=== PATIENT | female | born 1975 | race Caucasian/White ===

== ENCOUNTER 2023-05-23 12:46 | Emergency (ER) | payer OTHER, SELFPAY ==
[2023-05-23 12:57] VITALS: BP 150/87; PULSE 85; RESP 18; O2SAT 84; BMI 18.8
[2023-05-23 13:07] VITALS: TEMP 36.6
--- NOTE | 2023-05-23 13:52 | ED.BACK1 ---
Documented by User: KIKA Machado 05/23/23 14:11 HPI - Back Pain/Injury General Chief Complaint: Back Pain/Injury Stated Complaint: BACK PAIN, LEFT HIP PAIN Time Seen by Provider: 05/23/23 13:49 Source: patient Mode of arrival: Wheelchair Limitations: no limitations History of Present Illness HPI Narrative: 47-year-old female with a history of chronic neck and back pain who sees a neurologist presents for left-sided back pain for the past 5 days. Pain radiates down to left knee. She states that she was supposed to have lower back surgery 4 months ago, but she cannot quit smoking. She has been taking Motrin, Tylenol, Flexeril and Zanaflex. She went to the chiropractor 5 days ago and had an x-ray that showed degenerative changes. She has an appointment tomorrow with her neurologist. Denies injury. denies hx CA or IVDU. denies bowel or bladder incontinence. Moving around makes pain worse. denies fever, abd pain or dysuria. Denies BLE swelling, temp or sensation changes. Related Data Previous Rx's Medication Instructions Recorded tizanidine 4 mg tablet (Zanaflex) 4 mg PO TID PRN muscle spasticity 05/23/23 5 days #15 tabs Allergies Allergy/AdvReac Type Severity Reaction Status Date / Time No Known Drug Allergies Allergy Verified 05/23/23 12:59 Review of Systems ROS Status of ROS 10 or more systems reviewed and unremarkable except as noted in history and below Exam Narrative Exam Narrative: General: A&Ox3, no distress, talking in full an complete sentences skin: warm, dry, intact head: normocephalic, atraumatic eyes: EOMI nose: nares patent neck: supple, trachea midline respiratory: non-labored extremities: FROM x 4, strength +5/5 spine: Tender to left L4/5 paraspinal muscles and SI joint area, decreased range of motion due to pain, no step offs, no vertebral tenderness neuro: A&Ox3 psych: appropriate mood and affect, cooperative Constitutional Vital Signs, click to edit/add: Last Vital Signs Temp 98 F 05/23/23 13:07 Pulse 85 05/23/23 12:57 Resp 18 05/23/23 12:57 BP 150/87 H 05/23/23 12:57 Pulse Ox 84 L 10/09/23 12:57 Course Vital Signs Vital signs: Vital Signs Pulse Rate 85 05/23/23 12:57 Respiratory Rate 18 05/23/23 12:57 Blood Pressure 150/87 H 05/23/23 12:57 Pulse Oximetry 84 L 05/23/23 12:57 Temperature 98 F 05/23/23 13:07 Pulse Rate 85 05/23/23 12:57 Respiratory Rate 18 05/23/23 12:57 Blood Pressure 150/87 H 05/23/23 12:57 Pulse Oximetry 84 L 05/23/23 12:57 MDM - Back Pain/Injury MDM Narrative Medical decision making narrative: Patient did show me the results of her x-ray that she had at the chiropractor. This showed degenerative changes. After shared decision making, we will not do imaging today as she just had an x-ray. OARRS reviewed and she is on Suboxone. She is medicated with Norflex and given Decadron and a lidocaine patch and a prescription for Zanaflex and is to keep her neurologist appointment tomorrow. afebrile, not tachypneic, not tachycardic, tolerating p.o., not hypoxic, non toxic appearing and ambulating at baseline and hemodynamically stable to be d/c. answered all questions. educated on SE of meds. pt in agreement with tx. educated when to return to ER. Patient is asking for Toradol prior to discharge and is given 15 mg IM. Discharge Plan Discharge Chief Complaint: Back Pain/Injury Clinical Impression: Lumbar back pain with radiculopathy affecting left lower extremity Strain of lumbar region Qualifiers: Encounter type: initial encounter Qualified Code(s): S39.012A - Strain of muscle, fascia and tendon of lower back, initial encounter Patient Disposition: Home, Self-Care Time of Disposition Decision: 13:52 Condition: Good Mode of Transportation: Private Vehicle Prescriptions / Home Meds: New tizanidine [Zanaflex] 4 mg tablet 4 mg PO TID PRN (Reason: muscle spasticity) 5 Days Qty: 15 0RF Instructions: Low Back Strain (ED) Stand Alone Forms: Portal Instructions Referrals: KRISTINA HALL [Physician] - 05/24/23 RICK GRAHAM [Primary Care Provider] - 1 week Discharge Date/Time: 05/23/23 14:25 Documented by User: Isaac Erickson MD 05/23/23 17:17 HPI - Back Pain/Injury General Chief Complaint: Back Pain/Injury Stated Complaint: BACK PAIN, LEFT HIP PAIN Time Seen by Provider: 05/23/23 13:49 Related Data Previous Rx's Medication Instructions Recorded tizanidine 4 mg tablet (Zanaflex) 4 mg PO TID PRN muscle spasticity 05/23/23 5 days #15 tabs Allergies Allergy/AdvReac Type Severity Reaction Status Date / Time No Known Drug Allergies Allergy Verified 05/23/23 12:59 Exam Narrative Exam Narrative: General: A&Ox3, no distress, talking in full an complete sentences skin: warm, dry, intact head: normocephalic, atraumatic eyes: EOMI nose: nares patent neck: supple, trachea midline respiratory: non-labored extremities: FROM x 4, strength +5/5 spine: Tender to left L4/5 paraspinal muscles and SI joint area, decreased range of motion due to pain, no step offs, no vertebral tenderness; No signs of saddle anesthesia or cauda equina. neuro: A&Ox3 psych: appropriate mood and affect, cooperative Constitutional Vital Signs, click to edit/add: Last Vital Signs Temp 98 F 05/23/23 13:07 Pulse 85 05/23/23 12:57 Resp 18 05/23/23 12:57 BP 150/87 H 05/23/23 12:57 Pulse Ox 84 L 05/23/23 12:57 Course Vital Signs Vital signs: Vital Signs Pulse Rate 85 05/23/23 12:57 Respiratory Rate 18 05/23/23 12:57 Blood Pressure 150/87 H 05/23/23 12:57 Pulse Oximetry 84 L 05/23/23 12:57 Temperature 98 F 05/23/23 13:07 Pulse Rate 85 05/23/23 12:57 Respiratory Rate 18 05/23/23 12:57 Blood Pressure 150/87 H 05/23/23 12:57 Pulse Oximetry 84 L 05/23/23 12:57 MDM - Back Pain/Injury MDM Narrative Medical decision making narrative: Patient did show me the results of her x-ray that she had at the chiropractor. This showed degenerative changes. After shared decision making, we will not do imaging today as she just had an x-ray. OARRS reviewed and she is on Suboxone. She is medicated with Norflex and given Decadron and a lidocaine patch and a prescription for Zanaflex and is to keep her neurologist appointment tomorrow. afebrile, not tachypneic, not tachycardic, tolerating p.o., not hypoxic, non toxic appearing and ambulating at baseline and hemodynamically stable to be d/c. answered all questions. educated on SE of meds. pt in agreement with tx. educated when to return to ER. Patient is asking for Toradol prior to discharge and is given 15 mg IM. I, Dr Erickson, have reviewed the above progress note and course of action in the ER; agree with the above. I have personally seen and evaluated this patient, gone over history and physical, and discussed disposition and treatment plan with the patient. Discharge Plan Discharge Chief Complaint: Back Pain/Injury Clinical Impression: Lumbar back pain with radiculopathy affecting left lower extremity Strain of lumbar region Qualifiers: Encounter type: initial encounter Qualified Code(s): S39.012A - Strain of muscle, fascia and tendon of lower back, initial encounter Patient Disposition: Home, Self-Care Time of Disposition Decision: 13:52 Condition: Good Mode of Transportation: Private Vehicle Prescriptions / Home Meds: New tizanidine [Zanaflex] 4 mg tablet 4 mg PO TID PRN (Reason: muscle spasticity) 5 Days Qty: 15 0RF Instructions: Low Back Strain (ED) Stand Alone Forms: Portal Instructions Referrals: KRISTINA HALL [Physician] - 05/24/23 RICK GRAHAM [Primary Care Provider] - 1 week Discharge Date/Time: 05/23/23 14:25
[2023-05-23] MEDS: DEXAMETHASONE SODIUM PHOSPHATE 10 MG/ML VIAL PO (14:00)
[2023-05-23] MEDS: ORPHENADRINE 60 MG/ 2 ML VIAL IM (14:00)
[2023-05-23] MEDS: KETOROLAC TROMETHAMINE 30 MG/ML VIAL 15 MG IM (14:19)
[2023-05-23] MEDS: LIDOCAINE 5% PATCH 1 PATCH TOPICAL (14:20)
== END 2023-05-23 14:25 | disposition home or self-care (01) ==
PROVIDERS: Emergency Provider Emergency Medicine; PCP Family Medicine
DX: M54.50 Low back pain, unspecified (principal); M54.16 Radiculopathy, lumbar region
CPT/HCPCS: 96372; 99284; J1100

== ENCOUNTER 2023-07-12 12:34 | Emergency (ER) | payer OTHER, SELFPAY ==
[2023-07-12 12:49] VITALS: BP 141/85; PULSE 95; RESP 18; TEMP 36.6; O2SAT 98; BMI 22.7
--- NOTE | 2023-07-12 12:58 | ED.BACK1 ---
HPI - Back Pain/Injury General Chief Complaint: Back Pain/Injury Stated Complaint: GENERAL WEAKNESS Time Seen by Provider: 07/12/23 12:52 Source: patient Mode of arrival: ambulance Limitations: no limitations History of Present Illness HPI Narrative: 37-year-old female presents for left lower back pain. The patient has a history of a herniated disc and has had back surgery and neck surgery. She states she had an MRI two weeks ago. She states that the pain got severe in the past day or two. It is severe and continuous and goes into her left leg. Related Data Previous Rx's Medication Instructions Recorded tizanidine 4 mg tablet (Zanaflex) 4 mg PO TID PRN muscle spasticity 05/23/23 5 days #15 tabs etodolac 400 mg tablet (Lodine) 400 mg PO Q8H PRN pain #20 tabs 07/12/23 methocarbamol 750 mg tablet 750 mg PO Q6H PRN pain #20 tabs 07/12/23 Allergies Allergy/AdvReac Type Severity Reaction Status Date / Time No Known Drug Allergies Allergy Verified 05/23/23 12:59 Review of Systems ROS Narrative A ten point review of systems is negative except as noted above. PFSH PFSH Social History Smoking status: Current every day smoker Exam Narrative Exam Narrative: Nurses note and vital signs reviewed and patient is not hypoxic. General: The patient appears uncomfortable. She is laying on her right side with her knees and hips flexed. Skin: Warm, dry, no pallor noted. There is no rash noted. Head: Normocephalic, atraumatic Eye: Normal conjunctiva, no drainage Ears, Nose, Mouth, and Throat: oral mucosa is moist. Nares patent. Cardiovascular: Regular Rate and Rhythm Respiratory: Patient is in no distress, no accessory muscle use, lungs are clear to auscultation, no wheezing, rales or rhonchi Back: no bruise or rash or erythema present GI: soft and nontender Musculoskeletal: The patient has no evidence of calf tenderness, no pitting edema, symmetrical pulses noted bilaterally Neurological: A&O, normal speech Psychiatric: Cooperative Constitutional Vital Signs, click to edit/add: Last Vital Signs Temp 97.8 F 07/12/23 12:49 Pulse 95 H 07/12/23 12:49 Resp 18 07/12/23 12:49 BP 141/85 07/12/23 12:49 Pulse Ox 98 07/12/23 12:49 Course Vital Signs Vital signs: Vital Signs Temperature 97.8 F 07/12/23 12:49 Pulse Rate 95 H 07/12/23 12:49 Respiratory Rate 18 07/12/23 12:49 Blood Pressure 141/85 07/12/23 12:49 Pulse Oximetry 98 07/12/23 12:49 Temperature 97.8 F 07/12/23 12:49 Pulse Rate 95 H 07/12/23 12:49 Respiratory Rate 18 07/12/23 12:49 Blood Pressure 141/85 07/12/23 12:49 Pulse Oximetry 98 07/12/23 12:49 MDM - Back Pain/Injury MDM Narrative Medical decision making narrative: she was given IM injections and is feeling improved. She is scheduled for a myelogram on July 18 and then she'll see her back specialist on July 20. Treatment diagnosis and follow-up were discussed with the patient. Differential Diagnosis Differential diagnosis: Likely lumbar radiculopathy and sciatica Discharge Plan Discharge Chief Complaint: Back Pain/Injury Clinical Impression: Low back pain Patient Disposition: Home, Self-Care Time of Disposition Decision: 15:27 Condition: Good Mode of Transportation: Private Vehicle Prescriptions / Home Meds: New etodolac [Lodine] 400 mg tablet 400 mg PO Q8H PRN (Reason: pain) Qty: 20 0RF methocarbamol 750 mg tablet 750 mg PO Q6H PRN (Reason: pain) Qty: 20 0RF No Action tizanidine [Zanaflex] 4 mg tablet 4 mg PO TID PRN (Reason: muscle spasticity) 5 Days Qty: 15 0RF Instructions: Back Pain (ED) Additional Instructions: do not take tizanidine with Robaxin Stand Alone Forms: Portal Instructions Referrals: RICK GRAHAM [Physician] - 1 week
[2023-07-12] MEDS: ORPHENADRINE 60 MG/ 2 ML VIAL IM (13:12)
[2023-07-12] MEDS: METHYLPREDNISOLONE SOD SUCC PF 125 MG/2 ML VIAL IM (13:13)
[2023-07-12] MEDS: KETOROLAC TROMETHAMINE 60 MG/2 ML VIAL IM (13:13)
[2023-07-12] MEDS: MORPHINE SULFATE 10 MG/ML VIAL IV (14:15)
[2023-07-12 15:31] VITALS: BP 124/76; PULSE 94; RESP 18; O2SAT 98
== END 2023-07-12 15:36 | disposition home or self-care (01) ==
PROVIDERS: Emergency Provider Emergency Medicine
DX: M54.50 Low back pain, unspecified (principal); F17.210 Nicotine dependence, cigarettes, uncomplicated
CPT/HCPCS: 96372; 96374; 99284; J2930

== ENCOUNTER 2023-09-22 16:50 | Emergency (ER) | payer OTHER, SELFPAY ==
[2023-09-22 16:51] VITALS: BP 98/63; PULSE 87; RESP 20; TEMP 36.6; O2SAT 97; BMI 19.7
--- NOTE | 2023-09-22 17:01 | ED_ITS ---
HPI - Back Pain/Injury General Chief Complaint: Back Pain/Injury Stated Complaint: Back Pain Time Seen by Provider: 09/22/23 16:51 Source: patient Mode of arrival: ambulance History of Present Illness HPI Narrative: Patient is a 48-year-old female who presents to the emergency any room by ambulance from her residence in [place] where she lives for increased pain to the left low back and left hip radiating into the groin. She states the pain radiates into the left leg to the knee. She has had no new peripheral paresthesias, urinary or stool incontinence. She states she is unable to ambulate due to the pain. She had surgery 3 weeks ago at [facility] for a herniated disc. She was treated with antibiotics for fluid collection in the spine and states that this appears to cleared up well. She states today she had an abrupt onset of increasing pain to the left low back. She is noted to have recently been on Percocet but when this prescription ended over a week ago, painting machine operator has placed her on Suboxone which she has been taking for the last week. She has also been prescribed multiple courses of NSAIDs and muscle relaxants from various providers per her medication history. She states she came to this hospital by [facility] Related Data Home Medications Medication Instructions Recorded Confirmed buprenorphine 8 mg-naloxone 2 mg film 09/22/23 sublingual film cyanocobalamin (vitamin B-12) mcg 09/22/23 1,000 mcg/mL injection solution cyclobenzaprine 10 mg tablet mg 09/22/23 dicyclomine 20 mg tablet mg 09/22/23 ibuprofen 600 mg tablet mg 09/22/23 omeprazole 20 mg capsule,delayed mg 09/22/23 release Previous Rx's Medication Instructions Recorded tizanidine 4 mg tablet (Zanaflex) 4 mg PO TID PRN muscle spasticity 05/23/23 5 days #15 tabs methylprednisolone 4 mg tablets in See Rx Instructions .Route 09/22/23 a dose pack (Medrol (Kt)) .COMPLEX #21 ea Allergies Allergy/AdvReac Type Severity Reaction Status Date / Time No Known Drug Allergies Allergy Verified 05/23/23 12:59 Review of Systems ROS Constitutional Denies: fever or chills Ears, nose, mouth, and throat Denies: throat pain or nasal congestion Cardiovascular Denies: chest pain Respiratory Denies: shortness of breath or cough Gastrointestinal Denies: nausea or vomiting Musculoskeletal Reports: back pain and extremity pain; Denies: neck pain, extremity swelling, joint pain or limited range of motion Integumentary/Breast Denies: rash Neurological Denies: headache Hematologic/Lymphatic Denies: easy bruising or easy bleeding [facility] Social History Smoking status: Current every day smoker Exam Narrative Exam Narrative: Gen.: Awake, alert, in no distress Head: Normocephalic, atraumatic ENT: Moist mucous membranes Respiratory: No respiratory distress Back: Well-healing surgical incision of the lumbar spine with no surrounding erythema. Mild edema noted. Diffusely tender of the low back and left posterior hip and paraspinal muscles of the left lumbar spine. No obvious deformity. Extremities: Moves extremities equally, Patient is resting with bilateral knees flexed at the hips. She has normal dorsiflexion and plantarflexion of the lower extremities with no decrease in sensation to the medial thighs Psych: Normal mood and affect Neuro: No focal neuro deficit Skin: Warm, dry, intact Constitutional Vital Signs, click to edit/add: Last Vital Signs Temp 98 F 09/22/23 16:51 Pulse 87 09/22/23 16:51 Resp 20 09/22/23 16:51 BP 98/63 09/22/23 16:51 Pulse Ox 97 09/22/23 16:51 O2 Del Method Room Air 09/22/23 16:51 Course Vital Signs Vital signs: Vital Signs Temperature 98 F 09/22/23 16:51 Pulse Rate 87 09/22/23 16:51 Respiratory Rate 20 09/22/23 16:51 Blood Pressure 98/63 09/22/23 16:51 Pulse Oximetry 97 09/22/23 16:51 Oxygen Delivery Method Room Air 09/22/23 16:51 Temperature 98 F 09/22/23 16:51 Pulse Rate 87 09/22/23 16:51 Respiratory Rate 20 09/22/23 16:51 Blood Pressure 98/63 09/22/23 16:51 Pulse Oximetry 97 09/22/23 16:51 Oxygen Delivery Method Room Air 09/22/23 16:51 MDM - Back Pain/Injury MDM Narrative Medical decision making narrative: Patient treated with IV Toradol, Norflex, Solu-Medrol. She had no improvement of pain and was given additional Valium. She has stable vital signs, no focal neurodeficits. She removed her IV by accident. CT shows postsurgical changes with no evidence of acute process and incision to the low back is healing well. I discussed the case with the patient's neurosurgeon, Dr. Fontanez In [place] who is in agreement with treatment plan, he does not feel she needs to be emergently transferred to [facility] or be admitted for pain control/MRI. Patient was made aware of the limitations of pain control with narcotics while on Suboxone. Dr. Fontanez Recommended a Medrol Dosepak. He will see her in the office on Tuesday. Patient reexamined by attending physician prior to discharge. After the patient was reexamined by Dr. Link, he requested that the patient receive 1 mg IM Dilaudid and be discharged home on a Medrol Dosepak. Patient was given Dilaudid and Zofran, she will not be prescribed any additional narcotics from this emergency department as she is on Suboxone. Medical Records Attestation: I reviewed the patient's medical records. Imaging Data CT lumbar spine: Attestation: I have reviewed the pertinent imaging results. Radiologist's impression: ITS Impressions Lumbar Spine CT 09/22/23 17:36 IMPRESSION: 1. No acute lumbar spine abnormalities. 2. L2-L3 advanced degenerative disc changes and posterior disc ossify complex causing spinal canal stenosis that is at least moderate. 3. L3-L5 posterior jennifer and pedicle screw fusion with laminectomies. Electronically authenticated by: MARIO PELAEZ Date: 09/22/2023 17:51 Discharge Plan Discharge Chief Complaint: Back Pain/Injury Clinical Impression: Low back pain Patient Disposition: Home, Self-Care Time of Disposition Decision: 19:10 Condition: Good Prescriptions / Home Meds: New methylprednisolone [Medrol (Kt)] 4 mg tablets,dose pack See Rx Instructions .ROUTE .COMPLEX Qty: 21 0RF Rx Instructions: Taper as directed No Action tizanidine [Zanaflex] 4 mg tablet 4 mg PO TID PRN (Reason: muscle spasticity) 5 Days Qty: 15 0RF cyclobenzaprine 10 mg tablet dicyclomine 20 mg tablet cyanocobalamin (vitamin B-12) 1,000 mcg/mL solution omeprazole 20 mg capsule,delayed release(DR/EC) ibuprofen 600 mg tablet buprenorphine-naloxone 8-2 mg film Instructions: Acute Low Back Pain (ED) Additional Instructions: Please follow up with Dr. Fontanez's office on Tuesday Stand Alone Forms: Portal Instructions Referrals: Physician,Non-Staff, MD [Primary Care Provider] - 1 week Discharge Date/Time: 09/22/23 19:29
--- OUTSIDE RECORDS SUMMARY | 2023-09-22 17:01 | XMS_ITS | CCD ---
Author Name Unknown Address [address] [place] [address] Organization [facility] Care Team Providers Care Chemical Processor Name Role Phone House, Sr Cristiano Barnes Primary Care Provider SANTOS, SR CRISTIANO Barnes Primary Care Unavailable KIM, BIB H. Admitting Unavailable KIM, BIB H. Attending Unavailable DALLAS, SR CRISTIANO Barnes Primary Care Unavailable LUKE WILKINS Referring Unavailab le SANTOS, SR CRISTIANO Barnes Primary Care Unavailable KIM, BIB H. Attending Unavailable KIM, BIB H. Referring Unavailable Vick Mawxell MD Unavailable Mccausland Sr., Cristiano Dockery Primary Care Provider Jak Steele Unavailable Vick Maxwell Unavailable DO Cristiano Graham Primary Care Provider ZANDER Ulrich Attending Provider Michel Venegas Unavailable [phone] DO Cristiano Graham Primary Care Provider [phone] ZANDER Ulrich Attending Provider DO Cristiano Graham Attending Provider Vick Maxwell MD Unavailable Mccausland Sr., Cristiano Dockery Primary Care Provider DO Cristiano Graham Primary Care Provider MD Michel Venegas Attending Provider DAVID OCLON Attending Unavailable DAVID COLON Admitting Unavailable DR ERIC HE Consulting Unavailable DR CRISTIANO GRAHAM Primary Care Unavailable DAVID COLON Consulting Unavailable JUAN, LEE Consulting Unavailable MELITON, ALOK Consulting Unavailable NERI, DR ERIC Juárez Consulting Unavailable SANTOS, DR QUINONEZ Primary Care Unavailable ISABEL, JAMEL Admitting Unavailable ISABEL, JAMEL Attending Unavailable JAMEL HALL Consulting Unavailable HELIO, DR SPRAGUE Admitting Unavailable HOUSE, DR QUINONEZ Primary Care Unavailable HAY, DR SPRAGUE Consulting Unavailable HAY, DR SPRAGUE Attending Unavailable CRISTIANO GRAHAM Primary Care Unavailable KIKA Alex Attending Unavailable Isai, KIKA Aranda Admitting Unavailable KIKA Alex Attending Unavailable Isai, KIKA Aranda Admitting Unavailable CRISTIANO GRAHAM Primary Care Unavailable DO Cristiano Graham Primary Care Provider MD Michel Venegas Attending Provider DO Hussain Cristobal Emergency Provider TOO HUGHES Attending Unavailable [facility] SR, [facility] TOO Walker Referring Unavailable TOO HUGHES Attending Unavailable LIE MARTINEZ Referring Unavailable [facility] SR, [facility] Unavailable DO Cristiano Graham Primary Care Provider Eloy Mcdaniel Attending Provider Cristiano Graham Primary Care Physician SOBEIDA WHITNEY Referring Unavailable Star Sherman Attending Unavailable Star Sherman Admitting Unavailable NO FAMILY, PHYSICIAN Primary Care Provider Unava ZANDER Bey Emergency Provider [phone] DO Cristiano Graham Primary Care Provider Eloy Mcdaniel Attending Provider NO FAMILY, PHYSICIAN Primary Care Provider Unava ZANDER Bey Emergency Provider [phone] ROXANA Garcia Attending Provider Eloy Mcdaniel Admitting Unavailable Eloy Mcdaniel Attending Unavailable Cristiano Graham [facility] Care Unavailable Gail Garcia Admitting Unavailable Gail Garcia Attending Unavailable NO FAMILY, PHYSICIAN Primary Care Unavailable Cristiano Graham Admitting Unavailable House, Cristiano Primary Care Unavailable House, Cristiano Attending Unavailable NO FAMILY, PHYSICIAN Primary Care Unavailable Bar Johnson Admitting Unavailable Bar Johnson Attending Unavailable Michel Venegas Attending Unavailabl e House, Cristiano Primary Care Unavailable Michel Venegas Admitting Unavailabl e House, Cristiano Primary Care Unavailable Hussain Cristobal Admitting Unavailable Hussain Cristobal Attending Unavailable HARSH DING Referring Unavailable HOUSE SR, CRISTIANO P Primary Care Unavailable HOUSE SR, CRISTIANO P Primary Care Unavailable HOEFLINGER, HARSH Referring Unavailable HOUSE SR, CRISTIANO P Primary Care Unavailable HARSH DING Admitting Unavailable HARSH DING Attending Unavailable HARSH DING Referring Unavailable HOUSE SR, CRISTIANO P Primary Care Unavailable Allergies Allergy Classification Reported Allergen(s) Allergy Type Date of Onset Reaction(s) Facility (1 source) No Known Medication Allergies; Translations: [No Known Medication Allergies] Propensity to adverse reactions (disorder) [facility] Repository Medications Current Medications Medication Drug Class(es) Dates Sig (Normalized) Sig (Original) acetaminophen 325 mg oral tablet (1 source) take 2 tablets by mouth every six hours as needed for pain acetaminophen (TYLENOL) 325 MG tablet Take 650 mg by mouth every 6 hours as needed for Pain 0 Active acetaminophen 325 mg / oxyCODONE hydrochloride 7.5 mg oral tablet (12 sources) Opioid Agonist Start: 01-01-2021 End: 01-08-2021 take 1 tablet by mouth every six hours as needed for pain oxyCODONE-acetamino phen (PERCOCET) 7.5-325 MG per tablet Indications: Post-op pain Take 1 tablet by mouth every 6 hours as needed for Pain for up to 7 days. 28 tablet 0 01/01/2021 01/08/2021 Active Start: 12-30-2020 oxyCODONE-acet aminophen (PERCOCET) 7.5-325 MG per tablet 1 tablet Start: 12-30-2020 End: 12-30-2020 take 1 tablet by mouth every six hours as needed for pain 1 tablet, Oral, EVERY 6 HOURS PRN, Pain Moderate (4-6), Starting on Tue12/30/20 at 1607 Maximum dose of acetaminophen is 4000 mg from all sources in 24 hours. Start: 05-10-2019 End: 2020 take 1 tablet by mouth every four to six hours Oxycodone-Acetaminophen Discontinued 1 T AB PO EVERY 4-6 HOURS May 09, 2019 11:00pm 2020 10:45am albuterol CFC free 90 mcg/inh inhalation aerosol (1 source) Start: 02-24-2021 albuterol CFC free 90 mcg/inh inhalation aerosol Refills(s) 0 Start Date: 02/24/21 Status: Ordered amitriptyline hydrochloride 50 mg oral tablet (20 sources) Tricyclic Antidepressant Start: 12-30-2020 take 100 mg by mouth once daily 100 mg, Oral, NIGHTLY, First dose on Tue12/30/20 at 2100 Start: 07-31-2019 take 100 mg by mouth once daily at bedtime amitriptyline 100 mg, Oral, Once a day (at bedtime), Refills(s) 0, Sleep Start Date: 07/31/19 Status: Ordered amitriptyline (E LAVIL) 75 mg tablet Take by mouth daily at bedtime. 0 Active amitriptyline (E LAVIL) 75 MG tablet Take 100 mg by mouth nightly 0 Active Comment on above: Take by mouth daily at bedtime. amLODIPine (1 source) Dihydropyridine Calcium Channel Andre Start: 12-30-2020 amLODIPine (NORVASC) tablet 10 mg amLODIPine 10 mg / benazepril hydrochloride 20 mg oral capsule (13 sources) Dihydropyridine Calcium Channel Andre, Angiotensin Converting Enzyme Inhibitor Start: 12-12-2020 amLODIPine-benazepril (LOTREL) 10-20 MG per capsule Take by mouth daily 0 12/12/2020 Active Start: 11-10-2020 amLODIPine-paulo azepril (LOTREL) 10-20 mg per capsule 0 11/10/2020 Active busPIRone hydrochloride 7.5 mg oral tablet (18 sources) Start: 12-30-2020 take 1 tablet by mouth twice daily 15 mg, Oral, 2 TIMES DAILY, First dose on Tue12/30/20 at 2100 This 15 mg tablet can be split into thirds (5 mg) or halves (7.5 mg) based on the ordered dose. take 1 tablet by mouth three osmar es daily busPIRone (BUSPAR) 15 mg tablet Take 15 mg by mouth three times daily. 0 Active take 1 tablet by shruthi th every twelve hours busPIRone HCl 15 MG 1 tablet Orally Twic e a day Not-Taking Comment on above: Take 15 mg by mouth three times daily. cariprazine 4.5 mg oral capsule (20 sources) Atypical Antipsychotic Start: 12-31-2020 take 4.5 mg by mouth once daily 4.5 mg, Oral, DAILY, First dose on Tue12/31/20 at 0900 Do not crush or break. Start: 10-15-2020 Vraylar 4.5 mg oral capsule Refills(s) 0 Start Date: 02/24/21 Status: Ordered Comment on above: take 1 capsule by mo uth once daily cephalexin 500 mg oral capsule (3 sources) Cephalosporin Antibacterial Start: 01-01-20 End: 01-09-20 take 1 capsule by mouth three times daily cephALEXin (KEFLEX) 500 MG capsule Take 1 capsule by mouth 3 times daily for 7 days 21 capsule 0 01/01/2021 01/08/2021 Active cyclobenzaprine hydrochloride 5 mg oral tablet (19 sources) Muscle Relaxant Start: 12-31-19 take 10 mg by mouth three times daily as needed for muscle spasms 10 mg, Oral, 3 TIMES DAILY PRN, Muscle spasms, Starting on Tue12/30/20 at 1607 Start: 02-21-2020 cyclobenzaprin e (FLEXERIL) 10 mg tablet Take 10 mg by mouth. 0 02/21/2020 Active take 1 tablet by shruthi every twenty-four hours Cyclobenzaprine HCl 10 MG 1 tablet at bedtime as needed Orally Once a day Active Comment on above: Take 10 mg by mouth. dicyclomine hydrochloride 20 mg oral tablet (12 sources) Anticholinergic Start: 10-13-2022 take 1 tablet by mouth every six hours Start: 2020 End: 09-16-2022 take 20 mg by mouth three times daily Dicyclomine Discontinued 20 MG PO Three times daily 2020 12:00am September 16, 2022 9:27am docusate sodium 50 mg / sennosides, alf 8.6 mg oral tablet (3 sources) Start: 12-30-2020 End: 01-11-2021 take 1 tablet by mouth twice daily sennosides-docusate sodium (SENOKOT-S) 8.6-50 MG tablet Take 1 tablet by mouth 2 times daily for 10 days 20 tablet 0 01/01/2021 01/11/2021 Active 72 hr fentaNYL 0.025 mg/hr transdermal system (4 sources) Opioid Agonist Start: 01-02-2021 End: 01-17-2021 fentaNYL (DURAGESIC) 25 MCG/HR Indications: Post-op pain Place 1 patch onto the skin every 72 hours for 15 days. 5 patch 0 01/02/2021 01/17/2021 Active Start: 12-30-2020 1 patch, Trans dermal, Administer over 72 Hours, EVERY 72 HOURS, First dose on Tue12/30/20 at 1630 Start: 12-30-2020 End: 12-30-2020 fentaNYL (SUBLIMAZE) injecti on 25 mcg gabapentin 800 mg oral tablet (20 sources) Anti-epileptic Agent Start: 04-12-2023 take 800 mg by mouth three times daily gabapentin 800 mg, Oral, TID, Refills(s) 0 Start Date: 04/12/23 Status: Ordered Start: 12-30-2020 take 800 mg by mouth twice scar ly 800 mg, Oral, 2 TIMES DAILY, First dose on Tue12/30/20 at 2100 Start: 2020 take 300 mg by mouth twice scar ly Gabapentin Active 300 MG PO Twice daily 2020 12:00am take 1 tablet by shruthi every twenty-four hours Gabapentin 600 MG 1 tablet Orally Once a day Active take 1 capsule by mo [facility] three times daily gabapentin (NEURONTIN) 300 mg capsule Take 300 mg by mouth three times daily. 0 Active take 1 tablet by shruthi twice daily gabapentin (NEURONTIN) 800 MG tablet Take 800 mg by mouth 2 times daily. 0 Active Comment on above: Take 300 mg by mouth three times daily. 500 ml glucose 50 mg/ml / potassium chloride 0.02 meq/ml / sodium chloride 4.5 mg/ml injection (1 source) Start: 12-31-19 Intravenous, at 100 mL/hr, CONTINUOUS, Starting on Tue12/30/20 at 1630, Post-op hydroCHLOROthiazide / Lisinopril (20 sources) Thiazide Diuretic, Angiotensin Converting Enzyme Inhibitor take 10-12.5 mg by mouth once lisinopril-hydro CHLOROthiazide (PRINZIDE,ZESTOR ETIC) 10-12.5 mg per tablet Take 1 tablet by mouth once daily. 0 Active Lisinopril-hydro CHLOROthiazide Active lisinopril-hydro CHLOROthiazide (PRINZIDE;ZESTORETIC) 10-12.5 MG per tablet daily 0 Active Comment on above: Take 1 tablet by shruthi once daily. 1 ml HYDROmorphone hydrochloride 1 mg/ml cartridge (2 sources) Opioid Agonist Start: 12-31-19 End: 12-31-19 take 0.5 mg by mouth every three hours as needed for pain 0.5 mg, Intravenous, EVERY 3 HOURS PRN, Pain Moderate (4-6), Starting on Tue12/30/20 at 1607 If oral and IV narcotics ordered, use oral first and only use IV if oral is ineffective or cannot take oral. Do Not give oral and IV within 1 hour of each other unless specifically ordered. ibuprofen 600 mg oral tablet (5 sources) Nonsteroidal Anti-inflammatory Drug Start: 04-12-20 take 600 mg by mouth three times daily ibuprofen 600 mg, Oral, TID, Refills(s) 0 Start Date: 04/12/23 Status: Ordered lansoprazole 30 mg delayed release oral capsule (12 sources) Proton Pump Inhibitor Start: 05-10-20 19 take 30 mg by mouth once daily Lansoprazole Active 30 MG PO Daily May 09, 2019 11:00pm lisinopril 20 mg oral tablet (6 sources) Angiotensin Converting Enzyme Inhibitor Start: 09-16-19 take 20 mg by mouth once daily Lisinopril Active 20 MG PO Daily September 16, 2022 12:00am omeprazole 20 mg delayed release oral capsule (20 sources) Proton Pump Inhibitor Start: 02-25-20 21 take 1 capsule by mouth once daily omeprazole 20 mg Cap-DR 20 mg = 1 cap(s), Oral, Daily, # 30 cap(s), Refills(s) 0 Start Date: 02/24/21 Status: Ordered Start: 09-14-2020 omeprazole (CT ILOSEC) 20 mg capsule 40 mg. 0 09/14/2020 Active Comment on above: 40 mg. pantoprazole 40 mg delayed release oral tablet (1 source) Proton Pump Inhibitor Start: 1 pantoprazole (PROTONIX) tablet 40 mg rOPINIRole 1 mg oral tablet (20 sources) Nonergot Dopamine Agonist Start: 3 take 1 mg by mouth once daily ropinirole 1 mg, Oral, Daily, Refills(s) 0 Start Date: 04/12/23 Status: Ordered Start: 12-31-2020 take 1 mg by mouth o nce daily as needed 1 mg, Oral, NIGHTLY PRN, restless leg, Starting on Tue12/31/20 at 2100 Start: 05-10-2019 take 1 tablet by shruthi th once daily at bedtime Ropinirole (Requip) 0.25 mg Tablet Active 0.25 MG PO Daily at bedtime May 09, 2019 11:00pm take 1 tablet by shruthi th once daily at bedtime Requip 0.5 MG 1 tablet 1 to 3 hours before bedtime Orally Once a day Not-Taking Comment on above: Take 1 mg by mouth. 3 ml sodium chloride 9 mg/ml injection (3 sources) Start: 12-30-2020 10 mL, Intravenous, EVERY 12 HOURS SCHEDULED (2 times per day), First dose on Tue12/30/20 at 2100, Post-op Start: 12-30-2020 take 10 mL intravenously once 10 mL, Intravenous, PRN, Line Care, Starting on Tue12/30/20 at 1607 After every IV line use Post-op Start: 12-30-2020 take 25 mL intraveno usly every hour as needed 25 mL, Intravenous, at 100 mL/hr, PRN, If patient receiving piggyback infusions without ordered maintenance IV fluids or with frequent/long duration piggyback infusions, Starting on Tue12/30/20 at 1607 Administer at the same rate as the piggyback being infused. Post-op tiZANidine 4 mg oral capsule (15 sources) Central alpha-2 Adrenergic Agonist Start: 09-16-2022 take 1 capsule by mouth once daily at bedtime Tizanidine (Zanaflex) 4 mg Capsule Active 4 MG PO Daily at bedtime September 16, 2022 12:00am 1-3 tabs Start: 08-19-2022 take 1 tablet by shruthi th at bedtime tiZANidine (ZANAFLEX) 4 mg tablet take 2 to 3 tablets by mouth at bedtime if needed 0 08/19/2022 Active Comment on above: take 2 to 3 tablets by mouth at bedtime if needed vitamin b12 1 mg/ml injectable solution (20 sources) Vitamin B12 Start: 12-30-2020 inject 1000 ug by intramuscular injection every 30 days 1,000 mcg, Intramuscular, EVERY 30 DAYS, First dose on Tue12/30/20 at 1630 Start: 12-02-2020 inject 1 mL by subcu taneous injection every month cyanocobalamin (VITAMIN B-12) 1,000 mcg/mL Inject 1 mL subcutaneously once every month. 1 mL 3 12/02/2020 Active Start: 12-02-2020 cyanocobalamin 1000 MCG/ML injection Inject 1,000 mcg into the muscle every 30 days 0 12/02/2020 Active Comment on above: Inject 1 mL subcutan eously once every month. vitamin B12 1 MG/ML Injectable Solution [Dodex] (1 source) Start: 04-12-20 inject 1000 ug by intramuscular injection every month Dodex 1000 mcg/mL injectable solution 1,000 mcg, IntraMuscular, qMonth, Refills(s) 0 Start Date: 04/12/23 Status: Ordered Completed/Discontinued Medications Medication Drug Class(es) Dates Sig (Normalized) Sig (Original) ALPRAZolam 1 mg oral tablet (8 sources) Benzodiazepine Start: 05-10-2019 End: 2020 take 1 tablet by mouth twice daily Alprazolam (Xanax) 1 mg Tablet Discontinued 1 MG PO Twice daily May 09, 2019 11:00pm 2020 10:44am amLODIPine-Valsarta n-HCTZ (4 sources) amLODIPine-Valsa r ferreira-HCTZ Not-Taking buprenorphine 8 mg / naloxone 2 mg sublingual tablet (20 sources) Partial Opioid Agonist, Opioid Antagonist Start: 10-26-2019 buprenorphine-nal OXone SL (SUBOXONE) 8-2 mg subl Dissolve under the tongue. 0 10/26/2019 Active Start: 10-26-2019 buprenorphine- naloxone (SUBOXONE) 8-[address] tablet Place under the tongue daily. 0 10/26/2019 Active take 1 tablet by shruthi th every twenty-four hours Buprenorphine HCl-Naloxone HCl 8-2 MG 1 tablet under the tongue and allow to dissolve Sublingual Once a day Active Suboxone Active Comment on above: Dissolve under the t ongue. calcium chloride 0.0014 meq/ml / potassium chloride 0.004 meq/ml / sodium chloride 0.103 meq/ml / sodium lactate 0.028 meq/ml injectable solution (2 sources) Start: 12-31-19 End: 12-31-19 lactated ringers infusion carisoprodol 350 mg oral tablet (8 sources) Muscle Relaxant Start: 05-10-20 End: 07-26-20 take 1 tablet by mouth three times daily Carisoprodol (Soma) 350 mg Tablet Discontinued 350 MG PO Three times daily May 09, 2019 11:00pm 2020 10:45am ceFAZolin 2000 mg injection (1 source) Cephalosporin Antibacterial Start: 12-31-19 End: 01-01-20 2,000 mg, Intravenous, EVERY 8 HOURS, 3 doses, First dose on Tue12/30/20 at 1645, Last dose on Tue12/31/20 at 0845, Post-op dexamethasone 2 mg oral tablet (11 sources) Corticosteroid Start: 11-05-19 dexAMETHasone (DECADRON) 2 mg tablet take 3 tablets by mouth daily for 3 days then 2 for 3 days then 1 for 3 days 0 11/04/2020 Active Comment on above: take 3 tablets by mo [facility] daily for 3 days then 2 for 3 days then 1 for 3 days diclofenac sodium 50 mg delayed release oral tablet (20 sources) Nonsteroidal Anti-inflammatory Drug Start: 10-14-19 take 1 tablet by mouth three times daily diclofenac, EC, (VOLTAREN) 50 mg EC tablet Take 50 mg by mouth three times daily. 0 10/13/2020 Active Start: 05-10-2019 End: 09-16-2022 Diclofenac Sodium (Voltaren) 1 % Gel Discontinued 1 PERCENT TOPICAL Daily May 09, 2019 11:00pm September 16, 2022 9:27am Start: 05-10-2019 End: 09-16-2022 take 75 mg by mouth twice daily Diclofenac Sodium Disc ontinued 75 MG PO Twice daily May 09, 2019 11:00pm September 16, 2022 9:27am take 1 tablet by shruthi every twelve hours Diclofenac Sodium 50 MG 1 tablet as needed Orally Twice a day Active take 1 tablet by shruthi every twenty-four hours Diclofenac Sodium 50 MG 1 tablet Orally Once a day Not-Taking DICLOFENAC PO 3 times daily 0 Active Comment on above: Take 50 mg by mouth three times daily. DULoxetine 60 mg delayed release oral capsule (8 sources) Serotonin and Norepinephrine Reuptake Inhibitor Start: 05-10-20 End: 09-16-19 take 1 capsule by mouth once daily Duloxetine (Cymbalta) 60 mg Capsule,Delayed Release(Dr/Ec) Discontinued 60 MG PO Daily May 09, 2019 11:00pm September 16, 2022 9:28am estrogens, conjugated (alf) 0.625 mg oral tablet (8 sources) Estrogen Start: 05-10-20 End: 06-17-20 take 1 tablet by mouth once daily Conjugated Estrogens (Premarin) 0.625 mg Tablet Discontinued 0.625 MG PO Daily May 09, 2019 11:00pm June 17, 2023 7:39pm fluconazole 50 mg oral tablet (8 sources) Azole Antifungal Start: 05-10-20 End: 09-16-19 take 1 tablet by mouth once daily Fluconazole (Diflucan) 50 mg Tablet Discontinued 50 MG PO Daily May 09, 2019 11:00pm September 16, 2022 9:28am mesalamine 1200 mg delayed release oral tablet (15 sources) Aminosalicylate Start: 09-16-19 End: 06-17-20 take 4 tablets by mouth once daily Mesalamine (Lialda) 1.2 gram tablet,delayed release (DR/EC) Discontinued 4.8 GM PO Daily 224 56 September 16, 2022 12:00am June 17, 2023 7:39pm End: 11-22-2022 Mesalamine (LIALDA) 1.2 gram EC tablet Take 1,200 mg by mouth four times daily. 0 Active Comment on above: Take 1,200 mg by shruthi th four times daily. methocarbamol 750 mg oral tablet (8 sources) Muscle Relaxant Start: 05-10-20 End: 09-16-19 take 750 mg by mouth every eight hours Methocarbamol Discontinued 750 MG PO Q8H May 09, 2019 11:00pm September 16, 2022 9:29am oxyMORphone hydrochloride 10 mg oral tablet (8 sources) Opioid Agonist Start: 05-10-20 End: 07-26-20 take 1 tablet by mouth every four to six hours Oxymorphone (Opana) 10 mg Tablet Discontinued 10 MG PO EVERY 4-6 HOURS May 09, 2019 11:00pm 2020 10:45am traMADol hydrochloride 50 mg oral tablet (8 sources) Opioid Agonist Start: 05-10-20 End: 07-26-20 take 50 mg by mouth every six hours Tramadol Discontinued 50 MG PO Q6H May 09, 2019 11:00pm 2020 10:44am divalproex sodium 500 mg delayed release oral tablet (8 sources) Mood Stabilizer, Anti-epileptic Agent Start: 05-10-20 End: 09-16-19 take 1 tablet by mouth twice daily Divalproex (Depakote) 500 mg Tablet,Delayed Release (Dr/Ec) Discontinued 500 MG PO Twice daily May 09, 2019 11:00pm September 16, 2022 9:27am ziprasidone 80 mg oral capsule (8 sources) Atypical Antipsychotic Start: 05-10-20 End: 09-16-19 take 1 capsule by mouth twice daily Ziprasidone Hcl (Geodon) 80 mg Capsule Discontinued 80 MG PO Twice daily May 09, 2019 11:00pm September 16, 2022 9:28am Problems Active Problems Problem Classification Problem Date Documented Da te Episodic/Chronic Anxiety disorders (20 sources) Mixed anxiety and depressive disorder; Translations: [Anxiety disorder, unspecified] Onset: 10-27-2020 10-27-2020 Chronic Chronic obstructive pulmonary disease and bronchiectasis (20 sources) Chronic obstructive lung disease; Translations: [Chronic obstructive pulmonary disease, unspecified] Onset: 06-30-2017 10-27-2020 Chronic Deficiency and other anemia (1 source) Anemia; Translations: [Anemia, unspecified] Episodic E Codes: Fall (1 source) Fall (on) (from) unspecified stairs and steps, initial encounter; Translations: [FALL ON FROM UNS STAIRS STEPS INIT] Onset: 08-10-2022 Episodic Essential hypertension (3 sources) Essential hypertension; Translations: [Essential (primary) hypertension] Onset: 04-25-2020 10-27-2020 Chronic Gastritis and duodenitis (4 sources) Gastritis; Translations: [Gastritis, unspecified, without bleeding] Episodic Mood disorders (1 source) Depressive disorder 10-26-2019 Chronic Occlusion or stenosis of precerebral arteries (4 sources) Carotid artery stenosis; Translations: [Occlusion and stenosis of unspecified carotid artery] Chronic Other acquired deformities (3 sources) Unspecified kyphosis, site unspecified; Translations: [Kyphosis (acquired) (postural)] Onset: 09-13-2022 Chronic Other acquired deformities (8 sources) Acquired spondylolisthesis; Translations: [Spondylolisthesis, lumbar region] Episodic Other aftercare (1 source) Other skilled nursing (current) drug therapy; Translations: [OTH [facility] CURRENT DRUG THERAPY] Onset: 09-29-2022 Episodic Other connective tissue disease (19 sources) History of cervical spine fusion; Translations: [Arthrodesis status] Onset: 10-27-2020 10-27-2020 Episodic Other gastrointestinal disorders (13 sources) Diarrhea; Translations: [Diarrhea] 09-16-2022 Episodic Other gastrointestinal disorders (1 source) Heartburn 10-26-2019 Episodic Other injuries and conditions due to external causes (1 source) Other specified injuries of lower back, initial encounter; Translations: [OTH SPEC INJURIES LOW BACK INITIAL] Onset: 08-10-2022 Episodic Other injuries and conditions due to external causes (1 source) Other specified injuries of left hip, initial encounter; Translations: [OTHER SPEC INJURIES LT HIP INITIAL] Onset: 08-10-2022 Episodic Other nervous system disorders (8 sources) Brachial plexus disorder; Translations: [Brachial plexus disorders] Chronic Other nervous system disorders (2 sources) Other chronic pain; Translations: [OTHER CHRONIC PAIN] Onset: 11-26-2021 Resolved: 11-26-2021 Chronic Other nervous system disorders (1 source) Chronic pain syndrome; Translations: [Chronic pain syndrome] Chronic Other nervous system disorders (1 source) Cervical myelopathy; Translations: [Disease of spinal cord, unspecified] Chronic Other nervous system disorders (1 source) Thoracic outlet syndrome 10-26-2019 Chronic Other nervous system disorders (1 source) Postoperative pain ; Translations: [Other acute postprocedural pain] Episodic Other nutritional; endocrine; and metabolic disorders (1 source) H/O: Disorder; Translations: [Personal history of other endocrine, nutritional and metabolic disease] Episodic Other nutritional; endocrine; and metabolic disorders (1 source) Abnormal weight loss; Translations: [Abnormal weight loss] Onset: 04-12-2023 Episodic Residual codes; unclassified (10 sources) Chronic pain; Translations: [Other chronic pain] Onset: 04-29-2020 10-27-2020 Chronic Residual codes; unclassified (1 source) Pain; Translations: [Pain, unspecified] Episodic Residual codes; unclassified (8 sources) H/O Spinal surgery; Translations: [Status post spinal surgery] Episodic Spondylosis; intervertebral disc disorders; other back problems (20 sources) Lumbar spondylosis; Translations: [Spondylosis without myelopathy or radiculopathy, lumbar region] Onset: 12-30-2020 Resolved: 11-26-2021 Chronic Spondylosis; intervertebral disc disorders; other back problems (20 sources) Low back pain; Translations: [Low back pain] Onset: 06-30-2017 Resolved: 11-18-2021 10-27-2020 Episodic Substance-related disorders (20 sources) Smoker; Translations: [Nicotine dependence, unspecified, uncomplicated] Onset: 06-30-2017 10-27-2020 Chronic Comment on above: Added secondary to d ocumentation in Social History. 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] Onset: 04-29-2020 10-27-2020 Unclassified (1 source) History of cervical spine fusion; Translations: [S/P cervical spinal fusion] Onset: 10-27-2020 10-27-2020 Unclassified (3 sources) LOW BACK PAIN, UNSPECIFIED; Translations: [LOW BACK PAIN, UNSPECIFIED] Onset: 09-29-2022 Unclassified (1 source) Unspecified fall, initial encounter; Translations: [Unspecified fall, initial encounter] Onset: 06-17-2023 Past or Other Problems Problem Classification Problem Date Documented Da te Episodic/Chronic Abdominal pain (20 sources) Right flank pain; Translations: [Unspecified abdominal pain] Onset: 10-27-2020 10-27-2020 Episodic Complications of surgical procedures or medical care (3 sources) Pseudarthrosis following spinal fusion; Translations: [Pseudarthrosis after fusion or arthrodesis] Onset: 09-13-2022 Episodic Deficiency and other anemia (19 sources) Iron deficiency anemia; Translations: [Iron deficiency anemia, unspecified] Onset: 11-11-2020 12-22-2020 Episodic Gastrointestinal hemorrhage (8 sources) Rectal hemorrhage; Translations: [Hemorrhage of anus and rectum] Onset: 09-16-2022 09-16-2022 Episodic Headache; including migraine (3 sources) Headache; Translations: [Headache] Onset: 04-29-2020 10-27-2020 Episodic Malaise and fatigue (3 sources) Asthenia; Translations: [Weakness] Onset: 09-03-2020 10-27-2020 Episodic Nonspecific chest pain (3 sources) Chest pain; Translations: [Chest pain, unspecified] Onset: 04-29-2020 10-27-2020 Episodic Nutritional deficiencies (19 sources) Cobalamin deficiency; Translations: [Deficiency of other specified B group vitamins] Onset: 11-11-2020 12-22-2020 Episodic Other aftercare (2 sources) Long-term current use of drug therapy; Translations: [Other skilled nursing (current) drug therapy] Onset: 04-29-2020 10-27-2020 Episodic Other gastrointestinal disorders (3 sources) Diarrhea, unspecified; Translations: [Diarrhea] Onset: 09-16-2022 09-16-2022 Episodic Other nervous system disorders (3 sources) Paresthesia; Translations: [Paresthesia of skin] Onset: 09-03-2020 10-27-2020 Episodic Unclassified (1 source) LOW BACK PAIN, UNSPECIFIED; Translations: [LOW BACK PAIN, UNSPECIFIED] Onset: 09-27-2022 Results Test Name Value Interpretation Reference Range Facility [facility] FOR SURGICAL PROCEDUR ESon 08-30-2023 FLUORO FOR SURGICAL PROCEDURES Radiology exam is complete. No Radiologist dictation. Please follow up with ordering provider. Final result Normal [facility] Basic Metabolic Profon 08-24 Anion gap [Moles/Vol] 10 mmol/L Normal 05-01 [facility] Comment on above: Performed By: #### B MP, CBC #### [facility] [address] [place] [address] Canteen Attendant: Zion Sweet MD BUN/CRE Ratio 13 Normal 05-04 [facility] Comment on above: Performed By: #### B MP, CBC #### [facility] [address] [place] [address] Canteen Attendant: Zion Sweet MD Calcium [Mass/Vol] 9.3 mg/dL Normal 8.6-10.4 [facility] Comment on above: Performed By: #### B MP, CBC #### [facility] [address] [facility] [place] [address] Canteen Attendant: Zion Sweet MD Chloride [Moles/Vol] 97 mmol/L Low 98-107 [facility] Comment on above: Performed By: #### B MP, CBC #### [facility] [address] [facility] [place] [address] Canteen Attendant: Zion Sweet MD CO2 [Moles/Vol] 26 mmol/L Normal 20-31 [facility] Comment on above: Performed By: #### B MP, CBC #### [facility] [address] [facility] [place] [address] Canteen Attendant: Zion Sweet MD Creatinine [Mass/Vol] 0.6 mg/dL Normal 0.5-0.9 [facility] Comment on above: Performed By: #### B MP, CBC #### [facility] [facility] [place] [address] Canteen Attendant: Zion Sweet MD GFR/1.73 sq M.predicted among non-blacks MDRD (S/P/Bld) [Vol rate/Area] mL/min/{1.73_m2} Normal >60 [facility] Comment on above: Result Comment: These results are not intended for use in patients <18 years of age. eGFR results are calculated without a race factor using the 2020 CKD-EPI equation. Careful clinical correlation is recommended, particularly when comparing to results calculated using previous equations. The CKD-EPI equation is less accurate in patients with extremes of muscle mass, extra-renal metabolism of creatine, excessive creatine ingestion, or following therapy that affects renal tubular secretion. Performed By: #### B MP, CBC #### [facility] [address] [facility] [place] [address] Canteen Attendant: Zion Sweet MD Glucose [Mass/Vol] 99 mg/dL Normal 70-99 [facility] Comment on above: Performed By: #### B MP, CBC #### [facility] [address] [place] [address] Canteen Attendant: Zion Sweet MD Potassium [Moles/Vol] 4.1 mmol/L Normal 3.7-5.3 [facility] Comment on above: Performed By: #### B MP, CBC #### [facility] [address] [place] [address] Canteen Attendant: Zion Sweet MD Sodium [Moles/Vol] 133 mmol/L Low 135-144 [facility] Comment on above: Performed By: #### B MP, CBC #### [facility] [address] [place] [address] Canteen Attendant: Zion Sweet MD Urea nitrogen [Mass/Vol] 8 mg/dL Normal 6-20 [facility] Comment on above: Performed By: #### B MP, CBC #### [facility] [address] [place] [address] Canteen Attendant: Zion Sweet MD CBCon 08-24-2023 Erythrocyte distribution width (RBC) [Ratio] 15.0 % High 11.8-14.4 [facility] Comment on above: Performed By: #### B MP, CBC #### [facility] [address] [place] [address]. [place] [address] Canteen Attendant: Zion Sweet MD Hematocrit (Bld) [Volume fraction] 41.4 % Normal 36.3-47.1 [facility] Comment on above: Performed By: #### B MP, CBC #### [facility] [address] [facility] [place] [address] Canteen Attendant: Zion Sweet MD Hemoglobin (Bld) [Mass/Vol] 13.7 g/dL Normal 11.9-15.1 [facility] Comment on above: Performed By: #### B MP, CBC #### [facility] [address] [facility] [place] [address] Canteen Attendant: Zion Sweet MD MCH (RBC) [Entitic mass] 30.8 pg Normal 25.2-33.5 [facility] Comment on above: Performed By: #### B MP, CBC #### [facility] [address] [place] [address]. [place] [address] Canteen Attendant: Zion Sweet MD MCHC (RBC) [Mass/Vol] 33.1 g/dL Normal 28.4-34.8 [facility] Comment on above: Performed By: #### B MP, CBC #### [facility] [facility] [place] [address] Canteen Attendant: Zion Sweet MD MCV (RBC) [Entitic vol] 93.0 fL Normal 82.6-102.9 [facility] Comment on above: Performed By: #### B MP, CBC #### [facility] [facility] [place] [address] Canteen Attendant: Zion Sweet MD NRBC Automated 0.0 per 100 WBC Normal 0.0 [facility] Comment on above: Performed By: #### B MP, CBC #### [facility] [facility] [place] [address] Canteen Attendant: Zion Sweet MD Platelet mean volume (Bld) [Entitic vol] 8.9 fL Normal 8.1-13.5 [facility] Comment on above: Performed By: #### B MP, CBC #### [facility] [address] [facility] [place] [address] Canteen Attendant: Zion Sweet MD Platelets (Bld) [#/Vol] 369 10*3/uL Normal 138-453 [facility] Comment on above: Performed By: #### B MP, CBC #### [facility] [address] [facility] [place] [address] Canteen Attendant: Zion Sweet MD RBC (Bld) [#/Vol] 4.45 10*6/uL Normal 3.95-5.11 [facility] Comment on above: Performed By: #### Nigel MP, CBC #### [facility] [address] [facility] [place] [address] Canteen Attendant: Zion Sweet MD WBC (Bld) [#/Vol] 6.2 10*3/uL Normal 3.5-11.3 [facility] Comment on above: Performed By: #### B MP, CBC #### [facility] [facility] [place] [address] Canteen Attendant: Zion Sweet MD CT CERVICAL SPINE W CONTRAST on 07-19-2023 CT CERVICAL SPINE W CONTRAST EXAMINATION: CT OF THE CERVICAL SPINE WITH INTRATHECAL CONTRAST 07/18/2023 1:38 pm: TECHNIQUE: CT of the cervical spine was performed after the administration of intrathecal contrast with multiplanar reconstructed images provided for interpretation. Dose modulation, iterative reconstruction, and/or weight based adjustment of the mA/kV was utilized to reduce the radiation dose to as low as reasonably achievable. COMPARISON: None. HISTORY: ORDERING SYSTEM PROVIDED HISTORY: Cervical spinal stenosis TECHNOLOGIST PROVIDED HISTORY: STAT Creatinine as needed:->Yes FINDINGS: Evaluation is limited by artifact in the patient's cervical spinal fixation hardware. BONES/ALIGNMENT: There is no acute fracture or suspect osseous lesion. The patient is status post prior C3 and C4 laminectomies, posterior C3-C5 metallic and osseous fusion, and anterior discectomies and fusion from C4 through C6. No evidence of hardware failure or loosening. Normal alignment. Flowing anterior osteophytes compatible with diffuse idiopathic skeletal hyperostosis. SOFT TISSUES: Paraspinal soft tissues are unremarkable within limits of hardware artifact. C2-C3: Disc height maintained. No significant bony neural foraminal or spinal canal stenosis. C3-C4: Disc height maintained. Prior laminectomies. Mild bilateral neural foraminal narrowing secondary to uncovertebral and facet hypertrophy. No spinal canal stenosis within limits of hardware artifact. C4-C5: Prior anterior fusion. Mild bilateral neural foraminal narrowing secondary to uncovertebral and facet hypertrophy. No spinal canal stenosis within limits of hardware artifact. C5-C6: Prior anterior fusion. Mild left neural foraminal narrowing secondary facet hypertrophy. No right neural foraminal. No spinal canal stenosis within limits of hardware artifact. C6-C7: Disc height maintained. Mild bilateral neural foraminal narrowing secondary to facet hypertrophy. No spinal canal stenosis within limits of hardware artifact. C7-T1: Mild disc height loss with intradiscal vacuum phenomenon. Severe left and moderate right neural foraminal narrowing secondary to uncovertebral and facet hypertrophy. Mild spinal canal stenosis secondary to posterior disc osteophyte complex. IMPRESSION: 1. Suboptimal evaluation due to artifact from the patient's cervical spinal fixation hardware. 2. Prior anterior and posterior fusion and C3 and C4 laminectomies as above. No evidence of hardware failure or loosening. 3. Mild C7-T1 spinal canal stenosis. 4. Multilevel neural foraminal narrowing as detailed above and greatest involving the left C8 neural foramen where it is severe. Interpreted by: Erick Urrutia MD Signed by: Erick Urrutia MD 07/19/23 Final result Normal [facility] CT LUMBAR SPINE W CONTRASTon 07-19-2023 CT LUMBAR SPINE W CONTRAST EXAMINATION: CT OF THE LUMBAR SPINE WITH INTRATHECAL CONTRAST 07/18/2023 1:38 pm: TECHNIQUE: CT of the lumbar spine was performed after the administration of intrathecal contrast with multiplanar reconstructed images provided for interpretation. Dose modulation, iterative reconstruction, and/or weight based adjustment of the mA/kV was utilized to reduce the radiation dose to as low as reasonably achievable. COMPARISON: None. HISTORY: ORDERING SYSTEM PROVIDED HISTORY: Spinal stenosis of lumbar region with neurogenic claudication TECHNOLOGIST PROVIDED HISTORY: STAT Creatinine as needed:->Yes FINDINGS: BONES/ALIGNMENT: No acute fracture. Vertebral heights maintained. Changes of prior L3 through L5 laminectomies and anterior and posterior L3-L5 osseous fusion and intact without evidence of loosening. Straightening of the lumbar lordosis and mild lumbar dextroscoliosis. No spondylolisthesis. SOFT TISSUES: No paraspinal fluid collection or mass. Mild calcific atherosclerosis. L1-L2: Disc height maintained no neural foraminal or spinal canal stenosis. L2-L3: Severe disc height loss with intradiscal vacuum. Moderate mild right neural foraminal secondary to disc bulge. Severe canal stenosis secondary to disc bulge and moderate facet and ligamentum flavum hypertrophy with effacement of the CSF space and crowding of cauda equina nerve roots. Superimposed left posterior paracentral disc extrusion extends 2 cm caudally along the dorsal aspect of the L3 vertebral body compressing the traversing left L3 nerve root. L3-L4: Prior anterior fusion. No neural foraminal or spinal canal stenosis. L4-L5: Prior anterior fusion. No neural foraminal or spinal canal stenosis. L5-S1: Disc height maintained. No neural foraminal narrowing or spinal canal stenosis. IMPRESSION: 1. Postsurgical changes from L3 through L5. No significant spinal canal stenosis or neural foraminal narrowing from L3-4 through L5-S1. 2. Severe adjacent segment disease at L2-3 with severe spinal canal stenosis secondary to disc bulge and facet and ligamentum flavum hypertrophy. Superimposed left posterior paracentral disc extrusion extends along the dorsal aspect of the L3 vertebral body severely narrowing the left lateral recess and compressing the traversing left L3 nerve root. Interpreted by: Erick Urrutia MD Signed by: Erick Urrutai MD 07/19/23 Final result Normal [facility] IR MYELOGRAM 2 OR MORE [facility] 07-18-2023 IR MYELOGRAM 2 OR MORE [facility] EXAMINATION: FLUOROSCOPIC LUMBAR AND CERVICAL MYELOGRAM 07/18/2023: HISTORY: ORDERING SYSTEM PROVIDED HISTORY: Cervical spinal stenosis TECHNOLOGIST PROVIDED HISTORY: lumbar AND cervical FLUOROSCOPY DOSE AND TYPE: Fluoroscopy time-3.2 minutes Radiation Exposure Index: DAP cGy*cm2, 451 PROCEDURE: SPECIFICATION MANAGER: Erick Mcleod MD Informed consent was obtained after the risks and benefits of the procedure were discussed with the patient and all questions were answered fully. Butternut protocol was observed and a standard timeout was performed. The patient was positioned prone and the back was prepped and draped in the normal sterile fashion. 1% lidocaine was used for local anesthesia. The subarachnoid space was accessed with a 22-gauge 3.5 spinal needle at the L2/L3 level. Free flow of clear CSF was noted. Approximately 18 ml of Isovue-M 200 (no 300 available) was injected into the intrathecal space under fluoroscopic visualization. The stylet was reinserted, spinal needle was removed and brief pressure was applied at the puncture site. The patient was placed into the reversed Trendelenburg position, and contrast manipulated into the cervical region. There were no immediate complications and the patient tolerated the procedure well. CT to follow. IMPRESSION: Successful fluoroscopic lumbar and cervical myelogram, pre CT myelography. Interpreted by: Erick Mcleod MD Rabin, Andrew M, MD Signed by: Erick Mcleod MD 07/18/23 Final result Normal [facility] PTon 07-18-2023 INR Coag (PPP) [Relative time] 1.0 {INR} Normal [facility] Comment on above: Result Comment: Therapeutic Range: Moderate Anticoagulant Intensity: INR = 2.0-3.0 High Anticoagulant Intensity: INR = 2.5-3.5 Performed By: #### P LT, PT #### [address] [address] Canteen Attendant: Panchito Bishop MD PT Coag (PPP) [Time] 12.5 s Normal 11.7-14.9 [facility] Comment on above: Performed By: #### P LT, PT #### [address] [address] Canteen Attendant: Panchito Bishpo MD Platelet Counton 07-18-2023 Platelets (Bld) [#/Vol] 355 10*3/uL Normal 138-453 [facility] Comment on above: Performed By: #### P LT, PT #### [address] [place] [address] Canteen Attendant: Panchito Bishop MD MR cervical spine wo conon 1 08-23-2022 MR cervical spine wo con [facility] [place] [address] [place] [id number] MRI Report Signed Patient: Macie Cloud MR#: [id number] : 1975 Acct:[id number] Age/Sex: 47 / F ADM Date: 06/23/23 [facility] Attending Dr: Gail SCHMIDT Copies to: ROXANA Palmer Ordering Provider: ROXANA Palmer Date of Service: 06/23/23 MR/MR cervical spine wo con: M54.12,R26.81,R29.898 MR cervical spine wo con 06/23/2023 1:18 PM SIGNS AND SYMPTOMS: Bilateral hand numbness and weakness, neck pain PROTOCOL: Multiplanar multisequence MR images of the cervical spine were obtained without IV contrast. COMPARISON: 10/28/2022 FINDINGS: The bones of the cervical spine are in anatomic alignment. There is preservation of vertebral body heights. There is anterior osteophyte formation from C4 through C6 with intervertebral fusion. There is posterior decompression at C3-C4. There is posterior fusion hardware from C2 through C5. There is mild/moderate disc height loss at C6-C7 and C7-T1. There is Modic type I endplate edema at C6-C7 and C7-T1. There is chronic myelomalacia within the cord at the C6-C7 level. No epidural or paraspinous fluid collection is appreciated. The visualized paraspinous soft tissues are within normal limits. The prevertebral soft tissues are within normal limits. At C2-C3: There is a normal disc, central canal, and neural foramen. At C3-C4: There is facet hypertrophy bilaterally contributing to [id number] bilateral neural foraminal narrowing without spinal canal stenosis. There is posterior decompression. At C4-C5: There is facet and uncovertebral degenerative change contributing to moderate bilateral neural foraminal narrowing. No spinal canal narrowing. There is posterior decompression. At C5-C6: Facet and uncovertebral degenerative change contributes to mild to moderate right neural foraminal narrowing without significant spinal canal stenosis. At C6-C7: There is a broad-based disc bulge with facet and uncovertebral degenerative change and bilateral facet effusions. There is moderate to severe spinal canal stenosis which is worse when compared to the prior exam. There is moderate bilateral neural foraminal narrowing. At C7-T1: There is a broad-based disc bulge with a central disc extrusion and cranial migration. There is moderate spinal canal stenosis with severe neural foraminal narrowing bilaterally, left greater than right. MR/MR cervical spine wo con IMPRESSION: There is chronic myelomalacia within the cord at the C6-C7 level. Worsening degenerative changes are noted at C6-C7 and C7-T1, as above. Unchanged fusion hardware bilaterally. Impression dictated by: Jaswant Magaña M.D.06/23/2023 5:17 PM Dictation Location: [place] [address] Transcribed By: [facility] 06/23/231716 Dictated By: Jaswant Magaña II, MD 06/23/231705 Signed By: 06/23/231716 [facility] MR lumbar spine wo conon MR lumbar spine wo con [facility] [place] [address] [place] [address] MRI Report Signed Patient: Macie Cloud MR#: [id number] : 1975 Acct:[id number] Age/Sex: 47 / F ADM Date: 06/23/23 [facility] Room: Type: [facility] Attending Dr: Gail SCHMIDT Copies to: ROXANA Palmer Ordering Provider: ROXANA Palmer Date of Service: 06/23/23 MR/MR lumbar spine wo con: M54.16,R26.81,R29.898 MR lumbar spine wo con 06/23/2023 1:18 PM SIGNS AND SYMPTOMS: Low back pain radiating down left leg, weakness PROTOCOL: Multiplanar multisequence MR images of the lumbar spine were obtained without IV contrast. COMPARISON: None. FINDINGS: The bones of the lumbar spine are in anatomic alignment. There is preservation of vertebral body heights. There is severe disc height loss with Modic type I endplate edema at L2-L3. This is new compared to the prior exam. Edema extends into the spinous process at L2. There is posterior decompression from L3 through L5. The conus terminates at the L1-L2 intervertebral disc level. No epidural or paraspinous fluid collection is appreciated. At T12-L1: There is a normal disc, central canal, and neural foramen. At L1-L2: There is a normal disc, central canal, and neural foramen. At L2-L3: There is a circumferential disc bulge with a central disc extrusion extending to the left of midline into the subarticular zone. There is caudal migration. There is severe spinal canal stenosis which is new when compared to the prior exam with redundancy of the nerve roots of the cauda equina above this level. This is consistent with mass effect on the cauda equina. At L3-L4: There is intervertebral fusion without significant stenosis. At L4-L5: There is there is a broad-based disc bulge with a more focal right foraminal disc protrusion and endplate osteophyte formation. There is no significant spinal canal narrowing. There is mild right neural foraminal narrowing. At L5-S1: There is facet hypertrophy. There is mild right neural foraminal narrowing without significant spinal canal stenosis. MR/MR lumbar spine wo con IMPRESSION: At L2-L3: There is a circumferential disc bulge with a central disc extrusion extending to the left of midline into the subarticular zone. There is caudal migration. There is severe spinal canal stenosis which is new when compared to the prior exam with redundancy of the nerve roots of the cauda equina above this level. This is consistent with mass effect on the cauda equina. At L4-L5: There is there is a broad-based disc bulge with a more focal right foraminal disc protrusion and endplate osteophyte formation. There is no significant spinal canal narrowing. There is mild right neural foraminal narrowing. There is posterior decompression from L3 through L5. There is severe disc height loss with Modic type I endplate edema at L2-L3. This is new compared to the prior exam. Edema extends into the spinous process at L2. Impression dictated by: Jaswant Magaña M.D.06/23/2023 5:27 PM Dictation Location: [facility]--12 Transcribed By: SALVATORE 06/23/23 172 Dictated By: Jaswant Magaña II, MD 06/23/23 171 Signed By: 06/23/23 1727 [facility] Outside Records Officeon Outside Records Office [id number]#1 .00TIFF Normal [facility] Referrals Officeon 3 Referrals Office [id number]#1 .00TIFF Normal [facility] Outside Records Officeon Outside Records Office [id number]# 1.00CD:127 Normal [facility] Radiology Outside Office [employer] yon 04-13-2023 Radiology Outside Office Copy [id number]# 1.00CD:127 Normal [facility] Referrals Officeon 3 Referrals Office [id number] #1.00CD:127 Normal [facility] Basic Metabolic Panelon 03-16 Anion gap [Moles/Vol] 12.3 mmol/L Normal 6.0-15.0 [facility] Comment on above: Performed By: #### T 4F, TSH3, CBC, BMP ####[facility] [id number] [place] [address] [facility] Calcium [Mass/Vol] 10.2 mg/dL Normal 8.6-10.3 [facility] Comment on above: Performed By: #### T 4F, TSH3, CBC, BMP ####[facility] [id number] [place] [address] [facility] Chloride [Moles/Vol] 99 mmol/L Normal 98-107 [facility] Comment on above: Performed By: #### T 4F, TSH3, CBC, BMP ####[facility] [id number] [place] [address] [facility] CO2 [Moles/Vol] 31.4 mmol/L High 21.0-31.0 [facility] Comment on above: Performed By: #### T 4F, TSH3, CBC, BMP ####[place] [id number] [place] [id number] [facility] Creatinine [Mass/Vol] 0.64 mg/dL Normal 0.60-1.20 [facility] Comment on above: Performed By: #### T 4F, TSH3, CBC, BMP ####[place] [id number] [place] GFR/1.73 sq M.predicted MDRD (S/P/Bld) [Vol rate/Area] mL/min/{1.73_m2} Normal [facility] Comment on above: Performed By: #### T 4F, TSH3, CBC, BMP ####[address] Glucose [Mass/Vol] 103 mg/dL High 70-100 [facility] Comment on above: Result Comment: [facility] Glucose Reference Range is dependent on time and content of last meal. Glucose of more than 200 mg/dL in a nonstressed, ambulatory subject supports the diagnosis of Diabetes Mellitus. ADA recommended reference range Performed By: #### T 4F, TSH3, CBC, BMP ####[place] [id number] [facility] Potassium [Moles/Vol] 3.7 mmol/L Normal 3.5-5.1 [facility] Comment on above: Performed By: #### T 4F, TSH3, CBC, BMP ####[place] [id number] [facility] Sodium [Moles/Vol] 139 mmol/L Normal 136-145 [facility] Comment on above: Performed By: #### T 4F, TSH3, CBC, BMP ####[place] [address] [place] [id number] [facility] Urea nitrogen [Mass/Vol] 7 mg/dL Normal 7-25 [facility] Comment on above: Performed By: #### T 4F, TSH3, CBC, BMP ####[facility] [id number] [place] [address] [facility] Basophils Auto (Bld) [#/Vol] Ordered By: Eloy Mcdaniel on 04-12-2023 Basophils (Bld) [#/Vol] 0.0 10*3/uL 0.0-0.2 [facility] Basophils/100 WBC Auto (Bld) Ordered By: Eloy Mcdaniel on 04-12-2023 Basophils/100 WBC (Bld) 0.4 % . F [facility] Calcium [Mass/volume] in Ser um or PlasmaOrdered By: Eloy Mcdaniel on 04-12-2023 Calcium [Mass/Vol] 10.2 mg/dL 8.6-10.3 [facility] Carbon dioxide, total [Moles /volume] in Serum or PlasmaOrdered By: Eloy Mcdaniel on 04-12-2023 CO2 [Moles/Vol] 31.4 mmol/L 21.0-31.0 [facility] Chloride [Moles/volume] in S jayshree or PlasmaOrdered By: Eloy Mcdaniel on 04-12-2023 Chloride [Moles/Vol] 99 mmol/L 98-107 [facility] Complete Blood Count Auto Di ffon 04-12-2023 Basophils (Bld) [#/Vol] 0.0 10*3/uL Normal 0.0-0.2 [facility] Comment on above: Result Comment: PERF ORMED BY: [facility] [address] [place] [id number] PATHOLOGIST SHADING PAINTER BONY DAVIS M.D. Performed By: #### T 4F, TSH3, CBC, BMP ####[facility] [place] [id number] [facility] Basophils/100 WBC (Bld) 0.4 % Normal . F [facility] Comment on above: Performed By: #### T 4F, TSH3, CBC, BMP ####[facility] [id number] [place] [id number] [place] Eosinophils (Bld) [#/Vol] 0.0 10*3/uL Normal 0.0-0.45 [facility] Comment on above: Performed By: #### T 4F, TSH3, CBC, BMP ####[address] Eosinophils/100 WBC (Bld) 0.1 % Normal . [facility] Comment on above: Performed By: #### T 4F, TSH3, CBC, BMP ####[address] Erythrocyte distribution width (RBC) [Ratio] 16.8 % High 11.9-15.3 [facility] Comment on above: Performed By: #### T 4F, TSH3, CBC, BMP ####[address] Hematocrit (Bld) [Volume fraction] 40.3 % Normal 34.0-46.4 [facility] Comment on above: Performed By: #### T 4F, TSH3, CBC, BMP ####[address] Hemoglobin (Bld) [Mass/Vol] 13.3 g/dL Normal 11.8-15.4 [facility] Comment on above: Performed By: #### T 4F, TSH3, CBC, BMP ####[address] Lymphocytes (Bld) [#/Vol] 3.1 10*3/uL Normal 1.00-4.8 [facility] Comment on above: Performed By: #### T 4F, TSH3, CBC, BMP ####[address] Lymphocytes/100 WBC (Bld) 30.1 % Normal . [facility] Comment on above: Performed By: #### T 4F, TSH3, CBC, BMP ####[address] MCH (RBC) [Entitic mass] 29.6 pg Normal 24.7-34.3 [facility] Comment on above: Performed By: #### T 4F, TSH3, CBC, BMP ####[address] MCV (RBC) [Entitic vol] 89.9 fL Normal 80-100 F [facility] Comment on above: Performed By: #### T 4F, TSH3, CBC, BMP ####[address] Mean Corpuscular HGB Conc 32.9 g/dL Normal 32.0-35.0 [facility] Comment on above: Performed By: #### T 4F, TSH3, CBC, BMP ####[address] Monocytes (Bld) [#/Vol] 0.8 10*3/uL Normal 0.0-0.8 [facility] Comment on above: Performed By: #### T 4F, TSH3, CBC, BMP ####[address] Monocytes/100 WBC (Bld) 7.6 % Normal . F [facility] Comment on above: Performed By: #### T 4F, TSH3, CBC, BMP ####[address] Neutrophils (Bld) [#/Vol] 6.4 10*3/uL Normal 1.8-7.7 [facility] Comment on above: Performed By: #### T 4F, TSH3, CBC, BMP ####[address] Neutrophils/100 WBC (Bld) 61.8 % Normal . [facility] Comment on above: Performed By: #### T 4F, TSH3, CBC, BMP ####[address] NRBC% 0.1 /100{WBC} Normal 0-0.5 [facility] Comment on above: Performed By: #### T 4F, TSH3, CBC, BMP ####[address] Platelet mean volume (Bld) [Entitic vol] 8.2 fL Normal 6.3-10.7 [facility] Comment on above: Performed By: #### T 4F, TSH3, CBC, BMP ####[place] [address] Platelets (Bld) [#/Vol] 433 10*3/uL Normal 150-450 [facility] Comment on above: Performed By: #### T 4F, TSH3, CBC, BMP ####[place] [address] RBC (Bld) [#/Vol] 4.49 10*6/uL Normal 3.60-5.00 [facility] Comment on above: Performed By: #### T 4F, TSH3, CBC, BMP ####[facility] WBC (Bld) [#/Vol] 10.3 10*3/uL Normal 3.8-11.6 [facility] Comment on above: Performed By: #### T 4F, TSH3, CBC, BMP ####[place] [address] Consent for Treatmenton 03-16 Consent for Treatment [id number]# 1.00CD:127 Normal [facility] Consultation Noteon 04-12-20 23 Consultation Note Patient: MACIE CLOUD Age: 47 years Sex: Female : 1975 Associated Diagnoses: None Author: Whit BONILLA, Star Perez Basic Information Accompanied by: No one. Source of history: Self. Referral source: SOBEIDA WHITNEY MD History limitation: None. Chief Complaint 04/12/2023 13:27 EDT Back Pain 47-year-old female with a history of substance use disorder as well as cervical and lumbar spine surgeries. Her chief complaints are of neck pain that radiates to the left hand as well as low back pain that radiates to both legs. She has been in pain management in the past. She is on Suboxone. Has had epidural steroid injections without relief. Pain is rated as a 10 out of 10 on the visual analog scale. ASH is 78. The patient was referred by Dr. Whitney for evaluation. She has had extensive care including physical therapy without relief, NSAIDs without benefit as well as the aforementioned injections with no benefit. The patient states that she is depressed because of her pain. She was recently restarted on her depression medication by her primary care physician. The patient has not seen psychiatry anytime recently. Patient states that she had taken herself off her depression medicine in the past. Has tried numerous medications including all of the neuroleptic medications without relief. Was a patient of Dr. Power in the past on high-dose opioids. Review of Systems Complete review of systems obtained and reviewed. Form scanned. Pertinent findings are noted in the HPI. Health Status Allergies: Allergic Reactions (All) No Known Allergies No Known Medication Allergies Current medications: Home Medications (11) Active albuterol CFC free 90 mcg/inh inhalation aerosol amitriptyline 100 mg, Oral, Once a day (at bedtime) buprenorphine-naloxon e 8 mg-2 mg sublingual tablet 1.5 ta, SubLingual, Daily Dodex 1000 mcg/mL injectable solution 1,000 mcg, IntraMuscular, qMonth gabapentin 800 mg, Oral, TID ibuprofen 600 mg, Oral, TID lisinopril 20 mg Tab 20 mg = 1 tab(s), Oral, Daily omeprazole 20 mg Cap-DR 20 mg = 1 cap(s), Oral, Daily ropinirole 1 mg, Oral, Daily Vraylar 4.5 mg oral capsule Zanaflex 4 mg oral capsule 4 mg, Oral, Bedtime Problem list: All Problems Anxiety / SNOMED CT 39021364 / Confirmed Chronic neck pain with history of cervical spinal surgery / SNOMED CT 8386293593 / Confirmed COPD (chronic obstructive pulmonary disease) / SNOMED CT 76889399 / Confirmed Depression / SNOMED CT 44481162 / Confirmed Heartburn / SNOMED CT 60504502 / Confirmed Smoker / SNOMED CT 976838137 / Confirmed Added secondary to documentation in Social History. Thoracic outlet syndrome to both arms / SNOMED CT 219956821 / Confirmed Histories Past Medical History: No active or resolved past medical history items have been selected or recorded. Family History: Clot Mother () Procedure history: Fusion of lumbar spine ([id number]) on 01/19/2021 at 45 Years. Cervical spinal fusion (789318416) on 10/30/2019 at 44 Years. Appendectomy (164322384). History of cervical spine surgery (3119663457). Comments: 07/31/2019 14:14 SISSY Cadet RNMary Kate C4-6 fusion section ([id number]). H/O: hysterectomy (616988752). Ankle (0055168). Comments: 07/31/2019 14:16 SISSY Cadet RN Mary Kate Angelina Left ankle Fusion of lumbar spine (296449554). Comments: 07/31/2019 14:17 SISSY Cadet RN Mary Kate Angelina L4-5 fusion and replacement H/O: tubal ligation (145747752). Social History Social & Psychosocial Habits Alcohol 10/26/2019 Use: Current Type: Wine Frequency: 1-2 times per month 10/26/2019 Risk Assessment: Medium Risk Substance Abuse 10/26/2019 Use: Current Type: Marijuana Frequency: 1-2 times per week Tobacco 07/31/2019 Risk Assessment: High Risk 07/31/2019 Tobacco Use: 10 or more cigarettes (10/26/2019 Type: Cigarettes Tobacco use per day: 2 . Physical Examination Vital Signs (last 24 hrs) Last Charted Heart Rate Peripheral 74 bpm (APR 12 13:27) SBP H 149mmHg (APR 12:27) DBP 87 mmHg (APR 12:27) Weight 54.7 kg (APR 12:27) BMI 18.93 (APR 12:27) General: Tearful. Alert and oriented x3. Thin. Musculoskeletal: Healed scars from previous surgeries. Diffusely tender in the lumbar paraspinal region. Prominent spinous processes in the upper lumbar region that are tender to palpation. No skin breakdown. Neuro: Patient has intact strength distal upper and lower extremities. Normal gait. Review / Management I was able to review numerous imaging studies including an MRI of the lumbar spine. It does demonstrate previous L3-5 fusion patient has L2-3 moderate stenosis. MRI of the cervical spine From 10/28/2022 demonstrates peripheral enhancing complex fluid density region in the posterior left paraspinal region at C6-7 level. Mild postsurgical epidural enhancement at C5-7. No abnormal enhancement of the spinal cord. Impre (more content not included)... Normal [facility] Comment on above: Result Comment: Elec tronically Signed By: Whit BONILLA, Star Perez\.br\Date and Time Signed: 04/12/23 14:34 EDT Creatinine [Mass/volume] in Serum or PlasmaOrdered By: Eloy Mcdaniel on 04-12-2023 Creatinine [Mass/Vol] 0.64 mg/dL 0.60-1.20 [facility] Eosinophils Auto (Bld) [#/Vo l]Ordered By: Eloy Mcdaniel on 04-12-2023 Eosinophils (Bld) [#/Vol] 0.0 10*3/uL 0.0-0.45 [facility] Eosinophils/100 WBC Auto (Bl d)Ordered By: Eloy Mcdaniel on 04-12-2023 Eosinophils/100 WBC (Bld) 0.1 % . [facility] Erythrocyte distribution wid th Auto (RBC) [Ratio]Ordered By: Eloy Mcdaniel on 04-12-2023 Erythrocyte distribution width (RBC) [Ratio] 16.8 % 11.9-15.3 [facility] Free T4 (Free Thyroxine)on 0 04-12-2023 Free T4 [Mass/Vol] 0.79 ng/dL Normal 0.61-1.12 [facility] Comment on above: Performed By: #### T 4F, TSH3, CBC, BMP ####[facility] [id number] Glucose [Mass/volume] in Ser um or PlasmaOrdered By: Eloy Mcdaniel on 04-12-2023 Glucose [Mass/Vol] 103 mg/dL 70-100 [facility] Comment on above: ADA recommended refe rence rangeRandom Glucose Reference Range is dependent on time and content of last meal. Glucose of more than 200 mg/dL in a nonstressed, ambulatory subject supports the diagnosis of Diabetes Mellitus. HIPAA Forms Officeon 023 HIPAA Forms Office [id number] #1.00CD:127 Normal [facility] Hematocrit Auto (Bld) [Volum e fraction]Ordered By: Eloy Mcdaniel on 04-12-2023 Hematocrit (Bld) [Volume fraction] 40.3 % 34.0-46.4 [facility] Hemoglobin [Mass/volume] in BloodOrdered By: Eloy Mcdaniel on 04-12-2023 Hemoglobin (Bld) [Mass/Vol] 13.3 g/dL 11.8-15.4 [facility] Legal Correspondence Officeo n 04-12-2023 Legal Correspondence Office [id number] #1.00CD:127 Normal [facility] Legal Correspondence Office [id number] #1.00CD:127 Normal [facility] Leukocytes [#/volume] correc rajani for nucleated erythrocytes in Blood by Automated counOrdered By: Eloy Mcdaniel on 04-12-2023 WBC corrected for nucl RBC Auto (Bld) [#/Vol] 10.3 10*3/uL 3.8-11.6 [facility] Lymphocytes Auto (Bld) [#/Vo l]Ordered By: Eloy Mcdaniel on 04-12-2023 Lymphocytes (Bld) [#/Vol] 3.1 10*3/uL 1.00-4.8 [facility] Lymphocytes/100 WBC Auto (Bl d)Ordered By: Eloy Mcdaniel on 04-12-2023 Lymphocytes/100 WBC (Bld) 30.1 % . [facility] MCH Auto (RBC) [Entitic mass ]Ordered By: Eloy Mcdaniel on 04-12-2023 MCH (RBC) [Entitic mass] 29.6 pg 24.7-34.3 [facility] MCHC Auto (RBC) [Mass/Vol]Or dered By: Eloy Mcdaniel on 04-12-2023 MCHC (RBC) [Mass/Vol] 32.9 g/dL 32.0-35.0 [facility] MCV Auto (RBC) [Entitic vol] Ordered By: Eloy Mcdaniel on 04-12-2023 MCV (RBC) [Entitic vol] 89.9 fL 80-100 F [facility] Monocytes Auto (Bld) [#/Vol] Ordered By: Eloy Mcdaniel on 04-12-2023 Monocytes (Bld) [#/Vol] 0.8 10*3/uL 0.0-0.8 [facility] Monocytes/100 WBC Auto (Bld) Ordered By: Eloy Mcdaniel on 04-12-2023 Monocytes/100 WBC (Bld) 7.6 % . F [facility] Neutrophils Auto (Bld) [#/Vo l]Ordered By: Eloy Mcdaniel on 04-12-2023 Neutrophils (Bld) [#/Vol] 6.4 10*3/uL 1.8-7.7 [facility] Neutrophils/100 WBC Auto (Bl d)Ordered By: Eloy Mcdaniel on 04-12-2023 Neutrophils/100 WBC (Bld) 61.8 % . [facility] No Panel InformationOrdered By: Eloy Mcdaniel on 04-12-2023 Estimated GFR (CKD-EPI) > 60.0 mL/Min [facility] Creatinine Clearance (Chem N/A [facility] Nucleated erythrocytes [Pres ence] in Blood by Automated countOrdered By: Eloy Mcdaniel on 04-12-2023 Nucleated RBC Auto Ql (Bld) 0.1 /100{WBC} 0-0.5 [facility] Office/Clinic Note-Physician on 04-12-2023 Office/Clinic Note-Physician [id number] #1.00CD:127 Normal [facility] Patient Correspondenceon Patient Correspondence [id number] #1.00CD:127 Normal [facility] Patient Correspondence [id number] #1.00CD:127 Normal [facility] Patient Correspondence [id number] #1.00CD:127 Normal [facility] Patient Correspondence [id number] #1.00CD:127 Normal [facility] Patient Correspondence [id number] #1.00CD:127 Normal [facility] Patient History Officeon Patient History Office [id number] #1.00CD:127 Normal [facility] Platelet mean volume Auto (B ld) [Entitic vol]Ordered By: Eloy Mcdaniel on 04-12-2023 Platelet mean volume (Bld) [Entitic vol] 8.2 fL 6.3-10.7 [facility] Platelets Auto (Bld) [#/Vol] Ordered By: Eloy Mcdaniel on 04-12-2023 Platelets (Bld) [#/Vol] 433 10*3/uL 150-450 [facility] Potassium [Moles/volume] in Serum or PlasmaOrdered By: Eloy Mcdaniel on 04-12-2023 Potassium [Moles/Vol] 3.7 mmol/L 3.5-5.1 [facility] RBC Auto (Bld) [#/Vol]Ordere d By: Eloy Mcdaniel on 04-12-2023 RBC (Bld) [#/Vol] 4.49 10*6/uL 3.60-5.00 [facility] Radiology Outside Office [employer] yon 04-12-2023 Radiology Outside Office Copy [id number] #1.00CD:127 Normal [facility] Radiology Outside Office Copy [id number] #1.00CD:127 Normal [facility] Radiology Outside Office Copy [id number] #1.00CD:127 Normal [facility] Radiology Outside Office Copy [id number] #1.00CD:127 Normal [facility] Radiology Outside Office Copy [id number] #1.00CD:127 Normal [facility] Radiology Outside Office Copy [id number] #1.00CD:127 Normal [facility] Serum or plasma anion gap de terminationOrdered By: Eloy Mcdaniel on 04-12-2023 Anion gap [Moles/Vol] 12.3 mmol/L 6.0-15.0 [facility] Sodium [Moles/volume] in Ser um or PlasmaOrdered By: Eloy Mcdaniel on 04-12-2023 Sodium [Moles/Vol] 139 mmol/L 136-145 [facility] Thyroid Stimulating Hormoneo n 04-12-2023 TSH Qn 1.21 m[IU]/L Normal 0.45-5.33 [facility] Comment on above: Result Comment: PERF ORMED BY: [facility] [address] [place] [address] PATHOLOGIST SHADING PAINTER BONY DAVIS M.D. Performed By: #### T 4F, TSH3, CBC, BMP ####[facility] [address] [place] [address] [facility] Thyrotropin [Units/volume] i n Serum or PlasmaOrdered By: Eloy Mcdaniel on 04-12-2023 TSH Qn 1.21 m[IU]/L 0.45-5.33 [facility] Thyroxine (T4) free [Mass/vo lume] in Serum or PlasmaOrdered By: Eloy Mcdaniel on 04-12-2023 Free T4 [Mass/Vol] 0.79 ng/dL 0.61-1.12 [facility] Urea nitrogen [Mass/volume] in Serum or PlasmaOrdered By: Eloy Mcdaniel on 04-12-2023 Urea nitrogen [Mass/Vol] 7 mg/dL 7-25 [facility] WBC Auto (Bld) [#/Vol]Ordere d By: Eloy Mcdaniel on 04-12-2023 WBC (Bld) [#/Vol] 10.3 10*3/uL 3.8-11.6 [facility] Outside Records Officeon Outside Records Office [id number]# 1.00CD:127 Normal [facility] Radiology Outside Office [employer] yon 03-22-2023 Radiology Outside Office Copy [id number]# 1.00CD:127 Normal [facility] Referrals Officeon Referrals Office [id number]# 1.00CD:127 Normal [facility] CNPNon 11-09-2022 CNPN Telephone (WIQ) MACIE CLOUD ([id number]) 1975 F Date Time Provider Department 11/09/22 CATHI DIA During your visit today, we recorded the following information about you: [facility]i [facility]Critical [facility] 11/09/2022 9:26 AM Signed Smoking Cessation Navigation Outcome of contact: Left Message Comments: A voicemail has been left for this patient regarding Tobacco Cessation support options. If this patient has any further questions they can email us at or call us at [phone]. [employer] Instructor/Smoking Cessation Navigator: Cathi MartínezCritical access hospital Allergies As of Date: 11/09/2022 (No Known Allergies) Date Reviewed: 09/13/2022 Reviewed by: Tiarra Prince MA - Fully Assessed Reason for Visit: Smoking Cessation [1387] Prescriptions as of 11/09/2022 - Mesalamine (LIALDA) 1.2 gram EC tablet Take 1,200 mg by mouth four times daily. - tiZANidine (ZANAFLEX) 4 mg tablet take 2 to 3 tablets by mouth at bedtime if needed - cyanocobalamin (VITAMIN B-12) 1,000 mcg/mL Inject 1 mL subcutaneously once every month. - omeprazole (PRILOSEC) 20 mg capsule 40 mg. - rOPINIRole (REQUIP) 1 mg tablet Take 1 mg by mouth. - gabapentin (NEURONTIN) 300 mg capsule Take 300 mg by mouth three times daily. - lisinopril-hydroCHLOR Othiazide (PRINZIDE,ZESTORETIC) 10-12.5 mg per tablet Take 1 tablet by mouth once daily. - amitriptyline (ELAVIL) 75 mg tablet Take by mouth daily at bedtime. Problem List As Of Date 11/09/2022 Noted Resolved COPD (chronic obstructive pulmonary disease) (H*06/30/2017 Current smoker [F17.200] 06/30/2017 Neck pain [M54.2] 06/30/2017 S/P cervical spinal fusion [Z98.1] Anxiety and depression [F41.9, F32.A] Iron deficiency anemia [D50.9] 11/11/2020 B12 deficiency [E53.8] 11/11/2020 Encounter Status:Closed by CATHI DIA on 11/09/22 Normal [facility] Alanine aminotransferase [En zymatic activity/volume] in Serum or PlasmaOrdered By: Hussain Cristobal on 10-28-2022 ALT [Catalytic activity/Vol] 21 U/L 7-52 [facility] Albumin [Mass/volume] in Ser um or Plasma by Bromocresol green (BCG) dye binding methoOrdered By: Hussain Cristobal on 10-28-2022 Albumin BCG dye [Mass/Vol] 4.5 g/dL 3.5-5.7 [facility] Alkaline phosphatase [Enzyma tic activity/volume] in Serum or PlasmaOrdered By: Hussain Cristobal on 10-28-2022 ALP [Catalytic activity/Vol] 91 U/L 34-104 [facility] Aspartate aminotransferase [ Enzymatic activity/volume] in Serum or PlasmaOrdered By: Hussain Cristobal on 10-28-2022 AST [Catalytic activity/Vol] 26 U/L 13-39 [facility] Basophils Auto (Bld) [#/Vol] Ordered By: Hussain Cristobal on 10-28-2022 Basophils (Bld) [#/Vol] 0.0 10*3/uL 0.0-0.2 [facility] Basophils/100 WBC Auto (Bld) Ordered By: Hussain Cristobal on 10-28-2022 Basophils/100 WBC (Bld) 0.2 % . F [facility] Bilirubin.total [Mass/volume ] in Serum or PlasmaOrdered By: Hussain Cristobal on 10-28-2022 Bilirubin [Mass/Vol] 0.3 mg/dL 0.3-1.0 [facility] Calcium [Mass/volume] in Ser um or PlasmaOrdered By: Hussain Cristobal on 10-28-2022 Calcium [Mass/Vol] 9.8 mg/dL 8.6-10.3 [facility] Carbon dioxide, total [Moles /volume] in Serum or PlasmaOrdered By: Hussain Cristobal on 10-28-2022 CO2 [Moles/Vol] 28.9 mmol/L 21.0-31.0 [facility] Chloride [Moles/volume] in S jayshree or PlasmaOrdered By: Hussain Cristobal on 10-28-2022 Chloride [Moles/Vol] 97 mmol/L 98-107 [facility] Complete Blood Count Auto Di ffon 10-28-2022 Basophils (Bld) [#/Vol] 0.0 10*3/uL Normal 0.0-0.2 [facility] Comment on above: Result Comment: PERF ORMED BY: [facility] [address] [place] [id number] PATHOLOGIST SHADING PAINTER BONY DAVIS M.D. Performed By: #### C MP, CBC ####[facility] [id number] [place] [id number] [facility] Basophils/100 WBC (Bld) 0.2 % Normal . F [facility] Comment on above: Performed By: #### C MP, CBC ####[facility] [id number] [place] [id number] [place] [facility] Eosinophils (Bld) [#/Vol] 0.0 10*3/uL Normal 0.0-0.45 [facility] Comment on above: Performed By: #### C MP, CBC ####[place] [id number] [facility] Eosinophils/100 WBC (Bld) 0.0 % Normal . [facility] Comment on above: Performed By: #### C MP, CBC ####[place] [id number] [facility] Erythrocyte distribution width (RBC) [Ratio] 15.8 % High 11.9-15.3 [facility] Comment on above: Performed By: #### C MP, CBC ####[place] [id number] [facility] Hematocrit (Bld) [Volume fraction] 38.6 % Normal 34.0-46.4 [facility] Comment on above: Performed By: #### C MP, CBC ####[place] [id number] [facility] Hemoglobin (Bld) [Mass/Vol] 12.9 g/dL Normal 11.8-15.4 [facility] Comment on above: Performed By: #### C MP, CBC ####[place] [id number] [facility] Lymphocytes (Bld) [#/Vol] 1.3 10*3/uL Normal 1.00-4.8 [facility] Comment on above: Performed By: #### C MP, CBC ####[place] [id number] [facility] Lymphocytes/100 WBC (Bld) 10.0 % Normal . [facility] Comment on above: Performed By: #### C MP, CBC ####[place] [id number] [facility] MCH (RBC) [Entitic mass] 29.6 pg Normal 24.7-34.3 [facility] Comment on above: Performed By: #### C MP, CBC ####[place] [id number] [facility] MCV (RBC) [Entitic vol] 88.7 fL Normal 80-100 F [facility] Comment on above: Performed By: #### C MP, CBC ####[address] [address] [facility] Mean Corpuscular HGB Conc 33.4 g/dL Normal 32.0-35.0 [facility] Comment on above: Performed By: #### C MP, CBC ####[address] [address] [facility] Monocytes (Bld) [#/Vol] 0.2 10*3/uL Normal 0.0-0.8 [facility] Comment on above: Performed By: #### C MP, CBC ####[address] [address] [facility] Monocytes/100 WBC (Bld) 13.39 % Normal 0.00-20.00 [facility] Comment on above: Performed By: #### C MP, CBC ####[address] [address] [facility] Monocytes/100 WBC (Bld) 1.9 % Normal . F [facility] Comment on above: Performed By: #### C MP, CBC ####[address] [address] [facility] Neutrophils (Bld) [#/Vol] 11.8 10*3/uL High 1.8-7.7 [facility] Comment on above: Performed By: #### C MP, CBC ####[address] [address] [facility] Neutrophils/100 WBC (Bld) 87.9 % Normal . [facility] Comment on above: Performed By: #### C MP, CBC ####[address] [address] [facility] NRBC% 0.0 /100{WBC} Normal 0-0.5 [facility] Comment on above: Performed By: #### C MP, CBC ####[place] [id number] [facility] Platelet mean volume (Bld) [Entitic vol] 6.9 fL Normal 6.3-10.7 [facility] Comment on above: Performed By: #### C MP, CBC ####[facility] [id number] [place] [address] [facility] Platelets (Bld) [#/Vol] 528 10*3/uL High 150-450 [facility] Comment on above: Performed By: #### C MP, CBC ####[address] [address] [facility] RBC (Bld) [#/Vol] 4.36 10*6/uL Normal 3.60-5.00 [facility] Comment on above: Performed By: #### C MP, CBC ####[address] [address] [facility] WBC (Bld) [#/Vol] 13.4 10*3/uL High 3.8-11.6 [facility] Comment on above: Performed By: #### C MP, CBC ####[address] [address] [facility] Comprehensive Metabolic Pane ken 10-28-2022 Albumin [Mass/Vol] 4.5 g/dL Normal 3.5-5.7 [facility] Comment on above: Performed By: #### C MP, CBC ####[address] [address] [facility] Albumin/Globulin [Mass ratio] 1.3 {ratio} Normal [facility] Comment on above: Performed By: #### C MP, CBC ####[address] [address] [facility] ALP [Catalytic activity/Vol] 91 U/L Normal 34-104 [facility] Comment on above: Performed By: #### C MP, CBC ####[address] [address] [facility] ALT [Catalytic activity/Vol] 21 U/L Normal 7-52 [facility] Comment on above: Performed By: #### C MP, CBC ####[address] [address] [facility] Anion gap [Moles/Vol] 13.2 mmol/L Normal 6.0-15.0 [facility] Comment on above: Performed By: #### C MP, CBC ####[facility] [place] [address] [facility] AST [Catalytic activity/Vol] 26 U/L Normal 13-39 [facility] Comment on above: Performed By: #### C MP, CBC ####[facility] [id number] [place] [address] [facility] Bilirubin [Mass/Vol] 0.3 mg/dL Normal 0.3-1.0 [facility] Comment on above: Performed By: #### C MP, CBC ####[place] [address] [place] [address] [facility] Calcium [Mass/Vol] 9.8 mg/dL Normal 8.6-10.3 [facility] Comment on above: Performed By: #### C MP, CBC ####[place] [address] [place] [address] [facility] Chloride [Moles/Vol] 97 mmol/L Low 98-107 [facility] Comment on above: Performed By: #### C MP, CBC ####[place] [address] [place] [address] [facility] CO2 [Moles/Vol] 28.9 mmol/L Normal 21.0-31.0 [facility] Comment on above: Performed By: #### C MP, CBC ####[place] [address] [place] [address] [facility] Creatinine [Mass/Vol] 0.62 mg/dL Normal 0.60-1.20 [facility] Comment on above: Performed By: #### C MP, CBC ####[facility] [id number] [place] [address] [place] Creatinine Clr Calc Pharmacy 91.96 Normal [facility] Comment on above: Result Comment: PERF ORMED BY: [facility] [address] [place] [address] PATHOLOGIST SHADING PAINTER BONY DAVIS M.D. Performed By: #### C MP, CBC ####[place] [address] [place] [address] [place] GFR/1.73 sq M.predicted MDRD (S/P/Bld) [Vol rate/Area] mL/min/{1.73_m2} Normal [facility] Comment on above: Performed By: #### C MP, CBC ####[address] [address] [facility] Globulin (S) [Mass/Vol] 3.4 g/dL Normal [facility] Comment on above: Performed By: #### C MP, CBC ####[place] [id number] [facility] Glucose [Mass/Vol] 123 mg/dL High 74-109 [facility] Comment on above: Result Comment: [facility] Glucose Reference Range is dependent on time and content of last meal. Glucose of more than 200 mg/dL in a nonstressed, ambulatory subject supports the diagnosis of Diabetes Mellitus. ADA recommended reference range Performed By: #### C MP, CBC ####[place] [id number] [facility] Potassium [Moles/Vol] 4.1 mmol/L Normal 3.5-5.1 [facility] Comment on above: Performed By: #### C MP, CBC ####[place] [id number] [facility] Protein [Mass/Vol] 7.9 g/dL Normal 6.4-8.9 [facility] Comment on above: Performed By: #### C MP, CBC ####[place] [id number] [facility] Sodium [Moles/Vol] 135 mmol/L Low 136-145 [facility] Comment on above: Performed By: #### C MP, CBC ####[place] [id number] [facility] Urea nitrogen [Mass/Vol] 10 mg/dL Normal 7-25 [facility] Comment on above: Performed By: #### C MP, CBC ####[place] [id number] [facility] Creatinine [Mass/volume] in Serum or PlasmaOrdered By: Hussain Cristobal on 10-28-2022 Creatinine [Mass/Vol] 0.62 mg/dL 0.60-1.20 [facility] Eosinophils Auto (Bld) [#/Vo l]Ordered By: Hussain Cristobal on 10-28-2022 Eosinophils (Bld) [#/Vol] 0.0 10*3/uL 0.0-0.45 [facility] Eosinophils/100 WBC Auto (Bl d)Ordered By: Hussain Cristobal on 10-28-2022 Eosinophils/100 WBC (Bld) 0.0 % . [facility] Erythrocyte distribution wid th Auto (RBC) [Ratio]Ordered By: Hussain Cristobal on 10-28-2022 Erythrocyte distribution width (RBC) [Ratio] 15.8 % 11.9-15.3 [facility] Globulin Calc (S) [Mass/Vol] Ordered By: Hussain Cristobal on 10-28-2022 Globulin (S) [Mass/Vol] 3.4 g/dL [facility] Glucose [Mass/volume] in Ser um or PlasmaOrdered By: Hussain Cristobal on 10-28-2022 Glucose [Mass/Vol] 123 mg/dL 74-109 [facility] Comment on above: ADA recommended refe rence rangeRandom Glucose Reference Range is dependent on time and content of last meal. Glucose of more than 200 mg/dL in a nonstressed, ambulatory subject supports the diagnosis of Diabetes Mellitus. Hematocrit Auto (Bld) [Volum e fraction]Ordered By: Hussain Cristobal on 10-28-2022 Hematocrit (Bld) [Volume fraction] 38.6 % 34.0-46.4 [facility] Hemoglobin [Mass/volume] in BloodOrdered By: Hussain Cristobal on 10-28-2022 Hemoglobin (Bld) [Mass/Vol] 12.9 g/dL 11.8-15.4 [facility] Laboratory - Chemistry and C hemistry - challengeOrdered By: Hussain Cristobal on 10-28-2022 GFR/1.73 sq M.predicted MDRD (S/P/Bld) [Vol rate/Area] mL/min/{1.73_m2} [facility] Leukocytes [#/volume] correc rajani for nucleated erythrocytes in Blood by Automated counOrdered By: Hussain Cristobal on 10-28-2022 WBC corrected for nucl RBC Auto (Bld) [#/Vol] 13.4 10*3/uL 3.8-11.6 [facility] Lymphocytes Auto (Bld) [#/Vo l]Ordered By: Hussain Cristobal on 10-28-2022 Lymphocytes (Bld) [#/Vol] 1.3 10*3/uL 1.00-4.8 [facility] Lymphocytes/100 WBC Auto (Bl d)Ordered By: Hussain Cristobal on 10-28-2022 Lymphocytes/100 WBC (Bld) 10.0 % . [facility] MCH Auto (RBC) [Entitic mass ]Ordered By: Hussain Cristobal on 10-28-2022 MCH (RBC) [Entitic mass] 29.6 pg 24.7-34.3 [facility] MCHC Auto (RBC) [Mass/Vol]Or dered By: Hussain Cristobal on 10-28-2022 MCHC (RBC) [Mass/Vol] 33.4 g/dL 32.0-35.0 [facility] MCV Auto (RBC) [Entitic vol] Ordered By: Hussain Cristobal on 10-28-2022 MCV (RBC) [Entitic vol] 88.7 fL 80-100 F [facility] MR cervical spine w conon MR cervical spine w con [facility] [place] [address] MRI Report Signed Patient: Macie Cloud MR#: [id number] : 1975 Acct:[id number] Age/Sex: 47 / F ADM Date: 10/28/22 Loc: ER Room: Type: [facility] ER Attending Dr: Copies to: Hussain Cristobal DO Ordering Provider: Hussain Cristobal DO Date of Service: 10/28/22 MR/MR cervical spine w con: PAIN MRI cervical spine withcontrast TECHNIQUE: Multiplanar T1 and T2-weighted imaging of the cervical spine obtained. HISTORY:Bilateral hand weakness. Neck pain. History of cervical spine surgery. COMPARISON:None BONY ALIGNMENT: Adequate BONY LESION:None CERVICAL CORD: No pathologic enhancement. Mild epidural enhancement from C5 to C7 likely postsurgical. No epidural fluid collections.. SKULL BASE: unremarkable. PREVERTEBRAL SOFT TISSUES: Unremarkable NASOPHARYNGEAL REGION: unremarkable. VERTEBRAL ARTERIES: unremarkable. POSTSURGICAL CHANGES:None CERVICAL SOFT TISSUES:Peripherally enhancing 2.5 cm fluid collection in the posterior left paraspinal musculature at the C6-7 level. MR/MR cervical spine w con IMPRESSION: Peripheral enhancing complex fluid density region in the posterior left paraspinal region at the C6-7 level. Mild postsurgical epidural enhancement in the C5-C7 levels.. No abnormal enhancement of spinal cord. No epidural fluid collections. Impression dictated by: Isaac Dominguez M.D.10/28/2022 6:21 PM Dictation Location: [place] [address] Transcribed By: [facility] 10/28/221820 Dictated By: Isaac Dominguez DO 10/28/221813 Signed By: 10/28/221820 [facility] MR cervical spine wo conon 0 10-28-2022 MR cervical spine wo con [facility] [place] [address] MRI Report Signed Patient: Macie Cloud MR#: [id number] : 1975 Acct:[id number] Age/Sex: 47 / F ADM Date: 10/28/22 Loc: ER Room: Type: [facility] ER Attending Dr: Copies to: Hussain Cristobal DO Ordering Provider: Hussain Cristobal DO Date of Service: 10/28/22 MR/MR cervical spine wo con: weakness bilat hands, neurology asked for MRI cervical spine without contrast TECHNIQUE: Multiplanar T1 and T2-weighted imaging of the cervical spine obtained. HISTORY:Chronic neck pain. Prior cervical surgeries x2. Bilateral hand numbness COMPARISON:06/22/2021 BONY ALIGNMENT: Adequate BONY LESION:None CERVICAL CORD: From the C5-C7 level there is heterogeneous increased signal intensity of the spinal cord. There is also crowding of the cord at these levels. SKULL BASE: unremarkable. PREVERTEBRAL SOFT TISSUES: Unremarkable NASOPHARYNGEAL REGION: unremarkable. VERTEBRAL ARTERIES: unremarkable. POSTSURGICAL CHANGES:C2-C5 posterior spinal fixation hardware present. C4-C6 anterior fusion changes present. CERVICAL SOFT TISSUES:At the C6-7 level there is left the paraspinal heterogeneous fluid collection with thick wall measuring 2.7 x 1.7 cm. cannot exclude abscess. C1-2 LEVEL:Unremarkable C2-3:Unremarkable C3-4:Unremarkable C4-5:There are postsurgical changes. Patent central canal and neural foramen. C5-6:Postsurgical changes. Heterogeneous increased signal changes of the spinal cord. Moderate crowding spinal cord. C6-7:Postsurgical changes. Heterogeneous signal changes of spinal cord suggesting cord edema or myelomalacia. Moderate crowding of the cord. C7-T1:Mild spondylosis. Patent central canal. Mild bilateral neural foraminal narrowing. MR/MR cervical spine wo con IMPRESSION: Heterogeneous increased signal changes of the cervical cord from C5 to C7 levels with moderate crowding of spinal cord. Heterogeneous signal intensity fluid collection in the left C6-7 left of the spinous process and lamina. Heterogeneous fluid collection at the C6-7 level to the left of the spinous process and left lamina. Contrasted MRI cervical spine recommended to further assess. Impression dictated by: Isaac Dominguez M.D.10/28/2022 4:15 PM Dictation Location: [place] [address] Transcribed By: [facility] 10/28/22 1615 Dictated By: Isaac Dominguez DO 10/28/22 1550 Signed By: 10/28/22 1615 Normal [facility] Monocyte distribution width [Entitic volume] in Blood by AutomatedOrdered By: Hussain Cristobal on 10-28-2022 Monocyte distribution width Auto (Bld) [Entitic vol] 13.39 % 0.00-20.00 [facility] Monocytes Auto (Bld) [#/Vol] Ordered By: Hussain Cristobal on 10-28-2022 Monocytes (Bld) [#/Vol] 0.2 10*3/uL 0.0-0.8 [facility] Monocytes/100 WBC Auto (Bld) Ordered By: Hussain Cristobal on 10-28-2022 Monocytes/100 WBC (Bld) 1.9 % . F [facility] Neutrophils Auto (Bld) [#/Vo l]Ordered By: Hussain Cristobal on 10-28-2022 Neutrophils (Bld) [#/Vol] 11.8 10*3/uL 1.8-7.7 [facility] Neutrophils/100 WBC Auto (Bl d)Ordered By: Hussain Cristobal on 10-28-2022 Neutrophils/100 WBC (Bld) 87.9 % . [facility] No Panel InformationOrdered By: Hussain Cristobal on 10-28-2022 Pharmacy Creatinine Clearance (Chem 91.96 [facility] Nucleated erythrocytes [Pres ence] in Blood by Automated countOrdered By: Hussain Cristobal on 10-28-2022 Nucleated RBC Auto Ql (Bld) 0.0 /100{WBC} 0-0.5 [facility] Platelet mean volume Auto (B ld) [Entitic vol]Ordered By: Hussain Cristobal on 10-28-2022 Platelet mean volume (Bld) [Entitic vol] 6.9 fL 6.3-10.7 [facility] Platelets Auto (Bld) [#/Vol] Ordered By: Hussain Cristobal on 10-28-2022 Platelets (Bld) [#/Vol] 528 10*3/uL 150-450 [facility] Potassium [Moles/volume] in Serum or PlasmaOrdered By: Hussain Cristobal on 10-28-2022 Potassium [Moles/Vol] 4.1 mmol/L 3.5-5.1 [facility] Protein [Mass/volume] in Ser um or PlasmaOrdered By: Hussain Cristobal on 10-28-2022 Protein [Mass/Vol] 7.9 g/dL 6.4-8.9 [facility] RBC Auto (Bld) [#/Vol]Ordere d By: Hussain Cristobal on 10-28-2022 RBC (Bld) [#/Vol] 4.36 10*6/uL 3.60-5.00 [facility] Serum or plasma albumin/glob ulin mass ratioOrdered By: Hussain Cristobal on 10-28-2022 Albumin/Globulin [Mass ratio] 1.3 {ratio} [facility] Serum or plasma anion gap de terminationOrdered By: Hussain Cristobal on 10-28-2022 Anion gap [Moles/Vol] 13.2 mmol/L 6.0-15.0 [facility] Sodium [Moles/volume] in Ser um or PlasmaOrdered By: Hussain Cristobal on 10-28-2022 Sodium [Moles/Vol] 135 mmol/L 136-145 [facility] Urea nitrogen [Mass/volume] in Serum or PlasmaOrdered By: Hussain Cristobal on 10-28-2022 Urea nitrogen [Mass/Vol] 10 mg/dL 7-25 [facility] WBC Auto (Bld) [#/Vol]Ordere d By: Hussain Cristobal on 10-28-2022 WBC (Bld) [#/Vol] 13.4 10*3/uL 3.8-11.6 [facility] XR pre/post mri xrayon 10-28 XR pre/post mri xray [facility] [place] [address] XRay Report Signed Patient: Macie Cloud MR#: [id number] : 1975 Acct:[id number] Age/Sex: 47 / F ADM Date: 10/28/22 Loc: ER Room: Type: [facility] ER Attending Dr: Copies to: Hussain Cristobal DO Ordering Provider: Hussain Cristobal DO Date of Service: 10/28/22 XR/XR pre/post mri xray: PRE MRI OF THE CERVICAL Pre-MRI assessment of the cervical spine 3 images obtained. Plantar posterior fixation hardware intact and in adequate position. Adequate bony alignment. Mild degeneration. Decreased bony mineralization. Unremarkable soft tissues. Mild bilateral neural foraminal narrowing on nonsurgical levels. XR/XR pre/post mri xray IMPRESSION: Postsurgical change. Degenerative change. Decreased bony mineralization. Impression dictated by: Isaac Dominguez M.D.10/28/2022 5:11 PM Dictation Location: [place] [address] Transcribed By: [facility] 10/28/221710 Dictated By: Isaac Dominguez DO 10/28/22 170 Signed By: 10/28/22 171 Normal [facility] Coding Summaryon 10-13-2022 Coding Summary HTMLBase 64 QmxhziwsINc3hLm+PGhlY WQ+FZ9NVXWzB89bgDAlgU 6GG9tPPL4JUJKHPMDWQM1 WTU9sxRF9GRhcN8YuzgUw OixllECfGX50LGa5AFM8o ZprFZojyD0roAAfZ1d2Yi HuDQ27pK15OYxcCMIgVkQ 3LjZpbjsgbWFy P8rxFrYhvUJrHcx+PHRhY mxlIHdpZHRoPScxMDAlJy KwmEqcRO3cGs6zXZUlZMT vbGxhcHNlOiBj m1vhQIEtIOvpGA5klEylL 7RchUH5KYSjo1z7Wr97gA I+AEWuEOF2fQbgAPigu19 8CrKpy9rbQOD3 eFQnAVxdAAJ0C59jn7X0K ISsRYAyNDT8qQD2jE0ieI ezynzyH7ZiyAOaNfY5ITR 8hGKezR2ceUom motmrB6aEbg+Y98WJO0IV YNISG4AVzc1Y9PjLxxaqK I+DS14TJCeXL15wECipTN dz0gwqMq6PjUt VKCdVAA3yNwaWZfhp0PqR VQoX80jbGIlx8T4IJJfvG monOXgXzOeoZH0iC4iNSg wnalpy5uryzsr Vpzdw3baxg85fW83W11kR EblEQFcKVB8GUSnPHMedZ dkik7dwW6sZk8+YApmy3o sz6qedUw5IcNx MZLgqeYqnIqnRWA4g0WqY n08K2ZvvAnyy9RkMhf2uv 38lYTfk1L1gBJ5HLjoUVE hnQ8mEXrjOwL2 FQDgKeJfbM67zBBiUOwsK e7lkLwjfOdnXZ7mTLOevv mnVFPqyB0dLATwrFZvcSz yOD2cFAXpvqve b818UbJpSSI6PIYbyUYlL 6WjwL0qKeJgBMLjBESzV2 JndHYsBAckA482OStvHiR 9NXVdavOdH0Sm QBYetKbsXfH6f7R8Tf5Ai 0HregsnUHW1EZbgSPUlXt CbAaVmFsG7X2UyIwj5NHI hpGwrUE0vI4Be WIVxwizzmtctkUV8VLLtY SZvwP68lQQzHDgmLg7ok4 Y2b079OSYzMPJpeQ66Oj3 udDogMTBwdCBU lT9fddqsb8wmtqyzBlGtM FYzEAw5KKv4LQWdfAtnQw SkMWW3XjO6RAB2eVApfF2 jfLvsvpibsC6f Oyc+Q00ubT0iMEZ2OHY0d kvbOUByukEyGE75JQ45C3 RyPjwvdGFibGU+PGRpdiB ynUejNO3xHmSu p7yfl6VxJVsaY9HuYDDkR EbeKpw7PYDbZJV5bNX0hS 5hQQXcBAkkm7G6eUZ7O8R oiePxud1df9lp HDJvDAmvS20ipLGyh0U2T IQzaIR2TJNjcCeaWzXdiP 93Oyc+EEOobOmuj4IcEej up7ubt3ratMp8 JlQjHDBqxwMwjBlwIUE7c 1LfEd93O35dSSyfNPGbYT AjJGCzNKYwhLxgjh6maM3 wIi8+PGNvbCB3 uXY7vJ7dMSPmXcS2FPqxQ 527KyQvrGDpZhxcm1biz2 jcpAs5WoWfNXJpcyKxcMo mCPX9y6HqIm15 P93wAYogGASzEXVbOSIiA GRvfOfzzi4mvQ1kXd5+PC 6xy2pwet05oL19sCK+PHR zHGJ9hOhbMGxb HNAxmR9pQZazVoM7DMKoO jRpmK91sRRfXXfvGz2ufU puoAibDS3pWMXffsbyn46 7ClUko7ooNPEm pBBiXSqoVIN8G38ph9K7F CMlTWQfCNW6mWU7dX5alZ lnbjogbGVmdDsgdmVydGl jMDvwPCnlJ228 IHRvcDsnPlBhdGllbnQgT oWzIEg0R7AhSvk3JLIcpD agVE8nlEDpUZqlEt1gdNx jdRhmIG0dMLCi cauau908PeFhv8hbDBNoh ONpDBdkWJK9Y76wb8N8SE VzMWElMYW4xLB0vS7tfQl nbjogbGVmdDsg nkNzdWtsUYgrUWriY749G HRvcDsnPkJpcnRoIERhdG R9NZ70VV96dCNcj5G3qMK 4B3GyRONgwczi nmousCN3GJZqMWBkqX03R c9ncEybMk6gXNOiUGT4MG YkcXFlT3VbtC0xPkPuPFO eDAVhN5ExuNQw CForZ667XTreCcT1ZJPju pWbO5KhOKTxkTnmWaZ4k9 J1Ma7XA5Z8EH11PF22qNY jp0L8iZC7V0Hg FIIwycozuewxfTX1UBQbE LBdtN48Ll8mgKhcEo9cZI DzJSH2AFYqkLZfR2FzfH9 yOiAjMDAwMDAw T8PwfTSmWWcqC919EWueD fM5URAegfKsK4GaXUYvdU twRxL3l0J1Gc5BSNx8OQ2 7QF03gJPcs9K1 rBH1O0KoICJufkxpxatfo PZ5AEBsXEGoiQ54Qb6rtC bvFa6mUMPuJCL6YJDcoYQ uH9VhnA0wMoQj ILKnEFAiD0XvjLEmSTviT 998GOjcKlS4TRQilwZrA5 UmWAVesUfuXcP7g1M2Cl5 LKYWsKT68RIM1 eYL2TL29LI54L2BcCzztr GFibGU+PHRhYmxlIHdpZH RoPScxMDAlJyBzdHlsZT0 bOx9lQVRlZGQl iYovfBLiIgZsg2jpDMDrY QhlKK6kxEopQ6WfeBO9WY Paf7x8Vz50I75kF4AlyFJ +VYFmkJK6dQY4 pS4eHyBxUpD5UBpaV457T lTjnJNcTbccd5icv1rxdN m4TbV4LDFgzgBahWugUTW 4h4FuKn81G57z IHdpZHRoPSIxNSUiIHZhb Prjxx7fyY2fHb8+PGNvbC U9oTV0zQ2oLoNnPfR3JQm mP425TnRdwLOb Hdexm5afw0ktnVb1GvLnD KVdxaHkkFpuUHV4n6WuTs 02P2IonPunt8TrNqc2mr1 8lJIca0J1tAH6 P4CiASQtrgadvWInsTmhN E0fWERvdvylOTOaaP9gML InW3i5ZoLwIrZ9OBddZ6A kzmE0RYUhkIGa RCpxYSE8V81xz8I4JQSrE TRuXGW8mZA5rR1cqSnojx ogbGVmdDsgdmVydGljYWw mGAqlU564OFFe eJfuFHFpcM3mWVAimOSfv ZucMC3vMRWuxpdjPvPIAS jCGPSQPRHMRPY4X5LeVnx 4LJOhrDdeYK6f nVAmLThvYq9hzIesuMysZ O1jYNMumlmlPVLkpQ0cSL DhfFDfoJftVK0xVSSolzz as315KeGmBFD0 NVQylIRcT5RcbR7jAhCgD UDcYAWcJ7FelXBbSZhhQ5 12XBogFoO8EXKpreVdK9L sLWFsaWduOiB0 k4Z0Tc2jAx5yGu4oLYrfC H71VM70eFCqe7L5yNY5L8 LcYVBxxpvzwzvmaQE5OAG bNWYjrG91dWWe PBdwUn9ac5T7p655TRAdT WFiaW09Wl2ifSsuBQGvbQ CHtE2jjaiob2qpmexmVjH uQTPoATq0OYq8 RDDswLsbOeHxHFU1QwZ2N QR4eKAwbI5zwLxcbpuqqC 9wOyc+GWueAYZhkgV4I8J hSuu4PSMxcCnk HZ6uhROlGCriNx9awXrky CnzFC3nHUFdhnybCJBakI 9sNRMnhZUscAskHU2sGIP lahjbr931GkRl WZY7ITYsnGHzW2RduK1rN iHbFGKzICKqM8LisGQxTF ymX728WMsyGqU2XCTxjiK kR4XgMVSloZst DsB2d8W4Qx4NHU5KTQK9E 8CkWgt6YVTjjMrrER5tqP YkHAomWh5thIhynUumEI6 wNTBpbjtwYWRk mT2oXSGzvOOjmYyoEM0pQ KZqggugt976VsAzVWT2NX LpqPSiX3KeoB9vSbCrSDT wRBEeO1PjwKHu XKlbS937ZDpdCoN2JYDlg pQyW7VhXGOedRzgPlN1x3 O3Lm4USBzptXR+QW71hu3 7M8SfZnzqVfx0 EXTdNGL2dZC4jW9iHVKxP Xovf4O1gGN3I8RcdzPgmi 7wy3baVVIqXSrfI91rnFL ee9D3KCMqtKS2 HKJrbIuxVoWgeM07Ima+P AFyqWftq2LhSbirn1qsb8 dmcRz1ZuStWUXgrpBpjMp nANM1x1PfCd38 S51pPNljWRXoGBMwBXJoV LEgvUuyau5glS6wAu6+PG BraKW2wVX1lR2vZlQsTuF 3DWooO450QqRr nEDfPllie1hna3udxTp0Y yFxZYLcdmMroZmcFXA4l2 KrLk48M5XnsGcat6DjNql 8to19rOAya1Y2 vZI7M2HoCRQrfkyanDSap DizCN9mKTVkvduxNTBgdG 7wLUXfP2h0OzAtXxV0BPt kK6GjfaG3FFNg hRSxLHFypYBDcB9cffwfo 0pthswtZyPsUQMaPLa4WX d6LVNikQspSuMuICB4VaX 1PRO5kCVvvD6i vIkrubyduG6jVsv+UGh5c 6homDQfXE3qnHU1VM87QC 05kWZhk8H4gWS8V7DkHMN pbmctcmlnaHQ6 PDEiELMbmB22Cv5sqYggH e9jZUKgOSB8YGXorBWuI1 PzvA7qOfCmLHByFETsY9P xsQGkGMtmC384 MMtlQbQ4AQWarzWkD6RrB AXpsTftDrJ6m5X7Is3CIT 93MR06CP76gOLhb0B9dCW 2D2TbETFlmaue bnzrtWP0EDOaJJEjaG82W s9lnEztZv3hFHRdRRQ9KL RjoKBkB0KbuG6sLyVdNGU sNSSwX3JgnVUt JZleL498VOmfDbR8INSfq lEfR1RkFDWmaLdcEdU1n0 O9Vc7UCu68MR60HD13sEQ un1C3cGV2F0Zq ZCOzyojuvtpodJT7EPHzF YYtzF98Re2reAdkTn7aQN KnFTW2WCHycLEuG8YctN1 yOiAjMDAwMDAw L2HxbZXgVVjqP706ISpaS hF0VVXfelIsW5JaXCRztH tnNnE2l1D6Ov0HVHruwwh 0W4GiPbcfpJY+ BZ13YPMeIL81wDKcfYVyw 0sghCj3HsHqGJBuFCH6kM wiFDeik6EgQOSyU68zhIJ hw9I8EBWdvVhr cHN (more content not included)... [facility] Coding Summary HTMLBase 64 RssomvdsCHl7jGz+PGhlY WQ+KY5QHNMpA48dvVCuuT 9EK0lGOT5VANNBXIRVBT1 AJJ7rcZC2YOenF7DqygQq KzdanSZmMH73QVo7OFQ7v LcrSWhuvO9irPVmV9e1Rj QxOB99aW10FOszQWDnWcE 3LjZpbjsgbWFy J3tfMtFriMIkWbx+PHRhY mxlIHdpZHRoPScxMDAlJy RgxZccOU4vPp3yHBOmQSW vbGxhcHNlOiBj y0plQJQxHBicMG7cmEcyO 8TzjEC5ADAxq7o8Rz90aA I+JBEeSQM9oQyaEHgho92 1KpUch5duVVT7 xYEkPZqvVAS6D98pg9S1N QAcFREyFMK9lJN3zY1moZ nhzqbrE1KcpAEfVlZ9DBE 2kLZfnS8uwNqd gmjgrW0bAhz+G03HOC3FZ RPXEO9EUhk0G0TqIqrxpP I+WF20PNNeEL60qVQnlEE zf3tbwIq2IgKr HYDtYNT7vRckFOths2UhI CLjD71giGWzi3G1JBPkdZ xvqHWvPdFznJJ8iI2nVJl wjiwqc7wmmsrw Sdwym2orqn68iN76A48uM BelAFHeABP9LAXgRLOzbS lmdj8upI4kYc6+KHppp5h ep0pqrGp8NuOl GZIwiuAgaEnpMVW6b8NwJ r20A7RsoFous1NdCwb6bo 93ySNwh4M0oWJ3OJsrYYE hlA7lSJynRcZ3 OIEqXcEjoK75fTDkRObnL g1ucZkqkOsdCP5oSWNwqg upKKMbkD9jDXGmxJBwjHf eDU8gWPWoiquu w603AuQqPLB4BXHblUJyS 3GcvN0wMvDkJXDuUUZnV8 WuuZJbGIgxO026LCijVrF 8SUPcmlAtA0Xt BHAvdNyvNcW2c8W3Xe9Jf 5IbzkhoJXQ0FTqqMGCmAh XcXaCsZzA0K9XrMmm9MGD joPoqPP8mH8Jl MTPuskcrbbpmvWP9RDIlU APinD96aXClCZyyFg3iv2 W4c218FVKpTGGgfL31Uy8 udDogMTBwdCBU qA9xidxud2fjkdchOrZuN NMfMFx9AIj8MTPfkKbhUc NcWUX2CdK5VDM4qYLeuO1 ypMnatrfogC6t Oyc+Q82jeV0bTUH7PXN6b kssLSZasmUuCO18EB51Z3 RyPjwvdGFibGU+PGRpdiB rjRhmSM9qUgQw e9cud8RvGEgeL3UiAWMxW LftYmi7UNSfINW6xOC2nJ 7uCEXbQLjpe7G2eID6L0Z otkZvsn6it6wg QURwQKbtV31rhVMjx4O8J PTmuUD6YKDubAtuCfZklQ 93Oyc+OEQktAhnm9NrNyt tb3iqa6drfTz8 PnTjCNCgssSpmDdaOZQ9a 9UbGa06L61nLQmpPVEnKN NzTAVwIKAorSpmib1wpM4 wIi8+PGNvbCB3 mAX5pU1aWSLvNqD6DHejO 414TpWfvEBaRjkmk1lnb2 vwbXg9UaKmBVKmlcEmvEa tRKB5l8XlWz35 Y88oLEexAQJpQYJgUBHkU MBqoFqbsk2riV9sZt0+PC 0qf4eomg73hV71yWX+PHR oRLW3iZxvXDzy IDCerZ3fIVvtFoT6FMBbJ mFpiK49vTMuCSvlIj9ezP rrgXqvOB1lWKXghvnee83 0XcIfr5diKCYv uGRmIQjtOVC6Z12rl8F6H GIiXOHmELQ4nZM1kF7toT lnbjogbGVmdDsgdmVydGl wDCzkLTgcK280 IHRvcDsnPlBhdGllbnQgT rUpUYo8D4LcInn8LDZbvF xlOF4ieFHrSZktLd8heMk qlUheGU4cKEEm yvfah411XuRlu4dlFLPtr LVrMXhcXRW9J57ah1T6YM ImBHCdZKV4xSR9mA2kcJm nbjogbGVmdDsg xrCxrIduQKecPMfoD164S HRvcDsnPkJpcnRoIERhdG L4XG71SZ34tKGyn1P6aJE 8L2IvNULjeyyg dmmwfML5ULCtIBUvmV25X q4cqVucAc9gZEOhWNV2VM HhsZZoR1IntY1lUsDhFDO hEZWeZ5WuvDRf EMalO320VAzdNrI1EZZil yKxV2PyOKFbmXupNbP9h9 O0Kw7SF6S9ZB46BD91kYW bc9C5oJO7W5Ww IMZqpacdlhnoxDM4KBDgV TXvzB59Vn0swJjjQw0lOH KqKXY7MXQtzJHgO1ZdgH9 yOiAjMDAwMDAw V2PnuJVoSRumZ235GMaiE xF3WCCpmlCwD4FtQKXndR wsPvL2j6K7Iz2FUMv4QT5 7AD58yTXyb6O8 xNJ6B1PnLTWzphtwxaswx CP2NLOoYMQxmS32Pq5fbZ feCz2wPWSdPIA9URRlaXE wV3BsuS3tKuQn EQWkAKUcR0EueDFkDIubF 347TVpmNcO5PGKaxkCiZ8 JpHHRczAchTgQ4h7W9Sf1 LLKQtWX92GDM4 sIS2XL90ZB07F2FxPzqzq GFibGU+PHRhYmxlIHdpZH RoPScxMDAlJyBzdHlsZT0 dGw0qYPXzLUHv kCydhZZkVnCtk0jkMCGnC SqxBW2huMakB7LvcIY4HC Yzd5o2Yy34D81iM7TsdDP +FYDlwWW2kNO6 fC6iFxEbTaB6PNvhE213N yFtuJNfEpcpt3prj9holI m9YfN5NQSmnzKlmStzFVE 4k5WwSt25T11i IHdpZHRoPSIxNSUiIHZhb Nvhju7szC8aYq4+PGNvbC T4dRX3bY1zBrSuJcE9ZCj nN052InVxnIOv Zbehr9swd3hznNz5AgFoS LGxsxKuwKbcMJZ6z5EhYj 86K8NjwSfdt7VwTmp2na2 1mUMft5Q6mJT4 Z7AaSHXctwuywCUguLyaU S4gTKPxoeknTDAudP3fIY OcU4o4QbQkNyS4OFwoL9I wwvO6YBXopPZp NQykDJP2D01gx7A8BJVbG AKeDSN5dQB6fV2ajSfply ogbGVmdDsgdmVydGljYWw qWTsaE836IWRf oJdbDFVzbH6iXMMbcKXcr MehZO4iOIGksviaXmVCPJ rPBBCHFVUGHQV4D8YuKya 5PLJulUmuQQ8g yXXyFOulCk5ngLfqcVzvU C0bMQBtknzdDXUzsG1pZL SbqFAicTisSZ0mSYKoeqm cv109UaTbXXF4 AJMqhDFjL6DvwS8dHeUxJ XXtKHWdG1GhdVZzXYojY6 38HTidGeT6OCSlwhZbF4G sLWFsaWduOiB0 t8Q6Kt0gMn5hRk0dUTekM X79SR43jKNvb2Q6eGT8X0 VbYAFvifctgwiviOT1MNG lKNIvxF35gHVz CGciGt7be4U7t529RWJdK EVdfZ90Jf1nrZogZFLtbA UWkN0mvegki2diamufJqO lSQPqCRo4OBp7 MJPjhTtfTbThYLK4NjJ4D SO5rPQyiA1cvRdfvkwkmF 9wOyc+JCohSJQgffX0C1M rSkl6QHMriWps SJ9gqCSrOLtfUi6khJcsz ZooIB2xYTShrpvhWTExuH 1uHVRsjIJsxNxySS5gMVC gxadqc842CyNb NNC7NQPruSAtY7PpzS8mO dRzMJUbLBTrK3QcrMRrNG uiT449SWjjTjN9YYZtykU dO8VwUTUuaRcj LcH4s4C4Qa2UOW4VMUS0J 6ImVug9BVXryMimAP6cnG NeGMynZn2zeTntlRjbPW5 wNTBpbjtwYWRk wN1sICEyvUSzkTjaAW1sT YFpvwqll409PaFzWEP3HA VicISdK0UbsX9vIeOkOJP vHNJgK6CukEUg EYdkI265IYvlFrV5HVUml gNfB7MgPCYqcJgqNrN8a1 J7Il7FfKJtP2HfW0f6F9B kPjwvdHI+PC90 GCQjUS00eKLajWIfa8mjy Hg2EwLtBETjORP9hUmcVY aja9SbQYBvE03gbTYgf6P 6IGNvbGxhcHNl OtTsaDL6mR5vFJxvucwpm 0lmehohCujsn8qskl43tQ 24E12fENgvJWBxVEGuHGA lTSNfiDkjzq9m hJ6oCo2+BHRedEK5mEC7y S0vTkViAaU1MJpfS339Vo KrmKFxGhdri9oke7spjTm 9IjIwJSIgdmFs mRvoDRQ8k8ZhAj52C63zP HdpZHRoPSIyMCUiIHZhbG bgbx9yiK3jBg5+NE5jl0y sno32nL43aNW+ AUDqJYE5eSgdHLmtCFOmh R6xSDgsBtW1IMGfHpWsiK 69iLUmQWllRf8uoSbnlGa oUS4yROCuxhqt c114WwKuf9qmEUHhoLEsN VdzFXD4P87eu4W3QJEtMZ TjRVR4bQV6yI4bzGynslt gbGVmdDsgdmVy zTpdFQwqJPmfL425RSJjy YgyHcWhvUTyA1ujzoLSZE 1lOjwvdGQ+HASzNSU5kEe fGGriPQWxmM5h JDYvH5f4XlOsDiA9LZciL 5CaugE5QYXxhVSbPMDarJ JJoG9emlmhp4ydzkmdNsI eQUPsXUb2QTr2 YSFafXzaUeHvGEC0NwI6Q UQ4jBXsaF0evDjdbenkjH 9wOyc+RklOOjwvdGQ+PHR kYHC8rVxjDBai ZKSyqM6tQDKzH6v5WjEtB jK1RQeiS5PcuyQ1HVKqiV NaRKKreYMTgM0oqblbd6g vcjogIzAwMDAw ARr4OEy6YYQmiApiKjVgD PL8MkC9LBZ1fORlaV3crM egprdprT0yGmu+TVJOOjw vdGQ+PHRkIHN0 gVtuKLkzBLEakX0yXPAxO 0n9EwUjSmG4GPcvA3Qyyq C7GDPptCUoCXRoaSMWrA1 thsary1hietkz WoYkPZQrQZw6QXs3NHBtz QckGlIyOER7JiN7BOL4mP ItyD8xtYgqxmwsrT7xGjb +ZGQ9EWP6CE36 AM38V0EqAadkgFEmwOC+P HRhYmxlIHdpZHRoPScxMD YtRzGzaZozOD3sNl7iAGP yLWNvbGxhcHNl OiB (more content not included)... [facility] 10-07-2022 CNPN Telephone (SPNSMN) MACIE CLOUD ([id number]) 1975 F Date Time Provider Department 10/07/22 TOO HUGHESMN During your visit today, we recorded the following information about you: Karen Watkins RN 10/07/2022 9:11 AM Signed Neuro SPINE CARE COORDINATION SURGERY SCHEDULING Pt scheduled for 12/30/2022. This date is now an OR at [facility]. Due to this, pt will need to be rescheduled per Dr Hughes, case not appropriate for [facility]. Call to patient to discuss above. Reviewed with pt that we will need to reschedule surgery. Reschedule offered for some time in November, pt has not stopped smoking as of yet and has not taken nicotine test with that being said, next opening date will be in February. Pt accepted February. Education provided again on nicotine cessation and lab test to be done once she is 3 weeks nicotine free. Pt verbalized understanding and states she is working with PCP to quit. New surgery date of 03/07/[address] Hughes. Pre op appts: PACC: 02/08/2023 at [facility] IC: 02/08/[address] Hughes at 240pm S70 [place] ([facility] Office Date): anytime Pre op Education: 02/08/2023 inperson at 3pm with Nigel Watkins RN Post op appts: 2 Week VV Post-op with Caroline Malone NP 6-8 week post op appointment with Saul on 04/19/23 at 1120pm. Please schedule XRAY prior to visit. Case message sent to surgery schedulers. Karen Watkins RN Allergies As of Date: 10/07/2022 (No Known Allergies) Date Reviewed: 09/13/2022 Reviewed by: Tiarra Prince MA - Fully Assessed Reason for Visit: Surgery recsheduling [Other] Care Coordination [7611] Prescriptions as of 10/12/2022 - Mesalamine (LIALDA) 1.2 gram EC tablet Take 1,200 mg by mouth four times daily. - tiZANidine (ZANAFLEX) 4 mg tablet take 2 to 3 tablets by mouth at bedtime if needed - cyanocobalamin (VITAMIN B-12) 1,000 mcg/mL Inject 1 mL subcutaneously once every month. - omeprazole (PRILOSEC) 20 mg capsule 40 mg. - rOPINIRole (REQUIP) 1 mg tablet Take 1 mg by mouth. - gabapentin (NEURONTIN) 300 mg capsule Take 300 mg by mouth three times daily. - lisinopril-hydroCHLOR Othiazide (PRINZIDE,ZESTORETIC) 10-12.5 mg per tablet Take 1 tablet by mouth once daily. - amitriptyline (ELAVIL) 75 mg tablet Take by mouth daily at bedtime. Problem List As Of Date 10/07/2022 Noted Resolved COPD (chronic obstructive pulmonary disease) (H*06/30/2017 Current smoker [F17.200] 06/30/2017 Neck pain [M54.2] 06/30/2017 S/P cervical spinal fusion [Z98.1] Anxiety and depression [F41.9, F32.A] Iron deficiency anemia [D50.9] 11/11/2020 B12 deficiency [E53.8] 11/11/2020 Encounter Status:Closed by KAREN WATKINS on 10/07/22 Normal [facility] CT Spine Lumbar w/o Contrast on 10-07-2022 CT Spine Lumbar w/o Contrast EXAM: CT Spine Lumbar w/o Contrast HISTORY: pain/fall 3 weeks ago COMPARISON: Lumbar spine CT 08/04/2022 TECHNIQUE: Axial CT imaging is performed through the lumbar spine. Sagittal and coronal reformatted/reconstru cted sequences were performed FINDINGS: There is prior L3-L5 posterior and interbody instrumentation. Internal hardware exhibits no gross visualized irregularity. Vertebral body heights and alignments exhibit no fracture or listhesis. No prevertebral or paraspinal edema or collections. Sacroiliac joints are unremarkable for patient's age. Atherosclerosis of the aorta and visceral vessels. The visualized posterior lung bases exhibit no gross acute abnormality. IMPRESSION: No visualized acute abnormality Final Dictated by: Antonio Alston DO Dictated DT/TM: 10/07/22 9:16 Signed (Electronic Signature): Antonio Alston DO 10/07/22 9:19 pm Technologist: Pauly ZEE [facility] ED Clinical Summaryon 2022 ED Clinical Summary [facility] - Emergency Department [address] [place] [address] ED Clinical Summary PERSON INFORMATION Name: MACIE CLOUD Age: 47 Years Sex: FEMALE : 1975 MRN: Acct#: Visit Reason: Back pain; BACK PAIN Arrival: 10/07/2022 19:31:00 Discharge: 10/07/2022 21:28:00 LOS: 000 01:57 Check In: 10/07/2022 19:31:00 Checkout:10/07/2022 21:28:00 Address: [address] [place] [id number] PCP: CRISTIANO GRAHAM PROVIDER INFORMATION Provider Role Assigned Unassigned Rosi Alex PA-C ED PA 10/07/2022 19:33:11 Danelle Mar SCOREKEEPER Nurse 10/07/2022 19:56:16 VITALS INFORMATION Vital Sign Triage Latest Temperature Tympanic 36.7 DegC 36.7 DegC Temperature Temporal Artery Pulse Rate 80 bpm 80 bpm O2 Sat 99 % 99 % Respiratory Rate 16 br/min 16 br/min Blood Pressure /75 mmHg /75 mmHg MEDICAL INFORMATION Medications Given: Allergy Information: No known allergies PHYSICIAN DOCUMENTATION DISCHARGE INFORMATION: Discharge Disposition: Home Discharge Location: Home PATIENT EDUCATION INFORMATION Instructions: Chronic Back Pain; Musculoskeletal Pain Follow-Up: With: Address: When: CRISTIANO GRAHAM [address] [place] [phone] Within 3 to 5 days DIAGNOSIS: 1:Chronic back pain greater than 3 months duration; Other chronic pain Patient Understands: Yes - Patient/family/caregi robyn verbalizes understanding of instructions given Comment: [facility] ED Note - Otheron 10-07-2022 ED Note - Other [id number] .[id number] [facility] ED Note-Nursingon 10-07-2022 ED Note-Nursing Pt walked out of eleni and stated that she wanted to leave. Pt educated that she would have to leave AMA. Pt states ok. KT, PA filled out form and patient signed and exited the ER, walking independently with family out to private vehicle. [facility] ED Note-Nursing Pt requesting to leave and have results sent to her surgeon. Pt educated that PA will not discharge without CT results. Pt states well this is a waste of my time. I came for the scan and I got it so I should be able to just leave. Pt educated that we give a CD with the results once image is read by a radiologist. Pt educated that she may if she choses to leave AMA but the PA is waiting for CT image to come back prior to dc. [facility] ED Patient Summaryon 023 ED Patient Summary [facility] - Emergency Department [address] [place] [id number] PATIENT DISCHARGE INSTRUCTIONS Patient Information Name: MACIE CLOUD Age: 47 Years Date of : 1975 Reason For Visit: Back pain; BACK PAIN Arrival Time: 10/07/2022 19:31:00 Primary Care Physician: CRISTIANO GRAHAM Attending Physician: Herbert Pacheco MD Comment: Visit Diagnosis: Diagnoses This Visit Back pain ([id number]) Chronic back pain greater than 3 months duration (M54.9) Other chronic pain (G89.29) The Pharmacy at [facility] is open Tuesday through Tuesday from 9A to 6P and Tuesday and Tuesday from 9A to 5P Prescription Information: If you have been given a prescription for narcotics, seek immediate medical attention if you have any difficulty breathing or any sudden status changes such as confusion and sleepiness. If you or anyone you know is experiencing suicidal thoughts, mental health, alcohol and/or drug addiction problems; contact the [facility] 07/03 Crisis Hotline -Text 4VWIJ to 841829. If you received any narcotics, sedation, or any other medication that causes drowsiness for the next 24 hours, unless otherwise directed: ? Do not drive a car. ? Do not operate machinery such as power tools, lawn mowers, drills, sewing machines, or stoves ? Avoid alcoholic beverages and drugs for allergies, nerves, or sleep ? Do not make important personal or business decisions or sign any legal documents With: Address: When: CRISTIANO GRAHAM [address] [place] [phone] Within 3 to 5 days Medication Information: The exam and treatment you received today in the [facility] Emergency Department were for an urgent problem and are not intended as complete care. It is important for you to follow up with a doctor, nurse practitioner, or physician?s finance assistant for ongoing care. If your symptoms become worse or you do not improve as expected and you are unable to reach your usual health care provider, you should return to the Emergency Department, we are available 24 hours a day. For those patients who have received Radiology results, the interpretation of your X-ray as given to you by our Emergency Department physician is only a preliminary report. The Radiologist will review your films and if there is a change in the diagnosis you will be notified by phone. Please make sure you have provided a working phone number so we can reach you if necessary. In the event that you had a lab culture while you were a patient in the Emergency Department, you will be notified by phone if there is a need to change your antibiotic. Please make sure you have provided a working phone number so we can reach you if necessary. [facility] Emergency Department has provided you with a complete list of medications post discharge. Please inform your chief operator reformer/provider of your visit and for further instruction on these medications. Any specific questions regarding your chronic medications and dosages should be discussed with your primary care physician(s) and/or pharmacist. Additional medications on your home medication list not specifically addressed. Please contact the ordering physician if you have questions about these medications. gabapentin lisinopril (lisinopril 10 mg oral tablet) omeprazole (omeprazole 10 mg oral delayed release capsule) Visit Information Allergies: Substance Reaction Symptoms Type Comments No known allergies Drug Vital Signs: Vitals and Measurements this Visit (last charted value for your 10/07/2022 visit) Vital Signs This Visit Temperature Tympanic: 36.7 DegC Peripheral Pulse Rate: 80 bpm Respiratory Rate: 16 br/min Systolic Blood Pressure: 105 mmHg Diastolic Blood Pressure: 75 mmHg SpO2: 99 % Oxygen Therapy: Room air Measurements This Visit Height/Length Dosin.000 cm Height/Length Estimated: 170.000 cm Weight Dosin.430 kg Weight Estimated: 54.430 kg Problems List: Problem Onset Comments No Problems found Patient Education Chronic Back Pain When back pain lasts longer than 3 months, it is called chronic back pain. The cause of your back pain may not be known. Some common causes include: ? Wear and tear (degenerative disease) of the bones, ligaments, or disks in your back. ? Inflammation and stiffness in your back (arthritis). People who have chronic back pain often go through certain periods in which the pain is more intense (flare-ups). Many people can learn to manage the pain with home care. Follow these instructions at home: Pay attention to any changes in your symptoms. Take these actions to help with your pain: Managing pain and stiffness ? If directed, apply ice to the painful area. Your health care provider may recommend (more content not included)... [facility] Telephone (SPNSMN) MACIE CLOUD ([id number]) 1975 F Date Time Provider Department 09/17/22 TOO HUGHES During your visit today, we recorded the following information about you: Karen Watkins RN 09/17/2022 12:51 PM Signed Neuro SPINE CARE COORDINATION SURGERY SCHEDULING Per Dr Hughes [place] to schedule pt for surgery. Patient accepts surgery date of 12/30/[address] Too Hughes at [facility]. Planned procedure: Revision L3-S1 and ext to L2 lumbar fusion. Length of Surgery:5 hrws Expected Length of Hospital Stay:3-4 Patient's Home Address: [address] [place], [place] [id number] Medications reviewed : Yes. Meds to be stopped prior to surgery : NSAIDS and Vitamins and supplements. Additional pre op clearances needed : None. Any implanted devices (Stimulator, Defibrillator, etc.): No. Transplant History No. Nicotine use: Yes- Dr hughes aware. Pt provided education on nicotine cessation before and after surgery. Pt aware she must have a neg nicotine test prior to surgery. Patient will complete optimization lab work : HgbA1C, Blood Management , and nicotine. Education Sent Via Mail/ [employer]St: [employer] PACC Questionnaire Completed: Yes Qualify TREK for Surgical Success?: Yes Patient placed on cancellation list: No Pre op appts: [place]: anytime PACC: [facility] 12/07/22 IC: 12/07/[address] Hughes S70 Education: 12/21/22 telephone call with Nigel Watkins RN Post-op Dates: 2 week Virtual Visit with Caroline Malone NP 6 week post-op needed with Dr Hughes 02/14/23 at 1140am. Pre clinic XR: Yes Questions answered. Patient verbalizes understanding via teach back. Additional comments : n/a Preoperative Needs Assessment Do you live alone or with someone that can help you? Alone Will you have assistance available at home after your surgery to help with physical activities such a toileting or dressing? Occasionally How many steps do you need to climb to get into your home? 1-10 Once in your home, how many steps do you need to climb to access your bedroom or bathroom? 1-10 Do you use a mobility aid for walking/getting around? (note, if more than one type of aid is used, select the one that is used more frequently) None, Cane, and Walker Anticipated LOS > 5 days: Yes Significant home social issues or Current history or past history of substance abuse: No Wheelchair baseline, Homebound baseline, Significant gait instability, or History of significant falls: Yes Thora/lumbar fusion any level planned or 2+ level posterior cervical fusion planned: Yes Myelopathic or Spine tumor: No Probability of non-home discharge disposition : Low [13.4] FATUMA Whitt 09/20/2022 2:44 PM Addendum Patient is calling wants to know when she has to stop smoking before surgery. Call back # [phone] Karen Watkins RN 09/21/2022 12:52 PM Signed Neuro SPINE CARE COORDINATION QUICK NOTE Pt should be nicotine free for at least 1-2 months prior to surgery to allow amble time for pre surgery nicotine lab test. Recommend pt have all optimization labs including nicotine by the week of November 22. All questions answered, verbalized understanding and instructed to call our office if any questions or problems arise. 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 - tiZANidine (ZANAFLEX) 4 mg tablet take 2 to 3 tablets by mouth at bedtime if needed - cyanocobalamin (VITAMIN B-12) 1,000 mcg/mL Inject 1 mL subcutaneously once every month. - omeprazole (PRILOSEC) 20 mg capsule 40 mg. - rOPINIRole (REQUIP) 1 mg tablet Take 1 mg by mouth. - gabapentin (NEURONTIN) 300 mg capsule Take 300 mg by mouth three times daily. - lisinopril-hydroCHLOR Othiazi (more content not included)... Normal [facility] Albumin [Mass/volume] in Ser um or PlasmaOrdered By: Michel Venegas on 09-16-2022 Albumin [Mass/Vol] 3.8 g/dL 3.2-5.5 [facility] Alkaline phosphatase [Enzyma tic activity/volume] in Serum or PlasmaOrdered By: Michel Venegas on 09-16-2022 ALP [Catalytic activity/Vol] 88 U/L 32-92 [facility] Amphetamine Screen Ql (U)Ord ered By: Michel Venegas on 09-16-2022 Amphetamines Ql (U) Negative Negative [facility] Aspartate aminotransferase [ Enzymatic activity/volume] in Serum or PlasmaOrdered By: Michel Venegas on 09-16-2022 AST [Catalytic activity/Vol] 21 U/L 10-42 [facility] Barbiturates [Presence] in U rineOrdered By: Michel Venegas on 09-16-2022 Barbiturates Ql (U) Negative Negative [facility] Basophils Auto (Bld) [#/Vol] Ordered By: Michel Venegas on 09-16-2022 Basophils (Bld) [#/Vol] 0.1 10*3/uL 0.0-0.2 [facility] Basophils/100 WBC Auto (Bld) Ordered By: Michel Venegas on 09-16-2022 Basophils/100 WBC (Bld) 0.9 % . F [facility] Benzodiazepines [Presence] i n UrineOrdered By: Michel Venegas on 09-16-2022 Benzodiazepines Ql (U) Positive Negative Fi [facility] Bilirubin.total [Mass/volume ] in Serum or PlasmaOrdered By: Michel Venegas on 09-16-2022 Bilirubin [Mass/Vol] 0.6 mg/dL 0.3-1.2 [facility] Bowel Disorders C[place] Atypical pANCA Negative Normal Negative [facility] Comment on above: Performed By: #### E SR, CMP, CRP, CBC #### [facility] [address] [place] [address] #### BOWEL CASC #### [facility] , Bowel Disorders Dayhoit Negative Normal Negative F [facility] Comment on above: Performed By: #### E SR, CMP, CRP, CBC #### [facility] [address] [place] [address] [place] #### BOWEL CASC #### [facility] , Note Normal . [facility] Comment on above: Result Comment: Sugg estive of Crohn's disease. Subsequent testing with the Crohn's Disease Prognostic Profile (585934) that includes antiglycan antibodies AMCA, ALCA, ACCA, and Marck may aid in the differentiation of clinical forms of CD and prognosis of disease progression. Performed at: - [facility] [id number] [place] Attendant: Saul Villanueva MD, Phone: [phone] PERFORMED BY: [place] [address] PATHOLOGIST SHADING PAINTER BONY DAVIS M.D. Performed By: #### E SR, CMP, CRP, CBC #### [facility] [address] [place] [address] [place] #### BOWEL CASC #### [facility] , Saccharomyces cerevisiae, IgG 38.4 High 0.0-24.9 [facility] Comment on above: Result Comment: Nega tive <20.0 Equivocal 20.1 - 24.9 Positive >or= 25.0 Performed By: #### E SR, CMP, CRP, CBC #### [facility] [address] [place] [address] [place] #### BOWEL CASC #### [facility] , C reactive protein [Mass/vol ume] in Serum or PlasmaOrdered By: Michel Venegas on 09-16-2022 CRP [Mass/Vol] 1.5 mg/dL 0.0-1.0 [facility] C-Reactive Proteinon 023 C-Reactive Protein 1.5 mg/dL High 0.0-1.0 [facility] Comment on above: Result Comment: PERF ORMED BY: [place] [address] PATHOLOGIST SHADING PAINTER BONY DAVIS M.D. Performed By: #### E SR, CMP, CRP, CBC #### [facility] [address] [place] [address] #### BOWEL CASC #### [facility] , Calcium [Mass/volume] in Ser um or PlasmaOrdered By: Michel Venegas on 09-16-2022 Calcium [Mass/Vol] 8.6 mg/dL 8.2-10.2 [facility] Cannabinoids [Presence] in U rine by Screen methodOrdered By: Michel Venegas on 09-16-2022 Cannabinoids Screen Ql (U) Positive Negative [facility] Comment on above: These are unconfirme d results and should not be used for legal purposes. Drug Cut-Off Concentration: AMPH 1000 ng/mL FOREIGN 200 ng/mL HONORIO 200 ng/mL COCM 300 ng/mL OP 300 ng/mL PCP 25 ng/mL THC 20 ng/mL Carbon dioxide, total [Moles /volume] in Serum or PlasmaOrdered By: Michel Venegas on 09-16-2022 CO2 [Moles/Vol] 26.1 mmol/L 22.0-30.0 [facility] Chloride [Moles/volume] in S jayshree or PlasmaOrdered By: Michel Venegas on 09-16-2022 Chloride [Moles/Vol] 102 mmol/L 95-114 [facility] Complete Blood Count Auto Di ffon 09-16-2022 Basophils (Bld) [#/Vol] 0.1 10*3/uL Normal 0.0-0.2 [facility] Comment on above: Performed By: #### E SR, CMP, CRP, CBC #### [facility] [address] [place] [address] [place] #### BOWEL CASC #### [facility] , Basophils/100 WBC (Bld) 0.9 % Normal . [facility] Comment on above: Performed By: #### E SR, CMP, CRP, CBC #### [facility] [address] [place] [address] [place] #### BOWEL CASC #### [facility] , Eosinophils (Bld) [#/Vol] 0.1 10*3/uL Normal 0.0-0.45 [facility] Comment on above: Performed By: #### E SR, CMP, CRP, CBC #### [facility] [address] [place] [address] [place] #### BOWEL CASC #### [facility] , Eosinophils/100 WBC (Bld) 0.8 % Normal . [facility] Comment on above: Performed By: #### E SR, CMP, CRP, CBC #### [facility] [address] [place] [address] [place] #### BOWEL CASC #### [facility] , Erythrocyte distribution width (RBC) [Ratio] 15.4 % High 11.9-15.3 [facility] Comment on above: Performed By: #### E SR, CMP, CRP, CBC #### [facility] [address] [place] [address] [place] #### BOWEL CASC #### [facility] , Hematocrit (Bld) [Volume fraction] 40.4 % Normal 34.0-46.4 [facility] Comment on above: Performed By: #### E SR, CMP, CRP, CBC #### [facility] [address] [place] [address] [place] #### BOWEL CASC #### [facility] , Hemoglobin (Bld) [Mass/Vol] 13.4 g/dL Normal 11.8-15.4 [facility] Comment on above: Performed By: #### E SR, CMP, CRP, CBC #### [address] #### BOWEL CASC #### [facility] , Lymphocytes (Bld) [#/Vol] 1.6 10*3/uL Normal 1.00-4.8 [facility] Comment on above: Performed By: #### E SR, CMP, CRP, CBC #### [address] #### BOWEL CASC #### [facility] , Lymphocytes/100 WBC (Bld) 21.7 % Normal . [facility] Comment on above: Performed By: #### E SR, CMP, CRP, CBC #### [address] #### BOWEL CASC #### [facility] , MCH (RBC) [Entitic mass] 30.0 pg Normal 24.7-34.3 [facility] Comment on above: Performed By: #### E SR, CMP, CRP, CBC #### [place] [address] [place] #### BOWEL CASC #### [facility] , MCV (RBC) [Entitic vol] 90.8 fL Normal 80-100 [facility] Comment on above: Performed By: #### E SR, CMP, CRP, CBC #### [place] [address] [place] #### BOWEL CASC #### [facility] , Mean Corpuscular HGB Conc 33.0 g/dL Normal 32.0-35.0 [facility] Comment on above: Performed By: #### E SR, CMP, CRP, CBC #### [facility] [address] [place] [address] #### BOWEL CASC #### [facility] , Monocytes (Bld) [#/Vol] 0.3 10*3/uL Normal 0.0-0.8 [facility] Comment on above: Performed By: #### E SR, CMP, CRP, CBC #### [facility] [address] [place] [address] [place] #### BOWEL CASC #### [facility] , Monocytes/100 WBC (Bld) 3.6 % Normal . [facility] Comment on above: Performed By: #### E SR, CMP, CRP, CBC #### [place] [address] [place] #### BOWEL CASC #### [facility] , Neutrophils (Bld) [#/Vol] 5.4 10*3/uL Normal 1.8-7.7 [facility] Comment on above: Performed By: #### E SR, CMP, CRP, CBC #### [address] #### BOWEL CASC #### [facility] , Neutrophils/100 WBC (Bld) 73.0 % Normal . [facility] Comment on above: Performed By: #### E SR, CMP, CRP, CBC #### [facility] [address] [place] [address] [place] #### BOWEL CASC #### [facility] , NRBC% 0.2 /100{WBC} Normal 0-0.5 [facility] Comment on above: Performed By: #### E SR, CMP, CRP, CBC #### [facility] [address] [place] [address] [place] #### BOWEL CASC #### [facility] , Platelet mean volume (Bld) [Entitic vol] 7.1 fL Normal 6.3-10.7 [facility] Comment on above: Performed By: #### E SR, CMP, CRP, CBC #### [facility] [address] [place] [address] #### BOWEL CASC #### [facility] , Platelets (Bld) [#/Vol] 442 10*3/uL Normal 150-450 [facility] Comment on above: Performed By: #### E SR, CMP, CRP, CBC #### [facility] [address] [place] [address] #### BOWEL CASC #### [facility] , RBC (Bld) [#/Vol] 4.45 10*6/uL Normal 3.60-5.00 [facility] Comment on above: Performed By: #### E SR, CMP, CRP, CBC #### [address] #### BOWEL CASC #### [facility] , WBC (Bld) [#/Vol] 7.4 10*3/uL Normal 3.8-11.6 [facility] Comment on above: Performed By: #### E SR, CMP, CRP, CBC #### [facility] [address] [place] [address] [place] #### BOWEL CASC #### [facility] , Comprehensive Metabolic Pane ken 09-16-2022 Albumin [Mass/Vol] 3.8 g/dL Normal 3.2-5.5 [facility] Comment on above: Performed By: #### E SR, CMP, CRP, CBC #### [facility] [address] [place] [address] [place] #### BOWEL CASC #### [facility] , Albumin/Globulin [Mass ratio] 1.5 {ratio} Normal [facility] Comment on above: Performed By: #### E SR, CMP, CRP, CBC #### [facility] [address] [place] [address] [place] #### BOWEL CASC #### [facility] , ALP [Catalytic activity/Vol] 88 U/L Normal 32-92 [facility] Comment on above: Performed By: #### E SR, CMP, CRP, CBC #### [facility] [address] [place] [address] [place] #### BOWEL CASC #### [facility] , ALT [Catalytic activity/Vol] 16 U/L Normal 10-60 [facility] Comment on above: Performed By: #### E SR, CMP, CRP, CBC #### [facility] [address] [place] [address] #### BOWEL CASC #### [facility] , Anion gap [Moles/Vol] 9.8 mmol/L Normal 6.0-15.0 [facility] Comment on above: Performed By: #### E SR, CMP, CRP, CBC #### [facility] [address] [place] [address] #### BOWEL CASC #### [facility] , AST [Catalytic activity/Vol] 21 U/L Normal 10-42 [facility] Comment on above: Performed By: #### E SR, CMP, CRP, CBC #### [facility] [address] [place] [address] [place] #### BOWEL CASC #### [facility] , Bilirubin [Mass/Vol] 0.6 mg/dL Normal 0.3-1.2 [facility] Comment on above: Performed By: #### E SR, CMP, CRP, CBC #### [facility] [address] [place] [address] [place] #### BOWEL CASC #### [facility] , Calcium [Mass/Vol] 8.6 mg/dL Normal 8.2-10.2 [facility] Comment on above: Performed By: #### E SR, CMP, CRP, CBC #### [facility] [address] [place] [address] [place] #### BOWEL CASC #### [facility] , Chloride [Moles/Vol] 102 mmol/L Normal 95-114 [facility] Comment on above: Performed By: #### E SR, CMP, CRP, CBC #### [facility] [address] [place] [address] [place] #### BOWEL CASC #### [facility] , CO2 [Moles/Vol] 26.1 mmol/L Normal 22.0-30.0 [facility] Comment on above: Performed By: #### E SR, CMP, CRP, CBC #### [address] #### BOWEL CASC #### [facility] , Creatinine [Mass/Vol] 0.53 mg/dL Normal 0.44-1.03 [facility] Comment on above: Performed By: #### E SR, CMP, CRP, CBC #### [facility] [address] [place] [address] #### BOWEL CASC #### [facility] , Creatinine Clr Calc Pharmacy 110.33 [facility] Comment on above: Performed By: #### E SR, CMP, CRP, CBC #### [facility] [address] [place] [address] [place] #### BOWEL CASC #### [facility] , Estimated GFR ( Alyce > 60 [facility] Comment on above: Result Comment: GFR estimated reference range: According to KDOQI guidelines, <60 ml/min/1.73m2 is sufficient to diagnose a patient with chronic kidney disease. Performed By: #### E SR, CMP, CRP, CBC #### [facility] [address] [place] [address] [place] #### BOWEL CASC #### [facility] , Estimated GFR (Non- Am > 60 Normal [facility] Comment on above: Performed By: #### E SR, CMP, CRP, CBC #### [place] [address] [place] #### BOWEL CASC #### [facility] , Globulin (S) [Mass/Vol] 2.5 g/dL Normal [facility] Comment on above: Performed By: #### E SR, CMP, CRP, CBC #### [place] [address] [place] #### BOWEL CASC #### [facility] , Glucose [Mass/Vol] 100 mg/dL Normal 70-100 [facility] Comment on above: Result Comment: [facility] Glucose Reference Range is dependent on time and content of last meal. Glucose of more than 200 mg/dL in a nonstressed, ambulatory subject supports the diagnosis of Diabetes Mellitus. ADA recommended reference range Performed By: #### E SR, CMP, CRP, CBC #### [place] [address] [place] #### BOWEL CASC #### [facility] , Potassium [Moles/Vol] 3.9 mmol/L Normal 3.5-5.1 [facility] Comment on above: Performed By: #### E SR, CMP, CRP, CBC #### [place] [address] [place] #### BOWEL CASC #### [facility] , Protein [Mass/Vol] 6.3 g/dL Normal 6.1-7.9 [facility] Comment on above: Performed By: #### E SR, CMP, CRP, CBC #### [place] [address] [place] #### BOWEL CASC #### [facility] , Sodium [Moles/Vol] 134 mmol/L Low 136-146 [facility] Comment on above: Performed By: #### E SR, CMP, CRP, CBC #### [address] [place] [address] [place] #### BOWEL CASC #### [facility] , Urea nitrogen [Mass/Vol] 4 mg/dL Low 05-07 [facility] Comment on above: Performed By: #### E SR, CMP, CRP, CBC #### [facility] [address] #### BOWEL CASC #### [facility] , Creatinine and Glomerular fi ltration rate.predicted panel (S/P/Bld)Ordered By: Michel Venegas on 09-16-2022 Creatinine [Mass/Vol] 0.53 mg/dL 0.44-1.03 [facility] Drug Screen,Urineon 09-16-19 Amphetamine Screen,Urine Negative Normal Negative [facility] Comment on above: Performed By: #### U RDS ####[place] [address] [place] Barbiturate Screen,Urine Negative Normal Negative [facility] Comment on above: Performed By: #### U RDS ####[place] [address] [place] Benzodiazepines Screen,Urine Positive High Negative [facility] Comment on above: Performed By: #### U RDS ####[address] Cannabinoid Screen,Urine Positive High Negative [facility] Comment on above: Result Comment: Thes e are unconfirmed results and should not be used for legal purposes. Drug Cut-Off Concentration: AMPH 1000 ng/mL FOREIGN 200 ng/mL HONORIO 200 ng/mL COCM 300 ng/mL OP 300 ng/mL PCP 25 ng/mL THC 20 ng/mL PERFORMED BY: [place] [address] PATHOLOGIST [employer]ADING PAINTER BONY DAVIS M.D. Performed By: #### U RDS ####[address] Cocaine Screen,Urine Negative Normal Negative [facility] Comment on above: Performed By: #### U RDS ####[facility] Opiate Screen,Urine Negative Normal Negative [facility] Comment on above: Performed By: #### U RDS ####[facility] Phencyclidine Screen,Urine Negative Normal Negative [facility] Comment on above: Performed By: #### U RDS ####[facility] [place] [address] Eosinophils Auto (Bld) [#/Vo l]Ordered By: Michel Venegas on 09-16-2022 Eosinophils (Bld) [#/Vol] 0.1 10*3/uL 0.0-0.45 [facility] Eosinophils/100 WBC Auto (Bl d)Ordered By: Michel Venegas on 09-16-2022 Eosinophils/100 WBC (Bld) 0.8 % . [facility] Erythrocyte Sedimentation Ra elena 09-16-2022 ESR (Bld) [Velocity] 13 mm/h Normal 0- [facility] Comment on above: Result Comment: PERF ORMED BY: [place] [address] PATHOLOGIST SHADING PAINTER BONY DAVIS M.D. Performed By: #### E SR, CMP, CRP, CBC #### [facility] [address] [place] [address] #### BOWEL CASC #### [facility] , Erythrocyte distribution wid th Auto (RBC) [Ratio]Ordered By: Michel Venegas on 09-16-2022 Erythrocyte distribution width (RBC) [Ratio] 15.4 % 11.9-15.3 [facility] Erythrocyte sedimentation ra te by Photometric methodOrdered By: Michel Venegas on 09-16-2022 ESR Photometric method (Bld) [Velocity] 13 mm/hr 0- [facility] Estimated glomerular filtrat ion rate (GFR) non- AmericanOrdered By: Michel Venegas on 09-16-2022 GFR/1.73 sq M.predicted among non-blacks MDRD (S/P/Bld) [Vol rate/Area] > 60 mL/Min [facility] Gliadin peptide+tissue trans glutaminase IgA+IgG Ab [Presence] in Serum by ImmunoassayOrdered By: Michel Venegas on 09-16-2022 Gliadin peptide+tissue transglutaminase IgA+IgG IA Ql (S) Negative Negative [facility] Globulin Calc (S) [Mass/Vol] Ordered By: Michel Venegas on 09-16-2022 Globulin (S) [Mass/Vol] 2.5 g/dL F [facility] Glucose [Mass/volume] in Ser um or PlasmaOrdered By: Michel Venegas on 09-16-2022 Glucose [Mass/Vol] 100 mg/dL 70-100 [facility] Comment on above: ADA recommended refe rence rangeRandom Glucose Reference Range is dependent on time and content of last meal. Glucose of more than 200 mg/dL in a nonstressed, ambulatory subject supports the diagnosis of Diabetes Mellitus. Hematocrit Auto (Bld) [Volum e fraction]Ordered By: Michel Venegas on 09-16-2022 Hematocrit (Bld) [Volume fraction] 40.4 % 34.0-46.4 [facility] Hemoglobin [Mass/volume] in BloodOrdered By: Michel Venegas on 09-16-2022 Hemoglobin (Bld) [Mass/Vol] 13.4 g/dL 11.8-15.4 [facility] Ken 09-16-2022 L - -------- Specimen: [id number] Received: 09/16/22 Status: JEANNIE Bettencourt Num: [id number] Spec Type: Surgical Subm Dr: Michel Venegas MD Tissues: A Stomach - Biopsy/Polyp (DUODENAL BX) B Stomach - Biopsy/Polyp (ANTRAL BX) C Stomach - Biopsy/Polyp (PATCHY COLITIS BX) Procedures: HE/6, Gross/Micro L4/3 -------- Age/ Patient Sex Location Account Attending Physician -------- Macie Cloud 47/F [id number] Michel Venegas MD -------- SPEC NUM: [id number] RECD: 09/16/[id number] STATUS: JEANNIE BETTENCOURT NUM: [id number] ANNAMARIE: 09/16/22-10[address] [facility] [address]: Michel Venegas MD ENTERED: 09/16/22-[address] [facility] [address]: JENNY TYPE: Surgical DEPT: S ENTERED BY: [id number] RECV BY: [id number] ORDERED: HE/6, Gross/Micro L4/3 ORDERED: HE/6, Gross/Micro L4/3 Pathological Diagnosis A. Small bowel, duodenum, biopsy: - Small intestinal mucosa negative for significant histopathologic changes. - NEGATIVE for celiac disease. B. Stomach, antrum, biopsy: - Chronic gastritis, mild, nonspecific. - Negative for Helicobacter pylori on H E stain. C. Colon, random, biopsy: -One fragment of colonic mucosa with surface hyperplasia suggestive of hyperplastic polyp. - Remaining fragments of colonic mucosa negative for significant histopathologic changes. - There is no evidence of acute, chronic or microscopic colitis. - Negative for epithelial dysplasia. Clinical Information Blood in stool, diarrhea, rule out sprue, rule out H. pylori -------- Specimen: [id number] Received: 09/16/22 Status: JEANNIE Bettencourt Num: [id number] Spec Type: Surgical Subm Dr: Michel Venegas MD Tissues: A Stomach - Biopsy/Polyp (DUODENAL BX) B Stomach - Biopsy/Polyp (ANTRAL BX) C Stomach - Biopsy/Polyp (PATCHY COLITIS BX) Procedures: HE/6, Gross/Micro L4/3 -------- Patient: Macie Cloud [id number] (Continued) -------- Specimen: [id number] Received: 09/16/22 (Continued) Signed (signature on file) Alexandra Angela MD 09/17/22 1146 -------- Specimen: [id number] Received: 09/16/22 Status: JEANNIE Bettencourt Num: [id number] Spec Type: Surgical Subm Dr: Michel Venegas MD Tissues: A Stomach - Biopsy/Polyp (DUODENAL BX) B Stomach - Biopsy/Polyp (ANTRAL BX) C Stomach - Biopsy/Polyp (PATCHY COLITIS BX) Procedures: HE/6, Gross/Micro L4/3 -------- Patient: Macie Cloud [id number] (Continued) -------- Specimen: [id number] Received: 09/16/22 (Continued) Gross Description A. Received in formalin labeled with the patient's name, number and duodenal biopsy rule out sprue is one fragment of soft ferreira tissue measuring 0.3 cm. Entirely submitted in one cassette labeled A1. B. Received in formalin labeled with the patient's name, number and antral biopsy for H. pylori is one fragment of soft ferreira tissue measuring 0.3 cm. Entirely submitted in one cassette labeled B1. C. Received in formalin labeled with the patient's name, number and patchy colitis are multiple fragments of soft ferreira tissue measuring 1.3 x 0.7 x 0.2 cm in aggregate. Entirely submitted in one cassette labeled C1. Microscopic Description A. Two glass slides with H E stained material have been examined. The microscopic findings support the above pathologic diagnosis. B. Two glass slides with H E stained material have been examined. The microscopic findings support the above pathologic diagnosis. C. Two glass slides with H E stained material have been examined. The microscopic findings support the above pathologic diagnosis. CPT Codes 62088?3 -------- -------- Specimen: [id number] Received: 09/16/22 Status: JEANNIE Yipradha Num: [id number] Spec Type: Surgical Subm Dr: Michel Venegas MD Tissues: A Stomach - Biopsy/Polyp (DUODENAL BX) B Stomach - Biopsy/Polyp (ANTRAL BX) C Stomach - Biopsy/Polyp (PATCHY COLITIS BX) Procedures: HE/6, Gross/Micro L4/3 ----- (more content not included)... Normal [facility] Laboratory - Drug toxicology Ordered By: Michel Venegas on 09-16-2022 Opiates Ql (U) Negative Negative [facility] Leukocytes [#/volume] correc rajani for nucleated erythrocytes in Blood by Automated counOrdered By: Michel Venegas on 09-16-2022 WBC corrected for nucl RBC Auto (Bld) [#/Vol] 7.4 10*3/uL 3.8-11.6 [facility] Lymphocytes Auto (Bld) [#/Vo l]Ordered By: Michel Venegas on 09-16-2022 Lymphocytes (Bld) [#/Vol] 1.6 10*3/uL 1.00-4.8 [facility] Lymphocytes/100 WBC Auto (Bl d)Ordered By: Michel Venegas on 09-16-2022 Lymphocytes/100 WBC (Bld) 21.7 % . [facility] MCH Auto (RBC) [Entitic mass ]Ordered By: Michel Venegas on 09-16-2022 MCH (RBC) [Entitic mass] 30.0 pg 24.7-34.3 [facility] MCHC Auto (RBC) [Mass/Vol]Or dered By: Michel Venegas on 09-16-2022 MCHC (RBC) [Mass/Vol] 33.0 g/dL 32.0-35.0 [facility] MCV Auto (RBC) [Entitic vol] Ordered By: Michel Venegas on 09-16-2022 MCV (RBC) [Entitic vol] 90.8 fL 80-100 [facility] Monocytes Auto (Bld) [#/Vol] Ordered By: Michel Venegas on 09-16-2022 Monocytes (Bld) [#/Vol] 0.3 10*3/uL 0.0-0.8 [facility] Monocytes/100 WBC Auto (Bld) Ordered By: Michel Venegas on 09-16-2022 Monocytes/100 WBC (Bld) 3.6 % . [facility] Neutrophil cytoplasmic Ab.pe rinuclear.atypical [Presence] in Serum by ImmunofluoresceOrdered By: Michel Venegas on 09-16-2022 Neutrophil cytoplasmic Ab.perinuclear.atypical IF Ql (S) Negative Negative [facility] Neutrophils Auto (Bld) [#/Vo l]Ordered By: Michel Venegas on 09-16-2022 Neutrophils (Bld) [#/Vol] 5.4 10*3/uL 1.8-7.7 [facility] Neutrophils/100 WBC Auto (Bl d)Ordered By: Michel Venegas on 09-16-2022 Neutrophils/100 WBC (Bld) 73.0 % . [facility] No Panel InformationOrdered By: Michel Venegas on 09-16-2022 Estimated GFR () > 60 mL/Min [facility] Comment on above: GFR estimated refere nce range: According to KDOQI guidelines, <60 ml/min/1.73m2 is sufficient to diagnose a patient with chronic kidney disease. Inflammatory Bowel Disease Interp See comment . [facility] Comment on above: Suggestive of Crohn' s disease. Subsequent [facility] with [facility] Prognostic Profile (973775) that includesantiglycan antibodies AMCA, ALCA, ACCA, and Marck may aidin the differentiation of clinical forms of CD andprognosis of disease progression.Performed at: [facility] [id number] Director: Saul Villanueva MD, Phone: [phone] Pharmacy Creatinine Clearance (Chem 110.33 [facility] Nucleated erythrocytes [Pres ence] in Blood by Automated countOrdered By: Michel Venegas on 09-16-2022 Nucleated RBC Auto Ql (Bld) 0.2 /100{WBC} 0-0.5 [facility] Phencyclidine Screen Ql (U)O rdered By: Michel Venegas on 09-16-2022 Phencyclidine Ql (U) Negative Negative [facility] Platelet mean volume Auto (B ld) [Entitic vol]Ordered By: Michel Venegas on 09-16-2022 Platelet mean volume (Bld) [Entitic vol] 7.1 fL 6.3-10.7 [facility] Platelets Auto (Bld) [#/Vol] Ordered By: Michel Venegas on 09-16-2022 Platelets (Bld) [#/Vol] 442 10*3/uL 150-450 [facility] Potassium [Moles/volume] in Serum or PlasmaOrdered By: Michel Venegas on 09-16-2022 Potassium [Moles/Vol] 3.9 mmol/L 3.5-5.1 [facility] Protein [Mass/volume] in Ser um or PlasmaOrdered By: Michel Venegas on 09-16-2022 Protein [Mass/Vol] 6.3 g/dL 6.1-7.9 [facility] RBC Auto (Bld) [#/Vol]Ordere d By: Michel Venegas on 09-16-2022 RBC (Bld) [#/Vol] 4.45 10*6/uL 3.60-5.00 [facility] Saccharomyces cerevisiae IgG serumOrdered By: Michel Venegas on 09-16-2022 Mauricio's yeast IgG Qn (S) 38.4 Units 0.0-24.9 [facility] Comment on above: Negative <20.0 Equiv ocal 20.1 - 24.9 Positive >or= 25.0 Serum or plasma alanine main otransferase measurement without P-5'-P (enzymatic activiOrdered By: Michel Venegas on 09-16-2022 ALT No additional P-5'-P [Catalytic activity/Vol] 16 U/L 10-60 [facility] Serum or plasma albumin/glob ulin mass ratioOrdered By: Michel Venegas on 09-16-2022 Albumin/Globulin [Mass ratio] 1.5 {ratio} [facility] Serum or plasma anion gap de terminationOrdered By: Michel Venegas on 09-16-2022 Anion gap [Moles/Vol] 9.8 mmol/L 6.0-15.0 [facility] Sodium [Moles/volume] in Ser um or PlasmaOrdered By: Michel Venegas on 09-16-2022 Sodium [Moles/Vol] 134 mmol/L 136-146 [facility] Urea nitrogen [Mass/volume] in Serum or PlasmaOrdered By: Michel Venegas on 09-16-2022 Urea nitrogen [Mass/Vol] 4 mg/dL 9-23 [facility] Urine cocaine detectionOrder ed By: Michel Venegas on 09-16-2022 Cocaine Ql (U) Negative Negative [facility] WBC Auto (Bld) [#/Vol]Ordere d By: Michel Venegas on 09-16-2022 WBC (Bld) [#/Vol] 7.4 10*3/uL 3.8-11.6 [facility] CNOVon 09-13-2022 CNOV Office Visit (SPNSMN ) MACIE CLOUD ([id number]) 1975 F Date Time Provider Department 09/13/22 1:40 PM TOO HUGHES SPNSMN During your visit today, we recorded the following information about you: Pulse Respiration Blood pressure Weight 78/minute 16/minute 145/74 57.2 kg Height 1.702 m Too Hughes MD 09/13/2022 2:50 PM Signed SPINE SURGERY OUTPATIENT CONSULT This is an in-person visit. SERVICE DATE: 09/13/2022 PCP: Cristiano Graham Sr, MD REFERRING PROVIDER: Lei Martinez [facility] [id number] Consult requested for an opinion regarding the evaluation and treatment of low back pain. My final impression and recommendations will be communicated back to the requesting physician by way of the shared medical record or letter via US mail. SUBJECTIVE Macie Cloud is a 47 year old female presenting with daughter. CHIEF COMPLAINT: LBP, bilateral leg pain; neck pain and left arm pain Numbness in left arm doesn't go away Leg pain intermittent; 500 feet when pain is bad walks with walker or uses wheelchair HISTORY OF PRESENT ILLNESS PRECIPITATING EVENT: 202012-[address] Bib Alvarez; revised fusion L3-L5 did have relief of symptoms; 2 month after she fell symtpoms return DURATION OF SYMPTOMS: Greater Than 1 Year PAIN EVALUATION 09/07/2022 1544 09/13/2022 1315 Pain Level: 8 9 Pain Location: Back-Lower Neck Lower back, upper back, right leg and right toes Description: Aching;Burning;Radiat ing;Shooting;Sore;Sta bbing;Stiffness;Throb alonso Burning;Aching;Sharp; Numbness;Stabbing/Not Incision;Sore;Pressur e Ulcer/Injury Duration Amount of Time: 24 2 Duration Units: Hours Years Frequency: Continuous Continuous Intervention/Comfort measure: Relaxation;Cold;Heat; Positioning;Rocking/h olding;Spinal Cord Stimulator Medication;Emotional Support/Reassurance;E xercise;Heat;Cold;The rapeutic techniques-CPRP;Liborio w support;Reposition Comments: It hurts all the time if I stand,sit, lay to long it hurts if I try to do anything like take a shower,or clean it kills me -- Aggravating Factors: Flexion, Change of position (sit to stand), Standing, Walking, Driving (riding in a car), Entering/exiting a car Alleviating Factors: Medications, Heat application, Cold application, Lying supine Pain Ratio: Pain in the back and leg(s) is equal, Pain in the neck is greater than in the arm AMBULATORY STATUS: Impaired Community Distances ANTIPLATELET OR ANTICOAGULATION STATUS: No ACTIVE PROBLEM LIST Copd (Chronic Obstructive Pulmonary Disease) ([facility]) Current Smoker Neck Pain S/P Cervical Spinal Fusion Anxiety and Depression Iron Deficiency Anemia B12 Deficiency PAST MEDICAL HISTORY Diagnosis Date Anemia 10/[address] Cristiano Graham Anxiety and depression COPD (chronic obstructive pulmonary disease) ([facility]) Current smoker Neck pain S/P cervical spinal fusion PAST SURGICAL HISTORY Procedure Laterality Date APPENDECTOMY HX BACK SURGERY HX HYSTERECTOMY HX NECK SURGERY HX TONSILLECTOMY HX FAMILY HISTORY Problem Relation Age of Onset Arthritis Mother Arthritis Father Social History Tobacco Use Smoking status: Every Day Packs/day: 2.00 Years: 29.00 Pack years: 58.00 Types: Cigarettes Smokeless tobacco: Never Substance Use Topics Alcohol use: Yes Comment: social ALLERGIES No Known Allergies MEDICATIONS: tiZANidine (ZANAFLEX) 4 mg tablet take 2 to 3 tablets by mouth at bedtime if needed cyanocobalamin (VITAMIN B-12) 1,000 mcg/mL Inject 1 mL subcutaneously once every month. omeprazole (PRILOSEC) 20 mg capsule 40 mg. rOPINIRole (REQUIP) 1 mg tablet Take 1 mg by mouth. gabapentin (NEURONTIN) 300 mg capsule Take 300 mg by mouth three times daily. lisinopril-hydroCHLOR Othiazide (PRINZIDE,ZESTORETIC) 10-12.5 mg per tablet Take 1 tablet by mouth once daily. amitriptyline (ELAVIL) 75 mg tablet Take by mouth daily at bedtime. amLODIPine-benazepril (LOTREL) 10-20 mg per capsule buprenorphine-nalOXon e SL (SUBOXONE) 8-2 mg subl Dissolve under the tongue. cariprazine (VRAYLAR) 4.5 mg capsule take 1 capsule by mouth once daily cyclobenzaprine (FLEXERIL) 10 mg tablet Take 10 mg by mouth. dexAMETHasone (DECADRON) 2 mg tablet take 3 tablets by mouth daily for 3 days then 2 for 3 days then 1 for 3 days diclofenac, EC, (VOLTAREN) 50 mg EC tablet Take 50 mg by mouth three times daily. busPIRone (BUSPAR) 15 mg tablet Take 15 mg by mouth three times daily. REVIEW OF SYSTEMS: PAIN ASSESSMENT: See HPI. Patient Entered Questionnaires Spine Questions 07/29/2022 07/30/2022 09/07/2022 Pain Location: Lower back - Lower back Pain Duration: - 1 to 5 years - Pain over last 6 months: - Every day or nearly every day in the past 6 months - Symptoms from neck/cervical spine: Yes - Yes Employment Status: - Disabled due to back pain, permanently (more content not included)... Normal [facility] No Panel Informationon 09-13 [facility] XR SCOLIOSIS 2V PA STAND/LAT on 09-13-2022 XR SCOLIOSIS 2V PA STAND/LAT * * *Final Report* * * DATE OF EXAM: Sep 13 2022 3:02PM AMADEO [id number] - XR SCOLIOSIS 2V PA STAND/LAT / PROCEDURE REASON: Spinal stenosis of cervical region * * * * Physician Interpretation * * * * XR SCOLIOSIS 2V PA STAND/LAT HISTORY: . Spinal stenosis of cervical region . TECHNIQUE: AP and lateral scoliosis series (8 total films). COMPARISON: 06/22/2021 cervical spine x-rays and 03/04/2021 lumbar spine x-rays RESULT: Counting reference: Lumbosacral junction. For the purposes of this report, L5-S1 is considered the last lumbar type disc space and L4-5 is considered the level of the iliac crest. There are postsurgical changes involving the cervical and lumbar spine. This includes posterior fusion C2-C5 along with anterior fusion C4-C6 within the cervical spine. Posterior lumbar interbody fusion L3-L5 with intact hardware and solid bony fusion. There is mild scoliosis of the lumbar spine with the apex centered at L2-L3. No acute fracture or compression deformity is identified. Visualized lungs are clear. IMPRESSION: Posterior lumbar interbody fusion L3-L5 with intact hardware and solid bony fusion. Postsurgical changes cervical spine extending from C2 through C6 as described. Mild dextroscoliosis lumbar spine. Veterinarian Helper: PSCB Transcribe Date/Time: Sep 13 2022 3:18P Dictated by : JUAN NATONIO MONTES MD This examination was interpreted and the report reviewed and electronically signed by: JUAN ANTONIO MONTES MD on Sep 13 2022 3:22PM EST [id number] Normal [facility] CBC AUTO DIFFon 08-04-2022 BASO # 0.0 103/ul Normal 0.0-0.1 [facility] Comment on above: Performed By: #### C BC #### [facility] [address] [place] [address] Dr. Kimmy Albert Basophils/100 WBC (Bld) 0.4 % Normal 0.2-2.0 [facility] Comment on above: Performed By: #### C BC #### [facility] [address] [place] [address] Dr. Kimmy Albert EO # 0.1 103/ul Normal 0.0-0.7 [facility] Comment on above: Performed By: #### C BC #### [facility] [address] [place] [address] Dr. Kimmy Albert Eosinophils/100 WBC (Bld) 1.3 % Normal 0.9-7.0 [facility] Comment on above: Performed By: #### C BC #### [facility] [address] [place] [address] Dr. Kimmy Albert Erythrocyte distribution width (RBC) [Ratio] 13.6 % Normal 11.0-15.0 [facility] Comment on above: Performed By: #### C BC #### [facility] [address] [place] [address] Dr. Kimmy Albert Hematocrit (Bld) [Volume fraction] 39.5 % Normal 36.0-48.0 [facility] Comment on above: Performed By: #### C BC #### [facility] [address] [place] [address] Dr. Kimmy Albert Hemoglobin (Bld) [Mass/Vol] 13.1 g/dL Normal 12.0-16.0 [facility] Comment on above: Performed By: #### C BC #### [facility] [address] [place] [address] Dr. Kimmy Albert IG # 0.01 10e3/ul Normal 0.00-0.03 [facility] Comment on above: Performed By: #### C BC #### [facility] [address] [place] [address] Dr. Kimmy Albert IG % 0.1 % Normal 0.0-0.5 [facility] Comment on above: Performed By: #### C BC #### [facility] [address] [place] [address] Dr. Kimmy Albert LYMPH # 3.1 103/ul Normal 1.2-3.8 [facility] Comment on above: Performed By: #### C BC #### [facility] [address] [place] [address] Dr. Kimmy Albert Lymphocytes/100 WBC (Bld) 43.7 % Normal 20.5-60.0 [facility] Comment on above: Performed By: #### C BC #### [facility] [address] [place] [address] Dr. Kimmy Albert MANUAL DIFF REQ NO Normal [facility] Comment on above: Performed By: #### C BC #### [facility] [address] [place] [address] Dr. Kimmy Albert MCH (RBC) [Entitic mass] 30.5 pg Normal 26.7-34.0 [facility] Comment on above: Performed By: #### C BC #### [facility] [address] [place] [address] Dr. Kimmy Albert MCHC (RBC) [Mass/Vol] 33.2 g/dL Normal 29.9-35.2 [facility] Comment on above: Performed By: #### C BC #### [facility] [address] [place] [address] Dr. Kimmy Albert MCV (RBC) [Entitic vol] 92.1 fL Normal 81.0-99.0 [facility] Comment on above: Performed By: #### C BC #### [facility] [address] [address] [address] Kimmy Albert MONO # 0.3 103/ul Normal 0.3-0.8 [facility] Comment on above: Performed By: #### C BC #### [facility] [address] [address] [address] Kimmy Albert Monocytes/100 WBC (Bld) 4.1 % Normal 1.7-12.0 [facility] Comment on above: Performed By: #### C BC #### [facility] [address] [place] [address] Dr. Kimmy Albert NEUT # 3.6 103/ul Normal 1.4-6.5 [facility] Comment on above: Performed By: #### C BC #### [facility] [address] [place] [address] Dr. Kimmy Albert Neutrophils/100 WBC (Bld) 50.4 % Normal 43.0-75.0 [facility] Comment on above: Performed By: #### C BC #### [facility] [address] [place] [address] Dr. Kimmy Albert Platelet mean volume (Bld) [Entitic vol] 10.0 fL Normal 9.5-13.5 [facility] Comment on above: Performed By: #### C BC #### [facility] [address] [place] [address] Dr. Kimmy Albert PLT 149 103/ul Critically low 150-450 [facility] Comment on above: Performed By: #### C BC #### [facility] [address] [place] [address] Dr. Kimmy Albert RBC 4.29 106/ul Normal 4.20-5.40 [facility] Comment on above: Performed By: #### C BC #### [facility] [address] [place] [address] Dr. Kimmy Albert WBC 7.1 103/ul Normal 4.0-11.0 [facility] Comment on above: Performed By: #### C BC #### [facility] [address] [place], [place] [address] Dr. Kimmy Mcnelil 08-04-2022 CNPN Telephone (SPNSMN) MACIE CLOUD ([id number]) 1975 F Date Time Provider Department 08/04/22 LEI MARTINEZ HANANEMN During your visit today, we recorded the following information about you: Lei Martinez PA-C 08/04/2022 3:26 PM Signed Contacted patient, discussed current lumbar imaging, had only MRI done, CT was denied by insurance MRI shows supra and sub adjacent degeneration, severe R FS at L5-S1 may explain her severe R leg pain, as the pain correlates to this level She did present to ED today and they did perform a CT lumbar and pelvis while in the ED, she will have these studies placed on a CD At this time, recommend surgical consult with Dr. Hughes to determine if any further surgery would be needed and to determine if previous fusion is fused. Will coordinate consult with Dr. Hughes, patient will bring CD of CT lumbar to the appointment Lei Martinez PA-C Spine Surgery Allergies As of Date: 08/04/2022 (No Known Allergies) Date Reviewed: 01/23/2021 Reviewed by: Renee Fishman APRN.[facility] - Fully Assessed Reason for Visit: Patient Update [1234] Prescriptions as of 08/12/2022 - cyanocobalamin (VITAMIN B-12) 1,000 mcg/mL Inject 1 mL subcutaneously once every month. - amLODIPine-benazepril (LOTREL) 10-20 mg per capsule - buprenorphine-nalOXon e SL (SUBOXONE) 8-2 mg subl Dissolve under the tongue. - cariprazine (VRAYLAR) 4.5 mg capsule take 1 capsule by mouth once daily - cyclobenzaprine (FLEXERIL) 10 mg tablet Take 10 mg by mouth. - dexAMETHasone (DECADRON) 2 mg tablet take 3 tablets by mouth daily for 3 days then 2 for 3 days then 1 for 3 days - diclofenac, EC, (VOLTAREN) 50 mg EC tablet Take 50 mg by mouth three times daily. - omeprazole (PRILOSEC) 20 mg capsule 40 mg. - rOPINIRole (REQUIP) 1 mg tablet Take 1 mg by mouth. - gabapentin (NEURONTIN) 300 mg capsule Take 300 mg by mouth three times daily. - lisinopril-hydroCHLOR Othiazide (PRINZIDE,ZESTORETIC) 10-12.5 mg per tablet Take 1 tablet by mouth once daily. - busPIRone (BUSPAR) 15 mg tablet Take 15 mg by mouth three times daily. - amitriptyline (ELAVIL) 75 mg tablet Take by mouth daily at bedtime. Problem List As Of Date 08/04/2022 Noted Resolved COPD (chronic obstructive pulmonary disease) (H*06/30/2017 Current smoker [F17.200] 06/30/2017 Neck pain [M54.2] 06/30/2017 S/P cervical spinal fusion [Z98.1] Anxiety and depression [F41.9, F32.A] Iron deficiency anemia [D50.9] 11/11/2020 B12 deficiency [E53.8] 11/11/2020 Encounter Status:Closed by CARLOS CARRERA on 08/12/22 Normal [facility] CRPon 08-04-2022 CRP [Mass/Vol] mg/L Normal <=1.0 [facility] Comment on above: Performed By: #### B MP, CRP #### [facility] [address] [address] [address] CHEST WO CONon 08-04-2022 CT CHEST WO CON EXAM: CT CHEST WO CO N 08/04/2022 5:02 AM EST OH001 CLINICAL STATEMENT: Pain COMPARISON: No prior studies are available at the time of dictation. TECHNIQUE: Helically acquired images were obtained of the chest without IV contrast. AEC is utilized. 2-D reconstructed images are provided. FINDINGS: There is no aortic aneurysm. The heart is not enlarged. There is no pericardial effusion or thickening. There is no enlarged mediastinal or hilar adenopathy. Diffuse chronic emphysematous lung changes. Right basilar atelectasis. No acute airspace disease. There are no pleural effusions. There are no enlarged (>3 mm) pulmonary nodules. There is no pneumothorax. There are no endobronchial lesions seen. The thyroid is homogeneous. No acute fracture. Postsurgical changes lower cervical spine. There are no destructive bone lesions identified. Screening images of the upper abdomen are grossly unremarkable. IMPRESSION: No acute trauma-related abnormality. FOLLOW-UP: Follow-up as clinically indicated. Electronically authenticated by: ALOK COELHO Date: 2022-08-04 06:43 Normal [facility] CT CSPINE WO CONon [address] CSPINE WO CON CT CSPINE WO CON INDICATION: 47 years old; Female . CLINICAL HISTORY: Pain TECHNIQUE: CT imaging of the cervical spine was performed. IV contrast: None. Dose reduction techniques were achieved by using automated exposure control and/or adjustment of mA and/or kV according to patient size and/or use of iterative reconstruction technique. COMPARISON: Cervical MRI dated 08/22/2019. Cervical MRI dated 05/25/2017. FINDINGS: POSTOPERATIVE CHANGES: There is anterior and posterior postoperative changes noted. ACDF with solid trabeculated bony fusion is seen at C4-C5 and C5-C6. There is bony overgrowth associated with the ACDF plate with pseudoarthrosis associated with the superior aspect of the plate and the disc space at C3-C4 and bulky bridging osteophyte formation with pseudoarthrosis associated with the inferior aspect of the plate and the adjacent C6-C7 disc space. Posterior fusion is noted. There is decompressive laminectomy with pedicle screw and bar fixation extending from C2 through C5. There is solid trabeculated bony fusion of the facets at the levels from C2 through C5 on the left and C2 through C4 on the right.. The construct is intact. No disruption is seen. ALIGNMENT: There is nonspecific straightening the normal cervical curve. This is consistent with multilevel fusion. COMPRESSION FRACTURES: No fracture or vertebral body collapse is seen. No asymmetric widening of the nonfused facets is seen. PREVERTEBRAL SOFT TISSUES: Normal. CRANIOCERVICAL JUNCTION: There is a normal relationship of the occipital condyles, lateral masses of C1, and articular surfaces of C2. The base of the dens and body of C2 are intact. There is narrowing of the predental space with sclerosis and spurring arising from the dens and C1. POSTERIOR FOSSA: Cerebellar tonsils are above the foramen magnum. There is thickening of the transverse ligament with mild narrowing of the CSF space anterior the cervical medullary junction. Disc levels: C2-C3: Disc space narrowing is seen. No focal disc herniation or bulging is noted. The central canal and neural foramina are patent. C3-C4: Postoperative changes posteriorly. Pseudoarthrosis with the superior aspect of the ACDF plate anteriorly. Uncovertebral joint degeneration. Mild foraminal stenosis. C4-C5: Postoperative changes as described above. C5-C6: Postoperative changes as described above. C6-C7: Disc space narrowing. Endplate osteophyte formation. Facet degeneration. Mild central canal stenosis. Neural foramina patent. C7-T1: Vacuum disc degeneration. Uncovertebral joint degeneration and facet degeneration which is worse on the left than the right. Moderate to severe left foraminal stenosis. Right neural foramen is patent. UPPER THORACIC SPINE: No disc herniation. No spinal canal or foraminal narrowing. OTHER: No thyroid nodule or adenopathy. IMPRESSION: 1. Multilevel postoperative and degenerative changes. No acute fracture is seen. Please see the detailed discussion of the individual levels in the body of this report. Please also see the report of the CT chest and lumbar spine. Electronically authenticated by: LEE MARTINEZ Date: 2022-08-04 06:40 Normal [facility] CT LSPINE WO CONon 2 CT LSPINE WO CON EXAM: CT LSPINE WO CON 08/04/2022 5:02 AM EST OH001 CLINICAL STATEMENT: Pain COMPARISON: No prior studies are available at the time of dictation. TECHNIQUE: Helically acquired images were obtained of the lumbar spine without contrast. AEC is utilized. 2D reformatted images were reviewed FINDINGS: Posterior decompression at L3, L4 and L5. Straightening of the normal lordotic curvature of the lumbosacral spine. There is no evidence of fracture or dislocation. Diffuse osteopenia. There is no significant osseous narrowing of the central canal. There are no discrete paraspinal masses or collections. IMPRESSION: Posterior decompression at L3, L4 and L5. Straightening of the normal lordotic curvature of the lumbosacral spine. No acute fracture or dislocation FOLLOW-UP: Follow-up as clinically indicated. Electronically authenticated by: ALOK COELHO Date: 2022-08-04 06:47 Normal [facility] CT PELVIS WO CONon 2 CT PELVIS WO CON EXAMINATION: CT PELVIS WO CON HISTORY: Pain ; bilateral hip, groin, and left leg pain since falling down steps 4 days ago COMPARISON: XR sacrum and coccyx 04/04/2017 TECHNIQUE: Axial, Coronal, and Sagittal CT images obtained without IV contrast. Dose reduction techniques were achieved by using automated exposure control and/or adjustment of mA and/or kV according to patient size and/or use of iterative reconstruction technique. FINDINGS: BOWEL: No abnormality of the visible bowl. LYMPH NODES: No adenopathy. URINARY BLADDER: No visible focal wall thickening, lesion, or calculus. PELVIC ORGANS: Hysterectomy. ANTERIOR WALL: No hernia. BONES: No fracture or dislocation. Posterior mechanical fusion of lower lumbar spine and intervertebral disc spacer L4-L5. OTHER: Moderate marked atherosclerotic disease of the distal aorta and common iliac arteries. IMPRESSION: 1. No acute bone abnormality. Prior surgical changes of lower lumbar spine. 2. No appreciable acute soft tissue abnormality. 3. Moderate-marked atherosclerotic disease; greater than expected for patient's age. Electronically authenticated by: ERIC HE Date: 2022-08-04 07:19 Normal [facility] CT TSPINE WO CONon 2 CT TSPINE WO CON EXAM: CT TSPINE WO CON 08/04/2022 5:02 AM EST OH001 CLINICAL STATEMENT: Pain COMPARISON: No prior studies are available at the time of dictation. TECHNIQUE: Helically acquired images were obtained of the thoracic spine without contrast. AEC is utilized. 2D reformatted images were reviewed FINDINGS: There is normal anatomic alignment. There is no evidence of fracture or dislocation. There is no significant osseous narrowing of the central canal. Diffuse osteopenia. There are no discrete paraspinal masses or collections. Diffuse chronic emphysematous lung changes. IMPRESSION: No acute fracture or dislocation Diffuse osteopenia. Diffuse chronic emphysematous lung changes. FOLLOW-UP: Follow-up as clinically indicated. Electronically authenticated by: ALOK COELHO Date: 2022-08-04 06:26 Normal [facility] PROF CHEM 8 (BAS METB)on Anion gap [Moles/Vol] 11.7 mmol/L Normal [facility] Comment on above: Performed By: #### B MP, CRP #### [facility] [address] [address] [address] Kimmy Albert Calcium [Mass/Vol] 8.9 mg/dL Normal 8.5-10.1 [facility] Comment on above: Performed By: #### B MP, CRP #### [facility] [address] [address] [address] Kimmy Albert Chloride [Moles/Vol] 99 mmol/L Normal 98-107 [facility] Comment on above: Performed By: #### B MP, CRP #### [facility] [address] [address] [address] Kimmy Albert CO2 [Moles/Vol] 28.9 mmol/L Normal 21.0-32.0 [facility] Comment on above: Performed By: #### B MP, CRP #### [facility] [address] [place] [address] Dr. Kimmy Albert Creatinine [Mass/Vol] 0.94 mg/dL Normal 0.55-1.02 [facility] Comment on above: Performed By: #### B MP, CRP #### [facility] [address] [place] [address] Dr. Kimmy Albert EGFR-AF KOSOVAN >60 Normal >=60 [facility] Comment on above: Performed By: #### B MP, CRP #### [facility] [address] [place] [address] Dr. Kimmy Albert EGFR-NON AF KOSOVAN >60 Normal >=60 [facility] Comment on above: Performed By: #### B MP, CRP #### [facility] [address] [place] [address] Dr. Kimmy Albert Glucose [Mass/Vol] 85 mg/dL Normal 74-106 [facility] Comment on above: Performed By: #### B MP, CRP #### [facility] [address] [place] [address] Dr. Kimmy Albert Potassium [Moles/Vol] 3.6 mmol/L Normal 3.5-5.1 [facility] Comment on above: Performed By: #### B MP, CRP #### [facility] [address] [address] [address] Kimmy Albert Sodium [Moles/Vol] 136 mmol/L Normal 136-145 [facility] Comment on above: Performed By: #### B MP, CRP #### [facility] [address] [address] [address] Kimmy Albert Urea nitrogen [Mass/Vol] 9.0 mg/dL Normal 7.0-18.0 [facility] Comment on above: Performed By: #### B MP, CRP #### [facility] [address] [address] [address] Kimmy Albert Urea nitrogen/Creatinine [Mass ratio] 9.6 mg/mg Normal [facility] Comment on above: Performed By: #### B MP, CRP #### [facility] [address] [address] [address] Kimmy Albert SED RATE [facility] 2021 SED RATE 14 mm/hr Normal <=20 [facility] Comment on above: Performed By: #### S EDR #### [facility] [address] [address] [address] Kimmy Mcneill 07-30-2022 GERMAINE Telephone (YULIETQ) MACIE CLOUD ([id number]) 1975 F Date Time Provider Department 07/30/22 LEI MARTINEZ During your visit today, we recorded the following information about you: Nicolasa Wolff Hvac Refrigeration Technician 07/30/2022 11:12 AM Signed pt had 10:30 VV today with provider. Pt has trouble connecting. Pt requesting a phone call. Call back: [phone] Doris Turner 08/02/2022 9:57 AM Signed Patient is calling in about info below Allergies As of Date: 07/30/2022 (No Known Allergies) Date Reviewed: 01/23/2021 Reviewed by: Renee Fishman APRN.DRIVER LICENSE EXAMINER - Fully Assessed Reason for Visit: Appointment [186] Prescriptions as of 08/12/2022 - cyanocobalamin (VITAMIN B-12) 1,000 mcg/mL Inject 1 mL subcutaneously once every month. - amLODIPine-benazepril (LOTREL) 10-20 mg per capsule - buprenorphine-nalOXon e SL (SUBOXONE) 8-2 mg subl Dissolve under the tongue. - cariprazine (VRAYLAR) 4.5 mg capsule take 1 capsule by mouth once daily - cyclobenzaprine (FLEXERIL) 10 mg tablet Take 10 mg by mouth. - dexAMETHasone (DECADRON) 2 mg tablet take 3 tablets by mouth daily for 3 days then 2 for 3 days then 1 for 3 days - diclofenac, EC, (VOLTAREN) 50 mg EC tablet Take 50 mg by mouth three times daily. - omeprazole (PRILOSEC) 20 mg capsule 40 mg. - rOPINIRole (REQUIP) 1 mg tablet Take 1 mg by mouth. - gabapentin (NEURONTIN) 300 mg capsule Take 300 mg by mouth three times daily. - lisinopril-hydroCHLOR Othiazide (PRINZIDE,ZESTORETIC) 10-12.5 mg per tablet Take 1 tablet by mouth once daily. - busPIRone (BUSPAR) 15 mg tablet Take 15 mg by mouth three times daily. - amitriptyline (ELAVIL) 75 mg tablet Take by mouth daily at bedtime. Problem List As Of Date 07/30/2022 Noted Resolved COPD (chronic obstructive pulmonary disease) (H*06/30/2017 Current smoker [F17.200] 06/30/2017 Neck pain [M54.2] 06/30/2017 S/P cervical spinal fusion [Z98.1] Anxiety and depression [F41.9, F32.A] Iron deficiency anemia [D50.9] 11/11/2020 B12 deficiency [E53.8] 11/11/2020 Encounter Status:Closed by CARLOS CARRERA on 08/12/22 [facility] Charito 07-21-2022 GERMAINE Telephone (NIQ) MANUELAMACIE ([id number]) 1975 F Date Time Provider Department 07/21/22 LEI MARTINEZ During your visit today, we recorded the following information about you: Doris Turner 07/21/2022 2:16 PM Signed Received the following record(s) via fax. -MRI L spine wo, Xray, MRI L spine wo/w(report and CD) Date 06/25/22 Record(s) scanned into pt's chart. Doris Menjivar RN 07/28/2022 9:13 AM Signed Neuro SPINE CARE COORDINATION QUICK NOTE Patient scheduled for virtual visit with CHIP Fine for 07/30/2022 at 10:30 am. Ashly Menjivar RN Physics Technician, Spine Health Allergies As of Date: 07/21/2022 (No Known Allergies) Date Reviewed: 01/23/2021 Reviewed by: Renee Fishman APRN.DRIVER LICENSE EXAMINER - Fully Assessed Reason for Visit: Results [95] Prescriptions as of 07/28/2022 - cyanocobalamin (VITAMIN B-12) 1,000 mcg/mL Inject 1 mL subcutaneously once every month. - amLODIPine-benazepril (LOTREL) 10-20 mg per capsule - buprenorphine-nalOXon e SL (SUBOXONE) 8-2 mg subl Dissolve under the tongue. - cariprazine (VRAYLAR) 4.5 mg capsule take 1 capsule by mouth once daily - cyclobenzaprine (FLEXERIL) 10 mg tablet Take 10 mg by mouth. - dexAMETHasone (DECADRON) 2 mg tablet take 3 tablets by mouth daily for 3 days then 2 for 3 days then 1 for 3 days - diclofenac, EC, (VOLTAREN) 50 mg EC tablet Take 50 mg by mouth three times daily. - omeprazole (PRILOSEC) 20 mg capsule 40 mg. - rOPINIRole (REQUIP) 1 mg tablet Take 1 mg by mouth. - gabapentin (NEURONTIN) 300 mg capsule Take 300 mg by mouth three times daily. - lisinopril-hydroCHLOR Othiazide (PRINZIDE,ZESTORETIC) 10-12.5 mg per tablet Take 1 tablet by mouth once daily. - busPIRone (BUSPAR) 15 mg tablet Take 15 mg by mouth three times daily. - amitriptyline (ELAVIL) 75 mg tablet Take by mouth daily at bedtime. Problem List As Of Date 07/21/2022 Noted Resolved COPD (chronic obstructive pulmonary disease) (H*06/30/2017 Current smoker [F17.200] 06/30/2017 Neck pain [M54.2] 06/30/2017 S/P cervical spinal fusion [Z98.1] Anxiety and depression [F41.9, F32.A] Iron deficiency anemia [D50.9] 11/11/2020 B12 deficiency [E53.8] 11/11/2020 Encounter Status:Closed by [facility]SH[facility] MAC[facility]OU[facility] ([id number]) 1975 F Date Time Provider Department 07/21/22 LEI MARTINEZ During your visit today, we recorded the following information about you: Doris Turner 07/21/2022 9:33 AM Signed Received the following record(s) via fax. -Electromyographic report Date 08/26/21 Record(s) scanned into pt's chart. Doris Blanco RN 07/22/2022 11:13 AM Signed Noted. Forwarded to HARRY via other Encounter. Adolph Blanco RN Allergies As of Date: 07/21/2022 (No Known Allergies) Date Reviewed: 01/23/2021 Reviewed by: Renee Fishman APRN.DRIVER LICENSE EXAMINER - Fully Assessed Reason for Visit: Received Outside Medical Records [[id number]] Prescriptions as of 07/22/2022 - cyanocobalamin (VITAMIN B-12) 1,000 mcg/mL Inject 1 mL subcutaneously once every month. - amLODIPine-benazepril (LOTREL) 10-20 mg per capsule - buprenorphine-nalOXon e SL (SUBOXONE) 8-2 mg subl Dissolve under the tongue. - cariprazine (VRAYLAR) 4.5 mg capsule take 1 capsule by mouth once daily - cyclobenzaprine (FLEXERIL) 10 mg tablet Take 10 mg by mouth. - dexAMETHasone (DECADRON) 2 mg tablet take 3 tablets by mouth daily for 3 days then 2 for 3 days then 1 for 3 days - diclofenac, EC, (VOLTAREN) 50 mg EC tablet Take 50 mg by mouth three times daily. - omeprazole (PRILOSEC) 20 mg capsule 40 mg. - rOPINIRole (REQUIP) 1 mg tablet Take 1 mg by mouth. - gabapentin (NEURONTIN) 300 mg capsule Take 300 mg by mouth three times daily. - lisinopril-hydroCHLOR Othiazide (PRINZIDE,ZESTORETIC) 10-12.5 mg per tablet Take 1 tablet by mouth once daily. - busPIRone (BUSPAR) 15 mg tablet Take 15 mg by mouth three times daily. - amitriptyline (ELAVIL) 75 mg tablet Take by mouth daily at bedtime. Problem List As Of Date 07/21/2022 Noted Resolved COPD (chronic obstructive pulmonary disease) (H*06/30/2017 Current smoker [F17.200] 06/30/2017 Neck pain [M54.2] 06/30/2017 S/P cervical spinal fusion [Z98.1] Anxiety and depression [F41.9, F32.A] Iron deficiency anemia [D50.9] 11/11/2020 B12 deficiency [E53.8] 11/11/2020 Encounter Status:Closed by ADOLPH BLANCO on 07/22/22 [facility] [place] 07-20-2022 GERMAINE Telephone (NIQ) MACIE CLOUD ([id number]) 1975 F Date Time Provider Department 07/20/22 MICHELLE LEICHARLES RASMUSSEN During your visit today, we recorded the following information about you: Doris Turner 07/20/2022 2:54 PM Signed Received the following record(s) via fax. -MRI L spine wo(report) Date 06/25/22 Record(s) scanned into pt's chart. Doris Turner Images requested Adolph Blanco RN 07/21/2022 2:23 PM Signed Noted. See other Encounter 07/21/22 with CD. Adolph Blanco RN Allergies As of Date: 07/20/2022 (No Known Allergies) Date Reviewed: 01/23/2021 Reviewed by: Renee Fishman APRN.DRIVER LICENSE EXAMINER - Fully Assessed Reason for Visit: Results [95] Prescriptions as of 07/21/2022 - cyanocobalamin (VITAMIN B-12) 1,000 mcg/mL Inject 1 mL subcutaneously once every month. - amLODIPine-benazepril (LOTREL) 10-20 mg per capsule - buprenorphine-nalOXon e SL (SUBOXONE) 8-2 mg subl Dissolve under the tongue. - cariprazine (VRAYLAR) 4.5 mg capsule take 1 capsule by mouth once daily - cyclobenzaprine (FLEXERIL) 10 mg tablet Take 10 mg by mouth. - dexAMETHasone (DECADRON) 2 mg tablet take 3 tablets by mouth daily for 3 days then 2 for 3 days then 1 for 3 days - diclofenac, EC, (VOLTAREN) 50 mg EC tablet Take 50 mg by mouth three times daily. - omeprazole (PRILOSEC) 20 mg capsule 40 mg. - rOPINIRole (REQUIP) 1 mg tablet Take 1 mg by mouth. - gabapentin (NEURONTIN) 300 mg capsule Take 300 mg by mouth three times daily. - lisinopril-hydroCHLOR Othiazide (PRINZIDE,ZESTORETIC) 10-12.5 mg per tablet Take 1 tablet by mouth once daily. - busPIRone (BUSPAR) 15 mg tablet Take 15 mg by mouth three times daily. - amitriptyline (ELAVIL) 75 mg tablet Take by mouth daily at bedtime. Problem List As Of Date 07/20/2022 Noted Resolved COPD (chronic obstructive pulmonary disease) (H*06/30/2017 Current smoker [F17.200] 06/30/2017 Neck pain [M54.2] 06/30/2017 S/P cervical spinal fusion [Z98.1] Anxiety and depression [F41.9, F32.A] Iron deficiency anemia [D50.9] 11/11/2020 B12 deficiency [E53.8] 11/11/2020 Encounter Status:Closed by ADOLPH BLANCO on 07/21/22 Normal [facility] Albumin [Mass/volume] in Ser um or PlasmaOrdered By: Cristiano Graham on 07-13-2022 Albumin [Mass/Vol] 3.8 g/dL 3.2-5.5 [facility] Basophils Auto (Bld) [#/Vol] Ordered By: Cristiano Graham on 07-13-2022 Basophils (Bld) [#/Vol] 0.0 10*3/uL 0.0-0.2 [facility] Basophils/100 WBC Auto (Bld) Ordered By: Cristiano Graham on 07-13-2022 Basophils/100 WBC (Bld) 0.4 % . F [facility] Complete Blood Count Auto Di ffon 07-13-2022 Basophils (Bld) [#/Vol] 0.0 10*3/uL Normal 0.0-0.2 [facility] Comment on above: Result Comment: PERF ORMED BY: [facility] [address] [place] [id number] PATHOLOGIST SHADING PAINTER BONY DAVIS M.D. Performed By: #### C BC, CMP ####[facility] [place] [id number] [facility] Basophils/100 WBC (Bld) 0.4 % Normal . F [facility] Comment on above: Performed By: #### C BC, CMP ####[facility] [place] [id number] [facility] Eosinophils (Bld) [#/Vol] 0.0 10*3/uL Normal 0.0-0.45 [facility] Comment on above: Performed By: #### C BC, CMP ####[address] Eosinophils/100 WBC (Bld) 0.5 % Normal . [facility] Comment on above: Performed By: #### C BC, CMP ####[address] Erythrocyte distribution width (RBC) [Ratio] 13.7 % Normal 11.9-15.3 [facility] Comment on above: Performed By: #### C BC, CMP ####[address] Hematocrit (Bld) [Volume fraction] 37.3 % Normal 34.0-46.4 [facility] Comment on above: Performed By: #### C BC, CMP ####[address] Hemoglobin (Bld) [Mass/Vol] 12.4 g/dL Normal 11.8-15.4 [facility] Comment on above: Performed By: #### C ALLEN, CMP ####[address] Lymphocytes (Bld) [#/Vol] 3.3 10*3/uL Normal 1.00-4.8 [facility] Comment on above: Performed By: #### C BC, CMP ####[address] Lymphocytes/100 WBC (Bld) 35.7 % Normal . [facility] Comment on above: Performed By: #### C BC, CMP ####[address] MCH (RBC) [Entitic mass] 30.9 pg Normal 24.7-34.3 [facility] Comment on above: Performed By: #### C BC, CMP ####[address] MCV (RBC) [Entitic vol] 92.9 fL Normal 80-100 [facility] Comment on above: Performed By: #### C BC, CMP ####[place] [id number] [facility] Mean Corpuscular HGB Conc 33.2 g/dL Normal 32.0-35.0 [facility] Comment on above: Performed By: #### C BC, CMP ####[place] [id number] [facility] Monocytes (Bld) [#/Vol] 0.6 10*3/uL Normal 0.0-0.8 [facility] Comment on above: Performed By: #### C BC, CMP ####[place] [id number] [facility] Monocytes/100 WBC (Bld) 6.3 % Normal . F [facility] Comment on above: Performed By: #### C ALLEN, CMP ####[place] [id number] [facility] Neutrophils (Bld) [#/Vol] 5.3 10*3/uL Normal 1.8-7.7 [facility] Comment on above: Performed By: #### C ALLEN, CMP ####[place] [id number] [facility] Neutrophils/100 WBC (Bld) 57.1 % Normal . [facility] Comment on above: Performed By: #### C ALLEN, CMP ####[place] [id number] [facility] NRBC% 0.0 /100{WBC} Normal 0-0.5 [facility] Comment on above: Performed By: #### C BC, CMP ####[place] [id number] [facility] Platelet mean volume (Bld) [Entitic vol] 7.7 fL Normal 6.3-10.7 [facility] Comment on above: Performed By: #### C BC, CMP ####[address] [address] [facility] Platelets (Bld) [#/Vol] 379 10*3/uL Normal 150-450 [facility] Comment on above: Performed By: #### C BC, CMP ####[address] [address] [facility] RBC (Bld) [#/Vol] 4.01 10*6/uL Normal 3.60-5.00 [facility] Comment on above: Performed By: #### C BC, CMP ####[address] [address] [facility] WBC (Bld) [#/Vol] 9.3 10*3/uL Normal 3.8-11.6 [facility] Comment on above: Performed By: #### C BC, CMP ####[place] [id number] [facility] Comprehensive Metabolic Pane ken 07-13-2022 Albumin [Mass/Vol] 3.8 g/dL Normal 3.2-5.5 [facility] Comment on above: Performed By: #### C BC, CMP ####[place] [id number] [facility] Albumin/Globulin [Mass ratio] 1.5 {ratio} Normal [facility] Comment on above: Performed By: #### C BC, CMP ####[place] [id number] [facility] ALP [Catalytic activity/Vol] 79 U/L Normal 32-92 [facility] Comment on above: Result Comment: PERF ORMED BY: [facility] [address] [place] [id number] PATHOLOGIST SHADING PAINTER BONY DAVIS M.D. Performed By: #### C BC, CMP ####[place] [id number] [facility] ALT [Catalytic activity/Vol] 19 U/L Normal 10-60 [facility] Comment on above: Performed By: #### C BC, CMP ####[place] [id number] [facility] Anion gap [Moles/Vol] 14.3 mmol/L Normal 6.0-15.0 [facility] Comment on above: Performed By: #### C BC, CMP ####[facility] [place] [address] [facility] AST [Catalytic activity/Vol] 22 U/L Normal 10-42 [facility] Comment on above: Performed By: #### C BC, CMP ####[facility] [place] [address] [facility] Bilirubin [Mass/Vol] 0.2 mg/dL Low 0.3-1.2 [facility] Comment on above: Performed By: #### C BC, CMP ####[facility] [place] [address] [facility] Calcium [Mass/Vol] 9.0 mg/dL Normal 8.2-10.2 [facility] Comment on above: Performed By: #### C BC, CMP ####[address] [place] [address] [place] [address] [facility] Chloride [Moles/Vol] 99 mmol/L Normal 95-114 [facility] Comment on above: Performed By: #### C ALLEN, CMP ####[address] [place] [place] [address] [place] CO2 [Moles/Vol] 24.0 mmol/L Normal 22.0-30.0 [facility] Comment on above: Performed By: #### C BC, CMP ####[address] [address] [place] [address] [facility] Creatinine [Mass/Vol] 0.59 mg/dL Normal 0.44-1.03 [facility] Comment on above: Performed By: #### C BC, CMP ####[facility] [place] [address] [place] Estimated GFR ( Alyce > 60 Normal [facility] Comment on above: Result Comment: GFR estimated reference range: According to KDOQI guidelines, <60 ml/min/1.73m2 is sufficient to diagnose a patient with chronic kidney disease. Performed By: #### C BC, CMP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 [Mass/Vol] 0.44 mg/dL Low 0.50-0.90 [facility] Comment on above: Performed By: #### B MPX #### [facility] [address] [place] [address] GFR >60.0 Normal >60 [facility] Comment on above: Result Comment: >60 mL/min/1.73m2 EGFR, calc. for ages 18 and older using the MDRD formula (not corrected for weight), is valid for stable renal function. Performed By: #### B MPX #### [facility] [address] [place] [address] GFR/1.73 sq M.predicted among blacks MDRD (S/P/Bld) [Vol rate/Area] mL/min/{1.73_m2} Normal >60 [facility] Comment on above: Result Comment: >60 mL/min/1.73m2 EGFR, calc. for ages 18 and older using the MDRD formula (not corrected for weight), is valid for stable renal function. Performed By: #### B MPX #### [facility] [address] [place] [address] Glucose [Mass/Vol] 150 mg/dL Critically high 70-99 [facility] Comment on above: Performed By: #### B MPX #### [facility] [address] [place] [address] Magnesium [Moles/Vol] 4.2 mmol/L Normal 3.4-4.9 [facility] Comment on above: Performed By: #### B MPX #### [facility] [address] [place] [address] Sodium [Moles/Vol] 138 mmol/L Normal 135-144 [facility] Comment on above: Performed By: #### B MPX #### [facility] [address] [place] [id number] Urea nitrogen [Mass/Vol] 8 mg/dL Normal 6-20 [facility] Comment on above: Performed By: #### B MPX #### [facility] [address] [place] [address] Basic Metabolic Panel w/ Ref christy to MGOrdered By: Bib Alvarez on 12-30-2020 Anion gap [Moles/Vol] 6 mmol/L Low [facility] [employer] Work Phone: Calcium [Mass/Vol] 8.6 mg/dL 8.5 - 9.9 mg/dL [facility] Work Phone: Chloride [Moles/Vol] 104 mmol/L [facility] [employer] Work Phone: CO2 [Moles/Vol] 28 mmol/L [facility] Work Phone: Creatinine [Mass/Vol] 0.44 mg/dL Low 0.50 - 0.90 mg/dL [facility] Work Phone: GFR >60.0 >60 [facility] [employer] Work Phone: Comment on above: >60 mL/min/1.73m2 EG FR, calc. for ages 18 and older using the MDRD formula (not corrected for weight), is valid for stable renal function. GFR Non- >60.0 >60 [facility] Work Phone: Comment on above: >60 mL/min/1.73m2 EG FR, calc. for ages 18 and older using the MDRD formula (not corrected for weight), is valid for stable renal function. Glucose [Mass/Vol] 150 mg/dL High 70 - 99 mg/dL [facility] [employer] Work Phone: Interpretation and review of laboratory results Abnormal [facility] Work Phone: Potassium reflex Magnesium 4.2 [facility] [employer] Work Phone: Sodium [Moles/Vol] 138 mmol/L [facility] [employer] Phone: Urea nitrogen (BldV) [Mass/Vol] 8 mg/dL 6 - 20 mg/dL [facility] Phone: [facility] Phone: CBC With Platelet No Differe ntialon 12-30-2020 Erythrocyte distribution width (RBC) [Ratio] 27.2 % Critically high 11.5-14.5 [facility] Comment on above: Performed By: #### C BCND #### [facility] [address] [place] [address] Hematocrit (Bld) [Volume fraction] 32.0 % Low 37.0-47.0 [facility] Comment on above: Performed By: #### C BCND #### [facility] [address] [place] [address] Hemoglobin (Bld) [Mass/Vol] 10.2 g/dL Low 12.0-16.0 [facility] Comment on above: Performed By: #### C BCND #### [facility] [address] [place] [address] MCH (RBC) [Entitic mass] 27.1 pg Normal 27.0-31.3 [facility] Comment on above: Performed By: #### C BCND #### [facility] [address] [place] [address] MCHC 32.0 % Low 33.0-37.0 [facility] Comment on above: Performed By: #### C BCND #### [facility] [address] [place] [address] MCV (RBC) [Entitic vol] 84.5 fL Normal 82.0-100.0 [facility] Comment on above: Performed By: #### C BCND #### [facility] [address] [place] [address] Platelets (Bld) [#/Vol] 302 10*3/uL Normal 130-400 [facility] Comment on above: Performed By: #### C BCND #### [facility] [address] [place] [address] RBC (Bld) [#/Vol] 3.79 10*6/uL Low 4.20-5.40 [facility] Comment on above: Performed By: #### C BCND #### [facility] [address] [place] [address] WBC (Bld) [#/Vol] 11.8 10*3/uL Critically high 4.8-10.8 [facility] Comment on above: Performed By: #### C BCND #### [facility] [address] [place] [address] CBC without DiffOrdered By: Bib Alvarez on 12-30-2020 Hematocrit (Bld) [Volume fraction] 32.0 % Low 37.0 - 47.0 % [employer] Phone: Hemoglobin.gastrointestin al spec 1 Ql (Stl) 10.2 g/dL Low 12.0 - 16.0 g/dL [employer] Phone: Interpretation and review of laboratory results Abnormal [employer] Work Phone: MCH (RBC) [Entitic mass] 27.1 pg 27. 0 - 31.3 pg [employer] Phone: MCHC (RBC) [Mass/Vol] 32.0 % Low 33.0 - 37.0 % [employer] Phone: MCV (RBC) [Entitic vol] 84.5 fL 82.0 - 100.0 fL [employer] Phone: Platelet distribution width (Bld) [Ratio] 27.2 % High 11.5 - 14.5 % [employer] Phone: Platelets (Bld) [#/Vol] 302 10*3/uL 130 - 400 K/uL [employer] Phone: RBC (Bld) [#/Vol] 3.79 10*6/uL Low [employer] Phone: WBC (Bld) [#/Vol] 11.8 10*3/uL High 4.8 - 10.8 K/uL [employer] Phone: [employer] Phone: FLUORO FOR SURGICAL PROCEDUR ESOrdered By: Bib Alvarez on 12-30-2020 Migel, Chpo Incoming Radiant Results From [employer] - 12/30/2020 1:23 PM EDT FLUORO FOR SURGICAL PROCEDURES : 12/30/2020 8:47 AM CLINICAL HISTORY: R52 Pain ICD10. Lumbar spine fusion. COMPARISON: None available. Intraoperative fluoroscopy was provided for Dr. Alvarez 's procedure. A total of 11.22 mGy of fluoroscopy was used, with 4 fluoroscopic stills saved. No diagnostic images were obtained. Please see Dr. Alvarez's surgical notes for complete details. [employer] Phone: [employer] Phone: Surgical Specimenon 12-31-19 21 Surgical Specimen [employer] [facility] [address] [place] [address] FINAL SURGICAL PATHOLOGY REPORT Patient Name: MACIE CLOUD Accession No: [id number] Age Sex: 1975 Location: [facility] [id number] Account No: [id number] Collected: 12/30/2020 Med Rec No: [id number] Received: 12/30/2020 Attend Phys: BIB ALVAREZ Completed: 12/31/2020 Perform Phys: BIB ALVAREZ FINAL DIAGNOSIS: L3-4 DISK- INTERVERTEBRAL DISC MATERIAL WITH REACTIVE CHANGES. ALIFA/ALIFA CLINICAL INFORMATION: Pseudarthrosis, disc herniation, radiculopathy, spondylosis. SPECIMEN: L3-L4 Disc GROSS DESCRIPTION: The specimen is received in formalin in a container labeled with the patient's name and designated as spine . The specimen consists of multiple pinkish-ferreira soft to firm tissue fragment measuring in aggregate 2.5 x 2.0 x 0.2 cm. The specimen is submitted in toto in two cassettes after a brief decalcification. VEGA/CIRILO CPT: 75541 X1 88605 X1 RYAN ANTOINE M.D. 12/31/2020 Electronically signed out by Page 1 of 1 Invalid Interpretation Code [facility] Comment on above: Performed By: #### S UR #### [facility] [address] [place] [id number] COVID-19, NAAon 12-23-2020 SARS-CoV-2 (COVID-19) RNA GERONIMO+probe Ql (Unsp spec) Not detected Normal Not Detect [facility] Comment on above: Result Comment: This nucleic acid amplification test was developed and its performance characteristics determined by [employer]. Nucleic acid amplification tests include RT-PCR and TMA. This test has not been FDA cleared or approved. This test has been authorized by FDA under an Emergency Use Authorization (EUA). This test is only authorized for the duration of time the declaration that circumstances exist justifying the authorization of the emergency use of in vitro diagnostic tests for detection of SARS-CoV-2 virus and/or diagnosis of COVID-19 infection under section 564(b)(1) of the Act, 21 U.S.C. 360bbb-3(b) (1), unless the authorization is terminated or revoked sooner. When diagnostic testing is negative, the possibility of a false negative result should be considered in the context of a patient's recent exposures and the presence of clinical signs and symptoms consistent with COVID-19. An individual without symptoms of COVID-19 and who is not shedding SARS-CoV-2 virus would expect to have a negative (not detected) result in this assay. Performed at: [address] [id number] Canteen Attendant: Ángel Higgins PhD, Phone: [phone] Performed By: #### I RCOV #### [facility] [address] [place] [id number] Basic Metabolic Panelon 05 Anion gap [Moles/Vol] 15 mmol/L Normal 9-15 [facility] Comment on above: Performed By: #### B MP #### [facility] [address] [place] [address] Calcium [Mass/Vol] 10.2 mg/dL Critically high 8.5-9.9 [facility] Comment on above: Performed By: #### B MP #### [facility] [address] [place] [address] Chloride [Moles/Vol] 96 mmol/L Normal 95-107 [facility] Comment on above: Performed By: #### B MP #### [facility] [address] [place] [address] CO2 [Moles/Vol] 26 mmol/L Normal 20-31 [facility] Comment on above: Performed By: #### B MP #### [facility] [address] [place] [address] Creatinine [Mass/Vol] 0.65 mg/dL Normal 0.50-0.90 [facility] Comment on above: Performed By: #### B MP #### [facility] [address] [place] [address] GFR >60.0 Normal >60 [facility] Comment on above: Result Comment: >60 mL/min/1.73m2 EGFR, calc. for ages 18 and older using the MDRD formula (not corrected for weight), is valid for stable renal function. Performed By: #### B MP #### [facility] [address] [place] [address] GFR/1.73 sq M.predicted among blacks MDRD (S/P/Bld) [Vol rate/Area] mL/min/{1.73_m2} Normal >60 [facility] Comment on above: Result Comment: >60 mL/min/1.73m2 EGFR, calc. for ages 18 and older using the MDRD formula (not corrected for weight), is valid for stable renal function. Performed By: #### B MP #### [facility] [address] [place] [address] Glucose [Mass/Vol] 86 mg/dL Normal 70-99 [facility] Comment on above: Performed By: #### B MP #### [facility] [address] [place] [address] Potassium [Moles/Vol] 4.3 mmol/L Normal 3.4-4.9 [facility] Comment on above: Performed By: #### B MP #### [facility] [address] [place] [address] Sodium [Moles/Vol] 137 mmol/L Normal 135-144 [facility] Comment on above: Performed By: #### B MP #### [facility] [address] [place] [address] Urea nitrogen [Mass/Vol] 9 mg/dL Normal 6-20 [facility] Comment on above: Performed By: #### B MP #### [facility] [address] [place] [address] CBC With Platelet No Differe ntialon 12-22-2020 Erythrocyte distribution width (RBC) [Ratio] 29.1 % Critically high 11.5-14.5 [facility] Comment on above: Performed By: #### C BCND #### [facility] [address] [place] [address] Hematocrit (Bld) [Volume fraction] 41.5 % Normal 37.0-47.0 [facility] Comment on above: Performed By: #### C BCND #### [facility] [address] [place] [address] Hemoglobin (Bld) [Mass/Vol] 13.3 g/dL Normal 12.0-16.0 [facility] Comment on above: Performed By: #### C BCND #### [facility] [address] [place] [address] MCH (RBC) [Entitic mass] 26.7 pg Low 27.0-31.3 [facility] Comment on above: Performed By: #### C BCND #### [facility] [address] [place] [address] MCHC 32.0 % Low 33.0-37.0 [facility] Comment on above: Performed By: #### C BCND #### [facility] [address] [place] [address] MCV (RBC) [Entitic vol] 83.5 fL Normal 82.0-100.0 [facility] Comment on above: Performed By: #### C BCND #### [facility] [address] [place] [address] Platelets (Bld) [#/Vol] 483 10*3/uL Critically high 130-40 0 [facility] Comment on above: Performed By: #### C BCND #### [facility] [address] [place] [address] RBC (Bld) [#/Vol] 4.97 10*6/uL Normal 4.20-5.40 [facility] Comment on above: Performed By: #### C BCND #### [facility] [address] [place] [address] WBC (Bld) [#/Vol] 11.6 10*3/uL Critically high 4.8-10.8 [facility] Comment on above: Performed By: #### C BCND #### [facility] [address] [place] [address] COVID-19, NAAon 12-22-2020 Source Swab Anterior nares Normal [facility] Comment on above: Performed By: #### I RCOV #### [facility] [address] [place] [address] Partial Thromboplastin Timeo n 12-22-2020 aPTT Coag (Bld) [Time] 28.5 s Normal 24.4-36.8 [facility] Comment on above: Result Comment: Effe ctive 06/18/2020: Heparin Therapeutic Range: 64.0 ? 98.0 seconds. Performed By: #### P TT #### [facility] [address] [place] [address] Prothrombin Timeon INR Coag (PPP) [Relative time] 0.9 {INR} Normal [facility] Comment on above: Performed By: #### B MP #### [facility] [address] [place] [address] PT Coag (PPP) [Time] 12.7 s Normal 12.3-14.9 [facility] Comment on above: Performed By: #### B MP #### [facility] [address] [place] [address] Type and Screen Capture 3 sc rn cellon 12-22-2020 Type and Screen Capture 3 scrn cell PATIENT: MANUELA Thacker LOC: [facility]# : [id number] : 1975 SEX: F ORDERED BY: CLAUDETTE Cespedes ORDERED : 12/22/2020 11:03 COLLECTED: 12/22/2020 11:04 ORDER : [id number] RECEIVED : 12/22/2020 15:08 TEST NAME RESULT UNITS RANGES ABN FL [facility] Capture O POS F Antibody 3 Cell Scrn Captu NEG F Normal [facility] Comment on above: Performed By: #### B MP #### [facility] [address] [place] [address] COVID-19, NAAon 10-29-2020 SARS-CoV-2 (COVID-19) RNA GERONIMO+probe Ql (Unsp spec) Not detected Normal Not Detect [facility] Comment on above: Result Comment: This nucleic acid amplification test was developed and its performance characteristics determined by [employer]. Nucleic acid amplification tests include RT-PCR and TMA. This test has not been FDA cleared or approved. This test has been authorized by FDA under an Emergency Use Authorization (EUA). This test is only authorized for the duration of time the declaration that circumstances exist justifying the authorization of the emergency use of in vitro diagnostic tests for detection of SARS-CoV-2 virus and/or diagnosis of COVID-19 infection under section 564(b)(1) of the Act, 21 U.S.C. 360bbb-3(b) (1), unless the authorization is terminated or revoked sooner. When diagnostic testing is negative, the possibility of a false negative result should be considered in the context of a patient's recent exposures and the presence of clinical signs and symptoms consistent with COVID-19. An individual without symptoms of COVID-19 and who is not shedding SARS-CoV-2 virus would expect to have a negative (not detected) result in this assay. Performed at: [facility] [address] [facility], [place], [place] [id number] Canteen Attendant: Mars Kinney MD, Phone: [phone] Performed By: #### I RCOV #### [facility] [address] [place] [address] Basic Metabolic Panelon 10-13 Anion gap [Moles/Vol] 13 mmol/L Normal 9-15 [facility] Comment on above: Performed By: #### B MP #### [facility] [address] [place] [address] Calcium [Mass/Vol] 9.2 mg/dL Normal 8.5-9.9 [facility] Comment on above: Performed By: #### B MP #### [facility] [address] [place] [address] Chloride [Moles/Vol] 100 mmol/L Normal 95-107 [facility] Comment on above: Performed By: #### B MP #### [facility] [address] [place] [address] CO2 [Moles/Vol] 25 mmol/L Normal 20-31 [facility] Comment on above: Performed By: #### B MP #### [facility] [address] [place] [address] Creatinine [Mass/Vol] 0.58 mg/dL Normal 0.50-0.90 [facility] Comment on above: Performed By: #### B MP #### [facility] [address] [place] [address] GFR >60.0 Normal >60 [facility] Comment on above: Result Comment: >60 mL/min/1.73m2 EGFR, calc. for ages 18 and older using the MDRD formula (not corrected for weight), is valid for stable renal function. Performed By: #### B MP #### [facility] [address] [place] [address] GFR/1.73 sq M.predicted among blacks MDRD (S/P/Bld) [Vol rate/Area] mL/min/{1.73_m2} Normal >60 [facility] Comment on above: Result Comment: >60 mL/min/1.73m2 EGFR, calc. for ages 18 and older using the MDRD formula (not corrected for weight), is valid for stable renal function. Performed By: #### B MP #### [facility] [address] [place] [address] Glucose [Mass/Vol] 100 mg/dL Critically high 70-99 [facility] Comment on above: Performed By: #### B MP #### [facility] [address] [place] [address] Potassium [Moles/Vol] 4.7 mmol/L Normal 3.4-4.9 [facility] Comment on above: Performed By: #### B MP #### [facility] [address] [place] [address] Sodium [Moles/Vol] 138 mmol/L Normal 135-144 [facility] Comment on above: Performed By: #### B MP #### [facility] [address] [place] [address] Urea nitrogen [Mass/Vol] 10 mg/dL Normal 6-20 [facility] Comment on above: Performed By: #### B MP #### [facility] [address] [place] [address] CBC With Platelet No Differe ntialon 10-27-2020 Erythrocyte distribution width (RBC) [Ratio] 21.3 % Critically high 11.5-14.5 [facility] Comment on above: Performed By: #### C BCND #### [facility] [address] [place] [address] Hematocrit (Bld) [Volume fraction] 31.1 % Low 37.0-47.0 [facility] Comment on above: Performed By: #### C BCND #### [facility] [address] [place] [address] Hemoglobin (Bld) [Mass/Vol] 9.7 g/dL Low 12.0-16.0 [facility] Comment on above: Performed By: #### C BCND #### [facility] [address] [place] [address] MCH (RBC) [Entitic mass] 23.0 pg Low 27.0-31.3 [facility] Comment on above: Performed By: #### C BCND #### [facility] [address] [place] [address] MCHC 31.2 % Low 33.0-37.0 [facility] Comment on above: Performed By: #### C BCND #### [facility] [address] [place] [address] MCV (RBC) [Entitic vol] 73.7 fL Low 82.0-100.0 [facility] Comment on above: Performed By: #### C BCND #### [facility] [address] [place] [address] Platelets (Bld) [#/Vol] 367 10*3/uL Normal 130-400 [facility] Comment on above: Performed By: #### C BCND #### [facility] [address] [place] [address] RBC (Bld) [#/Vol] 4.22 10*6/uL Normal 4.20-5.40 [facility] Comment on above: Performed By: #### C BCND #### [facility] [address] [place] [address] WBC (Bld) [#/Vol] 10.0 10*3/uL Normal 4.8-10.8 [facility] Comment on above: Performed By: #### C BCND #### [facility] [address] [place] [address] COVID-19, NAAon 10-27-2020 Source Swab Anterior nares Normal [facility] Comment on above: Performed By: #### I RCOV #### [facility] [address] [place] [address] Partial Thromboplastin Timeo n 10-27-2020 aPTT Coag (Bld) [Time] 27.9 s Normal 24.4-36.8 [facility] Comment on above: Result Comment: Effe ctive 06/18/2020: Heparin Therapeutic Range: 64.0 ? 98.0 seconds. Performed By: #### P TT #### [facility] [address] [place] [address] Prothrombin Timeon INR Coag (PPP) [Relative time] 0.9 {INR} Normal [facility] Comment on above: Performed By: #### P T #### [facility] [address] [place] [address] PT Coag (PPP) [Time] 12.4 s Normal 12.3-14.9 [facility] Comment on above: Performed By: #### P T #### [facility] [address] [place] [address] Type and Screen Capture 3 sc rn cellon 10-27-2020 Type and Screen Capture 3 scrn cell PATIENT: MANUELA Thacker LOC: [facility] BILL# : [id number] : 1975 SEX: F ORDERED BY: CLAUDETTE Cespedes ORDERED : 10/27/2020 10:58 COLLECTED: 10/27/2020 10:55 ORDER : [id number] RECEIVED : 10/27/2020 14:31 TEST NAME RESULT UNITS RANGES ABN FL [facility] Capture O POS F Antibody 3 Cell Scrn Captu NEG F Normal [facility] Comment on above: Performed By: #### T S3C #### [facility] [address] [place] [address] Vital Signs Date Time Vital Sign Value Performing Clinician Facility 06-17-2023 20:40-0400 Body height 170.18 cm DO [employer] Work Phone: [facility] 06-17-2023 20:40-0400 Body temperature 98 [degF] DO [employer] Work Phone: [facility] 06-17-2023 20:40-0400 Body weight 55.33 kg DO [employer] Work Phone: [facility] 06-17-2023 20:40-0400 Diastolic blood pressure 78 mm[Hg] DO [employer] Work Phone: [facility] 06-17-2023 20:40-0400 Heart rate 102 /min DO [facility] Work Phone: [facility] 06-17-2023 20:40-0400 Respiratory rate 18 /min DO Crist[facility] Work Phone: [facility] 06-17-2023 20:40-0400 SaO2% (BldA) [Mass fraction] 96 % DO Cristiano House Work Phone: [facility] 06-17-2023 20:40-0400 Systolic blood pressure 108 mm[Hg] DO Crist[facility] Work Phone: [facility] 04-12-2023 13:27-0400 Diastolic blood pressure 87 mm[Hg] [facility] 04-12-2023 13:27-0400 Heart rate 74 /min [facility] 04-12-2023 13:27-0400 Respiratory rate 14 /min [facility] 04-12-2023 13:27-0400 Systolic blood pressure 149 mm[Hg] [facility] 03-09-2023 13:00-0400 Body height 170.18 cm Sobeida Blades Other [facility] [employer] Other 03-09-2023 13:00-0400 Body mass index (BMI) [Ratio] 18.64 kg/m2 Sobeida Blades Other [facility] Other 03-09-2023 13:00-0400 Body weight 53.98 kg Sobeida Blades Other [facility] Other 03-09-2023 13:00-0400 Diastolic blood pressure 62 mm[Hg] Sobeida Blades Other [facility] [employer] Other 03-09-2023 13:00-0400 Systolic blood pressure 118 mm[Hg] Sobeida Benítezs Other [facility] [employer] Other 10-28-2022 18:20-0400 Diastolic blood pressure 96 mm[Hg] DO Cristiano House Work Phone: [facility] 10-28-2022 18:20-0400 Heart rate 91 /min DO Cristiano House Work Phone: [facility] 10-28-2022 18:20-0400 Respiratory rate 18 /min DO Cristiano House Work Phone: [facility] 10-28-2022 18:20-0400 SaO2% (BldA) [Mass fraction] 95 % DO Crist[facility] House Work Phone: [facility] 10-28-2022 18:20-0400 Systolic blood pressure 167 mm[Hg] DO [facility] Work Phone: [facility] 10-28-2022 14:36-0400 Body temperature 98.1 [degF] DO [facility] Work Phone: [facility] 10-28-2022 14:35-0400 Body height 170.18 cm DO Cristiano House Work Phone: [facility] 10-28-2022 14:35-0400 Body weight 53.07 kg DO Cristiano House Work Phone: [facility] 09-16-2022 11:49-0500 Diastolic blood pressure 94 mm[Hg] DO Cristiano House Work Phone: [facility] 09-16-2022 11:49-0500 Heart rate 68 /min DO Cristiano House Work Phone: [facility] 09-16-2022 11:49-0500 Respiratory rate 16 /min DO Cristiano House Work Phone: [facility] 09-16-2022 11:49-0500 SaO2% (BldA) [Mass fraction] 99 % DO Cristiano Santos Work Phone: [facility] 09-16-2022 11:49-0500 Systolic blood pressure 168 mm[Hg] DO Cristiano Santos Work Phone: [facility] 09-16-2022 09:24-0500 Body height 170.18 cm DO Cristiano Graham Work Phone: [facility] 09-16-2022 09:24-0500 Body temperature 97.7 [degF] DO Cristiano Graham Work Phone: [facility] 09-16-2022 09:24-0500 Body weight 54.43 kg DO Cristiano Graham Work Phone: [facility] 09-13-2022 13:18-0500 Body height 170.2 cm Too Hughes MD Work Phone: [facility] 09-13-2022 13:18-0500 Body weight 57.15 kg Too Hughes MD Work Phone: [facility] 09-13-2022 13:18-0500 Diastolic blood pressure 74 mm[Hg] Too Hughes MD Work Phone: [facility] 09-13-2022 13:18-0500 Heart rate 78 /min Too Hughes MD Work Phone: [facility] 09-13-2022 13:18-0500 Respiratory rate 16 /min Too Hughes MD Work Phone: [facility] 09-13-2022 13:18-0500 SaO2% (BldA) [Mass fraction] 99 % Too Hughes MD Work Phone: [facility] 09-13-2022 13:18-0500 Systolic blood pressure 145 mm[Hg] Too Hughes MD Work Phone: [facility] 11-18-2021 13:45-0400 Body height 170.18 cm Jak Steele Other [facility] Other 11-18-2021 13:45-0400 Body mass index (BMI) [Ratio] 20.36 kg/m2 Jak Ivette Other [facility] Other 11-18-2021 13:45-0400 Body temperature 96.6 [degF] Jak Steele Other [facility] Other 11-18-2021 13:45-0400 Body weight 58.97 kg Jak Steele Other [facility] Other 11-18-2021 13:45-0400 Diastolic blood pressure 62 mm[Hg] Jak Steele Other [facility] Other 11-18-2021 13:45-0400 SaO2% (BldA) [Mass fraction] 99 % Jak Ivette Other [facility] Other 11-18-2021 13:45-0400 Systolic blood pressure 102 mm[Hg] Jak Steele Other [facility] Other 01-01-2021 08:03-0400 Body temperature 98.4 [degF] Bib Alvarez MD Work Phone: [employer] Work Phone: 01-01-2021 08:03-0400 Diastolic blood pressure 56 mm[Hg] Bib Alvarez MD Work Phone: [employer] Work Phone: 01-01-2021 08:03-0400 Heart rate 106 /min Bib Alvarez MD Work Phone: [employer] Work Phone: 01-01-2021 08:03-0400 Respiratory rate 20 /min Bib Alvarez MD Work Phone: [employer] Work Phone: 01-01-2021 08:03-0400 SaO2% (BldA) [Mass fraction] 95 % Bib Alvarez MD Work Phone: [employer] Work Phone: 01-01-2021 08:03-0400 Systolic blood pressure 110 mm[Hg] Bib Alvarez MD Work Phone: [employer] Work Phone: 12-30-2020 07:33-0400 Body height 170.2 cm Bib Alvarez MD Work Phone: [employer] Work Phone: 12-30-2020 07:33-0400 Body mass index (BMI) [Ratio] 20.36 kg/m2 Bib Alvarez MD Work Phone: [employer] Work Phone: 12-30-2020 07:33-0400 Body weight 58.97 kg Bib Alvarez MD Work Phone: [employer] Work Phone: Encounters Encounter Date Encounter Type Care Provider Facility Start: 08-30-2023 End: 08-31-2023 ambulatory CRISTIANO Barnes [facility] Start: 08-24-2023 End: 08-29-[address] [facility] Start: 07-18-2023 End: 07-21-2023 ambulatory CRISTIANO Barnes [facility] Start: 07-18-2023 End: 07-21-2023 ambulatory [facility] Start: 06-23-2023 End: 06-23-2023 ambulatory Gail Garcia Facility:[facility] Start: 06-23-2023 End: 06-23-2023 ambulatory DO Quinonez Mccausland Work Phone: [facility] Work Phone: Start: 06-23-2023 End: 06-23-2023 Patient encounter procedure DO Cristiano House Work Phone: [facility] [address] Work Phone: Start: 06-20-2023 End: 06-20-2023 ambulatory Sobeida Blades Other [facility] Other Start: 06-20-2023 Telephone encounter Sobeida Blades [facility] [employer] Start: 06-17-2023 End: 06-17-2023 Emergency department patient visit PHYSICIAN NO FAMILY Facility:[facility] Start: 06-17-2023 End: 06-17-2023 Emergency department patient visit DO Cristiano House Work Phone: [facility] Work Phone: Start: 05-18-2023 End: 05-18-2023 ambulatory Sobeida Blades Other [facility] Other Start: 05-18-2023 Telephone encounter Sobeida Blades [facility] Start: 05-17-2023 End: 05-17-2023 ambulatory Sobeida Blades Other [facility] Other Start: 05-17-2023 Telephone encounter Sobeida Blades [facility] Start: 04-12-2023 End: 04-13-2023 ambulatory SOBEIDA A BLADES [facility] Start: 04-12-2023 End: 04-12-2023 Pain Management [facility] Start: 04-12-2023 End: 04-12-2023 ambulatory Eloy Perez Onyeneke Facility:[facility] Start: 04-12-2023 End: 04-12-2023 ambulatory DO Cristiano House Work Phone: [facility] Work Phone: Start: 04-12-2023 End: 04-12-2023 Patient encounter procedure DO Cristiano Graham Work Phone: [facility] [place] Work Phone: Start: 03-09-2023 End: 03-09-2023 ambulatory Sobeida Whitney Other [facility] [employer] Other Start: 03-09-2023 Office outpatient vi sit 15 minutes Sobeida Blades [facility] Start: 02-10-2023 ambulatory Darlyn Kaufman RN [facility] Comment on above: Blood Management Start: 12-17-2022 ambulatory Too lagos MD Work Phone: [facility] Comment on above: Nicotine Testing Start: 12-17-2022 E-mail encounter fro m caregiver Too Hughes MD Work Phone: [facility] Start: 11-20-2022 End: 11-20-2022 ambulatory TOO HUGHES Facility:[facility] Start: 11-20-2022 End: 11-20-2022 ambulatory Too Hughes MD Work Phone: [facility] Comment on above: Cervical myelopathy (HCC) (Primary Dx); Cervical radiculopathy Start: 11-20-2022 End: 11-20-2022 Telemedicine consultation with patient Too Hughes MD Work Phone: [facility] Start: 11-07-2022 ambulatory Too lagos MD Work Phone: [facility] Comment on above: My back and neck Start: 10-28-2022 End: 10-28-2022 Emergency department patient visit Cristiano Graham Facility:[facility] Start: 10-28-2022 End: 10-28-2022 Emergency department patient visit DO Crist[facility] [facility] Work Phone: Start: 10-07-2022 End: 10-08-2022 ambulatory [facility] [place] Facility:[facility] Start: 10-07-2022 End: 10-07-2022 Emergency department patient visit KIKA Alex Facility:[facility] Start: 10-07-2022 Telephone encounter Too Hughes MD Work Phone: [facility] Comment on above: Surgery recsheduling ; Care Coordination Start: 09-28-2022 ambulatory Too lagos MD Work Phone: [facility] Comment on above: Pain Start: 09-27-2022 End: 09-27-[address] DARCIE CADET Facility:[facility] Start: 09-17-2022 Telephone encounter Too Hughes MD Work Phone: [facility] Comment on above: Schedule Surgery; Ca re Coordination Start: 09-16-2022 End: 09-16-2022 ambulatory Michel Venegas Facility:[facility] Start: 09-16-2022 End: 09-16-2022 Admission to same day surgery center DO Cristiano Graham Work Phone: [facility] Work Phone: Start: 09-16-2022 End: 09-16-2022 ambulatory DO Cristiano Graham Work Phone: [facility] Work Phone: Start: 09-13-2022 End: 09-13-2022 ambulatory CRISTIANO GRAHAM SR Facility:[facility] Start: 09-13-2022 End: 09-14-2022 ambulatory TOO HUGHES Facility:[facility] Start: 09-13-2022 End: 09-13-2022 Subsequent hospital visit by physician Xr [facility] Radiology Comment on above: Spinal stenosis of c ervical region [M48.02] Start: 09-13-2022 End: 09-13-2022 Patient encounter procedure Too Hughes MD Work Phone: [facility] Comment on above: Spinal stenosis of c ervical region (Primary Dx); Pseudarthrosis following spinal fusion; Lumbar radiculopathy; 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 Start: 08-04-2022 End: 08-04-2022 ambulatory Lei Martinez PA-C Work Phone: [facility] Comment on above: My virtual visit Start: 08-04-2022 Telephone encounter Lei tam PA-C Work Phone: [facility] Comment on above: Patient Update Start: 07-30-2022 Telephone encounter Joanie loera APRN.DRIVER LICENSE EXAMINER Work Phone: Neurology Comment on above: Opened In Error Appointment Start: 07-21-2022 ambulatory Lei Pauly blakely PA-C Work Phone: [facility] Comment on above: My test results Start: 07-21-2022 Telephone encounter Lei tam PA-C Work Phone: Neurology Comment on above: Received Outside Med [facility] Results Start: 07-13-2022 End: 07-13-2022 ambulatory Cristiano Mccausland Facility:[facility] Start: 07-13-2022 End: 07-13-2022 ambulatory DO Cristiano House Work Phone: [facility] Work Phone: Start: 07-13-2022 End: 07-13-2022 Patient encounter procedure DO Cristiano Graham Work Phone: [facility] Start: 06-25-2022 End: 06-26-[address] ERIC HE Facility: Start: 06-21-2022 End: 06-21-2022 ambulatory Michel Venegas Other [facility] Other Start: 06-21-2022 Telephone encounter Michel serrano [employer] Start: 06-16-2022 End: 06-16-2022 ambulatory Michel Venegas Other [employer] Other Start: 06-16-2022 Telephone encounter Michel serrano [employer] Start: 05-10-2022 End: 05-10-2022 ambulatory DO Cristiano House Work Phone: [facility] Work Phone: Start: 05-10-2022 End: 05-10-2022 Discharged Recurring DO Cristiano Graham Work Phone: [facility] Start: 03-05-2022 End: 03-05-2022 Patient encounter procedure DO Cristiano Graham Work Phone: [facility] Start: 01-01-2022 End: 01-01-2022 ambulatory Lei Coats Michelle FERMIN Work Phone: [facility] Comment on above: Neck pain, chronic ( Primary Dx); Chronic bilateral low back pain with right-sided sciatica Start: 01-01-2022 End: 01-01-2022 Telemedicine consultation with patient Lei Pauly Martinez PA-C Work Phone: [facility] Start: 11-26-2021 End: 11-26-2021 ambulatory Vick Maxwell Other [facility] Other Start: 11-26-2021 Office outpatient vi sit 25 minutes Vick Maxwell [facility] Start: 11-18-2021 End: 11-18-2021 ambulatory Jak Steele Other [facility] Other Start: 11-18-2021 Office outpatient vi sit 10 minutes Jak Steele [facility] Start: 06-25-2021 Chart Update Maia juárez PA-C Work Phone: [facility] Work Phone: Start: 06-25-2021 Chart Update Maia juárez PA-C Work Phone: [facility] Work Phone: Start: 12-30-2020 End: 01-01-2021 Evaluation and management of inpatient SR CRISTIANO [facility] Start: 12-30-2020 End: 01-02-2021 ambulatory SR CRISTIANO [facility] Start: 12-30-2020 End: 01-01-2021 Evaluation and management of inpatient Bib Alvarez MD Work Phone: [facility] Comment on above: Post-op pain (Primar y Dx) Start: 12-30-2020 End: 01-01-2021 Subsequent hospital visit by physician Bib Alvarez MD Work Phone: [facility] Comment on above: Pain Start: 10-27-2020 End: 10-30-2020 ambulatory SR CRISTIANO [facility] Start: 10-27-2020 End: 10-29-2020 Subsequent hospital visit by physician [facility] Room 6 [facility] Comment on above: Pre-op examination Procedures Date Procedure Procedure Detail Performing Clinician Start: 06-23-2023 MR lumbar spine wo con DO [employer] Work Phone: Start: 06-23-2023 MRI of cervical spin e without contrast DO [employer] Work Phone: Start: 10-28-2022 XR pre/post mri xray DO [employer] Work Phone: Start: 10-28-2022 MRI of cervical spin e without contrast DO [employer] Work Phone: Start: 10-28-2022 MRI of cervical spin e with contrast DO [employer] Work Phone: Start: 09-16-2022 Colonoscopy DO [employer] Work Phone: Start: 09-13-2022 Radex entir thrc lmb r crv sac spi w/skull 2/3 vw Too Hughes MD Work Phone: Start: 01-19-2021 Lumbar spinal fusion Bria Sherman Start: 12-31-2020 Radex spine lumbosac ral 2/3 views Bib Alvarez MD Work Phone: Start: 12-31-2020 BASIC METABOLIC PANE L W/ REFLEX TO MG FOR LOW K Bib Alavrez MD Work Phone: Start: 12-31-2020 Blood count complete auto&auto difrntl wbc Bib Alvarez MD Work Phone: Start: 12-30-[address]ABOLIC PANE L W/ REFLEX TO MG FOR LOW K Bib Alvarez MD Work Phone: Start: 12-30-2020 Blood count complete automated Bib Alvarez MD Work Phone: Start: 12-30-2020 Level iv surg pathol ogy gross&microscopic exam Bib Alvarez MD Work Phone: Start: 12-30-2020 Fluoroscopy during operation Bib Alvarez MD Work Phone: Start: 12-30-2020 End: 12-30-2020 Arthrodesis posterior interbody ea addl Bib Alvarez MD Work Phone: Start: 10-30-2019 Cervical arthrodesis Bria Sheramn Ankle region structu re (body structure) Star Sherman Comment on above: Left ankle Appendectomy Star Sherman section Star almaraz H/O: hysterectomy Star pastrana H/O: tubal ligation Star henderson History of surgical procedure on cervical spine Star Sherman Comment on above: C4-6 fusion Lumbar spinal fusion Star Sherman Comment on above: L4-5 fusion and repl acement Plan of Treatment Date Care Activity Detail Author Start: 12-03-2023 DIABETES SCREEN DIABETES SCREEN [facility] Start: 04-15-2023 Influenza vaccination INFLUENZ A (Season Ended) [facility] Start: 10-15-2022 End: 09-17-2023 Hemoglobin A1c in Blood HGB A1C Lab Routine Personal history of other endocrine, nutritional and metabolic disease Expected: 10/15/2022 (Approximate), Expires: 09/17/2023 [facility] Work Phone: Comment on above: Expected: 10/15/2022 (Approximate), Expires: 09/17/2023 Start: 10-15-2022 End: 09-17-2023 NICOTINE/COTININE NICOTINE/COTININE Lab Routine Current smoker Expected: 10/15/2022 (Approximate), Expires: 09/17/2023 [facility] Work Phone: Comment on above: Expected: 10/15/2022 (Approximate), Expires: 09/17/2023 Start: 09-18-2022 End: 09-17-2023 CBC W Auto Differential panel - Blood CBC + DIFF Lab Routine Anemia, unspecified type Expected: 09/18/2022 (Approximate), Expires: 09/17/2023 [facility] Work Phone: Comment on above: Expected: 09/18/2022 (Approximate), Expires: 09/17/2023 Start: 09-18-2022 End: 09-17-2023 Ferritin [Mass/volume] in Serum or Plasma FERRITIN BLD Lab Routine Anemia, unspecified type Expected: 09/18/2022 (Approximate), Expires: 09/17/2023 [facility] Work Phone: Comment on above: Expected: 09/18/2022 (Approximate), Expires: 09/17/2023 Start: 09-18-2022 End: 09-17-2023 Iron and Iron binding capacity panel - Serum or Plasma IRON + TIBC Lab Routine Anemia, unspecified type Expected: 09/18/2022 (Approximate), Expires: 09/17/2023 [facility] Work Phone: Comment on above: Expected: 09/18/2022 (Approximate), Expires: 09/17/2023 Start: 09-16-2022 End: 09-16-2022 [facility] Start: 04-15-2022 Influenza vaccination C [facility] Start: 12-31-2021 Creatinine measurement Creatinine mo [facility] Work Phone: Start: 12-31-2021 Potassium monitoring Potassium monit [facility] Work Phone: Start: 11-13-2021 COLORECTAL CANCER SCREENING COLORECTAL CANCER SCREENING [facility] Start: 11-13-2021 FECAL OCCULT BLOOD FECAL OCCULT BLOO D [facility] Start: 10-27-2021 Creatinine measurement Creatinine mo deysi [employer] Phone: Start: 10-27-2021 Potassium monitoring Potassium monit oriclarisse [employer] Phone: Start: 04-15-2021 Influenza vaccination Flu vacc ine (Season Ended) [employer] Phone: Start: 01-16-2021 End: 01-16-2021 Patient encounter procedure 01/16/2021 Office Visit Neurosurgery Bib Alvarez MD [address] [place], [place] [id number] [employer] [facility] Start: 11-14-2020 End: 11-14-2020 Office Visit 11/14/2020 Office Visit Neurosurgery Bib Alvarez MD [address] [place], [place] [id number] [employer] Start: 04-15-2020 Influenza vaccination Flu vaccine (# 1) [employer] Phone: Start: 2018 COLOGUARD (FIT-DNA) COLOGUARD (FIT-D NA) [facility] Start: 2018 Colonoscopy COLONOSCOPY [facility] Start: [address] COLONOGRAPHY [facility] Start: 2018 LIPID SCREEN LIPID SCREEN [facility] Start: 2018 SIGMOIDOSCOPY SIGMOIDOSCOPY [facility] Start: 2013 Lipid panel Lipid screen [facility] [employer] Phone: Start: 2013 Mammography MAMMOGRAM [facility] Start: 2003 HPV TESTING HPV TESTING [facility] Start: 2003 Zoledronic acid therapy ALPHA- 1 ANTITRYPSIN DEFICIENCY SCREENING [facility] Start: 1994 PAP TESTING PAP TESTING [facility] Start: 1992 DTaP/Tdap/Td vaccine (1 - Tdap) DTaP/Tdap/Td vaccine (1 - Tdap) [employer] Phone: Start: 1992 Urine microalbumin profile DTAP,TDAP,TD (1 - Tdap) [facility] Start: 1991 ANNUAL PCP TEAM APPLIANCE SERVICE TECHNICIAN JOHNNA DISEASE VISIT ANNUAL PCP TEAM CHRONIC DISEASE VISIT [facility] Start: 1991 [facility]PATIT[facility] Start: 1991 HIV SCREENING HIV SCREENING [facility] Start: 1991 SPIROMETRY SPIROMETRY [facility] Start: 1988 [facility] Work Phone: Start: 1985 COVID-19 Vaccine (1) COVID-19 Vaccin e (1) [facility] Start: 1979 PNEUMOCOCCAL (1 - PCV) PNEUMOCOCCAL (1 - PCV) [facility] Start: 1979 Pneumococcal 0-64 ye ars Vaccine (1 of 1 - PPSV23) Pneumococcal 0-64 years Vaccine (1 of 1 - PPSV23) [employer] Phone: Start: 1979 Pneumococcal 0-64 ye ars Vaccine (1 of 2 - PPSV23) Pneumococcal 0-64 years Vaccine (1 of 2 - PPSV23) [facility] [employer] Phone: Start: 1978 COVID-19 VACCINE (#1) COVID-19 VACCI NE (#1) [facility] Start: 01-24-1974 COVID-19 VACCINE (#1) COVID-19 VACCI NE (#1) [facility] Start: 1973 HEPATITIS B (1 of 3 - 3-dose series) HEPATITIS B (1 of 3 - 3-dose series) [facility] Start: 1973 Hepatitis C screening Hepatitis C or marcell [facility] [employer] Phone: Alanine aminotransfe rase [Enzymatic activity/volume] in Serum or Plasma by No addition of P-5'-P [facility] Albumin [Mass/volume ] in Serum or Plasma [facility] Albumin/Globulin ratio [facility] Alkaline phosphatase [Enzymatic activity/volume] in Serum or Plasma [facility] Anion gap measurement [facility] Aspartate aminotransferase [Enzymatic activity/volume] in Serum or Plasma [facility] Bilirubin.total [Mass/volume] in Serum or Plasma [facility] C reactive protein [Mass/volume] in Serum or Plasma [facility] Calcium [Mass/volume ] in Serum or Plasma [facility] Carbon dioxide, tota l [Moles/volume] in Serum or Plasma [facility] Chloride [Moles/volu me] in Serum or Plasma [facility] Continuous pulse oximetry Pulse oximetry, continuous Respiratory Care Routine Every 4hr until discontinued starting 12/30/2020 [employer] Work Phone: Comment on above: Every 4hr until disc ontinued starting 12/30/2020 Creatinine and Glome rular filtration rate.predicted panel - Serum, Plasma or Blood [facility] Erythrocyte sediment ation rate by Photometric method [facility] Gliadin peptide+tiss ue transglutaminase IgA+IgG Ab [Presence] in Serum by Immunoassay [facility] Globulin [Mass/volum e] in Serum [facility] Glucose [Mass/volume ] in Serum or Plasma [facility] Measurement of renal function [facility] End: 10-13-2023 Mri spinal canal cervical w/o contrast matrl MRI CERVICAL SPINE WO IVCON Radiology Routine Spinal stenosis of cervical region 1 Occurrences starting 09/13/2022 until 10/13/2023 [facility] Work Phone: Comment on above: 1 Occurrences starti ng 09/13/2022 until 10/13/2023 Oxygen therapy [[facility] Data Set] Initiate Oxygen Therapy Protocol Respiratory Care Routine Daily until discontinued starting 12/30/2020 [employer] Work Phone: Comment on above: Daily until disconti nued starting 12/30/[address] [facility] Work Phone: Patient referral [facility] Work Phone: Potassium [Moles/vol ume] in Serum or Plasma [facility] Protein [Mass/volume ] in Serum or Plasma [facility] Sodium [Moles/volume ] in Serum or Plasma [facility] Spirometry panel Incentive alyce metry Respiratory Care Routine Every 2hr while awake until discontinued starting 12/30/2020 [employer] Phone: Comment on above: Every 2hr while awak e until discontinued starting 12/30/2020 Surgical Pathology Surgical Path ology Lab Routine Release Upon Ordering for 1 Occurrences starting 12/30/2020 [employer] Phone: Comment on above: Release Upon Orderin g for 1 Occurrences starting 12/30/2020 Urea nitrogen [Mass/volume] in Serum or Plasma [facility] End: 10-27-2020 XR SPINE ENTIRE (2-3 VWS) XR SPINE ENTIRE (2-3 VWS) Imaging Routine Pre-op examination 1 Occurrences starting 10/27/2020 until 10/27/2020 [employer] Phone: Comment on above: 1 Occurrences starti ng 10/27/2020 until 10/27/2020 XR SPINE ENTIRE (2-3 VWS) XR SPI NE ENTIRE (2-3 VWS) Imaging Routine Pre-op examination 10/27/2020 11:32 AM EDT [employer] Phone: [facility] Payers Date Payer Category Payer Self-pay [id number] 2016 Medicaid [employer] [id number] 2016-Present [phone] [address] [place] [address] Medicaid [id number] 2016 Medicaid [id number]. [id number] 1973 Unknown [id number] 2.16.840.1.357158.3.579.2.182 1973 Unknown [id number] 2.16.840.1.259440.3.579.2.182 1973 Unknown [id number] 2.16.840.1.824853.3.579.2.182 1973 Unknown [id number] 2.16.840.1.672972.3.579.2.593 1973 Unknown [id number] 2.16.840.1.931438.3.579.2.593 1973 Unknown [id number] 2.16.840.1.046476.3.579.2.593 1973 Unknown [id number] 2.16.840.1.410970.3.579.2.718 1973 Unknown [id number] 2.16.840.1.116842.3.579.2.718 1973 Unknown [id number] 2.16.840.1.694522.3.579.2.727 1973 Unknown [id number] 2.16.840.1.677478.3.579.2.175 1973 Unknown [id number] 2.16.840.1.066378.3.579.2.175 1973 Unknown [id number] 2.16.840.1.338641.3.579.2.177 1973 Unknown [id number] 2.16.840.1.113362.3.579.2.177 1959 Medicaid [id number] 1959 Unknown [id number] [id number].3. [id number] Unknown [id number] 2.16.840.1.213242.3.579.2.531 Unknown [id number] 2.16.840.1.264424.3.579.2.531 Unknown [id number] 2.16.840.1.622955.3.579.2.531 Unknown [id number] 2.16.840.1.922507.3.579.2.531 Unknown [id number] 2.16.840.1.819711.3.579.2.531 Unknown [id number] 2.16.840.1.607708.3.579.2.531 Social History Date Type Detail Facility Start: 10-27-2020 End: 11-11-2020 Tobacco smoking status IAIS Current every day smoker [facility] Start: 10-27-2020 End: 12-31-2020 Tobacco use and exposure Current user [employer] Phone: Start: 10-27-2020 End: 09-13-2022 Alcohol intake Current drinker of alcohol (finding) [employer] Phone: Start: 10-27-2020 History SDOH Financial 5 [employer] Phone: Start: 10-27-2020 History SDOH Food Worry 1 [employer] Phone: Start: 10-27-2020 History SDOH Transpo rt Med 2 [employer] Phone: Start: 1975 Sex Assigned At Not on file [employer] Phone: Exposure to SARS-CoV -2 (event) Not sure [employer] Phone: History of tobacco use Cigarette Smoker [facility] Start: 06-30-2017 End: 11-11-2020 Cigarettes smoked current (pack per day) - Reported 2 [facility] Start: 06-30-2017 End: 11-11-2020 Tobacco use and exposure Smokeless tobacco non-user [facility] Start: 06-30-2017 History SDOH Alcohol Comment social [facility] Sex Assigned At [facility] Start: 1975 Sex Assigned At Female F [facility] Start: 09-16-2022 End: 06-17-2023 Tobacco smoking status NHIS Smoker (finding) [facility] Tobacco Cigarettes, 2 per day. [facility] Tobacco smoking status No Smokin g Status Entered [facility] Medical Equipment Procedure Code Equipment Code Equipment Origin al Text Equipment Identifier Dates Graft Bne Sub 15 ml 1.7-10mm Canc Chip Morselized Frz Dry - [id number] Start: 12-30-2020 Graft Bne Sub 15 ml 1.7-10mm Canc Chip Morselized Frz Dry - [id number] Start: 12-30-2020 Kit Bne Grft Sm Rhbmp-2 4.2mg Inj 5ml Contain Ndl 20ga [id number] Start: 12-30-2020 Spacer Spnl [id number] 4deg L Peek Post Lum Intbdy Fus [id number] Start: 12-30-2020 Connector Spnl C rss Lo Prof Adj Reline-O 5.5 X 45-65 Mm [id number] Start: 12-30-2020 Screw Spnl L55mm Od6mm 2s Polyax Reline O [id number] Start: 12-30-2020 Screw Spnl Dia5. 5mm Opn Tulip Deborah Reline [id number] Start: 12-30-2020 Seven Spnl Lordtc 5.5x80 Mm Ti Reline-O [id number] Start: 12-30-2020 CERVICAL FUSION POSTERIOR Yamil Lucero MD 10/30/19 Unknown Neck FDA Start: 10-30-2019 CERVICAL FUSION POSTERIOR Yamil Lucero MD 10/30/19 Unknown Neck FDA Start: 10-30-2019 CERVICAL FUSION POSTERIOR Yamil Lucero MD 10/30/19 Unknown Neck FDA Start: 10-30-2019 CERVICAL FUSION POSTERIOR Yamil Lucero MD 10/30/19 Unknown Neck FDA Start: 10-30-2019 CERVICAL FUSION POSTERIOR Yamil Lucero MD 10/30/19 Unknown Neck FDA Start: 10-30-2019 CERVICAL FUSION POSTERIOR Yamil Lucero MD 10/30/19 Unknown Neck FDA Start: 10-30-2019 CERVICAL FUSION POSTERIOR Yamil Lucero MD 10/30/19 Unknown Neck FDA Start: 10-30-2019 Goals Date Patient Goal Desired Activity /State Functional Status Date Assessment Result Facility 04-12-2023 Functional Status N/A [facility] Clinical Notes 12-30-2020 to 04-12-2023 Note Date & Type Note Facility 04-12-2023 Evaluation + Plan note Extrac rajani from: Title:NPV Author:Whit BONILLA, Star Perez Date :04/12/23 Impression and Plan 47-year-old female with severe neck pain that radiates to the arms and as well as low back pain that radiates to the legs consistent with postlaminectomy syndrome. The patient has basically failed all conservative care. She is not a candidate for chronic opioid therapy due to history of substance use disorder and chronic Suboxone use. We discussed the possibility of spinal cord stimulation. I would like for the patient first to be treated in psychiatry for her severe depression. Her depression screening was 6 (highest). The patient at first refused and then excepted the referral. She will also need to quit smoking before being considered for spinal cord stimulation. I would like to see the patient back after she has gone through treatment for her depression as well as having quit smoking. [facility]2023 Evaluation note* Encounter Date Diagnosis Assessment Notes Treatment Notes Treatment Clinical Notes Feb, Post laminectomy syndrome (ICD-10 - M96.1) [employer] Other 06-29-2023 NoteHNO ID: [id number] Author: Dralyn Kaufman RN Service: ? Author Type: Registered Nurse Type: Progress Notes Filed: 02/10/2023 9:31 AM Note Text: Patient referred to Blood Management for anemia evaluation/pre-surgical optimization. Current and complete lab data unavailable. Unable to complete evaluation.[facility]06-29-2023 History of Present illness Narrative* Darlyn Kaufman RN - 02/10/2023 9:31 AM EDT Patient referred to Blood Management for anemia evaluation/pre-surgical optimization. Current and complete lab data unavailable. Unable to complete evaluation. [facility] NoteHNO ID: [id number] Author: Too Hughes MD Service: ? Author Type: Physician Type: Progress Notes Filed: 11/20/2022 11:43 AM Note Text: Patient seen over video visit in follow-up. Unfortunately I was only able to see the sagittal and axial postcontrast images on the MRI as the rest of the scans did not get uploaded. Per scoliosis x-rays do show good alignment of her spine as she does not have any significant kyphotic deformity. On the postcontrast enhanced MRI images does appear that she has a loculated fluid pocket from a recent trigger point injection which may represent an abscess or simply fluid. This is on the left-hand side at C6-7 level. At the level below her previous fusion, it does appear that she does have severe spinal cord compression however the images are very blurry and this is difficult to ascertain. The patient is still complaining of symptoms related to cervical myelopathy as well as arm numbness and difficulty with using her hands and balance issues. I do need to see the rest of her images in order to give her a definitive surgical recommendation. She will send us the CDs and we will attempt to upload them. I have communicated my name and active licensure. The patient's identity and physical location were verified at the time of this visit. Either the patient or their legal group sales representative has been informed of the risks and benefits of -- and alternatives to -- treatment through a remote evaluation and consents to proceed with the evaluation remotely.[facility]04-08-2023 History of Present illness Narrative* Too Hughes MD - 11/20/2022 11:32 AM EDT Patient seen over video visit in follow-up. Unfortunately I was only able to see the sagittal and axial postcontrast images on the MRI as the rest of the scans did not get uploaded. Per scoliosis x-rays do show good alignment of her spine as she does not have any significant kyphotic deformity. On the postcontrast enhanced MRI images does appear that she has a loculated fluid pocket from a recenttrigger point injection which may represent an abscess or simply fluid. This is on the left-hand side at C6-7 level. At the level below her previous fusion, it does appear that she does have severe spinal cord compression however the images are very blurry and this is difficult to ascertain. The patient is still complaining of symptoms related to cervical myelopathy as well as arm numbness and difficulty with using her hands and balance issues. I do need to see the rest of her images in order to give her a definitive surgical recommendation. She will send us the CDs and we will attempt to upload them. I have communicated my name and active licensure. The patient's identity and physical location wereverified at the time of this visit. Either the patient or their legal group sales representative has been informed of the risks and benefits of -- and alternatives to -- treatment through a remote evaluation andconsents to proceed with the evaluation remotely. documented in this encounterSelect Medical [facility]health [facility]-23-2023 NoteEducation Materials Orthopedics Chronic Back Pain When back pain lasts longer than 3 months, it is called chronic back pain. The cause of your back pain may not be known. Some common causes include: ? Wear and tear (degenerative disease) of the bones, ligaments, or disks in your back. ? Inflammation and stiffness in your back (arthritis). People who have chronic back pain often go through certain periods in which the pain is more intense (flare-ups). Many people can learn to manage the pain with home care. Follow these instructions at home: Pay attention to any changes in your symptoms. Take these actions to help with your pain: Managing pain and stiffness ? If directed, apply ice to the painful area. Your health care provider may recommend applying ice during the first 24?48 hours after a flare-up begins. To do this: ? Put ice in a plastic bag. ? Place a towel between your skin and the bag. ? Leave the ice on for 20 minutes, 2?3 times per day. ? If directed, apply heat to the affected area as often as told by your health care provider. Use the heat source that your health care provider recommends, such as a moist heat pack or a heating pad. ? Place a towel between your skin and the heat source. ? Leave the heat on for 20?30 minutes. ? Remove the heat if your skin turns bright red. This is especially important if you are unable to feel pain, heat, or cold. You may have a greater risk of getting burned. ? Try soaking in a warm tub. Activity ? Avoid bending and other activities that make the problem worse. ? Maintain a proper position when standing or sitting: ? When standing, keep your upper back and neck straight, with your shoulders pulled back. Avoid slouching. ? When sitting, keep your back straight and relax your shoulders. Do not round your shoulders or pull them backward. ? Do not sit or hydraulic and plumbing installer one place for long periods of time. ? Take brief periods of rest throughout the day. This will reduce your pain. Resting in a lying or standing position is usually better than sitting to rest. ? When you are resting for longer periods, mix in some mild activity or stretching between periods of rest. This will help to prevent stiffness and pain. ? Get regular exercise. Ask your health care provider what activities are safe for you. ? Do not lift anything that is heavier than 10 lb (4.5 kg), or the limit that you are told, until your health care provider says that it is safe. Always use proper lifting technique, which includes: ? Bending your knees. ? Keeping the load close to your body. ? Avoiding twisting. ? Sleep on a firm mattress in a comfortable position. Try lying on your side with your knees slightly bent. If you lie on your back, put a pillow under your knees. Medicines ? Treatment may include medicines for pain and inflammation taken by mouth or applied to the skin, prescription pain medicine, or muscle relaxants. Take pkfc-idr-htgkkug and prescription medicines only as told by your health care provider. ? Ask your health care provider if the medicine prescribed to you: ? Requires you to avoid driving or using machinery. ? Can cause constipation. You may need to take these actions to prevent or treat constipation: ? Drink enough fluid to keep your urine pale yellow. ? Take vasq-oxl-qiqhrob or prescription medicines. ? Eat foods that are high in fiber, such as beans, whole grains, and fresh fruits and vegetables. ? Limit foods that are high in fat and processed sugars, such as fried or sweet foods. General instructions ? Do not use any products that contain nicotine or tobacco, such as cigarettes, e-cigarettes, and chewing tobacco. If you need help quitting, ask your health care provider. ? Keep all follow-up visits as told by your health care provider. This is important. Contact a health care provider if: ? You have pain that is not relieved with rest or medicine. ? Your pain gets worse, or you have new pain. ? You have a high fever. ? You have rapid weight loss. ? You have trouble doing your normal activities. Get help right away if: ? You have weakness or numbness in one or both of your legs or feet. ? You have trouble controlling your bladder or your bowels. ? You have severe back pain and have any of the following: ? Nausea or vomiting. ? Pain in your abdomen. ? Shortness of breath or you faint. Summary ? Chronic back pain is back pain that lasts longer than 3 months. ? When a flare-up begins, apply ice to the painful area for the first 24?48 hours. ? Apply a moist heat pad or use a heating pad on the painful area as directed by your health care provider. ? When you are resting for longer periods, mix in some mild activity or stretching between periods of rest. This will help to prevent stiffness and pain. This information is not intended to replace advice given (more content not included)...[facility] [id number] Miscellaneous Notes* Telephone Encounter - Karen Watkins RN - 10/07/2022 8:48 AM EST Neuro SPINE CARE COORDINATION SURGERY SCHEDULING Pt scheduled for 12/30/2022. This date is now an OR at [facility]. Due to this, pt will need to be rescheduled per Dr Hughes, case not appropriate for [facility]. Call to patient to discuss above. Reviewed with pt that we will need to reschedule surgery. Reschedule offered for some time in November, pt has not stopped smoking as of yet and has not taken nicotine test with that being said, next opening date will be in February. Pt accepted February date. Education provided again on nicotine cessation and lab test to be done once she is 3 weeks nicotine free. Pt verbalized understanding and states she is working with PCP to quit. New surgery date of 03/07/[address] Hughes. Pre op appts: PACC: 02/08/2023 at [facility] IC: 02/08/[address] Hughes at 240pm S70 [place] ([place] Office Date): anytime Pre op Education: 02/08/2023 inperson at 3pm with Nigel Watkins RN Post op appts: 2 Week VV Post-op with Caroline Malone NP 6-8 week post op appointment with Saul on 04/19/23 at 1120pm. Please schedule XRAY prior to visit. Case message sent to surgery schedulers. Karen Watkins RN documented in this encounterSelect Medical Ohiohealth Rehabilitation Hospital02-03-2023 Miscellaneous Notes* Telephone Encounter - Karen Watkins RN - 09/17/2022 12:35 PM EST Neuro SPINE CARE COORDINATION SURGERY SCHEDULING Per Dr Hughes OK to schedule pt for surgery. Patient accepts surgery date of 12/30/[address] Too Hughes at [facility]. Planned procedure: Revision L3-S1 and ext to L2 lumbar fusion. Length of Surgery:5 hrws Expected Length of Hospital Stay:3-4 Patient's Home Address: [address] [place], [place] [id number] Medications reviewed : Yes. Meds to be stopped prior to surgery : NSAIDS and Vitamins and supplements. Additional pre op clearances needed : None. Any implanted devices (Stimulator, Defibrillator, etc.): No. Transplant History No. Nicotine use: Yes- Dr hughes aware. Pt provided education on nicotine cessation before and after surgery. Pt aware she must have a neg nicotine test prior to surgery. Patient will complete optimization lab work : HgbA1C, Blood Management , and nicotine. Education Sent Via Mail/ FolioDynamixhart: Ambrociohart PACC Questionnaire Completed: Yes Qualify TREK for Surgical Success?: Yes Patient placed on cancellation list: No Pre op appts: [place]: anytime PACC: [facility] 12/07/22 IC: 12/07/[address] Hughes S70 Education: 12/21/22 telephone call with Nigel Watkins RN Post-op Dates: 2 week Virtual Visit with Caroline Malone NP 6 week post-op needed with Dr Hughes 02/14/23 at 1140am. Pre clinic XR: Yes Questions answered. Patient verbalizes understanding via teach back. Additional comments : n/a Preoperative Needs Assessment Do you live alone or with someone that can help you? Alone Will you have assistance available at home after your surgery to help with physical activities sucha toileting or dressing? Occasionally How many steps do you need to climb to get into your home? 1-10 Once in your home, how many steps do you need to climb to access your bedroom or bathroom? 1-10 Do you use a mobility aid for walking/getting around? (note, if more than one type of aid is used, select the one that is used more frequently) None, Cane, and Walker Anticipated LOS > 5 days: Yes Significant home social issues or Current history or past history of substance abuse: No Wheelchair baseline, Homebound baseline, Significant gait instability, or History of significant falls: Yes Thora/lumbar fusion any level planned or 2+ level posterior cervical fusion planned: Yes Myelopathic or Spine tumor: No Probability of non-home discharge disposition : Low [13.4] Karen Watkins RN documented in this encounterSelect Medical Ohiohealth Rehabilitation Hospital02-02-2023 Procedure [facility]01-30-2023 NoteHNO ID: [id number] Author: RT Vicente(R) Service: Radiology Author Type: Technologist Type: Progress Notes Filed: 09/13/2022 3:36 PM Note Text: Radiology Service Progress Note PATIENT NAME: Macie Cloud DATE OF SERVICE: September 13, 2022 TIME: 3:36 PM PATIENT IDENTITY VERIFICATION COMPLETED USING TWO (2) IDENTIFIERS: Name and Date of confirmed by patient verbally. FALL SCREENING: Has the patient had 2 falls in the last year or 1 fall with injury or currently using an Ambulatory Assistive Device (Walker, Cane, Wheelchair, Crutches, etc.)? No PATIENT GENDER DATA: Female. status: : No status: NO. PATIENT RELEVANT IMPLANT DATA REVIEWED: Not Applicable RADIOLOGY DEPARTMENT: General X-ray: Exam(s) Completed: Spine X-Ray(s): Scoliosis Series PERIPHERAL IV DATA: Not applicable SIGNED BY: RT Vicente(R) September 13, 2022 3:36 [facility] History of Present illness Narrative* RT Vicente(R) - 09/13/2022 4:00 PM EST Radiology Service Progress Note PATIENT NAME: Macie Cloud DATE OF SERVICE: September 13, 2022 TIME: 3:36 PM PATIENT IDENTITY VERIFICATION COMPLETED USING TWO (2) IDENTIFIERS: Name and Date of confirmedby patient verbally. FALL SCREENING: Has the patient had 2 falls in the last year or 1 fall with injury or currently using an Ambulatory Assistive Device (Walker, Cane, Wheelchair, Crutches, etc.)? No PATIENT GENDER DATA: Female. status: : No status: NO. PATIENT RELEVANT IMPLANT DATA REVIEWED: Not Applicable RADIOLOGY DEPARTMENT: General X-ray: Exam(s) Completed: Spine X-Ray(s): Scoliosis Series PERIPHERAL IV DATA: Not applicable SIGNED BY: RT Vicente(R) September 13, 2022 3:36 PM documented in this encounterSelect Medical Ohiohealth Rehabilitation Hospital01-30-2023 NoteHNO ID: [id number] Author: Too Hughes MD Service: ? Author Type: Physician Type: Progress Notes Filed: 09/13/2022 2:50 PM Note Text: SPINE SURGERY OUTPATIENT CONSULT This is an in-person visit. SERVICE DATE: 09/13/2022 PCP: Cristiano Graham Sr, MD REFERRING PROVIDER: Lei Martinez [address] [facility] [id number] Consult requested for an opinion regarding the evaluation and treatment of low back pain. My final impression and recommendations will be communicated back to the requesting physician by way of the shared medical record or letter via US mail. SUBJECTIVE Macie Cloud is a 47 year old female presenting with daughter. CHIEF COMPLAINT: LBP, bilateral leg pain; neck pain and left arm pain Numbness in left arm doesn't go away Leg pain intermittent; 500 feet when pain is bad walks with walker or uses wheelchair HISTORY OF PRESENT ILLNESS PRECIPITATING EVENT: 202012-30-[address] Bib Alvarez; revised fusion L3-L5 did have relief of symptoms; 2 month after she fell symtpoms return DURATION OF SYMPTOMS: Greater Than 1 Year PAIN EVALUATION 09/07/2022 1544 09/13/2022 1315 Pain Level: 8 9 Pain Location: Back-Lower Neck Lower back, upper back, right leg and right toes Description: Aching;Burning;Radiating;Shooting;Sore;Stabbing;Stiffness;Throbbing Burning;Aching;Sharp;Numbness;Stabbing/Not Incision;Sore;Pressure Ulcer/Injury Duration Amount of Time: 24 2 Duration Units: Hours Years Frequency: Continuous Continuous Intervention/Comfort measure: Relaxation;Cold;Heat;Positioning;Rocking/holding;Spinal Cord Stimulator Medication;Emotional Support/Reassurance;Exercise;Heat;Cold;Therapeutic techniques-CPRP;Pillow support;Reposition Comments: It hurts all the time if I stand,sit, lay to long it hurts if I try to do anything like take a shower,or clean it kills me -- Aggravating Factors: Flexion, Change of position (sit to stand), Standing, Walking, Driving (riding in a car), Entering/exiting a car Alleviating Factors: Medications, Heat application, Cold application, Lying supine Pain Ratio: Pain in the back and leg(s) is equal, Pain in the neck is greater than in the arm AMBULATORY STATUS: Impaired Community Distances ANTIPLATELET OR ANTICOAGULATION STATUS: No ACTIVE PROBLEM LIST Copd (Chronic Obstructive Pulmonary Disease) ([facility]) Current Smoker Neck Pain S/P Cervical Spinal Fusion Anxiety and Depression Iron Deficiency Anemia B12 Deficiency PAST MEDICAL HISTORY Diagnosis Date Anemia 10/[address] Cristiano Graham Anxiety and depression COPD (chronic obstructive pulmonary disease) ([facility]) Current smoker Neck pain S/P cervical spinal fusion PAST SURGICAL HISTORY Procedure Laterality Date APPENDECTOMY HX BACK SURGERY HX HYSTERECTOMY HX NECK SURGERY HX TONSILLECTOMY HX FAMILY HISTORY Problem Relation Age of Onset Arthritis Mother Arthritis Father Social History Tobacco Use Smoking status: Every Day Packs/day: 2.00 Years: 29.00 Pack years: 58.00 Types: Cigarettes Smokeless tobacco: Never Substance Use Topics Alcohol use: Yes Comment: social ALLERGIES No Known Allergies MEDICATIONS: tiZANidine (ZANAFLEX) 4 mg tablet take 2 to 3 tablets by mouth at bedtime if needed cyanocobalamin (VITAMIN B-12) 1,000 mcg/mL Inject 1 mL subcutaneously once every month. omeprazole (PRILOSEC) 20 mg capsule 40 mg. rOPINIRole (REQUIP) 1 mg tablet Take 1 mg by mouth. gabapentin (NEURONTIN) 300 mg capsule Take 300 mg by mouth three times daily. lisinopril-hydroCHLOROthiazide (PRINZIDE,ZESTORETIC) 10-12.5 mg per tablet Take 1 tablet by mouth once daily. amitriptyline (ELAVIL) 75 mg tablet Take by mouth daily at bedtime. amLODIPine-benazepril (LOTREL) 10-20 mg per capsule buprenorphine-nalOXone SL (SUBOXONE) 8-2 mg subl Dissolve under the tongue. cariprazine (VRAYLAR) 4.5 mg capsule take 1 capsule by mouth once daily cyclobenzaprine (FLEXERIL) 10 mg tablet Take 10 mg by mouth. dexAMETHasone (DECADRON) 2 mg tablet take 3 tablets by mouth daily for 3 days then 2 for 3 days then 1 for 3 days diclofenac, EC, (VOLTAREN) 50 mg EC tablet Take 50 mg by mouth three times daily. busPIRone (BUSPAR) 15 mg tablet Take 15 mg by mouth three times daily. REVIEW OF SYSTEMS: PAIN ASSESSMENT: See HPI. Patient Entered Questionnaires Spine Questions 07/29/2022 07/30/2022 09/07/2022 Pain Location: Lower back - Lower back Pain Duration: - 1 to 5 years - Pain over last 6 months: - Every day or nearly every day in the past 6 months - Symptoms from neck/cervical spine: Yes - Yes Employment Status: - Disabled due to back pain, permanently or temporarily - Off work 1 month or more due to back/neck pain: - Does not apply - Applied for/receive disability/WC due to low back/neck pain - Yes - Involved in law suit/legal claim: - - - Neck Questionnaires 12/25/2021 07/30/2022 09/11/2022 [place]io[place] Modified ROBERT Score 11 (more content not included)...[facility]01-30-2023 History of Present illness Narrative* Too Hughes MD - 09/13/2022 1:21 PM EST Images from the original note were not included. SPINE SURGERY OUTPATIENT CONSULT This is an in-person visit. SERVICE DATE: 09/13/2022 PCP: Cristiano Graham Sr, MD REFERRING PROVIDER: Lei Martinez [phone] [facility] [id number] Consult requested for an opinion regarding the evaluation and treatment of low back pain. My final impression and recommendations will be communicated back to the requesting physician by way of the shared medical record or letter via US mail. SUBJECTIVE Macie Cloud is a 47 year old female presenting with daughter. CHIEF COMPLAINT: LBP, bilateral leg pain; neck pain and left arm pain Numbness in left arm doesn't go away Leg pain intermittent; 500 feet when pain is bad walks with walker or uses wheelchair HISTORY OF PRESENT ILLNESS PRECIPITATING EVENT: 202012-30-[address] Bib Alvarez; revised fusion L3-L5 did have relief of symptoms; 2 month after she fell symtpoms return DURATION OF SYMPTOMS: Greater Than 1 Year PAIN EVALUATION 09/07/2022 1544 09/13/2022 1315 Pain Level: 8 9 Pain Location: Back-Lower Neck Lower back, upper back, right leg and right toes Description: Aching;Burning;Radiating;Shooting;Sore;Stabbing;Stiffness;Throbbing Burning;Aching;Sharp;Numbness;Stabbing/Not Incision;Sore;Pressure Ulcer/Injury Duration Amount of Time: 24 2 Duration Units: Hours Years Frequency: Continuous Continuous Intervention/Comfort measure: Relaxation;Cold;Heat;Positioning;Rocking/holding;Spinal Cord Stimulator Medication;Emotional Support/Reassurance;Exercise;Heat;Cold;Therapeutic techniques-CPRP;Pillow support;Reposition Comments: It hurts all the time if I stand,sit, lay to long it hurts if I try to do anything like take a shower,or clean it kills me -- Aggravating Factors: Flexion, Change of position (sit to stand), Standing, Walking, Driving (ridingin a car), Entering/exiting a car Alleviating Factors: Medications, Heat application, Cold application, Lying supine Pain Ratio: Pain in the back and leg(s) is equal, Pain in the neck is greater than in the arm AMBULATORY STATUS: Impaired Community Distances ANTIPLATELET OR ANTICOAGULATION STATUS: No ACTIVE PROBLEM LIST Copd (Chronic Obstructive Pulmonary Disease) ([facility]) Current Smoker Neck Pain S/P Cervical Spinal Fusion Anxiety and Depression Iron Deficiency Anemia B12 Deficiency PAST MEDICAL HISTORY Diagnosis Date Anemia 10/[address] Cristiano Graham Anxiety and depression COPD (chronic obstructive pulmonary disease) ([facility]) Current smoker Neck pain S/P cervical spinal fusion PAST SURGICAL HISTORY Procedure Laterality Date APPENDECTOMY HX BACK SURGERY HX HYSTERECTOMY HX NECK SURGERY HX TONSILLECTOMY HX FAMILY HISTORY Problem Relation Age of Onset Arthritis Mother Arthritis Father Social History Tobacco Use Smoking status: Every Day Packs/day: 2.00 Years: 29.00 Pack years: 58.00 Types: Cigarettes Smokeless tobacco: Never Substance Use Topics Alcohol use: Yes Comment: social ALLERGIES No Known Allergies MEDICATIONS: tiZANidine (ZANAFLEX) 4 mg tablet take 2 to 3 tablets by mouth at bedtime if needed cyanocobalamin (VITAMIN B-12) 1,000 mcg/mL Inject 1 mL subcutaneously once every month. omeprazole (PRILOSEC) 20 mg capsule 40 mg. rOPINIRole (REQUIP) 1 mg tablet Take 1 mg by mouth. gabapentin (NEURONTIN) 300 mg capsule Take 300 mg by mouth three times daily. lisinopril-hydroCHLOROthiazide (PRINZIDE,ZESTORETIC) 10-12.5 mg per tablet Take 1 tablet by mouth once daily. amitriptyline (ELAVIL) 75 mg tablet Take by mouth daily at bedtime. amLODIPine-benazepril (LOTREL) 10-20 mg per capsule buprenorphine-nalOXone SL (SUBOXONE) 8-2 mg subl Dissolve under the tongue. cariprazine (VRAYLAR) 4.5 mg capsule take 1 capsule by mouth once daily cyclobenzaprine (FLEXERIL) 10 mg tablet Take 10 mg by mouth. dexAMETHasone (DECADRON) 2 mg tablet take 3 tablets by mouth daily for 3 days then 2 for 3 days then 1 for 3 days diclofenac, EC, (VOLTAREN) 50 mg EC tablet Take 50 mg by mouth three times daily. busPIRone (BUSPAR) 15 mg tablet Take 15 mg by mouth three times daily. REVIEW OF SYSTEMS: PAIN ASSESSMENT: See HPI. Patient Entered Questionnaires Spine Questions 07/29/2022 07/30/2022 09/07/2022 Pain Location: Lower back - Lower back Pain Duration: - 1 to 5 years - Pain over last 6 months: - Every day or nearly every day in the past 6 months - Symptoms from neck/cervical spine: Yes - Yes Employment Status: - Disabled due to back pain, permanently or temporarily - Off work 1 month or more due to back/neck pain: - Does not apply - Applied for/receive disability/WC due to low back/neck pain - Yes - Involved in law suit/legal claim: - - - Neck Questionnaires 12/25/2021 07/30/2022 09/11/2022 Benzel Modified ROBERT Score 11 (A lower score indicates increased pain and issues.) Incomplete 14 (A lower score indicates increased pain and issues.) PROMIS Score Percentiles Physical Health 12/25/2021 07/29/2022 09/07/2022 Physical Function Percentile 4 2 3 Sleep Percentile 10 3 10 Fatigue Percentile 1 2 3 Pain Interference Percentile 1 0 1 PROMIS SOCIAL ROLE SCORE 12/25/2021 07/29/2022 09/07/2022 Social Role Satisfaction Percentile 7 8 7 PROMIS Global Health Scale 12/31/2021 07/30/2022 Physical Health Percentile 4 2 Mental Health Percentile 2 2 Percentiles provide an indication of how the patient's score ranks in relation to the general population. Higher percentile rankings indicate better function/quality of life. 50th percentile is the average of the general population and indicates half of respondents had a worse score. Depression Screening: PHQ-9 12/31/2021 07/30/2022 09/11/2022 Score 12 18 23 PHQ-9 Self-harm Question 12/31/2021 07/30/2022 09/11/2022 Thoughts that you would be better off , or of hurting yourself in some way 1 2 1 PHQ-9 Self-Harm (Item 9) response options: 0 Not at all 1 Several days 2 More than half the days 3 Nearly every day PHQ-9 Levels: 0-4 No to mild depression 5-9 Mild depression 10-14 Moderate depression 15-19 Moderately severe depression 20-27 Severe depression OBJECTIVE: PHYSICAL EXAM BP 145/74 Pulse 78 Resp 16 Ht 170.2 cm (5' 7 ) Wt 57.2 kg (126 lb) SpO2 99% BMI 19.73 kg/m 5 out of 5 strength in the bilateral upper and lower extremities. No hyperreflexia or signs of myelopathy. MRI of the lumbar spine reveals adjacent segment disease at L2-3 with central canal stenosis. Flatback deformity from previous lumbar instrumentation. The skin of the cervical spine reveals solid fusion from C2-C5 with pseudoarthrosis at C5-C6. Adjacent segment disease at C6-C7. MRI of the cervicalspine from June 2021 does not reveal any significant central canal stenosis with chronic myelomalacia that has been well decompressed from previous fusions. 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 We will need scoliosis x-rays, an updated MRI of her cervical spine to ensure that she does not have spinal cord compression. I discussed with her that a definitive surgical recommendation will be made after scoliosis x-rays, however she may require a pedicle subtraction osteotomy in order to realign her spine. Definitive surgical plan to be discussed after theabove imaging have been completed. I spent 30 minutes in the visit, with more than 50% of the total [id number] time of the visit in counseling / coordination of care. SIGNATURE: Too Hughes MD PATIENT NAME: Macie Cloud DATE: September 13, 2022 TIME: 1:22 PM PAGER: documented in this encounter[facility]22 Miscellaneous Notes* Telephone Encounter - Lei Martinez PA-C - 08/04/2022 3:23 PM EST Contacted patient, discussed current lumbar imaging, had only MRI done, CT was denied by insurance MRI shows supra and sub adjacent degeneration, severe R FS at L5-S1 may explain her severe R leg pain, as the pain correlates to this level She did present to ED today and they did perform a CT lumbar and pelvis while in the ED, she will have these studies placed on a CD At this time, recommend surgical consult with Dr. Hughes to determine if any further surgery wouldbe needed and to determine if previous fusion is fused. Will coordinate consult with Dr. Hughes, patient will bring CD of CT lumbar to the appointment Lei Martinez PA-C Spine Surgery documented in this encounterSelect [facility]12-19-2022 Miscellaneous Notes* Telephone Encounter - Doris Turner - 08/02/2022 9:57 AM EST Patient is calling in about info below * Telephone Encounter - Nicolasa Wolff Hvac Refrigeration Technician - 07/30/2022 11:11 AM EST pt had 10:30 VV today with provider. Pt has trouble connecting. Pt requesting a phone call. Call back: [phone] documented in this encounterSelect [facility]12-14-2022 Miscellaneous Notes* Telephone Encounter - Ashly Menjivar RN - 07/28/2022 9:13 AM EST Neuro SPINE CARE COORDINATION QUICK NOTE Patient scheduled for virtual visit with CHIP Fine for 07/30/2022 at 10:30 am. Ashly Menjivar RN Physics Technician, Spine Health * Telephone Encounter - Doris Turner - 07/21/2022 2:06 PM EST Received the following record(s) via fax. -MRI L spine wo, Xray, MRI L spine wo/w(report and CD) Date 06/25/22 Record(s) scanned into pt's chart. Doris Turner documented in this encounterSelect [facility]12-08-2022 Miscellaneous Notes* Telephone Encounter - Adolph Blanco RN - 07/22/2022 11:12 AM EST Noted. Forwarded to HARRY via other Encounter. Adolph Blanco RN * Telephone Encounter - Doris Turner - 07/21/2022 9:32 AM EST Received the following record(s) via fax. -Electromyographic report Date 08/26/21 Record(s) scanned into pt's chart. Doris Turner documented in this encounterSelect Medical [facility]05-20-2022 History of Present illness Narrative* Lei Martinez PA-C - 01/01/2022 11:56 AM EDT SPINE SURGERY VIRTUAL New Patient REFERRING PROVIDER: SELF SUBJECTIVE HISTORY OF PRESENT ILLNESS: CHIEF COMPLAINT: chronic neck, low back pain Macie Cloud is a 46 year old female History of multiple cervical and lumbar surgeries as below: ACDF C4-6 (2004) - Dr. Pearson Posterior fusion C2-5 (2019) Dr. Osmar Lucero 2016 lumbar fusion w/ Dr. Pearson 202012-30-[address] Bib Alvarez; revised fusion Main complaint for today's visit is the chronic lower back pain, which radiates down the R buttock/leg No improvement following surgery last December with Dr. Alvarez He has since left the practice and she has not been seen in follow-up Reports the low back pain and R leg pain is debilitating, 10/10 pain Frustrated with her inability to get better or treatment Complains of chronic neck pain as well, which radiates down her LEFT arm and into the ring/small fingers of her LEFT hand Past Medical History: COPD, 4 spine surgeries as documented Past Surgical History: Social History: 1 ppd x 25 yrs PREVIOUS CONSERVATIVE TREATMENTS: PT Injections NSAIDs: diclofenac gabapnetin 800mg flexeril 10mg Subxone Pain management PREVIOUS SPINAL SURGERY: yes, as above DATA REVIEW: 06/22/2021 MRI cervical spine: s/p C2-C5 posterior fusion; C4-C6 anterior fusion. No significant nerve compression on MRI 06/22/2021 XR cervical spine- anterior/posterior cervical fusion; no evidence of hardware failure 04/24/21 MRI lumbar spine: mechanical fusion of L3-5, posterior decompression; no significant canal narrowing ASSESSMENT/PLAN: Chronic low back/R leg pain>>>chronic neck pain, LEFT arm pain/numbness; s/p multiple C/L spine surgeries; + tobacco use Send results of recent EMG CT lumbar spine to assess lumbar fusion Follow-up after EMG and CT is completed Likely would benefit from chronic pain referral Lei Martinez PA-C Spine Surgery documented in this encounterSelect [facility]04-14-2022 Evaluation note* Encounter Date Diagnosis Assessment Notes Treatment Notes Treatment Clinical Notes Nov, Other spondylosis with radiculopathy, cervical region (ICD-10 - M47.22) Patient is complaining of cervical pain radiating into her left upper extremity. Given the complexity of her surgical history, and nature of symptoms, I believe this is beyond the scope of what I can help with. I will fascilitate a referral to [facility] for further evaluation Nov, Other spondylosis with radiculopathy, lumbar region (ICD-10 - M47.26) Patients primary complaint today is lumbar pain radiating into the posterior and lateral aspect of her right lower extremity as well as cervical pain radiating into her left upper extremity. Patient has a history of multiple cervical and lumbar surgeries and appears to still have radiculopathy. I believe she needs to be further evaluated by neurosurgery for possible surgical intervention. Anatomy of spine discussed in detail with patient in regards to patients condition. Nov, Chronic pain (ICD-10 - G89.29) Nov, Other Above note writ ten by Yuri Prince MA, Clerk Typist. Edited and approved by Dr. Vick Maxwell MD. Medical decision making shows a new problem to me with further workup planned or suggested with the potential for extensive treatment options that were considered with the most applicable given this patient's situation as noted above. Treatment options considered include a combination of physical therapy approaches, pharmacologic management, and interventional procedures. Those most applicable to the patient were discussed at this time. Risk of complications and/or morbidity and mortality is high given that acute and chronic pain poses a threat to life and bodily function if undertreated, poorly treated or with failure to maintain adequate treatment and timely followup. Given the serious and fluctuating nature of pain with extensive consideration for whenever pain changes, there always remains the possibility of prolonged functional impairment requiring constant patient reassessment and high-level medical decision making. The amount and complexity of data reviewed is high given that patient labs, radiology reports, and other test were obtained, reviewed and summarized as applicable from the physician portal and/or outside medical records. Pertinent positive and negative findings were considered in medical decision-making. Magin Other 04-06-2022 Evaluation note* Encounter Date Diagnosis Assessment Notes Treatment Notes Treatment Clinical Notes Nov, Radiculopathy affecting upper extremity (ICD-10 - M54.10) I did review this patient's EMG studies. She has a remote left C8 motor radiculopathy. It was moderate and electric in degree electrically. There was no evidence of brachial plexopathy. There was no evidence of entrapment mononeuropathy. Neurogenic thoracic outlet syndrome is usually sensory, not motor. My major concern with this patient is to obtain the correct diagnosis. This patient is complicated by the fact that she also has cervical spine issues. Now she has a C8 motor radiculopathy. At the last visit, her neurologist, Dr. Robert Garvin recommended a cervical intralaminar epidural injection. The patient states that this was done about 3 to 4 weeks ago and did not help. The patient has now been sent to pain management. She has not had that visit yet. I am also trying to obtain the cervical MRI results. We also need neurosurgery notes from her last visit. I will reach out to Dr. Garvin to discuss these findings and see what his opinion is with regard to thoracic outlet. I do not suspect I can help this patient. I doubt she will ever need decompression surgery for TOS. However I would like to complete the work-up and be thorough in my assessment. Therefore I will try and see the patient back in 4 to 6 weeks and have all of this homework completed prior to the next visit. She understands agrees the plan. She is appreciative that I am taking my time to be thorough and not brown to any surgery.This patient has also just initiated a work-up to rule out Marfan's syndrome. This further complicates the differential diagnostic picture. Magin Other 05-19-2021 NoteEXAMINATION: XR LUMBAR SPINE (2-3 VIEWS) CLINICAL HISTORY: Postoperative evaluation COMPARISONS: Radiographs October 27, 2020 TECHNIQUE: AP and lateral views of the lumbar spine and cone-down lateral view of the lumbosacral junction. FINDINGS: Interval postsurgical changes of removal of interspinous prosthesis, with posterior lumbar spine fusion and posterior decompression at L3-L5. Intervertebral disc spacer at L4-L5 remains. Interval placement of an intervertebral disc spacer at L3-L4. Straightening of the lumbar lordosis. Multilevel facet arthropathy again identified. Surgical clips are identified along the back as is subadjacent soft tissue emphysema.[employer] Phone: [phone]) 919-739105-19-2021 NoteEXAMINATION: XR LUMBAR SPINE (2-3 VIEWS) CLINICAL HISTORY: Postoperative evaluation COMPARISONS: Radiographs October 27, 2020 TECHNIQUE: AP and lateral views of the lumbar spine and cone-down lateral view of the lumbosacral junction. FINDINGS: Interval postsurgical changes of removal of interspinous prosthesis, with posterior lumbar spine fusion and posterior decompression at L3-L5. Intervertebral disc spacer at L4-L5 remains. Interval placement of an intervertebral disc spacer at L3-L4. Straightening of the lumbar lordosis. Multilevel facet arthropathy again identified. Surgical clipsare identified along the back as is subadjacent soft tissue emphysema. IMPRESSION: Postsurgical changes. Interpreted by: Lon Moura DO Signed by: Lon Moura DO 12/31/20 Final resultGood [facility]-19-[facility] History of Present illness Narrative* Negrete Xi, PT - 12/31/2020 11:21 AM EDT Physical Therapy Med Surg Initial Assessment Facility/Department: [address] NEURO Room: N227/N227-01 NAME: Macie Cloud : 1975 (45 y.o.) CODE STATUS: Full Code Date of Service: 12/31/2020 Patient Diagnosis(es): Lumbar spondylosis [M47.816] No chief complaint on file. 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 skilled nursing (current) drug therapy 04/29/2020 Other chronic pain 04/29/2020 Chest pain, unspecified 04/29/2020 Essential hypertension 04/25/2020 Current smoker 06/30/2017 COPD (chronic obstructive pulmonary disease) ([facility]) 06/30/2017 Past Medical History: Diagnosis Date Anemia Anxiety Chronic back pain Chronic headaches COPD (chronic obstructive pulmonary disease) ([facility]) Depression Emphysema (subcutaneous) (surgical) resulting from a procedure Emphysema of lung ([facility]) Endometriosis Hypertension Restless leg syndrome Substance abuse ([facility]) Past Surgical History: Procedure Laterality Date ANKLE SURGERY Left APPENDECTOMY CERVICAL SPINE SURGERY 2019 SECTION ENDOMETRIAL ABLATION HYSTERECTOMY, VAGINAL LUMBAR FUSION N/A 12/30/2020 REMOVAL HARDWARE L4-5, L3-4 P.L.I.F (POSTERIOR LUMBAR INTERBODY FUSION), L3-4-5 PEDICLE SCREW POSTEROLATERAL FUSION [place] [facility] [place] Chart Reviewed: Yes Patient assessed for rehabilitation services?: Yes Family / Caregiver Present: No Restrictions: Restrictions/Precautions: Fall Risk (High per morton) Position Activity Restriction Other position/activity restrictions: Lumbar corset when OOB SUBJECTIVE: Pain Pre Treatment Pain Screening Pain at present: 8 Scale Used: Numeric Score Intervention List: Patient able to continue with treatment;Nurse/physician notified Post Treatment Pain Screening: Pain Screening Patient Currently in Pain: Yes Pain Assessment Pain Assessment: 0-10 Pain Level: 8 Pain Type: Surgical pain Pain Location: Back;Hip Pain Orientation: Right;Left;Lower Functional Pain Assessment: Prevents or interferes with many active not passive activities Non-Pharmaceutical Pain Intervention(s): Rest;Ambulation/Increased Activity;Repositioned;Cold applied Prior Level of Function: Social/Functional History Lives With: (adult children) Type of Home: House Home Layout: One level Home Access: Stairs to enter with rails Entrance Stairs - Number of Steps: 2 Bathroom Shower/Tub: Tub/Shower unit Bathroom Equipment: Grab bars in shower, Toilet raiser Home Equipment: Rolling walker, Cane (rollator) Receives Help From: Family (sister live near and children are helpful) ADL Assistance: Independent Homemaking Assistance: Independent Homemaking Responsibilities: Yes (shared) Ambulation Assistance: Independent (no AD) Transfer Assistance: Independent 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 [employer] 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 OBJECTIVE: Vision: Impaired Vision Exceptions: Wears glasses at all times Hearing: Within functional limits Cognition: Overall Orientation Status: Within Functional Limits Follows Commands: Within Functional Limits Observation/Palpation Posture: Good Observation: pleasant,cooperative, no acute distress, guarded posture ROM: RLE AROM: WFL LLE AROM : WFL Spine Lumbar: not testes, impaired s/p lumbar fusion Strength: Strength RLE Comment: functionally >/= 3+/5 Strength LLE Comment: functionally >/= 3+/5 Neuro: Balance Posture: Good Sitting - Static: Good Sitting - Dynamic: Good Standing - Static: Fair;+ Standing - Dynamic: Fair Tone RLE RLE Tone: Normotonic Tone LLE LLE Tone: Normotonic Motor Control Gross Motor?: WFL Sensation Overall Sensation Status: WFL Bed mobility Supine to Sit: Stand by assistance Sit to Supine: Unable to assess Transfers Sit to Stand: Supervision Stand to sit: Supervision Bed to Chair: Stand by assistance Ambulation Ambulation?: Yes Ambulation 1 Surface: level tile Device: Rolling Walker Assistance: Stand by assistance Quality of Gait: flexed posture Gait Deviations: Slow Rosalba;Decreased step length;Decreased step height Distance: 40ft x 2 Comments: CGA only for turning, increased time noted with use of 2ww, steady. limited by pain reports Activity Tolerance Activity Tolerance: Patient Tolerated treatment well PT Education PT Education: Goals;PT Role;Plan of Care;General Safety ASSESSMENT: Body structures, Functions, Activity limitations: Decreased functional mobility ;Decreased ROM;Decreased strength;Decreased balance;Increased pain Decision Making: Medium Complexity History: high Exam: high Clinical Presentation: med Barriers to Learning: none DISCHARGE RECOMMENDATIONS: Discharge Recommendations: Continue to assess pending progress Assessment: Pt demonstrates the above deficits and decline in functional mobility status s/p lumbarhardware removal and lumbar fusion. Recommend pt use 2ww for ambulation. Pt would benefit from physical therapy to address above deficits and allow for safe return home at highest level of function, decrease risk for falls, and improve QOL. REQUIRES PT FOLLOW UP: Yes PLAN OF CARE: Plan Times per week: 5-7 Times per day: Daily Current Treatment Recommendations: Strengthening, Endurance Training, Transfer Training, Neuromuscular Re-education, Patient/Caregiver Education & Training, Equipment Evaluation, Education, &procurement, ROM, Balance Training, Gait Training, Home Exercise Program, Modalities, Safety Education & Training, Stair training, Functional Mobility Training, Manual Therapy - Soft Tissue Mobili zation Safety Devices Type of devices: Left in chair, Call light within reach, Chair alarm in place Goals: Patient goals : go home correction goals correction goal 1: Bed mobility with indep correction goal 2: Functional transfers with indep correction goal 3: Amb 75ft with 2ww and indep correction goal 4: 2 steps with handrail and supervision [facility] (6 CLICK) BASIC MOBILITY AM-[facility] Inpatient Mobility Raw Score : 18 Therapy Time: Individual Time In 0917 Time Out 0934 Minutes 17 Xi Negrete PT, 12/31/20 at 11:24 AM Definitions for assistance levels Independent = pt does not require any physical supervision or assistance from another person for activity completion. Device may be needed. Stand by assistance = pt requires verbal cues or instructions from another person, close to but nottouching, to perform the activity Minimal assistance= pt performs 75% or more of the activity; assistance is required to complete theactivity Moderate assistance= pt performs 50% of the activity; assistance is required to complete the activity Maximal assistance = pt performs 25% of the activity; assistance is required to complete the activity Dependent = pt requires total physical assistance to accomplish the task * Anita Corona, OTR/L - 12/31/2020 10:50 AM EDT [facility]HE[facility] OCCUPATIONAL THERAPY EVALUATION - ACUTE NAME: Macie Cloud : 1975 (45 y.o.) CODE STATUS: Full Code Room: N227/N227-01 Date of Service: 12/31/2020 Patient Diagnosis(es): Lumbar spondylosis [M47.816] No chief complaint on file. 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 exterminator termite (current) drug therapy 04/29/2020 Other chronic pain 04/29/2020 Chest pain, unspecified 04/29/2020 Essential hypertension 04/25/2020 Current smoker 06/30/2017 COPD (chronic obstructive pulmonary disease) ([facility]) 06/30/2017 Past Medical History: Diagnosis Date Anemia Anxiety Chronic back pain Chronic headaches COPD (chronic obstructive pulmonary disease) ([facility]) Depression Emphysema (subcutaneous) (surgical) resulting from a procedure Emphysema of lung ([facility]) Endometriosis Hypertension Restless leg syndrome Substance abuse ([facility]) Past Surgical History: Procedure Laterality Date ANKLE SURGERY Left APPENDECTOMY CERVICAL SPINE SURGERY 2019 SECTION ENDOMETRIAL ABLATION HYSTERECTOMY, VAGINAL LUMBAR FUSION N/A 12/30/2020 REMOVAL HARDWARE L4-5, L3-4 P.L.I.F (POSTERIOR LUMBAR INTERBODY FUSION), L3-4-5 PEDICLE SCREW POSTEROLATERAL FUSION [place] [facility] [place] Restrictions Restrictions/Precautions: Fall Risk (High per morton) Position Activity Restriction Other position/activity restrictions: Lumbar corset when OOB Safety Devices: Safety Devices Safety Devices in place: Yes Type of devices: All fall risk precautions in place Subjective Pre Treatment Pain Screening Pain at present: 8 Scale Used: Numeric Score Intervention List: Patient able to continue with treatment, Patient declined any intervention Comments / Details: Pt states she has had pain medication Pain Reassessment: Pain Assessment Patient Currently in Pain: Yes Pain Assessment: 0-10 Pain Level: 8 Pain Type: Surgical pain Pain Location: Back, Hip Pain Orientation: Right, Left, Lower Pain Descriptors: Constant Prior Level of Function: Social/Functional History Lives With: (adult children) Type of Home: House Home Layout: One level Home Access: Stairs to enter with rails Entrance Stairs - Number of Steps: 2 Bathroom Shower/Tub: Tub/Shower unit Bathroom Equipment: Grab bars in shower, Toilet raiser Home Equipment: Rolling walker, Cane (rollator) Receives Help From: Family (sister live near and children are helpful) ADL Assistance: Independent Homemaking Assistance: Independent Homemaking Responsibilities: Yes (shared) Ambulation Assistance: Independent (no AD) Transfer Assistance: Independent Active [employer] Kay 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 alert and attentive, mildly anxious Cognition Status: Cognition Overall Cognitive Status: Exceptions Arousal/Alertness: Appropriate responses to stimuli Following Commands: Follows one step commands with increased time Attention Span: Attends with cues to redirect Memory: Appears intact Safety Judgement: Decreased awareness of need for safety Problem Solving: Assistance required to generate solutions, Assistance required to implement solutions Insights: Decreased awareness of deficits Initiation: Requires cues for some Sequencing: Requires cues for some Cognition Comment: Pt with increased processing time, reports feeling very fatigued and requires increased time to answer questions Perception Status: Perception Overall Perceptual Status: WFL Sensation Status: Sensation Overall Sensation Status: WFL Vision and Hearing Status: Vision Vision: Impaired Vision Exceptions: Wears glasses at all times Hearing Hearing: Within functional limits ROM: LUE AROM (degrees) LUE AROM : WFL Left Hand AROM (degrees) Left Hand AROM: WFL RUE AROM (degrees) RUE AROM : WFL Right Hand AROM (degrees) Right Hand AROM: WFL Strength: LUE Strength Gross LUE Strength: Exceptions to WFL L Hand General: 3+/5 LUE Strength Comment: 3+/5 all planes, possibly limited d/t pain RUE Strength Gross RUE Strength: Exceptions to WFL R Hand General: 3+/5 RUE Strength Comment: 3+/5 all planes, possibly limited d/t pain Coordination, Tone, Quality of Movement: Tone RUE RUE Tone: Normotonic Tone LUE LUE Tone: Normotonic Coordination Movements Are Fluid And Coordinated: Yes Hand Dominance: Hand Dominance Hand Dominance: Right ADL Status: ADL Feeding: Independent Grooming: Setup UE Bathing: Setup LE Bathing: Minimal assistance UE Dressing: Setup LE Dressing: Minimal assistance Toileting: Minimal assistance Additional Comments: Simulated ADLs as above. Pt. demonstrates decreased overall strength, endurance and balance. Pt. requires increased time for figure 4 Toilet Transfers Toilet - Technique: Ambulating Equipment Used: Grab bars Toilet Transfer: Contact guard assistance Toilet Transfers Comments: CGA d/t toilet height; pt reports higher toilet at home Therapy dumont for assistance levels Independent = Pt. is able to perform task with no assistance but may require a device Stand by assistance = Pt. does not perform task at an independent level but does not need physical assistance, requires verbal cues Minimal, Moderate, Maximal Assistance = Pt. requires physical assistance (25%, 50%, 75% assist fromhelper) for task but is able to actively participate in task Dependent = Pt. requires total assistance with task and is not able to actively participate with task completion Functional Mobility: Functional Mobility Activity: To/from bathroom Assist Level: Stand by assistance Functional Mobility Comments: CGA for first change of direction but overall SBA for mobility Transfers Sit to stand: Stand by assistance Stand to sit: Stand by assistance Transfer Comments: Verbal cues for safety and sequencing Bed Mobility Bed mobility Supine to Sit: Stand by assistance Comment: Up to chair at end of tx. HOB elevated Seated and Standing Balance: Balance Sitting Balance: Supervision Standing Balance: Stand by assistance Functional Endurance: Activity Tolerance Activity Tolerance: Patient Tolerated treatment well D/C Recommendations: OT D/C RECOMMENDATIONS REQUIRES OT FOLLOW UP: Yes Equipment Recommendations: OT Equipment Recommendations Other: Continue to assess OT Education: OT Education OT Education: OT Role, Plan of Care Patient Education: Educated pt. on role of acute care OT Barriers to Learning: None OT Follow Up: OT D/C RECOMMENDATIONS REQUIRES OT FOLLOW UP: Yes Assessment/Discharge Disposition: Assessment: Pt is a 45 year old woman from home with family support who presents to [facility] with the above deficits which impact her ability to perform ADLs and IADLs. Pt. limited d/t fatigue and weakness. Pt. would benefit from continued OT to maximize independence and safety with ADL tasks. Performance deficits / Impairments: Decreased functional mobility , Decreased ADL status, Decreasedstrength, Decreased balance, Decreased endurance, Decreased high-level IADLs, Decreased safe awareness, Decreased cognition Prognosis: Good Discharge Recommendations: Continue to assess pending progress Decision Making: Medium Complexity History: Pt's medical history is moderately complex Exam: Pt. has 8 performance deficits Assistance / Modification: Pt. requires mod A Six Click Score How much help for putting on and taking off regular lower body clothing?: A Little How much help for Bathing?: A Little How much help for Toileting?: A Little How much help for putting on and taking off regular upper body clothing?: A Little How much help for taking care of personal grooming?: A Little How much help for eating meals?: None AM-PAC Inpatient Daily Activity Raw Score: 19 AM-PAC Inpatient ADL T-Scale Score : 40.22 ADL Inpatient CMS 0-100% Score: 42.8 Plan: Plan Times per week: 1-3x Plan weeks: Length of acute stay Current Treatment Recommendations: Strengthening, Balance Training, Functional Mobility Training, Endurance Training, Safety Education & Training, Pain Management, Patient/Caregiver Education & Training, Equipment Evaluation, Education, & procurement, Home Management Training, Cognitive/Perceptual Training, Neuromuscular Re-education Goals: Patient will: - Improve functional endurance to tolerate/complete 30 mins of ADL's - Be Mod I in UB ADLs - Be Mod I in LB ADLs - Be Mod I in ADL transfers without LOB - Be Mod I in toileting tasks - Improve B UE strength and endurance to 4/5 in order to participate in self- care activities as projected. - Access appropriate D/C site with as few architectural barriers as possible. - Sequence self-care tasks with no verbal cues for brace donning Patient Goal: Patient goals : I want to get home Discussed and agreed upon: Yes Comments: Therapy Time: OT Individual Minutes Time In: 916 Time Out: 933 Minutes: 17 Eval: 17 minutes Electronically signed by: FRANCINE Frank/Angelina, OTR/L 12/31/2020, 10:50 AM documented in this [facility] Phone: 1(403) 390-552005-18-2021 NoteFLUORO FOR SURGICAL PROCEDURES : 12/30/2020 8:47 AM CLINICAL HISTORY: R52 Pain ICD10. Lumbar spine fusion. COMPARISON: None available. Intraoperative fluoroscopy was provided for Dr. Alvarez 's procedure.A total of 11.22 mGy of fluoroscopy was used, with 4 fluoroscopic stills saved. No diagnostic images were obtained. Please see Dr. Alvarez's surgical notes for complete details.[employer] Phone: 1(811) 223-280105-18-2021 NoteFLUORO FOR SURGICAL PROCEDURES : 12/30/2020 8:47 AM CLINICAL HISTORY: R52 Pain ICD10. Lumbar spine fusion. COMPARISON: None available. Intraoperative fluoroscopy was provided for Dr. Alvarez 's procedure. A total of 11.22 mGy of fluoroscopy was used, with 4 fluoroscopic stills saved. No diagnostic images were obtained. Please see Dr. Alvarez's surgical notes for complete details. Interpreted by: Lon Moura DO Signed by: Lon Moura DO 12/30/20 Final resultGood [facility]aritan Medical CenterEvaluation note* Diagnosis Post-op pain- Primary Other acute postoperative pain Lumbar spondylosis Lumbosacral spondylosis without myelopathy documented in this encounter [facility] Phone: evaluation note* Diagnosis Pain Generalized pain documented in this encounter [facility] [employer] Phone: [email or web address] note* Diagnosis Neck pain, chronic- Primary Cervicalgia Chronic bilateral low back pain with right-sided sciatica documented [facility] noteNo assessment information availableGrant [facility] Work Phone: Evaluation noteNo InformationNort Mobil Oto Servis Other Evaluation note* Diagnosis Spinal stenosis of cervical region- Primary Spinal stenosis in cervical region Pseudarthrosis following spinal fusion Arthrodesis status Lumbar radiculopathy Thoracic or lumbosacral neuritis or radiculitis, unspecified 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 [facility] Diagnosis Spinal stenosis of cervical region Spinal stenosis in cervical region [facility]* Diagnosis Onset Date Resolution Status Diarrhea acute Dyspepsia acute Rectal bleeding [facility] Work Phone: Evaluation note* Diagnosis Current smoker- Primary Tobacco use disorder Anemia, unspecified type Personal history of other endocrine, nutritional and metabolic disease 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 Chronic pain syndrome Pseudarthrosis following spinal fusion Arthrodesis status documented [facility]* Diagnosis Current smoker- Primary Tobacco use disorder Lumbar radiculopathy Thoracic or lumbosacral neuritis or radiculitis, unspecified 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 Arthrodesis status [facility]* Diagnosis Cervical myelopathy (HCC)- Primary Cervical spondylosis with myelopathy Cervical radiculopathy Brachial neuritis or radiculitis nos Lumbar radiculopathy Thoracic or lumbosacral neuritis or radiculitis, unspecified 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 Arthrodesis status documented in this encounter [facility] general Narrative - Reported* Type Description Date Medical History low back pain Medical History lumbar pain Medical History endometriosis Medical History COPD Medical History venous insufficiency Surgical History left foot surgery Surgical History Procedure:appendectomy;Disease: Surgical History C section Surgical History Procedure:back;Disease: Surgical History laparoscopy Surgical History Procedure:csection;Disease: Surgical History appendectomy Surgical History Procedure:foot;Disease: Surgical History Cervical spine surgery Surgical History Procedure:hysterectomy;Disease: Surgical History lumbar surgery L4, L5 2004 Surgical History Procedure:tubal ligation;Diseas e: Surgical History Cervical disc 2015 Surgical History Procedure:open reduction nasal bone fracture;Disease: 2001 Surgical History Procedure:septoplasty;Disease: 2001 Hospitalization History see above [facility] Other History general Narrative - Reported* Type Description Date Medical History low back pain Medical History endometriosis Medical History COPD Medical History venous insufficiency Medical History anemia Medical History Arthritis Medical History Hypertension Medical History chronic depression Medical History anxiety Surgical History left foot surgery Surgical History Procedure:appendectomy;Disease: Surgical History C section Surgical History Procedure:back;Disease: Surgical History laparoscopy Surgical History Procedure:csection;Disease: Surgical History appendectomy Surgical History Procedure:foot;Disease: Surgical History Cervical spine surgery Surgical History Procedure:hysterectomy;Disease: Surgical History lumbar surgery L4, L5 2004 Surgical History Procedure:tubal ligation;Diseas e: Surgical History Cervical disc 2015 Surgical History Procedure:open reduction nasal bone fracture;Disease: 2001 Surgical History Procedure:septoplasty;Disease: 2001 Hospitalization History see above [facility] Other Hospital course Narrative No data available for this section [facility] Discharge instructions* Instructions* Robin Siu APRN - SHANICE - 01/01/2021 dication given may have significant effects after discharge. Therefore on the day of surgery: 1) you should be accompanied by a responsible adult upon discharge and for 24 hours after surgery. Do not drive a motor vehicle, operate machinery, power tools or appliance, drink alcoholic beverages, or make critical decisions for 24 hours 2) Be aware of dizziness, which may cause a fall. Change positions slowly. 3) Eating: you may resume your regular diet but it is better to increase intake slowly with mild foods and working up to your regular diet. 4) Nausea/Vomiting: Nausea and vomiting may occur as you become more active or begin to increase food intake. If this should happen, decrease activity and return to liquids. 5) Pain: Your surgeon may have given you a prescription for pain medication. Take pain medication with food as prescribed. Pain medication may cause constipation, so drink plenty of fluids. You may need to use laxatives. 6) Ice: You may use a cool pack to operative site for 20 min 5-6 times a day as needed for comfort. 8) Dressing: Change dressing as frequently as needed to keep clean and dry. Remove all sticky tape in 5 days. May shower in three days. Do not put soap or soak on the incision until healed. 9) INCREASE ACTIVITY TOLERATED AND INSTRUCTED. GO BY HOW YOU FEEL. 10) See physical therapist when advised by your physician 11) Call your doctor at [phone] for an appointment (or follow up as scheduled). 12) If have an order for X-Rays have done within a week before your follow up appointment. Contact OFFICE IF o Increased redness, swelling, excess drainage, and/or pain to surgery site. As well as new onset fevers and or chills. These could signify an infection. o Calf or thigh tenderness to touch as well as increased swelling or redness. This could signify a clot formation. o Numbness or tingling to an area around the incision site or below the incision site (toes). Or ifthe operative extremity becomes cold, blue. o Any rash appears, increased or new onset nausea/vomiting occur. This may indicate a reaction to amedication. o Temp is 38.5 C (101F) 12) If you have any concerns or questions, please call OFFICE. The 24- hour phone is [phone] 13) If you are unable to contact your surg Patient is to use ice bags 10 minutes on 10 minutes off as needed basis Patient may shower in 5 days postop. Patient is to ambulate as much as possible Patient is to not drive until follow up Please change dressing daily and PRN for saturation On pod #4 Tuesday you can remove the dressing and leave open to air On pod#5 Tuesday you may shower, try not to soak the incision when showering and pat dry when done * Attachments The following attachments cannot be sent through Care Everywhere. * Spine: Anatomy Sketch (Paraguayan) * Lumbar Spinal Fusion: Post-op ([place]aguayan) * oxycodone ([place]aguayan) * fentanyl transdermal (device) ([place]) * docusate and senna ([place]aguayan) * cephalexin ([place]) documented in this [facility] Phone: Hospital Discharge instructions Additional Instructions DISCHARGE INSTRUCTIONS FOR ENDOSCOPY FOR COLONOSCOPY: -Expect a gassy or full feeling after a colonoscopy. Report any NEW abdominal pain or vomiting. -Watch for rectal bleeding if you have a polyp removed. You may have oozing, but notify the doctor if you pass clots. -Avoid aspirin for 2 days IF a polyp is removed. -It is important to keep your appointments for follow up examinations because polyps can grow back. FOR MOORE/EGD/ERCP/PEG: -Your throat may feel sore today from the scope that the doctor passed through your throat to visualize your stomach. Take a throat lozenge or suck on ice to ease the discomfort. -Do NOT smoke. -You may notice some streaks of blood in your sputum if the doctor has taken a biopsy. Notify the doctor if you cough up large amounts of blood. -Expect a gassy or full feeling after esophagoscopy. Report any persistent pain or vomiting. -Take it easy today. You need not stay in bed, but avoid strenuous activities such as jogging. FOR SEDATION FOR 24 HOURS: -NO driving -Do NOT operate machinery such as power tools, lawn mowers, snow blowers, sewing machines, etc. -Avoid alcoholic beverages and drugs for allergies, nerves, or sleep. -Do NOT stay alone. Do NOT leave your child unattended. -Do NOT make important personal or business decisions or sign any legal documents. -Eat solid foods and drink liquids in smaller amounts than usual until normal appetite returns. If you should experience an upset stomach, liquids high in sugar content (soda, Woody-aid, non-acid juices) are recommended. -You can resume normal activities tomorrow. FOLLOW UP Please call the office and make a follow up appointment to see me in 6-8 weeks. -Notify the doctor if you have any problems. -Office number [phone] Work Phone: Hospital Discharge instructions No data available for this section [facility] No data available for this section [facility] HospitalReason for referral (narrative)* Diagnostic Procedure Only (Routine) - Closed Specialty Diagnoses / Procedures Referred By Contac t Referred To Contact XR IMAGING Diagnoses Spinal stenosis of cervical region Procedures XR SCOLIOSIS PA STAND/LAT 2V RADEX ENTIR THRC LMBR CRV SAC SPI W/SKULL 2/3 Too Hughes MD [address] [place] [address] Xr Imaging Referral ID Status Reason Start Date Expiration Date V isits Requested Visits Authorized [id number] Closed Auto-Generate d Referral 09/13/2022 10/13/2023 1 1 [facility] for visit NarrativePain Medicine Referral UpdateNort Mobil Oto Servis Other Assessments Diagnosis Pre-op examination Preoperative examination, unspecified Summary Purpose Family History No Family History Records Found Relationship Condition Age at Onset Recorded Date/T david father Pulmonary emphysema Unknown Not Specified Vascular disorder Unknown brother Malignant neoplasm Unknown Advance Directives No Advanced Directives Records FoundLatest Code Status on File Code Status Date Activated Date Inactivated Comments Full Code 12/30/2020 4:09 PM Latest Code Status on File Code Status Date Activated Date Inactivated Comments Full Code 12/30/2020 4:09 PM 01/01/2021 3:29 PM Advance Directive Response Recorded Date/ Time Advance Directives No April 4:32pm Advance Directive Response Recorded Date/ Time Advance Directives No April 3:32pm Reason for Referral Status Reason Specialty Diagnoses / Procedures Referred By Contact Referred To Contact Pending Review Radiology Diagnoses Pain Procedures Fluoro For Surgical Procedures Bib Alvarez MD [address] [address] Reason lumbar pain radiatin g into right leg, cervical pain radiating into left arm hx of multiple cervical and lumbar surgeries Diagnosis 1 Other spondylosis wi th radiculopathy, lumbar region (M47.26) Diagnosis 2 Cervical spondylosis with radiculopathy (M47.22) Referral Organization [facility] Referring Provider First Name Vick Referring Provider Last Name Alissa Referring Provider Specialty Pain Medici ne Referred Organization [facility] Referred Address [address] [place], [place],[address] Referred Provider Specialty Neurosurgery Referral Priority Routine General Notes Yuri Prince 11/13 04:00:02 PM > please refer the patient to spine center for further treatment Specialty Diagnoses / Procedures Referred By Jorgito valle Referred To Contact MR IMAGING Diagnoses Spinal stenosis of cervical region Procedures MRI CERVICAL SPINE WO IVCON MRI SPINAL CANAL CERVICAL W/O CONTRAST MATRL Too Hughes MD [address] [place] [address] Mr Imaging Referral ID Status Reason Start Date Expiration Date Visits Requested Visits Authorized [id number] Pending Review Auto-Generat ed Referral 09/13/2022 10/13/2023 1 1 Specialty Diagnoses / Procedures Referred By Jorgito valle Referred To Contact XR IMAGING Diagnoses Spinal stenosis of cervical region Procedures XR SCOLIOSIS PA STAND/LAT 2V RADEX ENTIR THRC LMBR CRV SAC SPI W/SKULL 2/3 VW Too Hughes MD [address] [place] [address] Xr Imaging Referral ID Status Reason Start Date Expiration Date V isits Requested Visits Authorized [id number] Closed Auto-Generate d Referral 09/13/2022 10/13/2023 1 1 Reason evaluate and treat f or consideration of Dorsal Column Stimulator Diagnosis 1 Spondylolisthesis of lumbar region (M43.16) Referral Organization [facility] Referring Provider First Name Sobeida Referring Provider Last Name Chelo Referring Provider Specialty Neurologica l Surgery Referred Organization [facility] Referred Provider Luan Garcia Referred Address [address] [place], [place],[address] Referred Provider Specialty Pain Medicin e Referral Priority Routine Chief Complaint and Reason for Visit Chief Complaint M Lumbar Radiculopat hy Chief Complaint M Lumbar Radiculopat hy labs Chief Complaint labs Blood in Stool, Diarrhea Reason for Visit Diarrhea Dyspepsia Rectal bleeding Chief Complaint Blood in Stool, Diar holly back/neck pain Reason for Visit Diarrhea Dyspepsia Rectal bleeding Chief Complaint R63.4 fall Chief Complaint R63.4 fall m54.12 r26.81 r29.898 Additional Source Comments INFORMATION SOURCE (unrecogn ized section and content) DATE CREATED [facility] DATE CREATED AUTHOR AUTHOR'S ORGANIZ ATION 06/16/2021 [facility] DATE CREATED AUTHOR AUTHOR'S ORGANIZ ATION 04/16/[address] [facility] dical Specialist DATE CREATED AUTHOR AUTHOR'S ORGANIZ ATION 10/02/2022 [facility] DATE CREATED AUTHOR AUTHOR'S ORGANIZ ATION 10/15/2022 [facility] DATE CREATED AUTHOR AUTHOR'S ORGANIZ ATION 02/11/2023 [facility] DATE CREATED AUTHOR AUTHOR'S ORGANIZ ATION 06/07/2023 [facility] DATE CREATED AUTHOR AUTHOR'S ORGANIZ ATION 07/01/2023 [facility] DATE CREATED AUTHOR AUTHOR'S ORGANIZ ATION 08/25/2023 [facility] DATE CREATED AUTHOR AUTHOR'S ORGANIZ ATION 09/01/2023 [facility] Reason for Visit (unrecogniz ed section and content) Status Reason Specialty Diagnoses / Procedures Re ferred By Contact Referred To Contact Diagnoses Lumbar disc herniation PSEUDOARTHROSIS DISC HERNIATION, RADICULOPATHY, SPONDYLOSIS Procedures CT LUMB SP FUSN,POST INTERBDY,EA ADDNL CT ARTHDSIS POST/POSTEROLATRL/POSTINT ERBODY LUMBAR POSTERIOR SEGMENTAL INSTRUMENTATION 3-[address] INSJ BIOMCHN DEV INTERVERTEBRAL DSC SPC W/ARTHRD AUTOGRAFT SPINE SURGERY LOCAL FROM SAME INCISION CT ALLOGRAFT FOR SPINE SURGERY ONLY STRUCTURAL L3-4 P.L.I.F (POSTERIOR LUMBAR INTERBODY FUSION) L4-5 PEDICLE SCREW/ POSTEROLATERAL FUSION/ 2.5 HRS/ 1 C-ARM/ NERIS TABLE/ S.S.E.P/ CELL SAVERS/ NUVASIVE, PAT AT [place], 1ST CASE Bib Alvarez MD [address] [address] [facility] Reason Comments New Patient cervical and lumbar spine issues Reason Comments Received Outside Medical Records Reason Comments Results Reason Comments Opened In Error Reason Comments Appointment Reason Comments Patient Update Reason Comments New Patient Reason Comments Radio Gen HB6 Specialty Diagnoses / Procedures Referred By Contac t Referred To Contact XR IMAGING Diagnoses Spinal stenosis of cervical region Procedures XR SCOLIOSIS PA STAND/LAT 2V RADEX ENTIR THRC LMBR CRV SAC SPI W/SKULL 2/3 VW Too Hughes MD [address] [place] [address] Xr Imaging Referral ID Status Reason Start Date Expiration Date V isits Requested Visits Authorized [id number] Closed Auto-Generate d Referral 09/13/2022 10/13/2023 1 1 Reason Comments Schedule Surgery Care Coordination Reason Comments Surgery recsheduling Care Coordination Reason Comments Established Patient Reason Comments Blood Management Ordered Prescriptions (unrec ognized section and content) Prescription Sig Dispensed Refills Start Date End Da te sennosides-docusate sodium (SENOKOT-S) 8.6-50 MG tablet Take 1 tablet by mouth 2 times daily for 10 days 20 tablet 0 01/01/2021 01/11/2021 cephALEXin (KEFLEX) 500 MG capsule Take 1 capsule by mouth 3 times daily for 7 days 21 capsule 0 01/01/2021 01/08/2021 oxyCODONE-acetaminophen (PERCOCET) 7.5-325 MG per tabletIndications:Post-o p pain Take 1 tablet by mouth every 6 hours as needed for Pain for up to 7 days. 28 tablet 0 01/01/2021 01/08/2021 fentaNYL (DURAGESIC) 25 MCG/HRIndications:Post-o p pain Place 1 patch onto the skin every 72 hours for 15 days. 5 patch 0 01/02/2021 01/17/2021 Scheduled Active and Recently Administ ered Medications (unrecognized section and content) Medication Order 12/30/2020 12/31/202001/0101/01/2021 amitriptyline (ELAVIL) tablet 100 mg 100 mg, Oral, NIGHTLY, First dose on Tue12/30/20 at 2100 2051 (Given - Provider: Ale Sutton RN - Comment: Per Patient request) 2045 (Given - Provider: Ale Sutton RN - Comment: per patient request) 2099 (Due) amLODIPine (NORVASC) tablet 10 mg(Linked Group 1) 10 mg, Oral, DAILY, First dose on Tue12/30/20 at 1645 1651 (Not Given - Provider: Ale Sutton RN - Reason: Patient/family refused) 09 (Not Given - Provider: lAe Sutton RN - Reason: Patient/family refused) 816 (Not Given - Provider: Fabiola Nayak RN - Reason: Patient/family refused) busPIRone (BUSPAR) tablet 15 mg 15 mg, Oral, 2 TIMES DAILY, First dose on Tue12/30/20 at 2100, This 15 mg tablet can be split into thirds (5 mg) or halves (7.5 mg) based on the ordered dose. 2052 (Not Given - Provider: Ale Sutton RN - Reason: Patient/family refused) 911 (Not Given - Provider: Ale Sutton RN - Reason: Patient/family refused)2046 (Not Given - Provider: Ale Sutton RN - Reason: Patient/family refused) 0817 (Given - Provider: Fabiola Nayak RN)2099 (Due) cariprazine hcl (VRAYLAR) capsule 4.5 mg 4.5 mg, Oral, DAILY, First dose on Tue12/31/20 at 0900, Do not crush or break. 0853 (Given - Provider: Ale Sutton RN) 0816 (Given - Provider: Fabiola Nayak RN) ceFAZolin (ANCEF) 2000 mg in dextrose 3 % 50 mL IVPB (duplex) (COMPLETED) 2,000 mg, Intravenous, PURCHASING/RECEIVING TO O.R., 1 dose, On Tue12/30/20 at 0800, Pre-op (day of surgery) 0845 (Given - Provider: Sonia Chisholm APRN - PHYSICAL THERAPIST - Comment: IVPB slow) ceFAZolin (ANCEF) 2000 mg in dextrose 3 % 50 mL IVPB (duplex) (COMPLETED) 2,000 mg, Intravenous, EVERY 8 HOURS, 3 doses, First dose on Tue12/30/20 at 1645, Last dose on Tue12/31/20 at 0845, Post-op 1654 (New Bag - Provider: Ale Sutton RN)1724 (Stopped - Provider: Ale Sutton RN) 0117 (New Bag - Provider: Miguel Ángel Moeller RN)0231 (Stopped - Provider: Miguel Ángel Moeller RN)0853 (New Bag - Provider: Ale Sutton RN)0925 (Stopped - Provider: Ale Sutton RN) cephALEXin (KEFLEX) capsule 500 mg 500 mg, Oral, EVERY 8 HOURS SCHEDULED (3 times per day), First dose on Tue12/31/20 at 0845, For 21 doses 1003 (Given - Provider: Ale Sutton RN)1846 (Given - Provider: Ale Sutton RN) 0301 (Given - Provider: Izabela Sierra LPN)1151 (Given - Provider: Fabiola Nayak RN)1900 (Due - Provider: Usama May [facility]) cyanocobalamin injection 1,000 mcg 1,000 mcg, Intramuscular, EVERY 30 DAYS, First dose on Tue12/30/20 at 1630 1652 (Not Given - Provider: Ale Sutton RN - Reason: Other - Comment: PATIENT GAVE SELF INJECTION December) fentaNYL (DURAGESIC) 25 MCG/HR 1 patch 1 patch, Transdermal, Administer over 72 Hours, EVERY 72 HOURS, First dose on Tue12/30/20 at 1630 1654 (Patch Applied - Provider: Ale Sutton RN) gabapentin (NEURONTIN) capsule 800 mg 800 mg, Oral, 2 TIMES DAILY, First dose on Tue12/30/20 at 2100 2053 (Given - Provider: Ale Sutton RN) 0853 (Given - Provider: Ale Sutton RN)2047 (Given - Provider: Ale Stuton RN) 0816 (Given - Provider: Fabiola Nayak RN)2100 (Due) gentamicin (GARAMYCIN) IVPB 80 mg (COMPLETED) 80 mg, Intravenous, PURCHASING/RECEIVING TO O.R., 1 dose, On Tue12/30/20 at 0800, Pre-op (day of surgery) 0833 (Given - Provider: ALMA Moore CRNA - Comment: IVPB slow)1006 (Given - Provider: AMLA Moore CRNA) lisinopril (PRINIVIL;ZESTRIL) tablet 20 mg(Linked Group 1) 20 mg, Oral, DAILY, First dose on Tue12/30/20 at 1645 1652 (Not Given - Provider: Ale Sutton RN - Reason: Patient/family refused) 0912 (Not Given - Provider: Ale Sutton RN - Reason: Patient/family refused) 0817 (Not Given - Provider: Fabiola Nayak RN - Reason: Patient/family refused) pantoprazole (PROTONIX) tablet 40 mg 40 mg, Oral, DAILY BEFORE BREAKFAST, First dose on Tue12/31/20 at 0700, Do not crush or break. Substituted for Omeprazole (PRILOSEC). 0625 (Given - Provider: Miguel Ángel Moeller RN) 0658 (Given - Provider: Izabela Sierra LPN) sennosides-docusate sodium (SENOKOT-S) 8.6-50 MG tablet 1 tablet 1 tablet, Oral, 2 TIMES DAILY, First dose on Tue12/30/20 at 2100, Post-op 205 (Given - Provider: Ale Sutton RN) 0854 (Given - Provider: Ale Sutton RN)204 (Given - Provider: Ale Sutton RN) 0816 (Given - Provider: Fabiola Nayak RN)2100 (Due) sodium chloride flush 0.9 % injection 10 mL 10 mL, Intravenous, EVERY 12 HOURS SCHEDULED (2 times per day), First dose on Tue12/30/20 at 2100, Post-op 1654 (Given - Provider: Ale Sutton RN)2153 (Given - Provider: Ale Sutton RN) 1127 (Not Given - Provider: Ale Sutton RN - Reason: Other - Comment: Patient received PRN flush)210 (Given - Provider: Ale Sutton RN) 0817 (Given - Provider: Fabiola Nayak, FATUMA)2100 (Due) Continuous Medication Order 12/30/2020 12/31/2020 01/01/2021 dextrose 5 % and 0.45 % NaCl with KCl 20 mEq infusion Intravenous, at 100 mL/hr, CONTINUOUS, Starting on Tue12/30/20 at 1630, Post-op 1653 (New Bag - Provider: Ale Sutton RN) 0405 (New Bag - Provider: Miguel Ángel Moeller RN)1425 (New Bag - Provider: Ale Sutton RN) 1115 (Stopped - Provider: Fabiola Nayak, FATUMA) PRN Medication Order 12/30/2020 12/31/2020 01/01/2021 0.9 % sodium chloride infusion 25 mL, Intravenous, at 100 mL/hr, PRN, If patient receiving piggyback infusions without ordered maintenance IV fluids or with frequent/long duration piggyback infusions, Starting on Tue12/30/20 at 1607, Administer at the same rate as the piggyback being infused., Post-op bacitracin ointment (CANCELED) PRN, Starting on Tue12/30/20 at 1135, Intra-op 1135 (Given - Provider: Bib Alvarez MD) cyclobenzaprine (FLEXERIL) tablet 10 mg 10 mg, Oral, 3 TIMES DAILY PRN, Muscle spasms, Starting on Tue12/30/20 at 1607 1654 (Given - Provider: Ale Sutton RN) 0405 (Given - Provider: Miguel Ángel Moeller RN)1003 (Given - Provider: Ale Sutton RN)1004 (Canceled Entry - Provider: Ale Sutton RN - Comment: Accidently double charted, patient had received at 10:03AM)1846 (Given - Provider: Ale Sutton RN) 0302 (Given - Provider: Izabela Sierra LPN)1151 (Given - Provider: Fabiola Nayak RN) fentaNYL (SUBLIMAZE) injection 25 mcg (COMPLETED) 25 mcg, Intravenous, EVERY 5 MIN PRN, Pain Moderate (4-6), Starting on Tue12/30/20 at 0745, For 4 doses, Phase I - Initial therapy for moderate pain., PACU only 1214 (Given - Provider: Lian Hutchinson RN)1223 (Given - Provider: Lian Hutchinson RN)1231 (Given - Provider: Lian Hutchinson RN)1246 (Given - Provider: Lian Hutchinson RN) HYDROcodone-acetaminophe n (NORCO) 5-325 MG per tablet 2 tablet (COMPLETED) 2 tablet, Oral, PRN, Pain Severe (7-10), Starting on Tue12/30/20 at 0745, For 1 dose, PHASE II, PACU only 1512 (Given - Provider: Lian Hutchinson RN) HYDROmorphone (DILAUDID) injection 0.5 mg (COMPLETED) 0.5 mg, Intravenous, EVERY 5 MIN PRN, Pain Severe (7-10), Starting on Tue12/30/20 at 0745, For 4 doses, Phase I - Initial therapy for severe pain., PACU only 1204 (Given - Provider: Lian Hutchinson RN)1252 (Given - Provider: Lian Hutchinson RN)1304 (Given - Provider: Lian Hutchinson RN)1316 (Given - Provider: Lian Hutchinson RN) HYDROmorphone (DILAUDID) injection 0.5 mg 0.5 mg, Intravenous, EVERY 3 HOURS PRN, Pain Moderate (4-6), Starting on Tue12/30/20 at 1607, If oral and IV narcotics ordered, use oral first and only use IV if oral is ineffective or cannot take oral. Do Not give oral and IV within 1 hour of each other unless specifically ordered. 1806 (Given - Provider: Ale Sutton RN)2153 (Given - Provider: Ale Sutton RN) 0121 (Given - Provider: Miguel Ángel Moeller RN)0625 (Given - Provider: Miguel Ángel Moeller RN)1127 (Given - Provider: Ale Sutton RN) mastisol adhesive LIQD (CANCELED) PRN, Starting on Tue12/30/20 at 1135, Intra-op 1135 (Given - Provider: Bib Alvarez MD) oxyCODONE-acetaminophen (PERCOCET) 7.5-325 MG per tablet 1 tablet (CANCELED) 1 tablet, Oral, EVERY 6 HOURS PRN, Pain Moderate (4-6), Starting on Tue12/30/20 at 1607, Maximum dose of acetaminophen is 4000 mg from all sources in 24 hours. 165 (Given - Provider: Ale Sutton RN) oxyCODONE-acetaminophen (PERCOCET) 7.5-325 MG per tablet 1 tablet 1 tablet, Oral, EVERY 4 HOURS PRN, Pain Moderate (4-6), Starting on Tue12/30/20 at 1830, Maximum dose of acetaminophen is 4000 mg from all sources in 24 hours. 2052 (Given - Provider: Ale Sutton RN) 0408 (Given - Provider: Miguel Ángel Moeller RN)0853 (Given - Provider: Ale Sutton RN)1426 (Given - Provider: Ale Sutton RN)1845 (Given - Provider: Ale Sutton RN)2253 (Given - Provider: Ale Sutton RN) 0302 (Given - Provider: Izabela Sierra LPN)0816 (Given - Provider: Fabiola Nayak RN)1242 (Given - Provider: Fabiola Nayak RN) rOPINIRole (REQUIP) tablet 1 mg 1 mg, Oral, NIGHTLY PRN, restless leg, Starting on Tue12/31/20 at 2100 sodium chloride 0.9 % 1,000 mL with gentamicin (GARAMYCIN) 80 mg (CANCELED) PRN, Starting on Tue12/30/20 at 0925, Intra-op 0925 (Given - Provider: Bib Alvarez MD) sodium chloride 0.9 % 1,000 mL with heparin (porcine) 30,000 Units (CANCELED) PRN, Starting on Tue12/30/20 at 0926, Intra-op 0926 (Given - Provider: Bib Alvarez MD - Comment: CELL SAVER) sodium chloride 0.9 % irrigation (COMPLETED) CONTINUOUS PRN, Starting on Tue12/30/20 at 0854, Intra-op 0854 (New Bag - Provider: Bib Alvarez MD - Comment: PRN)0855 (New Bag - Provider: Bib Alvarez MD - Comment: MALIS BIPOLAR - PRN)0926 (New Bag - Provider: Bib Alvarez MD - Comment: CELL SAVER - PRN) sodium chloride flush 0.9 % injection 10 mL 10 mL, Intravenous, PRN, Line Care, Starting on Tue12/30/20 at 1607, After every IV line use, Post-op 1127 (Given - Provider: Ale Sutton RN) thrombin kit (CANCELED) PRN, Starting on Tue12/30/20 at 0926, Intra-op 0926 (Given - Provider: Bib Alvarez MD - Comment: PRN) No Frequency Medication Order 12/30/2020 12/31/2020 01/01/2021 lactated ringers infusion (COMPLETED) Starting on Tue12/30/20 at 0804, For 1 dose, Kiana Daniels: cabinet override 0811 (New Bag - Provider: Kiana Canas, RN) lactated ringers infusion (COMPLETED) Starting on Tue12/30/20 at 0805, For 1 dose, Kiana Daniels: cabinet override 0810 (New Bag - Provider: Kiana Canas, RN) Linked Groups Order Group 1: amLODIPine (NORVASC) tablet 10 mgJump to med 10 mg, Oral, DAILY, First dose on Tue12/30/20 at 1645 And lisinopril (PRINIVIL;ZESTRIL) tablet 20 mgJump to med 20 mg, Oral, DAILY, First dose on Tue12/30/20 at 1645 Source Comments (unrecognize d section and content) In the event this informatio n is protected by the [facility] Confidentiality of Alcohol and Drug Abuse Patient Records regulations: The Federal rules restrict any use of the information to criminally investigate or prosecute any alcohol or drug abuse patient.[facility] the event this information is protected by the Federal Confidentiality of Alcohol and Drug Abuse Patient Records regulations: The Federal rules restrict any use of the information to criminally investigate or prosecute any alcohol or drug abuse patient.[facility] Hospital[facility] the event this information is protected by the Federal Confidentiality of Alcohol and Drug Abuse Patient Records regulations: The Federal rules restrict any use of the information to criminally investigate or prosecute any alcohol or drug abuse patient.[facility] Hospital[facility] the event this information is protected by the Federal Confidentiality of Alcohol and Drug Abuse Patient Records regulations: The Federal rules restrict any use of the information to criminally investigate or prosecute any alcohol or drug abuse patient.[facility] HospitalIn the event this information is protected by the Federal Confidentiality of Alcohol and Drug Abuse Patient Records regulations: The Federal rules restrict any use of the information to criminally investigate or prosecute any alcohol or drug abuse patient.[facility] Hospital[facility] the event this information is protected by the Federal Confidentiality of Alcohol and Drug Abuse Patient Records regulations: The Federal rules restrict any use of the information to criminally investigate or prosecute any alcohol or drug abuse patient.[facility] Hospital[facility] the event this information is protected by the Federal Confidentiality of Alcohol and Drug Abuse Patient Records regulations: The Federal rules restrict any use of the information to criminally investigate or prosecute any alcohol or drug abuse patient.[facility] Hospital[facility] the event this information is protected by the Federal Confidentiality of Alcohol and Drug Abuse Patient Records regulations: The Federal rules restrict any use of the information to criminally investigate or prosecute any alcohol or drug abuse patient.[facility] HospitalIn the event this information is protected by the Federal Confidentiality of Alcohol and Drug Abuse Patient Records regulations: The Federal rules restrict any use of the information to criminally investigate or prosecute any alcohol or drug abuse patient.[facility] Hospital[facility] the event this information is protected by the Federal Confidentiality of Alcohol and Drug Abuse Patient Records regulations: The Federal rules restrict any use of the information to criminally investigate or prosecute any alcohol or drug abuse patient.[facility] HospitalIn the event this information is protected by the Federal Confidentiality of Alcohol and Drug Abuse Patient Records regulations: The Federal rules restrict any use of the information to criminally investigate or prosecute any alcohol or drug abuse patient.[facility] HospitalIn the event this information is protected by the Federal Confidentiality of Alcohol and Drug Abuse Patient Records regulations: The Federal rules restrict any use of the information to criminally investigate or prosecute any alcohol or drug abuse patient.[facility] HospitalIn the event this information is protected by the Federal Confidentiality of Alcohol and Drug Abuse Patient Records regulations: The Federal rules restrict any use of the information to criminally investigate or prosecute any alcohol or drug abuse patient.[facility] HospitalIn the event this information is protected by the Federal Confidentiality of Alcohol and Drug Abuse Patient Records regulations: The Federal rules restrict any use of the information to criminally investigate or prosecute any alcohol or drug abuse patient.[facility] HospitalIn the event this information is protected by the Federal Confidentiality of Alcohol and Drug Abuse Patient Records regulations: The Federal rules restrict any use of the information to criminally investigate or prosecute any alcohol or drug abuse patient.[facility] HospitalIn the event this information is protected by the Federal Confidentiality of Alcohol and Drug Abuse Patient Records regulations: The Federal rules restrict any use of the information to criminally investigate or prosecute any alcohol or drug abuse patient.[facility] HospitalIn the event this information is protected by the Federal Confidentiality of Alcohol and Drug Abuse Patient Records regulations: The Federal rules restrict any use of the information to criminally investigate or prosecute any alcohol or drug abuse patient.[facility] Care Teams (unrecognized sec tion and content) Chemical Processor Relationship Specialty Start Date End Date Cristiano Graham Sr. [address] [place] [address] PCP - General Family Practice 12/02/21 Vick Maxwell MD [address] [place] [address] Referring Pain Management 12/02/21 Team Status: Inactive Member Role Status Dates Cristiano Graham DO Primary Care Provider Active Jory Ulrich PA-C Attending Provider Active Team Status: Active Member Role Status Dates Cristiano Graham DO Primary Care Provider Active Team Status: Inactive Member Role Status Dates Cristiano Graham DO Primary Care Provider, Attending Pr ovider Active Chemical Processor Relationship Specialty Start Date End Date Cristiano Graham Sr. [address] [place] [address] PCP - General Family Medicine 12/02/21 Vick Maxwell MD [address] [place] [address] Referring Pain Management 12/02/21 Chemical Processor Relationship Specialty Start Date End Date Cristiano Graham Sr. [address] [place] [facility] [place] [address] PCP - General Family Medicine 12/02/21 Vick Maxwell MD [address] [place] [address] Referring Pain Management 12/02/21 Chemical Processor Relationship Specialty Start Date End Date Cristiano Graham Sr. [address] [place] [place] [address] PCP - General Family Medicine 12/02/21 Vick Maxwell MD [address] [place] [address] Referring Pain Management 12/02/21 Chemical Processor Relationship Specialty Start Date End Date Cristiano Graham Sr. [address] [place] [facility] [place] [address] PCP - General Family Medicine 12/02/21 Vick Maxwell MD [address] [place] [address] Referring Pain Management 12/02/21 Chemical Processor Relationship Specialty Start Date End Date Cristiano Graham Sr. [address] [place] [facility] [place] [address] PCP - General Family Medicine 12/02/21 Vick Maxwell MD [address] [place] [address] Referring Pain Management 12/02/21 Chemical Processor Relationship Specialty Start Date End Date Cristiano Graham Sr. [address] [place] [facility] [place] [address] PCP - General Family Medicine 12/02/21 Vick Maxwell MD [address] [place] [address] Referring Pain Management 12/02/21 Team Status: Inactive Member Role Status Dates Cristiano Graham , Primary Care Provider Active Michel Venegas MD Attending Provider Active Chemical Processor Relationship Specialty Start Date End Date Cristiano Graham Sr. [address] [place] [facility] [place] [address] PCP - General Family Medicine 12/02/21 Vick Maxwell [place] [address] [place] [address] Referring Pain Management 12/02/21 Chemical Processor Relationship Specialty Start Date End Date Cristiano Graham Sr. [address] [place] [facility] [place] [address] PCP - General Family Medicine 12/02/21 Vick Maxwell [place] [address] [place] [address] Referring Pain Management 12/02/21 Chemical Processor Relationship Specialty Start Date End Date Cristiano Graham Sr. [address] [place] [facility] [place] [address] PCP - General Family Medicine 12/02/21 Vick Maxwell MD [address] [place] [address] Referring Pain Management 12/02/21 Team Status: Inactive Member Role Status Dates Cristiano Graham , Primary Care Provider Active Hussani Cristobal , DO Emergency Provider Active Chemical Processor Relationship Specialty Start Date End Date Cristiano Graham Sr. [address] [place] [facility] [place] [address] PCP - General Family Medicine 12/02/21 Vick Maxwell [place] [address] [place] [address] Referring Pain Management 12/02/21 Chemical Processor Relationship Specialty Start Date End Date Cristiano Graham Sr. [address] [facility] [place] [address] PCP - General Family Medicine 12/02/21 Vick Maxwell MD [address] [place] [address] Referring Pain Management 12/02/21 Chemical Processor Relationship Specialty Start Date End Date Cristiano Graham Sr. [address] [facility] [address] PCP - General Family Medicine 12/02/21 Vick Maxwell MD [address] [place] [address] Referring Pain Management 12/02/21 Team Status: Inactive Member Role Status Dates Cristiano DO Santos Primary Care Provider Active Eloy Mcdaniel Attending Provider Active Team Status: Active Member Role Status Dates PHYSICIAN NO FAMILY Primary Care Provider Active Team Status: Inactive Member Role Status Dates PHYSICIAN NO FAMILY Primary Care Provider Active Bar Johnson PA-C Emergency Provider Active Team Status: Inactive Member Role Status Dates Gail Garcia APRN-GERIATRIC NURSE-C Attending Provider Active PHYSICIAN NO FAMILY Primary Care Provider Active Goals (unrecognized section and content) Goals may be documented in a n alternate section FOR RECORDS PERTAINING TO PATIENTS WHO ARE OR HAVE BEEN ENROLLED IN A CHEMICAL DEPENDENCY/SUBSTANCEABUSE PROGRAM, SOME INFORMATION MAY BE OMITTED. This clinical summary was aggregated from multiple sources. Caution should be exercised in using it in the provision of clinical care. This summary normalizes information from multiple sources, and as a consequence, information in this document may materially change the coding, format and clinical context of patient data. In addition, data may be omitted in some cases. CLINICAL DECISIONS SHOULD BE BASED ON THE PRIMARY CLINICAL RECORDS. [employer] [facility] provides no warranty or guarantee of the accuracy or completeness of information in this document.
[2023-09-22] MEDS: KETOROLAC TROMETHAMINE 30 MG/ML VIAL IVP (17:12)
[2023-09-22] MEDS: ORPHENADRINE 60 MG/ 2 ML VIAL IV (17:12)
[2023-09-22] MEDS: METHYLPREDNISOLONE SOD SUCC PF 125 MG/2 ML VIAL IVP (17:13)
[2023-09-22] MEDS: 0.9 % SODIUM CHLORIDE 1,000 ML 999 ML IV (17:18)
--- NOTE | 2023-09-22 17:36 | CT_ITS ---
The [address] [address] Patient Name: GREGG ROY MRN: [facility]:[id number] date: 1975 Sex: F Assigned Patient Location: ER Current Patient Location: ER Accession/Order Number: [id number] Exam Date: 09/22/2023 17:29 Report Date: 09/22/2023 17:51 At the request of: RICARDO KING Procedure: CT lumbar spine wo con EXAM: CT scan of the lumbar spine with IV contrast. Dose reduction technique used: Automated exposure control and/or adjustment of the mA and/or kV according to patient size and/or use of iterative reconstruction technique. REASON FOR EXAM: radicular low back pain COMPARISON: CT scan dated 10/07/2022 FINDINGS: No fractures, dislocations or acute malalignment of the lumbar spine. L3-L5 posterior jennifer and pedicle screw fusion with laminectomies, hardware is intact. Advanced L2-L3 degenerative disc change. Reversal of the lumbar cervical lordosis. Multilevel lumbar spinal canal stenoses, this is likely worse at the L2-L3 level related to a prominent posterior disc osteophyte calcification where the spinal canal stenosis is likely at least moderate although metallic artifact somewhat limits evaluation of the spinal canal at multiple levels. Multilevel bilateral mild and moderate lumbar neural foraminal stenoses. Remainder unremarkable. CT/CT lumbar spine wo con IMPRESSION: 1. No acute lumbar spine abnormalities. 2. L2-L3 advanced degenerative disc changes and posterior disc ossify complex causing spinal canal stenosis that is at least moderate. 3. L3-L5 posterior jennifer and pedicle screw fusion with laminectomies. Electronically authenticated by: MARIO PELAEZ Date: 09/22/2023 17:51
[2023-09-22] MEDS: DIAZEPAM 10 MG/2 ML SYRINGE 2 MG IV (18:07)
[2023-09-22] MEDS: HYDROMORPHONE HCL 1 MG/ML CARTRIDGE IM (19:24)
[2023-09-22] MEDS: ONDANSETRON 4 MG RAPDIS TABLET SL (19:24)
== END 2023-09-22 19:29 | disposition home or self-care (01) ==
PROVIDERS: Emergency Provider Emergency Medicine
DX: M54.50 Low back pain, unspecified (principal); Z98.890 Other specified postprocedural states; Z79.899 Other long term (current) drug therapy; F17.200 Nicotine dependence, unspecified, uncomplicated
CPT/HCPCS: 72131; 96372; 96374; 96375; 99285; J1170; J1885; J2360; J2930; J3360; Q0162

== ENCOUNTER 2025-03-15 18:26 | Emergency (ER) | payer OTHER, SELFPAY ==
[2025-03-15] VITALS (26 sets, daily range): BP systolic 66–145; BP diastolic 33–107; PULSE 76–91; RESP 16; O2SAT 70–100
--- NOTE | 2025-03-15 18:26 | ECG_ITS ---
The [facility] Test Date: 2025-03-15 Pat Name: GREGG ROY Department: Room: - Gender: Female Global Manager: : 1975 Requested By: [id number] Order Number: [id number] Reading MD: CARMELA GAVIRIA M.D. Measurements Intervals [place] Rate: 84 P: -[id number] ME: 135 QRS: 77 QRSD: 96 T: 71 QT: 380 QTc: 421 Interpretive Statements Normal sinus rhythm ARTIFACT IN LEAD(S) Normal ECG Compared to ECG 04/25/2020 13:27:31 Possible ischemia no longer present Electronically Signed On 03-16-2025 21:30:14 EDT by CARMELA GAVIRIA M.D.
--- NOTE | 2025-03-15 18:26 | XR_ITS ---
The [address] [address] Patient Name: GREGG ROY MRN: [id number] date: 1975 Sex: F Assigned Patient Location: ED.MAIN Current Patient Location: ER Accession/Order Number: [id number] Exam Date: 03/15/2025 19:22 Report Date: 03/15/2025 19:24 At the request of: RIGO ANAND Procedure: XR chest 1V PA CHEST: CLINICAL HISTORY: SOB COMPARISON: CT chest 08/04/2022 Unremarkable cardiomediastinal. Left lung is grossly clear. Confluent right mid to lower lung opacity suggestive of pneumonia. No pneumothorax. No definite effusion. XR/XR chest 1V IMPRESSION: RIGHT LUNG CONSOLIDATION WORRISOME FOR PNEUMONIA. RECOMMEND FOLLOW-UP FOLLOWING MEDICAL TREATMENT COURSE TO DOCUMENT RESOLUTION. Impression dictated by: Tim Keller M.D. 03/15/2025 7:24 PM Dictation Location: [place] [address] Electronically authenticated by: [id number] Y Date: 03/15/2025 19:24
--- NOTE | 2025-03-15 18:34 | PC.NURSE ---
resp at bedside, BiPap started
--- OUTSIDE RECORDS SUMMARY | 2025-03-15 18:35 | XMS_ITS | CCD ---
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 Admitting Unavailable KIM, BIB H. Attending Unavailable RENSSELAER, CRISTIANO Barnes Primary Care Unavailable LUKE WILKINS Referring Unavailab le RENSSELAER, CRISTIANO Barnes Primary Care Unavailable KIM, BIB HGregg Attending Unavailable KIM, BIB H. Referring Unavailable Vick Maxwell MD Unavailable Higden Sr., Cristiano Dockery Primary Care Provider Jak Steele Unavailable [phone] Vick Maxwell Unavailable DO Cristiano Graham Primary Care Provider ZANDER Ulrich Attending Provider Michel Venegas Unavailable DO Cristiano Graham Primary Care Provider ZANDER Ulrich Attending Provider DO Cristiano Graham Attending Provider [phone] Vick Maxwell MD Unavailable Higden Sr., Cristiano Dockery Primary Care Provider DO Cristiano Graham Primary Care Provider MD Michel Venegas Attending Provider DAVID COLON Attending Unavailable DAVID COLON Admitting Unavailable DR ERIC HE Consulting Unavailable SANTOS, DR QUINONEZ Primary Care Unavailable DAVID COLON Consulting Unavailable LEE MARTINEZ Consulting Unavailable ALOK COELHO Consulting Unavailable NERI, DR ERIC Juárez Consulting Unavailable HOUSE, DR QUINONEZ Primary Care Unavailable ISABEL, JAMEL Admitting Unavailable ISABEL, JAMEL Attending Unavailable JAMEL HALL Consulting Unavailable HELIO, DR SPRAGUE Admitting Unavailable HOUSE, DR QUINONEZ Primary Care Unavailable HAY, DR SPRAGUE Consulting Unavailable HAY, DR SPRAGUE Attending Unavailable CRISTIANO GRAHAM Primary Care Unavailable Isai, KIKA Aranda Attending Unavailable Isai, KIKA Aranda Admitting Unavailable Isai, KIKA Aranda Attending Unavailable Alex, KIKA Aranda Admitting Unavailable CRISTIANO GRAHAM Primary Care Unavailable Santos, DO Quinonez Primary Care Provider [phone] MD Michel Venegas Attending Provider [phone] DO Hussain Cristobal Emergency Provider TOO HUGHES Attending Unavailable HOUSE SR, CRISTIANO [facility] Unavaaubrie clarke RENSSELAER SR, CRISTIANO [facility] TOO Walker Referring Unavailable TOO HUGHES Attending Unavailable LEI MARTINEZ Referring Unavailable RENSSELAER SR, CRISTIANO [facility] UnaSobeida Wallace Unavailable DO Cristiano Graham Primary Care Provider Eloy Mcdaniel Attending Provider Cristiano Graham Primary Care Physician [phone] SOBEIDA WHITNEY Referring Unavailable Star Sherman Attending Unavailable Star Sherman Admitting Unavailable NO FAMILY, PHYSICIAN Primary Care Provider Unava ilZANDER Gusman Emergency Provider [phone] DO Cristiano Graham Primary Care Provider [phone] Eloy Mcdaniel Attending Provider [phone] NO FAMILY, PHYSICIAN Primary Care Provider Unava ZANDER Bey Emergency Provider ROXANA Garcia Attending Provider NO FAMILY, PHYSICIAN Primary Care Provider Unava DO Nabil Vega Emergency Provider PREM DING Attending Unavailable HOUSE SR, CRISTIANO Barnes Primary Care Unavailable PREM DING Admitting Unavailable HOUSE SR, CRISTIANO P Primary Care Unavailable PETER STINSON Admitting Unavailable PETER STINSON Attending Unavailable RIGO IRENE Consulting Unavailable PREM DING Consulting Unavailable HAKAN MOE Consulting Unavailable JORDYN GTZ Consulting Unavaila PREM [place] Referring Unavailable HOUSE SR, CRISTIANO P Primary Care Unavailable House Sr., Cristiano CARBONE Primary Care Provider Unavailable Primary Care Provider Unavailabl e NO FAMILY, PHYSICIAN Primary Care Provider Unava ilable Hussain Cristobal DO Emergency Provider ELOY MCDANIEL Referring Unavailable LORA POWER Attending Unavailable ZORAIDA BECKMAN Attending Unavailable PREM DING Referring Unavailable LORA POWER Referring Unavailable CIERA EGAN Attending Unavailable MADY COOK Referring Unavailable CIERA EGAN Attending Unavailable PREM DING Referring Unavailable RIO RAMIREZ Attending Unavailable RIO RAMIREZ Referring Unavailable Lora Power Admitting Unavailable Lora Power Attending Unavailable NO FAMILY, PHYSICIAN Primary Care Unavailable NO FAMILY, PHYSICIAN Primary Care Unavailable Hussain Cristobal Admitting Unavailable Hussain Cristobal Attending Unavailable SANTOS GROVE, CRISTIANO P Primary Care Unavailable MADY COOK Attending Unavailable MADY COOK Referring Unavailable Allergies Allergy Classification Reported Allergen(s) Allergy Type Date of Onset Reaction(s) Facility (1 source) No Known Medication Allergies; Translations: [No Known Medication Allergies] Propensity to adverse reactions (disorder) [facility] Repository Medications Current Medications Medication Drug Class(es) Dates Sig (Normalized) Sig (Original) [id number] 200 actuat albuterol 0.09 mg/actuat metered dose inhaler (9 sources) beta2-Adrenergic Agonist Start: 05-22-2024 take 2 puff(s) by inhalation every four hours for wheezing albuterol HFA 90 mcg/act inhaler Indications: Inspiratory pain , Closed fracture of multiple ribs of left side, initial encounter Inhale 2 puffs every 4 (four) hours if needed for wheezing or shortness of breath 18 g 05/22/2024 Active Start: 10-11-2023 take 2 puff(s) by in halation every six hours as needed 2 puff, Inhalation, EVERY 6 HOURS PRN, Starting on Tue10/11/23 at 1817, Until Discontinued, Wheezing Initiate RT Bronchodilator Protocol: Yes - Inpatient Protocol albuterol CFC free 90 mcg/inh inhalation aerosol (1 source) Start: 02-24-2021 albuterol CFC free 90 mcg/inh inhalation aerosol Refills(s) 0 Start Date: 02/24/21 Status: Ordered amLODIPine (1 source) Dihydropyridine Calcium Channel Andre Start: 12-30-2020 amLODIPine (NORVASC) tablet 10 mg amLODIPine 10 mg / benazepril hydrochloride 20 mg oral capsule (13 sources) Dihydropyridine Calcium Channel Andre, Angiotensin Converting Enzyme Inhibitor Start: 12-12-2020 amLODIPine-benazepr il (LOTREL) 10-20 MG per capsule Take by mouth daily 0 12/12/2020 Active Start: 11-10-2020 amLODIPine-paulo azepril (LOTREL) 10-20 mg per capsule 0 11/10/2020 Active atomoxetine 60 mg oral capsule (2 sources) Norepinephrine Reuptake Inhibitor Start: 10-19-2024 End: 10-19-2025 take 1 capsule by mouth once daily atomoxetine (Strattera) 60 MG capsule 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 If opened accidentally, do not touch eyes; wash hands immediately (product is an eye irritant). 90 capsule 3 10/19/2024 10/19/2025 Active benzonatate 100 mg oral capsule (4 sources) Non-narcotic Antitussive Start: 05-22-2024 take 1 capsule by mouth three times daily as needed for cough benzonatate (Tessalon Perles) 100 MG capsule Indications: Chronic cough Take 1 capsule (100 mg) by mouth 3 (three) times a day as needed for cough Do not crush or chew. 21 capsule 05/22/2024 Active buprenorphine 8 mg / naloxone 2 mg sublingual film (20 sources) Partial Opioid Agonist, Opioid Antagonist Start: 09-26-2023 Buprenorphine-Nalo xone 8-2 mg film Active 2.5 FILM BUCCAL Daily September 26, 2023 12:00am Start: 10-26-2019 buprenorphine- nalOXone SL (SUBOXONE) 8-2 mg subl Dissolve under the tongue. 0 10/26/2019 Active Start: 10-26-2019 buprenorphine- naloxone (SUBOXONE) 8-[address] tablet [address] under the tongue daily. 0 10/26/2019 Active Buprenorphine HC l-Naloxone HCl (Suboxone) 8-2 MG SL film DISSOLVE 2.5 films SUBCUTANEOUSLY (UNDER THE SKIN) ONCE DAILY Active buprenorphine-na loxone (SUBOXONE) 8-[address] 2.5 Film under the tongue daily. Active take 1 tablet by shruthi th every twenty-four hours Buprenorphine HCl-Naloxone HCl 8-2 MG 1 tablet under the tongue and allow to dissolve Sublingual Once a day Active Suboxone Active Comment on above: Dissolve under the t ongue. busPIRone hydrochloride 7.5 mg oral tablet (18 [...] oral capsule (3 sources) Cephalosporin Antibacterial Start: End: take 1 capsule by mouth three times daily cephALEXin (KEFLEX) 500 MG capsule Take 1 capsule by mouth 3 times daily for 7 days 21 capsule 0 01/01/2021 01/08/2021 Active cyclobenzaprine hydrochloride 10 mg oral tablet (20 sources) Muscle Relaxant Start: 025 take 1 tablet by mouth in the morning, then take 1 tablet by mouth in the evening, then take 1 tablet by mouth at bedtime cyclobenzaprine (Flexeril) 10 MG tablet Indications: Status post lumbar spinal fusion Take 1 tablet (10 mg) by mouth in the morning and 1 tablet (10 mg) in the evening and 1 tablet (10 mg) before bedtime. Do all this for 10 days. 30 tablet 2 10/19/2024 Active Start: 12-30-2020 take 10 mg by mouth three times daily as needed for muscle spasms 10 mg, Oral, 3 TIMES DAILY PRN, Muscle spasms, Starting on Tue12/30/20 at 1607 Start: 02-21-2020 cyclobenzaprin e (FLEXERIL) 10 mg tablet Take 10 mg by mouth. 0 02/21/2020 Active take 1 tablet by shruthi th every twenty-four hours Cyclobenzaprine HCl 10 MG 1 tablet at bedtime as needed Orally Once a day Active Comment on above: Take 10 mg by mouth. diazePAM 5 mg oral tablet (2 sources) Benzodiazepine Start: 11-21-19 25 diazePAM (Valium) 5 MG tablet Indications: Claustrophobia (CMS/HCC) Take 1 tablet (5 mg) by mouth 1 (one) time if needed for anxiety (1 po 30 minutes prior to MRI and may repeat x 1) for up to 2 doses 2 tablet 11/20/2024 Active dicyclomine hydrochloride 20 mg oral tablet (14 sources) Anticholinergic Start: 10-14-19 23 take 1 tablet by mouth every six hours Start: 2020 End: 09-16-2022 take 1 tablet by mouth three times daily as needed for pain Dicyclomine 20 mg tablet Discontinued 20 MG PO Three times daily as needed for pain 2020 12:00am September 16, 2022 9:27am docusate sodium 50 mg / sennosides, assisted 8.6 mg oral tablet (3 sources) Start: [...] 12-30-2020 fentaNYL (SUBLIMAZE) injecti on 25 mcg 500 ml glucose 50 mg/ml / potassium chloride 0.02 meq/ml / sodium chloride 4.5 mg/ml injection (1 source) Start: 12-30-2020 Intravenous, at 100 mL/hr, CONTINUOUS, Starting on Tue12/30/20 at 1630, Post-op hydroCHLOROthiazide 12.5 mg oral tablet (1 source) Thiazide Diuretic Start: 10-11-2023 hydroCHLOROthiazide tablet 12.5 mg hydroCHLOROthiazide 12.5 mg / lisinopril 20 mg oral tablet (20 sources) Thiazide Diuretic, Angiotensin Converting Enzyme Inhibitor Start: 07-22-2023 lisinopril-hydroCHLOROthi azide 20-12.5 MG tablet 07/22/2023 Active Start: 09-20-2022 take 1 tablet by shruthi th once daily lisinopril-hydroCHLOROthiazide (PRINZIDE;ZESTORETIC) 20-12.5 MG per tablet Take 1 tablet by mouth daily 09/20/2022 Active take 10-12.5 mg by mouth once lisinopril-hydroCHLOROthiazide (PRINZIDE,ZESTORETIC) 10-12.5 mg per tablet Take 1 tablet by mouth once daily. 0 Active Lisinopril-hydro CHLOROthiazide Active lisinopril-hydro CHLOROthiazide (PRINZIDE;ZESTORETIC) 10-12.5 MG per tablet daily 0 Active Comment on above: Take 1 tablet by shruthi th once daily. ibuprofen 600 mg oral tablet (6 sources) Nonsteroidal Anti-inflammatory Drug Start: 04-12-2023 take 600 mg by mouth three times daily ibuprofen 600 mg, Oral, TID, Refills(s) 0 Start Date: 04/12/23 Status: Ordered End: 10-11-2023 take 1 tablet by mouth every eight hours as needed for pain ibuprofen (ADVIL;MOTRIN) 600 MG tablet Take 1 tablet by mouth every 8 hours as needed for Pain 0 10/11/2023 Discontinued (Stop Taking at Discharge) lidocaine 0.05 mg/mg medicated patch (2 sources) Antiarrhythmic, Amide Local Anesthetic Start: 09-27-2024 End: 10-27-2024 lidocaine (Lidoderm) 5 % patch Indications: PHN (postherpetic neuralgia) (CMS/HCC) Apply 2 patches over 12 hours topically Daily Remove & discard patch within 12 hours or as directed by MD. 60 patch 2 09/27/2024 10/27/2024 Active lisinopril 20 mg oral tablet (9 sources) Angiotensin Converting Enzyme Inhibitor Start: 09-16-2022 lisinopril (PRINIVIL;ZESTRIL) tablet 20 mg LORazepam 0.5 mg oral tablet (1 source) Benzodiazepine Start: 12-25-2024 End: 12-26-2024 take 1 tablet by mouth once LORazepam (Ativan) 0.5 MG tablet Indications: Claustrophobia (CMS/HCC) Take 1 tablet (0.5 mg) by mouth every 12 (twelve) hours if needed for anxiety for up to 1 day 2 tablet 12/25/2024 12/26/2024 Active methylPREDNISolone (3 sources) Corticosteroid Start: 05-22-2024 End: 05-29-2024 methylPREDNISolone (Medrol Dospak) 4 MG tablets Indications: Chronic cough , Rib pain on left side , Inspiratory pain , Closed fracture of multiple ribs of left side, initial encounter Follow schedule on package instructions 21 tablet 05/22/2024 05/29/2024 Active Start: 09-29-2023 End: 10-11-2023 methylPREDNISolone (MEDROL, RADHA,) 4 MG tablet Take by mouth. 1 kit 0 09/29/2023 10/11/2023 Discontinued (Therapy completed) metroNIDAZOLE 7.5 mg/ml topical cream (6 sources) Nitroimidazole Antimicrobial Start: 03-12-2024 metroNIDAZOLE (Metrocream) 0.75 % cream APPLY a thin layer to breakouts on face once or twice a day 03/12/2024 Active mometasone furoate 1 mg/ml topical cream (6 sources) Corticosteroid Start: 03-12-2024 mometasone (El kalee) 0.1 % cream APPLY a thin layer to face TWICE DAILY up to 3 (THREE) weeks then NEEDED FOR ITCHING 03/12/2024 Active morphine (PF) injection 2 mg (1 source) Start: 10-11-2023 morphine (PF) injection 2 mg omeprazole 40 mg delayed release oral capsule (20 sources) Proton Pump Inhibitor Start: 09-26-2023 omeprazo le (PriLOSEC) [address] capsule Daily 09/26/2023 Active Start: 02-24-20[address] [facility] once daily omeprazole 20 mg Cap-DR 20 mg = 1 cap(s), Oral, Daily, # 30 cap(s), Refills(s) 0 Start Date: 02/24/21 Status: Ordered Start: 09-14-2020 omeprazole (ND ILOSEC) 20 MG delayed release capsule 2 capsules Daily 09/14/2020 Active Comment on above: 40 mg. ondansetron (ZOFRAN-ODT) disintegrating tablet 4 mg (1 source) Start: ondansetron (ZOFRAN-ODT) disintegrating tablet 4 mg QUEtiapine 200 mg oral tablet (7 sources) Atypical Antipsychotic Start: take 1 tablet by mouth in the morning QUEtiapine (SEROquel) 200 MG tablet Take 1 tablet by mouth in the morning and 1 tablet before bedtime. 04/20/2024 Active tiZANidine 4 mg oral tablet (20 sources) Central alpha-2 Adrenergic Agonist Start: take 1 tablet by mouth every eight hours as needed tiZANidine (ZANAFLEX) 4 MG tablet Take 1 tablet by mouth every 8 hours as needed 12/25/2023 Active Start: 10-11-2023 take 2 mg by mouth e very eight hours as needed 2 mg, Oral, EVERY 8 HOURS PRN, Starting on Tue10/11/23 at 1817, Until Discontinued, Muscle spasms Start: 10-11-2023 End: 10-26-2023 take 1 tablet by mouth three times daily as needed for pain tiZANidine (ZANAFLEX) 2 MG tablet Take 1 tablet by mouth 3 times daily as needed (muscle pain) 40 tablet 0 10/11/2023 10/26/2023 Active Start: 09-16-2022 take 1 capsule by mo uth once daily at bedtime as needed Tizanidine (Zanaflex) 4 mg Capsule Active 4 MG PO Daily at bedtime as needed for Pain September 16, 2022 12:00am 1-3 tabs Start: 08-19-2022 End: 10-11-2023 tiZANidine (ZANAFLEX) tablet 4 mg take 3 tablets by mo uth at bedtime as needed tiZANidine (Zanaflex) 4 MG tablet TAKE 3 TABLETS BY MOUTH AT BEDTIME NEEDED Active Comment on above: take 2 to 3 tablets by mouth at bedtime if needed vitamin B12 (20 sources) Vitamin B12 Start: 01-04-2024 cyanocobalamin 1000 MCG/ML injection Inject 1 mL into the muscle every 7 days 01/04/2024 Active Start: 12-30-2020 inject 1000 ug by in tramuscular injection every 30 days 1,000 mcg, Intramuscular, EVERY 30 DAYS, First dose on Tue12/30/20 at 1630 Start: 12-02-2020 cyanocobalamin 1000 MCG/ML injection Inject 1,000 mcg into the muscle every 30 days 0 12/02/2020 Active Start: 12-02-2020 inject 1 mL by subcu taneous injection every month cyanocobalamin (VITAMIN B-12) 1,000 mcg/mL Inject 1 mL subcutaneously once every month. 1 mL 3 12/02/2020 Active Comment on above: Inject 1 mL subcutan eously once every month. vitamin B12 1 MG/ML Injectable Solution [Dodex] (1 source) Start: 04-12-20 inject 1000 ug by intramuscular injection every month Dodex 1000 mcg/mL injectable solution 1,000 mcg, IntraMuscular, qMonth, Refills(s) 0 Start Date: 04/12/23 Status: Ordered Completed/Discontinued Medications Medication Drug Class(es) Dates Sig (Normalized) Sig (Original) acetaminophen 325 mg oral tablet (4 sources) Start: 10-11-2023 take 650 mg by mouth every four hours as needed 650 mg, Oral, EVERY 4 HOURS PRN, Starting on Tue10/11/23 at 1817, Until Discontinued, Pain Mild (1-3), Pain (1-10), Post-op Start: 10-11-2023 End: 10-11-2023 acetaminophen (TYLENOL) tabl et 500 mg End: 10-11-2023 take 2 tablets by mouth every eight hours as needed for pain acetaminophen (TYLENOL) 500 MG tablet Take 2 tablets by mouth every 8 hours as needed for Pain 0 10/11/2023 Discontinued (Stop Taking at Discharge) take 2 tablets by mo [facility] every six hours as needed for pain acetaminophen (TYLENOL) 325 MG tablet Take 650 mg by mouth every 6 hours as needed for Pain 0 Active acetaminophen 325 mg / oxyCODONE hydrochloride 5 mg oral tablet (17 sources) Opioid Agonist Start: 10-11-2023 take 2 tablets by mouth every four hours as needed 2 tablet, Oral, EVERY 4 HOURS PRN, Starting on Tue10/11/23 at 1817, Until Discontinued, Pain Severe (7-10) Maximum dose of acetaminophen is 4000 mg from all sources in 24 hours. Post-op Start: 10-11-2023 take 1 tablet by [facility] every four hours as needed 1 tablet, Oral, EVERY 4 HOURS PRN, Starting on Tue10/11/23 at 1817, Until Discontinued, Pain Moderate (4-6) Maximum dose of acetaminophen is 4000 mg from all sources in 24 hours. Post-op Start: 10-11-2023 End: 10-11-2023 oxyCODONE-acetaminophen (PER COCET) 5-325 MG per tablet 1 tablet Start: 01-01-2021 End: 01-08-2021 take 1 tablet by mouth every six hours as needed for pain oxyCODONE-acetaminophen (PERCOCET) 7.5-325 MG per tablet Indications: Post-op [...] by mouth every four to six hours as needed for pain Oxycodone-Acetaminophen 5-325 mg Tablet Discontinued 1 TAB PO EVERY 4-6 HOURS as needed for Pain May 09, 2019 11:00pm 2020 10:45am ALPRAZolam 1 mg oral tablet (10 sources) Benzodiazepine Start: 05-10-2019 End: 2020 take 1 tablet by mouth twice daily Alprazolam (Xanax) 1 mg Tablet Discontinued 1 MG PO Twice daily May 09, 2019 11:00pm 2020 10:44am amitriptyline hydrochloride 50 mg oral tablet (20 sources) Tricyclic Antidepressant Start: 10-11-2023 take 50 mg by mouth once daily 50 mg, Oral, NIGHTLY, First dose on Tue10/11/23 at 2100, Until Discontinued Start: 12-30-2020 take 100 mg by mouth once caden y 100 mg, Oral, NIGHTLY, First dose on Tue12/30/20 at 2100 Start: 07-31-2019 take 100 mg by mouth once daily at bedtime amitriptyline 100 mg, Oral, Once a day (at bedtime), Refills(s) 0, Sleep Start Date: 07/31/19 Status: Ordered amitriptyline (E lavil) 100 MG tablet Take 50 mg by mouth at bedtime Active take 0.5 tablet by m outh once daily amitriptyline (ELAVIL) 100 MG tablet Take 0.5 tablets by mouth nightly Active amitriptyline (E LAVIL) 75 mg tablet Take by mouth daily at bedtime. 0 Active amitriptyline (E LAVIL) 75 MG tablet Take 100 mg by mouth nightly 0 Active Comment on above: Take by mouth daily at bedtime. [id number] (4 sources) amLODIPine-Valsa rtan-H CTZ Not-Taking calcium chloride 0.0014 meq/ml / potassium chloride 0.004 meq/ml / sodium chloride 0.103 meq/ml / sodium lactate 0.028 meq/ml injectable solution (3 sources) Start: 10-11-2023 End: 10-11-2023 lactated ringers IV soln infusion Start: 12-30-2020 End: 12-30-2020 lactated ringers infusion carisoprodol 350 mg oral tablet (10 sources) Muscle Relaxant Start: 05-10-2019 End: 2020 take 1 tablet by mouth three times daily Carisoprodol (Soma) 350 mg Tablet Discontinued 350 MG PO Three times daily May 09, 2019 11:00pm 2020 10:45am ceFAZolin 2000 mg injection (1 source) Cephalosporin Antibacterial Start: 12-30-2020 End: 12-31-2020 2,000 mg, Intravenous, EVERY 8 HOURS, 3 doses, First dose on Tue12/30/20 at 1645, Last dose on Tue12/31/20 at 0845, Post-op ceFAZolin (ANCEF) 2000 mg in 0.9% sodium chloride 50 mL IVPB (1 source) Start: 10-11-2023 End: 10-12-2023 2,000 mg, IntraVENous, EVERY 8 HOURS, 2 doses, First dose on Tue10/11/23 at 1845, Last dose on Tue10/12/23 at 0245 Antimicrobial Indications: Surgical Prophylaxis Post-op dexamethasone 2 mg oral tablet (11 sources) Corticosteroid Start: 11-04-2020 dexAMETHasone (DECADRON) 2 mg tablet take 3 tablets by mouth daily for 3 days then 2 for 3 days then 1 for 3 days 0 11/04/2020 Active Comment on above: take 3 tablets by mo [facility] daily for 3 days then 2 for 3 days then 1 for 3 days diclofenac sodium 50 mg delayed release oral tablet (20 sources) Nonsteroidal Anti-inflammatory Drug Start: 10-13-2020 take 1 tablet by mouth three times daily diclofenac, EC, (VOLTAREN) 50 mg EC tablet Take 50 mg by mouth three times daily. 0 10/13/2020 Active Start: 05-10-2019 End: 09-16-2022 Diclofenac Sodium (Voltaren) 1 % Gel Discontinued 1 PERCENT TOPICAL Daily May 09, 2019 11:00pm September 16, 2022 9:27am Start: 05-10-2019 End: 09-16-2022 take 1 tablet by mouth twice daily Diclofenac Sodium 75 mg Tablet,Delayed Release (Dr/Ec) Discontinued 75 MG PO Twice daily May 09, 2019 11:00pm September 16, 2022 9:27am take 1 tablet by shruthi th every twelve hours Diclofenac Sodium 50 MG 1 tablet as needed Orally Twice a day Active take 1 tablet by shruthi th every twenty-four hours Diclofenac Sodium 50 MG 1 tablet Orally Once a day Not-Taking DICLOFENAC PO 3 times daily 0 Active Comment on above: Take 50 mg by mouth three times daily. DULoxetine 60 mg delayed release oral capsule (10 sources) Serotonin and Norepinephrine Reuptake Inhibitor Start: 05-10-20 End: 09-16-19 take 1 capsule by mouth once daily Duloxetine (Cymbalta) 60 mg Capsule,Delayed Release(Dr/Ec) Discontinued 60 MG PO Daily May 09, 2019 11:00pm September 16, 2022 9:28am estrogens, conjugated (assisted) 0.625 mg oral tablet (10 sources) Estrogen Start: 05-10-20 End: 06-17-20 take 1 tablet by mouth once daily Conjugated Estrogens (Premarin) 0.625 mg Tablet Discontinued 0.625 MG PO Daily May 09, 2019 11:00pm June 17, 2023 7:39pm famotidine (PEPCID) 20 mg in sodium chloride (PF) 0.9 % 10 mL injection (1 source) Start: 10-11-19 End: 10-11-19 famotidine (PEPCID) 20 mg in sodium chloride (PF) 0.9 % 10 mL injection fluconazole 50 mg oral tablet (10 sources) Azole Antifungal Start: 05-10-20 End: 09-16-19 take 1 tablet by mouth once daily Fluconazole (Diflucan) 50 mg Tablet Discontinued 50 MG PO Daily May 09, 2019 11:00pm September 16, 2022 9:28am gabapentin 400 mg oral capsule (20 sources) Anti-epileptic Agent Start: 10-11-19 take 800 mg by mouth three times daily 800 mg, Oral, 3 TIMES DAILY, First dose on Tue10/11/23 at 2100, Until Discontinued Start: 04-12-2023 take 800 mg by mouth three times daily gabapentin 800 mg, Oral, TID, Refills(s) 0 Start Date: 04/12/23 Status: Ordered Start: 12-30-2020 take 800 mg by mouth twice scar ly 800 mg, Oral, 2 TIMES DAILY, First dose on Tue12/30/20 at 2100 Start: 2020 take 1 capsule by mo [facility] three times daily Gabapentin 300 mg Capsule Active 300 MG PO Three times daily 2020 12:00am Start: 2020 take 300 mg by mouth twice scar ly Gabapentin Active 300 MG PO Twice daily 2020 12:00am take 1 tablet by shruthi every twenty-four hours Gabapentin 600 MG 1 tablet Orally Once a day Active take 1 tablet by shruthi twice daily gabapentin (NEURONTIN) 800 MG tablet Take 800 mg by mouth 2 times daily. 0 Active Comment on above: Take 300 mg by mouth three times daily. 0.5 ml HYDROmorphone hydrochloride 1 mg/ml prefilled syringe (3 sources) Opioid Agonist Start: 10-11-2023 End: 10-11-2023 HYDROmorphone HCl PF (DILAUDID) injection 0.5 mg Start: 12-30-2020 End: 12-30-2020 take 0.5 mg by mouth every three hours as needed for pain 0.5 mg, Intravenous, EVERY 3 HOURS PRN, Pain Moderate (4-6), Starting on Tue12/30/20 at 1607 If oral and IV narcotics ordered, use oral first and only use IV if oral is ineffective or cannot take oral. Do Not give oral and IV within 1 hour of each other unless specifically ordered. 2 ml ketorolac tromethamine 30 mg/ml cartridge (4 sources) Nonsteroidal Anti-inflammatory Drug, Cyclooxygenase Inhibitor Start: 05-22-2024 End: 05-22-2024 60 mg, Intramuscular, Once, On Tue05/22/24 at 1100, For 1 dose, Max daily dose: 120 mg. Max duration: 5 days total Start: 05-22-2024 End: 05-22-2024 60 mg, Intramuscular, Once, On Tue05/22/24 at 1100, For 1 dose, Max daily dose: 120 mg. Max duration: 5 days total Start: 05-22-2024 End: 05-22-2024 ketorolac (Toradol) injectio n 60 mg Start: 05-22-2024 End: 05-22-2024 ketorolac (Toradol) injectio n 60 mg lansoprazole 30 mg delayed release oral capsule (14 sources) Proton Pump Inhibitor Start: 05-10-2019 End: 09-26-2023 take 1 capsule by mouth once daily Lansoprazole 30 mg Capsule,Delayed Release(Dr/Ec) Discontinued 30 MG PO Daily May 09, 2019 11:00pm September 26, 2023 8:28pm mesalamine 1200 mg delayed release oral tablet (17 sources) Aminosalicylate Start: 09-16-2022 End: 06-17-2023 take 4 tablets by mouth once daily [...] times daily. methocarbamol 750 mg oral tablet (10 sources) Muscle Relaxant Start: 05-10-20 End: 09-16-19 take 1 tablet by mouth every eight hours Methocarbamol 750 mg Tablet Discontinued 750 MG PO Q8H May 09, 2019 11:00pm September 16, 2022 9:29am oxyMORphone hydrochloride 10 mg oral tablet (10 sources) Opioid Agonist Start: 05-10-20 End: 07-26-20 take 1 tablet by mouth every four to six hours as needed for pain Oxymorphone (Opana) 10 mg Tablet Discontinued 10 MG PO EVERY 4-6 HOURS as needed for Pain May 09, 2019 11:00pm 2020 10:45am pantoprazole 40 mg delayed release oral tablet (2 sources) Proton Pump Inhibitor Start: 10-12-19 take 40 mg by mouth once daily before breakfast 40 mg, Oral, DAILY BEFORE BREAKFAST, First dose on Tue10/12/23 at 0700, Until Discontinued Do not crush or break. Substituted for Omeprazole (PRILOSEC). Start: 12-31-2020 pantoprazole ( PROTONIX) tablet 40 mg rOPINIRole 1 mg oral tablet (20 sources) Nonergot Dopamine Agonist Start: 04-12-2023 take 1 mg by mouth once daily as needed 1 mg, Oral, NIGHTLY PRN, Starting on Tue10/11/23 at 1817, Until Discontinued, see chart Start: 12-31-2020 take 1 mg by mouth [...] on above: Take 1 mg by mouth. 5 ml sodium chloride 9 mg/ml injection (7 sources) Start: take 1 dose intravenously twice daily 5-40 mL, IntraVENous, EVERY 12 HOURS SCHEDULED (2 times per day), First dose on Tue10/11/23 at 2100, Until Discontinued For Line Patency: Peripheral IV = 5 mL; Midline or Central Line = 10 mL/lumen. &n bsp;If following IV push medication, administer flush at same rate as the IV push. Flush volume is determined by type of infusion therapy being given. For non-viscous solutions use: Peripheral IV = 5 mL Midline or Central Line = 10 mL/lumen F or viscous solutions (i.e. blood components, parenteral nutrition, contrast media, or after obtaining blood sample) use: Peripheral IV = 10 mL Midline or Central Line = 20 mL/lumen Post-op Start: 10-11-2023 take 1 mL by mouth every hour IntraVENous, at 100 mL/hr, CONTINUOUS, Starting on Tue10/11/23 at 1845 heplock with good po intake Post-op Start: 10-11-2023 IntraVENous, a t 5-250 mL/hr, PRN, if patient receiving piggyback infusions and maintenance fluids are not ordered OR KVO fluids to protect IV site / prevent frequent line interruptions/ long duration, Starting on Tue10/11/23 at 1817 For piggyback infusion, administer at same rate as piggyback for a total of 25 mL. Enter 25 mL into dose field and piggyback rate into rate field of order. If piggyback is infusing at a rate less than 100 mL/hr, enter 25 mL into dose field and 100 mL/hr into rate field of order. For KVO fluids, enter rate of 20 mL/hr or less into rate field of order. Post-op Start: 10-11-2023 take 5-40 mL intrave nously once as needed 5-40 mL, IntraVENous, PRN, Starting on Tue10/11/23 at 1817, Until Discontinued, Line Care, After every IV line use For Line Patency: Peripheral IV = 5 mL; Midline or Central Line = 10 mL/lumen. If following IV push medication, administer flush at same rate as the IV push. Flush volume is determined by type of infusion therapy being given. For non-viscous solutions use: Peripheral IV = 5 mL Midline or Central Line = 10 mL/lumen For viscous solutions (i.e. blood components, parenteral nutrition, contrast media, or after obtaining blood sample) use: Peripheral IV = 10 mL Midline or Central Line = 20 mL/lumen Post-op Start: 12-30-2020 10 mL, Intrave nous, EVERY 12 HOURS SCHEDULED (2 times per [...] rate as the piggyback being infused. Post-op traMADol hydrochloride 50 mg oral tablet (10 sources) Opioid Agonist Start: 05-10-2019 End: 2020 take 1 tablet by mouth every six hours Tramadol 50 mg Tablet Discontinued 50 MG PO Q6H May 09, 2019 11:00pm 2020 10:44am divalproex sodium 500 mg delayed release oral tablet (10 sources) Mood Stabilizer, Anti-epileptic Agent Start: 05-10-2019 End: 09-16-2022 take 1 tablet by mouth twice daily Divalproex (Depakote) 500 mg Tablet,Delayed Release (Dr/Ec) Discontinued 500 MG PO Twice daily May 09, 2019 11:00pm September 16, 2022 9:27am ziprasidone 80 mg oral capsule (10 sources) Atypical Antipsychotic Start: 05-10-2019 End: 09-16-2022 take 1 capsule by mouth twice daily [...] STEPS INIT] Onset: 08-10-2022 Episodic Essential hypertension (7 sources) Essential hypertension; Translations: [Essential (primary) hypertension] Onset: 04-25-2020 10-27-2020 Chronic Gastritis and duodenitis (4 sources) Gastritis; Translations: [Gastritis, unspecified, without bleeding] Episodic Gastrointestinal hemorrhage (9 sources) Rectal hemorrhage; Translations: [Hemorrhage of anus and rectum] 09-16-2022 Episodic Mood disorders (3 sources) Depressive disorder; Translations: [Depression] Onset: 10-27-2020 10-26-2019 Chronic Occlusion or stenosis of precerebral arteries (4 sources) Carotid artery stenosis; Translations: [Occlusion and stenosis of unspecified carotid artery] Chronic Other acquired deformities (3 sources) Unspecified kyphosis, site unspecified; Translations: [Kyphosis (acquired) (postural)] Onset: 09-13-2022 Chronic Other acquired deformities (8 sources) Acquired spondylolisthesis; Translations: [Spondylolisthesis, lumbar region] Episodic Other aftercare (1 source) Other manager intermediate (current) drug therapy; Translations: [OTH CUSTODIAL CURRENT DRUG THERAPY] Onset: 09-29-2022 Episodic Other fractures (2 sources) Closed fracture of multiple left ribs; Translations: [Multiple fractures of ribs, left side, initial encounter for closed fracture] 05-22-2024 Episodic Other gastrointestinal disorders (15 sources) Diarrhea; Translations: [Diarrhea] 09-16-2022 Episodic Other gastrointestinal disorders (2 sources) Diarrhea, unspecified; Translations: [Diarrhea] 09-16-2022 Episodic Other gastrointestinal disorders (3 sources) Heartburn; Translations: [Heartburn] Onset: 10-24-2024 10-26-2019 Episodic Other injuries and conditions due to external causes (1 source) Other specified injuries of lower back, initial encounter; Translations: [OTH SPEC INJURIES LOW BACK INITIAL] Onset: 08-10-2022 Episodic Other injuries and conditions due to external causes (1 source) Other specified injuries of left hip, initial encounter; Translations: [OTHER SPEC INJURIES LT HIP INITIAL] Onset: 08-10-2022 Episodic Other lower respiratory disease (2 sources) Chronic cough; Translations: [Chronic cough] 05-22-2024 Episodic Other lower respiratory disease (2 sources) Rib pain; Translations: [Pleurodynia] 05-22-2024 Episodic Other lower respiratory disease (2 sources) Breathing painful; Translations: [Chest pain on breathing] 05-22-2024 Episodic Other nervous system disorders (8 sources) Brachial plexus disorder; Translations: [Brachial plexus disorders] Chronic Other nervous system disorders (2 sources) Other chronic pain; Translations: [OTHER CHRONIC PAIN] Onset: 11-26-2021 Resolved: 11-26-2021 Chronic Other nervous system disorders (3 sources) Chronic pain syndrome; Translations: [Chronic pain syndrome] Onset: 04-29-2020 Chronic Other nervous system disorders (9 sources) Cervical myelopathy; Translations: [Disease of spinal cord, unspecified] Onset: 09-27-2024 Chronic Other nervous system disorders (3 sources) Thoracic outlet syndrome; Translations: [Brachial plexus disorders] Onset: 10-24-2024 10-26-2019 Chronic Other nervous system disorders (1 source) Chronic pain syndrome; Translations: [Chronic pain syndrome] Onset: 12-23-2022 Chronic Other nervous system disorders (3 sources) Postoperative pain ; Translations: [Other acute postprocedural pain] Episodic Other non-traumatic joint disorders (1 source) Pain in left hip; Translations: [Pain in left hip] Onset: 09-27-2023 Episodic Other nutritional; endocrine; and metabolic disorders (1 source) H/O: Disorder; Translations: [Personal history of other endocrine, nutritional and metabolic disease] Episodic Residual codes; unclassified (10 sources) Chronic pain; Translations: [Other chronic pain] Onset: 04-29-2020 10-27-2020 Chronic Residual codes; unclassified (1 source) Pain; Translations: [Pain, unspecified] Episodic Residual codes; unclassified (8 sources) H/O Spinal surgery; Translations: [Status post spinal surgery] Episodic Residual codes; unclassified (1 source) Other specified postprocedural states; Translations: [Other specified postprocedural states] Onset: 09-27-2023 Episodic Spondylosis; intervertebral disc disorders; other back problems (20 sources) Lumbar spondylosis; Translations: [Spondylosis without myelopathy or radiculopathy, lumbar region] Onset: 12-30-2020 Resolved: 11-26-2021 Chronic Substance-related disorders (20 sources) Smoker; Translations: [Nicotine dependence, unspecified, uncomplicated] Onset: 06-30-2017 10-27-2020 Chronic Comment on above: Added secondary to d ocumentation in Social History. Unclassified (1 source) Preprocedural examination done; Translations: [Pre-op examination] Unclassified (1 source) Long-term current use of drug therapy; Translations: [Other fci (current) drug therapy] Onset: 04-29-2020 10-27-2020 Unclassified (1 source) History of cervical spine fusion; Translations: [S/P cervical spinal fusion] Onset: 10-27-2020 10-27-2020 Unclassified (3 sources) LOW BACK PAIN, UNSPECIFIED; Translations: [LOW BACK PAIN, UNSPECIFIED] Onset: 09-29-2022 Urinary tract infections (2 sources) Urinary tract infectious disease; Translations: [Urinary tract infection, site not specified] 09-26-2023 Episodic Viral infection (6 sources) Postherpetic neuralgia; Translations: [Other postherpetic nervous system involvement] Onset: 09-27-2024 09-27-2024 Episodic Past or Other Problems Problem Classification Problem Date Documented Date Episodic/Chronic Abdominal pain (20 sources) Right flank pain; Translations: [Unspecified abdominal pain] Onset: 10-27-2020 10-27-2020 Episodic Administrative/social admission (1 source) Encounter for examination and observation for other specified reasons; Translations: [Encounter for examination and observation for other specified reasons] Onset: 09-13-2024 Episodic Complications of surgical procedures or medical care (3 sources) Pseudarthrosis following spinal fusion; Translations: [Pseudarthrosis after fusion or arthrodesis] Onset: 09-13-2022 Episodic Deficiency and other anemia (20 sources) Iron deficiency anemia; Translations: [Iron deficiency anemia, unspecified] Onset: 11-11-2020 12-22-2020 Episodic Headache; including migraine (7 sources) Headache; Translations: [Headache] Onset: 04-29-2020 10-27-2020 Episodic Malaise and fatigue (7 sources) Asthenia; Translations: [Weakness] Onset: 09-03-2020 10-27-2020 Episodic Nonspecific chest pain (7 sources) Chest pain; Translations: [Chest pain, unspecified] Onset: 04-29-2020 10-27-2020 Episodic Nutritional deficiencies (20 sources) Cobalamin deficiency; Translations: [Deficiency of other specified B group vitamins] Onset: 11-11-2020 12-22-2020 Episodic Other aftercare (6 sources) Long-term current use of drug therapy; Translations: [Other manager intermediate (current) drug therapy] Onset: 04-29-2020 10-27-2020 Episodic Other connective tissue disease (20 sources) History of cervical spine fusion; Translations: [Arthrodesis status] Onset: 10-27-2020 10-27-2020 Episodic Other connective tissue disease (6 sources) Iliopsoas abscess; 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 muscle abscess] Onset: 09-29-2023 09-26-2023 Episodic Other connective tissue disease (11 sources) History of lumbar fusion; Translations: [Arthrodesis status] Onset: 03-20-2024 03-20-2024 Episodic Other nervous system disorders (7 sources) Paresthesia; Translations: [Paresthesia of skin] Onset: 09-03-2020 10-27-2020 Episodic Spondylosis; intervertebral disc disorders; other back problems (20 sources) Low back pain; Translations: [Low back pain] Onset: 06-30-2017 Resolved: 11-18-2021 10-27-2020 Episodic Unclassified (1 source) LOW BACK PAIN, UNSPECIFIED; Translations: [LOW BACK PAIN, UNSPECIFIED] Onset: 09-27-2022 Unclassified (2 sources) History of lumbar fusion 09-29-2024 Results Test Name Value Interpretation Reference Range Facility XR pre/post mri xrayon 12-29 XR pre/post mri xray [facility] [place] [address] [place] [address] MRI Report Signed Patient: Macie Cloud MR#: [id number] : 1975 Acct:[id number] Age/Sex: 49 / F ADM Date: 12/29/24 Loc: Room: Type: [facility] Attending Dr: Lora Power MD Copies to: Lora Power MD Ordering Provider: Lora Power MD Date of Service: 12/29/24 MR/MR lumbar spine wo/w con: M54.16, M47.816 ([id number]) XR/XR pre/post mri xray: M47.816, M54.16 MRI Lumbar Spine with and withoutcontrast TECHNIQUE: Multiplanar T1 and T2-weighted imaging of lumbar spine obtained without contrast.11 cc of ProHance HISTORY: Multiple back surgeries. Low back pain. Hip and leg pain COMPARISON: 06/23/2023 The last fully segmented vertebral pair is operationally defined as L5/S1. POST SURGERY CHANGES: L2-L4 posterior and interbody fusion changes. L4-5 interbody fusion changes BONE MARROW INFILTRATION: None BONE MARROW EDEMA: None BONY ALIGNMENT: Stable bony alignment SPINAL CANAL: No significant central canal narrowing. LUMBAR FRACTURE: None BONY LESIONS: None KIDNEYS: No hydronephrosis is identified. AORTA: No aortic aneurysm is seen. CONUS MEDULLARIS : The distal spinal cord is in adequate position without abnormality. Additional findings CONJOINED NERVE ROOT: None No pathologic enhancement. Lower thoracic level: Unremarkable L1-2 :No disc herniation central canal stenosis or neural foraminal narrowing L2-3: Posterior and interbody fusion changes. Interval resolution of disc herniation. Patent central canal. Patent neural foramen L3-4: Interbody fusion. No significant stenosis. L4-5: Broad-based disc bulge greater on the right. Endplate spurring. No significant canal stenosis. Mild right neural foraminal narrowing, unchanged L5-S1: Facet hypertrophy. Mild right neural foraminal narrowing. No significant central canal stenosis. MR/MR lumbar spine wo/w con IMPRESSION: Unremarkable postsurgical changes. Patent L2-3 central canal. No residual disc herniation Similar degenerative changes. No pathologic enhancement. Pre-MRI plain film assessment: L2-L4 posterior and interbody fusion. No hardware failure. L4-5 interbody fusion. Scoliosis with concavity to the left. Diffuse osteopenia. Multilevel facet degeneration. High density in the right intrarenal collecting system and pelvis likely contrast. Impression dictated by: Isaac Dominguez M.D. 12/29/2024 12:35 PM Dictation Location: [place] Transcribed By: [facility] 12/29/24 1235 Dictated By: Isaac Dominguez DO 12/29/24 1220 Signed By: 12/29/24 1235 Normal [facility] MR CERVICAL SPINE WO CONTRAS Ton 11-26-2024 MR CERVICAL SPINE WO CONTRAST EXAM: MR CERVICAL SPINE WO CONTRAST History: Neck pain. Cervical radiculopathy. Technique: Multiplanar multisequence MRI of the cervical spine was performed without contrast. Comparison: None available Findings: Craniocervical junction is within normal limits. No cervical cord signal abnormality is identified. No aggressive bone marrow signal abnormality. Cervical spine alignment is within normal limits. Postsurgical changes of anterior cervical spine fusion at C4-C6 with associated susceptibility artifact. Disc desiccation throughout the cervical spine. Mild intervertebral disc height loss at C6-7. C2-C3: No significant disc bulge, spinal canal or neuroforaminal stenosis. C3-C4: No significant disc bulge, spinal canal or neuroforaminal stenosis. C4-C5: No significant disc bulge. Moderate facet arthropathy. No spinal canal stenosis. Moderate bilateral neural foraminal stenosis. C5-C6: No significant disc bulge. Moderate bilateral uncovertebral hypertrophy. Moderate facet arthropathy. Moderate bilateral neural foraminal stenosis. Mild spinal canal stenosis. C6-C7: Anterolisthesis of C6 on C7 of approximately 5 mm. Small disc bulge. Mild uncovertebral hypertrophy. Moderate facet arthropathy. Severe bilateral neural foraminal stenosis. Severe spinal canal stenosis. C7-T1: Small disc bulge. Moderate uncovertebral hypertrophy. Moderate facet arthropathy. Moderate to severe bilateral neural foraminal stenosis. Mild spinal canal stenosis. Visualized paravertebral soft tissues are grossly unremarkable. IMPRESSION: Degenerative changes of the cervical spine as detailed. ELECTRONICALLY SIGNED BY: Lon Moura, Normal Not Available XR CHEST 2 VIEWSon XR CHEST 2 VIEWS EXAM: XR CHEST 2 VIE WS HISTORY: Productive cough and dyspnea TECHNIQUE: Two views COMPARISON: Report from 05/22/2024 FINDINGS: Heart size normal. Pulmonary vessels are not cephalized. No alveolar edema or pneumonia. No pleural effusion or pneumothorax. Minor diaphragmatic flattening. Postprocedural changes in the cervical spine and lumbar spine. No acute skeletal abnormality. IMPRESSION: 1. Minor pulmonic hyperexpansion. 2. Negative for alveolar edema or pneumonia. Electronically Signed:Electronically signed by JOY LOVE MD at 17-Sep-2024 08:12:59 AM [facility] Normal Not Available XR RIBS 2 VIEWS LEFT WITH CH EST ANTEROPOSTERIORon 05-22-2024 XR RIBS 2 VIEWS LEFT WITH CHEST ANTEROPOSTERIOR Exam: XR - RIBS UNILAT W PA CHEST Clinical History: Left lateral mid to lower rib pain, chronic cough Reference Exam: No comparison FINDINGS: Chest x-ray, 1 view: Heart size normal. Pulmonary vessels are not cephalized. No alveolar edema or pneumonia. No pleural effusion or pneumothorax. Postprocedural changes in the cervical spine and lumbar spine. Gentle dextrorotoscoliosis of the upper lumbar spine. Rib cage analysis: 6 views: Negative for displaced rib fracture. No pneumothorax. No pleural effusion. No rib lesion. IMPRESSION: 1. Negative for specific acute cardiopulmonary pathology. 2. No displaced rib fracture or rib lesion identified. If patients clinical symptomatology warrants, further imaging investigation with CT scanning is available. Dictated on: 05/22/2024 10:12 AM This report has been electronically signed and approved by the interpreting Radiologist. Electronically Signed Joy Love M.D. 2024-05-22 10:14:26 Normal Not Available XR Ribs Views and Chest PAon 05-22-2024 Exam: XR - RIBS UNILAT W PA CHEST Clinical History: Left lateral mid to lower rib pain, chronic cough Reference Exam: No comparison FINDINGS: Chest x-ray, 1 view: Heart size normal. Pulmonary vessels are not cephalized. No alveolar edema or pneumonia. No pleural effusion or pneumothorax. Postprocedural changes in the cervical spine and lumbar spine. Gentle dextrorotoscoliosis of the upper lumbar spine. Rib cage analysis: 6 views: Negative for displaced rib fracture. No pneumothorax. No pleural effusion. No rib lesion. IMPRESSION: 1. Negative for specific acute cardiopulmonary pathology. 2. No displaced rib fracture or rib lesion identified. If patients clinical symptomatology warrants, further imaging investigation with CT scanning is available. Dictated on: 05/22/2024 10:12 AM This report has been electronically signed and approved by the interpreting Radiologist. Electronically Signed Joy Love M.D. 2024-05-22 10:14:26 IMAGING Joy Love MD - 05/22/2024 Exam: XR - RIBS UNILAT W PA CHEST Clinical History: Left lateral mid to lower rib pain, chronic cough Reference Exam: No comparison FINDINGS: Chest x-ray, 1 view: Heart size normal. Pulmonary vessels are not cephalized. No alveolar edema or pneumonia. No pleural effusion or pneumothorax. Postprocedural changes in the cervical spine and lumbar spine. Gentle dextrorotoscoliosis of the upper lumbar spine. Rib cage analysis: 6 views: Negative for displaced rib fracture. No pneumothorax. No pleural effusion. No rib lesion. IMPRESSION: 1. Negative for specific acute cardiopulmonary pathology. 2. No displaced rib fracture or rib lesion identified. If patients clinical symptomatology warrants, further imaging investigation with CT scanning is available. Dictated on: 05/22/2024 10:12 AM This report has been electronically signed and approved by the interpreting Radiologist. Electronically Signed Joy Love M.D. 2024-05-22 10:14:26 [facility] Radiology Study observation (narrative) [facility] XR Ribs Views and Chest PAOr dered By: Joy Love on 05-22-2024 [facility] Work Phone: MR Lumbar spine WO contrasto n 05-09-2024 1. Status post multilevel laminectomies and posterior lumbar fusion from L2-L4. The left L3 transpedicular screw likely extends into the L2-[address] for further evaluation. 2. Resolution of spinal canal stenosis at L2-3. 3. [id number] right neural foraminal narrowing at L5-S1, unchanged. [facility] EXAMINATION: MRI OF THE LUMBAR SPINE WITHOUT CONTRAST, 05/07/2024 5:48 pm TECHNIQUE: Multiplanar multisequence MRI of the lumbar spine was performed without the administration of intravenous COMPARISON: 09/27/2023 HISTORY: ORDERING SYSTEM PROVIDED HISTORY: Lumbar radiculopathy TECHNOLOGIST PROVIDED HISTORY: Reason for Exam: Patient states that she is still having pain 2 back surgeries this year, numbness around the waist and in the right leg with some pain, no injury. Additional signs and symptoms: Lumbar radiculopathy FINDINGS: BONES/ALIGNMENT: A dextroconvex lumbar scoliosis is present. Status post multilevel laminectomies and posterior lumbar fusion from L2-L4. Orthopedic hardware has been removed from the L4-5 level. The sequelae interbody fusion at L3-4 and L4-5 is present. The left L3 transpedicular screw likely extends into the L2-3 disc space. Bone marrow signal intensity is normal. SPINAL CORD: The conus medullaris is normal in size and signal intensities and terminates normally. SOFT TISSUES: No paraspinal mass identified. L1-L2: There is no disc bulge or protrusion present. There is no significant spinal canal stenosis or neural foraminal narrowing present. There is bilateral facet arthropathy. L2-L3: Status post bilateral laminectomies. There has been interval resolution of spinal canal stenosis and neural foraminal narrowing. L3-L4: Status post bilateral laminectomies. There is no disc bulge or protrusion present. There is no significant spinal canal stenosis or neural foraminal narrowing present. L4-L5: Status post bilateral laminectomies. There is posterior osteophyte formation but no significant spinal canal stenosis or neural foraminal narrowing. L5-S1: Facet arthropathy results in [id number] right neural foraminal narrowing, unchanged. No significant left neural foraminal narrowing. [facility] Alexis Sanchez MD - 05/09/2024 EXAMINATION: MRI OF THE LUMBAR SPINE WITHOUT CONTRAST, 05/07/2024 5:48 pm TECHNIQUE: Multiplanar multisequence MRI of the lumbar spine was performed without the administration of intravenous COMPARISON: 09/27/2023 HISTORY: ORDERING SYSTEM PROVIDED HISTORY: Lumbar radiculopathy TECHNOLOGIST PROVIDED HISTORY: Reason for Exam: Patient states that she is still having pain 2 back surgeries this year, numbness around the waist and in the right leg with some pain, no injury. Additional signs and symptoms: Lumbar radiculopathy FINDINGS: BONES/ALIGNMENT: A dextroconvex lumbar scoliosis is present. Status post multilevel laminectomies and posterior lumbar fusion from L2-L4. Orthopedic hardware has been removed from the L4-5 level. The sequelae interbody fusion at L3-4 and L4-5 is present. The left L3 transpedicular screw likely extends into the L2-3 disc space. Bone marrow signal intensity is normal. SPINAL CORD: The conus medullaris is normal in size and signal intensities and terminates normally. SOFT TISSUES: No paraspinal mass identified. L1-L2: There is no disc bulge or protrusion present. There is no significant spinal canal stenosis or neural foraminal narrowing present. There is bilateral facet arthropathy. L2-L3: Status post bilateral laminectomies. There has been interval resolution of spinal canal stenosis and neural foraminal narrowing. L3-L4: Status post bilateral laminectomies. There is no disc bulge or protrusion present. There is no significant spinal canal stenosis or neural foraminal narrowing present. L4-L5: Status post bilateral laminectomies. There is posterior osteophyte formation but no significant spinal canal stenosis or neural foraminal narrowing. L5-S1: Facet arthropathy results in pdmk-tj-hmputgev right neural foraminal narrowing, unchanged. No significant left neural foraminal narrowing. IMPRESSION: 1. Status post multilevel laminectomies and posterior lumbar fusion from L2-L4. The left L3 transpedicular screw likely extends into the L2-[address] for further evaluation. 2. Resolution of spinal canal stenosis at L2-3. 3. Cjbb-zx-yodkopeq right neural foraminal narrowing at L5-S1, unchanged. [facility] [employer] [facility] MR Lumbar spine WO contrastO rdered By: Alexis Sanchez on 05-09-2024 [facility] [employer] Work Phone: MRI LUMBAR SPINE WO CONTRAST on 05-09-2024 MRI LUMBAR SPINE WO CONTRAST EXAMINATION: MRI OF THE LUMBAR SPINE WITHOUT CONTRAST, 05/07/2024 5:48 pm TECHNIQUE: Multiplanar multisequence MRI of the lumbar spine was performed without the administration of intravenous COMPARISON: 09/27/2023 HISTORY: ORDERING SYSTEM PROVIDED HISTORY: Lumbar radiculopathy TECHNOLOGIST PROVIDED HISTORY: Reason for Exam: Patient states that she is still having pain 2 back surgeries this year, numbness around the waist and in the right leg with some pain, no injury. Additional signs and symptoms: Lumbar radiculopathy FINDINGS: BONES/ALIGNMENT: A dextroconvex lumbar scoliosis is present. Status post multilevel laminectomies and posterior lumbar fusion from L2-L4. Orthopedic hardware has been removed from the L4-5 level. The sequelae interbody fusion at L3-4 and L4-5 is present. The left L3 transpedicular screw likely extends into the L2-3 disc space. Bone marrow signal intensity is normal. SPINAL CORD: The conus medullaris is normal in size and signal intensities and terminates normally. SOFT TISSUES: No paraspinal mass identified. L1-L2: There is no disc bulge or protrusion present. There is no significant spinal canal stenosis or neural foraminal narrowing present. There is bilateral facet arthropathy. L2-L3: Status post bilateral laminectomies. There has been interval resolution of spinal canal stenosis and neural foraminal narrowing. L3-L4: Status post bilateral laminectomies. There is no disc bulge or protrusion present. There is no significant spinal canal stenosis or neural foraminal narrowing present. L4-L5: Status post bilateral laminectomies. There is posterior osteophyte formation but no significant spinal canal stenosis or neural foraminal narrowing. L5-S1: Facet arthropathy results in ouue-cg-frkpgfwo right neural foraminal narrowing, unchanged. No significant left neural foraminal narrowing. IMPRESSION: 1. Status post multilevel laminectomies and posterior lumbar fusion from L2-L4. The left L3 transpedicular screw likely extends into the L2-[address] for further evaluation. 2. Resolution of spinal canal stenosis at L2-3. 3. Zpbl-je-kjxpbuon right neural foraminal narrowing at L5-S1, unchanged. Interpreted by: Alexis Sanchez MD Signed by: Alexis Sanchez MD 9/25/24 Final result Normal [facility] MR Lumbar spine WO contrasto n 05-07-2024 Radiology Study observation (narrative) [facility] XR LUMBAR SPINE 4+ VIEWS WIT H FLEXION EXTENSIONon 03-26-2024 XR LUMBAR SPINE 4+ VIEWS WITH FLEXION EXTENSION XR - LUMBAR SPINE W FLEX EXTENSION Reason for exam: Lower back pain Views: 9 Findings: There is lumbar scoliosis convex to the right centered at L3. There is moderate lumbar kyphosis. The patient is undergone anterior interbody fusions at L3-4 and L4-5 with posterior pedicle screw and stabilizing jennifer fusions at L2-3 and L3-4. There are posterior bone grafts throughout between L2 and S1. There is no evidence of hardware displacement or fracture. There is demineralization of the regional skeleton. The alignment is normal. Vertebral body height is normal at each level. No fracture or bone destruction is evident. Impression: Extensive postop changes. No acute findings. Dictated on: 03/26/2024 5:01 PM This report has been electronically signed and approved by the interpreting Radiologist. Electronically Signed Luis Bhandari M.D. 2024-03-26 17:03:21 Normal Not Available BUN + Creatinineon 4 Creatinine [Mass/Vol] 0.4 mg/dL Low 0.5-0.9 [facility] Comment on above: Performed By: #### B UNCRT ####[facility] [address] [place] [address] lab Director: Zion Sweet MD GFR/1.73 sq M.predicted among non-blacks MDRD (S/P/Bld) [Vol rate/Area] mL/min/{1.73_m2} Normal >60 [facility] Comment on above: Result Comment: These [...] renal tubular secretion. Performed By: #### B UNCRT ####[facility] [address] [facility] [address] Lab Director: Zion Sweet MD Urea nitrogen [Mass/Vol] 5 mg/dL Low 6-20 [facility] Comment on above: Performed By: #### B UNCRT ####[facility] [address] [facility] [address] Lab Director: Zion Sweet MD Basic Metab w/rfx MGon 09-28 Anion gap [Moles/Vol] 8 mmol/L Low 9-17 [facility] Comment on above: Performed By: #### B MPX, CDP ####[facility] [address] [place] [address].[place], [place] [phone] Director: Zion Sweet MD BUN/CRE Ratio 14 Normal 9-20 [facility] Comment on above: Performed By: #### B MPX, CDP ####[facility] [address] [facility].[place], [place] [phone] Director: Zion Sweet MD Calcium [Mass/Vol] 8.8 mg/dL Normal 8.6-10.4 [facility] Comment on above: Performed By: #### B MPX, CDP ####[facility] [address] [place] [address].[place], [place] [phone] Director: Zion Sweet MD Chloride [Moles/Vol] 99 mmol/L Normal 98-107 [facility] Comment on above: Performed By: #### B MPX, CDP ####[facility] [address] [place] [address].[place] [address] Lab Director: Zion Sweet MD CO2 [Moles/Vol] 29 mmol/L Normal 20-31 [facility] Comment on above: Performed By: #### B MPX, CDP ####[facility] [address] [place] [address] [place] [address] Lab Director: Zion Sweet MD Creatinine [Mass/Vol] 0.5 mg/dL Normal 0.5-0.9 [facility] Comment on above: Performed By: #### B MPX, CDP ####[facility] [address] [place] [address].[place] [address] Lab Director: Zion Sweet MD GFR/1.73 sq M.predicted among non-blacks MDRD (S/P/Bld) [Vol rate/Area] mL/min/{1.73_m2} Normal >60 [facility] Comment on above: Result Comment: These [...] renal tubular secretion. Performed By: #### B MPX, CDP ####[facility] [address] [place] [address].[place] [address] Lab Director: Zion Sweet MD Glucose [Mass/Vol] 100 mg/dL High 70-99 [facility] Comment on above: Performed By: #### B MPX, CDP ####[facility] [address] [place] [address].[place] [address] Lab Director: Zion Sweet MD Potassium [Moles/Vol] 4.0 mmol/L Normal 3.7-5.3 [facility] Comment on above: Performed By: #### B MPX, CDP ####[facility] [address] [place] [address].[place] [address] Lab Director: Zion Sweet MD Sodium [Moles/Vol] 136 mmol/L Normal 135-144 [facility] Comment on above: Performed By: #### B MPX, CDP ####[facility] [address] [facility] [address] Lab Director: Zion Sweet MD Urea nitrogen [Mass/Vol] 7 mg/dL Normal 6-20 [facility] Comment on above: Performed By: #### B MPX, CDP ####[facility] [address] [place] [phone] Director: Zion Sweet MD CBC with Diffon 09-28-2023 Abs. Basophil <0.03 Normal 0.00-0.20 [facility] Comment on above: Performed By: #### B MPX, CDP ####[facility] [address] [place] [address]([facility])[phone] Director: Zion Sweet MD Abs.Imm.Granulocyte 0.01 k/uL Normal 0.00-0.30 [facility] Comment on above: Performed By: #### B MPX, CDP ####[facility] [address] [place] [address] Lab Director: Zion Sweet MD Abs.Neutrophil (Seg) 7.51 k/uL Normal 1.50-8.10 [facility] Comment on above: Performed By: #### B MPX, CDP ####[facility] [address] [place] [address] Lab Director: Zion Sweet MD Basophils/100 WBC (Bld) 0 % Normal 0-2 [facility] Comment on above: Performed By: #### B MPX, CDP ####[facility] [address] [place] [phone] Director: Zion Sweet MD Eosinophils (Bld) [#/Vol] 0.15 10*3/uL Normal 0.00-0.44 [facility] Comment on above: Performed By: #### B MPX, CDP ####[facility] [address] [facility] [address] Lab Director: Zion Sweet MD Eosinophils/100 WBC (Bld) 2 % Normal 1-4 [facility] Comment on above: Performed By: #### B MPX, CDP ####[facility] [address] [place] [address].[place] [address] Lab Director: Zion Sweet MD Erythrocyte distribution width (RBC) [Ratio] 14.7 % High 11.8-14.4 [facility] Comment on above: Performed By: #### B MPX, CDP ####[facility] [address] [place] [address].[place] [address] Lab Director: Zion Sweet MD Hematocrit (Bld) [Volume fraction] 41.8 % Normal 36.3-47.1 [facility] Comment on above: Performed By: #### B MPX, CDP ####[facility] [address] [place] [address] Lab Director: Zion Sweet MD Hemoglobin (Bld) [Mass/Vol] 12.9 g/dL Normal 11.9-15.1 [facility] Comment on above: Performed By: #### B MPX, CDP ####[facility] [address] [place] [address].[place] [address] Lab Director: Zion Sweet MD Immature granulocytes/100 WBC (Bld) 0 % Normal 0 [facility] Comment on above: Performed By: #### B MPX, CDP ####[facility] [address] [place] [address].[place] [phone] Director: Zion Sweet MD Lymphocytes (Bld) [#/Vol] 1.89 10*3/uL Normal 1.10-3.70 [facility] Comment on above: Performed By: #### B MPX, CDP ####[facility] [address] [place] [address].[place] [address] Lab Director: Zion Sweet MD Lymphocytes/100 WBC (Bld) 19 % Low 24-43 [facility] Comment on above: Performed By: #### B MPX, CDP ####[facility] [address] [place] [address].[place] [address] Lab Director: Zion Sweet MD MCH (RBC) [Entitic mass] 30.5 pg Normal 25.2-33.5 [facility] Comment on above: Performed By: #### B MPX, CDP ####[facility] [address] [place] [address].[place] [address] Lab Director: Zion Sweet MD MCHC (RBC) [Mass/Vol] 30.9 g/dL Normal 28.4-34.8 [facility] Comment on above: Performed By: #### B MPX, CDP ####[facility] [address] [place] [address].[place] [address] Lab Director: Zion Sweet MD MCV (RBC) [Entitic vol] 98.8 fL Normal 82.6-102.9 [facility] Comment on above: Performed By: #### B MPX, CDP ####[facility] [address] [place] [address].[place] [address] Lab Director: Zion Sweet MD Monocytes (Bld) [#/Vol] 0.60 10*3/uL Normal 0.10-1.20 [facility] Comment on above: Performed By: #### B MPX, CDP ####[facility] [address] [place] [address].[place] [address] Lab Director: Zion Sweet MD Monocytes/100 WBC (Bld) 6 % Normal 3-12 [facility] Comment on above: Performed By: #### B MPX, CDP ####[facility] [address] [place] [address] Lab Director: Zion Sweet MD Neutrophil (Seg) 74 % High 36-65 [facility] Comment on above: Performed By: #### B MPX, CDP ####[facility] [address] [place] [address].[place] [address] Lab Director: Zion Sweet MD Platelet mean volume (Bld) [Entitic vol] 8.5 fL Normal 8.1-13.5 [facility] Comment on above: Performed By: #### B MPX, CDP ####[facility] [address] [place] [address] Lab Director: Zion Sweet MD Platelets (Bld) [#/Vol] 371 10*3/uL Normal 138-453 [facility] Comment on above: Performed By: #### B MPX, CDP ####[facility] [address] [place] [address].[place] [address] Lab Director: Zion Sweet MD RBC (Bld) [#/Vol] 4.23 10*6/uL Normal 3.95-5.11 [facility] Comment on above: Performed By: #### B MPX, CDP ####[facility] [address] [place] [address].[place] [address] Lab Director: Zion Sweet MD RBC morphology finding Nom (Bld) ANISOCYTOSIS PRESENT Normal [facility] Comment on above: Performed By: #### B MPX, CDP ####[facility] [address] [place] [address] Lab Director: Zion Sweet MD WBC (Bld) [#/Vol] 10.2 10*3/uL Normal 3.5-11.3 [facility] Comment on above: Performed By: #### B MPX, CDP ####[facility] [address] [place] [address] Lab Director: Zion Sweet MD Lactic Acidon 09-28-2023 Lactate [Moles/Vol] 0.7 mmol/L Normal 0.5-2.2 [facility] Comment on above: Performed By: #### L ACTIC #### [facility] Lab [address] [place] [address] Shop Hand: Zion Sweet MD MRI LUMBAR SPINE W WO CONTRA STon 09-28-2023 MRI LUMBAR SPINE W WO CONTRAST EXAMINATION: MRI OF THE LUMBAR SPINE WITHOUT AND WITH CONTRAST 09/27/2023 2:47 pm TECHNIQUE: Multiplanar multisequence MRI of the lumbar spine was performed without and with the administration of intravenous contrast. COMPARISON: None HISTORY: ORDERING SYSTEM PROVIDED HISTORY: eval for osteomyelitis and psoas abscess TECHNOLOGIST PROVIDED HISTORY: eval for osteomyelitis and psoas abscess Decision Support Exception - unselect if not a suspected or confirmed emergency medical condition->Emergency Medical Condition (MA) Reason for Exam: eval for osteomyelitis and psoas abscess, 12 ml prohance Initial evaluation. FINDINGS: BONES/ALIGNMENT: There has been pedicle screw and jennifer fusion from L3 through L5. Hardware artifact obscures and distorts anatomic detail at these levels. There is degenerative disc disease with disc space narrowing at L2-3. There is high signal in the disc space which is likely related to the vacuum disc phenomena seen on the prior CT. SPINAL CORD: The conus terminates normally. SOFT TISSUES: No abnormal enhancement is seen of the lumbar spine. No paraspinal mass identified. L1-L2: The thecal sac and neural foramina are intact. L2-L3: There is a large disc extrusion extending from the disc space at L2-3 inferiorly and toward the left behind the superior aspect of L3 measuring approximately 9 mm. This flattens and displaces the thecal sac toward the right side of the canal. The thecal sac is severely stenotic measuring approximately 5 mm. There is enhancement along the periphery of the disc extrusion. Disc and/or osteophytes result in severe narrowing of the neural foramina bilaterally. The left neural foramen is narrowed greater than right. L3-L4: There is disc and osteophyte causing minimal narrowing of the right neural foramen. The thecal sac and left neural foramen are intact. L4-L5: There is a disc bulge measuring 2-3 mm. Disc and osteophyte causes moderate narrowing of the right neural foramen. The left neural foramen is intact. L5-S1: There is moderate facet and ligamentum flavum hypertrophy. The thecal sac and S1 nerve roots are intact. There is minimal narrowing of the right neural foramen. Disc and/or osteophytes cause minimal narrowing of the neural foramina bilaterally. IMPRESSION: Pedicle screw and jennifer fusion from L3 through L5. Hardware artifact obscures and distorts anatomic detail at these levels. There is a large disc extrusion from the L2-3 disc space toward the left extending behind the superior endplate of L3 causing severe stenosis of the thecal sac and severe narrowing of the neural foramina as discussed above. Interpreted by: Divya Varner MD Signed by: Divya Varner MD 09/28/23 Final result Normal [facility] Vancomycin,Randomon 09-28-19 24 Vancomycin 18.5 ug/mL Normal [facility] Comment on above: Result Comment: High er trough serum vancomycin concentrations of 15-20 ug/mL are recommended for complicated infections such as bacteremia, endocarditis, osteomyelitis, meningitis, and hospital acquired pneumonia. Performed By: #### V NCR ####[facility] [address] [place] [address] lab Director: Zion Sweet MD C-Reactive Proteinon 024 CRP [Mass/Vol] 7.1 mg/L High 0.0-5.0 [facility] Comment on above: Performed By: #### C P, CRP, SED, CDP #### [facility] Lab [address] [place] [address] Shop [employer]: Zion Sweet MD CBC with Diffon 09-27-2023 Abs. Basophil <0.03 Normal 0.00-0.20 [facility] Comment on above: Performed By: #### C P, CRP, SED, CDP #### [facility] Lab [address] [place] [address]. [place] [address] Shop Hand: Zion Sweet MD Abs.Imm.Granulocyte 0.01 k/uL Normal 0.00-0.30 [facility] Comment on above: Performed By: #### C P, CRP, SED, CDP #### [facility] Lab [address] [place] [address]. [place] [address] Shop Hand: Zion Sweet MD Abs.Neutrophil (Seg) 8.68 k/uL High 1.50-8.10 [facility] Comment on above: Performed By: #### C P, CRP, SED, CDP #### [facility] Lab [address] [place] [address] Shop Hand: Zion Sweet MD Basophils/100 WBC (Bld) 0 % Normal 0-2 [facility] Comment on above: Performed By: #### C P, CRP, SED, CDP #### [facility] Lab [address] [place] [address]. [place] [address] Shop Hand: Zion Sweet MD Eosinophils (Bld) [#/Vol] 0.12 10*3/uL Normal 0.00-0.44 [facility] Comment on above: Performed By: #### C P, CRP, SED, CDP #### [facility] Lab [address] [place] [address]. [place] [address] Shop [employer]: Zion Sweet MD Eosinophils/100 WBC (Bld) 1 % Normal 1-4 [facility] Comment on above: Performed By: #### C P, CRP, SED, CDP #### [facility] Lab [address] [facility] [place] [address] Shop [employer]: Zion Sweet MD Erythrocyte distribution width (RBC) [Ratio] 14.7 % High 11.8-14.4 [facility] Comment on above: Performed By: #### C P, CRP, SED, CDP #### [facility] Lab [facility] [facility] [place] [address] [employer]: Zion Sweet MD Hematocrit (Bld) [Volume fraction] 43.4 % Normal 36.3-47.1 [facility] Comment on above: Performed By: #### C P, CRP, SED, CDP #### [facility] Lab [address] [place] [address]. [place] [address] Shop Hand: Zion Sweet MD Hemoglobin (Bld) [Mass/Vol] 13.7 g/dL Normal 11.9-15.1 [facility] Comment on above: Performed By: #### C P, CRP, SED, CDP #### [facility] Lab [address] [place] [address]. [place] [address] Shop [employer]: Zion Sweet MD Immature granulocytes/100 WBC (Bld) 0 % Normal 0 [facility] Comment on above: Performed By: #### C P, CRP, SED, CDP #### [facility] Lab [facility] [address] Shop Hand: Zion Sweet MD Lymphocytes (Bld) [#/Vol] 2.65 10*3/uL Normal 1.10-3.70 [facility] Comment on above: Performed By: #### C P, CRP, SED, CDP #### [facility] Lab [address] [place], [place] [address]ia [facility] [place] [address] Shop Hand: Zion Sweet MD Lymphocytes/100 WBC (Bld) 22 % Low 24-43 [facility] Comment on above: Performed By: #### C P, CRP, SED, CDP #### [facility] Lab [facility] [place] [address] Shop Hand: Zion Sweet MD MCH (RBC) [Entitic mass] 30.4 pg Normal 25.2-33.5 [facility] Comment on above: Performed By: #### C P, CRP, SED, CDP #### [facility] Lab [address] [place] [address] [employer]: Zion Sweet MD MCHC (RBC) [Mass/Vol] 31.6 g/dL Normal 28.4-34.8 [facility] Comment on above: Performed By: #### C P, CRP, SED, CDP #### [facility] Lab [address] [place] [address] [employer]: Zion Sweet MD MCV (RBC) [Entitic vol] 96.2 fL Normal 82.6-102.9 [facility] Comment on above: Performed By: #### C P, CRP, SED, CDP #### [facility] Lab [address] [place] [address] [employer]: Zion Sweet MD Monocytes (Bld) [#/Vol] 0.62 10*3/uL Normal 0.10-1.20 [facility] Comment on above: Performed By: #### C P, CRP, SED, CDP #### [facility] Lab [address] [place] [address] Shop [employer]: Zion Sweet MD Monocytes/100 WBC (Bld) 5 % Normal 3-12 [facility] Comment on above: Performed By: #### C P, CRP, SED, CDP #### [facility] Lab [address] [place] [address] Shop Hand: Zion Sweet MD Neutrophil (Seg) 72 % High 36-65 [facility] Comment on above: Performed By: #### C P, CRP, SED, CDP #### [facility] Lab [address] [facility] [place] [address] Shop Hand: Zion Sweet MD Platelet mean volume (Bld) [Entitic vol] 8.5 fL Normal 8.1-13.5 [facility] Comment on above: Performed By: #### C P, CRP, SED, CDP #### [facility] Lab [facility] [address] Shop Hand: Zion Sweet MD Platelets (Bld) [#/Vol] 428 10*3/uL Normal 138-453 [facility] Comment on above: Performed By: #### C P, CRP, SED, CDP #### [facility] Lab [facility] [address] Shop Hand: Zion Sweet MD RBC (Bld) [#/Vol] 4.51 10*6/uL Normal 3.95-5.11 [facility] Comment on above: Performed By: #### C P, CRP, SED, CDP #### [facility] [place] [address] Shop Hand: Zion Sweet MD RBC morphology finding Nom (Bld) ANISOCYTOSIS PRESENT Normal [facility] Comment on above: Performed By: #### C P, CRP, SED, CDP #### [facility] [address] [facility] [place] [address] Shop Hand: Zion Sweet MD WBC (Bld) [#/Vol] 12.1 10*3/uL High 3.5-11.3 [facility] Comment on above: Performed By: #### C P, CRP, SED, CDP #### [facility] [address] [place] [address] Shop Hand: Zion Sweet MD Comp Metabolic Profon 2023 Albumin [Mass/Vol] 4.0 g/dL Normal 3.5-5.2 [facility] Comment on above: Performed By: #### C P, CRP, SED, CDP #### [facility] [address] [place] [address] Shop Hand: Zion Sweet MD Alkaline Phos 119 U/L High 35-104 [facility] Comment on above: Performed By: #### C P, CRP, SED, CDP #### [facility] [address] [place] [address] Shop Hand: Zion Sweet MD ALT [Catalytic activity/Vol] 9 U/L Normal 5-33 [facility] Comment on above: Performed By: #### C P, CRP, SED, CDP #### [facility] [address] [place] [address] Shop Hand: Zion Sweet MD Anion gap [Moles/Vol] 10 mmol/L Normal 9-17 [facility] Comment on above: Performed By: #### C P, CRP, SED, CDP #### [facility] [address] [place] [address] Shop Hand: Zion Sweet MD AST [Catalytic activity/Vol] 12 U/L Normal <32 [facility] Comment on above: Performed By: #### C P, CRP, SED, CDP #### [facility] [address] [place] [address] Shop Hand: Zion Sweet MD Bilirubin [Mass/Vol] 0.2 mg/dL Low 0.3-1.2 [facility] Comment on above: Performed By: #### C P, CRP, SED, CDP #### [facility] [address] [place] [address] Shop Hand: Zion Sweet MD BUN/CRE Ratio Can not be calculated Normal 9-20 [facility] Comment on above: Performed By: #### C P, CRP, SED, CDP #### [facility] [address] [place] [address] Shop Hand: Zion Sweet MD Calcium [Mass/Vol] 9.3 mg/dL Normal 8.6-10.4 [facility] Comment on above: Performed By: #### C P, CRP, SED, CDP #### [facility] [address] [place] [address] Shop Hand: Zion Sweet MD Chloride [Moles/Vol] 94 mmol/L Low 98-107 [facility] Comment on above: Performed By: #### C P, CRP, SED, CDP #### [facility] [place] [address] Shop Hand: Zion Sweet MD CO2 [Moles/Vol] 29 mmol/L Normal 20-31 [facility] Comment on above: Performed By: #### C P, CRP, SED, CDP #### [facility] [address] [facility] [place] [address] Shop Hand: Zion Sweet MD Creatinine [Mass/Vol] mg/dL Low 0.5-0.9 [facility] Comment on above: Performed By: #### C P, CRP, SED, CDP #### [facility] [address] [place] [address] Shop Hand: Zion Sweet MD eGFR Can not be calculated Normal >60 [facility] Comment on above: Result Comment: These [...] affects renal tubular secretion. Performed By: #### C P, CRP, SED, CDP #### [facility] [address] [facility] [place] [address] Shop Hand: Zion Sweet MD Glucose [Mass/Vol] 111 mg/dL High 70-99 [facility] Comment on above: Performed By: #### C P, CRP, SED, CDP #### [facility] [address] [place] [address]. [place] [address] Shop Hand: Zion Sweet MD Potassium [Moles/Vol] 3.5 mmol/L Low 3.7-5.3 [facility] Comment on above: Performed By: #### C P, CRP, SED, CDP #### [facility] [address] [place] [address]. [place] [address] Shop Hand: Zion Sweet MD Protein [Mass/Vol] 6.9 g/dL Normal 6.4-8.3 [facility] Comment on above: Performed By: #### C P, CRP, SED, CDP #### [facility] [address] [place] [address]. [place] [address] Shop Hand: Zion Sweet MD Sodium [Moles/Vol] 133 mmol/L Low 135-144 [facility] Comment on above: Performed By: #### C P, CRP, SED, CDP #### [facility] [address] [place], [place] [address]e. [place] [address] Shop Hand: Zion Sweet MD Urea nitrogen [Mass/Vol] 7 mg/dL Normal 6-20 [facility] Comment on above: Performed By: #### C P, CRP, SED, CDP #### [facility] [address] [facility] [place] [address] Shop Hand: Zion Sweet MD Lactic Acidon 09-27-2023 Lactate [Moles/Vol] 0.9 mmol/L Normal 0.5-2.2 [facility] Comment on above: Performed By: #### L ACTIC ####[facility] [address] [facility] [address] Lab Director: Zion Sweet MD MRI HIP LEFT WO CONTRASTon 0 09-27-2023 MRI HIP LEFT WO CONTRAST EXAMINATION: MRI OF THE LEFT HIP WITHOUT CONTRAST, 09/27/2023 3:01 pm TECHNIQUE: Multiplanar multisequence MRI of the hip was performed without the administration of intravenous contrast. COMPARISON: None. HISTORY: ORDERING SYSTEM PROVIDED HISTORY: left hip pain TECHNOLOGIST PROVIDED HISTORY: left hip pain Decision Support Exception - unselect if not a suspected or confirmed emergency medical condition->Emergency Medical Condition (MA) Reason for Exam: lt hip pain FINDINGS: BONE MARROW: No evidence of fracture. Normal marrow signal. HIP JOINT: Osteophytes of the acetabulum the femoral heads. Small joint effusions. The cartilage is diffusely irregular. LABRUM: No appreciable labral tear or paralabral cyst. BURSAE: No significant iliopsoas or trochanteric bursitis. SCIATIC NERVE: Normal MRI appearance of the sciatic nerve. MUSCLES / TENDONS: Increase in intensity at the gluteus medius and minimus insertions. No detachment. INTRAPELVIC CONTENTS / SOFT TISSUES: Limited images of the intrapelvic contents demonstrate no acute abnormality. IMPRESSION: 1. Osteoarthritis and a small hip effusion. 2. Tendinopathy of the gluteus medius and minimus. Interpreted by: Karen Montanez MD Signed by: Karen Montanez MD 09/27/23 Final result Normal [facility] Sedimentation Rateon 024 Sedimentation Rate 15 mm/Hr Normal 0-30 [facility] Comment on above: Performed By: #### C P, CRP, SED, CDP #### [facility] [address] [place] [address] Shop Hand: Zion Sweet MD Automated epithelial cells c ount in urine sediment (number/area)Ordered By: Nabil Maya on 09-26-2023 Epithelial cells Auto (Urine sed) [#/Area] 5-9 [HPF] 0-2 [facility] Automated erythrocytes count in urine sediment (number/area)Ordered By: Nabil Maya on 09-26-2023 RBC Auto (Urine sed) [#/Area] 0-1 [HPF] 0-4 [facility] Automated leukocytes count i n urine sediment (number/area)Ordered By: Nabil Maya on 09-26-2023 WBC Auto (Urine sed) [#/Area] 10-19 [HPF] 0-4 [facility] Automated urine hyaline cast s count (number/volume)Ordered By: Nabil Maya on 09-26-2023 Hyaline casts Auto (U) [#/Vol] None seen [LPF] 0-1 [facility] Basophils Auto (Bld) [#/Vol] Ordered By: Nabil Maya on 09-26-2023 Basophils (Bld) [#/Vol] 0.1 10*3/uL 0.0-0.2 [facility] Basophils/100 WBC Auto (Bld) Ordered By: Nabil Maya on 09-26-2023 Basophils/100 WBC (Bld) 0.6 % . [facility] Bilirubin Test strip Ql (U)O rdered By: Nabil Maya on 09-26-2023 Bilirubin Ql (U) Negative Negative [facility] Calcium [Mass/volume] in Ser um or PlasmaOrdered By: Nabil Maya on 09-26-2023 Calcium [Mass/Vol] 8.9 mg/dL 8.6-10.3 [facility] Carbon dioxide, total [Moles /volume] in Serum or PlasmaOrdered By: Nabil Maya on 09-26-2023 CO2 [Moles/Vol] 25.2 mmol/L 21.0-31.0 [facility] Chloride [Moles/volume] in S jayshree or PlasmaOrdered By: Nabil Maya on 09-26-2023 Chloride [Moles/Vol] 102 mmol/L 98-107 [facility] Color Auto (U)Ordered By: Lonnie Maya on 09-26-2023 Color (U) Yellow Yellow [facility] Creatinine [Mass/volume] in Serum or PlasmaOrdered By: Nabil Maya on 09-26-2023 Creatinine [Mass/Vol] 0.55 mg/dL 0.60-1.20 [facility] Eosinophils Auto (Bld) [#/Vo l]Ordered By: Nabil Maya on 09-26-2023 Eosinophils (Bld) [#/Vol] 0.1 10*3/uL 0.0-0.45 [facility] Eosinophils/100 WBC Auto (Bl d)Ordered By: Nabil Maya on 09-26-2023 Eosinophils/100 WBC (Bld) 1.0 % . [facility] Erythrocyte distribution wid th Auto (RBC) [Ratio]Ordered By: Nabil Maya on 09-26-2023 Erythrocyte distribution width (RBC) [Ratio] 15.3 % 11.9-15.3 [facility] Glucose [Mass/volume] in Ser um or PlasmaOrdered By: Nabil Maya on 09-26-2023 Glucose [Mass/Vol] 112 mg/dL 70-100 [facility] Comment on above: ADA recommended refe rence rangeRandom Glucose Reference Range is dependent on time and content of last meal. Glucose of more than 200 mg/dL in a nonstressed, ambulatory subject supports the diagnosis of Diabetes Mellitus. Hematocrit Auto (Bld) [Volum e fraction]Ordered By: Nabil Maya on 09-26-2023 Hematocrit (Bld) [Volume fraction] 40.6 % 34.0-46.4 [facility] Hemoglobin [Mass/volume] in BloodOrdered By: Nabil Maya on 09-26-2023 Hemoglobin (Bld) [Mass/Vol] 13.7 g/dL 11.8-15.4 [facility] INR in Platelet poor plasma by Coagulation assayOrdered By: Nabil Maya on 09-26-2023 INR Coag (PPP) [Relative time] 0.9 {INR} [facility] Comment on above: INR Therapeutic Rang e A) Pre- and Peroperative OAT started two weeks before surgery. NOT HIP SURGERY: 1.5 - 2.5 HIP SURGERY: 2 - 3B) Primary and secondary prevention of venous THROMBOSIS: 2 - 3C) Active venous thrombosis, pulmonary embolismand prevention of recurrent venous thrombosis: 2 - 3D) Prevention of arterial thromboembolismincluding patients with mechanical heart valves: 3 - 4.5 Ketones Auto test strip (U) [Mass/Vol]Ordered By: Nabil Maya on 09-26-2023 Ketones (U) [Mass/Vol] Negative Negative Fi [facility] Lactate [Moles/volume] in Se rum or PlasmaOrdered By: Nabil Maya on 09-26-2023 Lactate [Moles/Vol] 0.8 mmol/L 0.5-2.2 [facility] Leukocytes [#/volume] correc rajani for nucleated erythrocytes in Blood by Automated counOrdered By: Nabil Maya on 09-26-2023 WBC corrected for nucl RBC Auto (Bld) [#/Vol] 11.5 10*3/uL 3.8-11.6 [facility] Lymphocytes Auto (Bld) [#/Vo l]Ordered By: Nabil Maya on 09-26-2023 Lymphocytes (Bld) [#/Vol] 3.3 10*3/uL 1.00-4.8 [facility] Lymphocytes/100 WBC Auto (Bl d)Ordered By: Nbail Maya on 09-26-2023 Lymphocytes/100 WBC (Bld) 28.2 % . [facility] MCH Auto (RBC) [Entitic mass ]Ordered By: Nabil Maya on 09-26-2023 MCH (RBC) [Entitic mass] 31.0 pg 24.7-34.3 [facility] MCHC Auto (RBC) [Mass/Vol]Or dered By: Nabil Maya on 09-26-2023 MCHC (RBC) [Mass/Vol] 33.7 g/dL 32.0-35.0 [facility] MCV Auto (RBC) [Entitic vol] Ordered By: Nabil Maya on 09-26-2023 MCV (RBC) [Entitic vol] 92.0 fL 80-100 [facility] Monocyte distribution width [Entitic volume] in Blood by AutomatedOrdered By: Nabil Maya on 09-26-2023 Monocyte distribution width Auto (Bld) [Entitic vol] 16.11 % 0.00-20.00 [facility] Monocytes Auto (Bld) [#/Vol] Ordered By: Nabil Maya on 09-26-2023 Monocytes (Bld) [#/Vol] 0.7 10*3/uL 0.0-0.8 [facility] Monocytes/100 WBC Auto (Bld) Ordered By: Nabil Maya on 09-26-2023 Monocytes/100 WBC (Bld) 5.6 % . [facility] Neutrophils Auto (Bld) [#/Vo l]Ordered By: Nabil Maya on 09-26-2023 Neutrophils (Bld) [#/Vol] 7.4 10*3/uL 1.8-7.7 [facility] Neutrophils/100 WBC Auto (Bl d)Ordered By: Nabil Maya on 09-26-2023 Neutrophils/100 WBC (Bld) 64.6 % . [facility] Nitrite Test strip Ql (U)Ord ered By: Nabil Maya on 09-26-2023 Nitrite Ql (U) Positive Negative [facility] No Panel InformationOrdered By: Nabil Maya on 09-26-2023 Estimated GFR (CKD-EPI) > 60.0 mL/Min [facility] Creatinine Clearance (Chem 106.90 [facility] Nucleated erythrocytes [Pres ence] in Blood by Automated countOrdered By: Nabil Maya on 09-26-2023 Nucleated RBC Auto Ql (Bld) 0.1 /100{WBC} 0-0.5 [facility] Platelet mean volume Auto (B ld) [Entitic vol]Ordered By: Nabil Maya on 09-26-2023 Platelet mean volume (Bld) [Entitic vol] 6.9 fL 6.3-10.7 [facility] Platelets Auto (Bld) [#/Vol] Ordered By: Nabil Maya on 09-26-2023 Platelets (Bld) [#/Vol] 442 10*3/uL 150-450 [facility] Potassium [Moles/volume] in Serum or PlasmaOrdered By: Nabil Maya on 09-26-2023 Potassium [Moles/Vol] 3.5 mmol/L 3.5-5.1 [facility] Protein Auto test strip (U) [Mass/Vol]Ordered By: Nabil Maya on 09-26-2023 Protein (U) [Mass/Vol] Negative Negative [facility] Prothrombin time (PT)Ordered By: Nabil Maya on 09-26-2023 PT Coag (PPP) [Time] 10.3 s 9.0-12.9 [facility] Comment on above: A hematocrit value g reater than 55% may lead to inaccurate results in coagulation testing. Patients having hematocrit values >55% require a special collection tube for coagulation studies. Please contact the laboratory at [phone] for redraw instructions. RBC Auto (Bld) [#/Vol]Ordere d By: Nabil Maya on 09-26-2023 RBC (Bld) [#/Vol] 4.42 10*6/uL 3.60-5.00 [facility] Serum or plasma anion gap de terminationOrdered By: Nabil Maya on 09-26-2023 Anion gap [Moles/Vol] 11.3 mmol/L 6.0-15.0 [facility] Sodium [Moles/volume] in Ser um or PlasmaOrdered By: Nabil Maya on 09-26-2023 Sodium [Moles/Vol] 135 mmol/L 136-145 [facility] Specific gravity Auto test s trip (U) [Rel density]Ordered By: Nabil Maya on 09-26-2023 Specific gravity (U) [Rel density] 1.019 1.001-1.03 0 [facility] Urea nitrogen [Mass/volume] in Serum or PlasmaOrdered By: Nabil Maya on 09-26-2023 Urea nitrogen [Mass/Vol] 8 mg/dL 7-25 [facility] Urine bacteria detection by automated methodOrdered By: Nabil Maya on 09-26-2023 Bacteria Auto Ql (U) 4+ None Seen [facility] Urine clarity by refractomet ry automatedOrdered By: Nabil Maya on 09-26-2023 Clarity Refractometry automated (U) Slightly cloudy Clear [facility] Urine glucose measurement by automated test strip (mass/volume)Ordered By: Nabil Maya on 09-26-2023 Glucose Auto test strip (U) [Mass/Vol] Normal mg/dL Normal [facility] Urine hemoglobin detection b y automated test stripOrdered By: Nabil Maya on 09-26-2023 Hemoglobin Auto test strip Ql (U) Negative Negative [facility] Urine leukocyte esterase det ection by automated test stripOrdered By: Nabil Maya on 09-26-2023 Leukocyte esterase Auto test strip Ql (U) 3+ Negative [facility] Urobilinogen Auto test strip (U) [Mass/Vol]Ordered By: Nabil Maya on 09-26-2023 Urobilinogen (U) [Mass/Vol] Normal mg/dL Normal [facility] WBC Auto (Bld) [#/Vol]Ordere d By: Nabil Maya on 09-26-2023 WBC (Bld) [#/Vol] 11.5 10*3/uL 3.8-11.6 [facility] pH Auto test strip (U)Ordere d By: Nabil Maya on 09-26-2023 pH (U) 6.0 [pH] 5.0-9.0 [facility] FLUORO FOR SURGICAL PROCEDUR ESon 08-30-2023 FLUORO FOR SURGICAL PROCEDURES Radiology exam is complete. No Radiologist dictation. Please follow up with ordering provider. Final result Normal [facility] Basic Metabolic Profon 08-24 Anion gap [Moles/Vol] 10 mmol/L Normal - [facility] Comment on above: Performed By: #### B MP, CBC #### [facility] [address] [place] [address] Shop Hand: Zion Sweet MD BUN/CRE Ratio 13 Normal - [facility] Comment on above: Performed By: #### B MP, CBC #### [facility] [address] [facility] [address] Shop Hand: Zion Sweet MD Calcium [Mass/Vol] 9.3 mg/dL Normal 8.6-10.4 [facility] Comment on above: Performed By: #### B MP, CBC #### [facility] [address] [facility] [place] [address] Shop Hand: Zion Sweet MD Chloride [Moles/Vol] 97 mmol/L Low 98-107 [facility] Comment on above: Performed By: #### B MP, CBC #### [facility] [address] [facility] [place] [address] Shop Hand: Zion Sweet MD CO2 [Moles/Vol] 26 mmol/L Normal 20-31 [facility] Comment on above: Performed By: #### B KIMBER, CBC #### [facility] [address] [facility] [place] [address] Shop Hand: Zion Sweet MD Creatinine [Mass/Vol] 0.6 mg/dL Normal 0.5-0.9 [facility] Comment on above: Performed By: #### B MP, CBC #### [facility] [address] [facility] [address] Shop Hand: Zion Sweet MD GFR/1.73 sq M.predicted among non-blacks MDRD (S/P/Bld) [Vol rate/Area] mL/min/{1.73_m2} Normal >60 [facility] Comment on above: Result Comment: These [...] Performed By: #### B MP, CBC #### [facility] [address] [place] [address] Shop Hand: Zion Sweet MD Glucose [Mass/Vol] 99 mg/dL Normal 70-99 [facility] Comment on above: Performed By: #### B MP, CBC #### [facility] [address] [place] [address] Shop Hand: Zion Sweet MD Potassium [Moles/Vol] 4.1 mmol/L Normal 3.7-5.3 [facility] Comment on above: Performed By: #### B MP, CBC #### [facility] [address] Shop Hand: Zion Sweet MD Sodium [Moles/Vol] 133 mmol/L Low 135-144 [facility] Comment on above: Performed By: #### B MP, CBC #### [facility] [address] [facility] [address] Shop Hand: Zion Sweet MD Urea nitrogen [Mass/Vol] 8 mg/dL Normal 6-20 [facility] Comment on above: Performed By: #### B MP, CBC #### [facility] [address] [place] [address]. [place] [address] Shop Hand: Zion Sweet MD CBCon 08-24-2023 Erythrocyte distribution width (RBC) [Ratio] 15.0 % High 11.8-14.4 [facility] Comment on above: Performed By: #### B MP, CBC #### [facility] [address] Shop Hand: Zion Sweet MD Hematocrit (Bld) [Volume fraction] 41.4 % Normal 36.3-47.1 [facility] Comment on above: Performed By: #### B MP, CBC #### [facility] [address] [facility] [address] Shop Hand: Zion Sweet MD Hemoglobin (Bld) [Mass/Vol] 13.7 g/dL Normal 11.9-15.1 [facility] Comment on above: Performed By: #### B MP, CBC #### [facility] [address] Shop Hand: Zion Sweet MD MCH (RBC) [Entitic mass] 30.8 pg Normal 25.2-33.5 [facility] Comment on above: Performed By: #### B MP, CBC #### [facility] [address] [place] [address] Shop Hand: Zion Sweet MD MCHC (RBC) [Mass/Vol] 33.1 g/dL Normal 28.4-34.8 [facility] Comment on above: Performed By: #### B MP, CBC #### [facility] [address] [place] [address]. [place] [address] Shop Hand: Zion Sweet MD MCV (RBC) [Entitic vol] 93.0 fL Normal 82.6-102.9 [facility] Comment on above: Performed By: #### B MP, CBC #### [facility] [address] [place] [address]. [place] [address] Shop Hand: Zion Sweet MD NRBC Automated 0.0 per 100 WBC Normal 0.0 [facility] Comment on above: Performed By: #### B MP, CBC #### [facility] [address] [place] [address] Shop Hand: Zion Sweet MD Platelet mean volume (Bld) [Entitic vol] 8.9 fL Normal 8.1-13.5 [facility] Comment on above: Performed By: #### B MP, CBC #### [facility] [address] [place] [address] Shop Hand: Zion Sweet MD Platelets (Bld) [#/Vol] 369 10*3/uL Normal 138-453 [facility] Comment on above: Performed By: #### B MP, CBC #### [facility] [address] [place] [address] Shop Hand: Zoin Sweet MD RBC (Bld) [#/Vol] 4.45 10*6/uL Normal 3.95-5.11 [facility] Comment on above: Performed By: #### B MP, CBC #### [facility] [address] [place] [address]. [place] [address] Shop Hand: Zion Sweet MD WBC (Bld) [#/Vol] 6.2 10*3/uL Normal 3.5-11.3 [facility] Comment on above: Performed By: #### B MP, CBC #### [facility] [place] [address] Shop Hand: Zion Sweet MD Outside Records Officeon Outside Records Office [id number]#[id number] F [facility] Referrals Officeon 3 Referrals Office [id number]#[id number] F [facility] Outside Records Officeon Outside Records Office [id number]#1.00CD :127 Normal [facility] Radiology Outside Office Record Searcher yon 04-13-2023 Radiology Outside Office Copy [id number]#1.00CD :127 Normal [facility] Referrals Officeon Referrals Office [id number]#1.00C D:127 Normal [facility] Basophils Auto (Bld) [#/Vol] Ordered By: Eloy Mcdaniel on 04-12-2023 Basophils (Bld) [#/Vol] 0.0 10*3/uL 0.0-0.2 [facility] Basophils/100 WBC Auto (Bld) Ordered By: Eloy Mcdaniel on 04-12-2023 Basophils/100 WBC (Bld) 0.4 % . [facility] Calcium [Mass/volume] in Ser um or PlasmaOrdered By: Eloy Mcdaniel on 04-12-2023 Calcium [Mass/Vol] 10.2 mg/dL 8.6-10.3 [facility] Carbon dioxide, total [Moles /volume] in Serum or PlasmaOrdered By: Eloy Mcdaniel on 04-12-2023 CO2 [Moles/Vol] 31.4 mmol/L 21.0-31.0 [facility] Chloride [Moles/volume] in S jayshree or PlasmaOrdered By: Eloy Mcdaniel on 04-12-2023 Chloride [Moles/Vol] 99 mmol/L 98-107 [facility] Consent for Treatmenton 03-16 Consent for Treatment [id number]#1.00CD :127 [facility] Consultation Noteon 04-12-20 Consultation Note Patient: MACIE CLOUD Age: 47 years Sex: Female : 1975 Associated Diagnoses: None Author: Star Sherman MD Basic Information Accompanied by: No one. Source [...] mg, Oral, Once a day (at bedtime) buprenorphine-naloxone 8 mg-2 mg sublingual tablet 1.5 ta, [...] list: All Problems Anxiety / SNOMED CT 34005282 / Confirmed Chronic neck pain with history of cervical spinal surgery / SNOMED CT 6028275538 / Confirmed COPD (chronic obstructive pulmonary disease) / SNOMED CT 75722969 / Confirmed Depression / SNOMED CT 76118412 / Confirmed Heartburn / SNOMED CT 76741162 / Confirmed Smoker / SNOMED CT 149214091 / Confirmed Added secondary to documentation in Social History. Thoracic outlet syndrome to both arms / SNOMED CT 317344700 / Confirmed Histories Past Medical History: No active or resolved past medical history items have been selected or recorded. Family History: Clot Mother () Procedure history: Fusion of lumbar spine ([id number]) on 01/19/2021 at 45 Years. Cervical spinal fusion ([id number]) on 10/30/2019 at 44 Years. Appendectomy ([id number]). History of cervical spine surgery ([id number]). Comments: 07/31/2019 14:14 Mary Kate Caicedo RN C4-6 fusion section ([id number]). H/O: hysterectomy ([id number]). Ankle ([id number]). Comments: 07/31/2019 14:16 Mary Kate Caicedo RN Left ankle Fusion of lumbar spine ([id number]). Comments: 07/31/2019 14:17 Mary Kate Caicedo RN L4-5 fusion and replacement H/O: tubal ligation ([id number]). Social History Social & Psychosocial Habits Alcohol [...] Charted Heart Rate Peripheral 74 bpm (APR 12:) SBP H 149mmHg (APR 12:) DBP 87 mmHg (APR 12:) Weight 54.7 kg (APR 12:) BMI 18.93 (APR 12:) General: Tearful. Alert and oriented x3. Thin. [...] cord. Impre (more content not included)... Normal [facility] Comment on above: Result Comment: Elec tronically Signed By: Whit BONILLA, Star Perez\.esdras\Date and Time Signed: 04/12/23 14:34 EDT Creatinine [Mass/volume] in Serum or PlasmaOrdered By: Eloy Mcdaniel on 04-12-2023 Creatinine [Mass/Vol] 0.64 mg/dL 0.60-1.20 [facility] Eosinophils Auto (Bld) [#/Vo l]Ordered By: Eloy Mcdaniel on 04-12-2023 Eosinophils (Bld) [#/Vol] 0.0 10*3/uL 0.0-0.45 [facility] Eosinophils/100 WBC Auto (Bl d)Ordered By: Eloy Mcdaniel on 04-12-2023 Eosinophils/100 WBC (Bld) 0.1 % . [facility] Erythrocyte distribution wid th Auto (RBC) [Ratio]Ordered By: Eloy Mcdaniel on 04-12-2023 Erythrocyte distribution width (RBC) [Ratio] 16.8 % 11.9-15.3 [facility] Glucose [Mass/volume] in Ser um or PlasmaOrdered By: Eloy Mcdaniel on 04-12-2023 Glucose [Mass/Vol] 103 mg/dL 70-100 [facility] Comment on above: ADA recommended refe rence rangeRandom Glucose Reference Range is dependent on time and content of last meal. Glucose of more than 200 mg/dL in a nonstressed, ambulatory subject supports the diagnosis of Diabetes Mellitus. HIPAA Forms Officeon 023 HIPAA Forms Office [id number]#1.00C D:127 Normal [facility] Hematocrit Auto (Bld) [Volum e fraction]Ordered By: Eloy Mcdaniel on 04-12-2023 Hematocrit (Bld) [Volume fraction] 40.3 % 34.0-46.4 [facility] Hemoglobin [Mass/volume] in BloodOrdered By: Eloy Mcdaniel on 04-12-2023 Hemoglobin (Bld) [Mass/Vol] 13.3 g/dL 11.8-15.4 [facility] Legal Correspondence Officeo n 04-12-2023 Legal Correspondence Office [id number]#1.00C D:127 Normal [facility] Legal Correspondence Office [id number]#1.00C D:127 Normal [facility] Leukocytes [#/volume] correc rajani for nucleated erythrocytes in Blood by Automated counOrdered By: Eloy Mcdaniel on 04-12-2023 WBC corrected for nucl RBC Auto (Bld) [#/Vol] 10.3 10*3/uL 3.8-11.6 [facility] Lymphocytes Auto (Bld) [#/Vo l]Ordered By: Eloy Mcdaniel on 04-12-2023 Lymphocytes (Bld) [#/Vol] 3.1 10*3/uL 1.00-4.8 [facility] Lymphocytes/100 WBC Auto (Bl d)Ordered By: Eloy Mcdaniel on 04-12-2023 Lymphocytes/100 WBC (Bld) 30.1 % . [facility] MCH Auto (RBC) [Entitic mass ]Ordered By: Eloy Mcdaniel on 04-12-2023 MCH (RBC) [Entitic mass] 29.6 pg 24.7-34.3 [facility] MCHC Auto (RBC) [Mass/Vol]Or dered By: Eloy Mcdaniel on 04-12-2023 MCHC (RBC) [Mass/Vol] 32.9 g/dL 32.0-35.0 [facility] MCV Auto (RBC) [Entitic vol] Ordered By: Eloy Mcdaniel on 04-12-2023 MCV (RBC) [Entitic vol] 89.9 fL 80-100 [facility] Monocytes Auto (Bld) [#/Vol] Ordered By: Eloy Mcdaniel on 04-12-2023 Monocytes (Bld) [#/Vol] 0.8 10*3/uL 0.0-0.8 [facility] Monocytes/100 WBC Auto (Bld) Ordered By: Eloy Mcdaniel on 04-12-2023 Monocytes/100 WBC (Bld) 7.6 % . [facility] Neutrophils Auto (Bld) [#/Vo l]Ordered By: Eloy Mcdaniel on 04-12-2023 Neutrophils (Bld) [#/Vol] 6.4 10*3/uL 1.8-7.7 [facility] Neutrophils/100 WBC Auto (Bl d)Ordered By: Eloy Mcdaniel on 04-12-2023 Neutrophils/100 WBC (Bld) 61.8 % . [facility] No Panel InformationOrdered By: Eloy Mcdaniel on 04-12-2023 Estimated GFR (CKD-EPI) > 60.0 mL/Min [facility] Creatinine Clearance (Chem N/A [facility] Nucleated erythrocytes [Pres ence] in Blood by Automated countOrdered By: Eloy Mcdaniel on 04-12-2023 Nucleated RBC Auto Ql (Bld) 0.1 /100{WBC} 0-0.5 [facility] Office/Clinic Note-Physician on 04-12-2023 Office/Clinic Note-Physician [id number]#1.00C D:127 Normal [facility] Patient Correspondenceon Patient Correspondence [id number]#1.00C D:127 Normal [facility] Patient Correspondence [id number]#1.00C D:127 Normal [facility] Patient Correspondence [id number]#1.00C D:127 Normal [facility] Patient Correspondence [id number]#1.00C D:127 Normal [facility] Patient Correspondence [id number]#1.00C D:127 Normal [facility] Patient History Officeon Patient History Office [id number]#1.00C D:127 Normal [facility] Platelet mean volume Auto (B ld) [Entitic vol]Ordered By: Eoly Mcdaniel on 04-12-2023 Platelet mean volume (Bld) [Entitic vol] 8.2 fL 6.3-10.7 [facility] Platelets Auto (Bld) [#/Vol] Ordered By: Eloy Mcdaniel on 04-12-2023 Platelets (Bld) [#/Vol] 433 10*3/uL 150-450 [facility] Potassium [Moles/volume] in Serum or PlasmaOrdered By: Eloy Mcdaniel on 04-12-2023 Potassium [Moles/Vol] 3.7 mmol/L 3.5-5.1 [facility] RBC Auto (Bld) [#/Vol]Ordere d By: Eloy Mcdaniel on 04-12-2023 RBC (Bld) [#/Vol] 4.49 10*6/uL 3.60-5.00 [facility] Radiology Outside Office Record Searcher yon 04-12-2023 Radiology Outside Office Copy [id number]#1.00C D:127 Normal [facility] Radiology Outside Office Copy [id number]#1.00C D:127 Normal [facility] Radiology Outside Office Copy [id number]#1.00C D:127 Normal [facility] Radiology Outside Office Copy [id number]#1.00C D:127 Normal [facility] Radiology Outside Office Copy [id number]#1.00C D:127 Normal [facility] Radiology Outside Office Copy [id number]#1.00C D:127 Normal [facility] Serum or plasma anion gap de terminationOrdered By: Eloy Mcdaniel on 04-12-2023 Anion gap [Moles/Vol] 12.3 mmol/L 6.0-15.0 [facility] Sodium [Moles/volume] in Ser um or PlasmaOrdered By: Eloy Mcdaniel on 04-12-2023 Sodium [Moles/Vol] 139 mmol/L 136-145 [facility] Thyrotropin [Units/volume] i n Serum or PlasmaOrdered By: Eloy cMdaniel on 04-12-2023 TSH Qn 1.21 m[IU]/L 0.45-5.33 [facility] Thyroxine (T4) free [Mass/vo lume] in Serum or PlasmaOrdered By: Eloy Mcdaniel on 04-12-2023 Free T4 [Mass/Vol] 0.79 ng/dL 0.61-1.12 [facility] Urea nitrogen [Mass/volume] in Serum or PlasmaOrdered By: Eloy Mcdaniel on 04-12-2023 Urea nitrogen [Mass/Vol] 7 mg/dL 7-25 [facility] WBC Auto (Bld) [#/Vol]Ordere d By: Eloy Mcdaniel on 04-12-2023 WBC (Bld) [#/Vol] 10.3 10*3/uL 3.8-11.6 [facility] Outside Records Officeon Outside Records Office [id number]#1.00CD :127 Normal [facility] Radiology Outside Office Record Searcher yon 03-22-2023 Radiology Outside Office Copy [id number]#1.00CD :127 Normal [facility] Referrals Officeon 3 Referrals Office [id number]#1.00CD :127 Normal [facility] CNPNon 11-09-2022 [place] Telephone (WIQ) -------- MACIE CLOUD ([id number]) 1975 F Date Time Provider Department 11/09/22 YASIRDENY VILLA CATHI WIRohit During your visit today, we recorded the following information about you: Cathi [facility] 11/09/2022 9:26 AM Signed Smoking Cessation Navigation Outcome of contact: Left Message Comments: A voicemail has been left for this patient regarding Tobacco Cessation support options. If this patient has any further questions they can email us at or call us at [phone]. [employer] Research Engineer/Smoking Cessation Navigator: Cathise Shayan [facility]At[facility] Allergies As of Date: 11/09/2022 (No Known [...] mg by mouth three times daily. - lisinopril-hydroCHLOROth iazide (PRINZIDE,ZESTORETIC) 10-12.5 mg per tablet Take 1 [...] Status:Closed by CATHI DIA on 11/09/22 Normal [facility] Alanine aminotransferase [En zymatic activity/volume] in Serum or PlasmaOrdered By: Hussain Cristobal on 10-28-2022 ALT [Catalytic activity/Vol] 21 U/L 7-52 [facility] Albumin [Mass/volume] in Ser um or Plasma by Bromocresol green (BCG) dye binding methoOrdered By: Hussain Cristobal on 10-28-2022 Albumin BCG dye [Mass/Vol] 4.5 g/dL 3.5-5.7 [facility] Alkaline phosphatase [Enzyma tic activity/volume] in Serum or PlasmaOrdered By: Hussain Cristobal on 10-28-2022 ALP [Catalytic activity/Vol] 91 U/L 34-104 [facility] Aspartate aminotransferase [ Enzymatic activity/volume] in Serum or PlasmaOrdered By: Hussain Cristobal on 10-28-2022 AST [Catalytic activity/Vol] 26 U/L 13-39 [facility] Basophils Auto (Bld) [#/Vol] Ordered By: Hussain Cristobal on 10-28-2022 Basophils (Bld) [#/Vol] 0.0 10*3/uL 0.0-0.2 [facility] Basophils/100 WBC Auto (Bld) Ordered By: Hussain Cristobal on 10-28-2022 Basophils/100 WBC (Bld) 0.2 % . [facility] Bilirubin.total [Mass/volume ] in Serum or PlasmaOrdered By: Hussain Cristobal on 10-28-2022 Bilirubin [Mass/Vol] 0.3 mg/dL 0.3-1.0 [facility] Calcium [Mass/volume] in Ser um or PlasmaOrdered By: Hussain Cristobal on 10-28-2022 Calcium [Mass/Vol] 9.8 mg/dL 8.6-10.3 [facility] Carbon dioxide, total [Moles /volume] in Serum or PlasmaOrdered By: Hussain Cristobal on 10-28-2022 CO2 [Moles/Vol] 28.9 mmol/L 21.0-31.0 [facility] Chloride [Moles/volume] in S jayshree or PlasmaOrdered By: Hussain Cristobal on 10-28-2022 Chloride [Moles/Vol] 97 mmol/L 98-107 [facility] Creatinine [Mass/volume] in Serum or PlasmaOrdered By: Hussain Cristobal on 10-28-2022 Creatinine [Mass/Vol] 0.62 mg/dL 0.60-1.20 [facility] Eosinophils Auto (Bld) [#/Vo l]Ordered By: Hussain Cristobal on 10-28-2022 Eosinophils (Bld) [#/Vol] 0.0 10*3/uL 0.0-0.45 [facility] Eosinophils/100 WBC Auto (Bl d)Ordered By: Hussain Cristobal on 10-28-2022 Eosinophils/100 WBC (Bld) 0.0 % . [facility] Erythrocyte distribution wid th Auto (RBC) [Ratio]Ordered By: Hussain Cristobal on 10-28-2022 Erythrocyte distribution width (RBC) [Ratio] 15.8 % 11.9-15.3 [facility] Globulin Calc (S) [Mass/Vol] Ordered By: Hussain Cristobal 10-28-2022 Globulin (S) [Mass/Vol] 3.4 g/dL [facility] Glucose [Mass/volume] in Ser um or PlasmaOrdered By: Hussain Cristobal on 10-28-2022 Glucose [Mass/Vol] 123 mg/dL 74-109 [facility] Comment on above: ADA recommended refe rence rangeRandom Glucose Reference Range is dependent on time and content of last meal. Glucose of more than 200 mg/dL in a nonstressed, ambulatory subject supports the diagnosis of Diabetes Mellitus. Hematocrit Auto (Bld) [Volum e fraction]Ordered By: Hussain Cristobal on 10-28-2022 Hematocrit (Bld) [Volume fraction] 38.6 % 34.0-46.4 [facility] Hemoglobin [Mass/volume] in BloodOrdered By: Hussain Cristobal on 10-28-2022 Hemoglobin (Bld) [Mass/Vol] 12.9 g/dL 11.8-15.4 [facility] Laboratory - Chemistry and C hemistry - challengeOrdered By: Hussain Cristobal on 10-28-2022 GFR/1.73 sq M.predicted MDRD (S/P/Bld) [Vol rate/Area] mL/min/{1.73_m2} [facility] Leukocytes [#/volume] correc rajani for nucleated erythrocytes in Blood by Automated counOrdered By: Hussain Cristobal on 10-28-2022 WBC corrected for nucl RBC Auto (Bld) [#/Vol] 13.4 10*3/uL 3.8-11.6 [facility] Lymphocytes Auto (Bld) [#/Vo l]Ordered By: Hussain Cristobal on 10-28-2022 Lymphocytes (Bld) [#/Vol] 1.3 10*3/uL 1.00-4.8 [facility] Lymphocytes/100 WBC Auto (Bl d)Ordered By: Hussain Cristobal on 10-28-2022 Lymphocytes/100 WBC (Bld) 10.0 % . [facility] MCH Auto (RBC) [Entitic mass ]Ordered By: Hussain Cristobal on 10-28-2022 MCH (RBC) [Entitic mass] 29.6 pg 24.7-34.3 [facility] MCHC Auto (RBC) [Mass/Vol]Or dered By: Hussain Cristobal on 10-28-2022 MCHC (RBC) [Mass/Vol] 33.4 g/dL 32.0-35.0 [facility] MCV Auto (RBC) [Entitic vol] Ordered By: Hussain Cristobal on 10-28-2022 MCV (RBC) [Entitic vol] 88.7 fL 80-100 [facility] Monocyte distribution width [Entitic volume] in Blood by AutomatedOrdered By: Hussain Cristobal on 10-28-2022 Monocyte distribution width Auto (Bld) [Entitic vol] 13.39 % 0.00-20.00 [facility] Monocytes Auto (Bld) [#/Vol] Ordered By: Hussain Cristobal on 10-28-2022 Monocytes (Bld) [#/Vol] 0.2 10*3/uL 0.0-0.8 [facility] Monocytes/100 WBC Auto (Bld) Ordered By: Hussain Cristobal on 10-28-2022 Monocytes/100 WBC (Bld) 1.9 % . [facility] Neutrophils Auto (Bld) [#/Vo l]Ordered By: Hussain Cristobal on 10-28-2022 Neutrophils (Bld) [#/Vol] 11.8 10*3/uL 1.8-7.7 [facility] Neutrophils/100 WBC Auto (Bl d)Ordered By: Hussain Cristobal on 10-28-2022 Neutrophils/100 WBC (Bld) 87.9 % . [facility] No Panel InformationOrdered By: Hussain Cristobal on 10-28-2022 Pharmacy Creatinine Clearance (Chem 91.96 [facility] Nucleated erythrocytes [Pres ence] in Blood by Automated countOrdered By: Hussain Cristobal on 10-28-2022 Nucleated RBC Auto Ql (Bld) 0.0 /100{WBC} 0-0.5 [facility] Platelet mean volume Auto (B ld) [Entitic vol]Ordered By: Hussain Cristobal on 10-28-2022 Platelet mean volume (Bld) [Entitic vol] 6.9 fL 6.3-10.7 [facility] Platelets Auto (Bld) [#/Vol] Ordered By: Hussain Cristobal on 10-28-2022 Platelets (Bld) [#/Vol] 528 10*3/uL 150-450 [facility] Potassium [Moles/volume] in Serum or PlasmaOrdered By: Hussain Cristobal on 10-28-2022 Potassium [Moles/Vol] 4.1 mmol/L 3.5-5.1 [facility] Protein [Mass/volume] in Ser um or PlasmaOrdered By: Hussain Cristobal on 10-28-2022 Protein [Mass/Vol] 7.9 g/dL 6.4-8.9 [facility] RBC Auto (Bld) [#/Vol]Ordere d By: Hussain Cristobal on 10-28-2022 RBC (Bld) [#/Vol] 4.36 10*6/uL 3.60-5.00 [facility] Serum or plasma albumin/glob ulin mass ratioOrdered By: Hussain Cristobal on 10-28-2022 Albumin/Globulin [Mass ratio] 1.3 {ratio} [facility] Serum or plasma anion gap de terminationOrdered By: Hussain Cristobal on 10-28-2022 Anion gap [Moles/Vol] 13.2 mmol/L 6.0-15.0 [facility] Sodium [Moles/volume] in Ser um or PlasmaOrdered By: Hussain Cristobal on 10-28-2022 Sodium [Moles/Vol] 135 mmol/L 136-145 [facility] Urea nitrogen [Mass/volume] in Serum or PlasmaOrdered By: Hussain Cristobal on 10-28-2022 Urea nitrogen [Mass/Vol] 10 mg/dL 7-25 [facility] WBC Auto (Bld) [#/Vol]Ordere d By: Hussain Cristobal on 10-28-2022 WBC (Bld) [#/Vol] 13.4 10*3/uL 3.8-11.6 [facility] Coding Summaryon 10-13-2022 Coding [facility] NefcdkfnFTh8dHf+PGhlYWQ+ HH8UHOVaX13kmTZxdR9QO3cW GN3MZAYDMSUPGC3QQE6pyZN2 MBfiJ5FpbjUd MkjdkLAkRE93AGl8FCV4xFtw WFvmlJ4hvMRsC1r6CiLqXB94 sW63LGogZMDmQkW6GkVsxyup bWFy J2vzZoWqsOYpPdx+PHRhYmxl IHdpZHRoPScxMDAlJyBzdHls EP4lIo6wBPQxGJDunOglvAMp OiBj x3ahJNXiNIibWT5jdHakR4Pa lIT8EKQss8a5Hi04aZU+PHRk CDQ8gDlpZMwbc502AqCde0ph IDM3 zQTpHUxiZMY0S71dp5E9INUd EUQjVRC2nHA8gP2naSkwjsrj T0EsnRVvOoD6AOO4cAGerG7h bGln dusbyL2yTup+B30KTG3LGPTZ JR8MQsm8H3AyQnjwjLO+PC90 QIDgGP47dFKlbWLwr7zwsXi9 JzEw PGGpGJK8cXkbEBoxx7PvVQQm S17nuJClp8K7DVZgfEyhqJTj XzLfgLG1cX0mXNsjqgdoe1rs dzsn Mufqx2qcbd01fG11N80dOGli TLKiTUI8CEHmEJPpfVkunl3p eB3vDa7+FCtad9nwj6nzxPp3 IjIw UTBhzrYokYlgYNV4r4KjDi36 A4AlqGsnv5AcFka8mc30bQXo s7L1nHA8RLpmVQQpoB8uAGcd ZnQ6 OQDpMpBtiU36gBBqAJdbDa6t xLrewValRH5bPEAcmykcEDCc zQ9pFRIfdJUerUqsAJ0fWEMf bjtm f511LnWuEGI3MGZrwNNfG0Vj xI2uFfJiOFXbPPEiG5YkvEMd VOzhU730FCbiUfX7OAPbsqQp Y2Fs TSRzwLkpEsG7s1F6Vj0Pq1Tv sfszLBU1GQglXZJbZcQkKsRe YuV2G7WlZqu5CYSbmXpoTY9w J3Bh CZRddvceabnmyMO5WUFwCIPa qI17oLTkBRngUc2zh9U8d103 KUEsZHQedN50Lj9sdRbvRHOk dCBU zI0gkcywf8khdycvDkFcUPWq ZFe4SHa8QMIypJkrWyOpWVM6 QfX1YTL8oVUuoX6vsSwcjgps dG9w Oyc+A69gyZ0uONJ6KIW6erih EDKhavIvJP06UA36I1ByZcqi dGFibGU+JVSoyoIhxIixGY7e YmFj h1mdw1NlHHzoD9QjPZMyXOvd Jhs4PLQfXWV6aXU5yX3kJTUh VAnyl0Q3vWS4J0FzucUeiy8f b2xs TLDfIVylY73lcSGsd3M7ZAZy sDZ9QWNjpYmrSpBvuT03Biz+ MTEwcNymo3FcWfufr0uhw7qy dGg9 WuBuSKMskpXvdUsqOLA1s5Gi Qi98Y97fGQegSZTwIBAmZAEz VHSxfSglcm8mvH2bCd3+PGNv bCB3 pQE5zD9gWTFiRvN9NPetI758 GlGqjHZyIpipq4kho8ahoEt6 GbKlVEWppdTvcMegWSD6j8Fo Lz48 G45sQNvgSZEbSXHuYDVwTCPi sDigfg0ljP3kPd9+IL3sg1cc ui62hK29rXR+WPQvHHK9eHwj PSdw JNHspV4mYEzdTgA6SWEpDfQy cM80xHTrEJtvTt1nrXstmRcb KM5nBUGudlijk053HvFgc5ml IDEw tVOeTSdlTYM4M22ux4G7FFUt ALQlCBM3oVD5yB1mtYwnkgsm bGVmdDsgdmVydGljYWwtYWxp Z246 IHRvcDsnPlBhdGllbnQgTmFt KNi0C9NeWqs2DYMklOduMY1z tECtFMehEe9ieGjduZqeIG3r NTBp gydsv886PwFrk5tnHKVjkYPa FFlrZTW6V52za5G7OIVyUTPf WEO2lZY2fP5jkPubypecsUNo dDsg gvHulHspROozVVwgB724DEGt sWhsYaNltcPgCQNzqBO8SF49 HZ72aYKnl3T2eQY6H7MzPHIy bmct ubytyHD3CDSeOLNziW20So4m kKscMh9iPNYvCFQ2QKQxoPXr T3XvpE6vPmMzNKBpIQSpA0Lq eHQt QAoaN620TTzyQaA5EMDkjoLs K7PxDIXxvBshElP9b8Y4Cm3U W6Z9EM43NR11lMVof2A0rIF5 J3Bh QJVbjwzapvgzyWJ2FXWgSZMq aD63Fy2cmNgbHh0vGSGpYCR5 WOTimAPzV9TcvM7xMjXhCOZr MDAw V1ApyZStZXfqX441BNslJkJ8 VQCnyiFjF1RxICEskFvtYmO4 f0R5Wx8EURq4JU18XS03tWEo c3R5 pXU1V0ZvNLXeodeyrqhygXH5 EJZwLIAoyK65Yc9jrPzqQc7j JHAuAOW1EGEsyHEsF7EtqS5z OiAj MUXmOIBiL0QleZYnDWimB689 LYizZjH0HDCkfpPtF0FlNVXc dPsvQxE8q6F0Aa4RYDNpPF47 IFR5 lMX1NU99WB54V2AuZpzhxKWn bGU+PHRhYmxlIHdpZHRoPScx PFThScHdmYwbUY6kBe1kGSCf LWNv uFpsyLKmFsLin2uaOTUtJMdv JN7dvZslJ0GprJG7JGUzq4r8 Zs03T66wO8GisXK+PGNvbCB3 aWR0 qN2bErRbNvV4AZtwY845EnRr cMJyNtqvg0dfb2iwcXe9UcM6 UMVewdGpzTsjUNT9b5VhWj14 Y29s IHdpZHRoPSIxNSUiIHZhbGln dk6drX9kSr8+UZKjkUQ2qOP2 sM9iAxMhXdM4RRneC971MwZo cCIv Ozazr4jjx8yrbOc6ZtXhLEUt efZciHqtZRK2e0AeOk41D6Xy dDhsp4PtWpc6cs59yCJov5J6 bGU9 C7KvMERimlcbvDTqxQyqRU6c SBBqsmhzFTFrxK1kTCJhJ1d1 GpHaUmU2LKvaF0SrukY6DFDu cHQg XSgnNLR0R50ky3D7ZMQwQEJu PLQ8fDH6sR8ihQvcejxtiBIb xQwitrLqiWadBHdwVQzkC756 IHRv dJhpYXLciB5vPEGcuTTrgNom ZX9yFJHmxwgbNqCUFIrWQHUV NBKXWSW6D8WlAyu6AYCioDah ZT0n vORrRYjlWv8foHsvvTwzFH5u OZCkchmlJRFmtQ9bILEdyUDi cSqeZR4dZJPrhblfq931XxOd MHB0 XMOeoMIvB0TzsW2sPcXfUSRu WMSjP3MuxOHwIDnhY874DPkv AcW4BEQpfpBqA5TnQVAbaWkc OiB0 h5J0Jq4eFj9uFr5oUOwuBV17 PB89aESeq9I4aED7B4AnNJTf lvpsrcthlDY2DQZwWSKtvT94 cGFk SQnvKv2jx5P9j525UPIzQRZr wW24Vr6ngFliHFUaxLXKaO5x vjyem1xvnttoZkCcZYRsGQa8 ZXh0 UJLfnGhjQwSlPBE2DgV5YKH6 mZIavJ9aoKdyibasoB1gHmi+ KDtuAZWtvkM0P6YpZik6JTHc dHls HE0fvWQnALptLr4qlPltgFcg UO0uLRHzpjeiEIDmwR5lNHOt hFIfiLkwUG0bRZBpxdubn159 OiAx GTC7FJWaaYNcY7ZggA3jTwVd VRAfCZWuT4MreOTwMOwyB537 CYfpMaP9FTPtzhWsX8PyXAXo aWdu GgL7j7L1Tv6EFT4VELL4K6Su Dhv5ABAlsBdaIB3pgEKnYIik Bu1wqZkndCndZZ5oODLbstwu YWRk bT4jNSQjpVScgQfhVI6uVSZw erxlh834AwWrFGC4PVEqmVOj B8LcvA3pGrEjGMInLALuH2Ey eHQt XPnbZ650TEmjVkR4GPDltuSa G7GaGOAaaHroGzO5w7B6Rw5R UDwvdGQ+OA02br00M4AcDkcd Pjx0 CDYcGZW5uKK6eJ9mGHNaAIbk v1X2mCF0O0EmrtPead1rc7zj EFGiAMquW33mcWScm9J7NRYp cHR5 KRAtkMxiLtXfoZ17Ofx+PGNv eDtoq8XdFilct3mdn4sjyFq4 AcIgZELuiuZpuApyLVU6w9Xx Lz48 H29hHHwuENPxJRHeBYRiCHXq jBmsyn1qpD6lOy3+PGNvbCB3 aKA0sN5hVlLxXbE8NCexG070 InRv yKBrOgzyj3mfn5ukqMg9HcFd VUAyezCclFrcKUC7j2VcTl95 V9HatBbnb8MwGor1qg54tMKv c3R5 rFL9T8KjLZGbyokarBLkeMum EG3gTSGtdwwfOQRtnQ3aYFCr O9p9HxHiLvR0MUxbI2BtfaL1 IGJv gKCqBMTrjNHZeP6onduyf9lx smgdYiTzWVOuYJq7XPs2IDIn vCngEmLpDFM1RvK9TSP8jYOb bC1h uGddqrstyJ8bBkx+ERp6p8vu jZXhYK3arMS4OU58ZP98nQUz g2U9oRP5Z7CeKIRhkpdpqqfd aHQ6 KMZbAADlfS18Uv7swPanTr5b YUEvVFF0EAFlbRYiZ3JxwD7u IeJeCRJtEJZkK6CizBHaGVud Z246 IVlvAvC5KLNmgwYjV3LfZGEd uEldIyX9x2M3Yj0ULS61UO65 SW61sXDcm4X9yPG0O7CqHCVq bmct migzrJX4GDKxFBVayC87Mv4a yExoXc9yTFSnLGJ4WLZzlSYi A7XfeQ1kNiPsJBCjMRYoL4Un eHQt MTzwB312YXnzCjY0QVMopfMe X2CxUKIjhNffKxR9j4G1Lj8X Qb84WD25XD65oTCpe8O4uSB2 J3Bh IDIywiccsquxnCK8OYVrBLZr jT89Kh4olKpyMx2dHMJtOWQ2 SXVllWTzV3OqmD0tTbKdWFAh MDAw S2KxsJKpYTnyO519CRfvSsH1 LQCotxJcJ8QhWTBraHytAzN1 a9T3Cg5SHRoptqe4F8OiXzte dHI+ TB92OONtPL66zMOxcGKqg5fe eLy7OvTgGUFcZLZ7tXcfWFwe s3InPVUsY23aiIAlc9I6QWIi bGxh cHN (more content not included)... [facility] Coding Summary HTMLBase 64 EphwqypuPFk9kFo+PGhlYWQ+ QZ6GIZOtF33gaKRguR1MD6vX NK0EGIXLVHVYXP1ZUG0mvTX7 IXhcR8DhzqHk UpojqQFxZM72YHe4SFD4uMgg FRqquF9iiVOuV1b0WbNlYE98 eV14CWgeKIPoMeW7EqLoizlr bWFy H5gxVlHnuVRgWsm+PHRhYmxl IHdpZHRoPScxMDAlJyBzdHls JM4qGz7rBOEoVPMfvSwugDSj OiBj k4hnJPVaDHxkOG1prAkrC9Qc oFJ7AIFmy7b7Eh83hDD+PHRk MZS4hRsxEDisb597QwVhk8yu IDM3 xPWkHWqcUVR8A77qw6N0IPPt ILKiBDJ9gYP7qJ8ktCpqisno W6AplOHyChW9BCY4nKXbiT0a bGln rhryuR1lRcr+D15ZJE0SZSEJ UE0CLxs6A8WpIdpyzYX+PC90 HSVlUE07nFYviSHej6fjfSb7 JzEw PSKoCXR8pNhfSUszk1WfBGBx O39dnATwn8U1MAVmlHoilYRq NxHepUK4vV0tFTkmodwwz8xn dzsn Iumaw1gdgz54gE45Q76iDHwe NXByUKF7RLSoBHLtsOwogi0o uC4iWg6+GOhav7boe3tmpDj5 IjIw TOZazfPgsXtdNDG4u5AdCb06 U5RtpUqdw4DpOxo6tv74lCEv p1D0zWG2XAldEYVwvC1vPLzm ZnQ6 CFLyQmLqiW39mMXxBZtkIm7h wIefoAhjEW4wDYSenbfaEKLd mY1tPFXyhWGrfQhyKK5eVPYd bjtm c569QfTaGPX0XGAarVWsM1Jh bN3nScAtZIYoPSVnP9IkpVPf YVevM993WIzlPkN2MJQkbyTf Y2Fs WGAfdGxpBrI4r8M9Sn4Ov3Xp qzfeDNC3EQlvEDNzNaBvRwQm RlK0P7MvMbc3AQPpxFgvSD7u J3Bh NITyqppnlogpbKP8SHBjMWBl dY08nEZhBWawJx4pn5M3m571 TLEwZHByhC99Bm8wiVncOZTg dCBU qC9utvgpu4sulirqEiCsCNEc FAd0CLs0QVYvwKndGpSxEBT7 RoB1XTJ2wEGphD0haYpkamaf dG9w Oyc+Q53tbG5tIZB1HRZ9vjfp YPFercBvVE63OZ04G9SmMjor dGFibGU+IQCilhIopExwMU0s YmFj x9mkp5UpVOarN2EoHJCmBExd Piy5BPLjNJE1lNY8vL3cMPRq RTdkk7D1tZB5J1AgcxJtrb4z b2xs BFLaZZdoF17pnHPvh8L3KZUi hFK5VUQfaYceOjRuvO63Wot+ UOKkfEfza9XwCzlqr0sod5zl dGg9 GhShMQAdwxMmmKcwBJY7b2Gs Ub74D38zYTsdHZTxIEJiQQLs NYGgkSrljj8cmW6gAt9+PGNv bCB3 kJM0mC8zQRFrAfI8VGlpV293 VtQtqOLxZjqfh2wlk5zufWe9 IySaOYTfueAemItzUCG7l5Tj Lz48 M09yVKumROWyYKVsCHOeKJKd zGluty0mgB5cBt5+TI6kh1qr kw77aF68zWP+UDLtOWZ0yAqu PSdw UJFsbD0oPNxwFjH0RPBmXrAr wM55kLYtRRxlCb9peFwtgGkh ZL6aUPZvzuznu752ZcCyh3zj IDEw fEAgUTrtLBI6F92wt6R1HMDx VTDvNIL3zCO1mY3yuYvsjefu bGVmdDsgdmVydGljYWwtYWxp Z246 IHRvcDsnPlBhdGllbnQgTmFt YFn3Y0IuSis7TCCvpGmsBG1m cZJzNNbeKg3zhHasrJpbXN8d NTBp lowik778UnPom3prZTOumEYl YMkdWRP1T53ef9W2NQJsKRXg TYO1yGT7uJ3sgPgxrpthbMVz dDsg jrTmeHtiWWuyTFmqS486UMHk zKhwSqIahiVcFBIglFQ8IC74 JP83uTObu5O4vOT4E6RfWKNq bmct uyakaVB9OJDtEELlvN69Pv5w bXsyRh3aASDmEZB2UPQwsWZx A8ZbtN2yRrTlMJIjSVTwH6Ps eHQt QQpzA187YUjjRyE8BMXwqlYx R3VlLRMgrPraLnK3v5B6Tk1Y J1W1HY27DM51bKDho1B3kWW8 J3Bh MVMdcaityydhmUE3CMQfOAUl fQ16Uq1kzFeoAy1sQPGjILG8 QZHmzYJvF1BgrU3bThDnOUEw MDAw L9IcrISvAVilP033WVacUiP5 SRXdwxWhL8MyGLDhgNmeGbN2 t9Q5Ij1ZEOr7ZB42MM85hVBv c3R5 jHI2B8TqIYSnpmoiqqakmNB0 EYSzNHHrcA48Kw3jbIkfIz5q XZAfGMN0VCPqnFViV1IezZ2v OiAj IVBvPYQxY6WaoWYjNRsdH356 GHxwHpW9JDRygtYkL3YwKLQo aVzwOjU1m7B4Km9QNPFpWA88 IFR5 eSD0SR47BX81J3DmUazlrTYf bGU+PHRhYmxlIHdpZHRoPScx QFJbQdLhzAyzGB0zVi6nFBPe LWNv nUifvNGrZxNyu3ccRNBqWQpd DW9zwMwmZ8IfxFE7FHZbk7b1 Mh65V68sL2UemKB+PGNvbCB3 aWR0 eT7nUwQrYqF2JTneQ114MwJu wPVlLcosi1xbn8rsxXk9QhP3 LTLlygZnqNokLJN2f1EbVj48 Y29s IHdpZHRoPSIxNSUiIHZhbGln xy8svT4gMl9+RWEdrNO5sIP4 bN0hHgHyPwK1OWgfM656JbGh cCIv Zqujb3ghc3eoyRh0GqPzRHYv xwJfvAwlAPT7o5PfYw84N2Gx uIruk9RhTqq6el35uMWao1J0 bGU9 M1CeCFQnjrqmeFTpkGedGC9d HZZailxfROCluY4nKCWbA8p1 WxFbPrT7RUmtM9VgxoP9AZHm cHQg CAbwMZT9T44hw5Z0GLSiPWFs VLW0xGJ3aU4bpJsmvbfryJUj xXvryiDhoVejZFlfTZtjB735 IHRv eYieSZWseZ3mLPFidJLlqFpg EA2hTPXmndpgSbHXSAbBNDAH IVTRQNP7V7UlDyj5YGHcaOpw ZT0n yEDeWTonNc2ftWdlsWijPB6x LTJddxduCTWzuJ2zMGNvsOOc oGgfYN5uFYQliovqi080ReTm MHB0 DUVmvPYwH6QrsE5jCxVgFMRs YYAqY3YjrEQrFJvdA494PNfc McG5WXUhbgOjB4JaZZYvvCiu OiB0 i9M8Yk8vCz2eTf7wRWrmHC70 PN07eQMgo2E4zXS4A7ZpUSKd hxhlxqewgJE1UAOkRVUotB36 cGFk ETtxLq8lj9R3r761KNFpIIQa rU63Hl7dbTqqMUCldVJToE0r uejrb8kkekzsVdHiPUSkHCv0 ZXh0 HKTjpDwpKpHvTTR4BbL6REO5 gAKghV5onGqnxnlxfA6rBbv+ CYyaMCVzvdG6S3MpZnk1MUGn dHls AM1wjIUgPMruEq7cdDcsrHdn ZN4oILJyeqmaSYLobC8wUJCb lFMqhHtsUN4xKWNhpgsmf998 OiAx WLG6KRZykOLhS9DweN7jBhNu QKYyUJSlM9IzgLNoUPmcA668 VRzjAjL4HZFmoiZyB0SxXLPf aWdu SpU9k0V7Mm3XPL0VQBP1F6Gw Fjh1HFGlwPbtOC7lxOJhJLwz Va9zaLluaJgjRX2oFSJjmfly YWRk jZ5hWAOsgAIuoVisXO7wQHGy axjcq399InEnPEU5VSUzaFVb G8TdmS3lHnEyLGAwPLEaC8Li eHQt HYbmQ633EBqnZrR5FESkrgXo H9EmKWPqsWecMaT1l5U8Xu7T nONrD4PaX4o2F1TpLxujcGE+ PC90 TMQzSX72jWAwtZPqd6eotJh6 AbNzUAPiHYW5uMloXWbax6Kg SEVbO05laOOkx9V7DKEjtEbt cHNl IaNkyLX0yM9fIArldvwsp8xa mhfvRznoz1rqzs35qG48Y13d IHdpZHRoPSIzMCUiIHZhbGln bj0i xG0jCw5+LQQtsJX5fBT4eO1m SkQxEoJ0TPxuC900UqKcbLIi Fzgpg5nll6vgxCz7KgVrATIw dmFs vCvrBVH2k8VsKs14A73tHKfh JVHhRNBqZHFcGYEfvJzikf7a eC0mVy9+JR7zy0xzwa14fX62 dHI+ CUAvDOX0wLecVSkxPPQtxS6h HYlgZiL8CFRuMaVfuS15yJRf RNudYk1oiWgygPyhXX1qCCWf bjtm x042SlEco3ehYNVwoQDaOTfj RDQ1Z14fn0N7LERhGZXbXDA0 kBP8pC0hsKgqrzgktJCkfGku dmVy zIuxSLfcAQlbU205GFCigFxy SjVlcNXcY8fhonVEJB3vMihx dGQ+ZTRpXWM2mUixQWxnAAHu aW5n FUOyZ7b6KsEqRpB5YMcpG3Qk woD6MPApyWNuIZRomCTEhX6b vrhrl1dfmcuxAsPoLFOdVEr1 ZXh0 OHFpnHfnMdKlJZM3KaC9UMW2 fBFveW3ybBriuzkojC5vFay+ RklOOjwvdGQ+VJVyUNS6hLek PSdw HBZndV1rGDKfO8y5XpTuLzA2 KCkkD3CwtaG5MAGkjQEqVJIs sOKNtM0qdvqol4qgtzcqUyNr MDAw SIg6YUe3LYWiaCgmEiEnHLM2 FcZ6YOJ9iPBihU0hpVwnirun eF9oKwl+TVJOOjwvdGQ+PHRk IHN0 lEabAHdmSQMctM7bBVXkQ0x5 NxKmHnL6VFymQ6BkesM3ZZJu tTCuDZRkgXNSdU9nwkkgu3nl cjog JvGxNAStPBo8BFt9TLMgbMmd PgWzYXD6OlJ2GAG1kJUtrH7k uDjlsvspbC4pAcm+RZB1SCV2 PC90 KE81F7KyYmparPTdfWK+PHRh YmxlIHdpZHRoPScxMDAlJyBz fCbaFP2cMd1nHSDcFCYbmCsz cHNl OiB (more content not included)... [facility] 10-07-2022 CNPN Telephone (SPNSMN) -------- PEDRO LUISMACIE Thacker ([id number]) 1975 F Date Time Provider Department 10/07/22 TOO HUGHES During your visit today, we recorded the following information about you: Karen Watkins RN 10/07/2022 9:11 AM Signed Neuro SPINE CARE COORDINATION SURGERY SCHEDULING Pt scheduled for 12/30/2022. This date is now an OR at [facility]. Due to this, pt will need to [...] Dr Hughes at 240pm [address] [place] ([facility] Date): anytime Pre op Education: 02/08/2023 [...] for Visit: Surgery recsheduling [Other] Care Coordination [3491] Prescriptions as of 10/12/2022 - Mesalamine (LIALDA) [...] mg by mouth three times daily. - lisinopril-hydroCHLOROth iazide (PRINZIDE,ZESTORETIC) 10-12.5 mg per tablet Take 1 [...] Status:Closed by KAREN WATKINS on 10/07/22 Normal [facility] CT Spine Lumbar w/o Contrast on 10-07-2022 CT Spine Lumbar w/o Contrast EXAM: CT Spine Lumbar w/o Contrast HISTORY: pain/fall 3 weeks ago COMPARISON: Lumbar spine CT 08/04/2022 TECHNIQUE: Axial CT imaging is performed through the lumbar spine. Sagittal and coronal reformatted/reconstructe d sequences were performed FINDINGS: There is prior [...] No visualized acute abnormality Final Dictated by: Rigo Alston DO Dictated DT/TM: 10/07/22 9:16 Signed (Electronic Signature): Rigo Alston DO 10/07/22 9:19 pm Technologist: Pauly ZEE [facility] ED Clinical Summaryon 2022 ED Clinical Summary [facility] - Emergency Department [address] [place] [id number] ED Clinical Summary PERSON INFORMATION Name: MACIE CLOUD Age: 47 Years Sex: FEMALE : 1975 MRN: Acct#: Visit Reason: Back pain; BACK PAIN Arrival: 10/07/2022 19:31:00 Discharge: 10/07/2022 21:28:00 LOS: 000 01:57 Check In: 10/07/2022 19:31:00 Checkout:10/07/2022 21:28:00 Address: [address] [place] [address] PCP: CRISTIANO GRAHAM PROVIDER INFORMATION Provider Role Assigned Unassigned Rosi Alex PA-C ED PA 10/07/2022 19:33:11 Danelle Mar RN ED Nurse 10/07/2022 19:56:16 VITALS INFORMATION Vital Sign [...] Pain Follow-Up: With: Address: When: CRISTIANO GRAHAM [address] [place] [phone] Within 3 to 5 days DIAGNOSIS: 1:Chronic back pain greater than 3 months duration; Other chronic pain Patient Understands: Yes - Patient/family/caregiver verbalizes understanding of instructions given Comment: [facility] ED Note - Otheron 10-07-2022 ED Note - Other [id number] TIFF [facility] ED Note-Nursingon 10-07-2022 ED Note-Nursing Pt walked out of eleni m and stated that she wanted to leave. Pt educated that she would have to leave AMA. Pt states ok. KT, PA filled out form and patient signed and exited the ER, walking independently with family out to private vehicle. [facility] ED Note-Nursing Pt requesting to sharondasandy benavides and have results sent to her surgeon. [...] image to come back prior to dc. [facility] ED Patient Summaryon 023 ED Patient Summary [facility] - Emergency Department [address] [place], [place] [id number] PATIENT DISCHARGE INSTRUCTIONS Patient Information Name: MACIE CLOUD Age: 47 Years Date of : 1975 Reason For Visit: Back pain; BACK PAIN Arrival Time: 10/07/2022 19:31:00 Primary Care Physician: CRISTIANO GRAHAM Attending Physician: Herbert Pacheco MD Comment: Visit Diagnosis: Diagnoses This Visit Back pain ([id number]) Chronic back pain greater than 3 months duration (M54.9) Other chronic pain (G89.29) The Pharmacy at [facility] is open Tuesday through Tuesday from [...] alcohol and/or drug addiction problems; contact the [facility] 07/03 Crisis Hotline -Text [address] rd [phone]. If you received any narcotics, sedation, or [...] legal documents With: Address: When: [facility] [place], [place] [id number] Within 3 to 5 days Medication Information: The exam and treatment you received today in the [facility] Emergency Department were for an urgent problem and are not intended as complete care. It is important for you to follow up with a doctor, nurse practitioner, or physician?s clinic office assistant for ongoing care. If your symptoms [...] so we can reach you if necessary. [facility] Emergency Department has provided you with a complete list of medications post discharge. Please inform your primary care nurse practitioner/provider of your visit and for further instruction [...] provider may recommend (more content not included)... [facility] 09-17-2022 BANNER Telephone (SPNSMN) -------- MACIE CLOUD ([id number]) 1975 F Date Time Provider Department 09/17/22 TOO HUGHES [facility] During your visit today, we recorded the following information about you: Karen Watkins RN 09/17/2022 12:51 PM Signed Neuro SPINE CARE COORDINATION SURGERY SCHEDULING Per Dr Hughes OK to schedule pt for surgery. Patient accepts surgery date of 12/30/[address] Too Hughes at [facility]. Planned procedure: Revision L3-S1 and ext to L2 lumbar fusion. Length of Surgery:5 hrws Expected Length of Hospital Stay:3-4 Patient's Home Address: [address] [place] [id number] Medications reviewed : Yes. Meds to be [...] , and nicotine. Education Sent Via Mail/ JDCPhosphatehart: [facility] PACC Questionnaire Completed: Yes Qualify TREK for Surgical Success?: Yes Patient placed on cancellation list: No Pre op appts: [place]: anytime PACC: [facility] 12/07/22 IC: 12/07/22 at 1140 am with [...] stop smoking before surgery. Call back # [phone] Karen Watkins RN 09/21/2022 12:52 PM Signed [...] questions or problems arise. 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 - lisinopril-hydroCHLOROth iazi (more content not included)... Normal [facility] Albumin [Mass/volume] in Ser um or PlasmaOrdered By: Michel Venegas on 09-16-2022 Albumin [Mass/Vol] 3.8 g/dL 3.2-5.5 [facility] Alkaline phosphatase [Enzyma tic activity/volume] in Serum or PlasmaOrdered By: Michel Venegas on 09-16-2022 ALP [Catalytic activity/Vol] 88 U/L 32-92 [facility] Amphetamine Screen Ql (U)Ord ered By: Michel Venegas on 09-16-2022 Amphetamines Ql (U) Negative Negative [facility] Aspartate aminotransferase [ Enzymatic activity/volume] in Serum or PlasmaOrdered By: Michel Venegas on 09-16-2022 AST [Catalytic activity/Vol] 21 U/L 10-42 [facility] Barbiturates [Presence] in U rineOrdered By: Michel Venegas on 09-16-2022 Barbiturates Ql (U) Negative Negative [facility] Basophils Auto (Bld) [#/Vol] Ordered By: Michel Venegas on 09-16-2022 Basophils (Bld) [#/Vol] 0.1 10*3/uL 0.0-0.2 [facility] Basophils/100 WBC Auto (Bld) Ordered By: Michel Venegas on 09-16-2022 Basophils/100 WBC (Bld) 0.9 % . [facility] Benzodiazepines [Presence] i n UrineOrdered By: Michel Venegas on 09-16-2022 Benzodiazepines Ql (U) Positive Negative [facility] Bilirubin.total [Mass/volume ] in Serum or PlasmaOrdered By: Michel Venegas on 09-16-2022 Bilirubin [Mass/Vol] 0.6 mg/dL 0.3-1.2 [facility] C reactive protein [Mass/vol ume] in Serum or PlasmaOrdered By: Michel Venegas on 09-16-2022 CRP [Mass/Vol] 1.5 mg/dL 0.0-1.0 [facility] Calcium [Mass/volume] in Ser um or PlasmaOrdered By: Michel Venegas on 09-16-2022 Calcium [Mass/Vol] 8.6 mg/dL 8.2-10.2 [facility] Cannabinoids [Presence] in U rine by Screen methodOrdered By: Michel Venegas on 09-16-2022 Cannabinoids Screen Ql (U) Positive Negative [facility] Comment on above: These are unconfirme d results and should not be used for legal purposes. Drug Cut-Off Concentration: AMPH 1000 ng/mL FOREIGN 200 ng/mL ADELE 200 ng/mL COCM 300 ng/mL OP 300 ng/mL PCP 25 ng/mL THC 20 ng/mL Carbon dioxide, total [Moles /volume] in Serum or PlasmaOrdered By: Michel Venegas on 09-16-2022 CO2 [Moles/Vol] 26.1 mmol/L 22.0-30.0 [facility] Chloride [Moles/volume] in S jayshree or PlasmaOrdered By: Michel Venegas on 09-16-2022 Chloride [Moles/Vol] 102 mmol/L 95-114 [facility] Creatinine and Glomerular fi ltration rate.predicted panel (S/P/Bld)Ordered By: Michel Venegas on 09-16-2022 Creatinine [Mass/Vol] 0.53 mg/dL 0.44-1.03 [facility] Eosinophils Auto (Bld) [#/Vo l]Ordered By: Michel Venegas on 09-16-2022 Eosinophils (Bld) [#/Vol] 0.1 10*3/uL 0.0-0.45 [facility] Eosinophils/100 WBC Auto (Bl d)Ordered By: Michel Venegas on 09-16-2022 Eosinophils/100 WBC (Bld) 0.8 % . [facility] Erythrocyte distribution wid th Auto (RBC) [Ratio]Ordered By: Michel Venegas on 09-16-2022 Erythrocyte distribution width (RBC) [Ratio] 15.4 % 11.9-15.3 [facility] Erythrocyte sedimentation ra te by Photometric methodOrdered By: Michel Venegas on 09-16-2022 ESR Photometric method (Bld) [Velocity] 13 mm/hr 0-19 [facility] Estimated glomerular filtrat ion rate (GFR) non- AmericanOrdered By: Michel Venegas on 09-16-2022 GFR/1.73 sq M.predicted among non-blacks MDRD (S/P/Bld) [Vol rate/Area] > 60 mL/Min [facility] Gliadin peptide+tissue trans glutaminase IgA+IgG Ab [Presence] in Serum by ImmunoassayOrdered By: Michel Venegas on 09-16-2022 Gliadin peptide+tissue transglutaminase IgA+IgG IA Ql (S) Negative Negative [facility] Globulin Calc (S) [Mass/Vol] Ordered By: Michel Venegas on 09-16-2022 Globulin (S) [Mass/Vol] 2.5 g/dL [facility] Glucose [Mass/volume] in Ser um or PlasmaOrdered By: Michel Venegas on 09-16-2022 Glucose [Mass/Vol] 100 mg/dL 70-100 [facility] Comment on above: ADA recommended refe rence rangeRandom Glucose Reference Range is dependent on time and content of last meal. Glucose of more than 200 mg/dL in a nonstressed, ambulatory subject supports the diagnosis of Diabetes Mellitus. Hematocrit Auto (Bld) [Volum e fraction]Ordered By: Michel Vneegas on 09-16-2022 Hematocrit (Bld) [Volume fraction] 40.4 % 34.0-46.4 [facility] Hemoglobin [Mass/volume] in BloodOrdered By: Michel Venegas on 09-16-2022 Hemoglobin (Bld) [Mass/Vol] 13.4 g/dL 11.8-15.4 [facility] - Drug toxicology Ordered By: Michel Venegas on 09-16-2022 Opiates Ql (U) Negative Negative [facility] Leukocytes [#/volume] correc rajani for nucleated erythrocytes in Blood by Automated counOrdered By: Michel Venegas on 09-16-2022 WBC corrected for nucl RBC Auto (Bld) [#/Vol] 7.4 10*3/uL 3.8-11.6 [facility] Lymphocytes Auto (Bld) [#/Vo l]Ordered By: Michel Venegas on 09-16-2022 Lymphocytes (Bld) [#/Vol] 1.6 10*3/uL 1.00-4.8 [facility] Lymphocytes/100 WBC Auto (Bl d)Ordered By: Michel Venegas on 09-16-2022 Lymphocytes/100 WBC (Bld) 21.7 % . [facility] MCH Auto (RBC) [Entitic mass ]Ordered By: Michel Venegas on 09-16-2022 MCH (RBC) [Entitic mass] 30.0 pg 24.7-34.3 [facility] MCHC Auto (RBC) [Mass/Vol]Or dered By: Michel Venegas on 09-16-2022 MCHC (RBC) [Mass/Vol] 33.0 g/dL 32.0-35.0 [facility] MCV Auto (RBC) [Entitic vol] Ordered By: Michel Venegas on 09-16-2022 MCV (RBC) [Entitic vol] 90.8 fL 80-100 [facility] Monocytes Auto (Bld) [#/Vol] Ordered By: Michel Venegas on 09-16-2022 Monocytes (Bld) [#/Vol] 0.3 10*3/uL 0.0-0.8 [facility] Monocytes/100 WBC Auto (Bld) Ordered By: Michel Venegas on 09-16-2022 Monocytes/100 WBC (Bld) 3.6 % . [facility] Neutrophil cytoplasmic Ab.pe rinuclear.atypical [Presence] in Serum by ImmunofluoresceOrdered By: Michel Venegas on 09-16-2022 Neutrophil cytoplasmic Ab.perinuclear.atypical IF Ql (S) Negative Negative [facility] Neutrophils Auto (Bld) [#/Vo l]Ordered By: Michel Venegas on 09-16-2022 Neutrophils (Bld) [#/Vol] 5.4 10*3/uL 1.8-7.7 [facility] Neutrophils/100 WBC Auto (Bl d)Ordered By: Michel Venegas on 09-16-2022 Neutrophils/100 WBC (Bld) 73.0 % . [facility] No Panel InformationOrdered By: Michel Venegas on 09-16-2022 Estimated GFR () > 60 mL/Min [facility] Comment on above: GFR estimated refere nce range: According to KDOQI guidelines, <60 ml/min/1.73m2 is sufficient to diagnose a patient with chronic kidney disease. Inflammatory Bowel Disease Interp See comment . [facility] Comment on above: Suggestive of Crohn' s disease. Subsequent testing with theCrtnn's Disease Prognostic Profile (568370) that includesantiglycan antibodies AMCA, ALCA, ACCA, and Marck may aidin the differentiation of clinical forms of CD andprognosis of disease progression.Performed at: [facility] [id number] Director: Saul Villanueva MD, Phone: [phone] Pharmacy Creatinine Clearance (Chem 110.33 [facility] Nucleated erythrocytes [Pres ence] in Blood by Automated countOrdered By: Michle Venegas on 09-16-2022 Nucleated RBC Auto Ql (Bld) 0.2 /100{WBC} 0-0.5 [facility] Phencyclidine Screen Ql (U)O rdered By: Michel Venegas on 09-16-2022 Phencyclidine Ql (U) Negative Negative [facility] Platelet mean volume Auto (B ld) [Entitic vol]Ordered By: Michel Venegas on 09-16-2022 Platelet mean volume (Bld) [Entitic vol] 7.1 fL 6.3-10.7 [facility] Platelets Auto (Bld) [#/Vol] Ordered By: Michel Venegas on 09-16-2022 Platelets (Bld) [#/Vol] 442 10*3/uL 150-450 [facility] Potassium [Moles/volume] in Serum or PlasmaOrdered By: Michel Venegas on 09-16-2022 Potassium [Moles/Vol] 3.9 mmol/L 3.5-5.1 [facility] Protein [Mass/volume] in Ser um or PlasmaOrdered By: Michel Venegas on 09-16-2022 Protein [Mass/Vol] 6.3 g/dL 6.1-7.9 [facility] RBC Auto (Bld) [#/Vol]Ordere d By: Michel Venegas on 09-16-2022 RBC (Bld) [#/Vol] 4.45 10*6/uL 3.60-5.00 [facility] Saccharomyces cerevisiae IgG serumOrdered By: Michel Venegas on 09-16-2022 Mauricio's yeast IgG Qn (S) 38.4 Units 0.0-24.9 [facility] Comment on above: Negative <20.0 Equiv ocal 20.1 - 24.9 Positive >or= 25.0 Serum or plasma alanine main otransferase measurement without P-5'-P (enzymatic activiOrdered By: Michel Venegas on 09-16-2022 ALT No additional P-5'-P [Catalytic activity/Vol] 16 U/L 10 [facility] Serum or plasma albumin/glob ulin mass ratioOrdered By: Michel Venegas on 09-16-2022 Albumin/Globulin [Mass ratio] 1.5 {ratio} [facility] Serum or plasma anion gap de terminationOrdered By: Michel Venegas on 09-16-2022 Anion gap [Moles/Vol] 9.8 mmol/L 6.0-15.0 [facility] Sodium [Moles/volume] in Ser um or PlasmaOrdered By: Michel Venegas on 09-16-2022 Sodium [Moles/Vol] 134 mmol/L 136-146 [facility] Urea nitrogen [Mass/volume] in Serum or PlasmaOrdered By: Michel Venegas on 09-16-2022 Urea nitrogen [Mass/Vol] 4 mg/dL 05-07 [facility] Urine cocaine detectionOrder ed By: Michel Venegas on 09-16-2022 Cocaine Ql (U) Negative Negative [facility] WBC Auto (Bld) [#/Vol]Ordere d By: Michel Venegas on 09-16-2022 WBC (Bld) [#/Vol] 7.4 10*3/uL 3.8-11.6 [facility] CNOVon 09-13-2022 CNOV Office Visit (SPNSMN ) -------- MACIE CLOUD ([id number]) 1975 F Date Time Provider Department 09/13/22 [...] Graham Sr, MD REFERRING PROVIDER: Lei Martinez [address] [facility] [id number] Consult requested for an opinion regarding the evaluation and treatment of low back pain. My final impression and recommendations will be communicated back to the requesting physician by way of the shared medical record or letter via US mail. SUBJECTIVE Mcaie Cloud is a 47 year old female [...] back, right leg and right toes Description: Aching;Burning;Radiating ;Shooting;Sore;Stabbing; Stiffness;Throbbing Burning;Aching;Sharp;Num bness;Stabbing/Not Incision;Sore;Pressure Ulcer/Injury Duration Amount of Time: 24 2 Duration Units: Hours Years Frequency: Continuous Continuous Intervention/Comfort measure: Relaxation;Cold;Heat;Pos itioning;Rocking/holding ;Spinal Cord Stimulator Medication;Emotional Support/Reassurance;Exer cise;Heat;Cold;Therapeut ic techniques-CPRP;Pillow support;Reposition Comments: It hurts all the [...] PROBLEM LIST Copd (Chronic Obstructive Pulmonary Disease) ([facility]) Current Smoker Neck Pain S/P Cervical Spinal Fusion Anxiety and Depression Iron Deficiency Anemia B12 Deficiency PAST MEDICAL HISTORY Diagnosis Date Anemia 10/[address] Cristiano Graham Anxiety and depression COPD (chronic obstructive pulmonary disease) ([facility]) Current smoker Neck pain S/P cervical spinal [...] 300 mg by mouth three times daily. lisinopril-hydroCHLOROth iazide (PRINZIDE,ZESTORETIC) 10-12.5 mg per tablet Take 1 [...] pain, permanently (more content not included)... Normal [facility] No Panel Informationon 09-13 [facility] XR SCOLIOSIS 2V PA STAND/LAT on 09-13-2022 [...] C6 as described. Mild dextroscoliosis lumbar spine. Transportation Department Head: MARTIN Transcribe Date/Time: Sep 13 2022 3:18P Dictated by : JUAN ANTONIO MONTES MD This examination was interpreted and the report reviewed and electronically signed by: JUAN ANTONIO MONTSE MD on Sep 13 2022 3:22PM EST [id number] Normal [facility] CBC AUTO DIFFon 08-04-2022 BASO # 0.0 103/ul Normal 0.0-0.1 [facility] Comment on above: Performed By: #### C BC #### [facility] [address] [place] [address] Dr. Kimmy Albert Basophils/100 WBC (Bld) 0.4 % Normal 0.2-2.0 [facility] Comment on above: Performed By: #### C BC #### [facility] [address] [place] [address] Dr. Kimmy Albert EO # 0.1 103/ul Normal 0.0-0.7 [facility] Comment on above: Performed By: #### C BC #### [facility] [address] [place] [address] Dr. Kimmy Albert Eosinophils/100 WBC (Bld) 1.3 % Normal 0.9-7.0 [facility] Comment on above: Performed By: #### C BC #### [facility] [address] [place] [address] Dr. Kimmy Albert Erythrocyte distribution width (RBC) [Ratio] 13.6 % Normal 11.0-15.0 [facility] Comment on above: Performed By: #### C BC #### [facility] [address] [place] [address] Dr. Kimmy Albert Hematocrit (Bld) [Volume fraction] 39.5 % Normal 36.0-48.0 [facility] Comment on above: Performed By: #### C BC #### [facility] [address] [place] [address] Dr. Kimmy Albert Hemoglobin (Bld) [Mass/Vol] 13.1 g/dL Normal 12.0-16.0 [facility] Comment on above: Performed By: #### C BC #### [facility] [address] [place] [address] Dr. Kimmy Albert IG # 0.01 10e3/ul Normal 0.00-0.03 [facility] Comment on above: Performed By: #### C BC #### [facility] [address] [place] [address] Dr. Kimmy Albert IG % 0.1 % Normal 0.0-0.5 [facility] Comment on above: Performed By: #### C BC #### [facility] [address] [place] [address] Dr. Kimmy Albert LYMPH # 3.1 103/ul Normal 1.2-3.8 [facility] Comment on above: Performed By: #### C BC #### [facility] [address] [place] [address] Dr. Kimmy Albert Lymphocytes/100 WBC (Bld) 43.7 % Normal 20.5-60.0 [facility] Comment on above: Performed By: #### C BC #### [facility] [address] [place] [address] Dr. Kimmy Albert MANUAL DIFF REQ NO Normal [facility] Comment on above: Performed By: #### C BC #### [facility] [address] [place] [address] Dr. Kimmy Albert MCH (RBC) [Entitic mass] 30.5 pg Normal 26.7-34.0 [facility] Comment on above: Performed By: #### C BC #### [facility] [address] [place] [address] Dr. Kimmy Albert MCHC (RBC) [Mass/Vol] 33.2 g/dL Normal 29.9-35.2 [facility] Comment on above: Performed By: #### C BC #### [facility] [address] [place] [address] Dr. Kimmy Albert MCV (RBC) [Entitic vol] 92.1 fL Normal 81.0-99.0 [facility] Comment on above: Performed By: #### C BC #### [facility] [address] [place] [address] Dr. Kimmy Albert MONO # 0.3 103/ul Normal 0.3-0.8 [facility] Comment on above: Performed By: #### C BC #### [facility] [address] [place] [address] Dr. Kimmy Albert Monocytes/100 WBC (Bld) 4.1 % Normal 1.7-12.0 [facility] Comment on above: Performed By: #### C BC #### [facility] [address] [place] [address] Dr. Kimmy Albert NEUT # 3.6 103/ul Normal 1.4-6.5 [facility] Comment on above: Performed By: #### C BC #### [facility] [address] [place] [address] Dr. Kimmy Albert Neutrophils/100 WBC (Bld) 50.4 % Normal 43.0-75.0 [facility] Comment on above: Performed By: #### C BC #### [facility] [address] [place] [address] Dr. Kimmy Albert Platelet mean volume (Bld) [Entitic vol] 10.0 fL Normal 9.5-13.5 [facility] Comment on above: Performed By: #### C BC #### [facility] [address] [place] [address] Dr. Kimmy Albert PLT 149 103/ul Critically low 150-450 [facility] Comment on above: Performed By: #### C BC #### [facility] [address] [place] [address] Dr. Kimmy Albert RBC 4.29 106/ul Normal 4.20-5.40 [facility] Comment on above: Performed By: #### C BC #### [facility] [address] [place] [address] Dr. Kimmy Albert WBC 7.1 103/ul Normal 4.0-11.0 [facility] Comment on above: Performed By: #### C BC #### [facility] [address] [place] [address] Dr. Kimmy Mcneill 08-04-2022 CNPN Telephone (SPNSMN) -------- MACIE CLOUD ([id number]) 1975 F Date Time Provider Department 08/04/22 LEI MARTINEZ SPNSMN During your visit today, we recorded [...] Date Reviewed: 01/23/2021 Reviewed by: Renee Fishman APRN.[facility] - Fully Assessed Reason for Visit: Patient Update [1234] Prescriptions as of 08/12/2022 - cyanocobalamin (VITAMIN B-12) 1,000 mcg/mL Inject 1 mL subcutaneously once every month. - amLODIPine-benazepril (LOTREL) 10-20 mg per capsule - buprenorphine-nalOXone SL (SUBOXONE) 8-2 mg subl Dissolve [...] mg by mouth three times daily. - lisinopril-hydroCHLOROth iazide (PRINZIDE,ZESTORETIC) 10-12.5 mg per tablet Take 1 [...] Status:Closed by CARLOS CARRERA on 08/12/22 Normal [facility] CRPon 08-04-2022 CRP [Mass/Vol] mg/L Normal <=1.0 [facility] Comment on above: Performed By: #### B MP, CRP #### [facility] [address] CHEST WO CONon [...] by: ALOK COELHO Date: 2022-08-04 06:43 Normal [facility] CT CSPINE WO CONon 2 CT CSPINE [...] LEE MARTINEZ Date: 2022-08-04 06:40 Normal [facility] CT LSPINE WO CONon 2 CT LSPINE WO CON EXAM: CT LSPINE WO C ON 08/04/2022 5:02 AM EST OH001 CLINICAL STATEMENT: [...] ALOK COELHO Date: 2022-08-04 06:47 Normal [facility] CT PELVIS WO CONon 2 CT PELVIS WO CON EXAMINATION: CT PELV IS WO CON HISTORY: Pain ; bilateral hip, [...] by: ERIC HE Date: 2022-08-04 07:19 Normal [facility] CT TSPINE WO CONon 2 CT TSPINE WO CON EXAM: CT TSPINE WO C ON 08/04/2022 5:02 AM EST OH001 CLINICAL STATEMENT: [...] by: ALOK COELHO Date: 2022-08-04 06:26 Normal [facility] PROF CHEM 8 (BAS METB)on Anion gap [Moles/Vol] 11.7 mmol/L Normal [facility] Comment on above: Performed By: #### B MP, CRP #### [facility] [address] [place] [address] Dr. Kimmy Albert Calcium [Mass/Vol] 8.9 mg/dL Normal 8.5-10.1 [facility] Comment on above: Performed By: #### B MP, CRP #### [facility] [address] [place] [address] Dr. Kimmy Albert Chloride [Moles/Vol] 99 mmol/L Normal 98-107 [facility] Comment on above: Performed By: #### B MP, CRP #### [facility] [address] [place] [address] Dr. Kimmy Albert CO2 [Moles/Vol] 28.9 mmol/L Normal 21.0-32.0 [facility] Comment on above: Performed By: #### B MP, CRP #### [facility] [address] [place] [address] Dr. Kimmy Albert Creatinine [Mass/Vol] 0.94 mg/dL Normal 0.55-1.02 [facility] Comment on above: Performed By: #### B MP, CRP #### [facility] [address] [place] [address] Dr. Kimmy Albert EGFR-AF TURKISH >60 Normal >=60 [facility] Comment on above: Performed By: #### B MP, CRP #### [facility] [address] [place] [address] Dr. Kimmy Albert EGFR-NON AF TURKISH >60 Normal >=60 [facility] Comment on above: Performed By: #### B MP, CRP #### [facility] [address] [place] [address] Dr. Kimmy Albert Glucose [Mass/Vol] 85 mg/dL Normal 74-106 [facility] Comment on above: Performed By: #### B MP, CRP #### [facility] [address] [place] [address] Dr. Kimmy Albert Potassium [Moles/Vol] 3.6 mmol/L Normal 3.5-5.1 [facility] Comment on above: Performed By: #### B MP, CRP #### [facility] [address] [place] [address] Dr. Kimmy Albert Sodium [Moles/Vol] 136 mmol/L Normal 136-145 [facility] Comment on above: Performed By: #### B MP, CRP #### [facility] [address] [address] [address] Kimmy Albert Urea nitrogen [Mass/Vol] 9.0 mg/dL Normal 7.0-18.0 [facility] Comment on above: Performed By: #### B MP, CRP #### [facility] [address] [address] [address] Kimmy Albert Urea nitrogen/Creatinine [Mass ratio] 9.6 mg/mg Normal [facility] Comment on above: Performed By: #### B MP, CRP #### [facility] [address] [place] [address] Dr. Kimmy Albert SED RATE [facility] 2021 SED RATE 14 mm/hr Normal <=20 [facility] Comment on above: Performed By: #### S EDR #### [facility] [address] [address] [address] Kimmy Mcneill 07-30-2022 GERMAINE Telephone (NIQ) -------- MACIE CLOUD ([id number]) 1975 F Date Time Provider Department 07/30/22 LEI MARTINEZ During your visit today, we recorded the following information about you: Nicolasa Wolff Emergency Room Clerk 07/30/2022 11:12 AM Signed pt had 10:30 VV today with provider. Pt has trouble connecting. Pt requesting a phone call. Call back: [phone] Doris Turner 08/02/2022 9:57 AM Signed Patient is calling in about info below Allergies As of Date: 07/30/2022 (No Known Allergies) Date Reviewed: 01/23/2021 Reviewed by: Renee Fishman APRN.[employer] - Fully Assessed Reason for Visit: Appointment [186] Prescriptions as of 08/12/2022 - cyanocobalamin (VITAMIN B-12) 1,000 mcg/mL Inject 1 mL subcutaneously once every month. - amLODIPine-benazepril (LOTREL) 10-20 mg per capsule - buprenorphine-nalOXone SL (SUBOXONE) 8-2 mg subl Dissolve [...] mg by mouth three times daily. - lisinopril-hydroCHLOROth iazide (PRINZIDE,ZESTORETIC) 10-12.5 mg per tablet Take 1 [...] Encounter Status:Closed by CARLOS CARRERA on 08/12/22 [facility] 07-21-2022 GERMAINE Telephone (NIQ) -------- MACIE CLOUD ([id number]) 1975 F Date Time Provider Department 07/21/22 [...] 07/30/2022 at 10:30 am. Ashly Menjivar RN [facility] Allergies As of Date: 07/21/2022 (No Known Allergies) Date Reviewed: 01/23/2021 Reviewed by: Renee Fishman APRN.[employer] - Fully Assessed Reason for Visit: Results [95] Prescriptions as of 07/28/2022 - cyanocobalamin (VITAMIN B-12) 1,000 mcg/mL Inject 1 mL subcutaneously once every month. - amLODIPine-benazepril (LOTREL) 10-20 mg per capsule - buprenorphine-nalOXone SL (SUBOXONE) 8-2 mg subl Dissolve [...] mg by mouth three times daily. - lisinopril-hydroCHLOROth iazide (PRINZIDE,ZESTORETIC) 10-12.5 mg per tablet Take 1 [...] Encounter Status:Closed by ASHLY MENJIVAR on 07/28/22 [facility] MACIE CLOUD ([id number]) 1975 F Date Time Provider Department 07/21/22 LEI MARTINEZ During your visit today, we recorded the following information about you: Doris Turner 07/21/2022 9:33 AM Signed Received the following record(s) via fax. -Electromyographic report Date 08/26/21 Record(s) scanned into 's chart. Doris Blanco RN 07/22/2022 11:13 AM Signed Noted. Forwarded to HARRY via other Encounter. Adolph Blanco RN Allergies As of Date: 07/21/2022 (No Known Allergies) Date Reviewed: 01/23/2021 Reviewed by: Renee Fishman APRN.[employer] - Fully Assessed Reason for Visit: Received Outside Medical Records [[id number]] Prescriptions as of 07/22/2022 - cyanocobalamin (VITAMIN B-12) 1,000 mcg/mL Inject 1 mL subcutaneously once every month. - amLODIPine-benazepril (LOTREL) 10-20 mg per capsule - buprenorphine-nalOXone SL (SUBOXONE) 8-2 mg subl Dissolve [...] mg by mouth three times daily. - lisinopril-hydroCHLOROth iazide (PRINZIDE,ZESTORETIC) 10-12.5 mg per tablet Take 1 [...] Encounter Status:Closed by ADOLPH BLANCO on 07/22/22 [facility] 07-20-2022 [place] Telephone (NIQ) -------- MACIE CLOUD ([id number]) 1975 F Date Time Provider Department 07/20/22 LEI MARTINEZ During your visit today, we [...] Date Reviewed: 01/23/2021 Reviewed by: Renee Fishman APRN.[employer] - Fully Assessed Reason for Visit: Results [95] Prescriptions as of 07/21/2022 - cyanocobalamin (VITAMIN B-12) 1,000 mcg/mL Inject 1 mL subcutaneously once every month. - amLODIPine-benazepril (LOTREL) 10-20 mg per capsule - buprenorphine-nalOXone SL (SUBOXONE) 8-2 mg subl Dissolve [...] mg by mouth three times daily. - lisinopril-hydroCHLOROth iazide (PRINZIDE,ZESTORETIC) 10-12.5 mg per tablet Take 1 [...] Status:Closed by ADOLPH BLANCO on 07/21/22 Normal [facility] Albumin [Mass/volume] in Ser um or PlasmaOrdered By: Cristiano Graham on 07-13-2022 Albumin [Mass/Vol] 3.8 g/dL 3.2-5.5 [facility] Basophils Auto (Bld) [#/Vol] Ordered By: Cristiano Graham on 07-13-2022 Basophils (Bld) [#/Vol] 0.0 10*3/uL 0.0-0.2 [facility] Basophils/100 WBC Auto (Bld) Ordered By: Cristiano Graham on 07-13-2022 Basophils/100 WBC (Bld) 0.4 % . [facility] Creatinine and Glomerular fi ltration rate.predicted panel (S/P/Bld)Ordered By: Cristiano Graham on 07-13-2022 Creatinine [Mass/Vol] 0.59 mg/dL 0.44-1.03 [facility] Eosinophils Auto (Bld) [#/Vo l]Ordered By: Cristiano Graham on 07-13-2022 Eosinophils (Bld) [#/Vol] 0.0 10*3/uL 0.0-0.45 [facility] Eosinophils/100 WBC Auto (Bl d)Ordered By: Cristiano Graham on 07-13-2022 Eosinophils/100 WBC (Bld) 0.5 % . [facility] Erythrocyte distribution wid th Auto (RBC) [Ratio]Ordered By: Cristiano Graham on 07-13-2022 Erythrocyte distribution width (RBC) [Ratio] 13.7 % 11.9-15.3 [facility] Estimated glomerular filtrat ion rate (GFR) non- AmericanOrdered By: Cristiano Graham on 07-13-2022 GFR/1.73 sq M.predicted among non-blacks MDRD (S/P/Bld) [Vol rate/Area] > 60 mL/Min [facility] Globulin Calc (S) [Mass/Vol] Ordered By: Cristiano Graham on 07-13-2022 Globulin (S) [Mass/Vol] 2.5 g/dL [facility] Hematocrit Auto (Bld) [Volum e fraction]Ordered By: Cristiano Graham on 07-13-2022 Hematocrit (Bld) [Volume fraction] 37.3 % 34.0-46.4 [facility] Hemoglobin [Mass/volume] in BloodOrdered By: Cristiano Graham on 07-13-2022 Hemoglobin (Bld) [Mass/Vol] 12.4 g/dL 11.8-15.4 [facility] Leukocytes [#/volume] correc rajani for nucleated erythrocytes in Blood by Automated counOrdered By: Cristiano Graham on 07-13-2022 WBC corrected for nucl RBC Auto (Bld) [#/Vol] 9.3 10*3/uL 3.8-11.6 [facility] Lymphocytes Auto (Bld) [#/Vo l]Ordered By: Cristiano Graham on 07-13-2022 Lymphocytes (Bld) [#/Vol] 3.3 10*3/uL 1.00-4.8 [facility] Lymphocytes/100 WBC Auto (Bl d)Ordered By: Cristiano Graham on 07-13-2022 Lymphocytes/100 WBC (Bld) 35.7 % . [facility] MCH Auto (RBC) [Entitic mass ]Ordered By: Cristiano Graham on 07-13-2022 MCH (RBC) [Entitic mass] 30.9 pg 24.7-34.3 [facility] MCHC Auto (RBC) [Mass/Vol]Or dered By: Cristiano Graham on 07-13-2022 MCHC (RBC) [Mass/Vol] 33.2 g/dL 32.0-35.0 [facility] MCV Auto (RBC) [Entitic vol] Ordered By: Crsitiano Graham on 07-13-2022 MCV (RBC) [Entitic vol] 92.9 fL 80-100 [facility] Monocytes Auto (Bld) [#/Vol] Ordered By: Cristiano Graham on 07-13-2022 Monocytes (Bld) [#/Vol] 0.6 10*3/uL 0.0-0.8 [facility] Monocytes/100 WBC Auto (Bld) Ordered By: Cristiano Graham on 07-13-2022 Monocytes/100 WBC (Bld) 6.3 % . [facility] Neutrophils Auto (Bld) [#/Vo l]Ordered By: Cristiano Graham on 07-13-2022 Neutrophils (Bld) [#/Vol] 5.3 10*3/uL 1.8-7.7 [facility] Neutrophils/100 WBC Auto (Bl d)Ordered By: Cristiano Graham on 07-13-2022 Neutrophils/100 WBC (Bld) 57.1 % . [facility] No Panel InformationOrdered By: Cristiano Graham on 07-13-2022 Estimated GFR () > 60 mL/Min [facility] Comment on above: GFR estimated refere nce range: According to KDOQI guidelines, <60 ml/min/1.73m2 is sufficient to diagnose a patient with chronic kidney disease. Pharmacy Creatinine Clearance (Chem N/A [facility] Nucleated erythrocytes [Pres ence] in Blood by Automated countOrdered By: Cristiano Graham on 07-13-2022 Nucleated RBC Auto Ql (Bld) 0.0 /100{WBC} 0-0.5 [facility] Platelet mean volume Auto (B ld) [Entitic vol]Ordered By: Cristiano Graham on 07-13-2022 Platelet mean volume (Bld) [Entitic vol] 7.7 fL 6.3-10.7 [facility] Platelets Auto (Bld) [#/Vol] Ordered By: Cristiano Graham on 07-13-2022 Platelets (Bld) [#/Vol] 379 10*3/uL 150-450 [facility] Protein [Mass/volume] in Ser um or PlasmaOrdered By: Cristiano Graham on 07-13-2022 Protein [Mass/Vol] 6.3 g/dL 6.1-7.9 [facility] RBC Auto (Bld) [#/Vol]Ordere d By: Cristiano Graham on 07-13-2022 RBC (Bld) [#/Vol] 4.01 10*6/uL 3.60-5.00 [facility] Serum or plasma alanine main otransferase measurement without P-5'-P (enzymatic activiOrdered By: Cristiano Graham on 07-13-2022 ALT No additional P-5'-P [Catalytic activity/Vol] 19 U/L 1060 [facility] Serum or plasma albumin/glob ulin mass ratioOrdered By: Cristiano Graham on 07-13-2022 Albumin/Globulin [Mass ratio] 1.5 {ratio} [facility] Serum or plasma alkaline tre sphatase measurement (enzymatic activity/volume)Ordered By: Cristiano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 above: Performed By: #### C BCND #### [facility] [address] [place] [address] RBC (Bld) [#/Vol] 4.97 10*6/uL Normal 4.20-5.40 [facility] Comment on above: Performed By: #### C BCND #### [facility] [address] [place] [address] WBC (Bld) [#/Vol] 11.6 10*3/uL Critically high 4.8-10.8 [facility] Comment on above: Performed By: #### C BCND #### [facility] [address] [place] [address] COVID-19, NAAon 12-22-2020 Source Swab Anterior nares Normal [facility] Comment on above: Performed By: #### I RCOV #### [facility] [address] [place] [address] Partial Thromboplastin Timeo n 12-22-2020 aPTT Coag (Bld) [Time] 28.5 s Normal 24.4-36.8 [facility] Comment on above: Result Comment: Effe ctive 06/18/2020: Heparin Therapeutic Range: 64.0 ? 98.0 seconds. Performed By: #### P TT #### [facility] [address] [place] [address] Prothrombin Timeon INR Coag (PPP) [Relative time] 0.9 {INR} Normal [facility] Comment on above: Performed By: #### B MP #### [facility] [address] [place] [address] PT Coag (PPP) [Time] 12.7 s Normal 12.3-14.9 [facility] Comment on above: Performed By: #### B MP #### [facility] [address] [place] [address] Type and Screen Capture 3 sc rn cellon 12-22-2020 Type and Screen Capture 3 scrn cell PATIENT: PEDRO LUIS Thacker LOC: [facility] BILL# : [id number] : 1975 SEX: F ORDERED BY: CLAUDETTE LUKE Cespedes ORDERED : 12/22/2020 11:03 COLLECTED: 12/22/2020 11:04 ORDER : [id number] RECEIVED : 12/22/2020 15:08 ------ TEST NAME RESULT UNITS RANGES ABN FL ST ABORH Capture O POS F Antibody 3 Cell Scrn Captu NEG F ----- Normal [facility] Comment on above: Performed By: #### B MP #### [facility] [address] [place] [address] COVID-19, NAAon 10-29-2020 SARS-CoV-2 (COVID-19) RNA GERONIMO+probe Ql (Unsp spec) Not detected Normal Not Detect [facility] Comment on above: Result Comment: This nucleic acid amplification test was developed and its performance characteristics determined by [employer]. Nucleic acid amplification tests include RT-PCR and [...] detected) result in this assay. Performed at: [facility] [address] [facility] [place] [id number] [employer]: Mars Kinney MD, Phone: [phone] Performed By: #### I RCOV #### [facility] [address] [place] [address] Basic Metabolic Panelon 10-13 Anion gap [Moles/Vol] 13 mmol/L Normal 9-15 [facility] Comment on above: Performed By: #### B MP #### [facility] [address] [place] [address] Calcium [Mass/Vol] 9.2 mg/dL Normal 8.5-9.9 [facility] Comment on above: Performed By: #### B MP #### [facility] [address] [place] [address] Chloride [Moles/Vol] 100 mmol/L Normal 95-107 [facility] Comment on above: Performed By: #### B MP #### [facility] [address] [place] [address] CO2 [Moles/Vol] 25 mmol/L Normal 20-31 [facility] Comment on above: Performed By: #### B MP #### [facility] [address] [place] [address] Creatinine [Mass/Vol] 0.58 mg/dL Normal 0.50-0.90 [facility] Comment on above: Performed By: #### B MP #### [facility] [address] [place] [address] GFR >60.0 Normal >60 [facility] Comment on above: Result Comment: >60 mL/min/1.73m2 EGFR, calc. for ages 18 and older using the MDRD formula (not corrected for weight), is valid for stable renal function. Performed By: #### B MP #### [facility] [address] [place] [address] GFR/1.73 sq M.predicted among blacks MDRD (S/P/Bld) [Vol rate/Area] mL/min/{1.73_m2} Normal >60 [facility] Comment on above: Result Comment: >60 mL/min/1.73m2 EGFR, calc. for ages 18 and older using the MDRD formula (not corrected for weight), is valid for stable renal function. Performed By: #### B MP #### [facility] [address] [place] [address] Glucose [Mass/Vol] 100 mg/dL Critically high 70-99 [facility] Comment on above: Performed By: #### B MP #### [facility] [address] [place] [address] Potassium [Moles/Vol] 4.7 mmol/L Normal 3.4-4.9 [facility] Comment on above: Performed By: #### B MP #### [facility] [address] [place] [address] Sodium [Moles/Vol] 138 mmol/L Normal 135-144 [facility] Comment on above: Performed By: #### B MP #### [facility] [address] [place] [address] Urea nitrogen [Mass/Vol] 10 mg/dL Normal 6-20 [facility] Comment on above: Performed By: #### B MP #### [facility] [address] [place] [address] CBC With Platelet No Differe ntialon 10-27-2020 Erythrocyte distribution width (RBC) [Ratio] 21.3 % Critically high 11.5-14.5 [facility] Comment on above: Performed By: #### C BCND #### [facility] [address] [place] [address] Hematocrit (Bld) [Volume fraction] 31.1 % Low 37.0-47.0 [facility] Comment on above: Performed By: #### C BCND #### [facility] [address] [place] [address] Hemoglobin (Bld) [Mass/Vol] 9.7 g/dL Low 12.0-16.0 [facility] Comment on above: Performed By: #### C BCND #### [facility] [address] [place] [address] MCH (RBC) [Entitic mass] 23.0 pg Low 27.0-31.3 [facility] Comment on above: Performed By: #### C BCND #### [facility] [address] [place] [address] MCHC 31.2 % Low 33.0-37.0 [facility] Comment on above: Performed By: #### C BCND #### [facility] [address] [place] [address] MCV (RBC) [Entitic vol] 73.7 fL Low 82.0-100.0 [facility] Comment on above: Performed By: #### C BCND #### [facility] [address] [place] [address] Platelets (Bld) [#/Vol] 367 10*3/uL Normal 130-400 [facility] Comment on above: Performed By: #### C BCND #### [facility] [address] [place] [address] RBC (Bld) [#/Vol] 4.22 10*6/uL Normal 4.20-5.40 [facility] Comment on above: Performed By: #### C BCND #### [facility] [address] [place] [address] WBC (Bld) [#/Vol] 10.0 10*3/uL Normal 4.8-10.8 [facility] Comment on above: Performed By: #### C BCND #### [facility] [address] [place] [address] COVID-19, NAAon 10-27-2020 Source Swab Anterior nares Normal [facility] Comment on above: Performed By: #### I RCOV #### [facility] [address] [place] [address] Partial Thromboplastin Timeo n 10-27-2020 aPTT Coag (Bld) [Time] 27.9 s Normal 24.4-36.8 [facility] Comment on above: Result Comment: Effe ctive 06/18/2020: Heparin Therapeutic Range: 64.0 ? 98.0 seconds. Performed By: #### P TT #### [facility] [address] [place] [address] Prothrombin Timeon INR Coag (PPP) [Relative time] 0.9 {INR} Normal [facility] Comment on above: Performed By: #### P T #### [facility] [address] [place] [address] PT Coag (PPP) [Time] 12.4 s Normal 12.3-14.9 [facility] Comment on above: Performed By: #### P T #### [facility] [address] [place] [address] Type and Screen Capture 3 sc rn cellon 10-27-2020 Type and Screen Capture 3 scrn cell PATIENT: PEDRO LUIS Thacker LOC: [id number],, BILL# : [id number] : 1975 SEX: F ORDERED BY: CLAUDETTE Cespedes ORDERED : 10/27/2020 10:58 COLLECTED: 10/27/2020 10:55 ORDER : [id number] RECEIVED : 10/27/2020 14:31 ------ TEST NAME RESULT UNITS RANGES ABN FL ST ABORH Capture O POS F Antibody 3 Cell Scrn u NEG F ----- Normal [facility] Comment on above: Performed By: #### T S3C #### [facility] [address] [place] [id number] Vital Signs Date Time Vital Sign Value Performing Clinician Facility 09-27-2024 15:38-0500 Body height 171.5 cm Lora Power MD Work Phone: [facility] 09-27-2024 15:38-0500 Body mass index (BMI) [Ratio] 18.83 kg/m2 Lora Power MD Work Phone: [facility] 09-27-2024 15:38-0500 Body weight 55.34 kg Lora Power MD Work Phone: [facility] 09-27-2024 15:38-0500 Diastolic blood pressure 104 mm[Hg] Lora Power MD Work Phone: [facility] 09-27-2024 15:38-0500 Systolic blood pressure 182 mm[Hg] Lora Power MD Work Phone: [facility] 09-13-2024 15:36-0500 Body height 170.18 cm PHYSICIAN NO [facility] 09-13-2024 15:36-0500 Body temperature 97.8 [degF] PHYSICIAN NO [facility] 09-13-2024 15:36-0500 Body weight 56 kg PHYSICIAN NO [facility] 09-13-2024 15:36-0500 Diastolic blood pressure 82 mm[Hg] PHYSICIAN NO [facility] 09-13-2024 15:36-0500 Heart rate 84 /min PHYSICIAN NO [facility] 09-13-2024 15:36-0500 Respiratory rate 18 /min PHYSICIAN NO [facility] 09-13-2024 15:36-0500 SaO2% (BldA) [Mass fraction] 96 % PHYSICIAN NO [facility] 09-13-2024 15:36-0500 Systolic blood pressure 194 mm[Hg] PHYSICIAN NO [facility] 05-22-2024 10:28-0400 Body mass index (BMI) [Ratio] 18.83 kg/m2 Rio Ramirez FEATHER BONER Work Phone: [facility] 05-22-2024 10:28-0400 Body temperature 96.6 [degF] Rio Ramirez FEATHER BONER Work Phone: [facility] 05-22-2024 10:28-0400 Body weight 55.34 kg Rio Ramirez FEATHER BONER Work Phone: [facility] 05-22-2024 10:28-0400 Diastolic blood pressure 76 mm[Hg] Rio Ramirez FEATHER BONER Work Phone: [facility] 05-22-2024 10:28-0400 Heart rate 79 /min Rio Ramirez FEATHER BONER Work Phone: [facility] 05-22-2024 10:28-0400 SaO2% (BldA) [Mass fraction] 96 % Rio Ramirez FEATHER BONER Work Phone: [facility] 05-22-2024 10:28-0400 Systolic blood pressure 122 mm[Hg] Rio Ramirez FEATHER BONER Work Phone: [facility] 10-12-2023 11:08-0500 Diastolic blood pressure 63 mm[Hg] Prem Ding MD Work Phone: [facility] 10-12-2023 11:08-0500 Heart rate 102 /min Prem Ding MD Work Phone: [facility] 10-12-2023 11:08-0500 Respiratory rate 16 /min Prem Ding MD Work Phone: [facility] 10-12-2023 11:08-0500 SaO2% (BldA) [Mass fraction] 96 % Prem Ding MD Work Phone: [facility] 10-12-2023 11:08-0500 Systolic blood pressure 114 mm[Hg] Prem Ding MD Work Phone: [facility] 10-12-2023 06:05-0500 Body temperature 97.3 [degF] Prem Ding MD Work Phone: [facility] 10-11-2023 09:41-0500 Body mass index (BMI) [Ratio] 18.56 kg/m2 Prem Ding MD Work Phone: [facility] 10-11-2023 09:41-0500 Body weight 53.75 kg Prem Ding MD Work Phone: [facility] 10-11-2023 09:34-0500 Body height 170.2 cm Prem Ding MD Work Phone: [facility] 09-27-2023 09:10-0500 Diastolic blood pressure 95 mm[Hg] PHYSICIAN NO [facility] 09-27-2023 09:10-0500 Heart rate 85 /min PHYSICIAN NO [facility] 09-27-2023 09:10-0500 Respiratory rate 20 /min PHYSICIAN NO [facility] 09-27-2023 09:10-0500 SaO2% (BldA) [Mass fraction] 98 % PHYSICIAN NO [facility] 09-27-2023 09:10-0500 Systolic blood pressure 180 mm[Hg] PHYSICIAN NO [facility] 09-27-2023 08:30-0500 Inhaled oxygen flow rate 2 L/min PHYSICIAN NO [facility] 09-27-2023 04:28-0500 Body temperature 97.4 [degF] PHYSICIAN NO [facility] 09-26-2023 13:01-0500 Body height 170.18 cm PHYSICIAN NO [facility] 09-26-2023 13:01-0500 Body weight 55.33 kg PHYSICIAN NO [facility] 06-17-2023 20:40-0400 Body height 170.18 cm DO Cristiano House Work Phone: [facility] 06-17-2023 20:40-0400 Body temperature 98 [degF] DO Cristiano House Work Phone: [facility] 06-17-2023 20:40-0400 Body weight 55.33 kg DO Cristiano House Work Phone: [facility] 06-17-2023 20:40-0400 Diastolic blood pressure 78 mm[Hg] DO Cristiano House Work Phone: [facility] 06-17-2023 20:40-0400 Heart rate 102 /min DO Cristiano House Work Phone: [facility] 06-17-2023 20:40-0400 Respiratory rate 18 /min DO Cristiano House Work Phone: [facility] 06-17-2023 20:40-0400 SaO2% (BldA) [Mass fraction] 96 % DO Cristiano House Work Phone: [facility] 06-17-2023 20:40-0400 Systolic blood pressure 108 mm[Hg] DO Cristiano House Work Phone: [facility] 04-12-2023 13:27-0400 Diastolic blood pressure 87 mm[Hg] Star Whit [facility] 04-12-2023 13:27-0400 Heart rate 74 /min Star Whit [facility] 04-12-2023 13:27-0400 Respiratory rate 14 /min Star Whit [facility] 04-12-2023 13:27-0400 Systolic blood pressure 149 mm[Hg] Star Sherman [facility] 03-09-2023 13:00-0400 Body height 170.18 cm Sobeida Blades Other [facility] Other 03-09-2023 13:00-0400 Body mass index (BMI) [Ratio] 18.64 kg/m2 Sobeida Blades Other [facility] Other 03-09-2023 13:00-0400 Body weight 53.98 kg Sobeida Blades Other [facility] Other 03-09-2023 13:00-0400 Diastolic blood pressure 62 mm[Hg] Sobeida Blades Other [facility] Other 03-09-2023 13:00-0400 Systolic blood pressure 118 mm[Hg] Sobeida Blades Other [facility] Other 10-28-2022 18:20-0400 Diastolic blood pressure 96 mm[Hg] DO [facility] Work Phone: [facility] 10-28-2022 18:20-0400 Heart rate 91 /min DO [facility] [employer] Work Phone: [facility] 10-28-2022 18:20-0400 Respiratory rate 18 /min DO [facility] Work Phone: [facility] 10-28-2022 18:20-0400 SaO2% (BldA) [Mass fraction] 95 % DO Cristiano House Work Phone: [facility] 10-28-2022 18:20-0400 Systolic blood pressure 167 mm[Hg] DO Cristiano House Work Phone: [facility] 10-28-2022 14:36-0400 Body temperature 98.1 [degF] DO Cristiano House Work Phone: [facility] 10-28-2022 14:35-0400 Body height 170.18 cm DO Cristiano House Work Phone: [facility] 10-28-2022 14:35-0400 Body weight 53.07 kg DO Cristiano House Work Phone: [facility] 09-16-2022 11:49-0500 Diastolic blood pressure 94 mm[Hg] DO Cristiano House Work Phone: [facility] 09-16-2022 11:49-0500 Heart rate 68 /min DO Cristiano House Work Phone: [facility] 09-16-2022 11:49-0500 Respiratory rate 16 /min DO Cristiano House Work Phone: [facility] 09-16-2022 11:49-0500 SaO2% (BldA) [Mass fraction] 99 % DO Cristiano Graham Work Phone: [facility] 09-16-2022 11:49-0500 Systolic blood pressure 168 mm[Hg] DO Cristiano House Work Phone: [facility] 09-16-2022 09:24-0500 Body height 170.18 cm DO Cristiano House Work Phone: [facility] 09-16-2022 09:24-0500 Body temperature 97.7 [degF] DO Cristiano House Work Phone: [facility] 09-16-2022 09:24-0500 Body weight 54.43 kg DO Cristiano House Work Phone: [facility] 09-13-2022 13:18-0500 Body height 170.2 cm Too Hughes MD Work Phone: [facility] 09-13-2022 13:18-0500 Body weight 57.15 kg Too Hughes MD Work Phone: [facility] 09-13-2022 13:18-0500 Diastolic blood pressure 74 mm[Hg] Too Hughes MD Work Phone: [facility] 09-13-2022 13:18-0500 Heart rate 78 /min Too Hughes MD Work Phone: [facility] 09-13-2022 13:18-0500 Respiratory rate 16 /min Too Hughes MD Work Phone: [facility] 09-13-2022 13:18-0500 SaO2% (BldA) [Mass fraction] 99 % Too Hughes MD Work Phone: [facility] 09-13-2022 13:18-0500 Systolic blood pressure 145 mm[Hg] Too Hughes MD Work Phone: [facility] 11-18-2021 13:45-0400 Body height 170.18 cm Jak Steele Other [facility] Other 11-18-2021 13:45-0400 Body mass index (BMI) [Ratio] 20.36 kg/m2 Jak Steele Other [facility] Other 11-18-2021 13:45-0400 Body temperature 96.6 [degF] Jak Steele Other [facility] Other 11-18-2021 13:45-0400 Body weight 58.97 kg Jak Steele Other [facility] Other 11-18-2021 13:45-0400 Diastolic blood pressure 62 mm[Hg] Jak Steele Other [facility] Other 11-18-2021 13:45-0400 SaO2% (BldA) [Mass fraction] 99 % Jak Steele Other [facility] Other 11-18-2021 13:45-0400 Systolic blood pressure 102 mm[Hg] Jak Steele Other [facility] Other 01-01-2021 08:03-0400 Body temperature 98.4 [degF] Bib Alvarez MD Work Phone: [facility] [employer] Work Phone: 01-01-2021 08:03-0400 Diastolic blood pressure 56 mm[Hg] Bib Alvarez MD Work Phone: [facility] [employer] Work Phone: 01-01-2021 08:03-0400 Heart rate 106 /min Bib Alvarez MD Work Phone: [facility] [employer] Work Phone: 01-01-2021 08:03-0400 Respiratory rate 20 /min Bib Alvarez MD Work Phone: [facility] [employer] Work Phone: 01-01-2021 08:03-0400 SaO2% (BldA) [Mass fraction] 95 % Bib Alvarez MD Work Phone: [facility] [employer] Work Phone: 01-01-2021 08:03-0400 Systolic blood pressure 110 mm[Hg] Bib Alvarez MD Work Phone: [facility] [employer] Work Phone: 12-30-2020 07:33-0400 Body height 170.2 cm Bib Alvarez MD Work Phone: [facility] [employer] Work Phone: 12-30-2020 07:33-0400 Body mass index (BMI) [Ratio] 20.36 kg/m2 Bib Alvarez MD Work Phone: [facility] Work Phone: 12-30-2020 07:33-0400 Body weight 58.97 kg Bib Alvarez MD Work Phone: [facility] [employer] Work Phone: Encounters Encounter Date Encounter Type Care Provider Facility Start: 12-29-2024 End: 12-29-2024 ambulatory Lora Power Facility:[facility] Start: 12-25-2024 End: 12-25-2024 Telephone encounter Shana Rojassherlyn Jacob Other Phone: [facility] Start: 12-12-2024 End: 12-12-2024 Refill Lindsey Jarrett FEATHER BONER Work Phone: [facility] Comment on above: Claustrophobia (CMS/ HCC) Start: 11-26-2024 End: 11-26-2024 ambulatory LORA POWER Not Available Start: 10-24-2024 End: 10-24-2024 ambulatory CHUKA ONYENEKE Not Available Start: 10-17-2024 End: 10-17-2024 ambulatory CHUKA ONYENEKE Not Available Start: 09-27-2024 End: 09-27-2024 Office outpatient new 45 minutes Lora Power MD Work Phone: [facility] Comment on above: Lumbar radiculopathy (Primary Dx); PHN (postherpetic neuralgia) (CMS/HCC); Status post lumbar spinal fusion; Cervical myelopathy (CMS/HCC) Start: 09-27-2024 End: 09-27-2024 ambulatory LORA POWER Not Available Start: 09-14-2024 End: 09-14-2024 ambulatory CHUKA ONYENEKE Not Available Start: 09-13-2024 End: 09-13-2024 Emergency department patient visit PHYSICIAN [facility] Work Phone: Start: 05-22-2024 End: 05-22-2024 ambulatory RIO RAMIREZ Not Available Start: 05-22-2024 End: 05-22-2024 Office outpatient visit 25 minutes Rio Ramirez FEATHER BONER Work Phone: [facility] Comment on above: Chronic cough (Prima ry Dx); Rib pain on left side; Inspiratory pain; Closed fracture of multiple ribs of left side, initial encounter Start: 05-07-2024 End: 05-09-2024 ambulatory CRISTIANO GRAHAM [facility] Start: 05-07-2024 End: 05-09-2024 Subsequent hospital visit by physician Mady ANAND Work Phone: [facility] Comment on above: Lumbar radiculopathy Start: 04-02-2024 End: 04-02-2024 Clinical Support Ciera Dahm [facility] Comment on above: Lumbar radiculopathy (Primary Dx); Status post lumbar spinal fusion Start: 04-02-2024 End: 04-02-2024 Bamboo flowsheet Ciera Dahm [facility]IST[facility] Start: 04-02-2024 End: 04-02-2024 Bamboo flowsheet Ciera Dahm MEDICAL [facility]IST[facility]MATOLOG[facility] Start: 03-26-2024 End: 03-26-2024 ambulatory MADY COOK Not Available Start: 03-21-2024 End: 03-21-2024 ambulatory CIERA DAFRANK Not Available Start: 03-20-2024 End: 03-20-2024 ambulatory ZORAIDA Alfaro BECKMAN Not Available Start: 10-11-2023 End: 10-12-2023 Subsequent hospital visit by physician Prem Ding MD Work Phone: [facility] Start: 09-27-2023 End: 09-29-2023 Evaluation and management of inpatient CRISTIANO GRAHAM [facility] Start: 09-26-2023 End: 09-27-2023 Emergency department patient visit PHYSICIAN ABDIRASHID RIVAS [facility] Work Phone: Start: 08-30-2023 End: 08-31-2023 ambulatory [facility] Start: 08-24-2023 End: 08-29-2023 ambulatory [facility] Start: 06-23-2023 End: 06-23-2023 ambulatory DO Cristiano Graham Work Phone: [facility] Work Phone: Start: 06-23-2023 End: 06-23-2023 Patient encounter procedure DO Cristiano House Work Phone: [facility] [address] Work Phone: Start: 06-20-2023 End: 06-20-2023 ambulatory Sobeida Blades Other [facility] Other Start: 06-20-2023 Telephone encounter Sobeida Blades [facility] Start: 06-17-2023 End: 06-17-2023 Emergency department patient visit DO Cristiano House Work Phone: [facility] Work Phone: Start: 05-18-2023 End: 05-18-2023 ambulatory Sobeida Blades Other [facility] Other Start: 05-18-2023 Telephone encounter Sobeida Blades F [facility] Start: 05-17-2023 End: 05-17-2023 ambulatory Sobeida Blades Other [facility] Other Start: 05-17-2023 Telephone encounter Sobeida Blades F [facility] Start: 04-12-2023 End: 04-13-2023 ambulatory SOBEIDA A BLADES Facility:[facility] Start: 04-12-2023 End: 04-12-2023 Pain Management Star Sherman [facility] Start: 04-12-2023 End: 04-12-2023 ambulatory DO Cristiano House Work Phone: [facility] Work Phone: Start: 04-12-2023 End: 04-12-2023 Patient encounter procedure DO Cristiano House Work Phone: [facility] [place] Work Phone: Start: 03-09-2023 End: 03-09-2023 ambulatory Sobeida Blades Other [facility] Other Start: 03-09-2023 Office outpatient vi sit 15 minutes Sobeida Whitney [facility] Start: 02-10-2023 ambulatory Darlyn Kaufman RN [facility] [place] Comment on above: Blood Management Start: 12-17-2022 ambulatory Too lagos MD Work Phone: [facility] Comment on above: Nicotine Testing Start: 12-17-2022 E-mail encounter fro m caregiver Too Hughes MD Work Phone: [facility] Start: 11-20-2022 End: 11-20-2022 ambulatory TOO HUGHES Facility:[facility] Start: 11-20-2022 End: 11-20-2022 ambulatory Too Hughes MD Work Phone: [facility] Comment on above: Cervical myelopathy (HCC) (Primary Dx); Cervical radiculopathy Start: 11-20-2022 End: 11-20-2022 Telemedicine consultation with patient Too Hughes MD Work Phone: [facility] Start: 11-07-2022 ambulatory Too lagos MD Work Phone: [facility] Comment on above: My back and neck Start: 10-28-2022 End: 10-28-2022 Emergency department patient visit DO Cristiano Graham Work Phone: [facility]Emergency Room Work Phone: Start: 10-07-2022 End: 10-08-2022 ambulatory CRISTIANO GRAHAM Facility:[facility] Start: 10-07-2022 End: 10-07-2022 Emergency department patient visit KIKA Alex Facility:[facility] Start: 10-07-2022 Telephone encounter Too Hughes MD Work Phone: [facility] Comment on above: Surgery recsheduling ; Care Coordination Start: 09-28-2022 ambulatory Too lagos MD Work Phone: [facility] Comment on above: Pain Start: 09-27-2022 End: 09-27-[address] DARCIE CADET Facility:[facility] Start: 09-17-2022 Telephone encounter Too Hughes MD Work Phone: [facility] Comment on above: Schedule Surgery; Ca re Coordination Start: 09-16-2022 End: 09-16-2022 Admission to same day surgery center DO Cristiano Graham Work Phone: [facility] Work Phone: Start: 09-16-2022 End: 09-16-2022 ambulatory DO Cristiano Graham Work Phone: [facility] Work Phone: Start: 09-13-2022 End: 09-13-2022 ambulatory CRISTIANO GRAHAM SR Facility:[facility] Start: 09-13-2022 End: 09-14-2022 ambulatory TOO HUGHES Facility:[facility] Start: 09-13-2022 End: 09-13-2022 Subsequent hospital visit by physician [facility] Comment on above: Spinal stenosis of c ervical region [M48.02] Start: 09-13-2022 End: 09-13-2022 Patient encounter procedure Too Hughes MD Work Phone: [facility] Comment on above: Spinal stenosis of c ervical region (Primary Dx); Pseudarthrosis following spinal fusion; Lumbar radiculopathy; 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 Start: 08-04-2022 End: 08-04-2022 ambulatory Lei Martinez PA-C Work Phone: [facility] Comment on above: My virtual visit Start: 08-04-2022 Telephone encounter Lei tam PA-C Work Phone: [facility] Comment on above: Patient Update Start: 07-30-2022 Telephone encounter Joanie loera APRN.CNP Work Phone: Neurology Comment on above: Opened In Error Appointment Start: 07-21-2022 ambulatory Lei blakely PA-C Work Phone: [facility] Comment on above: My test results Start: 07-21-2022 Telephone encounter Lei tam PA-C Work Phone: Neurology Comment on above: Received Outside Med ical Records Results Start: 07-13-2022 End: 07-13-2022 ambulatory DO Cristiano House Work Phone: [facility] Work Phone: Start: 07-13-2022 End: 07-13-2022 Patient encounter procedure DO Cristiano House Work Phone: [facility] [place] Start: 06-25-2022 End: 06-26-[address] ERIC HE Facility: Start: 06-21-2022 End: 06-21-2022 ambulatory Michel Rome Other [facility] Other Start: 06-21-2022 Telephone encounter Michel serrano [facility] Start: 06-16-2022 End: 06-16-2022 ambulatory Michel Rome Other [facility] Other Start: 06-16-2022 Telephone encounter Michel serrano [facility] Start: 05-10-2022 End: 05-10-2022 ambulatory DO Cristiano House Work Phone: [facility] Work Phone: Start: 05-10-2022 End: 05-10-2022 Discharged Recurring DO Cristiano House Work Phone: [facility] Therapy [address] Start: 03-05-2022 End: 03-05-2022 Patient encounter procedure DO Cristiano House Work Phone: [facility] [place] Start: 01-01-2022 End: 01-01-2022 ambulatory Lei Martinez PA-C Work Phone: [facility] Comment on above: Neck pain, chronic ( Primary Dx); Chronic bilateral low back pain with right-sided sciatica Start: 01-01-2022 End: 01-01-2022 Telemedicine consultation with patient Lei Martinez ZANDER Work Phone: [facility] Start: 11-26-2021 End: 11-26-2021 ambulatory Vick Maxwell Other [facility] Other Start: 11-26-2021 Office outpatient vi sit 25 minutes Vick Maxwell [facility] [place] Start: 11-18-2021 End: 11-18-2021 ambulatory Jak Langnicole Other [facility] Other Start: 11-18-2021 Office outpatient vi sit 10 minutes Jak Steele [facility] Start: 06-25-2021 Chart Update Maia juárez PA-C Work Phone: [facility] Work Phone: Start: 06-25-2021 Chart Update Maia juárez PA-C Work Phone: [facility] Work Phone: Start: 12-30-2020 End: 01-01-2021 Evaluation and management of inpatient SR [facility] Start: 12-30-2020 End: 01-02-2021 ambulatory SR [facility] Start: 12-30-2020 End: 01-01-2021 Evaluation and management of inpatient Bib Alvarez MD Work Phone: [address] Neuro Comment on above: Post-op pain (Primar y Dx) Start: 12-30-2020 End: 01-01-2021 Subsequent hospital visit by physician Bib Alvarez MD Work Phone: [facility] Comment on above: Pain Start: 10-27-2020 End: 10-30-2020 ambulatory SR [facility] Start: 10-27-2020 End: 10-29-2020 Subsequent hospital visit by physician [facility] 6 [facility] Comment on above: Pre-op examination Procedures Date Procedure Procedure Detail Performing Clinician Start: 05-07-2024 Mri spinal canal lum bar w/o contrast material Mady ANAND Work Phone: Start: 10-11-2023 End: 10-11-2023 Removal posterior segmental instrumentation Prem Ding MD Work Phone: Start: 09-26-2023 Computerized axial tomography of lumbar spine with contrast [facility] Start: 06-23-2023 MR lumbar spine wo con DO Dr. [employer] [employer] Work Phone: Start: 06-23-2023 MRI of cervical spin e without contrast [employer] Work Phone: Start: 10-28-2022 XR pre/post mri xray [employer] Work Phone: Start: 10-28-2022 MRI of cervical spin e without contrast [employer] Work Phone: Start: 10-28-2022 MRI of cervical spin e with contrast [employer] Work Phone: Start: 09-16-[address] [employer] Work Phone: Start: 09-13-2022 Radex entir thrc lmb r crv sac spi w/skull 2/3 vw Too Hughes MD Work Phone: Start: 01-19-2021 Lumbar spinal fusion Bria sotelojacques Rodartener Start: 12-31-2020 Radex spine lumbosac ral 2/3 views Bib Alvarez MD Work Phone: Start: 12-31-2020 BASIC METABOLIC PANE L W/ REFLEX TO MG FOR LOW K Bib Alvarez MD Work Phone: Start: 12-31-2020 Blood count [...] Work Phone: Start: 10-30-2019 Cervical arthrodesis Bria deepakjacques Sherman Ankle region structu re (body structure) Star Sherman Comment on above: Left ankle Appendectomy Starjacques Sherman section Star Cayden almaraz H/O: hysterectomy Star Davy pastrana H/O: tubal ligation Star Boswell beatriz History of surgical procedure on cervical spine Star Sherman Comment on above: C4-6 fusion Lumbar spinal fusion Star Sherman Comment on above: L4-5 fusion and repl acement Plan of Treatment Date Care Activity Detail Author Start: 04-08-2029 DTaP/Tdap/Td vaccine (2 - Td or Tdap) DTaP/Tdap/Td vaccine (2 - Td or Tdap) [facility] Start: 11-21-2024 End: 11-21-2024 Patient encounter procedure 11/21/2024 2:20 PM EDT Office Visit [facility] [address] [place] [address] Lora Power MD [address] [facility] [address] [place] [address] [facility] Start: 11-01-2024 End: 11-01-2024 Patient encounter procedure 11/01/2024 2:00 PM EDT Procedure Visit [facility] [address] [place] [address] [facility] Start: 10-17-2024 End: 10-17-2024 Patient encounter procedure 10/17/2024 2:00 PM EST Procedure Visit [facility] [address] [place] [address] [facility] Start: 09-28-2024 End: 09-27-2025 EMG 2 Extremities [facility] Work Phone: Comment on above: Expected: 09/28/2024 (Approximate), Expi res: 09/27/2025 Start: 09-28-2024 End: 09-27-2025 MR Cervical spine WO and W contrast IV MR cervical spine w and wo contrast Imaging Routine Cervical myelopathy ([facility]/H[facility]) Expected: 09/28/2024 (Approximate), Expires: 09/27/2025 [facility] Comment on above: Expected: 09/28/2024 (Approximate), Expi res: 09/27/2025 Start: 09-28-2024 End: 09-27-2025 MR Lumbar spine WO and W contrast IV MR lumbar spine w and wo contrast Imaging Routine Lumbar radiculopathy Status post lumbar spinal fusion Expected: 09/28/2024 (Approximate), Expires: 09/27/2025 [facility] Comment on above: Expected: 09/28/2024 (Approximate), Expi res: 09/27/2025 Start: 09-13-2024 [facility] Start: 05-30-2024 End: 05-30-2024 Patient encounter procedure 05/30/2024 11:10 AM EDT Office Visit [facility] [place], [facility] [address] [place] [address] Prem Ding MD [address] [place] [address] Lumbar F/U, review MRI Lumbar at [facility] [place], [facility] Neurosurgery Comment on above: Lumbar F/U, review MRI Lumbar at [facility] Start: 04-23-2024 End: 04-23-2024 Clinical Support 04/23/2024 3:30 PM EDT Clinical Support [facility] PT [address] [place] [address] Ciera Egan PTA [facility] Start: 04-15-2024 COVID-19 Vaccine ( season) COVID-19 Vaccine ( season) [facility] Start: 04-10-2024 End: 04-10-2024 Clinical Support 04/10/2024 3:00 PM EDT Clinical Support [facility] [address] [place] [address] Ciera Egan PTA [facility] Start: 04-09-2024 End: 04-09-2024 Clinical Support 04/09/2024 3:00 PM EDT Clinical Support [facility] [address] [place] [address] Ciera Egan PTA [facility] Start: 04-04-2024 End: 04-04-2024 Clinical Support 04/04/2024 3:00 PM EDT Clinical Support [facility] PT [address] [place] [address] Ciera Egan PTA [facility] Start: 04-02-2024 End: 04-02-2024 Clinical Support 04/02/2024 3:00 PM EDT Clinical Support [facility] [address] [place] [address] Ciera Egan PTA Arrived [facility] PT Comment on above: Arrived Start: 03-15-2024 Influenza vaccination Flu vaccine (#1) [facility] Start: 12-03-2023 DIABETES SCREEN DIABETES SCREEN [facility] Start: 11-07-2023 End: 11-07-2023 Patient encounter procedure 11/07/2023 11:40 AM EDT Office Visit [facility], [facility] Neurosurgery [address] [place] [address] Prem Ding MD [address] [place] [address] 4 week 1st post op-Removal of Previous Hardware w/Redo Lami and Extension of Fusion to L2-3 [facility], [facility] Neurosurgery Comment on above: 4 week 1st post op-Removal of Previous H ardware w/Redo Lami and Extension of Fusion to L2-3 Start: 09-26-2023 Bacteria identified in Blood by Culture [facility] Start: 09-26-2023 Urine culture Urine Culture [facility] Start: 2023 Screening for malignant neoplasm of breast Breast cancer screen [facility] Start: 2023 Shingles vaccine (1 of 2) Shingles vaccine (1 of 2) [facility] Start: 04-15-2023 Influenza vaccination INFLUENZA (Season Ended) [facility] Start: 03-15-2023 Influenza vaccination Flu vaccine (#1) [facility] Start: 10-15-2022 End: 09-17-2023 Hemoglobin A1c in Blood HGB A1C Lab Routine Personal history of other endocrine, nutritional and metabolic disease Expected: 10/15/2022 (Approximate), Expires: 09/17/2023 [facility] Work Phone: Comment on above: Expected: 10/15/2022 (Approximate), Expi res: 09/17/2023 Start: 10-15-2022 End: 09-17-2023 NICOTINE/COTININE NICOTINE/COTININE Lab Routine Current smoker Expected: 10/15/2022 (Approximate), Expires: 09/17/2023 [facility] Work Phone: Comment on above: Expected: 10/15/2022 (Approximate), Expi res: 09/17/2023 Start: 09-18-2022 End: 09-17-2023 CBC W Auto Differential panel - Blood CBC + DIFF Lab Routine Anemia, unspecified type Expected: 09/18/2022 (Approximate), Expires: 09/17/2023 [facility] Work Phone: Comment on above: Expected: 09/18/2022 (Approximate), Expi res: 09/17/2023 Start: 09-18-2022 End: 09-17-2023 Ferritin [Mass/volume] in Serum or Plasma FERRITIN BLD Lab Routine Anemia, unspecified type Expected: 09/18/2022 (Approximate), Expires: 09/17/2023 [facility] Work Phone: Comment on above: Expected: 09/18/2022 (Approximate), Expi res: 09/17/2023 Start: 09-18-2022 End: 09-17-2023 Iron and Iron binding capacity panel - Serum or Plasma IRON + TIBC Lab Routine Anemia, unspecified type Expected: 09/18/2022 (Approximate), Expires: 09/17/2023 [facility] Work Phone: Comment on above: Expected: 09/18/2022 (Approximate), Expi res: 09/17/2023 Start: 09-16-2022 End: 09-16-2022 [facility] Start: 04-15-2022 Influenza vaccination [facility] Start: 12-31-2021 Creatinine measurement Creatinine monitoring [employer] Phone: Start: 12-31-2021 Potassium monitoring Potassium monitoring [employer] Phone: Start: 11-13-2021 COLORECTAL CANCER SCREENING COLORECTAL CANCER SCREENING [facility] Start: 11-13-2021 FECAL OCCULT BLOOD FECAL OCCULT BLOOD [facility] Start: 10-27-2021 Creatinine measurement Creatinine monitoring [employer] Phone: Start: 10-27-2021 Potassium monitoring Potassium monitoring [employer] Phone: Start: 04-15-2021 Influenza vaccination Flu vaccine (Season Ended) [employer] Phone: Start: 01-16-2021 End: 01-16-2021 Patient encounter procedure 01/16/2021 Office Visit Neurosurgery Bib Alvarez MD [address] [facility] [address] [place], [place] [id number] [employer] [facility] Neurosurgery Start: 11-14-2020 End: 11-14-2020 Office Visit 11/14/2020 Office Visit Neurosurgery Bbi Alvarez MD [address] [place], [place] [id number] [employer] Start: 04-15-2020 Influenza vaccination Flu vaccine (#1) [employer] Phone: Start: 2018 COLOGUARD (FIT-DNA) COLOGUARD (FIT-DNA) [facility] Start: 2018 Colonoscopy COLONOSCOPY [facility] Start: [address] COLONOGRAPHY [facility] Start: 2018 LIPID SCREEN LIPID SCREEN [facility] Start: 2018 Screening for malignant neoplasm of colon [facility] Start: 2018 SIGMOIDOSCOPY SIGMOIDOSCOPY [facility] Start: 2013 Lipid panel [facility] Start: 2013 Mammography MAMMOGRAM [facility] Start: 2013 Screening for malignant neoplasm of breast Breast cancer screen [facility] Start: 2003 HPV TESTING HPV TESTING [facility] Start: 2003 Zoledronic acid therapy ALPHA-1 ANTITRYPSIN DEFICIENCY SCREENING [facility] Start: 1994 PAP TESTING PAP TESTING [facility] Start: 1992 DTaP/Tdap/Td vaccine (1 - Tdap) DTaP/Tdap/Td vaccine (1 - Tdap) [employer] Phone: Start: 1992 Hepatitis B vaccine (1 of 3 - 19+ 3-dose series) Hepatitis B vaccine (1 of 3 - 19+ 3-dose series) [facility] Start: 1992 Urine microalbumin profile DTAP,TDAP,TD (1 - Tdap) [facility] Start: 1991 ANNUAL PCP TEAM CHRONIC DISEASE VISIT ANNUAL PCP TEAM CHRONIC DISEASE VISIT [facility] Start: 1991 HEPATITIS C SCREENING HEPATITIS C SCREENING [facility] Start: 1991 Hepatitis C screening Hepatitis C screen [facility] [place] Start: 1991 HIV SCREENING HIV SCREENING [facility] Start: 1991 SPIROMETRY SPIROMETRY [facility] Start: 1988 HIV screening HIV screen [facility] [place] Start: 1985 COVID-19 Vaccine (1) COVID-19 Vaccine (1) [employer] Phone: Start: 1985 Depression Monitoring Depression Monitoring [employer] Start: 1979 PNEUMOCOCCAL (1 - PCV) PNEUMOCOCCAL (1 - PCV) [facility] Start: 1979 Pneumococcal 0-64 years Vaccine (1 - PCV) Pneumococcal 0-64 years Vaccine (1 - PCV) [employer] Start: 1979 Pneumococcal 0-64 years Vaccine (1 of 1 - PPSV23) Pneumococcal 0-64 years Vaccine (1 of 1 - PPSV23) [employer] Phone: Start: 1979 Pneumococcal 0-64 years Vaccine (1 of 2 - PCV) Pneumococcal 0-64 years Vaccine (1 of 2 - PCV) [employer] Start: 1979 Pneumococcal 0-64 years Vaccine (1 of 2 - PPSV23) Pneumococcal 0-64 years Vaccine (1 of 2 - PPSV23) [employer] Phone: Start: 1978 COVID-19 VACCINE (#1) COVID-19 VACCINE (#1) [facility] Start: 01-24-1974 COVID-19 VACCINE (#1) COVID-19 VACCINE (#1) [facility] Start: 1973 HEPATITIS B (1 of 3 - 3-dose series) HEPATITIS B (1 of 3 - 3-dose series) [facility] Start: 1973 Hepatitis B vaccine (1 of 3 - 3-dose series) Hepatitis B vaccine (1 of 3 - 3-dose series) [facility] Start: 1973 Hepatitis C screening Hepatitis C screen [employer] Phone: Alanine aminotransfe rase [Enzymatic activity/volume] in Serum or Plasma by No addition of P-5'-P [facility] Albumin [Mass/volume ] in Serum or Plasma [facility] Albumin/Globulin ratio [facility] Albumin/Globulin ratio [facility] Alkaline phosphatase [Enzymatic activity/volume] in Serum or Plasma [facility] Anion gap measurement [facility] Anion gap measurement [facility] Aspartate aminotransferase [Enzymatic activity/volume] in Serum or Plasma [facility] Basophils [#/volume] in Blood by Automated count [facility] Basophils/100 leukoc ytes in Blood by Automated count [facility] Bilirubin.total [Mass/volume] in Serum or Plasma [facility] End: 10-11-2023 Blood glucose - POCT Blood glucose - POCT Point of Care Testing Routine One Time for 1 Occurrences starting 10/11/2023 until 10/11/2023 OLAF JONAS [employer] Phone: Comment on above: One Time for 1 Occurrences starting 09/16 until 10/11/2023 C reactive protein [Mass/volume] in Serum or Plasma [facility] Calcium [Mass/volume ] in Serum or Plasma [facility] Carbon dioxide, tota l [Moles/volume] in Serum or Plasma [facility] Chloride [Moles/volu me] in Serum or Plasma [facility] Continuous pulse oximetry Pulse oximetry, continuous Respiratory Care Routine Every 4hr until discontinued starting 12/30/2020 [employer] Phone: Comment on above: Every 4hr until discontinued starting Creatinine and Glome rular filtration rate.predicted panel - Serum, Plasma or Blood [facility] Eosinophils/100 leukocytes in Blood by Automated count [facility] Erythrocyte distribu tion width [Ratio] by Automated count [facility] Erythrocyte sediment ation rate by Photometric method [facility] Erythrocytes [#/volu me] in Blood [facility] Gliadin peptide+tiss ue transglutaminase IgA+IgG Ab [Presence] in Serum by Immunoassay [facility] Globulin [Mass/volum e] in Serum [facility] Globulin [Mass/volum e] in Serum [facility] Glucose [Mass/volume ] in Serum or Plasma [facility] End: 10-11-2023 Guidance-- during surgery [facility] [place] [employer] Work Phone: Comment on above: Once for 1 Occurrences starting 10/11/19 until 10/11/2023 Hematocrit [Volume Fraction] of Blood [facility] Hemoglobin [Mass/vol ume] in Blood [facility] Initiate RT Inhaler-Nebulizer Bronchodilator Protocol Initiate RT Inhaler-Nebulizer Bronchodilator Protocol Respiratory Care Routine Daily until discontinued starting 10/11/2023 [facility] Comment on above: Daily until discontinued starting 2023 Leukocytes [#/volume ] corrected for nucleated erythrocytes in Blood by Automated coun [facility] Leukocytes [#/volume ] in Blood [facility] Lymphocytes [#/volum e] in Blood by Automated count [facility] Lymphocytes/100 leukocytes in Blood by Automated count [facility] MCH [Entitic mass] b y Automated count [facility] MCHC [Mass/volume] b y Automated count [facility] MCV [Entitic volume] by Automated count [facility] MDI treatment MDI treatment Respiratory Care Routine 4x Daily PRN until discontinued starting 10/11/2023 [facility] Comment on above: 4x Daily PRN until discontinued starting 10/11/2023 Measurement of renal function [facility] Monocytes [#/volume] in Blood by Automated count [facility] Monocytes/100 leukoc ytes in Blood by Automated count [facility] End: 10-13-2023 Mri spinal canal cervical w/o contrast matrl MRI CERVICAL SPINE WO IVCON Radiology Routine Spinal stenosis of cervical region 1 Occurrences starting 09/13/2022 until 10/13/2023 [facility] Work Phone: Comment on above: 1 Occurrences starting 09/13/2022 until 10/13/2023 Neutrophils [#/volum e] in Blood by Automated count [facility] Neutrophils/100 leukocytes in Blood by Automated count [facility] Nucleated erythrocyt es [Presence] in Blood by Automated count [facility] Oxygen therapy [Mini mum Data Set] Initiate Oxygen Therapy Protocol Respiratory Care Routine Daily until discontinued starting 12/30/2020 [employer] Phone: Comment on above: Daily until discontinued starting 2020 Oxygen therapy [Mini mum Data Set] Initiate Oxygen Therapy Protocol Respiratory Care Routine As Needed until discontinued starting 10/11/2023 [employer] Comment on above: As Needed until discontinued starting Patient Education [facility] Work Phone: Patient referral [facility] Work Phone: Platelet mean volume [Entitic volume] in Blood by Automated count [facility] Platelets [#/volume] in Blood [facility] Potassium [Moles/vol ume] in Serum or Plasma [facility] End: 10-11-2023 , urine POCT , urine POCT Point of Care Testing Routine One Time for 1 Occurrences starting 10/11/2023 until 10/11/2023 [employer] Comment on above: One Time for 1 Occurrences starting 09/16 until 10/11/2023 Protein [Mass/volume ] in Serum or Plasma [facility] Sodium [Moles/volume ] in Serum or Plasma [facility] Spirometry panel Incentive alyce metry Respiratory Care Routine Every 2hr while awake until discontinued starting 12/30/2020 [employer] Phone: Comment on above: Every 2hr while awake until discontinued starting 12/30/2020 Spirometry panel Incentive alyce metry Respiratory Care Routine Every 2hr while awake until discontinued starting 10/11/2023 [employer] Comment on above: Every 2hr while awake until discontinued starting 10/11/2023 Surgical Pathology Surgical Path ology Lab Routine Release Upon Ordering for 1 Occurrences starting 12/30/2020 [employer] Phone: Comment on above: Release Upon Ordering for 1 Occurrences starting 12/30/2020 Urea nitrogen [Mass/volume] in Serum or Plasma [facility] End: 10-27-2020 XR SPINE ENTIRE (2-3 VWS) XR SPINE ENTIRE (2-3 VWS) Imaging Routine Pre-op examination 1 Occurrences starting 10/27/2020 until 10/27/2020 [employer] Phone: Comment on above: 1 Occurrences starting 10/27/2020 until 10/27/2020 XR SPINE ENTIRE (2-3 VWS) XR SPI NE ENTIRE (2-3 VWS) Imaging Routine Pre-op examination 10/27/2020 11:32 AM EDT [employer] Phone: [facility] Payers Date Payer Category Payer Self-pay [id number] 2016 Medicaid [facility] MEDIC AID [facility] MEDICAID [id number] 2016-Present [phone] [address] [place] [address] Medicaid [id number] 2016 Medicaid [id number] 2016 Private Health Insurance [facility] MEDICAID [id number] 1973 Unknown [id number] 2.16.840.1.068249.3.579.2. 182 1973 Unknown [id number] .16.840.1.148813.3.579.2. 182 1973 Unknown [id number] 2.16.840.1.752300.3.579.2. 182 1973 Unknown [id number] 2.16.840.1.280390.3.579.2. 593 1973 Unknown [id number] 2.16.840.1.519128.3.579.2. 593 1973 Unknown [id number] 2.16.840.1.370987.3.579.2. 593 1973 Unknown [id number] 2.16.840.1.505727.3.579.2. 718 1973 Unknown [id number] 2.16.840.1.443132.3.579.2. 718 1973 Unknown [id number] 2.16.840.1.054527.3.579.2. 727 1973 Unknown [id number] 2.16.840.1.525769.3.579.2. 177 1973 Unknown [id number] 2.16.840.1.277091.3.579.2. 177 1973 Unknown [id number] 2.16.840.1.026905.3.579.2. 177 1973 Unknown [id number] 2.16.840.1.088067.3.579.2. 1259 1973 Unknown [id number] 2.16.840.1.414666.3.579.2. 1259 1973 Unknown [id number] 2.16.840.1.442060.3.579.2. 1259 1973 Unknown [id number] 2.16.840.1.554190.3.579.2. 1259 1973 Unknown [id number] 2.16.840.1.408343.3.579.2. 1259 1973 Unknown [id number] 2.16.840.1.546816.3.579.2. 1259 1973 Unknown [id number] 2.16.840.1.572928.3.579.2. 9 1973 Unknown [id number] 2.16.840.1.704056.3.579.2. 1259 1973 Unknown [id number] 2.16.840.1.139827.3.579.2. 9 1973 Unknown [id number] 2.16.840.1.006339.3.579.2. 1259 1973 Unknown [id number] 2.16.840.1.250310.3.579.2. 9 1973 Unknown [id number] 2.16.840.1.484381.3.579.2. 175 1959 Medicaid [id number] 1959 Unknown [id number] 1.2.840.783305.1.13.239.2. 7.3.209669.315 Unknown [id number] 2.16.840.1.713112.3.579.2. 531 Unknown [id number] 2.16.840.1.836126.3.579.2. 531 Social History Date Type Detail Facility Start: 10-27-2020 End: 05-22-2024 Tobacco smoking status [facility] Current every day smoker [facility] Start: 10-27-2020 End: 08-24-2023 Tobacco use and exposure Current user [employer] Phone: Start: 10-27-2020 End: 10-24-2024 Alcohol intake Current drinker of alcohol (finding) [employer] Phone: Start: 10-27-2020 History SDOH Financial 5 [employer] Phone: Start: 10-27-2020 History SDOH Food Worry 1 [employer] Phone: Start: 10-27-2020 History SDOH Transport Med 2 [employer] Work Phone: Start: 1975 Sex Assigned At Not on file [employer] Work Phone: Exposure to SARS-CoV-2 (event) Not sure [employer] Work Phone: History of tobacco use Cigarette Smoker [facility] Start: 06-30-2017 End: 10-24-2024 Cigarettes smoked current (pack per day) - Reported 2 [facility] Start: 06-30-2017 End: 05-22-2024 Tobacco use and exposure Smokeless tobacco non-user [facility] Start: 06-30-2017 History SDOH Alcohol Comment social [facility] Start: 10-11-2023 End: 10-24-2024 Sex Assigned At [facility] Start: 1975 Sex Assigned At Female F [facility] Start: 09-16-2022 End: 09-13-2024 Tobacco smoking status NHIS Smoker (finding) [facility] Tobacco Cigarettes, 2 per day. [facility] Tobacco smoking status No Smoking Status Entered [facility] Has the electric, gas, oil, or water company threatened to shut off services in your home in past 12Mo No [employer] [facility] How often to you hav e a drink containing alcohol? 2-4 times a month [employer] [facility] How many standard drinks containing alcohol do you have on a typical day? 1 or 2 [employer] [facility] How often do you hav e 6 or more drinks on 1 occasion? Never [facility]ON [employer] [facility] How hard is it for you to pay for the very basics like food, housing, medical care, and heating Not hard at all [employer] (I/We) worried whether (my/our) food would run out before (I/we) got money to buy more. Never true [employer] [facility] Start: 07-18-2023 Alcohol Comment occas [email or web address] [facility] Tobacco smoking status MDIS Tobacco smoking consumption unknown [facility] Start: 09-13-2024 Sex Female (finding) [facility] NEGATED: Highlighted row [facility] Medical Equipment Procedure Code Equipment Code Equipment Origin al Text Equipment Identifier Dates Graft Bne Sub 15 ml 1.7-10mm Canc Chip Morselized Frz Dry - [id number] Start: 12-30-2020 Graft Bne Sub 15 ml 1.7-10mm Canc Chip [employer]ors[employer] Frz Dry - [id number] Start: 12-30-2020 Kit Bne Grft Sm Rhbmp-2 4.2mg Inj 5ml Contain Ndl 20ga [id number] Start: 12-30-2020 Spacer Spnl [id number] 4deg L Peek Post Lum Intbdy Fus [id number] Start: 12-30-2020 Connector Spnl C rss Lo Prof Adj Reline-O 5.5 X 45-65 Mm [id number] Start: 12-30-2020 Screw Spnl L55mm Od6mm 2s Polyax Reline O [id number] Start: 12-30-2020 Screw Spnl Dia5. 5mm Opn Tulip Deborah Reline [id number] Start: 12-30-2020 Jennifer Spnl Lordtc 5.5x80 Mm Ti Reline-O [id number] [...] MD 10/30/19 Unknown Neck FDA Start: 10-30-2019 Top Clsr Dia55 6 mm Std For Thorlum Sacroiliac Fix Sys - [id number] Start: 10-11-2023 Jennifer Spnl Crv 5.5 x75 Mm Prebent Ti Vitality - [id number] Start: 10-11-2023 Jennifer Spnl Crv 5.5 x85 Mm Prebent Ti Vitality - [id number] Start: 10-11-2023 Screw Spnl L55mm Dia6.5mm Polyax Thorlum Sacroiliac Vitality - [id number] Start: 10-11-2023 Graft Bne Sub 15 gm Grn Ca Compnd Ptty And Silicate Base Inj - [id number] Start: 10-11-2023 Goals Date Patient Goal Desired Activity /State Functional Status Date Assessment Result Facility 04-12-2023 Functional Status N/A [facility] Clinical Notes 12-30-2020 to 12-25-2024 Telephone Encounter - Kylie Mar - 12/25/2024 3:01 PM EDTTelephone Encounter - Kylie Mar - 12/25/2024 3:01 PM EDTBandrew Power MD - 09/27/2024 3:40 PM ESTAttachments Note Date & Type Note Facility 12-25-2024 Telephone encounter Note Pt has MRI on Tuesday and needs something called in so she can lay through it. [facility] Work Phone: 12-25-2024 Miscellaneous Notes Pt has MRI on Tuesday and needs something called in so she can lay through it. documented in this encounter [facility] 09-27-2024 History of Present illness Narrative Images from the original note were not included. CHIEF COMPLAINT REASON FOR VISIT: New patient consultation. HPI: Macie Cloud is a 49 y.o. female who presents for A new patient consultation self referred and previous HA patient. She states she has pain in her back. She states standing for 5 minutes or less she has to sit down due to the pain. Patient states did have back surgery and she did good for a while. But then she had a lot of swelling and pain. She states.She states went to the ER and then was sent to [facility] then states it was not an infection then said her disc failed and had to do another surgery. She states she does get neck pain. She states her fingers stay numb in the left hand. She states she has trouble even doing small thing such as taking a shower. She states she stays in her room most of the time due to the pain - she states she gets pain that radiates down into the right leg. She states the pain is in the front of the leg. CURRENT MEDICATIONS: ALLERGIES/DISCONTINUE MEDICATIONS Current Outpatient Medications Medication Instructions albuterol HFA 90 mcg/act inhaler 2 puffs, Inhalation, Every 4 hours PRN amitriptyline (ELAVIL) 50 mg, Oral, Nightly benzonatate (TESSALON PERLES) 100 mg, Oral, 3 times daily PRN, Do not crush or chew. Buprenorphine HCl-Naloxone HCl (Suboxone) 8-2 MG SL film DISSOLVE 2.5 films SUBCUTANEOUSLY (UNDER THE SKIN) ONCE DAILY cyanocobalamin (Vitamin B-12) 1000 MCG/ML injection ADMINISTER 1ML INTRAMUSCULARLY EVERY 30 DAYS gabapentin (NEURONTIN) 800 mg, Oral, 3 times daily lisinopril-hydroCHLOROthiazide 20-12.5 MG tablet metroNIDAZOLE (Metrocream) 0.75 % cream APPLY a thin layer to breakouts on face once or twice a day mometasone (Elocon) 0.1 % cream APPLY a thin layer to face TWICE DAILY up to 3 (THREE) weeks then NEEDED FOR ITCHING omeprazole (PriLOSEC) [address] capsule Daily QUEtiapine (SEROquel) 200 MG tablet 1 tablet, Oral, 2 times daily rOPINIRole (Requip) 1 MG tablet TAKE 1 TABLET BY MOUTH DAILY 1-3 HOURS BEFORE BEDTIME tiZANidine (Zanaflex) 4 MG tablet TAKE 3 TABLETS BY MOUTH AT BEDTIME NEEDED No Known Allergies There are no discontinued medications. PAST MEDICAL HISTORY: SURGICAL/SOCIAL/FAMILY HISTORY DEPRESSION SCREEN: No past medical history on file. No past surgical history on file. Social History Tobacco Use Smoking status: Every Day Types: Cigarettes Smokeless tobacco: Never Substance Use Topics Alcohol use: Yes Drug use: Yes Types: Marijuana No family history on file. Depression: At risk (11/20/2022) Received from [facility] PHQ-2 PHQ-2 score: 4 REVIEW OF SYMPTOMS: Review of Systems Constitutional: Negative for chills, diaphoresis, fatigue and fever. HENT: Negative for ear pain, tinnitus and trouble swallowing. Eyes: Negative for photophobia and visual disturbance. Respiratory: Negative for cough and shortness of breath. Cardiovascular: Negative for chest pain, palpitations and leg swelling. Gastrointestinal: Negative for abdominal pain and nausea. Genitourinary: Negative for difficulty urinating, dysuria, pelvic pain and urgency. Musculoskeletal: Positive for back pain, gait problem, neck pain and neck stiffness. Negative for arthralgias and myalgias. Neurological: Positive for weakness, numbness and headaches. Negative for tremors and light-headedness. Psychiatric/Behavioral: Negative for agitation, confusion and suicidal ideas. OBJECTIVE: 09/27/2024 3:38 PM 05/22/2024 10:28 AM 04/15/2022 12:00 PM Vitals BMI 18.83 kg/m2 18.83 kg/m2 19.6 kg/m2 BSA (m2) 1.62 m2 1.62 m2 1.66 m2 Systolic 182 122 118 Diastolic 104 76 74 Heart Rate 79 SpO2 96 % Temp 96.6 F Height (in) 5' 7.5 5' 7.5 Weight (lb) 122 122 127 Visit Report Report Report EXAM: Neurological Exam Mental Status Awake, alert and oriented to person, place and time. Oriented to person, place and time. Recent and remote memory are intact. Speech is normal. Language is fluent with no aphasia. Attention and concentration are normal. Cranial Nerves CN II: Visual acuity is normal. Visual jones full to confrontation. CN III, IV, : Extraocular movements intact bilaterally. Normal lids and orbits bilaterally. Pupils equal round and reactive to light bilaterally. CN V: Facial sensation is normal. CN VII: Full and symmetric facial movement. CN VIII: Hearing is normal. CN XII: Tongue midline without atrophy or fasciculations. Motor Normal muscle bulk throughout. Normal muscle tone. Right Left Wrist flexion 5 5 Wrist extension 5 5 Right Left Deltoid 5 5 Biceps 5 5 Triceps 5 5 Wrist flexor 5 5 Wrist extensor 5 5 Glutei 5 5 Iliopsoas 5 5 Quadriceps 5 5 Gastrocnemius 5 5 Anterior tibialis 5 5 Posterior tibialis 5 5 Sensory Light touch is normal in upper and lower extremities. Pinprick is normal in upper and lower extremities. Vibration is normal in upper and lower extremities. Reflexes Right Left Brachioradialis 2+ 2+ Biceps 2+ 2+ Patellar 2+ 2+ Achilles 2+ 2+ Right Plantar: downgoing Left Plantar: downgoing Right pathological reflexes: Sandro's absent. Ankle clonus absent. Left pathological reflexes: Sandro's absent. Ankle clonus absent. Coordination Inqytk-ip-nerv, rapid alternating movements and juub-az-ocij normal bilaterally without dysmetria. Gait Normal casual, toe, heel and tandem gait. Romberg is absent. Answers submitted by the patient for this visit: Back Pain Questionnaire (Submitted on 09/27/2024) Chief Complaint: Back pain Chronicity: chronic Onset: more than 1 year ago Frequency: constantly Progression since onset: gradually worsening Pain location: lumbar spine Pain quality: aching, burning, shooting, stabbing Radiates to: right foot, right knee, right thigh Pain - numeric: 10/10 Pain is: the same all the time Aggravated by: bending, coughing, position, standing, stress, twisting Stiffness is present: all day bladder incontinence: No bowel incontinence: No leg pain: Yes perianal numbness: No paresis: No paresthesias: Yes tingling: Yes weight loss: Yes Risk factors: menopause, poor posture PROCEDURE: NONE ASSESSMENT AND PLAN: Macie Cloud is a 49 y.o. female that presents with cervical and lumbar pain. The possible etiologies include cervical or lumbar degenerative disc disease or facet joint disease. The patient also complains of radicular pain and paresthesias into the upper and lowers extremities possibly due to cervical, thoracic, or lumbar radiculopathy, brachial or lumbosacral plexopathy or peripheral neuropathy. She has a sensory disturbance in the distal lower extremities manifested predominantly as numbness and paresthesia in her bilateral feet which have been progressive over the past 8 months, Possible etiologies would include a generalized process affecting large fibers such as peripheral neuropathy, lumbar radiculopathy, or lumbosacral plexopathy. I cannot exclude a small fiber neuropathy contributing to predominantly sensory symptoms in the lower extremities, I cannot exclude it medical condition or metabolic process contributing to peripheral nerve dysfunction including polyneuropathy. Diagnoses and all orders for this visit: Lumbar radiculopathy Status post lumbar spinal fusion EMG 2 Vpqqqzrnmmk-ITA-V will order an electromyograph evaluation of the lower extremities to assess for nerve damage such as lumbar radiculopathy, lumbar plexopathy, or peripheral neuropathy I will obtain an MRI of the lumbar spine to assess for a structural lesion including degenerative lumbar spine disease which may be contributing to the patient's symptoms. MR lumbar spine w and wo contrast; [facility] PHN (postherpetic neuralgia) ([facility]) Start lidocaine (Lidoderm) 5 % patch; Apply 2 patches over 12 hours topically Daily Remove & discard patch within 12 hours or as directed by MD. Cervical myelopathy ([facility]) EMG 2 Ihxgwycknmb-RPK-Y will order an electromyograph evaluation of the upper extremities to assess for nerve damage such as cervical radiculopathy, brachial plexopathy, or entrapment mononeuropathy I will order MR cervical spine w and wo contrast; [facility] Total time 30 minutes spent reviewing records, performing medically appropriate exam, counseling , education, ordering medication, tests, and/or procedures, documenting health information into the health record, communicating results to the patient, and coordinating care. Follow up 6-8 weeks This note was scribed by TYE Ortega acting under the direction of Lora Power MD. The content has been reviewed and confirmed for accuracy by Lora Power MD documented in this encounter [facility] 05-22-2024 History of Present illness Narrative HPI: Historian of HPI: patient Macie Cloud is a 48 y.o. female who presents today to the Urgent Care with the following complaints and denials due left rib pain which has been present for 1 day(s). C/O Denies Symptom Comments [] [x] swelling [] [x] ecchymosis [] [x] erythema [] [x] tingling [] [x] numbness [x] [] Pain [] [x] Weakness [x] [] Decreased ROM [x] [] Trauma Coughing Additional Comments: pt has taken motrin OTC medication without relief Pt denies heat application to the affected area Pt denies cold application to the affected area Patient is a smoker. She has a chronic cough. She reports she was coughing and felt a pop on the left side. Since then, she has been in pain on the left side rib cage pain. ROS: A complete system ROS was performed and negative aside from the pertinent positives noted in the HPI and PE. Visit Vitals BP 122/76 Pulse 79 Temp 96.6 F Wt 122 lb SpO2 96% BMI 18.83 kg/m Smoking Status Every Day BSA 1.62 m Physical Exam Vitals reviewed. Constitutional: General: She is not in acute distress. Appearance: Normal appearance. HENT: Head: Normocephalic and atraumatic. Nose: Nose normal. Mouth/Throat: Mouth: Mucous membranes are moist. Pharynx: Oropharynx is clear. Eyes: Extraocular Movements: Extraocular movements intact. Conjunctiva/sclera: Conjunctivae normal. Pupils: Pupils are equal, round, and reactive to light. Cardiovascular: Rate and Rhythm: Normal rate and regular rhythm. Pulses: Normal pulses. Heart sounds: Normal heart sounds. Pulmonary: Effort: Pulmonary effort is normal. No tachypnea, accessory muscle usage, respiratory distress or retractions. Breath sounds: Decreased air movement present. Examination of the left-middle field reveals decreased breath sounds. Examination of the left-lower field reveals decreased breath sounds. Decreased breath sounds present. No wheezing, rhonchi or rales. Musculoskeletal: General: Normal range of motion. Cervical back: Normal range of motion and neck supple. Skin: General: Skin is warm and dry. Capillary Refill: Capillary refill takes less than 2 seconds. Findings: No rash. Neurological: General: No focal deficit present. Mental Status: She is alert and oriented to person, place, and time. Psychiatric: Mood and Affect: Mood normal. Behavior: Behavior normal. Thought Content: Thought content normal. Judgment: Judgment normal. 1. Chronic cough New medication as directed. Acetaminophen or ibuprofen for reduction of fever and pain. Increase fluids. Good handwashing. Discussed warning signs of worsening infection and when to report to ER. New toothbrush in 24 hours. Call office if symptoms have not started to improve within the next 72 hours. Patient verbalized understanding of instructions. - XR ribs 2 views left w chest anteroposterior; Future - methylPREDNISolone (Medrol Dospak) 4 MG tablets; Follow schedule on package instructions Dispense: 21 tablet; Refill: 0 - benzonatate (Tessalon Perles) 100 MG capsule; Take 1 capsule (100 mg) by mouth 3 (three) times a day as needed for cough Do not crush or chew. Dispense: 21 capsule; Refill: 0 2. Rib pain on left side Patient is a smoker. She has a chronic cough. She reports she was coughing and felt a pop on the left side. Since then, she has been in pain on the left side rib cage pain. Obtain x ray. - XR ribs 2 views left w chest anteroposterior; Future - ketorolac (Toradol) injection 60 mg - methylPREDNISolone (Medrol Dospak) 4 MG tablets; Follow schedule on package instructions Dispense: 21 tablet; Refill: 0 3. Inspiratory pain Encouraged her to cough and deep breathe using a pillow as a splint to prevent pneumonia. She expressed an understanding. - XR ribs 2 views left w chest anteroposterior; Future - methylPREDNISolone (Medrol Dospak) 4 MG tablets; Follow schedule on package instructions Dispense: 21 tablet; Refill: 0 - albuterol HFA 90 mcg/act inhaler; Inhale 2 puffs every 4 (four) hours if needed for wheezing or shortness of breath Dispense: 18 g; Refill: 0 4. Closed fracture of multiple ribs of left side, initial encounter Consulted with Dr. Pate and he did review the rib x ray with chest. Possible non-displaced 5-6th rib fractures likely. Dx and tx discussed with patient and she expressed an understanding. See below for final radiologist read and telephone encounter. - methylPREDNISolone (Medrol Dospak) 4 MG tablets; Follow schedule on package instructions Dispense: 21 tablet; Refill: 0 - albuterol HFA 90 mcg/act inhaler; Inhale 2 puffs every 4 (four) hours if needed for wheezing or shortness of breath Dispense: 18 g; Refill: 0 FINDINGS: Chest x-ray, 1 view: Heart size normal. Pulmonary vessels are not cephalized. No alveolar edema or pneumonia. No pleural effusion or pneumothorax. Postprocedural changes in the cervical spine and lumbar spine. Gentle dextrorotoscoliosis of the upper lumbar spine. Rib cage analysis: 6 views: Negative for displaced rib fracture. No pneumothorax. No pleural effusion. No rib lesion. IMPRESSION: 1. Negative for specific acute cardiopulmonary pathology. 2. No displaced rib fracture or rib lesion identified. If patients clinical symptomatology warrants, further imaging investigation with CT scanning is available. documented in this encounter [facility] 10-12-2023 History of Present illness Narrative 10/12/2023 7:09 AM Macie Thacker Pedro Luis [id number] SUBJECTIVE: Uneventful PM per nursing, pt doing well this AM. C/O some low back discomfort, states no new N/T in UE or LE. Eating and drinking well. OBJECTIVE Physical Temperature Range (24h):Temp: 97.3 F (36.3 C) Temp Av.6 F (36.4 C) Min: 96.8 F (36 C) Max: 98.6 F (37 C) BP Range (24h): Systolic (24hrs), Av , Min:94 , Max:144 Diastolic (24hrs), Av, Min:59, Max:109 Pulse Range (24h): Pulse Av.4 Min: 88 Max: 134 Respiration Range (24h): Resp Av.2 Min: 10 Max: 30 Current Pulse Ox (24h): SpO2: 95 % Pulse Ox Range (24h): SpO2 Av.7 % Min: 92 % Max: 99 % In: 2594 [P.O.:650; I.V.:1944] Out: 3260 [Urine:3000; Drains:180] Good strength and sensation in both UE and LE. Incision CDI. ASSESSMENT AND PLAN 48 y.o. female status post L2-3 PLIF post op day # 1 1. OK for patient to be discharged home this afternoon if doing well, eating and drinking, OOB to halls, urinating normally. F/U care and wound care instructions given at bedside. F/U with Dr. Ding in 2 week. The patient arrived to the room from PACU; awake and alert and oriented to the bed mechanics, call light, safety and orders. CLINICAL PHARMACY NOTE: MEDS TO BEDS Total # of Prescriptions Filled: 1 The following medications were delivered to the patient: Tizanidine 2mg Additional Documentation: Percocet to home pharm 10/10/2023 documented in this encounter [facility] 10-11-2023 Hospital Discharge instructions Mady Cook PA - 10/11/2023 10:04 AM EST No driving for two weeks after surgery. No lifting greater than 10 pounds for the first month. Keep dressing dry and in place until shower on Tuesday Remove dressing after shower on Tuesday Keep it Clean - Post-Operative Home instructions These instructions are to help you have the best possible recovery after your surgical procedure. [facility] is here to support you. If you have questions, call [phone] Tuesday through Tuesday from 7:30AM to 8:30PM to speak to a nurse. If you need to speak to someone outside of these hours, call your physician. Incision Do s and Don ts Do wash hands before and after dressing changes or when you have had any contact with your incision. Use hand ship fastener or antibacterial soap. Do keep your incision clean and dry. It s OK to wash the skin around your incision with mild soap and water. Do change your dressing as you were told. Do notify your doctor if the dressing becomes wet or dirty. Do use a clean washcloth every time when cleaning your incision. Do sleep on clean linens. Do keep pets away from incision site. Don t sit in a bathtub, pool, or hot tub until your incision is fully closed and any drains are removed. Don t scrub, pick, scratch, or pull at your incision. Don t use oils, lotions, or creams on your incision unless your healthcare provider approves it. Follow-up You will have one or more follow-up visits with your healthcare provider. These are needed to check how well you re healing. Your drain, stitches, or theresa may also be removed during these visits. Do not miss your follow-up visit, even if you are feeling better. Call your healthcare provider right away if you have the following: Fever of 100.4 F (38 C) or higher, or as advised by your healthcare provider. Chest pain or trouble breathing. Pain or tenderness in your leg(s). Increased pain, redness, swelling, bleeding, or foul-smelling drainage at the incision site. Incision changes, separates or is hot to the touch. Problems with the drain if you have one. Itchy, swollen skin; skin rash. Medicines, Diet, and Activity: Refer to your discharge paperwork for further instructions The following attachments cannot be sent through Care Everywhere.Lumbar Laminectomy: Post-op (Iraqi)Constipation (Iraqi)DVT (Deep Vein Thrombosis): General Info (Iraqi)COPD: Exacerbation ([place]raqi)Smoking Cessation: Health Benefits: General Info ([place]raqi)acetaminophen and oxycodone ([place])tizanidine ([place])documented in this encounter [facility] 04-12-2023 Evaluation + Plan note Extrac rajani from: Title:NPV Author:Star Sherman MD Date :04/12/23 Impression and Plan 47-year-old female [...] depression as well as having quit smoking. [facility]2023 Evaluation note* Encounter Date Diagnosis Assessment Notes Treatment Notes Treatment Clinical Notes Feb, Post laminectomy syndrome (ICD-10 - M96.1) [facility] Other 06-29-2023 NoteHNO ID: [id number] Author: Darlyn Kaufman RN Service: ? Author Type: Registered Nurse Type: Progress Notes Filed: 02/10/2023 9:31 AM Note Text: Patient referred to Blood Management for anemia evaluation/pre-surgical optimization. Current and complete lab data unavailable. Unable to complete evaluation.[facility]06-29-2023 History of Present illness Narrative* Darlyn Kaufman RN - 02/10/2023 9:31 AM EDT Patient referred to Blood Management for anemia evaluation/pre-surgical optimization. Current and complete lab data unavailable. Unable to complete evaluation. [facility] NoteHNO ID: [id number] Author: Too Hughes MD Service: ? Author [...] visit. Either the patient or their legal pest control service representative has been informed of the risks and benefits of -- and alternatives to -- treatment through a remote evaluation and consents to proceed with the evaluation remotely.[facility]04-08-2023 History of Present illness Narrative* Too [...] visit. Either the patient or their legal pest control service representative has been informed of the risks and benefits of -- and alternatives to -- treatment through a remote evaluation andconsents to proceed with the evaluation remotely. documented in this [facility]23 NoteEducation Materials Orthopedics Chronic Back Pain When [...] them backward. ? 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 [...] prescription pain medicine, or muscle relaxants. Take cste-qjy-shtethq and prescription medicines only as told by your health care provider. ? Ask your health care provider if the medicine prescribed to you: ? Requires you to avoid driving or using machinery. ? Can cause constipation. You may need to take these actions to prevent or treat constipation: ? Drink enough fluid to keep your urine pale yellow. ? Take zvcw-uvl-qrbrmcu or prescription medicines. ? Eat foods that [...] to replace advice given (more content not included)...[id number] Miscellaneous Notes* Telephone Encounter - Karen Watkins RN - 10/07/2022 8:48 AM EST Neuro SPINE CARE COORDINATION SURGERY SCHEDULING Pt scheduled for 12/30/2022. This date is now an OR at [facility]. Due to this, pt will need to [...] Dr Hughes at 240pm [address] [place] ([place] Office Date): anytime Pre op Education: 02/08/2023 inperson at 3pm with Nigel Watkins RN Post op appts: 2 Week VV Post-op with Caroline Malone NP 6-8 week post op appointment with Saul on 04/19/23 at 1120pm. Please schedule XRAY prior to visit. Case message sent to surgery schedulers. Karen Watkins RN documented in [facility] Miscellaneous Notes* Telephone Encounter - Karen Watkins RN - 09/17/2022 12:35 PM EST Neuro SPINE CARE COORDINATION SURGERY SCHEDULING Per Dr Hughes OK to schedule pt for surgery. Patient accepts surgery date of 12/30/[address] Too Hughes at [facility]. Planned procedure: Revision L3-S1 and ext to L2 lumbar fusion. Length of Surgery:5 hrws Expected Length of Hospital Stay:3-4 Patient's Home Address: [address] [place] [id number] Medications reviewed : Yes. Meds to be [...] , and nicotine. Education Sent Via Mail/ JDCPhosphatehart: JDCPhosphatehart PACC Questionnaire Completed: Yes Qualify TREK for Surgical Success?: Yes Patient placed on cancellation list: No Pre op appts: [place]: anytime PACC: [facility] 12/07/22 IC: 12/07/22 at 1140 am with [...] [13.4] Karen Watkins RN documented in this encounterPrem[facility]-02-[facility] Procedure [facility]01-30-2023 NoteHNO ID: [id number] Author: RT Vicente(R) Service: Radiology Author Type: [...] BY: RT Vicente(R) September 13, 2022 3:36 [facility]01-30-2023 History of Present illness Narrative* RT Vicente(Franck) - 09/13/2022 4:00 PM EST Radiology Service [...] 13, 2022 3:36 PM documented in this encounterPrem[facility]-30-2023 NoteHNO ID: [id number] Author: Too Hughes MD Service: ? Author Type: Physician Type: Progress Notes Filed: 09/13/2022 2:50 PM Note Text: SPINE SURGERY OUTPATIENT CONSULT This is an in-person visit. SERVICE DATE: 09/13/2022 PCP: Cristiano Graham Sr, MD REFERRING PROVIDER: Lei Martinez [address] [id number] Consult requested for an opinion regarding the [...] PROBLEM LIST Copd (Chronic Obstructive Pulmonary Disease) ([facility]) Current Smoker Neck Pain S/P Cervical Spinal Fusion Anxiety and Depression Iron Deficiency Anemia B12 Deficiency PAST MEDICAL HISTORY Diagnosis Date Anemia 10/[address] Cristiano Graham Anxiety and depression COPD (chronic obstructive pulmonary disease) ([facility]) Current smoker Neck pain S/P cervical spinal [...] 07/30/2022 09/11/2022 Benzel Modified ROBERT Score 11 (more content not included)...[facility]01-30-2023 History of Present illness Narrative* Too Hughes MD - 09/13/2022 1:21 PM EST Images from the original note were not included. SPINE SURGERY OUTPATIENT CONSULT This is an in-person visit. SERVICE DATE: 09/13/2022 PCP: Cristiano Graham Sr, MD REFERRING PROVIDER: Lei Martinez [address] [id number] Consult requested for an opinion regarding the [...] PROBLEM LIST Copd (Chronic Obstructive Pulmonary Disease) ([facility]) Current Smoker Neck Pain S/P Cervical Spinal Fusion Anxiety and Depression Iron Deficiency Anemia B12 Deficiency PAST MEDICAL HISTORY Diagnosis Date Anemia 10/[address] Cristiano Graham Anxiety and depression COPD (chronic obstructive pulmonary disease) ([facility]) Current smoker Neck pain S/P cervical spinal [...] with more than 50% of the total [id number] time of the visit in counseling / coordination of care. SIGNATURE: Too Hughes MD PATIENT NAME: Macie Cloud DATE: September 13, 2022 TIME: 1:22 PM PAGER: documented in this encounter[facility] Miscellaneous Notes* Telephone Encounter - Lei Martinez [...] Martinez PA-C Spine Surgery documented in this encounterPremier [facility]12-19-2022 Miscellaneous Notes* Telephone Encounter - Doris Turner - 08/02/2022 9:57 AM EST Patient is calling in about info below * Telephone Encounter - Nicolasa Wolff Emergency Room Clerk - 07/30/2022 11:11 AM EST pt had 10:30 VV today with provider. Pt has trouble connecting. Pt requesting a phone call. Call back: [phone] documented in this encounterPremier [facility]12-14-2022 Miscellaneous Notes* Telephone Encounter - Ashly Menjivar RN - 07/28/2022 9:13 AM EST Neuro SPINE CARE COORDINATION QUICK NOTE Patient scheduled for virtual visit with CHIP Fine for 07/30/2022 at 10:30 am. Ashly Menjivar, RN [facility] [employer], Spine [facility] * Telephone Encounter - Doris Turner - 07/21/2022 2:06 PM EST Received the following record(s) via fax. -MRI L spine wo, Xray, MRI L spine wo/w(report and CD) Date 06/25/22 Record(s) scanned into pt's chart. Doris Turner documented in this encounterPremier [facility]12-08-2022 Miscellaneous Notes* Telephone Encounter - Adolph Blanco RN - 07/22/2022 11:12 AM EST Noted. Forwarded to HARRY via other Encounter. Adolph Blanco RN * Telephone Encounter - Doris Turner - 07/21/2022 9:32 AM EST Received the following record(s) via fax. -Electromyographic report Date 08/26/21 Record(s) scanned into pt's chart. Doris Turner documented in this encounterPremier Health [facility]05-20-2022 History of Present illness Narrative* Lei Martinez PA-C - 01/01/2022 11:56 AM EDT SPINE SURGERY VIRTUAL New Patient REFERRING PROVIDER: SELF SUBJECTIVE HISTORY OF PRESENT ILLNESS: CHIEF COMPLAINT: chronic neck, low back pain Macie Cluod is a 46 year old female History of multiple cervical and lumbar surgeries as below: ACDF C4-6 (2004) - Dr. Pearson Posterior fusion C2-5 (2019) Dr. Osmar Lucero 2015 lumbar fusion w/ Dr. Pearson 202012-30-[address] Bib Alvarez; revised fusion Main complaint for today's visit is the chronic lower back pain, which radiates down the R buttock/leg No improvement following surgery last December with Dr. Alvarez He has since left the practice and she has not been seen in follow-up Reports the low back pain and R leg pain is debilitating, 05/24 pain Frustrated with her inability to get [...] Martinez PA-C Spine Surgery documented in this encounterPremier Health [facility]04-14-2022 Evaluation note* Encounter Date Diagnosis Assessment Notes [...] note writ ten by Yuri Prince MA, Asthma Educator. Edited and approved by Dr. Vick Maxwell [...] negative findings were considered in medical decision-making. [facility] Other 04-06-2022 Evaluation note* Encounter Date Diagnosis [...] This further complicates the differential diagnostic picture. [facility] Other 05-19-2021 NoteEXAMINATION: XR LUMBAR SPINE (2-3 [...] the back as is subadjacent soft tissue emphysema.[employer] Work Phone: 1(654) 615-756205-19-2021 NoteEXAMINATION: XR LUMBAR SPINE (2-3 VIEWS) CLINICAL [...] Signed by: Lon Moura DO 12/31/20 Final resultSedgwick [facility]05-19-2021 History of Present illness Narrative* Xi Negrete, PT - 12/31/2020 11:21 AM EDT Physical Therapy Med Surg Initial Assessment Facility/Department: [address] [facility] NAME: Macie Cloud : 1975 (45 y.o.) [...] Headache 04/29/2020 Low back pain 04/29/2020 Other manager intermediate (current) drug therapy 04/29/2020 Other chronic pain 04/29/2020 Chest pain, unspecified 04/29/2020 Essential hypertension 04/25/2020 Current smoker 06/30/2017 COPD (chronic obstructive pulmonary disease) ([facility]) 06/30/2017 Past Medical History: Diagnosis Date Anemia Anxiety Chronic back pain Chronic headaches COPD (chronic obstructive pulmonary disease) ([facility]) Depression Emphysema (subcutaneous) (surgical) resulting from a procedure Emphysema of lung ([facility]) Endometriosis Hypertension Restless leg syndrome Substance abuse ([facility]) Past Surgical History: Procedure Laterality Date ANKLE SURGERY Left APPENDECTOMY CERVICAL SPINE SURGERY 2019 SECTION ENDOMETRIAL ABLATION HYSTERECTOMY, VAGINAL LUMBAR FUSION N/A 12/30/2020 REMOVAL HARDWARE L4-5, L3-4 P.L.I.F (POSTERIOR LUMBAR INTERBODY FUSION), L3-4-5 PEDICLE SCREW POSTEROLATERAL FUSION performed by Bib Alvarez MD at [facility] OR SPINE SURGERY Chart Reviewed: Yes Patient [...] Independent (no AD) Transfer Assistance: Independent Active Finished Goods Planner: Yes OBJECTIVE: Vision: Impaired Vision Exceptions: Wears [...] place Goals: Patient goals : go home assistant terminal manager goals jail goal 1: Bed mobility with indep jail goal 2: Functional transfers with indep jail goal 3: Amb 75ft with 2ww and indep jail goal 4: 2 steps with handrail and supervision [facility] (6 CLICK) BASIC MOBILITY AM-[facility] Inpatient Mobility Raw Score : 18 Therapy Time: Individual Time In 916 Time Out 0934 Minutes 17 Xi Negrete, PT, 12/31/20 at 11:24 AM Definitions for [...] assistance to accomplish the task * Anita Corona OTR/Angelina - 12/31/2020 10:50 AM EDT KYLE RASHEED OCCUPATIONAL THERAPY EVALUATION - ACUTE NAME: Macie Cloud : 1975 (45 y.o.) CODE STATUS: Full Code [facility] Date of Service: 12/31/2020 Patient Diagnosis(es): Lumbar spondylosis [M47.816] No chief complaint on file. 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 manager intermediate (current) drug therapy 04/29/2020 Other chronic pain 04/29/2020 Chest pain, unspecified 04/29/2020 Essential hypertension 04/25/2020 Current smoker 06/30/2017 COPD (chronic obstructive pulmonary disease) ([facility]) 06/30/2017 Past Medical History: Diagnosis Date Anemia Anxiety Chronic back pain Chronic headaches COPD (chronic obstructive pulmonary disease) ([facility]) Depression Emphysema (subcutaneous) (surgical) resulting from a procedure Emphysema of lung ([facility]) Endometriosis Hypertension Restless leg syndrome Substance abuse ([facility]) Past Surgical History: Procedure Laterality Date ANKLE SURGERY Left APPENDECTOMY CERVICAL SPINE SURGERY 2019 SECTION ENDOMETRIAL ABLATION HYSTERECTOMY, VAGINAL LUMBAR FUSION N/A 12/30/2020 REMOVAL HARDWARE L4-5, L3-4 P.L.I.F (POSTERIOR LUMBAR INTERBODY FUSION), L3-4-5 PEDICLE SCREW POSTEROLATERAL FUSION performed by Bib Alvarez MD at [facility] OR SPINE SURGERY Restrictions Restrictions/Precautions: Fall Risk (High per mortno) Position Activity Restriction Other position/activity restrictions: Lumbar [...] Independent (no AD) Transfer Assistance: Independent Active Finished Goods Planner: Yes OBJECTIVE: Orientation Status: Orientation Overall Orientation [...] home with family support who presents to [facility] with the above deficits which [...] OTR/L 12/31/2020, 10:50 AM documented in [facility] encounterW[facility] [employer] Phone: 1(750) 142-442605-18-2021 NoteFLUORO FOR SURGICAL PROCEDURES : 12/30/2020 8:47 AM CLINICAL HISTORY: R52 Pain ICD10. Lumbar spine fusion. COMPARISON: None available. Intraoperative fluoroscopy was provided for Dr. Alvarez 's procedure.A total of 11.22 mGy of fluoroscopy was used, with 4 fluoroscopic stills saved. No diagnostic images were obtained. Please see Dr. Alvarez's surgical notes for complete details.[facility] [employer] Phone: 1(233) 738-412605-18-2021 NoteFLUORO FOR SURGICAL PROCEDURES : 12/30/2020 8:47 [...] Signed by: Lon Moura DO 12/30/20 Final resultSedgwick County Memorial HospitalEvaluation note* Diagnosis Post-op pain- Primary Other acute postoperative pain Lumbar spondylosis Lumbosacral spondylosis without myelopathy documented in this encounter [facility] [employer] Phone: evaluation note* Diagnosis Pain Generalized pain documented in this encounter [facility] Phone: evalbcrmeq note* Diagnosis Neck pain, chronic- Primary Cervicalgia Chronic bilateral low back pain with right-sided sciatica documented in this encounter [facility]al[facility] noteNo assessment information availableHenry County Hospital Work Phone: Evaluation noteNo InformationNortLancaster General Hospital to-BBB Other Evaluation note* Diagnosis Spinal stenosis of cervical region- Primary Spinal stenosis in cervical region Pseudarthrosis following spinal fusion Arthrodesis status Lumbar radiculopathy Thoracic or lumbosacral neuritis or radiculitis, unspecified 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 [facility] Diagnosis Spinal stenosis of cervical region Spinal stenosis in cervical region documented in this encounter [facility] note* Diagnosis Onset Date Resolution Status Diarrhea acute Dyspepsia acute Rectal bleeding acute [facility] Work Phone: Evaluation note* Diagnosis Current smoker- Primary Tobacco use disorder Anemia, unspecified type Personal history of other endocrine, nutritional and metabolic disease 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 Chronic pain syndrome Pseudarthrosis following spinal fusion Arthrodesis status documented in this encounter [facility] note* Diagnosis Current smoker- Primary Tobacco use disorder Lumbar radiculopathy Thoracic or lumbosacral neuritis or radiculitis, unspecified 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 Arthrodesis status documented in this encounter [facility]Evalub[facility] note* Diagnosis Cervical myelopathy (HCC)- Primary Cervical spondylosis with myelopathy Cervical radiculopathy Brachial neuritis or radiculitis nos Lumbar radiculopathy Thoracic or lumbosacral neuritis or radiculitis, unspecified 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 Arthrodesis status documented in this encounter [facility] note* Diagnosis Lumbar disc herniation- Primary Displacement of lumbar intervertebral disc without myelopathy documented [facility] this [facility] Diagnosis Lumbar radiculopathy Thoracic or lumbosacral neuritis or radiculitis, unspecified documented in this encounter [facility] note* Diagnosis Chronic cough- Primary Cough Rib pain on left side Inspiratory pain Closed fracture of multiple ribs of left side, initial encounter Chronic cough Cough Rib pain on left side Inspiratory pain [facility] Diagnosis Lumbar radiculopathy- Primary Thoracic or lumbosacral neuritis or radiculitis, unspecified Status post lumbar spinal fusion Arthrodesis status documented [facility]* Diagnosis Lumbar radiculopathy- Primary Thoracic or lumbosacral neuritis or radiculitis, unspecified PHN (postherpetic neuralgia) (CMS/HCC) Herpes zoster with other nervous system complications Status post lumbar spinal fusion Arthrodesis status Cervical myelopathy (CMS/HCC) Cervical spondylosis with myelopathy documented in this encounter [facility]* Diagnosis Claustrophobia (CMS/HCC) Other isolated or specific phobias documented [facility]* Diagnosis Claustrophobia (CMS/HCC)- Primary Other isolated or specific phobias documented in this encounter [facility] HealthcareHistory general Narrative - Reported* Type Description Date [...] History Procedure:septoplasty;Disease: 2001 Hospitalization History see above [facility] Other History general Narrative - Reported* Type [...] History Procedure:septoplasty;Disease: 2001 Hospitalization History see above [facility] Other Hospital course Narrative No data available for this section [facility] Discharge instructions* Instructions* Robin Siu APRN - HARVEST CONTRACTOR - 01/01/2021 dication given may have significant [...] your physician 11) Call your doctor at [phone] for an appointment (or follow up as [...] call OFFICE. The 24- hour phone is [phone] 13) If you are unable to contact [...] through Care Everywhere. * Spine: Anatomy Sketch (Iraqi) * Lumbar Spinal Fusion: Post-op (Iraqi) * oxycodone ([place]raqi) * fentanyl transdermal (device) ([place]ra[place]) * docusate and senna ([place]raqi) * cephalexin ([place]raqi) documented in this encounterUniversity Hospitals Geneva Medical CenterJazz Pharmaceuticals Work Phone: Hospital Discharge instructions Additional Instructions DISCHARGE [...] if you have any problems. -Office number [phone] Work Phone: Hospital Discharge instructions No data available for this section [facility] CenterProgress note No data available for this section [facility] CenterResaint [facility] for [facility] (narrative)* Diagnostic Procedure Only (Routine) - Closed Specialty Diagnoses / Procedures Referred By Contac t Referred To Contact XR IMAGING Diagnoses Spinal stenosis of cervical region Procedures XR SCOLIOSIS PA STAND/LAT 2V RADEX ENTIR THRC LMBR CRV SAC SPI W/SKULL 2/3 VW Too Hughes MD [address] [place] [address] Xr Imaging Referral ID Status Reason Start Date Expiration Date V isits Requested Visits Authorized [id number] Closed Auto-Generate d Referral 09/13/2022 10/13/2023 [address] [facility] for visit NarrativePain Medicine Referral UpdateNoozarks medical center [employer] Other Assessments Diagnosis Pre-op examination Preoperative examination, unspecified Summary Purpose Family History No Family History Records Found Relationship Condition Age at Onset Recorded Date/T david father Pulmonary emphysema Unknown Not Specified Vascular disorder Unknown brother Malignant neoplasm Unknown Relationship Condition Age at Onset Recorded Date/T david father Pulmonary emphysema Unknown Not Specified Vascular disorder Unknown brother Malignant neoplasm Unknown father Unknown Family history of emphysema Unknown Not Specified Unknown Osteoarthritis Unknown Relationship Condition Age at Onset Recorded Date/T david father Pulmonary emphysema Unknown mother Vascular disorder Unknown brother Malignant neoplasm Unknown father Unknown Family history of emphysema Unknown mother Unknown Osteoarthritis Unknown Advance Directives No Advanced Directives Records [...] Date/ Time Advance Directives No April 3:32pm Latest Code Status on File Code Status Date Activated Date Inactivated Comments Full Code 10/11/2023 6:17 PM Code Status History Code Status Date Activated Date Inactivated Comments Full Code 09/27/2023 9:22 PM 09/29/2023 5:04 PM Full Code 08/30/2023 3:33 PM 08/31/2023 1:19 PM Full Code 12/30/2020 4:09 PM 01/01/2021 3:29 PM Date Activated Date Inactivated Comments 10/11/2023 6:17 PM 10/12/2023 2:35 PM Date Activated Date Inactivated Comments 09/27/2023 9:22 PM 09/29/2023 5:04 PM Date Activated Date Inactivated Comments 08/30/2023 3:33 PM 08/31/2023 1:19 PM Date Activated Date Inactivated Comments 12/30/2020 4:09 PM 01/01/2021 3:29 PM Reason for Referral Status Reason Specialty Diagnoses / Procedures Referred By Contact Referred To Contact Pending Review Radiology Diagnoses Pain Procedures Fluoro For Surgical Procedures Bib Alvarez MD [address] [address] Reason lumbar pain radiatin g into right leg, cervical pain radiating into left arm hx of multiple cervical and lumbar surgeries Diagnosis 1 Other spondylosis wi th radiculopathy, lumbar region (M47.26) Diagnosis 2 Cervical spondylosis with radiculopathy (M47.22) Referral Organization [facility] Referring Provider First Name Vick Referring Provider Last Name Alissa Referring Provider Specialty Pain Medici ne Referred Organization [facility] [place] Address [address] [place] [place], [place],[address] Referred Provider Specialty Neurosurgery Referral Priority Routine General Notes Yuri Prince 11/13 04:00:02 PM > please refer the patient to spine center for further treatment Specialty Diagnoses / Procedures Referred By Jorgito valle Referred To Contact MR IMAGING Diagnoses Spinal stenosis of cervical region Procedures MRI CERVICAL SPINE WO IVCON MRI SPINAL CANAL CERVICAL W/O CONTRAST MATRL Too Hughes MD [address] [place] [address] Mr Imaging Referral ID Status Reason Start Date Expiration Date Visits Requested Visits Authorized [id number] Pending Review Auto-Generat ed Referral 09/13/2022 10/13/2023 1 1 Specialty Diagnoses / Procedures Referred By Contac t Referred To Contact XR IMAGING Diagnoses Spinal stenosis of cervical region Procedures XR SCOLIOSIS PA STAND/LAT 2V RADEX ENTIR THRC LMBR CRV SAC SPI W/SKULL 2/3 VW Too Hughes MD [address] [place] [address] Xr Imaging Referral ID Status Reason Start Date Expiration Date V isits Requested Visits Authorized [id number] Closed Auto-Generate d Referral 09/13/2022 10/13/2023 1 1 Reason evaluate and treat f or consideration of Dorsal Column Stimulator Diagnosis 1 Spondylolisthesis of lumbar region (M43.16) Referral Organization [facility] urosurgery Referring Provider First Name Sobeida Referring Provider Last Name Blades Referring Provider Specialty Neurologica l Surgery Referred Organization [facility] Referred Provider Luan Garcia Referred Address [address], [place],[address] Referred Provider Specialty Pain Medicin e Referral Priority Routine Specialty Diagnoses / Procedures Referred By Contac t Referred To Contact Radiology Diagnoses Lumbar radiculopathy Procedures MRI LUMBAR SPINE WO CONTRAST Mady Cook PA [address] [facility] [address] [place] [address] Referral ID Status Reason Start Date Expiration Date Visits Re quested Visits Authorized [id number] Closed 05/04/2024 07/03/2024 1 1 Chief Complaint and Reason for Visit Chief Complaint M Lumbar Radiculopat hy Chief Complaint M Lumbar Radiculopat hy labs Chief Complaint labs Blood in Stool, Diarrhea Reason for Visit Diarrhea Dyspepsia Rectal bleeding Chief Complaint Blood in Stool, Diar holly back/neck pain Reason for Visit Diarrhea Dyspepsia Rectal bleeding Chief Complaint R63.4 fall Chief Complaint R63.4 fall m54.12 r26.81 r29.898 Chief Complaint Back pain Chief Complaint Admit Date sent by urgent care September 13, 2024 3 :16pm Additional Source Comments INFORMATION SOURCE (unrecogn ized section and content) DATE CREATED AUTHOR 12/23/2020 [facility] DATE CREATED AUTHOR AUTHOR'S ORGANIZ ATION 06/16/2021 [facility] DATE CREATED AUTHOR AUTHOR'S ORGANIZ ATION 04/16/2022 [facility] dical Specialist DATE CREATED AUTHOR AUTHOR'S ORGANIZ ATION 10/02/2022 [facility] DATE CREATED AUTHOR AUTHOR'S ORGANIZ ATION 10/15/2022 [facility] DATE CREATED AUTHOR AUTHOR'S ORGANIZ ATION 02/11/2023 [facility] DATE CREATED AUTHOR AUTHOR'S ORGANIZ ATION 06/07/2023 [facility] DATE CREATED AUTHOR AUTHOR'S ORGANIZ ATION 09/30/2023 [facility]spital DATE CREATED AUTHOR AUTHOR'S ORGANIZ ATION 12/02/2024 [facility] dical Specialists EPIC DATE CREATED AUTHOR AUTHOR'S ORGANIZ ATION 01/01/2025 [facility] DATE CREATED AUTHOR AUTHOR'S ORGANIZ ATION 01/19/[address] [facility] Reason for Visit (unrecogniz ed section and content) Status Reason Specialty Diagnoses / Procedures Re ferred By Contact Referred To Contact Diagnoses Lumbar disc herniation PSEUDOARTHROSIS DISC HERNIATION, RADICULOPATHY, SPONDYLOSIS Procedures ND LUMB SP FUSN,POST INTERBDY,EA ADDNL ND ARTHDSIS POST/POSTEROLATRL/POSTINT ERBODY LUMBAR POSTERIOR SEGMENTAL INSTRUMENTATION 3-6 VRT SEG ND INSJ BIOMCHN DEV INTERVERTEBRAL DSC SPC W/ARTHRD AUTOGRAFT SPINE SURGERY LOCAL FROM SAME INCISION ND ALLOGRAFT FOR SPINE SURGERY ONLY STRUCTURAL L3-4 P.L.I.F (POSTERIOR LUMBAR INTERBODY FUSION) L4-5 PEDICLE SCREW/ POSTEROLATERAL FUSION/ 2.5 HRS/ 1 C-ARM/ NERIS TABLE/ S.S.E.P/ CELL SAVERS/ NUVASIVE, PAT AT [facility], 1ST CASE Bib Alvarez MD [address] [address] [facility] Reason Comments New Patient cervical and lumbar [...] SPI W/SKULL 2/3 VW Too Hughes MD [address] [place] [address] Xr Imaging Referral ID Status Reason Start Date Expiration Date V isits Requested Visits Authorized [id number] Closed Auto-Generate d Referral 09/13/2022 10/13/2023 1 1 Reason Comments Schedule Surgery Care Coordination Reason Comments Surgery recsheduling Care Coordination Reason Comments Established Patient Reason Comments Blood Management Specialty Diagnoses / Procedures Referred By Contac t Referred To Contact Diagnoses Spinal stenosis of lumbar region, unspecified whether neurogenic claudication present Spinal stenosis of lumbar region, unspecified whether neurogenic claudication present [M48.061] Procedures ND REMOVAL POSTERIOR SEGMENTAL INSTRUMENTATION ND ARTHRODESIS COMBINED TQ 1NTRSPC LUMBAR ND POSTERIOR NON-SEGMENTAL INSTRUMENTATION ND AUTOGRAFT SPINE SURGERY LOCAL FROM SAME INCISION ND ALLOGRAFT FOR SPINE SURGERY ONLY MORSELIZED ND GIBBONS FACETEC/FORAMOT DRG ARTHRD LUMBAR 1 VRT SGM REMOVAL OF HARDWARE WITH RE-DO L2-3 LAMINECTOMY AND EXTENSTION OF FUSION Prem Ding MD [address] [facility] [address] [place], [place] [address] [facility] [address] [place] [address] Referral ID Status Reason Start Date Expiration Date Visits Re quested Visits Authorized [id number] 1 1 Specialty Diagnoses / Procedures Referred By Contac t Referred To Contact Radiology Diagnoses Lumbar radiculopathy Procedures MRI LUMBAR SPINE WO CONTRAST Mady Cook PA [address] [facility] [address] [place] [address] Referral ID Status Reason Start Date Expiration Date Visits Re quested Visits Authorized [id number] Closed 05/04/2024 07/03/2024 1 1 Specialty Diagnoses / Procedures Referred By Contac t Referred To Contact Physical Therapy Diagnoses Spinal stenosis, lumbar region with neurogenic claudication Procedures ND PHYSICAL THERAPY EVALUATION LOW COMPLEX 20 MINS Prem Ding MD [address] [place] [address] Zoraida Beckman, PT [address] [place] [address] Referral ID Status Reason Start Date Expiration Date Visits Requested Visits Authorized [id number] Authorized Consult and Treat 03/20/2024 04/20/2024 12 12 Reason Onset Date Comments Med Refill 12/12/2024 Ordered Prescriptions (unrec ognized section and content) [...] 15 days. 5 patch 0 01/02/2021 01/17/2021 Prescription Sig Dispensed Refills Start Date End Da te tiZANidine (ZANAFLEX) 2 MG tablet Take 1 tablet by mouth 3 times daily as needed (muscle pain) 40 tablet 0 10/11/2023 10/26/2023 Scheduled Active and Recently Administ ered Medications (unrecognized section and content) Medication Order 12/30/2020 12/31/2020 01/01/2021 amitriptyline (ELAVIL) tablet 100 mg 100 mg, Oral, NIGHTLY, First dose on Tue12/30/20 at 2100 2051 (Given - Provider: Ale Sutton RN - Comment: Per Patient request) 2045 (Given - Provider: Ale Sutton RN - Comment: per patient request) 2100 (Due) amLODIPine (NORVASC) tablet 10 mg(Linked Group [...] Patient/family refused) 09 (Not Given - Provider: Ale Sutton RN - Reason: Patient/family refused)2046 (Not Given - Provider: Ale Sutton RN - Reason: Patient/family refused) 0817 (Given - Provider: Fabiola Nayak RN)2100 (Due) cariprazine hcl (VRAYLAR) capsule 4.5 mg 4.5 mg, Oral, DAILY, First dose on Tue12/31/20 at 0900, Do not crush or break. 0853 (Given - Provider: Ale Sutton RN) 0816 (Given - Provider: Fabiola Nayak RN) ceFAZolin (ANCEF) 2000 mg in dextrose 3 % 50 mL IVPB (duplex) (COMPLETED) 2,000 mg, Intravenous, YOUTH CORRECTIONS OFFICER TO O.R., 1 dose, On Tue12/30/20 at 0800, Pre-op (day of surgery) 0845 (Given - Provider: Sonia Chisholm APRN - MEAT CARRIER - Comment: IVPB slow) ceFAZolin (ANCEF) 2000 [...] Fabiola Nayak RN)1900 (Due - Provider: Usama May, [facility]) cyanocobalamin injection 1,000 mcg 1,000 mcg, Intramuscular, [...] DAILY, First dose on Tue12/30/20 at 2100 205 (Given - Provider: Ale Sutton RN) 0853 (Given - Provider: Ale Sutton RN)2047 (Given - Provider: Ale Sutton RN) 0816 (Given - Provider: Fabiola Nayak RN)2100 (Due) gentamicin (GARAMYCIN) IVPB 80 mg (COMPLETED) 80 mg, Intravenous, YOUTH CORRECTIONS OFFICER TO O.R., 1 dose, On Tue12/30/20 at 0800, Pre-op (day of surgery) 0833 (Given - Provider: ALMA Moore CRNA - Comment: IVPB slow)1006 (Given - Provider: ALMA Moore CRNA) lisinopril (PRINIVIL;ZESTRIL) tablet 20 mg(Linked [...] First dose on Tue12/30/20 at 2100, Post-op 2051 (Given - Provider: Ale Sutton RN) 0854 (Given - Provider: Ale Sutton RN)2047 (Given - Provider: Ale Sutton RN) 0816 [...] Reason: Other - Comment: Patient received PRN flush)2107 (Given - Provider: Ale Sutton RN) 0817 (Given - Provider: Fabiola Nayak RN)2100 (Due) Continuous Medication Order 12/30/2020 12/31/2020 01/01/2021 [...] Izabela Sierra LPN)1151 (Given - Provider: Fabiola Nayak, FATUMA) fentaNYL (SUBLIMAZE) injection 25 mcg (COMPLETED) 25 [...] mg from all sources in 24 hours. 1654 (Given - Provider: Ale Sutton RN) oxyCODONE-acetaminophen [...] 0811 (New Bag - Provider: Kiana Canas, FATUMA) lactated ringers infusion (COMPLETED) Starting on Tue12/30/20 at 0805, For 1 dose, Kiana Daniels: cabinet override 0810 (New Bag - Provider: Kiana Canas, FATUMA) Linked Groups Order Group 1: amLODIPine (NORVASC) tablet 10 mgJump to med 10 mg, Oral, DAILY, First dose on Tue12/30/20 at 1645 And lisinopril (PRINIVIL;ZESTRIL) tablet 20 mgJump to med 20 mg, Oral, DAILY, First dose on Tue12/30/20 at 1645 Scheduled Medication Order 10/10/2023 10/11/2023 10/12/2023 acetaminophen (TYLENOL) tablet 500 mg (COMPLETED) 500 mg, Oral, ONCE, 1 dose, On Tue10/11/23 at 1030, Maximum dose of acetaminophen is 4000 mg from all sources in 24 hours., Pre-op (day of surgery) 1044 (Given - Provider: Kamla Manley RN) amitriptyline (ELAVIL) tablet 50 mg 50 mg, Oral, NIGHTLY, First dose on Tue10/11/23 at 2100, Until Discontinued 2147 (Given - Provider: Lizzy Kwok RN) 2099 (Due) ceFAZolin (ANCEF) 2000 mg in 0.9% sodium chloride 50 mL IVPB (COMPLETED) 2,000 mg, IntraVENous, EVERY 8 HOURS, 2 doses, First dose on Tue10/11/23 at 1845, Last dose on Tue10/12/23 at 0245, Antimicrobial Indications: Surgical Prophylaxis, Post-op 1927 (New Bag - Provider: Lizzy Kwok RN)2000 (Stopped - Provider: Lizzy Kwok RN) 0305 (New Bag - Provider: Lizzy Kwok RN)0341 (Stopped - Provider: Lizzy Kwok RN) ceFAZolin (ANCEF) 2000 mg in 0.9% sodium chloride 50 mL IVPB (COMPLETED) 2,000 mg, IntraVENous, ONCE, 1 dose, On Tue10/11/23 at 1115, Antimicrobial Indications: Surgical Prophylaxis, STAT 1120 (Given - Provider: Jamila Walls APRN - MEAT CARRIER)1506 (Given - Provider: Jamila Walls APRN - MEAT CARRIER) famotidine (PEPCID) 20 mg in sodium chloride (PF) 0.9 % 10 mL injection (COMPLETED) 20 mg, IntraVENous, ONCE, 1 dose, On Tue10/11/23 at 1030, IV Push over minimum of 2 minutes - Dilute with 10 mL NS, Pre-op (day of surgery) 1045 (Given - Provider: Kamla Manley RN) gabapentin (NEURONTIN) capsule 800 mg (COMPLETED) 800 mg, Oral, ONCE, 1 dose, On Tue10/11/23 at 1030, Pre-op (day of surgery) 1044 (Given - Provider: Kamla Manley RN) gabapentin (NEURONTIN) capsule 800 mg 800 mg, Oral, 3 TIMES DAILY, First dose on Tue10/11/23 at 2100, Until Discontinued 2108 (Given - Provider: Lizzy Kwok RN) 0846 (Given - Provider: Eve Solis RN)1400 (Due)2100 (Due) hydroCHLOROthiazide tablet 12.5 mg 12.5 mg, Oral, DAILY, First dose on Tue10/11/23 at 1900, Until Discontinued, Formulary interchange for Lisinopri/HCTZ 20/12.5mg. 1917 (Given - Provider: Lizzy Kwok RN) 0900 (Due) lisinopril (PRINIVIL;ZESTRIL) tablet 20 mg 20 mg, Oral, DAILY, First dose on Tue10/11/23 at 1900, Until Discontinued, Formulary interchange for Lisinopri/HCTZ 20/12.5mg. 1917 (Given - Provider: Lizzy Kwok RN) 0900 (Due) oxyCODONE-acetaminophen (PERCOCET) 5-325 MG per tablet 1 tablet (COMPLETED) 1 tablet, Oral, ONCE, 1 dose, On Tue10/11/23 at 1030, Maximum dose of acetaminophen is 4000 mg from all sources in 24 hours., Pre-op (day of surgery) 1044 (Given - Provider: Kamla Manley RN) pantoprazole (PROTONIX) tablet 40 mg 40 mg, Oral, DAILY BEFORE BREAKFAST, First dose on Tue10/12/23 at 0700, Until Discontinued, Do not crush or break. Substituted for Omeprazole (PRILOSEC). 0602 (Given - Provid er: Lizzy Kwok RN) sodium chloride flush 0.9 % injection 5-40 mL 5-40 mL, IntraVENous, EVERY 12 HOURS SCHEDULED (2 times per day), First dose on Tue10/11/23 at 2100, Until Discontinued, For Line Patency: Peripheral IV = 5 mL; Midline or Central Line = 10 mL/lumen. If following IV push medication, administer flush at same rate as the IV push. Flush volume is determined by type of infusion therapy being given. For non-viscous solutions use: Peripheral IV = 5 mL Midline or Central Line = 10 mL/lumen For viscous solutions (i.e. blood components, parenteral nutrition, contrast media, or after obtaining blood sample) use: Peripheral IV = 10 mL Midline or Central Line = 20 mL/lumen, Post-op 2108 (Not Given - Provider: Lizzy Kwok RN - Reason: IV Fluid Infusing) 0847 (Given - Provider: Eve Solis RN)2100 (Due) tiZANidine (ZANAFLEX) tablet 4 mg (COMPLETED) 4 mg, Oral, ONCE, 1 dose, On Tue10/11/23 at 1030, Pre-op (day of surgery) 1044 (Given - Provider: Kamla Manley RN) Continuous Medication Order 10/10/2023 10/11/2023 10/12/2023 0.9 % sodium chloride infusion IntraVENous, at 100 mL/hr, CONTINUOUS, Starting on Tue10/11/23 at 1845, heplock with good po intake, Post-op 1838 (New Bag - Provider: Donya Varner RN) 0555 (New Bag - Provider: Lizzy Kwok RN)0846 (Stopped - Provider: Eve Solis RN) lactated ringers IV soln infusion (CANCELED) IntraVENous, at 125 mL/hr, CONTINUOUS, Starting on Tue10/11/23 at 1000, Pre-op (day of surgery) 0959 (New Bag - Provider: Kamla Manley RN)1115 (NoRateChange - Provider: Jamila Walls APRN - MEAT CARRIER)1509 (Anesthesia Volume Adjustment - Provider: Jamila Walls APRN - MEAT CARRIER)2100 (Stopped - Provider: Lizzy Kwok RN) PRN Medication Order 10/10/2023 10/11/2023 10/12/2023 0.9 % sodium chloride infusion IntraVENous, at 5-250 mL/hr, PRN, if patient receiving piggyback infusions and maintenance fluids are not ordered OR KVO fluids to protect IV site / prevent frequent line interruptions/ long duration, Starting on Tue10/11/23 at 1817, For piggyback infusion, administer at same rate as piggyback for a total of 25 mL. Enter 25 mL into dose field and piggyback rate into rate field of order. If piggyback is infusing at a rate less than 100 mL/hr, enter 25 mL into dose field and 100 mL/hr into rate field of order. For KVO fluids, enter rate of 20 mL/hr or less into rate field of order., Post-op acetaminophen (TYLENOL) tablet 650 mg 650 mg, Oral, EVERY 4 HOURS PRN, Starting on Tue10/11/23 at 1817, Until Discontinued, Pain Mild (1-3), Pain (1-10), Post-op albuterol sulfate HFA (PROVENTIL;VENTOLIN;PROAIR) 108 (90 Base) MCG/ACT inhaler 2 puff 2 puff, Inhalation, EVERY 6 HOURS PRN, Starting on Tue10/11/23 at 1817, Until Discontinued, Wheezing, Initiate RT Bronchodilator Protocol: Yes - Inpatient Protocol gelatin adsorbable (GELFOAM) sponge (CANCELED) PRN, Starting on Tue10/11/23 at 1257, Intra-op 1257 (Given - Provider: Prem Ding MD) HYDROmorphone HCl PF (DILAUDID) injection 0.5 mg (CANCELED) 0.5 mg, IntraVENous, EVERY 5 MIN PRN, 4 doses, Starting on Tue10/11/23 at 1558, Until Tue10/11/23 at 1816, Pain Severe (7-10), Phase I - Initial therapy for severe pain., PACU only 1631 (Given - Provider: Serina Schmidt RN)1659 (Given - Provider: Serina Schmidt RN) lidocaine-EPINEPHrine 1 %-[id number] injection (CANCELED) PRN, Starting on Tue10/11/23 at 1148, Until Tue10/11/23 at 1539, Intra-op 1148 (Given - Provider: Prem Ding MD) morphine (PF) injection 2 mg(Linked Group 1) 2 mg, IntraVENous, EVERY 2 HOURS PRN, Starting on Tue10/11/23 at 1817, Until Discontinued, Pain Moderate (4-6), If oral and IV narcotics ordered, use oral first and only use IV if oral is ineffective or cannot take oral. Do Not give oral and IV within 1 hour of each other unless specifically ordered., Post-op 2109 (Given - Provider: Lizzy Kwok RN) 0313 (See Alternative - Provider: Lizzy Kwok RN)0846 (See Alternative - Provider: Eve Solis RN) morphine sulfate (PF) injection 4 mg(Linked Group 1) 4 mg, IntraVENous, EVERY 2 HOURS PRN, Starting on Tue10/11/23 at 1817, Until Discontinued, Pain Severe (7-10), If oral and IV narcotics ordered, use oral first and only use IV if oral is ineffective or cannot take oral. Do Not give oral and IV within 1 hour of each other unless specifically ordered., Post-op 2108 (See Alternative - Provider: Lizzy Kwok RN) 0313 (Given - Provider: Lizzy Kwok RN)0846 (Given - Provider: Eve Solis, FATUMA) ondansetron (ZOFRAN) injection 4 mg(Linked Group 2) 4 mg, IntraVENous, EVERY 6 HOURS PRN, Starting on Tue10/11/23 at 1817, Until Discontinued, Nausea, Vomiting, Administer if oral route cannot be used., Post-op ondansetron (ZOFRAN-ODT) disintegrating tablet 4 mg(Linked Group 2) 4 mg, Oral, EVERY 8 HOURS PRN, Starting on Tue10/11/23 at 1817, Until Discontinued, Nausea, Vomiting, Post-op oxyCODONE-acetaminophen (PERCOCET) 5-325 MG per tablet 1 tablet 1 tablet, Oral, EVERY 4 HOURS PRN, Starting on Tue10/11/23 at 1817, Until Discontinued, Pain Moderate (4-6), Maximum dose of acetaminophen is 4000 mg from all sources in 24 hours., Post-op 443 (Given - Provid er: Lizzy Kwok RN) oxyCODONE-acetaminophen (PERCOCET) 5-325 MG per tablet 2 tablet 2 tablet, Oral, EVERY 4 HOURS PRN, Starting on Tue10/11/23 at 1817, Until Discontinued, Pain Severe (7-10), Maximum dose of acetaminophen is 4000 mg from all sources in 24 hours., Post-op 191 (Given - Provider: Lizzy Kwok RN) 0013 (Given - Provider: Lizzy Kwok RN)1108 (Given - Provider: Eve Solis, FATUMA) rOPINIRole (REQUIP) tablet 1 mg 1 mg, Oral, NIGHTLY PRN, Starting on Tue10/11/23 at 1817, Until Discontinued, see chart sod chloride IRR soln 0.9 % 1,000 mL with polymyxin B 500,000 Units (CANCELED) PRN, Starting on Tue10/11/23 at 1256, Intra-op 1256 (Given - Provider: Prem Ding MD) sodium chloride flush 0.9 % injection 5-40 mL 5-40 mL, IntraVENous, PRN, Starting on Tue10/11/23 at 1817, Until Discontinued, Line Care, After every IV line use, For Line Patency: Peripheral IV = 5 mL; Midline or Central Line = 10 mL/lumen. If following IV push medication, administer flush at same rate as the IV push. Flush volume is determined by type of infusion therapy being given. For non-viscous solutions use: Peripheral IV = 5 mL Midline or Central Line = 10 mL/lumen For viscous solutions (i.e. blood components, parenteral nutrition, contrast media, or after obtaining blood sample) use: Peripheral IV = 10 mL Midline or Central Line = 20 mL/lumen, Post-op surgiflo hemostatic matrix (CANCELED) PRN, Starting on Tue10/11/23 at 1258, Intra-op 1258 (Given - Provider: Prem Ding MD)1427 (Given - Provider: Prem Ding MD) thrombin external solution 5000 units (CANCELED) PRN, Starting on Tue10/11/23 at 1258, Intra-op 1258 (Given - Provider: Prem Ding MD) tiZANidine (ZANAFLEX) tablet 2 mg 2 mg, Oral, EVERY 8 HOURS PRN, Starting on Tue10/11/23 at 1817, Until Discontinued, Muscle spasms 2224 (Given - Provider: Lizzy Kwok RN) Linked Groups Order Group 1: morphine (PF) injection 2 mgJump to med 2 mg, IntraVENous, EVERY 2 HOURS PRN, Starting on Tue10/11/23 at 1817, Until Discontinued, Pain Moderate (4-6)
If oral and IV narcotics ordered, use oral first and only use IV if oral is ineffective or cannot take oral. Do Not give oral and IV within 1 hour of each other unless specifically ordered.
Post-op Or morphine sulfate (PF) injection 4 mgJump to med 4 mg, IntraVENous, EVERY 2 HOURS PRN, Starting on Tue10/11/23 at 1817, Until Discontinued, Pain Severe (7-10)
If oral and IV narcotics ordered, use oral first and only use IV if oral is ineffective or cannot take oral. Do Not give oral and IV within 1 hour of each other unless specifically ordered.
Post-op Group 2: ondansetron (ZOFRAN-ODT) disintegrating tablet 4 mgJump to med 4 mg, Oral, EVERY 8 HOURS PRN, Starting on Tue10/11/23 at 1817, Until Discontinued, Nausea, Vomiting, Post-op Or ondansetron (ZOFRAN) injection 4 mgJump to med 4 mg, IntraVENous, EVERY 6 HOURS PRN, Starting on Tue10/11/23 at 1817, Until Discontinued, Nausea, Vomiting
Administer if oral route cannot be used.
Post-op Source Comments (unrecognize d section and content) In the event this informatio n is protected by the Federal Confidentiality of Alcohol and Drug Abuse Patient Records regulations: The Federal rules restrict any use of the information to criminally investigate or prosecute any alcohol or drug abuse patient.[facility] the event this information is protected by the Federal Confidentiality of Alcohol and Drug Abuse Patient Records regulations: The Federal rules restrict any use of the information to criminally investigate or prosecute any alcohol or drug abuse patient.[facility]In the event this information is protected by the Federal Confidentiality of Alcohol and Drug Abuse Patient Records regulations: The Federal rules restrict any use of the information to criminally investigate or prosecute any alcohol or drug abuse patient.[facility]In the event this information is protected by the Federal Confidentiality of Alcohol and Drug Abuse Patient Records regulations: The Federal rules restrict any use of the information to criminally investigate or prosecute any alcohol or drug abuse patient.[facility]In the event this information is protected by the Federal Confidentiality of Alcohol and Drug Abuse Patient Records regulations: The Federal rules restrict any use of the information to criminally investigate or prosecute any alcohol or drug abuse patient.[facility]In the event this information is protected by the Federal Confidentiality of Alcohol and Drug Abuse Patient Records regulations: The Federal rules restrict any use of the information to criminally investigate or prosecute any alcohol or drug abuse patient.[facility] SouthIn the event this information is protected by the Federal Confidentiality of Alcohol and Drug Abuse Patient Records regulations: The Federal rules restrict any use of the information to criminally investigate or prosecute any alcohol or drug abuse patient.[facility]In the event this information is protected by the Federal Confidentiality of Alcohol and Drug Abuse Patient Records regulations: The Federal rules restrict any use of the information to criminally investigate or prosecute any alcohol or drug abuse patient.[facility] SouthIn the event this information is protected by the Federal Confidentiality of Alcohol and Drug Abuse Patient Records regulations: The Federal rules restrict any use of the information to criminally investigate or prosecute any alcohol or drug abuse patient.[facility]In the event this information is protected by the Federal Confidentiality of Alcohol and Drug Abuse Patient Records regulations: The Federal rules restrict any use of the information to criminally investigate or prosecute any alcohol or drug abuse patient.[facility]In the event this information is protected by the Federal Confidentiality of Alcohol and Drug Abuse Patient Records regulations: The Federal rules restrict any use of the information to criminally investigate or prosecute any alcohol or drug abuse patient.[facility] SouthIn the event this information is protected by the Federal Confidentiality of Alcohol and Drug Abuse Patient Records regulations: The Federal rules restrict any use of the information to criminally investigate or prosecute any alcohol or drug abuse patient.[facility]In the event this information is protected by the Federal Confidentiality of Alcohol and Drug Abuse Patient Records regulations: The Federal rules restrict any use of the information to criminally investigate or prosecute any alcohol or drug abuse patient.[facility] SouthIn the event this information is protected by the Federal Confidentiality of Alcohol and Drug Abuse Patient Records regulations: The Federal rules restrict any use of the information to criminally investigate or prosecute any alcohol or drug abuse patient.[facility] SouthIn the event this information is protected by the Federal Confidentiality of Alcohol and Drug Abuse Patient Records regulations: The Federal rules restrict any use of the information to criminally investigate or prosecute any alcohol or drug abuse patient.[facility] SouthIn the event this information is protected by the Federal Confidentiality of Alcohol and Drug Abuse Patient Records regulations: The Federal rules restrict any use of the information to criminally investigate or prosecute any alcohol or drug abuse patient.[facility] SouthIn the event this information is protected by the Federal Confidentiality of Alcohol and Drug Abuse Patient Records regulations: The Federal rules restrict any use of the information to criminally investigate or prosecute any alcohol or drug abuse patient.[facility] Care Teams (unrecognized sec tion and content) School Bus Driver/Mechanic Relationship Specialty Start Date End Date Cristiano Graham Sr. [address] [place] [address] PCP - General Family Practice 12/02/21 Vick Maxwell MD [address] [place] [address] Referring Pain Management 12/02/21 Team Status: Inactive Member Role Status Dates Cristiano Graham DO Primary Care Provider Active Jory Ulrich PA-C Attending Provider Active Team Status: Active Member Role Status Dates Cristiano Graham DO Primary Care Provider Active Team Status: Inactive Member Role Status Dates Cristiano Graham DO Primary Care Provider, Attending Pr rohini Active School Bus Driver/Mechanic Relationship Specialty Start Date End Date Cristiano Graham Sr. [address] [facility] [place] [address] PCP - General Family Medicine 12/02/21 Vick Maxwell MD [address] [place] [address] Referring Pain Management 12/02/21 School Bus Driver/Mechanic Relationship Specialty Start Date End Date Cristiano Graham Sr. [address] [facility] [place] [address] PCP - General Family Medicine 12/02/21 Vick Maxwell MD [address] [place] [address] Referring Pain Management 12/02/21 School Bus Driver/Mechanic Relationship Specialty Start Date End Date Cristiano Graham Sr. [address] [facility] [place] [address] PCP - General Family Medicine 12/02/21 Vick Maxwell MD [address] [place] [address] Referring Pain Management 12/02/21 School Bus Driver/Mechanic Relationship Specialty Start Date End Date Cristiano Graham Sr. [address] [facility] [place] [address] PCP - General Family Medicine 12/02/21 Vick Maxwell MD [address] [place], [place] [id number] Referring Pain Management 12/02/21 School Bus Driver/Mechanic Relationship Specialty Start Date End Date Cristiano Graham Sr. [address] [place] [address] PCP - General Family Medicine 12/02/21 Vick Maxwell MD [address] [place] [address] Referring Pain Management 12/02/21 School Bus Driver/Mechanic Relationship Specialty Start Date End Date Cristiano Graham Sr. [address] [place] [address] PCP - General Family Medicine 12/02/21 Vick Maxwell MD [address] [place] [address] Referring Pain Management 12/02/21 Team Status: Inactive Member Role Status Dates Cristiano Graham DO Primary Care Provider Active Michel Venegas MD Attending Provider Active School Bus Driver/Mechanic Relationship Specialty Start Date End Date Cristiano Graham Sr. [address] [facility] [place] [address] PCP - General Family Medicine 12/02/21 Vick Maxwell MD [address] [place] [address] Referring Pain Management 12/02/21 School Bus Driver/Mechanic Relationship Specialty Start Date End Date Cristiano Graham Sr. [address] [facility] [place] [address] PCP - General Family Medicine 12/02/21 Vick Maxwell MD [address] [place] [address] Referring Pain Management 12/02/21 School Bus Driver/Mechanic Relationship Specialty Start Date End Date Cristiano Graham Sr. [address] [facility] [place] [address] PCP - General Family Medicine 12/02/21 Vick Maxwell MD [address] [place] [address] Referring Pain Management 12/02/21 Team Status: Inactive Member Role Status Dates Cristiano Graham , Primary Care Provider Active Hussain Cristobal DO Emergency Provider Active School Bus Driver/Mechanic Relationship Specialty Start Date End Date Cristiano Graham . [address] [facility] [place] [address] PCP - General Family Medicine 12/02/21 Vick Maxwell MD [address] [place] [address] Referring Pain Management 12/02/21 School Bus Driver/Mechanic Relationship Specialty Start Date End Date Cristiano Graham . [address] [facility] [place] [address] PCP - General Family Medicine 12/02/21 Vick Maxwell MD [address] [place] [address] Referring Pain Management 12/02/21 School Bus Driver/Mechanic Relationship Specialty Start Date End Date Cristiano Graham . [address] [facility] [place] [address] PCP - General Family Medicine 12/02/21 Vick Maxwell MD [address] [place] [address] Referring Pain Management 12/02/21 Team Status: Inactive Member Role Status Dates Cristiano Graham DO Primary Care Provider Active Eloy Mcdaniel Attending Provider Active Team Status: Active Member Role Status Dates PHYSICIAN NO FAMILY Primary Care Provider Active Team Status: Inactive Member Role Status Dates PHYSICIAN NO FAMILY Primary Care Provider Active Bar Johnson PA-C Emergency Provider Active Team Status: Inactive Member Role Status Dates Gail Robert Jose , STEREO EQUIPMENT REPAIRER-BULKING MACHINE OPERATOR-C Attending Provider Active PHYSICIAN NO FAMILY Primary Care Provider Active Team Status: Inactive Member Role Status Dates PHYSICIAN NO FAMILY Primary Care Provider Active Start: September 26, 2023 End: September 27, 2023 Nabil Maya DO Emergency Provider Active Sta rt: September 26, 2023 End: September 27, 2023 School Bus Driver/Mechanic Relationship Specialty Start Date End Date Cristiano Graham Sr., DO [address] [place] [address] PCP - General Family Medicine 07/20/23 School Bus Driver/Mechanic Relationship Specialty Start Date End Date Cristiano Graham Sr., DO [address] [place] [address] PCP - General [facility] Medicine 07/20/23 Team Status: Inactive Member Role Status Dates PHYSICIAN NO FAMILY Primary Care Provider Active Start: September 13, 2024 End: September 13, 2024 Hussain Cristobal DO Emergency Provider Active St art: September 13, 2024 End: September 13, 2024 Goals (unrecognized section and content) Goals may [...] BE BASED ON THE PRIMARY CLINICAL RECORDS. [facility]. provides no warranty or guarantee of the accuracy or completeness of information in this document.
--- NOTE | 2025-03-15 18:42 | ED_ITS ---
HPI HPI - General Adult General Chief complaint: Shortness of Breath/Dyspnea Stated complaint: SOB Time Seen by Provider: 03/15/25 18:26 Source: patient and other Source information: EMS Mode of arrival: ambulance Limitations: physical limitation Limitations comment: SOB History of Present Illness HPI narrative: Patient presents to the emergency department from home by EMS. Per EMS report, patient was laying in the bed and had complained of being too weak to be able to stand back up. In addition patient was tachypneic and noted to be hypoxic on room air at 86%. Patient initially was hypotensive with a systolic of 60 on arrival which was fluid responsive and improved to 90/60. Patient was given DuoNeb treatment by EMS with improvement in oxygenation but patient arrives on nonrebreather with a pulse ox of 90%. Patient remains tachypneic but is mentating appropriately. Patient states she has had cough worsening over the past 3 to 4 days as well as generalized malaise and fatigue. Patient has had associated vomiting and diarrhea as well but states history of Crohn's with similar presentation. Patient primarily complaining of back pain and some anterior chest pain described as a tightness Related Data Home Medications ?Medication ?Instructions ?Recorded ?Confirmed buprenorphine 8 mg-naloxone 2 mg film 09/22/23 sublingual film cyanocobalamin (vitamin B-12) mcg 09/22/23 1,000 mcg/mL injection solution cyclobenzaprine 10 mg tablet mg 09/22/23 dicyclomine 20 mg tablet mg 09/22/23 ibuprofen 600 mg tablet mg 09/22/23 omeprazole 20 mg capsule,delayed mg 09/22/23 release Previous Rx's ?Medication ?Instructions ?Recorded tizanidine 4 mg tablet (Zanaflex) 4 mg PO TID PRN musc le spasticity 05/23/23 5 days #15 tabs methylprednisolone 4 mg tablets in See Rx Instructions .Route 09/22/23 a dose pack (Medrol (Kt)) .COMPLEX #21 ea Allergies Allergy/AdvReac Type Severity Reaction Status Date / Time No Known Drug Allergies Allergy Verified 05/23/23 12:59 Opioid HPI Opioid Management Most Recent Opioid Data: Last Pain Scale 6 09/22/23, 19:24 Review of Systems ROS Constitutional Reports: chills; Denies: fever Cardiovascular Reports: lightheadedness Respiratory Reports: shortness of breath, cough and wheezing Gastrointestinal Reports: nausea, vomiting and diarrhea Musculoskeletal Reports: back pain Neurological Reports: headache PFSH PFSH Social History Smoking status: Current every day smoker Exam Constitutional Vital Signs, click to edit/add: Last Vital Signs Pulse 88 03/15/25 18:50 Resp 30 H 03/15/25 18:50 BP 145/107 H 03/15/25 18:26 Pulse Ox 97 03/15/25 20:30 O2 Del Method BIPAP 03/15/25 20:30 FiO2 50 03/15/25 20:30 General appearance: in distress moderate and respiratory and ill appearing Orientation/consciousness: Yes awake, Yes oriented to person, Yes oriented to place and Yes oriented to time HENIA Common normals: normocephalic Respiratory Effort & inspection: tachypneic and labored Auscultation: rales, rhonchi and wheezes Cardio Common normals: no JVD Course Reevaluation(s) Reevaluation #1: Patient has improved respiratory rate and oxygenation on BiPAP. Patient noted to be hypotensive though hypotension had improved with IV fluid administration but MAP remains below 65 so third liter of IV fluids opened and will reassess pressure and need for vasopressor Time: 20:07 Vital Signs Vital signs: Vital Signs Pulse Rate 80 03/15/25 18:26 Respiratory Rate 32 H 03/15/25 18:26 Blood Pressure 145/107 H 03/15/25 18:26 Pulse Oximetry 96 03/15/25 18:26 Oxygen Delivery Method Nonrebreather 03/15/25 18:26 Pulse Rate 88 03/15/25 18:50 Respiratory Rate 30 H 03/15/25 18:50 Blood Pressure 145/107 H 03/15/25 18:26 Pulse Oximetry 97 03/15/25 20:30 Oxygen Delivery Method BIPAP 03/15/25 20:30 Fraction of Inspired Oxygen 50 03/15/25 20:30 Medical Decision Making MDM Narrative Medical decision making narrative: Patient presented the emergency department with a history of COPD, being worked up currently for Crohn's, chronic back pain and smoker with complaints of ongoing issues of rectal bleeding, shortness of breath with associated cough and congestion worsening over the past several days, acute on chronic back pain, chest tightness and headache. Patient was brought in by EMS who stated patient was hypoxic and hypotensive laying in bed on their arrival. Patient was given IV fluids and breathing treatment and then placed on nonrebreather however patient was still 90% on a nonrebreather so BiPAP was initiated with improvement in patient's oxygenation and breathing effort. Workup today has positive for right lower lobe pneumonia. Laboratory testing shows a leukopenia with an anemia normal platelet count. Guaiac done due to patient's report of rectal bleeding and pending at this time with no shameka blood on exam. Blood cultures were added and patient started on IV antibiotics due to her pneumonia. Patient did have a lactic acidosis with a lactic acid of 8 and an elevated BNP with no known history of heart failure. Patient does not appear fluid overloaded at this time. First troponin is negative. Given patient's hypoxic respiratory failure in the setting of right lower lobe pneumonia, anemia in the setting of ongoing GI bleeding and a leukopenia of unclear significance patient will be transferred to [facility] for further evaluation and care. Discussed the case with hospitalist attending Dr. Corea who accepted the patient to ICU at [facility] Differential Diagnosis Differential Diagnosis: Sepsis, pneumonia, pleural effusion, COPD exacerbation, bronchitis, pneumot Medical Records Medical records reviewed: Yes I reviewed the patient's medical records Lab Data Lab results reviewed: Yes I reviewed the patient's lab results Labs: Lab Results 03/15/25 03/15/25 03/15/25 Range/Units 18:40 18:42 19:10 WBC 1.6 L (4.0-11.0) 10^3/uL RBC 3.04 L (4.20-5.40) 10^6/uL Hgb 8.5 L (12.0-16.0) g/dL Hct 25.9 L (36.0-48.0) % MCV 85.2 (81.0-99.0) fL MCH 28.0 (26.7-34.0) pg MCHC 32.8 (29.9-35.2) g/dL RDW 18.2 H (11.0-15.0) % Plt Count 219 (150-450) 10^3/uL MPV 9.7 (9.5-13.5) fL Seg Neuts % (Manual) 45.0 (43.0-75.0) Band Neutrophils % 3.0 (0-5) % Lymphocytes % (Manual) 49.0 (20.5-60.0) % Monocytes % (Manual) 1.0 L (1.7-12.0) % Eosinophils % (Manual) 0.0 L (0.9-7.0) % Basophils % (Manual) 0.0 L (0.2-2.0) % Metamyelocytes % 2.0 Neutrophils # (Manual) 0.72 L (1.4-6.5) 10^3/uL Band Neutrophils # 0.0 (0.0-0.3) 10^3/uL Lymphocytes # (Manual) 0.78 L (1.20-3.80) 10^3/uL Monocytes # (Manual) 0.01 L (0.30-0.80) 10^3/uL Eosinophils # (Manual) 0.00 (0.00-0.70) 10^3/uL Basophils # (Manual) 0.00 (0.00-0.10) 10^3/uL Metamyelocytes # 0.03 Puncture Site Lr ABG pH 7.382 (7.350-7.450) ABG pCO2 25.5 L (35.0-45.0) mmHg ABG pO2 90.8 (80.0-100.0) mmHg ABG HCO3 15.1 L (22.0-26.0) mmol/L ABG O2 Saturation 97.6 % ABG Base Excess -10.0 L (-2.0-2.0) mmol/L Luis Test Positive (POSITIVE) FiO2 60 % Tidal Volume 852 BiPAP 14/7 Sodium 133 L (136-145) mmol/L Potassium 3.4 L (3.5-5.1) mmol/L Chloride 99 (98-107) mmol/L Carbon Dioxide 19.9 L (21.0-32.0) mmol/L Anion Gap 17.5 BUN 23.0 H (7.0-18.0) mg/dL Creatinine 0.97 (0.55-1.02) mg/dL Est GFR ( Amer) >60 (>=60 mL/min/1.73m^2) Est GFR (Non-Af Amer) >60 (>=60 mL/min/1.73m^2) BUN/Creatinine Ratio 23.7 Glucose 84 (74-106) mg/dL Lactate 8.0 H* (0.4-2.0) mmol/L Calcium 7.3 L (8.5-10.1) mg/dL Magnesium 1.1 L (1.8-2.4) mg/dL Total Bilirubin 0.4 (0.2-1.0) mg/dL AST 31 (15-37) U/L ALT 30 (14-59) U/L Alkaline Phosphatase 52 (46-116) U/L Troponin I High Sens 7.6 (4.0-51.3) pg/mL NT-Pro-B Natriuret Pep 2553.0 H* (<=900.0) pg/mL Total Protein 4.4 L (6.4-8.2) g/dL Albumin 1.8 L (3.4-5.0) g/dL Globulin 2.6 g/dL Albumin/Globulin Ratio 0.7 Lipase <10.0 L (16.0-77.0) U/L Stool Occult Blood Influenza Type A Ag Negative Influenza Type B Ag Negative SARS-CoV-2 Ag (CV2AG) Negative (NEGATIVE) 03/15/25 Range/Units 19:55 WBC (4.0-11.0) 10^3/uL RBC (4.20-5.40) 10^6/uL Hgb (12.0-16.0) g/dL Hct (36.0-48.0) % MCV (81.0-99.0) fL MCH (26.7-34.0) pg MCHC (29.9-35.2) g/dL RDW (11.0-15.0) % Plt Count (150-450) 10^3/uL MPV (9.5-13.5) fL Seg Neuts % (Manual) (43.0-75.0) Band Neutrophils % (0-5) % Lymphocytes % (Manual) (20.5-60.0) % Monocytes % (Manual) (1.7-12.0) % Eosinophils % (Manual) (0.9-7.0) % Basophils % (Manual) (0.2-2.0) % Metamyelocytes % Neutrophils # (Manual) (1.4-6.5) 10^3/uL Band Neutrophils # (0.0-0.3) 10^3/uL Lymphocytes # (Manual) (1.20-3.80) 10^3/uL Monocytes # (Manual) (0.30-0.80) 10^3/uL Eosinophils # (Manual) (0.00-0.70) 10^3/uL Basophils # (Manual) (0.00-0.10) 10^3/uL Metamyelocytes # Puncture Site ABG pH (7.350-7.450) ABG pCO2 (35.0-45.0) mmHg ABG pO2 (80.0-100.0) mmHg ABG HCO3 (22.0-26.0) mmol/L ABG O2 Saturation % ABG Base Excess (-2.0-2.0) mmol/L Luis Test (POSITIVE) FiO2 % Tidal Volume BiPAP Sodium (136-145) mmol/L Potassium (3.5-5.1) mmol/L Chloride (98-107) mmol/L Carbon Dioxide (21.0-32.0) mmol/L Anion Gap BUN (7.0-18.0) mg/dL Creatinine (0.55-1.02) mg/dL Est GFR ( Amer) (>=60 mL/min/1.73m^2) Est GFR (Non-Af Amer) (>=60 mL/min/1.73m^2) BUN/Creatinine Ratio Glucose (74-106) mg/dL Lactate (0.4-2.0) mmol/L Calcium (8.5-10.1) mg/dL Magnesium (1.8-2.4) mg/dL Total Bilirubin (0.2-1.0) mg/dL AST (15-37) U/L ALT (14-59) U/L Alkaline Phosphatase (46-116) U/L Troponin I High Sens (4.0-51.3) pg/mL NT-Pro-B Natriuret Pep (<=900.0) pg/mL Total Protein (6.4-8.2) g/dL Albumin (3.4-5.0) g/dL Globulin g/dL Albumin/Globulin Ratio Lipase (16.0-77.0) U/L Stool Occult Blood Negative Influenza Type A Ag Influenza Type B Ag SARS-CoV-2 Ag (CV2AG) (NEGATIVE) Imaging Data Chest x-ray: Attestation: I personally reviewed and interpreted this imaging study as follows: My impression: Lower lobe pneumonia Radiologist's impression: ITS Impressions Chest X-Ray 03/15/25 18:26 IMPRESSION: RIGHT LUNG CONSOLIDATION WORRISOME FOR PNEUMONIA. RECOMMEND FOLLOW-UP FOLLOWING MEDICAL TREATMENT COURSE TO DOCUMENT RESOLUTION. Impression dictated by: Tim Keller M.D. 03/15/2025 7:24 PM Dictation Location: [facility] Electronically authenticated by: [id number] Y Date: 03/15/2025 19:24 ECG Data Attestation: ?I have reviewed the pertinent ECG results. Critical Care Time Critical Care Time Critical Care Time: Yes Total Critical Care Time: 60 Attestation: 60 minutes of time were spent directly in patient care requiring my full attention Discharge Plan Discharge Chief Complaint: Shortness of Breath/Dyspnea Clinical Impression: Sepsis associated hypotension, Community acquired pneumonia Patient Disposition: [facility] Time of Disposition Decision: 20:24 Discharge Location: [facility] Condition: Serious Mode of Transportation: Other
[2025-03-15] MEDS: IPRATROPIUM/ALBUTEROL SULFATE 3 ML AMPUL.NEB IH (18:50)
[2025-03-15 18:51] LABS: ABG PCO2 25.5 mmHg (35.0-45.0); Allen Test POSITIVE (POSITIVE); BIPAP Pressure 14/7; HCO3 ABG 15.1 mmol/L (22.0-26.0); O2 Mode BIPAP; Oxygen Saturation ABG 97.6 %; PO2 ABG 90.8 mmHg (80.0-100.0); Puncture Site LR; Rate 16
[2025-03-15] MEDS: MAGNESIUM SULFATE IN WATER 2 GM/50 ML PREMIX IV (18:58)
[2025-03-15] MEDS: DIAZEPAM 10 MG/2 ML SYRINGE 2.5 MG IV (19:00)
[2025-03-15] MEDS: 0.9 % SODIUM CHLORIDE 1,000 ML 1000 ML IV (19:00)
[2025-03-15 19:01] LABS: Hematocrit 25.9 % (36.0-48.0); Hemoglobin 8.5 g/dL (12.0-16.0); Mean Corpuscular HGB Conc 32.8 g/dL (29.9-35.2); Mean Corpuscular Hemoglobin 28.0 pg (26.7-34.0); Mean Corpuscular Volume 85.2 fL (81.0-99.0); Platelet Count 219 10^3/uL (150-450); Red Blood Count 3.04 10^6/uL (4.20-5.40); White Blood Count 1.6 10^3/uL (4.0-11.0)
[2025-03-15 19:17] LABS: Alanine Aminotransferase 30 U/L (14-59); Albumin Globulin Ratio 0.7; Albumin Level 1.8 g/dL (3.4-5.0); Alkaline Phosphatase 52 U/L (46-116); Anion Gap 17.5; Aspartate Amino Transferase 31 U/L (15-37); Blood Urea Nitrogen 23.0 mg/dL (7.0-18.0); Calcium 7.3 mg/dL (8.5-10.1); Carbon Dioxide 19.9 mmol/L (21.0-32.0); Chloride 99 mmol/L (98-107); Estimated GFR (African America >60 (>=60 mL/min/1.73m^2); Estimated GFR (Non-African Ame >60 (>=60 mL/min/1.73m^2); Globulin 2.6 g/dL; Glucose 84 mg/dL (74-106); Lipase <10.0 U/L (16.0-77.0); Magnesium 1.1 mg/dL (1.8-2.4); Potassium 3.4 mmol/L (3.5-5.1); Sodium 133 mmol/L (136-145); Total Protein 4.4 g/dL (6.4-8.2)
[2025-03-15] MEDS: METHYLPREDNISOLONE SOD SUCC PF 125 MG/2 ML VIAL IVP (19:24)
[2025-03-15] MEDS: 0.9 % SODIUM CHLORIDE 1,000 ML 100 ML IV (19:24)
[2025-03-15 19:27] LABS: Band Neutrophils Absolute 0.0 10^3/uL (0.0-0.3); Basophils Abs Manual 0.00 10^3/uL (0.00-0.10); Basophils Percent Manual 0.0 % (0.2-2.0); Eosinophils Absolute Manual 0.00 10^3/uL (0.00-0.70); Eosinophils Percent Manual 0.0 % (0.9-7.0); Lymphocytes Absolute Manual 0.78 10^3/uL (1.20-3.80); Lymphocytes Percent Manual 49.0 % (20.5-60.0); Monocytes Absolute Manual 0.01 10^3/uL (0.30-0.80); Monocytes Percent Manual 1.0 % (1.7-12.0); Segmented Neut Absolute Manual 0.72 10^3/uL (1.4-6.5); Segmented Neutrophils % Manual 45.0 (43.0-75.0)
[2025-03-15 19:28] LABS: SARS-CoV-2 Ag NEGATIVE (NEGATIVE)
[2025-03-15 19:28] LABS: Metamyelocytes Absolute Manual 0.03
[2025-03-15 19:31] LABS: Lactate/Lactic Acid 8.0 mmol/L (0.4-2.0); NT Pro B Type Natriuretic Pept 2553.0 pg/mL (<=900.0)
[2025-03-15] MEDS: AZITHROMYCIN 500 MG in 0.9 % SODIUM CHLORIDE 250 ML 250 MG IV (20:35)
[2025-03-15] MEDS: NOREPINEPHRINE BITARTRATE 4 MG in DEXTROSE 5 % IN WATER 250 ML 30.48 MG IV (20:38)
[2025-03-15] MEDS: KETOROLAC TROMETHAMINE 30 MG/ML VIAL 15 MG IVP (21:51)
[2025-03-15 21:57] LABS: Lactate/Lactic Acid 1.9 mmol/L (0.4-2.0)
[2025-03-16 12:35] LABS: A. calcoaceticus-baumannii Cpx NOT DETECTED (NOT DETECTE); Bacteroides fragilis NOT DETECTED (NOT DETECTE); Candida auris NOT DETECTED (NOT DETECTE); Candida glabrata NOT DETECTED (NOT DETECTE); Enterobacterales NOT DETECTED (NOT DETECTE); Enterococcus faecalis NOT DETECTED (NOT DETECTE); Enterococcus faecium NOT DETECTED (NOT DETECTE); Klebsiella aerogenes NOT DETECTED (NOT DETECTE); Klebsiella pneumoniae group NOT DETECTED (NOT DETECTE); Proteus spp. NOT DETECTED (NOT DETECTE); Salmonella spp. NOT DETECTED (NOT DETECTE); Serratia marcescens NOT DETECTED (NOT DETECTE); Staphylococcus epidermidis NOT DETECTED (NOT DETECTE); Staphylococcus lugdunensis NOT DETECTED (NOT DETECTE); Staphylococcus spp. NOT DETECTED (NOT DETECTE); Stenotrophomonas maltophilia NOT DETECTED (NOT DETECTE); Streptococcus pyogenes NOT DETECTED (NOT DETECTE)
[2025-03-16 14:13] LABS: Source Blood; Streptococcus spp. DETECTED (NOT DETECTE)
== END 2025-03-15 22:09 | disposition short-term general hospital (02) ==
PROVIDERS: Physician Assistant; Emergency Provider Emergency Medicine
DX: A41.9 Sepsis, unspecified organism (principal); J18.9 Pneumonia, unspecified organism; F17.200 Nicotine dependence, unspecified, uncomplicated; J96.91 Respiratory failure, unspecified with hypoxia; D64.9 Anemia, unspecified; K62.5 Hemorrhage of anus and rectum; J44.0 Chronic obstructive pulmonary disease with (acute) lower respiratory infection
CPT/HCPCS: 36415; 36600; 51702; 71045; 80048; 80053; 82805; 83605; 83690; 83735; 83880; 84484; 85007; 85027; 87040; 87150; 87804; 87811; 93005; 94640; 94660; 96361; 96365; 96367; 96368; 96375; 99291; G0328; J0456; J0696; J1885; J2919; J3360; J3475

== ENCOUNTER 2025-05-20 09:59 | Emergency (ER) | payer OTHER, SELFPAY ==
--- OUTSIDE RECORDS SUMMARY | 2023-11-18 08:47 | XMS_ITS | Continuity of Care Document ---
Author Organization [facility] Address [address] [place] [address] Phone Care Team Providers Care Geological Engineering Teacher Name Role Phone Esvin Gutierrez DDS Unavailable Unavailable Allergies, Adverse Reactions, Alerts Substance Reaction Status Criticality No Known Allergies Active No Inform ation Medications Medication Instructions Dosage Effective Dates (start - stop) Status Comments Premarin 0.625 mg/gram vaginal cream insert (0.5G) by vaginal route 2-3 times every weekly - Active tinidazole 500 mg tablet take 4 tablet by oral route every day with food 2 G - Active Zithromax 500 mg tablet take 2 tablet by oral route once 1000 MG - Active Procedures Procedure Date Oral Hygiene Instruction Bitewig-single Film Intraoral-periapical 1st Film Limited Oral Eval Extract; Erupted Th/exposted Rt 024 Extract; Erupted Th/exposted Rt 024 PREV VISIT, EST, AGE 40-64 URINALYSIS NONAUTO W/O SCOPE Covid Testing [facility] Advance Directives Directive Yes / No Effective Date File Name No Information Encounters Encounter Description Practice Location Reason(s) For Visit Diagnoses Date Provider Providers Copied on Encounter [facility], [address], [place], [id number], [place] tel:[phone] Dental Clinic er (chief complaint) No Information Brneda Mcallister. [address] [place] [address], [address], [place]. tel:[phone] [facility], [address], [place], [id number], [place] tel:[phone] Dental Clinic Encounter for screening for dental disorders 4 Brenda DDDilip Esvin. [address] [place], [address], [place]. tel: [phone] [facility], [address], [place], [id number], [place] tel:[phone] [facility] No Information - 3 [facility] Jesi. [address], [place], [id number] , [place]. tel: [phone] [facility], [address] [place] [address], [id number], [place] tel:[phone] [facility] No Information 2 [facility] Jesi. [address], [place], [id number] , [place]. tel: [phone] PREV VISIT, EST, AGE 40-64 [facility], [address], [place], [id number], [place] tel:[phone] [facility] annual exam (chief complaint) Encounter for gynecological examination (general) (routine) without abnormal findingsEncounter for screening mammogram for malignant neoplasm of breastBody mass index [BMI] 19.9 or less, adult- STD liefstyle code- STD screenPelvic pain Sep-2 2 [facility] Jesi. [address], [place], [id number] , [place]. tel: [phone] [facility], [address], [place], [id number], [place] tel:[phone] COVID [facility] Encounter for screening for COVID-19 Sep- 1 Evie Campos. [address], [place], [id number] , [place]. tel: [phone] Family History Family Member Type Diagnosis Age At Onset Mother Problem hypertension Mother Problem premature coronary heart dis ease Payers Payer name Insurance type Covered libertarian ID Authorana verduzco(s) D [employer] ABD [id number] Medicaid Wrap - [facility] [id number] Social History Type Description Quantity Date Captured Comments Alcohol Use Details Unknown Caffeine Use Details Unknown Tobacco Use Status No Information Smoking Status No Information Sex Female Sexual Orientation Straight or heterosexual Gender Identity Female Vital Signs Date / Time: Height Weight BMI Pulse Rate Blood Pressure Temperature Respiratory Rate Body Surface Area Head Circumference Head Circ. Percentile Wt./[place]. Percentile BMI percentile Pulse Ox Inhaled Ox 12:50 PM 67.00 in 56.699 kg (125.00 lbs) 19.5 8 kg/m eter (2) 86 /min 143/87 mm[Hg] 97.10 F Chief Complaint And Reason For Visit From encounter dated '11/18/2023 12:47'. er (chief complaint) Reason For Referral Reason For Referral No Information Plan Of Treatment Date Type Action Status Goal Influenza vaccine. Due on Ap due Goal Zoster vaccine (). Due on due Goal HPV. Due on due Goal Hepatitis C screening. Due o n due Goal CT-Colonography. Due on due Goal FIT. Due on due Goal Depression screening. Due on due Goal Tdap Vaccine. Due on 2023 due Goal FIT-DNA. Due on due Goal PRAPARE ASSESSMENT. Due on A due Goal Lipid panel. Due on due Goal Hep A. Due on du e Goal Colonoscopy. Due on 024 due Goal Unhealthy drug use screening . Due on due Goal Tdap. Due on due Goal FOBT. Due on due Goal Tdap. Due on due Goal PRAPARE ASSESSMENT. Due on O ct due Goal Influenza vaccine. Due on Oc t due Goal Depression screening. Due on due Goal Lipid panel. Due on due Goal Depression screening. Due on due Goal Influenza vaccine. Due on Se p due Goal Lipid panel. Due on due Goal Tdap. Due on due Goal PRAPARE ASSESSMENT. Due on S ep due Goal Dietary management education , guidance, and counseling completed Referral Ordered: MAMMOGRAM, SCREENING ordered History Of Present Illness Encounter Date Complaint History Of Prese nt Illness er annual exam : 4. Urszula ty: Term: 3. spontaneous: 1. Livin. Negative for dysmenorrhea and menorrhagia. Negative for: breast discharge.Negative for Hormone replacement therapy. Pertinent negatives include anxiety and depression. Additional information: Patient is here for annual exam and STI screen. states she had unprotected sex with a new partner after being abstinent for 2 years. now c/o vaginal discharge with irritation. State she had a telehealth visit and they treated her for GC and Trich, but her symptoms have remained. She would like to be treated for chlamydia today while waiting for the results. She is not on HRT and declines Dexascan to rule out osteoporosis. States she knows she is at risk, but it runs in her family anyway C/O lower pelvic pain, but was seen in urgent care for possible UTI and was told she did not have one. Functional Status Date Functional Assessmen t No Information Instructions Date Instruction Additional Infor liam Urine culture was se nt to lab. If negative and pain continues encouraged to follow up with PCP. Patient states understanding. Related to Pelvic pain Cervical cultures se nt to lab. Patient to call in 1 week for results Stressed the use of condoms to prevent STDs. Condoms given to patient in office today. Treated with Zithromx as wet prep had TNTC WBC and vaginal discharge had a greenish yellowish color. IF culture are negative will then consider atrophic vaginitis Related to - STD liefstyle code Encouraged monthly B SE. Recommend calcium 1000mg QD. Encouraged good dietary intake and exercise. Laboratory specimens sent to lab. Patient to call in 2 weeks if desires results.Discussed risk of osteoporosis given Hysterectomy at the age of 26yr, positive smoker and underweight, causation female. Patient declines Dexascan. She also declines mammogram, but order was given to her just in case she changes her mind Related to Encounter for gynecological examination (general) (routine) without abnormal findings Dietary management e ducation, guidance, and counseling Related to Body mass index [BMI] 19.9 or less, adult Giving encouragement to exercise Related to Body mass index [BMI] 19.9 or less, adult Assessments Type Assessment Date No Information Patient Care Teams Name Effective Dates (start - stop) Status Members No Information
--- OUTSIDE RECORDS SUMMARY | 2024-01-17 05:00 | XMS_ITS ---
Author Organization [facility] Address [address] [place] [address] Care Team Providers Care Cotton Weigher Name Role Phone Dr. Davion Edmondson Primary Care Provider REASON FOR VISIT EXT Encounters Encounter Location Date Provider Diagnosis [facility] [address] [place] [address] 01/17/2024 Davion Edmondson Plan Of Treatment No Information Progress Notes * RGEGG ROY ADOB:1975 (49 yo F)Acc No.[id number]:01/17/2024 Patient: Ana ASHLEY GREGG Thacker Provider: Pauly Edmondson DDS :1975 A ge:48 Y S ex:Female Date:01/17/2024 [facility] Subjective: * Chief Complaints: * 1 . EXT. * Medical History: Objective: * Vitals: Assessment: Plan: * Treatment: * Images: * Electronic signature of Dr. Davion Edmondson , [facility], [id number] on 05/20/2025 at 10:23 AM EDT Sign off status: Pending * Provider: Pauly Edmondson DDS Date: 0 01/17/2024 Generated for Aman robb/Moses/eTransmitting on: 1 10:23 AM EDT
--- OUTSIDE RECORDS SUMMARY | 2024-01-17 11:45 | XMS_ITS ---
Author Organization [facility] Address [address] [place] [address] Care Team Providers Care Rubber Molder Name Role Phone Dr. Davion Edmondson Primary Care Provider [phone] REASON FOR VISIT FILLING Encounters Encounter Location Date Provider Diagnosis [facility] [address] [place] [address] 01/17/2024 Davion Edmondson Plan Of Treatment No Information Progress Notes * GREGG ROY ADOB:1975 (49 yo F)Acc No.[id number]:01/17/2024 Patient: Ana ASHLEY GREGG Thacker Provider: Pauly Edmondson DDS :1975 A ge:48 Y S ex:Female Date:01/17/2024 [facility] [facility] Subjective: * Chief Complaints: * 1 . FILLING. * Medical History: Objective: * Vitals: Assessment: Plan: * Treatment: * Images: * Electronic signature of Dr. Davion Edmondson , [facility], [id number] on 05/20/2025 at 10:23 AM EDT Sign off status: Pending * Provider: Pauly Edmondson DDS Date: 0 01/17/2024 Generated for Aman robb/Moses/eTransmitting on: 1 10:23 AM EDT
--- OUTSIDE RECORDS SUMMARY | 2025-05-06 15:00 | XMS_ITS | Encounter Summary ---
Author Organization [facility] Address [address] [place] [address] Care Team Providers Care Habilitation Specialist Name Role Phone Unavailable Primary Care Provider Unavailabl e Encounter Details Date Type Department Care Team (Latest Contact Info) Description 05/06/2025 3:00 PM EDT Ancillary Procedure [facility] [address] [facility] [address] [place] [address] Shortness of breath Social History Tobacco Use Types Packs/Day Years Used Date Smoking Tobacco: Every Day Cigarettes Smokeless Tobacco: Never Alcohol Use Standard Drinks/Week Comments Yes 0 (1 standard drink = 0.6 oz pur e alcohol) Comments Unknown Sex and Gender Information Value Date Recorded Sex Assigned at Not on file Legal Sex Female 6:43 PM EDT Gender Identity Not on file Sexual Orientation Not on file documented as of this encounter Plan of Treatment Upcoming Encounters Date Type Department Care Team (Late st Contact Info) Description 06/20/2025 1:00 PM EST Clinical Support [facility] [address] [facility] [address] [place] [address] Jeison Power MD [address] [facility] [address] [address] documented as of this encounter Procedures Procedure Name Priority Date/Time Associated Diagnosis Comments XR CHEST 2 VIEWS Routine 05/06/2025 3:03 PM EDT Shortness of breath documented in this encounter Results * XR chest 2 views (05/06/2025 3:03 PM EDT) Anatomical Region Laterality Modality Chest Radiographic Meryl ging 05/07/2025 10:4 9 AM EDT Impressions 05/07/2025 10:51 AM EDT Interval improvement but persistence of right upper lobe consolidation. Continued surveillance is recommended. ELECTRONICALLY SIGNED BY: Lon Moura DO Narrative 05/07/2025 10:51 AM EDT EXAMINATION: XR CHEST 2 VIEWS HISTORY: shortness of breath TECHNIQUE: Frontal and lateral views of the chest. COMPARISON: Radiographs April 08, 2025, March 27, 2025, September 14, 2024, and May 22, 2024 FINDINGS: Cardiomediastinal silhouette is within normal limits. Mild interval improvement but persistence of right upper lobe consolidation. Left lung is clear. No pneumothorax. No acute osseous abnormality. Procedure Note Lon Moura DO - 05/07/2025 EXAMINATION: XR CHEST 2 VIEWS HISTORY: shortness of breath TECHNIQUE: Frontal and lateral views of the chest. COMPARISON: Radiographs April 08, 2025, March 27, 2025, August, and May 22, 2024 FINDINGS: Cardiomediastinal silhouette is within normal limits. Mild intervalimprovement but persistence of right upper lobe consolidation. Left lungis clear. No pneumothorax. No acute osseous abnormality. IMPRESSION: Interval improvement but persistence of right upper lobe consolidation.Continued surveillance is recommended. ELECTRONICALLY SIGNED BY: Lon Moura DO Eloy Mcdaniel MD IMG XR PROCEDURES Final Result documented in this encounter Visit Diagnoses Diagnosis Shortness of breath documented in this encounter
--- OUTSIDE RECORDS SUMMARY | 2025-05-19 12:45 | XMS_ITS | Encounter Summary ---
Author Organization [facility] Address [address] [place] [address] Care Team Providers Care Inspector Soldering Name Role Phone Unavailable Primary Care Provider Unavailabl e Encounter Details Date Type Department Care Team (Late st Contact Info) Description 05/19/2025 12:45 PM EDT Office Visit [facility] [address] [address] [place] [phone] Lalito Crum, [address] [place] [phone] Acute recurrent maxillary sinusitis (Primary Dx); Acute [...] 10:04 AM EDT documented in this encounter Plan of Treatment Upcoming Encounters Date Type Department Care Team (Late st Contact Info) Description 06/20/2025 1:00 PM EST Clinical Support [facility] [address] [facility] [address] [place] [address] Jeison Power MD [address] [facility] [address] [address] documented as of this encounter Visit Diagnoses Diagnosis Acute recurrent maxillary sinusitis- Primary Acute bronchitis, unspecified organism documented in this encounter
[2025-05-20] VITALS (8 sets, daily range): BP systolic 120–142; BP diastolic 72–92; PULSE 85–94; TEMP 36.4; O2SAT 90–100; BMI 17.5
--- OUTSIDE RECORDS SUMMARY | 2025-05-20 10:23 | XMS_ITS | Clinical Summary ---
Author Organization [employer] Address [id number] [address] [place] [address] Care Team Providers Care Healthcare Sales Representative Name Role Phone Cristiano De Leon DO Primary Care Provider [phone] Social History Tobacco Use Types Packs/Day Years Used Date Smoking Tobacco: Never Assessed Childcare Answer Date Recorded Childcare Unknown 01/22/2019 Employment Answer Date Recorded Employment Unknown 01/22/2019 Comments Unknown Sex and Gender Information Value Date Recorded Sex Assigned at Not on file Legal Sex Female 12:32 PM EDT Gender Identity Not on file Sexual Orientation Not on file Plan of Treatment Health Maintenance Due Date Last Done Comments Depression Screening 1985 Tobacco Screening 1985 Adult BMI Screening 1991 DTaP,Tdap and Td Vaccines (1 - Tdap) 1992 Pap Smear 1994 Zoster (Shingles) Vaccine (1 of 2) 2023 Influenza Vaccine 04/15/2025 Medical Devices Not on file Care Teams Healthcare Sales Representative Relationship Specialty Start Date End Date Cristiano De Leon DO PCP - General 03/22/13
--- OUTSIDE RECORDS SUMMARY | 2025-05-20 10:23 | XMS_ITS | Encounter Summary ---
Author Organization [facility] Address [address] [facility] [[email or web address] [address] Care Team Providers Care Actor Understudy Name Role Phone Unavailable Primary Care Provider Unavailabl e Encounter Details Date Type Department Care Team (Latest Contact Info) Description 05/06/2025 Travel Social History Tobacco Use Types Packs/Day Years [...] Description 06/20/2025 1:00 PM EST Clinical Support [facility] [address] [facility] [address] [place] [address] Jeison Power MD [address] [place] [address] documented as of this encounter Visit Diagnoses Not on filedocumented in this encounter
--- OUTSIDE RECORDS SUMMARY | 2025-05-20 10:23 | XMS_ITS | Encounter Summary ---
Author Organization [facility] Address [address] [place] [address] Care Team Providers Care Farm Reporter Name Role Phone Unavailable Primary Care Provider Unavailabl e Reason for Referral * Injection (Routine) - Authorized Specialty Diagnoses / Procedures Referred By Jorgito valle Referred To Contact Neurology Diagnoses Myalgia Other nerve root and plexus disorders Procedures GA OFFICE/OUTPATIENT [facility] 60 MINUTES Jeison Power MD [address] [facility] [address] [place] [address] Phone: tel: fax: Jeison Power MD [address] [facility] [address] [place] [address] Phone: tel: fax: Referral ID Status Reason Start Date Expiration Date Visits Requested Visits Authorized [id number] Authorized Perform Procedure 04/25/2025 11/05/2025 6 1 Encounter Details Date Type Department Care Team (Late st Contact Info) Description 05/09/2025 Telephone [facility] [address] [address] Maryjane Duong, RT. R Social History Tobacco Use Types Packs/Day Years [...] on file documented as of this encounter Miscellaneous Notes * Telephone Encounter - RT. Franck Anderson - 05/09/2025 9:51 [place] [id number] & [id number] documented in this encounter Plan of Treatment Upcoming Encounters Date Type Department Care Team (Late st Contact Info) Description 06/20/2025 1:00 PM EST Clinical Support [facility] [address] [facility] [address] [place] [address] Jeison Power MD [address] [facility] [address] [address] Scheduled Referrals Name Type Priority Associated Diagnoses Order Schedule Ambulatory referral to Neurology Outpatient Referral Routine Myalgia Other nerve root and plexus disorders Expected: 05/09/2025 (Approximate), Expires: 11/06/2025 documented as of this encounter Visit Diagnoses Diagnosis Other nerve root and plexus disorders- Primary Myalgia Unspecified myalgia and myositis documented in this encounter
--- OUTSIDE RECORDS SUMMARY | 2025-05-20 10:23 | XMS_ITS | Encounter Summary ---
Author Organization [facility] Address [address] [facility], [address] [place] [address] Care Team Providers Care Cloud Operations Engineer Name Role Phone House Sr., Cristiano CARBONE Primary Care Provider + Reason for Referral * Imaging (Routine) - Authorized Specialty Diagnoses / Procedures Referred By Contac t Referred To Contact Radiology Diagnoses Cubital tunnel syndrome of both upper extremities Cervical radiculopathy Cervical spinal stenosis Procedures CT CERVICAL SPINE W CONTRAST Prem Fontanez MD [address] [place] [address] Phone: tel: fax: Referral ID Status Reason Start Date Expiration Date V isits Requested Visits Authorized [id number] Authorized 05/12/2025 05/07/2026 1 1 * Imaging (Routine) - Authorized Specialty Diagnoses / Procedures Referred By Contac t Referred To Contact Radiology Diagnoses Cubital tunnel syndrome of both upper extremities Cervical radiculopathy Cervical spinal stenosis Procedures FL MYELOGRAM CERVICAL S&I Prem Fontanez MD [address] [address] Phone: tel: fax: Referral ID Status Reason Start Date Expiration Date V isits Requested Visits Authorized [id number] Authorized 05/07/2025 05/07/2026 1 1 Reason for Visit * Reason Onset Date Comments Orders 05/07/[address] order wanted Encounter Details Date Type Department Care Team (Late st Contact Info) Description 05/07/2025 Telephone [facility] Neurosurgery [address] [facility], [address] [place] [address] Prem Fontanez MD [address] [place] [address] Orders (Cervical myelogram CT order wanted) Social History Tobacco Use Types Packs/Day Years Used Date Smoking Tobacco: Every Day Cigarettes 1.5 39.8 Started: 08/15/1985 Smokeless Tobacco: Current Alcohol Use Standard Drinks/Week Comments Yes 5 (1 standard drink = 0.6 oz pur e alcohol) occas [facility] Utilities Answer Date Recorded In the past 12 months has [employer], gas, oil, or water [employer] threatened to shut off services in your home? No 10/11/2023 AUDIT-C Answer Date Recorded Q1: How often do you have a drink containing alc ohol? 2-4 times a month 09/27/2023 Q2: How many drinks containi ng alcohol do you have on a typical day when you are drinking? 1 or 2 09/27/2023 Q3: How often do you have si x or more drinks on one occasion? Never 09/27/2023 Overall Financial Resource Strain (CARDIA) Answe r Date Recorded How hard is it for you to pa y for the very basics like food, housing, medical care, and heating? Not hard at all 10/27/2020 PHQ-2 Answer Date Recorded PHQ-9 Total Score 0 10/27/2020 Hunger Vital Sign Answer Date Recorded Within the past 12 months, y ou worried that your food would run out before you got the money to buy more. Never true 10/11/19 24 Within the past 12 months, t he food you bought just didn't last and you didn't have money to get more. Never true 10/11/2023 PRAPARE - Transportation Answer Date Re corded In the past 12 months, has l ack of transportation kept you from medical appointments or from getting medications? No 09/16 In the past 12 months, has l ack of transportation kept you from meetings, work, or from getting things needed for daily living? No 10/11/2023 Housing Stability Vital Sign Answer Cam e Recorded In the last 12 months, was t here a time when you were not able to pay the mortgage or rent on time? No 10/11/2023 In the last 12 months, how many places have you lived? 1 10/11/2023 In the last 12 months, was t here a time when you did not have a steady place to sleep or slept in a detention (including now)? No 10/11/2023 Interpersonal Safety ([facility] HRSN) Answer Date Recorded How often does anyone, yudy galan family and friends, physically hurt you? Never 10/11/2023 How often does anyone, yudy galan family and friends, scream or curse at you? Not on file 10/11/2023 How often does anyone, yudy galan family and friends, insult or talk down to you? Not on file 10/11/2023 How often does anyone, yudy galan family and friends, threaten you with harm? Not on file 10/11/2023 Food Insecurity Answer Date Recorded Within the past 12 months, y ou worried that your food would run out before you got the money to buy more. 1 10/11/2023 Within the past 12 months, t he food you bought just didn't last and you didn't have money to get more. 1 10/11/2023 Interpersonal Safety Domain Source: IP Abuse Scr eening Answer Date Recorded Read-Only, Retired: Physical Abuse Denies 10/11/2023 Read-Only, Retired: Verbal Abuse Denies 10/11/2023 Read-Only, Retired: Emotional abuse Denies 10/11/2023 Read-Only, Retired: Financial Abuse Denies 10/11/2023 Read-Only, Retired: Sexual abuse Denies 10/11/2023 Comments No Sex and Gender Information Value Date Recorded Sex Assigned at Female 01/13/2025 11:19 PM EDT Legal Sex Female 6:34 PM EST Gender Identity Not on file Sexual Orientation Not on file documented as of this encounter Plan of Treatment Upcoming Encounters Date Type Department Care Team (Late st Contact Info) Description 05/22/2025 2:00 PM EDT Appointment [facility] Special Procedures [address] [place] [address] Radiologist, Stv Interventional myelogram-cervical , scheduled with pt, 1230pm arrival, outpt surg, no thinners, full prep, dx g56.3, m54.12, m48.02 05/22/2025 3:00 PM EDT Appointment [facility] CT Scan [address] [place] [address] myelogram-cervical , scheduled with pt, 1230pm arrival, outpt surg, no thinners, full prep, dx g56.3, m54.12, m48.02 06/03/2025 3:15 PM EDT Initial consult [facility] Pain Management [address] [place] [address] Felix Camarena DO [address] [place] [address] M54.16 (ICD-10-CM) - Radiculopathy, lumbar region Scheduled Orders Name Type Priority Associated Diagnoses Orde r Schedule FL MYELOGRAM CERVICAL S&I Imaging Routine Cubital tunnel syndrome of both upper extremities Cervical radiculopathy Cervical spinal stenosis Expected: 05/07/2025, Expires: 05/07/2026 CT CERVICAL SPINE W CONTRAST Imaging Routine Cubital tunnel syndrome of both upper extremities Cervical radiculopathy Cervical spinal stenosis Expected: 05/07/2025, Expires: 05/07/2026 documented as of this encounter Visit Diagnoses Diagnosis Cubital tunnel syndrome of both upper extremities- Primary Cervical radiculopathy Brachial neuritis or radiculitis nos Cervical spinal stenosis Spinal stenosis in cervical region documented in this encounter Care Teams Cloud Operations Engineer Relationship Specialty Start Date End Date Cristiano De Leon Sr., DO [address] [place] [address] PCP - General Family Medicine 07/20/23 documented as of this encounter
--- OUTSIDE RECORDS SUMMARY | 2025-05-20 10:23 | XMS_ITS | Encounter Summary ---
Author [facility] Address [address] [facility], [address] [place] [address] Care Team Providers Care Branch Manager Trainee Name Role Phone House Sr., Cristiano CARBONE Primary Care Provider + Encounter Details Date Type Department Care Team (Late st Contact Info) Description 01/14/2025 Orders Only [facility] Neuroscience [place], [facility] Neurosurgery [address] [facility], [address] [place] [id number] Provider, MD Chandni Social History Tobacco Use Types Packs/Day Years Used Date Smoking Tobacco: Every Day Cigarettes 1.5 39.8 Started: 08/15/1985 Smokeless Tobacco: Current Alcohol Use Standard Drinks/Week Comments Yes 5 (1 standard drink = 0.6 oz pur e alcohol) occas [facility] Utilities Answer Date Recorded In the past 12 months has [employer], gas, oil, or water [employer] threatened to shut off services in your [...] place to sleep or slept in a assisted (including now)? No 10/11/2023 Interpersonal Safety ([facility] HRSN) Answer Date Recorded How often [...] Info) Description 05/22/2025 2:00 PM EDT Appointment [facility] Special Procedures [address] [place] [address] Radiologist, Stv Interventional myelogram-cervical , scheduled with pt, 1230pm arrival, outpt surg, no thinners, full prep, dx g56.3, m54.12, m48.02 05/22/2025 3:00 PM EDT Appointment [facility] CT Scan [address] [place] [address] myelogram-cervical , scheduled with pt, 1230pm arrival, outpt surg, no thinners, full prep, dx g56.3, m54.12, m48.02 06/03/2025 3:15 PM EDT Initial consult [facility] Management [address] [place] [address] Felix Camarena, DO [address] [place] [address] M54.16 (ICD-10-CM) - Radiculopathy, lumbar region documented as of this encounter Procedures Procedure Name Priority Date/Time Associated Diagnosis Comments EMG Routine 10/24/2024 2:51 PM EDT EMG Routine 10/17/2024 2:53 PM EST documented in this encounter Results * EMG (10/24/2024 2:51 PM EDT) us Historical Provider NEUROLOGY ORDERABLES Genet l Result * EMG (10/17/2024 2:53 PM EST) us Historical Provider NEUROLOGY ORDERABLES Genet l Result documented in this encounter Visit Diagnoses Not on filedocumented in this encounter Care Teams Branch Manager Trainee Relationship Specialty Start Date End Date Cristiano De Leon Sr., DO [address] [place] [address] PCP - General Family Medicine 07/20/23 documented as of this encounter
--- OUTSIDE RECORDS SUMMARY | 2025-05-20 10:23 | XMS_ITS | Encounter Summary ---
Author Organization [facility] Address [address] [facility], [address] [place] [address] Care Team Providers Care Center Aisle Cashier Name Role Phone House Sr., Cristiano CARBONE Primary Care Provider + Encounter Details Date Type Department Care Team (Late st Contact Info) Description 04/23/2024 Orders Only [facility] Neuroscience [place], [facility] Neurosurgery [address] [place] [address], [address] [place] [phone] Provider, MD Chandni Social History Tobacco Use Types Packs/Day Years Used Date Smoking Tobacco: Every Day Cigarettes Smokeless Tobacco: Current Alcohol Use Standard Drinks/Week Comments Yes 0 (1 standard drink = 0.6 oz pur e alcohol) occas [facility] Utilities Answer Date Recorded In the past 12 months has [employer], gas, oil, or water company threatened to [...] place to sleep or slept in a usp (including now)? No 10/11/2023 Interpersonal Safety ([facility] HRSN) Answer Date Recorded How often does [...] Info) Description 05/22/2025 2:00 PM EDT Appointment [facility] Special Procedures [address] [place] [address] Radiologist, St Interventional myelogram-cervical , scheduled with pt, 1230pm arrival, outpt surg, no thinners, full prep, dx g56.3, m54.12, m48.02 05/22/2025 3:00 PM EDT Appointment [facility] CT Scan [address] [place] [address] myelogram-cervical , scheduled with pt, 1230pm arrival, outpt surg, no thinners, full prep, dx g56.3, m54.12, m48.02 06/03/2025 3:15 PM EDT Initial consult [facility] [address] [place] [address] Felix Camarena, [address] [place] [address] T64.16 (ICD-10-CM) - Radiculopathy, lumbar region documented as of this encounter Procedures Procedure Name Priority Date/Time Associated Diagnosis Comments XR LUMBAR SPINE (2-3 VIEWS) Routine 03/26/2024 3:54 PM EDT documented in this encounter Results * XR LUMBAR SPINE (2-3 VIEWS) (03/26/2024 3:54 PM EDT) Anatomical Region Laterality Modality T-spine, L-spine, Pelvis Radiogr aphic Imaging us Historical Provider MD [facility] DERABLES Final Result documented in this encounter Visit Diagnoses Not on filedocumented in this encounter Care Teams Center Aisle Cashier Relationship Specialty Start Date End Date Cristiano De Leon Sr., DO [address] [place] [address] PCP - General Family Medicine 07/20/23 documented as of this encounter
--- OUTSIDE RECORDS SUMMARY | 2025-05-20 10:23 | XMS_ITS | Patient Health Record ---
Author Organization [facility] Address [address] [place] [address] Care Team Providers Care Food Service Hotel Runner Name Role Phone Dr. Davion Edmondson Primary Care Provider Reason For Referral No Information Social History Tobacco Use: Social History Observation Description Date Details (start date - stop date) Current Smoker NA - NA Tobacco Screen: Question Answer Notes Are you a: current smoker How often do you smoke cigarettes? every day How many cigarettes a day do you smoke? 31 or mo re How soon after you wake up do you smoke your fir st cigarette? within 5 min Are you interested in quitting? Not ready to john t Alcohol Screening: Question Answer Notes Did you have a drink contain ing alcohol in the past year? Yes How often did you have a dri nk containing alcohol in the past year? Monthly or less (1 point) How many drinks did you have on a typical day when you were drinking in the past year? 3 or 4 (1 point) Points 2 Interpretation Negative Depression Screening (PHQ-9): Question Answer Notes Little interest or pleasure in doing things Ashley ral days Feeling down, depressed, or hopeless Several day s Trouble falling or staying a sleep, or sleeping too much More than half the days Feeling tired or having little energy Nearly froylan ry day Poor appetite or overeating Nearly every day Feeling bad about yourself-o r that you are a failure or have let yourself or your family down Several days Trouble concentrating on thi ngs, such as reading the newspaper or watching television Several days Moving or speaking so slowly that other people could have noticed. Or the opposite being so fidgety or restless that you have been moving around a lot more than usual Nearly every day Thoughts that you would be b teddy off , or of hurting yourself in some way Not at all Total Score 15 Intepretation Moderately severe depression Problems Problem Type SNOMED Code ICD Code Onset Dates Problem Status W/U Status Risk Notes Problem Essential hypertension (90271690) Essential hypertension (I10) Active confirmed Plan Of Treatment No Information Insurance Providers Payer Name Payer Address Payer Phone Subscriber Number Group Number Insured Name Patient Relationship to Insured Coverage Start Date Coverage End Date zDENTAL DQ CARESOURC E-termed [address] [facility] [place] [address] [id number] GREGG ROY Self - patient is the insured 2 3 Dental CareSourc e DQ [place] [address] [facility] [place] [address] [id number] GREGG ROY Self - patient is the insured 3 zDental Medicaid ABD after [employer] E-termed 22 [address] [place] [address] [phone] [id number] GREGG ROY Self - patient is the insured 2 3 Dental Wrap ABD CareSourc e [address] [place] [address] [id number] GREGG ROY Self - patient is the insured 3 Medical (General) History Surgical History Surgery Date(Month/Year) BACK, NECK AND LEFT FOOT SURGERY ENDOMETRIOSIS, Ex Lap x2 APPY Hysterectomy Hospitalization History Reason Date(Month/Year) SEE ABOVE
--- OUTSIDE RECORDS SUMMARY | 2025-05-20 10:23 | XMS_ITS | Encounter Summary ---
Author Organization [facility] Address [address] [place] [address] Care Team Providers Care Muck Boss Name Role Phone Unavailable Primary Care Provider Unavailabl e Encounter Details Date Type Department Care Team (Late Contact Info) Description 10/18/2024 Orders Only [facility] [address] [facility] [address] [place] [address] Shana Kelsey R. EEG. T. Lumbar radiculopathy; Status post lumbar spinal fusion; Cervical myelopathy (HCC) Social History Tobacco Use Types Packs/Day Years [...] 06/20/2025 1:00 PM EST Clinical Support [facility] [address] [facility] [address] [place] [address] Jeison Power MD [address] [facility] [address] [place] [address] [phone] Pending Results Name Type Priority Associated Diagnoses Date /Time EMG 2 Extremities Neurology Routine Lumbar radiculopathy Status post lumbar spinal fusion Cervical myelopathy (HCC) 12/25/2024 9:07 AM EDT documented as of this encounter Procedures Procedure Name Priority Date/Time Associated Diagnosis Comments [facility]B EMG 2 EXTREMITIES Routine 10/17/2024 10:30 AM EST Lumbar radiculopathy Status post lumbar spinal fusion documented in this encounter Results * EMG 2 Extremities (10/17/2024 10:30 AM EST) Jeison Power MD NEUROLOGY ORDERABLES Edited R esult - Final documented in this encounter Visit Diagnoses Diagnosis Lumbar radiculopathy Thoracic or lumbosacral neuritis or radiculitis, unspecified Status post lumbar spinal fusion Arthrodesis status Cervical myelopathy (HCC) Cervical spondylosis with myelopathy documented in this encounter
--- OUTSIDE RECORDS SUMMARY | 2025-05-20 10:23 | XMS_ITS | Encounter Summary ---
Author Organization [facility] Address [address] [place] [address] Care Team Providers Care Division Director Name Role Phone Unavailable Primary Care Provider Unavailabl e Encounter Details Date Type Department Care Team (Late Contact Info) Description 12/31/2024 Results Follow-Up [facility] [address] D[address]AZ [address] [place] [phone] Jeison Power MD [address] [place] [address] [phone] MR lumbar spine wo contrast Social History Tobacco Use Types Packs/Day Years [...] Encounters Date Type Department Care Team (Late Contact Info) Description 06/20/2025 1:00 PM EST Clinical Support [facility] [address] [facility] [place] [address] Jeison Power MD [address] [place] [phone] documented as of this encounter Visit Diagnoses Not on filedocumented in this encounter
--- OUTSIDE RECORDS SUMMARY | 2025-05-20 10:23 | XMS_ITS | Encounter Summary ---
Author Organization [facility] Address [address] [facility] [place] [place] [address] Care Team Providers Care Aquatic Director Name Role Phone Unavailable Primary Care Provider Unavailabl e Encounter Details Date Type Department Care Team (Latest Contact Info) Description 05/19/2025 Travel Social History Tobacco Use Types Packs/Day [...] Clinical Support [facility] [address] [facility] [address] [place] [address] Jeison Power MD [address] [place] [address] documented as of this encounter Visit Diagnoses Not on filedocumented in this encounter
--- OUTSIDE RECORDS SUMMARY | 2025-05-20 10:23 | XMS_ITS | Clinical Summary ---
Author Organization [facility] Address [address], [address] [place] [address] Care Team Providers Care Ortho Tech Name Role Phone Moises Perez DO, Charles P Primary Care Provider + Allergies No known active allergies Medications omeprazole (PRILOSEC) 20 MG delayed release capsule 2 capsules Daily 09/14/2020 Active rOPINIRole (REQUIP) 1 MG tablet Take 1 tablet by mouth nightly as needed Active gabapentin (NEURONTIN) 800 MG tablet Take 1 tablet by mouth 3 times daily. Active lisinopril-hydr oCHLOROthiazide (PRINZIDE;ZESTO RETIC) 20-12.5 MG per tablet Take 1 tablet by mouth daily 09/20/2022 Active albuterol sulfate HFA (PROVENTIL;VENT ROSEANNE;PROAIR) 108 (90 Base) MCG/ACT inhaler Inhale 2 puffs into the lungs every 6 hours as needed for Wheezing Active amitriptyline (ELAVIL) 100 MG tablet Take 0.5 tablets by mouth nightly Active buprenorphine-n aloxone (SUBOXONE) 8-[address] film [address] 2.5 Film under the tongue daily. Active cyanocobalamin 1000 MCG/ML injection Inject 1 mL into the muscle every 7 days 01/04/2024 Active tiZANidine (ZANAFLEX) 4 MG tablet Take 1 tablet by mouth every 8 hours as needed 12/25/2023 Active QUEtiapine (SEROQUEL) 200 MG tablet Take 1 tablet by mouth 2 times daily 04/20/2024 Active Active Problems Problem Noted Date Diagnosed Date Lumbar disc herniation 10/11/2023 Psoas abscess 09/29/2023 Neural foraminal stenosis of lumbar spine 2023 Spinal stenosis of lumbar re gion with neurogenic claudication 12/23/2022 Lumbar spondylosis 12/30/2020 Iron deficiency anemia 11/11/2020 B12 deficiency 11/11/2020 History of fusion of cervical spine 10/27/2020 Right flank pain 10/27/2020 Depression 10/27/2020 Weakness 09/03/2020 Paresthesia of skin 09/03/2020 Headache 04/29/2020 Low back pain 04/29/2020 Other residential (current) drug therapy 0 Pain syndrome, chronic 04/29/2020 Chest pain, unspecified 04/29/2020 Essential hypertension 04/25/2020 Smoker 06/30/2017 Overview (10/27/2020): Added secondary to documentation in Social History. COPD (chronic obstructive pulmonary disease) Encounters Date Type Department Care Team Description 05/07/2025 Telephone [facility] Neurosurgery [address] [place] [address], [address] [place] [address] Prem Fontanez MD Orders (Cervical myelogram CT order wanted) 04/17/2025 Telephone [facility], [facility] Neurosurgery [address] [place] [address], [address] [place] [address] Mady Clay PA Patient update from Last 3 Months Family History Medical History Relation Name Comments Arthritis Father Alzheimer's Disease Maternal Aunt Rebecca Liu Neuropathy Maternal Uncle Darrel Liu Arthritis Mother Coronary Art Dis Mother High Blood Pressure Mother Relation Name Status Comments Father Maternal Aunt Rebecca Liu Alive Maternal Uncle Darrel Liu Alive Mother Social History Tobacco Use Types Packs/Day Years Used Date Smoking Tobacco: Every Day Cigarettes 1.5 39.8 Started: 08/15/1985 Smokeless Tobacco: Current Tobacco Cessation:Ready to Q uit: Not Asked; Counseling Given: Not Answered Alcohol Use Standard Drinks/Week Comments Yes 5 (1 standard drink = 0.6 oz pur e alcohol) occas [facility] Utilities Answer Date Recorded In the past 12 months has th e electric, gas, oil, or water company threatened [...] place to sleep or slept in a snf (including now)? No 10/11/2023 Interpersonal Safety ([facility] HRSN) Answer Date Recorded How often [...] on file Sexual Orientation Not on file Last Filed Vital Signs Vital Sign Reading Time Taken Comments Blood Pressure 165/79 01/14/2025 2:59 PM EDT Pulse 85 01/14/2025 2:59 PM EDT Temperature 36.3 C (97.3 F) 10/12/2023 6:05 AM EST Respiratory Rate 16 05/18/2024 12:10 PM EDT Oxygen Saturation 96% 10/12/2023 11:08 AM EST Inhaled Oxygen Concentration - - Weight 55.3 kg (122 lb) 01/14/2025 2:59 PM EDT Height 170.2 cm (5' 7 ) 01/14/2025 2:59 PM EDT Body Mass Index 19.11 01/14/2025 2:59 PM EDT Plan of Treatment Upcoming Encounters Date Type Department Care Team (Late st Contact Info) Description 05/22/2025 2:00 PM EDT Appointment [facility] Special Procedures [facility] [place] [address] Radiologist, Stv Interventional myelogram-cervical , scheduled with pt, 1230pm arrival, outpt surg, no thinners, full prep, dx g56.3, m54.12, m48.02 05/22/2025 3:00 PM EDT Appointment [facility] CT Scan [address] [place] [address] myelogram-cervical , scheduled with pt, 1230pm arrival, outpt surg, no thinners, full prep, dx g56.3, m54.12, m48.02 06/03/2025 3:15 PM EDT Initial consult [facility] Pain Management [address] [place] [address] Felix Camarena, [address] [place], [place] [id number] U14.16 (ICD-10-CM) - Radiculopathy, lumbar region Health Maintenance Due Date Last Done Comments Depression Monitoring 1985 HIV screen 1988 Hepatitis C screen 1991 Hepatitis B vaccine (1 of 3 - 19+ 3-dose series) 1992 Pneumococcal 50+ years Vacci ne (1 of 2 - PCV) 1992 Breast cancer screen 2013 Lipids 2013 Colonoscopy 2018 Colorectal Cancer Screen 2018 FIT/FOBT: Average risk 2018 Fecal-DNA (Cologuard): [place] ge risk 2018 Sigmoidoscopy/CT colonography 2018 Shingles vaccine (1 of 2) 2023 Lung Cancer Screening &/or Counseling 08/04/2023 08/04/2022 Flu vaccine (#1) 03/15/2025 04/24/2020, 04/08/2019, 05/03/2017 COVID-19 Vaccine (1 - 2023-2 5 season) 2025 DTaP/Tdap/Td vaccine (2 - Td or Tdap) 04/08/2029 04/08/2019 Hepatitis A vaccine Aged Out No longe r eligible based on patient's age to complete this topic Hib vaccine Aged Out No longer eligi ble based on patient's age to complete this topic Meningococcal (ACWY) vaccine Aged Out No longer eligible based on patient's age to complete this topic Meningococcal B vaccine Aged Out No l onger eligible based on patient's age to complete this topic Polio vaccine Aged Out No longer elig ible based on patient's age to complete this topic Medical Devices Implanted Type Area Carpenter Mine Device Identifier Shelf Expiration Date Model / Serial / Lot Graft Bne Sub 15ml 1.7-10mm Canc Chip Morselized Frz Dry - [id number] Implanted:Qty: 1 on 12/30/2020 by Bib Vincent MD at [facility] N/A: Spine Lumbar [employer]- 07/01/2023 [id number] / [id number] / Graft Bne Sub 15ml 1.7-10mm Canc Chip Morselized Frz Dry - [id number] Implanted:Qty: 1 on 12/30/2020 by Bib Vincent MD at [facility] N/A: Spine Lumbar [employer]- 07/01/2023 [id number] / [id number] / Kit Bne Grft Sm Rhbmp-2 4.2mg Inj 5ml Contain Ndl 20ga Implanted:Qty: 1 on 12/30/2020 by Bib Vincent MD at [facility] N/A: Spine Lumbar [employer]- 05/15/2021 [id number] / / [id number] Spacer Spnl [id number] 4deg L Peek Post Lum Intbdy Fus Implanted:Qty: 2 on 12/30/2020 by Bib Vincent MD at [facility] N/A: Spine Lumbar [facility]- [id number] / / Connector Spnl Crss Lo Prof Adj Reline-O 5.5 X 45-65 Mm Implanted:Qty: 1 on 12/30/2020 by Bib Vincent MD at [facility] N/A: Spine Lumbar [facility] [facility]- [id number] / / Screw Spnl L55mm Od6mm 2s Polyax Reline O Implanted:Qty: 6 on 12/30/2020 by Bib Vincent MD at [facility] N/A: Spine Lumbar [employer] [id number] / / Screw Spnl Dia5.5mm Opn Tulip Deborah Reline Implanted:Qty: 6 on 12/30/2020 by Bib Vincent MD at [facility] N/A: Spine Lumbar [employer] [id number] / / Seven Spnl Lordtc 5.5x80 Mm Ti Reline-O Implanted:Qty: 2 on 12/30/2020 by Bib Vincent MD at [facility] N/A: Spine Lumbar [employer] [id number] / / Top Clsr Dia55 6mm Std For Thorlum Sacroiliac Fix Sys - [id number] Implanted:Qty: 6 on 10/11/2023 by Prem Fontanez MD at [facility] N/A: Spine Lumbar [employer] [id number] / / Seven Spnl Crv 5.5x75 Mm Prebent Ti Vitality - [id number] Implanted:Qty: 1 on 10/11/2023 by Prem Fontanez MD at [facility] N/A: Spine Lumbar [employer] [id number] / / Seven Spnl Crv 5.5x85 Mm Prebent Ti Vitality - [id number] Implanted:Qty: 1 on 10/11/2023 by Prem Fontanez MD at [facility] N/A: Spine Lumbar [employer] [id number] / / Screw Spnl L55mm Dia6.5mm Polyax Thorlum Sacroiliac Vitality - [id number] Implanted:Qty: 6 on 10/11/2023 by Prem Fontanez MD at [facility] N/A: Spine Lumbar [employer] [id number] / / Graft Bne Sub 15gm Grn Ca Compnd Ptty And Silicate Base Inj - [id number] Implanted:Qty: 1 on 10/11/2023 by Prem Fontanez MD at [facility] N/A: Spine Lumbar [employer]WD 02/21/2026 [id number] / / [id number] Procedures Procedure Name Priority Date/Time Associated Diagnosis Comments CT CHEST WO CONTRAST Routine 08/04/2022 from Last 3 Months or Most Recently Relevant to Health Maintenance Results * CT CHEST WO CONTRAST (08/04/2022) Anatomical Region Laterality Modality Chest Computed Tomogra phy [facility] Historical Provider IMG CT ORDERABLES Final Result from Last 3 Months or Most Recently Relevant to Health Maintenance Insurance [employer] Advance Directives * Full Code (Latest Code Status on File) Date Activated Date Inactivated Comments 10/11/2023 6:17 PM 10/12/2023 2:35 PM * Full Code Date Activated Date Inactivated Comments 09/27/2023 9:22 PM 09/29/2023 5:04 PM * Full Code Date Activated Date Inactivated Comments 08/30/2023 3:33 PM 08/31/2023 1:19 PM * Full Code Date Activated Date Inactivated Comments 12/30/2020 4:09 PM 01/01/2021 3:29 PM Care Teams Ortho Tech Relationship Specialty Start Date End Date Cristiano De Leon Sr., DO [address] [place] [address] PCP - General Family Medicine 07/20/23
--- OUTSIDE RECORDS SUMMARY | 2025-05-20 10:23 | XMS_ITS | Encounter Summary ---
Author Organization [facility] Address [id number] [place] [address] Care Team Providers Care Household Appliances Salesperson Name Role Phone Cristiano De Leon DO Primary Care Provider [phone] Encounter Details Date Type Department Care Team (Late st Contact Info) Description 03/15/2017 Telephone [facility] [address] [place] [phone] Joanie Galo, A Social History Tobacco Use Types Packs/Day Years Used Date Smoking Tobacco: Never Assessed Comments Unknown Sex and Gender Information Value Date Recorded Sex Assigned at Not on file Legal Sex Female 12:32 PM EDT Gender Identity Not on file Sexual Orientation Not on file documented as of this encounter Plan of Treatment Not on file documented as of this encounter Visit Diagnoses Not on filedocumented in this encounter Care Teams Household Appliances Salesperson Relationship Specialty Start Date End Date Cristiano De Leon DO PCP - General 03/22/13 documented as of this encounter
--- OUTSIDE RECORDS SUMMARY | 2025-05-20 10:23 | XMS_ITS | Encounter Summary ---
Author Organization [facility] Address [address] [place] [address] Care Team Providers Care Reports Developer Name Role Phone Unavailable Primary Care Provider Unavailabl e Encounter Details Date Type Department Care Team (Late st Contact Info) Description 04/30/2025 Telephone [facility] [place] [address] [place] [address] Shana Kelsey R. EEG. T. Social History Tobacco Use Types Packs/Day Years [...] encounter Miscellaneous Notes * Telephone Encounter - Lindsey Jarrett NP - 05/06/2025 8:57 AM EDT Sent her Opbeat message of Tono's response. * Telephone Encounter - Jeison Power MD - 05/01/2025 3:32 PM EDT Lets wait until pain management in [place] * Telephone Encounter - Joanie Shah MA - 05/01/2025 3:25 PM EDT Patient states she already sees a pain doctor in [place]. She states she has an appt with them on June 03. She didn't know if you were able to get her in prior to that for another round of injections she states they have already wore off since she got them * Telephone Encounter - Jeison Power MD - 04/30/2025 11:38 AM EDT Epi with brady * Telephone Encounter - Kylie Mar EEGGregg Jacob - 04/30/2025 11:24 AM EDT Pt had triggers on and would like to know if Dr. Power can schedule her for an epidural. documented in this encounter Plan of Treatment Upcoming Encounters Date Type Department Care Team (Late st Contact Info) Description 06/20/2025 1:00 PM EST Clinical Support [facility] [address] [place] [address] Jeison Power MD [address] [facility] [place], [place] [id number] documented as of this encounter Visit Diagnoses Diagnosis Lumbar spondylosis- Primary Lumbosacral spondylosis without myelopathy Spinal stenosis of lumbar region with neurogenic claudication Lumbar radiculopathy Thoracic or lumbosacral neuritis or radiculitis, unspecified documented in this encounter
--- OUTSIDE RECORDS SUMMARY | 2025-05-20 10:23 | XMS_ITS | Clinical Summary ---
Author Organization [facility] Address [address] [place] [address] Care Team Providers Care Supervisor Machine Workers Name Role Phone Unavailable Primary Care Provider Unavailabl e Allergies No known active allergies Medications amitriptyline (Elavil) 100 MG tablet Take 50 mg by mouth at bedtime Active Buprenorphine HCl-Naloxone HCl (Suboxone) 8-2 MG SL film DISSOLVE 2.5 films SUBCUTANEOUSLY (UNDER THE SKIN) ONCE DAILY Active cyanocobalamin (Vitamin B-12) 1000 MCG/ML injection ADMINISTER 1ML INTRAMUSCULARLY EVERY 30 DAYS Active gabapentin (Neurontin) 800 MG tablet Take 800 mg by mouth in the morning and 800 mg in the evening and 800 mg before bedtime. Active lisinopril-hydro CHLOROthiazide 20-12.5 MG tablet 07/22/20 23 Active metroNIDAZOLE (Metrocream) 0.75 % cream APPLY a thin layer to breakouts on face once or twice a day 03/12/20 24 Active mometasone (Elocon) 0.1 % cream APPLY a thin layer to face TWICE DAILY up to 3 (THREE) weeks then NEEDED FOR ITCHING 03/12/20 24 Active omeprazole (PriLOSEC) [address] capsule Daily 09/26/19 24 Active QUEtiapine (SEROquel) 200 MG tablet Take 1 tablet by mouth in the morning and 1 tablet before bedtime. 04/20/20 24 Active rOPINIRole (Requip) 1 MG tablet TAKE 1 TABLET BY MOUTH DAILY 1-3 HOURS BEFORE BEDTIME Active tiZANidine (Zanaflex) 4 MG tablet TAKE 3 TABLETS BY MOUTH AT BEDTIME NEEDED Active albuterol HFA 90 mcg/act inhalerIndicatio ns:Inspiratory pain,Closed fracture of multiple ribs of left side, initial encounter Inhale 2 puffs every 4 (four) hours if needed for wheezing or shortness of breath 18 g 05/22/20 24 Active atomoxetine (Strattera) 60 MG capsuleIndicatio ns:ADD (attention deficit disorder) without hyperactivity Take 1 capsule (60 mg) by mouth Daily Swallow capsule whole; do not open. If opened accidentally, do not touch eyes; wash hands immediately (product is an eye irritant). 90 capsule 3 10/20/19 25 026 Active diazePAM (Valium) 5 MG tabletIndication s:Claustrophobia Take 1 tablet (5 mg) by mouth 1 (one) time if needed for anxiety (1 po 30 minutes prior to MRI and may repeat x 1) for up to 2 doses 2 tablet 11/21/19 25 Active LORazepam (Ativan) 0.5 MG tabletIndication s:Claustrophobia Take 1 tablet (0.5 mg) by mouth every 12 (twelve) hours if needed for anxiety for up to 1 day 2 tablet 12/26/19 25 Active cyclobenzaprine (Flexeril) 10 MG tabletIndication s:Status post lumbar spinal fusion Take 1 tablet (10 mg) by mouth in the morning and 1 tablet (10 mg) in the evening and 1 tablet (10 mg) before bedtime. 90 tablet 2 04/25/20 25 025 Active doxycycline (Vibramycin) 100 MG capsuleIndicatio ns:Acute recurrent maxillary sinusitis,Acute bronchitis, unspecified organism Take 1 capsule (100 mg) by mouth in the morning and 1 capsule (100 mg) before bedtime. Do all this for 10 days. Take with at least 8 ounces (large glass) of water, do not lie down for 30 minutes after. 20 capsule 05/19/20 25 025 Active cyclobenzaprine (Flexeril) 10 MG tabletIndication s:Status post lumbar spinal fusion Take 1 tablet (10 mg) by mouth in the morning and 1 tablet (10 mg) in the evening and 1 tablet (10 mg) before bedtime. Do all this for 10 days. 30 tablet 2 10/20/19 25 025 [facility], or Other Facility Administered Medication Ordered Dose Route Frequency Start Date End Date Status dexAMETHasone sod phos (Decadron) injection 4 mgIndications:Myalgia,Other nerve root and plexus disorders 4 mg IJ Once 05/09/2025 04/25/2025 Ended bupivacaine (Marcaine) 0.5 % injection 5 mgIndications:Myalgia,Other nerve root and plexus disorders 5 mg IJ Once 05/09/2025 04/25/2025 Ended Active Problems Problem Noted Date Diagnosed Date Myalgia 05/09/2025 Other nerve root and plexus disorders 05/09/2025 Anxiety 10/24/2024 Anxiety and depression 10/24/2024 Chronic neck pain with history of cervical spina l surgery 10/24/2024 Heartburn 10/24/2024 Thoracic outlet syndrome 10/24/2024 Cervical myelopathy 09/27/2024 PHN (postherpetic neuralgia) 09/27/2024 Lumbar radiculopathy 03/20/2024 Status post lumbar spinal fusion 03/20/2024 Lumbar disc herniation 10/11/2023 Psoas abscess 09/29/2023 Neural foraminal stenosis of lumbar spine 2023 Spinal stenosis of lumbar re gion with neurogenic claudication 12/23/2022 Lumbar spondylosis 12/30/2020 B12 deficiency 11/11/2020 Iron deficiency anemia 11/11/2020 Right flank pain 10/27/2020 Paresthesia of skin 09/03/2020 Weakness 09/03/2020 Chest pain, unspecified 04/29/2020 Headache 04/29/2020 Low back pain 04/29/2020 Other terminal operator (current) drug therapy 0 Essential hypertension 04/25/2020 COPD (chronic obstructive pulmonary disease) Current smoker 06/30/2017 Overview (10/24/2024): Added secondary to documentation in Social History. Encounters Date Type Department Care Team Description 05/19/2025 12:45 PM EDT Office Visit [facility] [address] [place] [address] Lalito Crmu DO Acute recurrent maxillary sinusitis (Primary Dx); Acute bronchitis, unspecified organism 05/19/2025 Travel 05/09/2025 Telephone [facility] [address] [place] [phone] Maryjane Duong, RT. R 05/06/2025 3:00 PM EDT Ancillary Procedure [facility] [address] [place] [phone] Shortness of breath 05/06/2025 Travel 04/30/2025 Telephone [facility] [address] [place] [phone] Shana Kelsey R. EEGGregg T. 04/25/2025 10:00 AM EDT Clinical Support [facility] [address] [place] [phone] Jeison Power MD Other nerve root and plexus disorders (Primary Dx); Status post lumbar spinal fusion; Myalgia 04/25/2025 Bamboo flowsheet [facility] [address] [place] [address] Jeison Power MD 04/25/2025 Travel 04/08/2025 2:30 PM EDT Ancillary Procedure [facility] [address] [place] [phone] Chest pain, unspecified 04/08/2025 Travel 03/27/2025 2:15 PM EDT Ancillary Procedure [facility] [address] [place] [phone] Shortness of breath 03/27/2025 Travel from Last 3 Months Social History Tobacco Use Types Packs/Day Years Used Date Smoking Tobacco: Every Day Cigarettes Smokeless Tobacco: Never Tobacco Cessation:Ready to Q uit: Not Asked; Counseling Given: Not Answered Alcohol Use Standard Drinks/Week Comments Yes 0 [...] (112 lb) 05/19/2025 12:52 PM EDT Height 171.5 cm (5' 7.5 ) 04/25/2025 10:04 AM ED T Body Mass Index 17.28 04/25/2025 10:04 AM EDT Plan of Treatment Upcoming Encounters Date Type Department Care Team (Late st Contact Info) Description 06/20/2025 1:00 PM EST Clinical Support [facility] [place] [facility] [address] [place] [address] Jeison Power MD [address] [place] [id number] Procedures Procedure Name Priority Date/Time Associated Diagnosis Comments XR CHEST 2 VIEWS Routine 05/06/2025 3:03 PM EDT Shortness of breath XR CHEST 2 VIEWS Routine 04/08/2025 2:43 PM EDT Chest pain, unspecified XR CHEST 2 VIEWS Routine 03/27/2025 2:29 PM EDT Shortness of breath from Last 3 Months Results * XR chest 2 views (05/06/2025 3:03 PM EDT) Only the most recent of3 resultswithin the time period is included. Anatomical Region Laterality Modality Chest Radiographic Meryl [...] Mcdaniel MD IMG XR PROCEDURES Final Result from Last 3 Months Insurance [employer] MED[employer]
--- OUTSIDE RECORDS SUMMARY | 2025-05-20 10:23 | XMS_ITS | Encounter Summary ---
Author Organization [facility] Address [address] [place] [address] Care Team Providers Care Oracle Programmer Analyst Name Role Phone Unavailable Primary Care Provider Unavailabl e Encounter Details Date Type Department Care Team (Late Contact Info) Description 12/29/2024 External Result Encounter [facility] External Department Unsolicited Jeison Power MD [address] [place] [address] [phone] Social History Tobacco Use Types Packs/Day Years [...] 06/20/2025 1:00 PM EST Clinical Support [facility] [address] [place] [id number] Jeison Power MD [address], [place] [phone] documented as of this encounter Procedures Procedure Name Priority Date/Time Associated Diagnosis Comments MR LUMBAR SPINE WO CONTRAST 12/29/2024 12:20 PM EDT documented in this encounter Results * MR lumbar spine wo contrast (12/29/2024 12:20 PM EDT) Anatomical Region Laterality Modality Spine, L-spine Magnetic Resonan ce 12/29/2024 12:2 0 PM EDT Impressions 12/29/2024 12:38 PM EDT Unremarkable postsurgical changes. Patent L2-3 central canal. [...] Dominguez M.D. 12/29/2024 12:35 PM Dictation Location: [facility] Transcribed By: [facility] 12/29/24 1235 Dictated By: Isaac Dominguez DO 12/29/24 1220 Signed By: <Electronically signed by Isaac Dominguez DO in OV> 12/29/24 1235 Narrative 12/29/2024 12:38 PM EDT [facility] [place] [address] [place] [address] MRI Report Signed Patient: Macie Cloud MR#: [id number] : 1975 Acct:[id number] Age/Sex: 49 / F ADM Date: 12/29/24 Loc: Room: Type: [facility] Attending Dr: Jeison Power MD Copies to: Jeison Power MD Ordering Provider: Jeison Power MD Date of Service: 12/29/24 MR/MR lumbar spine wo/w con: M54.16, M47.816 ([id number]) XR/XR pre/post mri xray: M47.816, M54.16 MRI [...] canal stenosis. MR/MR lumbar spine wo/w con Procedure Note Radiology, Radiologist, - 12/29/2024 [facility] [place] [address] [place] [address] MRI Report Signed Patient: Macie Cloud AMR#: [id number] : 1975Acct:[id number] Age/Sex: 49 / FADM Date: 12/29/24 Loc: Room:Type: [facility] Attending Dr: Jeison Power MD Copies to: Jeison Power MD Ordering Provider: Jeison Power MD Date of Service: 12/29/24 MR/MR lumbar spine wo/w con: M54.16, M47.816 ([id number]) XR/XR pre/post mri xray: M47.816, M54.16 MRI Lumbar Spine with and withoutcontrast TECHNIQUE: Multiplanar T1 and T2-weighted imaging of lumbar spine obtainedwithout contrast.11 cc of ProHance HISTORY: Multiple back surgeries. Low back pain. Hip and leg pain COMPARISON: 06/23/2023 The last fully segmented vertebral pair is operationally defined as L5/S1. POST SURGERY CHANGES: L2-L4 posterior and interbody fusion changes. L4- 5interbody fusion changes BONE MARROW INFILTRATION: None BONE MARROW EDEMA: None BONY ALIGNMENT: Stable bony alignment SPINAL CANAL: No significant central canal narrowing. LUMBAR FRACTURE: None BONY LESIONS: None KIDNEYS: No hydronephrosis is identified. AORTA: No aortic aneurysm is seen. CONUS MEDULLARIS : The distal spinal cord is in adequate position withoutabnormality. Additional findings CONJOINED NERVE ROOT: None No pathologic enhancement. Lower thoracic level: Unremarkable L1-2 :No disc herniation central canal stenosis or neural foraminalnarrowing L2-3: Posterior and interbody fusion changes. Interval resolution ofdisc herniation. Patent central canal. Patent neural foramen L3-4: Interbody fusion. No significant stenosis. L4-5: Broad-based disc bulge greater on the right. Endplate spurring.No significant canal stenosis. Mild right neural foraminal narrowing, unchanged L5-S1: Facet hypertrophy. Mild right neural foraminal narrowing. Nosignificant central canal stenosis. MR/MR lumbar spine wo/w con IMPRESSION: Unremarkable postsurgical changes. Patent L2-3 central canal. Noresidual disc herniation Similar degenerative changes. No pathologic enhancement. Pre-MRI plain film assessment: L2-L4 posterior and interbody fusion. Nohardware failure. L4-5 interbody fusion. Scoliosis with concavity to the left. Diffuseosteopenia. Multilevel facet degeneration. High density in the right intrarenal collecting system andpelvis likely contrast. Impression dictated by: Isaac Dominguez M.D. 12/29/2024 12:35 PM Dictation Location: [facility] Transcribed By: [facility] 12/29/24 1235 Dictated By: Isaac Dominguez DO 12/29/24 1220 Signed By: <Electronically signed by Isaac Dominguez DO in OV> 12/29/24 1235 Jeison Power MD IMG MRI PROCEDURES Final Resu lt documented in this encounter Visit Diagnoses Not on filedocumented in this encounter
--- OUTSIDE RECORDS SUMMARY | 2025-05-20 10:24 | XMS_ITS | Encounter Summary ---
Author Organization [facility] Address [address] [place] [address] Care Team Providers Care Nurse Examiner Name Role Phone Vick Maxwell MD Unavailable [phone] [place] [address] Sr., Cristiano CARBONE Primary Care Provider + Source Comments In the event this information is protected by the Federal Confidentiality of Alcohol and Drug AbusePatient Records regulations: The Federal rules restrict any use of the information to criminally investigate or prosecute any alcohol or drug abuse patient.[facility] Encounter Details Date Type Department Care Team (Late st Contact Info) Description 12/10/2021 Abstract Neurology [address] [phone] (Historical), Unknown Social History Tobacco Use Types Packs/Day Years Used Date Smoking Tobacco: Every Day Cigarettes 2 29 Smokeless Tobacco: Never Alcohol Use Standard Drinks/Week Comments Yes 0 (1 standard drink = 0.6 oz pur e alcohol) social PHQ-2 Answer Date Recorded PHQ-2 score 0 12/02/2020 Area Deprivation Index Answer Date Haroon rded National Score (1-100), lower number is lower ri sk Not on file 11/11/2020 State Score (1-10), lower number is lower risk N ot on file 11/11/2020 Data from: https://www.neighborhoodatlas.medicine.[facility]/. Last address used for calculation Not on file 11/11/2020 Comments No Sex and Gender Information Value Date Recorded Sex Assigned at Not on file Legal Sex Female 8:06 AM EST Gender Identity Not on file Sexual Orientation Not on file Occupation Industry Job Start Date Job End Date disability Not on file Not on file Not on file documented as of this encounter Functional Status * Are you deaf or do you have serious difficulty hearing? Answer Date of Assessment Author No 06/30/2017 1:40 PM EST Nic, Do n K * Are you blind or do you have serious difficulty seeing, even when wearing glasses? Answer Date of Assessment Author No 06/30/2017 1:40 PM EST Lucero, Do n K * Do you have serious difficulty walking or climbing stairs? Answer Date of Assessment Author No 06/30/2017 1:40 PM EST Lucero, Do n K * Do you have difficulty dressing or bathing? Answer Date of Assessment Author No 06/30/2017 1:40 PM EST Nic, Do n K * Because of a physical, mental, or emotional condition, do you have difficulty doing errands alone such as visiting a doctor's office or shopping? Answer Date of Assessment Author No 06/30/2017 1:40 PM EST Nic, Do n K documented as of this encounter Mental Status * Because of a physical, mental, or emotional condition, do you have serious difficulty concentrating, remembering, or making decisions? Answer Entry Date Author No 06/30/2017 1:40 PM SISSY Lucero, Do n K documented in this encounter Plan of Treatment Not on file documented as of this encounter Visit Diagnoses Not on filedocumented in this encounter Care Teams Nurse Examiner Relationship Specialty Start Date End Date Cristiano De Leon Sr., DO [address] [place] [address] PCP - General Family Medicine 12/02/21 Vick Maxwell MD [address] [place] [address] Referring Pain Management 12/02/21 documented as of this encounter
--- OUTSIDE RECORDS SUMMARY | 2025-05-20 10:24 | XMS_ITS | Encounter Summary ---
Author Organization [facility] Address [address] [place] [address] Care Team Providers Care Quality Control Engineer Name Role Phone Vick Maxwell MD Unavailable [phone]., Cristiano CARBONE Primary Care Provider + Source Comments In the event this information is protected by the Federal Confidentiality of Alcohol and Drug AbusePatient Records regulations: The Federal rules restrict any use of the information to criminally investigate or prosecute any alcohol or drug abuse patient.[facility] Encounter Details Date Type Department Care Team (Late st Contact Info) Description 09/17/2022 Patient Msg Spine [place] [address] [phone] Provider, [facility] Information for Your Spine Surgery Social History Tobacco Use Types Packs/Day Years Used Date Smoking Tobacco: Every Day Cigarettes 2 29 Smokeless Tobacco: Never Alcohol Use Standard Drinks/Week Comments Yes 0 (1 standard drink = 0.6 oz pur e alcohol) social PHQ-2 Answer Date Recorded PHQ-2 score 6 09/11/2022 Area Deprivation Index Answer Date Haroon rded National Score (1-100), lower number is lower ri sk 85 08/28/2022 State Score (1-10), lower number is lower risk N ot on file 08/28/2022 Data from: https://www.neighborhoodatlas.[facility]/. Last address used for calculation [address] 08/28/2022 Comments No Sex and Gender Information Value [...] PM EST Nic, Do n K * Do you have serious difficulty walking or climbing stairs? Answer Date of Assessment Author No 06/30/2017 1:40 PM EST Nic, Do n K * Do you have difficulty dressing or bathing? Answer Date of Assessment Author No 06/30/2017 1:40 PM SISSY Lucero, Do n K * Because of a physical, mental, or emotional condition, do you have difficulty doing errands alone such as visiting a doctor's office or shopping? Answer Date of Assessment Author No 06/30/2017 1:40 PM SISSY Lucero Do n K documented as of this [...] on filedocumented in this encounter Care Teams Quality Control Engineer Relationship Specialty Start Date End Date Cristiano De Leon Sr., DO [address] [place] [address] PCP - General Family Medicine 12/02/21 Vick Maxwell MD [address] [place] [address] Referring Pain Management 12/02/21 documented as of this encounter
--- OUTSIDE RECORDS SUMMARY | 2025-05-20 10:24 | XMS_ITS | Clinical Summary ---
Author Organization [facility] Address [address] [place] [address] Care Team Providers Care College Intern Name Role Phone Vick Maxwell MD Unavailable [phone] [facility] Cristiano CARBONE Primary Care Provider + Allergies No known active allergies Medications amitriptyline (ELAVIL) 75 mg tablet Take by mouth daily at bedtime. Active omeprazole (PRILOSEC) 20 mg capsule 40 mg. 1 Active rOPINIRole (REQUIP) 1 mg tablet Take 1 mg by mouth. Active gabapentin (NEURONTIN) 300 mg capsule Take 300 mg by mouth three times daily. Active lisinopril-hyd roCHLOROthiazi de (PRINZIDE,ZEST ORETIC) 10-12.5 mg per tablet Take 1 tablet by mouth once daily. Active cyanocobalamin (VITAMIN B-12) 1,000 mcg/mL Inject 1 mL subcutaneously once every month. 1 mL 3 12/02/2020 3:05 PM EDT 1 Active tiZANidine (ZANAFLEX) 4 mg tablet take 2 to 3 tablets by mouth at bedtime if needed 3 Active Mesalamine (LIALDA) 1.2 gram EC tablet Take 1,200 mg by mouth four times daily. Active Active Problems Problem Noted Date Diagnosed Date Iron deficiency anemia 11/11/2020 B12 deficiency 11/11/2020 COPD (chronic obstructive pulmonary disease) Current smoker 06/30/2017 Neck pain 06/30/2017 S/P cervical spinal fusion Anxiety and depression Family History Medical History Relation Comments Arthritis Father Arthritis Mother Relation Status Comments Father Mother Social History Tobacco Use Types Packs/Day Years Used Date Smoking Tobacco: Every Day Cigarettes 2 29 Smokeless Tobacco: Never Alcohol Use Standard Drinks/Week Comments Yes 0 (1 standard drink = 0.6 oz pur e alcohol) social PHQ-2 Answer Date Recorded PHQ-2 score 4 11/20/2022 Area Deprivation Index Answer Date Haroon rded National Score (1-100), lower number is lower ri sk 85 08/28/2022 State Score (1-10), lower number is lower risk N ot on file 08/28/2022 Data from: https://www.neighborhoodatlas.medicine.[facility]/. Last address used for calculation [address] 08/28/2022 Comments No Sex and Gender Information Value Date Recorded Sex Assigned at Not on file Legal Sex Female 8:06 AM EST Gender Identity Not on file Sexual Orientation Not on file Occupation Industry Job Start Date Job End Date disability Not on file Not on file Not on file Last Filed Vital Signs Vital Sign Reading Time Taken Comments Blood Pressure 145/74 09/13/2022 1:18 PM EST Pulse 78 09/13/2022 1:18 PM EST Temperature 36.4 C (97.6 F) 12/02/2020 2:08 PM EDT Respiratory Rate 16 09/13/2022 1:18 PM EST Oxygen Saturation 99% 09/13/2022 1:18 PM EST Inhaled Oxygen Concentration - - Weight 57.2 kg (126 lb) 09/13/2022 1:18 PM EST Height 170.2 cm (5' 7 ) 09/13/2022 1:18 PM EST Body Mass Index 19.73 09/13/2022 1:18 PM EST Plan of Treatment Health Maintenance Due Date Last Done Comments Annual PCP Team Chronic Dise ase Visit 1991 HIV Screening 1991 Hepatitis C Screening 1991 Hepatitis B Vaccine (1 of 3 - 19+ 3-dose series) 1992 Pneumococcal Vaccine: 50+ (1 of 2 - PCV) 1992 Cervical Cancer Screening [address] Colonography 2018 Cologuard (FIT-DNA) 2018 Colonoscopy 2018 Lipid Screening 2018 Sigmoidoscopy 2018 Colorectal Cancer Screening 11/13/2021 Fecal Occult Blood 11/13/2021 11/13/2020 Shingrix Vaccine (1 of 2) 2023 Diabetes Screening 01/01/2024 12/31/2020, 0 12/30/2020, 12/22/2020, Additional history exists Covid-19 Vaccine (1 - 2024-2 6 season) 2025 Influenza Vaccine (#1) 2025 0, 04/08/2019, 05/03/2017 DTaP,Tdap,Td Vaccine (2 - Td or Tdap) 04/08/2029 04/08/2019 Procedures Procedure Name Priority Date/Time Associated Diagnosis Comments COMPREHENSIVE METABOLIC PANEL Routine 12/02/2020 2:05 PM EDT Iron deficiency anemia, unspecified iron deficiency anemia type IMMUNOCHEMICAL FECAL OCCULT BLOOD TEST Routine 11/13/2020 8:01 AM EDT Iron deficiency anemia, unspecified iron deficiency anemia type from Last 3 Months or Most Recently Relevant to Health Maintenance Results * (ABNORMAL) COMP METABOLIC PANEL (12/02/2020 2:05 PM EDT) Pathologist [facility] Protein, Total 6.7 6.3 - 8.0 g/dL 12/02/2020 2:32 PM EDT [facility] Albumin 4.4 3.9 - 4.9 g/dL 12/02/2020 2:32 PM EDT [facility] Calcium 9.3 8.5 - 10.2 mg/dL 12/02/2020 2:32 PM EDT [facility] Bilirubin, Total <0.2(L) 0.2 - 1.3 mg/dL 12/02/2020 2:32 PM EDT [facility] Alkaline Phosphatase 94 34 - 123 U/L 12/02/2020 2:32 PM EDT [facility] AST 18 13 - 35 U/L 12/02/2020 2:32 PM EDT [facility] Glucose 123(H) 74 - 99 mg/dL 12/02/2020 2:32 PM EDT [facility] Comment: The [place] Diabetes Association (ADA) provides guidance for cutoff values for fasting glucose and random glucose. The ADA defines fasting as no caloric intake for at least 8 hours. Fasting plasma glucose results between 100 to 125 mg/dL indicate increased risk for diabetes (prediabetes). Fasting plasma glucose results greater than or equal to 126 mg/dL meet the criteria for diagnosis of diabetes. In the absence of unequivocal hyperglycemia, results should be confirmed by repeat testing. In a patient with classic symptoms of hyperglycemia or hyperglycemic crisis, random plasma glucose results greater than or equal to 200 mg/dL meet the criteria for diagnosis of diabetes. Reference: Standards of Medical Care in Diabetes 2016, [place] Diabetes Association. Diabetes Care. 2016.39(Suppl 1). BUN 7 7 - 21 mg/dL 12/02/2020 2:32 PM EDT [facility] Creatinine 0.67 0.58 - 0.96 mg/dL 12/02/2020 2:32 PM EDT [facility] Sodium 135(L) 136 - 144 mmol/L 12/02/2020 2:32 PM EDT [facility] Potassium 4.2 3.7 - 5.1 mmol/L 12/02/2020 2:32 PM EDT [facility] Chloride 100 97 - 105 mmol/L 12/02/2020 2:32 PM EDT [facility] CO2 27 22 - 30 mmol/L 12/02/2020 2:32 PM EDT [facility] Anion Gap 8(L) 9 - 18 mmol/L 12/02/2020 2:32 PM EDT [facility] ALT 13 7 - 38 U/L 12/02/2020 2:32 PM EDT [facility] eGFR- >60 12/02/2020 2:32 PM EDT [facility] eGFR-All Other Races >60 . 12/02/2020 2:32 PM [facility] Comment: eGFR (Estimated GFR) Units of measure: mL/min/1.73 meters squared eGFR is derived from the reexpressed MDRD Study equation using the following parameters: serum creatinine, age, gender and race. The creatinine assay has been calibrated to be traceable to IDMS. An eGFR <60 mL/min/1.73m2 for >3 months is consistent with chronic kidney disease. Refer to KDOQI guidelines for clinical interpretation. In patients with unstable renal function, e.g. those with acute kidney injury, the eGFR may not accurately reflect actual GFR. Blood BLOOD SPECIMEN / Unknown 12/02/2020 2:05 PM EDT 12/02/2020 2:07 PM EDT Prem Cerna MD LABORATORY Final Re sult Performing Organization Address [place] Co de Phone Number [address] [address] [facility] [address] * FECAL OCCULT BLOOD TEST (11/13/2020 8:01 AM EDT) Occult Blood, Stool Negative Negative 11/18/2020 12:55 PM EDT [facility] Comment: This test was developed and its performance characteristics determined by [facility] Pathology and Laboratory Medicine [place] ([facility]). It has not been cleared or approved by the FDA. [facility] is regulated under CLIA as qualified to perform high complexity testing. This test is used for clinical purposes. It should not be regarded as investigational or for research. Stool Random STOOL SPECIMEN / Unknown 11/13/2020 8:01 AM EDT 11/18/2020 8:01 AM EDT Prem Cerna MD LABORATORY Final Re sult Performing Organization Address City/[facility]/ZIP Co de Phone Number [facility] [address] [facility] [place] [address] [facility] [address] [place] [address] from Last 3 Months or Most Recently Relevant to Health Maintenance Insurance [employer] Member Subscriber Plan / Payer (Ef fective 2016-Present) Name:Macie Cloud Relation to Subscriber:Self Name:Macie Cloud Payer ID:[id number] (NAIC) Group ID:[id number] Type:Medicaid Address: [place] [id number] Care Teams College Intern Relationship Specialty Start Date End Date Cristiano De Leon Sr., [address] [place] [address] PCP - General Family Medicine 12/02/21 Vick Maxwell MD [address] [place] [address] Referring Pain Management 12/02/21
--- OUTSIDE RECORDS SUMMARY | 2025-05-20 10:24 | XMS_ITS | Encounter Summary ---
Author Organization [facility] Address [address] [place] [address] Care Team Providers Care Seal Mixer Name Role Phone Vick Maxwell MD Unavailable [phone]., Cristiano CARBONE Primary Care Provider + Source Comments In the event this information is protected by the Federal Confidentiality of Alcohol and Drug AbusePatient Records regulations: The Federal rules restrict any use of the information to criminally investigate or prosecute any alcohol or drug abuse patient.[facility] Encounter Details Date Type Department Care Team (Late st Contact Info) Description 09/17/2022 Patient Msg Spine [place] [address] [phone] Provider, [facility] Surgical Education: PLEASE READ Social History Tobacco Use Types Packs/Day Years [...] N ot on file 08/28/2022 Data from: https://www.neighborhoodatlas.[facility]/. Last address used for calculation Angelina OLMSTEAD [...] on filedocumented in this encounter Care Teams Seal Mixer Relationship Specialty Start Date End Date Cristiano De Leon Sr., DO [address] [place] [address] PCP - General Family Medicine 12/02/21 Vick Maxwell MD [address] [place] [address] Referring Pain Management 12/02/21 documented as of this encounter
--- OUTSIDE RECORDS SUMMARY | 2025-05-20 10:24 | XMS_ITS | Encounter Summary ---
Author Organization [facility] Address [address] [place] [address] Care Team Providers Care Food Sales Clerk Name Role Phone Vick Maxwell MD Unavailable [phone] [place] [address] Sr., Cristiano CARBONE Primary Care Provider + Source Comments In the event this information is protected by the Federal Confidentiality of Alcohol and Drug AbusePatient Records regulations: The Federal rules restrict any use of the information to criminally investigate or prosecute any alcohol or drug abuse patient.[facility] Encounter Details Date Type Department Care Team (Late st Contact Info) Description 01/05/2022 Patient Msg Neurology [address] [phone] Provider, [facility] Imaging Order Social History Tobacco Use Types Packs/Day Years Used Date Smoking Tobacco: Every Day Cigarettes 2 29 Smokeless Tobacco: Never Alcohol Use Standard Drinks/Week Comments Yes 0 (1 standard drink = 0.6 oz pur e alcohol) social PHQ-2 Answer Date Recorded PHQ-2 score 4 12/31/2021 Area Deprivation Index Answer Date Haroon rded National Score (1-100), lower number is lower ri sk 85 01/01/2022 State Score (1-10), lower number is lower risk N ot on file 01/01/2022 Data from: https://www.neighborhoodatlas.[facility]/. Last address used for calculation [address]LM[address] 01/01/2022 Comments No Sex and Gender Information Value [...] Assessment Author No 06/30/2017 1:40 PM EST Nic Do n K documented as of this encounter Mental Status * Because of a physical, mental, or emotional condition, do you have serious difficulty concentrating, remembering, or making decisions? Answer Entry Date Author No 06/30/2017 1:40 PM SISSY Lucero Do n K documented in this encounter Plan of Treatment Not on file documented as of this encounter Visit Diagnoses Not on filedocumented in this encounter Care Teams Food Sales Clerk Relationship Specialty Start Date End Date Cristiano De Leon Sr., DO [address] [place] [address] PCP - General Family Medicine 12/02/21 Vick Maxwell MD [address] [place] [address] Referring Pain Management 12/02/21 documented as of this encounter
--- OUTSIDE RECORDS SUMMARY | 2025-05-20 10:24 | XMS_ITS | Patient Health Record ---
Author Organization [facility] [place] Address [address] [place] [address] Care Team Providers Care Pickle Processor Name Role Phone Cristiano De Leon DO Primary Care Provider Unavaila ble Reason For Referral No Information Plan Of Treatment No Information
--- OUTSIDE RECORDS SUMMARY | 2025-05-20 10:24 | XMS_ITS | Encounter Summary ---
Author Organization [facility] Address [address] [place] [address] Care Team Providers Care Wall Taper Helper Name Role Phone Vick Maxwell MD Unavailable [phone] Cristiano CARBONE Primary Care Provider + Source Comments In the event this information is protected by the Federal Confidentiality of Alcohol and Drug AbusePatient Records regulations: The Federal rules restrict any use of the information to criminally investigate or prosecute any alcohol or drug abuse patient.[facility] Encounter Details Date Type Department Care Team (Late st Contact Info) Description 09/17/2022 Patient Msg [facility] [place] [address] [phone] Provider, [facility] Advance Directives Social History Tobacco Use Types Packs/Day Years [...] N ot on file 08/28/2022 Data from: https://www.neighborhoodatlas.[facility]/. Last address used for calculation [address] [...] on filedocumented in this encounter Care Teams Wall Taper Helper Relationship Specialty Start Date End Date Cristiano De Leon Sr., DO [address] [place] [address] PCP - General Family Medicine 12/02/21 Vcik Maxwell MD [address] [place] [address] Referring Pain Management 12/02/21 documented as of this encounter
--- OUTSIDE RECORDS SUMMARY | 2025-05-20 10:24 | XMS_ITS | Encounter Summary ---
Author Organization [facility] Address [address] [place] [address] Care Team Providers Care Overhead Cleaner Maintainer Name Role Phone Vick Maxwell MD Unavailable [phone] Cristiano CARBONE Primary Care Provider + Source Comments In the event this information is protected by the Federal Confidentiality of Alcohol and Drug AbusePatient Records regulations: The Federal rules restrict any use of the information to criminally investigate or prosecute any alcohol or drug abuse patient.[facility] Encounter Details Date Type Department Care Team (Late st Contact Info) Description 09/17/2022 Patient Msg [facility] [place] [phone] [phone] Provider, Selina JACKSON [facility]: Please Read Social History Tobacco Use Types Packs/Day Years [...] N ot on file 08/28/2022 Data from: https://www.neighborhoodatlas.[facility]/. Last address used for calculation [address] 08/28/2022 Comments No Sex and Gender [...] PM SISSY Lucero, Do n K * Are you blind or do you have serious difficulty seeing, even when wearing glasses? Answer Date of Assessment Author No 06/30/2017 1:40 PM SISSY Lucero, Do n K * Do you have serious difficulty walking or climbing stairs? Answer Date of Assessment Author No 06/30/2017 1:40 PM SSISY Lucero, Do n K * Do you have difficulty dressing or bathing? Answer Date of Assessment Author No 06/30/2017 1:40 PM SISSY Lucero Do n K * Because of a [...] on filedocumented in this encounter Care Teams Overhead Cleaner Maintainer Relationship Specialty Start Date End Date Cristiano De Leon Sr., DO [address] [place] [address] PCP - General Family Medicine 12/02/21 Vick Maxwell MD [address] [place] [address] Referring Pain Management 12/02/21 documented as of this encounter
--- OUTSIDE RECORDS SUMMARY | 2025-05-20 10:24 | XMS_ITS | Encounter Summary ---
Author Organization [facility] Address [address] [place] [address] Care Team Providers Care Furniture Decals Inspector Name Role Phone Vick Maxwell MD Unavailable [phone] Cristiano CARBONE Primary Care Provider + Source Comments In the event this information is protected by the Federal Confidentiality of Alcohol and Drug AbusePatient Records regulations: The Federal rules restrict any use of the information to criminally investigate or prosecute any alcohol or drug abuse patient.[facility] Encounter Details Date Type Department Care Team (Late st Contact Info) Description 09/14/2022 Get Medical Advice [facility] [place] [address] [place] [address] Too Hughes MD [address] [place] [address] Surgery Social History Tobacco Use Types Packs/Day [...] N ot on file 08/28/2022 Data from: https://www.neighborhoodatlas.medicine.[facility]/. Last address used for calculation [address] [...] on filedocumented in this encounter Care Teams Furniture Decals Inspector Relationship Specialty Start Date End Date Cristiano De Leon Sr., [address] [place] [address] PCP - General Family Medicine 12/02/21 Vick Maxwell MD [address] [place] [address] Referring Pain Management 12/02/21 documented as of this encounter
--- OUTSIDE RECORDS SUMMARY | 2025-05-20 10:24 | XMS_ITS ---
Author Organization [facility] Address [address] [place], [place] [id number] Care Team Providers Care Caterer'S Aide Name Role Phone Vick Maxwell MD Unavailable [phone] [place] [address] Sr., Cristiano CARBONE Primary Care Provider + Transplant Episode Kidney Potential Donor [facility] ([place], [place]) - [facility] Referred on 04/13/2017 Marked as Ineligible on 04/13/2017 Reason: Not a Candidate Kidney CoordinatorConversion Pearl Stringer Phone: N/A Fax: N/A Email: N/A Care Team Name Role Phone Fax Email Conversion Pearl Stringer Kidney Coordinator N/A N/A N/A Events Pre-Donation Referred: 04/13/2017
--- OUTSIDE RECORDS SUMMARY | 2025-05-20 10:24 | XMS_ITS | Encounter Summary ---
Author Organization [facility] Address [address] [place] [address] Care Team Providers Care Provider Relations Manager Name Role Phone House Sr., Cristiano CARBONE Primary Care Provider + Vick Maxwell MD Unavailable [phone] Cristiano CARBONE Primary Care Provider + Source Comments In the event this information is protected by the Federal Confidentiality of Alcohol and Drug AbusePatient Records regulations: The Federal rules restrict any use of the information to criminally investigate or prosecute any alcohol or drug abuse patient.[facility] Encounter Details Date Type Department Care Team (Latest Contact Info) Description 11/07/2020 H&P External-Non[facility]F Provider, External, ZANDER Do not enter address information under generic External Provider. Social History Tobacco Use Types Packs/Day Years Used Date Smoking Tobacco: Every Day Cigarettes 2 29 Alcohol Use Standard Drinks/Week Comments Yes 0 (1 standard drink = 0.6 oz pur e alcohol) social Area Deprivation Index Answer Date Haroon rded National Score (1-100), lower number is lower ri sk Not on file 11/11/2020 State Score (1-10), lower number is lower risk N ot on file 11/11/2020 Data from: https://www.neighborhoodatlas.medicine.[employer]/. Last address used for calculation Not on [...] 1:40 PM EST Lucero, Do n K documented as of this encounter Mental Status * Because of a physical, mental, or emotional condition, do you have serious difficulty concentrating, remembering, or making decisions? Answer Entry Date Author No 06/30/2017 1:40 PM EST Nic, Do n K documented in this encounter Plan of Treatment Not on file documented as of this encounter Visit Diagnoses Not on filedocumented in this encounter Care Teams Provider Relations Manager Relationship Specialty Start Date End Date Cristiano De Leon Sr., DO PCP - General 08/19/06 12/01/21 Cristiano De Leon Sr., DO [address] [place] [address] PCP - General Family Medicine 12/02/21 Vick Maxwell MD [address] [place] [address] Referring Pain Management 12/02/21 documented as of this encounter
--- OUTSIDE RECORDS SUMMARY | 2025-05-20 10:24 | XMS_ITS | Encounter Summary ---
Author Organization [facility] Address [address] [place] [address] Care Team Providers Care Histopathologist Name Role Phone Vick Maxwell MD Unavailable [phone]., Cristiano CARBONE Primary Care Provider + Source Comments In the event this information is protected by the Federal Confidentiality of Alcohol and Drug AbusePatient Records regulations: The Federal rules restrict any use of the information to criminally investigate or prosecute any alcohol or drug abuse patient.[facility] Encounter Details Date Type Department Care Team (Late st Contact Info) Description 01/22/[address] [facility] [address] [phone] Lei Romero PA-C [address] [place] [address] Imagine Social History Tobacco Use Types Packs/Day Years [...] N ot on file 01/01/2022 Data from: https://www.neighborhoodatlas.medicine.[facility]/. Last address used for calculation [address] 01/01/2022 Comments No Sex and Gender [...] on filedocumented in this encounter Care Teams Histopathologist Relationship Specialty Start Date End Date Cristiano De Leon Sr., [address] [place] [address] PCP - General Family Medicine 12/02/21 Vick Maxwell MD [address] [place] [address] Referring Pain Management 12/02/21 documented as of this encounter
--- OUTSIDE RECORDS SUMMARY | 2025-05-20 10:30 | XMS_ITS | CCD ---
Author Organization [facility] Care Team Providers Care Residential Sales Executive Name Role Phone House, Sr Cristiano aBrnes Primary Care Provider [place], SR CRISTIANO Barnes Primary Care Unavailable BIB ALVAREZ H. Admitting Unavailable KIM, BIB H. Attending Unavailable [place], CRISTIANO Barnes Primary Care Unavailable LUKE WILKINS Referring Unavailab le [place], CRISTIANO Barnes Primary Care Unavailable KIMBIB Guzman HGregg Attending Unavailable KIM BIB HGregg Referring Unavailable Vick Maxwell MD Unavailable [phone] [place] [address] Cristiano Dockery Primary Care Provider Jak Steele Unavailable Vick Maxwell Unavailable DO Cristiano Graham Primary Care Provider ZANDER Ulrich Attending Provider [phone] Michel Venegas Unavailable DO Cristiano Graham Primary Care Provider ZANDER Ulrich Attending Provider DO Cristiano Graham Attending Provider Vick Maxwell MD Unavailable [phone] [place] [address] Cristiano Dockery Primary Care Provider DO Cristiano Graham Primary Care Provider MD Michel Venegas Attending Provider [phone] DAVID COLON Attending Unavailable DAVID COLON Admitting Unavailable DR ERIC HE Consulting Unavailable SANTOS, DR QUINONEZ Primary Care Unavailable DAVID COLON Consulting Unavailable LEE MARTINEZ Consulting Unavailable ALOK COELHO Consulting Unavailable DR CARLI HEEN R Consulting Unavailable HOUSE, DR QUINONEZ Primary Care [...] Unavailable Santos, DO Quinonez Primary Care Provider MD Michel Venegas Attending Provider DO Hussain Cristobal Emergency Provider TOO HUGHES Attending Unavailable HOUSE SR, CRISTIANO NEW [facility] Unavaaubrie clarke [place] SR, CRISTIANO DOCKERY [facility] TOO Walker Referring Unavailable TOO HUGHES Attending Unavailable LEI MARTINEZ Referring Unavailable [place] SR, CRISTIANO [facility] UnaSobeida Wallace Unavailable DO Cristiano Graham Primary Care Provider Eloy Mcdaniel Attending Provider Cristiano Graham Primary Care Physician [phone] SOBEIDA WHITNEY Referring Unavailable Star Sherman Attending Unavailable Star Sherman Admitting Unavailable NO FAMILY, PHYSICIAN Primary Care Provider Unava ilZANDER Gusman Emergency Provider [phone] DO Cristiano Graham Primary Care Provider Eloy Mcdaniel Attending Provider NO FAMILY, PHYSICIAN Primary Care Provider Unava ZANDER Bey Emergency Provider ROXANA Garcia Attending Provider NO FAMILY, PHYSICIAN Primary Care Provider Unava DO Nabil Vega Emergency Provider [phone] PREM DING Attending Unavailable HOUSE SR, CRISTIANO Barnes Primary Care Unavailable PREM DING Admitting Unavailable HOUSE SR, CRISTIANO P Primary Care Unavailable LOUKA, PETER Admitting Unavailable LOUKA, PETER Attending Unavailable RIGO IRENE Consulting Unavailable PREM DING Consulting Unavailable HAKAN MOE Consulting Unavailable JORDYN GTZ Consulting Unavaila ble PREM DING Referring Unavailable HOUSE SR, CRISTIANO P Primary Care Unavailable House Sr., DOCristiano Primary Care Provider Unavailable Primary Care Provider Unavailabl e NO FAMILY, PHYSICIAN Primary Care Provider Unava ilHussain Huffman DO Emergency Provider NO FAMILY, PHYSICIAN Primary Care Provider Unava ilable Tono BONILLA, Lora Castellanos Attending Provider NON STAFF Primary Care Provider Unavailloni e Lee Pichardo DO Admit Provider Patrica Pfeiffer MD Other Provider Jomar Suárez MD Other Provider Yamil Brynat DO Other Provider [phone] Lee Ignacio MD Other Provider Rei Maya DO Attending Provider Rei Maya DO Other Provider Rosi Pena APRN Other Provider Doris Pope DO Other Provider Davion Hair DO Other Provider Robert Rodriguez DO Other Provider Jamel Loaiza MD Other Provider Yodit Riley DO Attending Provider [phone] Lora Power Admitting Unavailable Lora Power Attending Unavailable NO FAMILY, PHYSICIAN Primary Care Unavailable Hussain Cristobal Admitting Unavailable Hussain Cristobal Attending Unavailable NO FAMILY, PHYSICIAN Primary Care Unavailable Patrica Pfeiffer Attending Unavailable NON STAFF Primary Care Unavailable Lee Pichardo Admitting Unavailable Jomar Suárez Consulting Unavailable Yamil Bryant II Consulting Unavaila Lee Gordon Consulting Unavailable Rei Maya Consulting Unavailable Rosi Pena Consulting Unavailable Doris Pope Consulting Unavailable Davion Hair Consulting Unavailable Robert Rodriguez Unavailable ONYEVICENTEKE, CHUKA Referring Unavailable LORA POWER Attending Unavailable LORA POWER Referring Unavailable ONYENEKE, CHUKA Referring Unavailable RIO RAMIREZ Attending Unavailable RIO RAMIREZ Referring Unavailable ONYENEKE, CHUKA Referring Unavailable LORA POWER Attending Unavailable ONYENEKE, CHUKA Referring Unavailable CRISTIANO GRAHAM SR Primary Care Unavailable Allergies Allergy Classification Reported Allergen(s) Allergy Type Date of Onset Reaction(s) Facility (1 source) No Known Medication Allergies; Translations: [No Known Medication Allergies] Propensity to adverse reactions (disorder) [facility] Repository Medications Current Medications Medication Drug Class(es) Dates Sig (Normalized) Sig (Original) [id number] 200 actuat albuterol 0.09 mg/actuat metered dose inhaler (13 sources) beta2-Adrenergic Agonist Start: 03-17-2025 take 1 puff(s) by inhalation every four hours as needed for wheezing Start: 05-22-2024 take 2 puff(s) by in halation every four hours for wheezing albuterol HFA [...] 11/10/2020 Active atomoxetine 60 mg oral capsule (4 sources) Norepinephrine Reuptake Inhibitor Start: 10-19-2024 End: [...] crush or chew. 21 capsule 05/22/2024 Active 120 actuat budesonide 0.16 mg/actuat / formoterol fumarate 0.0045 mg/actuat metered dose inhaler (2 sources) Corticosteroid, beta2-Adrenergic Agonist Start: 03-20-2025 buprenorphine 8 mg / naloxone 2 mg sublingual film (20 sources) Partial Opioid Agonist, Opioid Antagonist Start: 09-26-2023 Start: 10-26-2019 buprenorphine- nalOXone SL (SUBOXONE) 8-2 [...] daily. Active take 1 tablet by shruthi every twenty-four hours Buprenorphine HCl-Naloxone HCl 8-2 [...] days 21 capsule 0 01/01/2021 01/08/2021 Active clonazePAM 0.5 mg oral tablet (1 source) Benzodiazepine Start: cyclobenzaprine hydrochloride 10 mg oral tablet (20 sources) Muscle Relaxant Start: End: take 1 tablet by mouth in the [...] (10 mg) before bedtime. 90 tablet 2 04/25/2025 07/24/2025 Active Start: 12-30-2020 take 10 mg by [...] by mouth. diazePAM 5 mg oral tablet (4 sources) Benzodiazepine Start: 11-21-19 25 diazePAM (Valium) 5 MG tablet Indications: Claustrophobia Take 1 tablet (5 mg) by mouth 1 (one) time if needed for anxiety (1 po 30 minutes prior to MRI and may repeat x 1) for up to 2 doses 2 tablet 11/20/2024 Active dicyclomine hydrochloride 20 mg oral tablet (16 sources) Anticholinergic Start: 10-14-19 take 1 tablet by mouth every six hours Start: 2020 End: 09-16-2022 take 1 tablet by mouth three times daily as needed for pain Dicyclomine 20 mg tablet Discontinued 20 MG PO Three times daily as needed for pain 2020 1:00am September 16, 2022 10:27am docusate sodium 50 mg / sennosides, alf [...] oral tablet (20 sources) Anti-epileptic Agent Start: 10-11-2023 take 800 mg by mouth three times daily 800 mg, Oral, 3 TIMES DAILY, First dose on Tue10/11/23 at 2100, Until Discontinued Start: 04-12-2023 take 1 tablet by shruthi th three times daily Start: 12-30-2020 take 800 mg by mouth twice daily 800 mg, Oral, 2 TIMES DAILY, First dose on Tue12/30/20 at 2100 Start: 2020 End: 03-16-2025 take 1 capsule by mouth three times daily Gabapentin 300 mg Capsule Discontinued 300 MG PO Three times daily 2020 1:00am March 16, 2025 12:08am Start: 2020 take 300 mg by mouth twice daily Gabapentin Active 300 MG PO Twice daily 2020 12:00am take 1 tablet by shruthi th every twenty-four hours Gabapentin 600 MG 1 tablet Orally Once a day Active take 1 tablet by shruthi th twice daily gabapentin (NEURONTIN) 800 MG tablet Take 800 mg by mouth 2 times daily. 0 Active Comment on above: Take 300 mg by mouth three times daily. 500 ml glucose 50 mg/ml / potassium chloride 0.02 meq/ml / sodium chloride 4.5 mg/ml injection (1 source) Start: 12-31-19 21 Intravenous, at 100 mL/hr, CONTINUOUS, Starting on Tue12/30/20 at 1630, Post-op hydroCHLOROthiazide 12.5 mg oral tablet (1 source) Thiazide Diuretic Start: 10-11-19 24 hydroCHLOROthiazide tablet 12.5 mg hydroCHLOROthiazide 12.5 mg / lisinopril 20 mg oral tablet (20 sources) Thiazide Diuretic, Angiotensin Converting Enzyme Inhibitor Start: 07-22-20 23 lisinopril-hydroCHLOROthiaz gladys 20-12.5 MG tablet 07/22/2023 Active Start: 09-20-2022 [...] 5 % patch Indications: PHN (postherpetic neuralgia) ([facility]) Apply 2 patches over 12 hours topically Daily Remove & discard patch within 12 hours or as directed by . 60 patch 2 09/27/2024 10/27/2024 Active LORazepam 0.5 mg oral tablet (3 sources) Benzodiazepine Start: 12-25-2024 End: 12-26-2024 take 1 tablet by mouth once LORazepam (Ativan) 0.5 MG tablet Indications: Claustrophobia Take 1 tablet (0.5 mg) by mouth every 12 (twelve) hours if needed for anxiety for up to 1 day 2 tablet 12/25/2024 Active methylPREDNISolone (3 sources) Corticosteroid Start: 05-22-2024 [...] (Therapy completed) metroNIDAZOLE 7.5 mg/ml topical cream (8 sources) Nitroimidazole Antimicrobial Start: 03-12-2024 metroNIDAZOLE (Metrocream) 0.75 % cream APPLY a thin layer to breakouts on face once or twice a day 03/12/2024 Active mometasone furoate 1 mg/ml topical cream (8 sources) Corticosteroid Start: 03-12-2024 mometasone ([place] kalee) [...] Active Start: 02-24-2021 take 1 capsule by [facility] once daily omeprazole 20 mg Cap-DR 20 mg = 1 cap(s), Oral, Daily, # 30 cap(s), Refills(s) 0 Start Date: 02/24/21 Status: Ordered Start: 09-14-2020 omeprazole (UT ILOSEC) 20 MG delayed release capsule 2 capsules Daily 09/14/2020 Active Comment on above: 40 mg. ondansetron (ZOFRAN-ODT) disintegrating tablet 4 mg (1 source) Start: ondansetron (ZOFRAN-ODT) disintegrating tablet 4 mg QUEtiapine 200 mg oral tablet (9 sources) Atypical Antipsychotic Start: take 1 tablet by mouth in the morning QUEtiapine (SEROquel) 200 MG tablet Take 1 tablet by mouth in the morning and 1 tablet before bedtime. 04/20/2024 Active rOPINIRole 1 mg oral tablet (20 sources) Nonergot Dopamine Agonist Start: 023 Start: 12-31-2020 take 1 mg by mouth o nce daily as needed 1 mg, Oral, NIGHTLY PRN, restless leg, Starting on Tue12/31/20 at 2100 Start: 05-10-2019 End: 04-16-2025 take 1 tablet by mouth once daily at bedtime Ropinirole (Requip) 0.25 mg Tablet Discontinued 0.25 MG PO Daily at bedtime May 10, 2019 12:00am April 16, 2025 1:07pm take 1 tablet by shruthi once daily at bedtime Requip 0.5 MG 1 tablet 1 to 3 hours before bedtime Orally Once a day Not-Taking Comment on above: Take 1 mg by mouth. tiZANidine 4 mg oral tablet (20 sources) Central alpha-2 Adrenergic Agonist Start: 12-25-2023 take 1 tablet by mouth every eight [...] Start: 09-16-2022 take 1 capsule by mo ut three times daily as needed Start: 09-16-2022 take 1 capsule by mo ut once daily at bedtime as needed Tizanidine (Zanaflex) 4 mg Capsule Active 4 MG PO Daily at bedtime as needed for Pain September 16, 2022 12:00am 1-3 tabs Start: 08-19-2022 End: 10-11-2023 tiZANidine (ZANAFLEX) tablet 4 mg take 3 tablets by mo ut at bedtime as needed tiZANidine (Zanaflex) 4 MG tablet TAKE 3 TABLETS BY MOUTH AT BEDTIME NEEDED Active Comment on above: take 2 to 3 tablets by mouth at bedtime if needed traZODone hydrochloride 150 mg oral tablet (1 source) Serotonin Reuptake Inhibitor Start: 04-16-20 take 1 mg by mouth once daily at bedtime as needed vitamin b12 1 mg/ml injectable solution (20 sources) Vitamin B12 Start: 01-04-20 cyanocobalamin 1000 MCG/ML injection Inject 1 mL into the muscle every 7 days 01/04/2024 Active Start: 12-30-2020 inject 1000 ug by in tramuscular injection every 30 days 1,000 mcg, Intramuscular, EVERY 30 DAYS, First dose on Tue12/30/20 at 1630 Start: 12-02-2020 Start: 12-02-2020 inject 1 mL by subcu [...] Taking at Discharge) take 2 tablets by [facility] every six hours as needed for pain acetaminophen (TYLENOL) 325 MG tablet Take 650 mg by mouth every 6 hours as needed for Pain 0 Active acetaminophen 325 mg / oxyCODONE hydrochloride 5 mg oral tablet (19 sources) Opioid Agonist Start: 10-11-2023 take 2 tablets by mouth every four hours as needed 2 tablet, Oral, EVERY 4 HOURS PRN, Starting on Tue10/11/23 at 1817, Until Discontinued, Pain Severe (7-10) Maximum dose of acetaminophen is 4000 mg from all sources in 24 hours. Post-op Start: 10-11-2023 take 1 tablet by shruthi th every four hours as needed 1 tablet, [...] 4-6 HOURS as needed for Pain May 10, 2019 12:00am 2020 11:45am ALPRAZolam 1 mg oral tablet (12 sources) Benzodiazepine Start: 05-10-2019 End: 2020 take 1 tablet by mouth twice daily Alprazolam (Xanax) 1 mg Tablet Discontinued 1 MG PO Twice daily May 10, 2019 12:00am 2020 11:44am amitriptyline hydrochloride 50 mg oral tablet (20 [...] above: Take by mouth daily at bedtime. amLODIPine-Valsartan- HCTZ (4 sources) amLODIPine-Valsa rtan -HCTZ Not-Taking azithromycin 250 mg oral tablet (2 sources) Macrolide Antimicrobial Start: 03-20-20 End: 04-16-20 take 2 tablets by mouth once daily Azithromycin 250 mg tablet Discontinued 250 MG PO Daily 12 17March 20, 2025 12:00am April 16, 2025 1:04pm start on day 2 of therapy bupivacaine hydrochloride 5 mg/ml injectable solution (2 sources) Amide Local Anesthetic Start: 05-09-20 End: 04-25-20 bupivacaine (Marcaine) 0.5 % injection 5 mg Start: 05-09-2025 End: 04-25-2025 5 mg, Injection, Once, On 05/09/25 at 1215, For 1 dose calcium chloride 0.0014 meq/ ml / potassium chloride 0.004 meq/ml / sodium chloride 0.103 meq/ml / sodium lactate 0.028 meq/ml injectable solution (3 sources) Start: 10-11-2023 End: 10-11-2023 lactated ringers IV soln infusion Start: 12-30-2020 End: 12-30-2020 lactated ringers infusion carisoprodol 350 mg oral tablet (12 sources) Muscle Relaxant Start: 05-10-2019 End: 2020 take 1 tablet by mouth three times daily Carisoprodol (Soma) 350 mg Tablet Discontinued 350 MG PO Three times daily May 10, 2019 12:00am 2020 11:45am ceFAZolin 2000 mg injection (1 source) Cephalosporin [...] at 0245 Antimicrobial Indications: Surgical Prophylaxis Post-op cefdinir 300 mg oral capsule (2 sources) Cephalosporin Antibacterial Start: 03-20-2025 End: 04-16-2025 take 1 capsule by mouth twice daily Cefdinir 300 mg capsule Discontinued 300 MG PO Twice daily 06 07March 20, 2025 12:00am April 16, 2025 1:05pm dexamethasone phosphate 4 mg/ml injectable solution (13 sources) Corticosteroid Start: 05-09-2025 End: 04-25-2025 dexAMETHasone sod phos (Decadron) injection 4 mg Start: 05-09-2025 End: 04-25-2025 4 mg (1 mL), Injection, Once , On Lynette 05/09/25 at 1215, For 1 dose Start: 11-04-2020 dexAMETHasone (DECADRON) 2 mg tablet take 3 tablets by mouth daily for 3 days then 2 for 3 days then 1 for 3 days 0 11/04/2020 Active Comment on above: take 3 tablets by mo uth daily for 3 days then 2 for [...] Gel Discontinued 1 PERCENT TOPICAL Daily May 10, 2019 12:00am September 16, 2022 10:27am Start: 05-10-2019 End: 09-16-2022 take 1 tablet by mouth twice daily Diclofenac Sodium 75 mg Tablet,Delayed Release (Dr/Ec) Discontinued 75 MG PO Twice daily May 10, 2019 12:00am September 16, 2022 10:27am take 1 tablet by shruthi th every [...] DULoxetine 60 mg delayed release oral capsule (12 sources) Serotonin and Norepinephrine Reuptake Inhibitor Start: 05-10-20 End: 09-16-19 take 1 capsule by mouth once daily Duloxetine (Cymbalta) 60 mg Capsule,Delayed Release(Dr/Ec) Discontinued 60 MG PO Daily May 10, 2019 12:00am September 16, 2022 10:28am estrogens, conjugated (alf) 0.625 mg oral tablet (12 sources) Estrogen Start: 05-10-20 End: 06-17-20 take 1 tablet by mouth once daily Conjugated Estrogens (Premarin) 0.625 mg Tablet Discontinued 0.625 MG PO Daily May 10, 2019 12:00am June 17, 2023 8:39pm famotidine (PEPCID) 20 mg in sodium chloride (PF) 0.9 % 10 mL injection (1 source) Start: 10-11-19 End: 10-11-19 famotidine (PEPCID) 20 mg in sodium chloride (PF) 0.9 % 10 mL injection fluconazole 50 mg oral tablet (12 sources) Azole Antifungal Start: 05-10-20 End: 09-16-19 take 1 tablet by mouth once daily Fluconazole (Diflucan) 50 mg Tablet Discontinued 50 MG PO Daily May 10, 2019 12:00am September 16, 2022 10:28am 0.5 ml HYDROmorphone hydrochloride 1 mg/ml prefilled syringe (3 sources) Opioid Agonist Start: 10-11-19 24 End: 02-27-20 24 HYDROmorphone HCl PF (DILAUDID) injection 0.5 mg [...] lansoprazole 30 mg delayed release oral capsule (16 sources) Proton Pump Inhibitor Start: 05-10-2019 End: 09-26-2023 take 1 capsule by mouth once daily Lansoprazole 30 mg Capsule,Delayed Release(Dr/Ec) Discontinued 30 MG PO Daily May 10, 2019 12:00am September 26, 2023 9:28pm lisinopril 20 mg oral tablet (11 sources) Angiotensin Converting Enzyme Inhibitor Start: 09-16-2022 End: 04-16-2025 take 1 tablet by mouth once daily Lisinopril 20 mg Tablet Discontinued 20 MG PO Daily September 16, 2022 1:00am April 16, 2025 1:06pm loperamide hydrochloride 2 mg oral capsule (2 sources) Opioid Agonist Start: 03-20-2025 End: 04-16-2025 take 1 capsule by mouth every six hours as needed for diarrhea Loperamide 2 mg Capsule Discontinued 2 MG PO Q6H as needed for Diarrhea March 20, 2025 12:00am April 16, 2025 1:06pm mesalamine 1200 mg delayed release oral tablet (19 sources) Aminosalicylate Start: 09-16-2022 End: 06-17-2023 take 4 tablets by mouth once daily Mesalamine (Lialda) 1.2 gram tablet,delayed release (DR/EC) Discontinued 4.8 GM PO Daily 224 56 September 16, 2022 1:00am June 17, 2023 8:39pm End: 11-22-2022 Mesalamine (LIALDA) 1.2 gram EC tablet Take 1,200 mg by mouth four times daily. 0 Active Comment on above: Take 1,200 mg by shruthi th four times daily. methocarbamol 750 mg oral tablet (12 sources) Muscle Relaxant Start: 05-10-20 End: 09-16-19 take 1 tablet by mouth every eight hours Methocarbamol 750 mg Tablet Discontinued 750 MG PO Q8H May 10, 2019 12:00am September 16, 2022 10:29am oxyMORphone hydrochloride 10 mg oral tablet (12 sources) Opioid Agonist Start: 05-10-20 End: 07-26-20 take 1 tablet by mouth every four to six hours as needed for pain Oxymorphone (Opana) 10 mg Tablet Discontinued 10 MG PO EVERY 4-6 HOURS as needed for Pain May 10, 2019 12:00am 2020 11:45am pantoprazole 40 mg delayed release oral tablet (2 sources) Proton Pump Inhibitor Start: 10-12-19 take 40 mg by mouth once daily before breakfast 40 mg, Oral, DAILY BEFORE BREAKFAST, First dose on Tue10/12/23 at 0700, Until Discontinued Do not crush or break. Substituted for Omeprazole (PRILOSEC). Start: 12-31-2020 pantoprazole ( PROTONIX) tablet 40 mg 5 ml sodium chloride 9 mg/ml injection (7 sources) Start: 10-11-2023 take 1 dose intravenously twice daily 5-40 [...] Post-op traMADol hydrochloride 50 mg oral tablet (12 sources) Opioid Agonist Start: 05-10-2019 End: 2020 take 1 tablet by mouth every six hours Tramadol 50 mg Tablet Discontinued 50 MG PO Q6H May 10, 2019 12:00am 2020 11:44am divalproex sodium 500 mg delayed release oral tablet (12 sources) Mood Stabilizer, Anti-epileptic Agent Start: 05-10-2019 End: 09-16-2022 take 1 tablet by mouth twice daily Divalproex (Depakote) 500 mg Tablet,Delayed Release (Dr/Ec) Discontinued 500 MG PO Twice daily May 10, 2019 12:00am September 16, 2022 10:27am ziprasidone 80 mg oral capsule (12 sources) Atypical Antipsychotic Start: 05-10-2019 End: 09-16-2022 take 1 capsule by mouth twice daily Ziprasidone Hcl (Geodon) 80 mg Capsule Discontinued 80 MG PO Twice daily May 10, 2019 12:00am September 16, 2022 10:28am Problems Active Problems Problem Classification Problem Date Documented Da te Episodic/Chronic Anxiety disorders (20 sources) Mixed anxiety and depressive disorder; Translations: [Anxiety disorder, unspecified] Onset: 10-27-2020 10-27-2020 Chronic Bacterial infection; unspecified site (5 sources) Bacteremia; Translations: [Bacteremia] Onset: 03-15-2025 03-19-2025 Episodic Chronic obstructive pulmonary disease and bronchiectasis (20 sources) Chronic obstructive lung disease; Translations: [Chronic obstructive pulmonary disease, unspecified] Onset: 06-30-2017 10-27-2020 Chronic Deficiency and other anemia (1 source) Anemia; Translations: [Anemia, unspecified] Episodic Diseases of white blood cells (5 sources) Leukopenia; Translations: [Decreased white blood cell count, unspecified] Onset: 03-15-2025 03-17-2025 Chronic E Codes: Fall (1 source) Fall (on) (from) unspecified stairs and steps, initial encounter; Translations: [FALL ON FROM UNS STAIRS STEPS INIT] Onset: 08-10-2022 Episodic Essential hypertension (9 sources) Essential hypertension; Translations: [Essential (primary) hypertension] Onset: 04-25-2020 10-27-2020 Chronic Fluid and electrolyte disorders (4 sources) Metabolic acidosis, NAG, bicarbonate losses; Translations: [Metabolic acidosis with normal anion gap and bicarbonate losses] 03-17-2025 Episodic Gastritis and duodenitis (4 sources) Gastritis; Translations: [Gastritis, unspecified, without bleeding] Episodic Gastrointestinal hemorrhage (18 sources) Rectal hemorrhage; Translations: [Hemorrhage of anus and rectum] Onset: 03-15-2025 09-16-2022 Episodic Mood disorders (3 sources) Depressive disorder; Translations: [Depression] Onset: 10-27-2020 10-26-2019 Chronic Nausea and vomiting (2 sources) Nausea; Translations: [Nausea] 04-16-2025 Episodic Occlusion or stenosis of precerebral arteries (4 sources) Carotid artery stenosis; Translations: [Occlusion and stenosis of unspecified carotid artery] Chronic Other acquired deformities (3 sources) Unspecified kyphosis, site unspecified; Translations: [Kyphosis (acquired) (postural)] Onset: 09-13-2022 Chronic Other acquired deformities (8 sources) Acquired spondylolisthesis; Translations: [Spondylolisthesis, lumbar region] Episodic Other aftercare (1 source) Other senior living (current) drug therapy; Translations: [OTH [facility] CURRENT DRUG THERAPY] Onset: 02-15-2023 Episodic Other connective tissue disease (14 sources) History of lumbar fusion; Translations: [Arthrodesis status] Onset: 03-20-2024 03-20-2024 Episodic Other connective tissue disease (2 sources) Muscle pain; Translations: [Myalgia, unspecified site] Onset: 05-09-2025 05-09-2025 Episodic Other fractures (2 sources) Closed fracture of multiple left ribs; Translations: [Multiple fractures of ribs, left side, initial encounter for closed fracture] 05-22-2024 Episodic Other gastrointestinal disorders (20 sources) Diarrhea; Translations: [Diarrhea] 09-16-2022 Episodic Other gastrointestinal disorders (3 sources) Diarrhea, unspecified; Translations: [Diarrhea] Onset: 03-15-2025 09-16-2022 Episodic Other injuries and conditions due to [...] Onset: 04-29-2020 Chronic Other nervous system disorders (11 sources) Cervical myelopathy; Translations: [Disease of spinal cord, unspecified] Onset: 09-27-2024 Chronic Other nervous system disorders (5 sources) Thoracic outlet syndrome; Translations: [Brachial plexus disorders] Onset: 10-24-2024 10-26-2019 Chronic Other nervous system disorders (1 source) Chronic pain syndrome; Translations: [Chronic pain syndrome] Onset: 12-23-2022 Chronic Other nervous system disorders (2 sources) Disorder of nerve root and/or plexus; Translations: [Other nerve root and plexus disorders] Onset: 05-09-2025 05-09-2025 Chronic Other nervous system disorders (5 sources) Postoperative pain ; Translations: [Other acute postprocedural pain] Episodic Other non-traumatic joint disorders (1 source) Pain in left hip; Translations: [Pain in left hip] Onset: 09-27-2023 Episodic Other nutritional; endocrine; and metabolic disorders (1 source) H/O: Disorder; Translations: [Personal history of other endocrine, nutritional and metabolic disease] Episodic Other nutritional; endocrine; and metabolic disorders (2 sources) Weight decreased; Translations: [Abnormal weight loss] 04-16-2025 Episodic Pneumonia (except that caused by tuberculosis or sexually transmitted disease) (5 sources) Pneumonia; Translations: [Pneumonia, unspecified organism] Onset: 03-15-2025 03-17-2025 Episodic Residual codes; unclassified (10 sources) Chronic pain; Translations: [Other chronic pain] Onset: 04-29-2020 10-27-2020 Chronic Residual codes; unclassified (1 source) Pain; Translations: [Pain, unspecified] Episodic Residual codes; unclassified (8 sources) H/O Spinal surgery; Translations: [Status post spinal surgery] Episodic Residual codes; unclassified (1 source) Other specified postprocedural states; Translations: [Other specified postprocedural states] Onset: 09-27-2023 Episodic Septicemia (except in labor) (5 sources) Sepsis; Translations: [Sepsis, unspecified organism] Onset: 03-15-2025 03-15-2025 Episodic Spondylosis; intervertebral disc disorders; other back problems (20 sources) Lumbar spondylosis; Translations: [Spondylosis without myelopathy or radiculopathy, lumbar region] Onset: 12-30-2020 Resolved: 11-26-2021 Chronic Substance-related disorders (20 sources) Smoker; Translations: [Nicotine dependence, unspecified, uncomplicated] Onset: 06-30-2017 10-27-2020 Chronic Comment on above: Added secondary to d ocumentation in Social History. Substance-related disorders (5 sources) Opioid use, unspecified, uncomplicated; Translations: [Opioid use disorder] Onset: 03-15-2025 03-19-2025 Episodic Unclassified (1 source) Preprocedural examination done; Translations: [Pre-op examination] Unclassified (1 source) Long-term current use of drug therapy; Translations: [Other director long term care (current) drug therapy] Onset: 04-29-2020 10-27-2020 Unclassified (1 source) History of cervical spine fusion; Translations: [S/P cervical spinal fusion] Onset: 10-27-2020 10-27-2020 Unclassified (3 sources) LOW BACK PAIN, UNSPECIFIED; Translations: [LOW BACK PAIN, UNSPECIFIED] Onset: 09-29-2022 Unclassified (4 sources) Please schedule follow up appointment with PCP within 3-5 days. Unclassified (1 source) Acidosis, unspecified; Translations: [Acidosis, unspecified] Onset: 03-15-2025 Urinary tract infections (4 sources) Urinary tract infectious disease; Translations: [Urinary tract infection, site not specified] 09-26-2023 Episodic Past or Other Problems Problem Classification [...] Onset: 11-11-2020 12-22-2020 Episodic Headache; including migraine (9 sources) Headache; Translations: [Headache] Onset: 04-29-2020 10-27-2020 Episodic Malaise and fatigue (9 sources) Asthenia; Translations: [Weakness] Onset: 09-03-2020 10-27-2020 Episodic Nonspecific chest pain (9 sources) Chest pain; Translations: [Chest pain, unspecified] Onset: 04-29-2020 10-27-2020 Episodic Nutritional deficiencies (20 sources) Cobalamin deficiency; Translations: [Deficiency of other specified B group vitamins] Onset: 11-11-2020 12-22-2020 Episodic Other aftercare (8 sources) Long-term current use of drug therapy; Translations: [Other director long term care (current) drug therapy] Onset: 04-29-2020 10-27-2020 Episodic Other connective tissue disease (20 sources) History of cervical spine fusion; Translations: [Arthrodesis status] Onset: 10-27-2020 10-27-2020 Episodic Other connective tissue disease (10 sources) Iliopsoas abscess; 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 muscle abscess] Onset: 09-29-2023 09-26-2023 Episodic Other gastrointestinal disorders (5 sources) Heartburn; Translations: [Heartburn] Onset: 10-24-2024 10-26-2019 Episodic Other nervous system disorders (9 sources) Paresthesia; Translations: [Paresthesia of skin] Onset: 09-03-2020 10-27-2020 Episodic Spondylosis; intervertebral disc disorders; other back problems (20 sources) Low back pain; Translations: [Low back pain] Onset: 06-30-2017 Resolved: 11-18-2021 10-27-2020 Episodic Unclassified (1 source) LOW BACK PAIN, UNSPECIFIED; Translations: [LOW BACK PAIN, UNSPECIFIED] Onset: 09-27-2022 Unclassified (2 sources) History of lumbar fusion 09-29-2024 Viral infection (8 sources) Postherpetic neuralgia; Translations: [Other postherpetic nervous system involvement] Onset: 09-27-2024 09-27-2024 Episodic Results Test Name Value Interpretation Reference Range Facility XR CHEST 2 VIEWSon XR CHEST 2 VIEWS EXAMINATION: XR CHES T 2 VIEWS HISTORY: shortness of breath TECHNIQUE: [...] surveillance is recommended. ELECTRONICALLY SIGNED BY: Lon Moura, DO Normal Not Available XR CHEST 2 VIEWSon 5 XR CHEST 2 VIEWS EXAMINATION/TECHNIQU E: XR CHEST 2 VIEWS HISTORY: Follow-up pneumonia. COMPARISON: 03/27/2025. RESULT: Patchy opacity within the right midlung zone laterally, probably slightly decreased in size from 03/27/2025. Left lung grossly clear. No pleural effusion or pneumothorax. Stable cardiomediastinal silhouette. No acute osseous findings. Partially imaged hardware in the lower cervical spine and upper lumbar spine. Degenerative changes. IMPRESSION: Right lung opacity, probably slightly decreased in size from prior. Consider follow-up radiographs in around 2 weeks to ensure continued improvement/resolution. ELECTRONICALLY SIGNED BY: Hakan Henriquez MD Normal Not Available XR CHEST 2 VIEWSon 5 XR CHEST 2 VIEWS EXAMINATION/TECHNIQU E: XR CHEST 2 VIEWS HISTORY: Shortness of breath. COMPARISON: 09/14/2024. RESULT: Patchy opacity right midlung zone laterally, most likely infectious/inflammatory in etiology. No left lung opacity. No pleural effusion. No pneumothorax. Stable cardiomediastinal silhouette. No acute osseous findings. Partially imaged hardware within the cervical spine and lumbar spine. Degenerative changes. IMPRESSION: Patchy right lung opacity, likely infectious/inflammatory in etiology. Recommend follow-up radiographs after treatment to ensure resolution. ELECTRONICALLY SIGNED BY: Hakan Henriquez MD Normal Not Available Comprehensive Metabolic Pane [facility] 03-20-2025 Albumin [Mass/Vol] 2.9 g/dL Low 3.5-5.7 [facility] Comment on above: Performed By: #### M RSA - MSSA PCR #### [facility] [address] Albumin/Globulin [Mass ratio] 1.0 {ratio} Normal The [facility] Comment on above: Performed By: #### M RSA - MSSA PCR #### [facility] [address] [place] [id number] [place] ALP [Catalytic activity/Vol] 76 U/L Normal 34-104 [facility] Comment on above: Performed By: #### M RSA - MSSA PCR #### [facility] [address] [place] [id number] [place] ALT [Catalytic activity/Vol] 18 U/L Normal 7-52 [facility] Comment on above: Performed By: #### M RSA - MSSA PCR #### [address] Anion gap [Moles/Vol] 12.5 mmol/L Normal 6.0-15.0 Th e [facility] Comment on above: Performed By: #### M RSA - MSSA PCR #### [address] AST [Catalytic activity/Vol] 16 U/L Normal 13-39 [facility] Comment on above: Performed By: #### M RSA - MSSA PCR #### [address] Bilirubin [Mass/Vol] 0.2 mg/dL Low 0.3-1.0 [facility] Comment on above: Performed By: #### M RSA - MSSA PCR #### [address] Calcium [Mass/Vol] 8.6 mg/dL Normal 8.6-10.3 [facility] Comment on above: Performed By: #### M RSA - MSSA PCR #### [address] Chloride [Moles/Vol] 98 mmol/L Normal 98-107 [facility] Comment on above: Result Comment: Arturo romel is present at a level that could interfere with the result. Hemolysis is present at a level that could interfere with the result. Performed By: #### M RSA - MSSA PCR #### [address] CO2 [Moles/Vol] 29.1 mmol/L Normal 21.0-31.0 The [facility] Comment on above: Performed By: #### M RSA - MSSA PCR #### [address] Creatinine [Mass/Vol] 0.43 mg/dL Low 0.60-1.20 [facility] Comment on above: Performed By: #### M RSA - MSSA PCR #### [address] Creatinine Clr Calc Pharmacy 137.32 Normal [facility] Comment on above: Performed By: #### M RSA - MSSA PCR #### [place] [address] [place] GFR/1.73 sq M.predicted MDRD (S/P/Bld) [Vol rate/Area] mL/min/{1.73_m2} Normal [facility] Comment on above: Performed By: #### M RSA - MSSA PCR #### [address] Globulin (S) [Mass/Vol] 3.0 g/dL Normal T he [facility] Comment on above: Performed By: #### M RSA - MSSA PCR #### [address] Glucose [Mass/Vol] 143 mg/dL High 70-100 [facility] Comment on above: Result Comment: [place] Glucose Reference Range is dependent on time and content of last meal. Glucose of more than 200 mg/dL in a nonstressed, ambulatory subject supports the diagnosis of Diabetes Mellitus. ADA recommended reference range Performed By: #### M RSA - MSSA PCR #### [address] Potassium [Moles/Vol] 3.6 mmol/L Normal 3.5-5.1 [facility] Comment on above: Result Comment: Arturo romel is present at a level that could interfere with the result. Hemolysis is present at a level that could interfere with the result. Performed By: #### M RSA - MSSA PCR #### [address] Protein [Mass/Vol] 5.9 g/dL Low 6.4-8.9 [facility] Comment on above: Performed By: #### M RSA - MSSA PCR #### [address] Sodium [Moles/Vol] 136 mmol/L Normal 136-145 [facility] Comment on above: Result Comment: Arturo romel is present at a level that could interfere with the result. Hemolysis is present at a level that could interfere with the result. Performed By: #### M RSA - MSSA PCR #### [address] Urea nitrogen [Mass/Vol] 4 mg/dL Low 7-25 [facility] Comment on above: Performed By: #### M RSA - MSSA PCR #### [address] Magnesiumon 03-20-2025 Magnesium [Mass/Vol] 1.8 mg/dL Low 1.9-2.7 [facility] Comment on above: Result Comment: PERF ORMED BY: [place] [address] PATHOLOGIST [employer] SUPER[employer] REDDY GARNICA M.D. Performed By: #### A BG #### Point of Care testing , Scan and CBCon 03-20-2025 Anisocytosis Ql (Bld) Slight Normal [facility] Comment on above: Performed By: #### C MP, MG #### [address] Basophils (Bld) [#/Vol] 0.0 10*3/uL Normal 0.0-0.2 [facility] Comment on above: Performed By: #### C MP, MG #### [address] Basophils/100 WBC (Bld) 0.1 % Normal . T crystal [facility] Comment on above: Performed By: #### C MP, MG #### [address] Eosinophils (Bld) [#/Vol] 0.1 10*3/uL Normal 0.0-0.45 [facility] Comment on above: Performed By: #### C MP, MG #### [address] Eosinophils/100 WBC (Bld) 2.2 % Normal . [facility] Comment on above: Performed By: #### C MP, MG #### [address] Erythrocyte distribution width (RBC) [Ratio] 20.0 % High 11.9-15.3 [facility] Comment on above: Performed By: #### C MP, MG #### [address] Hematocrit (Bld) [Volume fraction] 29.3 % Low 34.0-46.4 [facility] Comment on above: Performed By: #### C MP, MG #### [address] Hemoglobin (Bld) [Mass/Vol] 9.6 g/dL Low 11.8-15.4 [facility] Comment on above: Performed By: #### C MP, MG #### [address] Hypochromasia Moderate Normal [facility] Comment on above: Performed By: #### C MP, MG #### [address] Large Platelets Slight Normal [facility] Comment on above: Result Comment: PERF ORMED BY: [place] [address] PATHOLOGIST [employer] SUPER[employer] REDDY GARNICA M.D. Performed By: #### C MP, MG #### [address] Lymphocytes (Bld) [#/Vol] 1.3 10*3/uL Normal 1.00-4.8 [facility] Comment on above: Performed By: #### C MP, MG #### [address] Lymphocytes/100 WBC (Bld) 21.0 % Normal . [facility] Comment on above: Performed By: #### C MP, MG #### [address] MCH (RBC) [Entitic mass] 27.5 pg Normal 24.7-34.3 [facility] Comment on above: Performed By: #### C MP, MG #### [facility] [address] MCV (RBC) [Entitic vol] 83.6 fL Normal 80-100 T [facility] Comment on above: Performed By: #### C MP, MG #### [address] Mean Corpuscular HGB Conc 32.9 g/dL Normal 32.0-35.0 [facility] Comment on above: Performed By: #### C MP, MG #### [address] Monocytes (Bld) [#/Vol] 0.5 10*3/uL Normal 0.0-0.8 [facility] Comment on above: Performed By: #### C MP, MG #### [address] Monocytes/100 WBC (Bld) 8.4 % Normal . T [facility] Comment on above: Performed By: #### C MP, MG #### [address] Neutrophils (Bld) [#/Vol] 4.2 10*3/uL Normal 1.8-7.7 [facility] Comment on above: Performed By: #### C MP, MG #### [address] Neutrophils/100 WBC (Bld) 68.3 % Normal . [facility] Comment on above: Performed By: #### C MP, MG #### [address] NRBC% 0.2 /100{WBC} Normal 0-0.5 [facility] Comment on above: Performed By: #### C MP, MG #### [address] Platelet Estimate Normal Normal Normal The [facility] Comment on above: Performed By: #### C MP, MG #### [address] Platelet mean volume (Bld) [Entitic vol] 8.0 fL Normal 6.3-10.7 [facility] Comment on above: Performed By: #### C MP, MG #### [address] Platelets (Bld) [#/Vol] 223 10*3/uL Normal 150-450 [facility] Comment on above: Performed By: #### C MP, MG #### [address] Poikilocytosis Slight Normal [facility] Comment on above: Performed By: #### C MP, MG #### [address] Polychromasia Slight Normal [facility] Comment on above: Performed By: #### C MP, MG #### [address] RBC (Bld) [#/Vol] 3.50 10*6/uL Low 3.60-5.00 [facility] Comment on above: Performed By: #### C MP, MG #### [address] Stomatocytes Slight Normal The [facility] Comment on above: Performed By: #### C MP, MG #### [address] Target Cells Slight Normal [facility] Comment on above: Performed By: #### C MP, MG #### [address] Tear Drop Cells Slight Normal [facility] Comment on above: Performed By: #### C MP, MG #### [address] WBC (Bld) [#/Vol] 6.2 10*3/uL Normal 3.8-11.6 [facility] Comment on above: Performed By: #### C MP, MG #### [address] [address] [place] White Blood Count 6.2 [CFU]/mL Normal 3.8-11.6 [facility] Comment on above: Performed By: #### C MP, MG #### [address] Comprehensive Metabolic Pane [place] 03-19-2025 Albumin [Mass/Vol] 2.5 g/dL Low 3.5-5.7 [facility] Comment on above: Performed By: #### C MP, MG #### [address] Albumin/Globulin [Mass ratio] 1.1 {ratio} Normal [facility] Comment on above: Performed By: #### C MP, MG #### [address] ALP [Catalytic activity/Vol] 69 U/L Normal 34-104 [facility] Comment on above: Performed By: #### C MP, MG #### [address] ALT [Catalytic activity/Vol] 18 U/L Normal 7-52 [facility] Comment on above: Performed By: #### C MP, MG #### [address] Anion gap [Moles/Vol] 10.7 mmol/L Normal 6.0-15.0 [facility] Comment on above: Performed By: #### C MP, MG #### [address] AST [Catalytic activity/Vol] 24 U/L Normal 13-39 [facility] Comment on above: Performed By: #### C MP, MG #### [address] Bilirubin [Mass/Vol] 0.3 mg/dL Normal 0.3-1.0 [facility] Comment on above: Performed By: #### C MP, MG #### [address] Calcium [Mass/Vol] 7.8 mg/dL Low 8.6-10.3 [facility] Comment on above: Performed By: #### C MP, MG #### [facility] [address] [place] [address] [place] Chloride [Moles/Vol] 100 mmol/L Normal 98-107 [facility] Comment on above: Performed By: #### C MP, MG #### [facility] [address] CO2 [Moles/Vol] 32.5 mmol/L High 21.0-31.0 The [facility] Comment on above: Performed By: #### C MP, MG #### [facility] [address] [place] [address] [place] Creatinine [Mass/Vol] 0.39 mg/dL Low 0.60-1.20 [facility] Comment on above: Performed By: #### C MP, MG #### [facility] [address] [place] [address] [place] Creatinine Clr Calc Pharmacy 155.99 Normal [facility] Comment on above: Performed By: #### C MP, MG #### [facility] [address] [place] [address] [place] GFR/1.73 sq M.predicted MDRD (S/P/Bld) [Vol rate/Area] mL/min/{1.73_m2} Normal [facility] Comment on above: Performed By: #### C MP, MG #### [facility] [address] [place] [address] [place] Globulin (S) [Mass/Vol] 2.2 g/dL Normal T [facility] Comment on above: Performed By: #### C MP, MG #### [facility] [address] [place] [address] [place] Glucose [Mass/Vol] 94 mg/dL Normal 70-100 [facility] Comment on above: Result Comment: [place] Glucose Reference Range is dependent on time and content of last meal. Glucose of more than 200 mg/dL in a nonstressed, ambulatory subject supports the diagnosis of Diabetes Mellitus. ADA recommended reference range Performed By: #### C MP, MG #### [address] Potassium [Moles/Vol] 3.2 mmol/L Low 3.5-5.1 [facility] Comment on above: Performed By: #### C MP, MG #### [address] Protein [Mass/Vol] 4.7 g/dL Low 6.4-8.9 [facility] Comment on above: Performed By: #### C MP, MG #### [address] Sodium [Moles/Vol] 140 mmol/L Normal 136-145 [facility] Comment on above: Performed By: #### C MP, MG #### [address] Urea nitrogen [Mass/Vol] 5 mg/dL Low 7-25 [facility] Comment on above: Performed By: #### C MP, MG #### [address] Magnesiumon 03-19-2025 Magnesium [Mass/Vol] 1.7 mg/dL Low 1.9-2.7 [facility] Comment on above: Result Comment: PERF ORMED BY: [place] [address] PATHOLOGIST [employer] SUPER[employer] REDDY GARNICA M.D. Performed By: #### C MP, MG #### [address] Scan and CBCon 03-19-2025 Anisocytosis Ql (Bld) Slight Normal [facility] Comment on above: Performed By: #### A BG #### Point of Care testing , Basophils (Bld) [#/Vol] 0.0 10*3/uL Normal 0.0-0.2 [facility] Comment on above: Performed By: #### A BG #### Point of Care testing , Basophils/100 WBC (Bld) 0.2 % Normal . T he [facility] Comment on above: Performed By: #### A BG #### Point of Care testing , Eosinophils (Bld) [#/Vol] 0.1 10*3/uL Normal 0.0-0.45 [facility] Comment on above: Performed By: #### A BG #### Point of Care testing , Eosinophils/100 WBC (Bld) 0.9 % Normal . [facility] Comment on above: Performed By: #### A BG #### Point of Care testing , Erythrocyte distribution width (RBC) [Ratio] 19.7 % High 11.9-15.3 [facility] Comment on above: Performed By: #### A BG #### Point of Care testing , Hematocrit (Bld) [Volume fraction] 29.0 % Low 34.0-46.4 [facility] Comment on above: Performed By: #### A BG #### Point of Care testing , Hemoglobin (Bld) [Mass/Vol] 9.5 g/dL Low 11.8-15.4 [facility] Comment on above: Performed By: #### A BG #### Point of Care testing , Hypochromasia Moderate Normal [facility] Comment on above: Performed By: #### A BG #### Point of Care testing , Large Platelets Slight Normal The [facility] Comment on above: Result Comment: PERF ORMED BY: [facility] [place] [address] PATHOLOGIST [employer] SUPER[employer] REDDY GARNICA M.D. Performed By: #### A BG #### Point of Care testing , Lymphocytes (Bld) [#/Vol] 1.3 10*3/uL Normal 1.00-4.8 [facility] Comment on above: Performed By: #### A BG #### Point of Care testing , Lymphocytes/100 WBC (Bld) 18.1 % Normal . [facility] Comment on above: Performed By: #### A BG #### Point of Care testing , Macrocytosis Slight Normal The [facility] Comment on above: Performed By: #### A BG #### Point of Care testing , MCH (RBC) [Entitic mass] 27.6 pg Normal 24.7-34.3 [facility] Comment on above: Performed By: #### A BG #### Point of Care testing , MCV (RBC) [Entitic vol] 83.9 fL Normal 80-100 T [facility] Comment on above: Performed By: #### A BG #### Point of Care testing , Mean Corpuscular HGB Conc 32.9 g/dL Normal 32.0-35.0 [facility] Comment on above: Performed By: #### A BG #### Point of Care testing , Monocytes (Bld) [#/Vol] 0.3 10*3/uL Normal 0.0-0.8 [facility] Comment on above: Performed By: #### A BG #### Point of Care testing , Monocytes/100 WBC (Bld) 4.9 % Normal . [facility] Comment on above: Performed By: #### A BG #### Point of Care testing , Neutrophils (Bld) [#/Vol] 5.4 10*3/uL Normal 1.8-7.7 [facility] Comment on above: Performed By: #### A BG #### Point of Care testing , Neutrophils/100 WBC (Bld) 75.9 % Normal . [facility] Comment on above: Performed By: #### A BG #### Point of Care testing , NRBC% 0.1 /100{WBC} Normal 0-0.5 [facility] Comment on above: Performed By: #### A BG #### Point of Care testing , Platelet Estimate Normal Normal Normal The [facility] Comment on above: Performed By: #### A BG #### Point of Care testing , Platelet mean volume (Bld) [Entitic vol] 8.2 fL Normal 6.3-10.7 The [facility] Comment on above: Performed By: #### A BG #### Point of Care testing , Platelets (Bld) [#/Vol] 212 10*3/uL Normal 150-450 The [facility] Comment on above: Performed By: #### A BG #### Point of Care testing , Polychromasia Slight Normal The [facility] Comment on above: Performed By: #### A BG #### Point of Care testing , RBC (Bld) [#/Vol] 3.45 10*6/uL Low 3.60-5.00 The [facility] Comment on above: Performed By: #### A BG #### Point of Care testing , WBC (Bld) [#/Vol] 7.1 10*3/uL Normal 3.8-11.6 The [facility] Comment on above: Performed By: #### A BG #### Point of Care testing , White Blood Count 7.1 [CFU]/mL Normal 3.8-11.6 The [facility] Comment on above: Performed By: #### A BG #### Point of Care testing , Blood Cultureon 03-18-2025 Bacteria identified Cx Nom (Bld) NO GROWTH 5 DAYS PERFORMED BY: [place] [address] PATHOLOGIST [employer] SUPER[employer] REDDY GARNICA M.D. Normal The [facility] Comment on above: Performed By: #### C MP, MG #### [address] Bacteria identified Cx Nom (Bld) NO GROWTH 5 DAYS PERFORMED BY: [place] [address] PATHOLOGIST [employer] SUPER[employer] REDDY GARNICA M.D. Normal The [facility] Comment on above: Performed By: #### C MP, MG #### [address] Comprehensive Metabolic Pane vaughn 03-18-2025 Albumin [Mass/Vol] 2.6 g/dL Low 3.5-5.7 The [facility] Comment on above: Performed By: #### T IBC, MG, CMP #### [address] Albumin/Globulin [Mass ratio] 1.1 {ratio} Normal The [facility] Comment on above: Performed By: #### T IBC, MG, CMP #### [facility] [address] ALP [Catalytic activity/Vol] 139 U/L High 34-104 The [facility] Comment on above: Performed By: #### T IBC, MG, CMP #### [facility] [address] ALT [Catalytic activity/Vol] 18 U/L Normal 7-52 The [facility] Comment on above: Performed By: #### T IBC, MG, CMP #### [facility] [address] Anion gap [Moles/Vol] 9.2 mmol/L Normal 6.0-15.0 The [facility] Comment on above: Performed By: #### T IBC, MG, CMP #### [facility] [address] AST [Catalytic activity/Vol] 23 U/L Normal 13-39 The [facility] Comment on above: Performed By: #### T IBC, MG, CMP #### [address] Bilirubin [Mass/Vol] 0.2 mg/dL Low 0.3-1.0 The [facility] Comment on above: Performed By: #### T IBC, MG, CMP #### [facility] [address] Calcium [Mass/Vol] 8.6 mg/dL Normal 8.6-10.3 The [facility] Comment on above: Performed By: #### T IBC, MG, CMP #### [facility] [address] [place] [address] [place] Chloride [Moles/Vol] 104 mmol/L Normal 98-107 The [facility] Comment on above: Performed By: #### T IBC, MG, CMP #### [facility] [address] [place] [address] [place] CO2 [Moles/Vol] 27.4 mmol/L Normal 21.0-31.0 The [facility] Comment on above: Performed By: #### T IBC, MG, CMP #### [address] Creatinine [Mass/Vol] 0.50 mg/dL Low 0.60-1.20 The [facility] Comment on above: Performed By: #### T IBC, MG, CMP #### [place] [address] [place] Creatinine Clr Calc Pharmacy 129.45 Normal The [facility] Comment on above: Performed By: #### T IBC, MG, CMP #### [facility] [address] [place] [address] [place] GFR/1.73 sq M.predicted MDRD (S/P/Bld) [Vol rate/Area] mL/min/{1.73_m2} Normal The [facility] Comment on above: Performed By: #### T IBC, MG, CMP #### [address] Globulin (S) [Mass/Vol] 2.4 g/dL Normal T he [facility] Comment on above: Performed By: #### T IBC, MG, CMP #### [address] Glucose [Mass/Vol] 113 mg/dL High 70-100 The [facility] Comment on above: Result Comment: [place] Glucose Reference Range is dependent on time and content of last meal. Glucose of more than 200 mg/dL in a nonstressed, ambulatory subject supports the diagnosis of Diabetes Mellitus. ADA recommended reference range Performed By: #### T IBC, MG, CMP #### [address] Potassium [Moles/Vol] 3.6 mmol/L Normal 3.5-5.1 The [facility] Comment on above: Performed By: #### T IBC, MG, CMP #### [address] Protein [Mass/Vol] 5.0 g/dL Low 6.4-8.9 The [facility] Comment on above: Performed By: #### T IBC, MG, CMP #### [address] Sodium [Moles/Vol] 137 mmol/L Normal 136-145 The [facility] Comment on above: Performed By: #### T IBC, MG, CMP #### [address] Urea nitrogen [Mass/Vol] 12 mg/dL Normal 7-25 The [facility] Comment on above: Performed By: #### T IBC, MG, CMP #### [address] Magnesiumon 03-18-2025 Magnesium [Mass/Vol] 1.7 mg/dL Low 1.9-2.7 The [facility] Comment on above: Performed By: #### T IBC, MG, CMP #### [address] Scan and CBCon 03-18-2025 Anisocytosis Ql (Bld) Marked Normal The [facility] Comment on above: Performed By: #### M RSA - MSSA PCR #### [address] Basophils (Bld) [#/Vol] 0.0 10*3/uL Normal 0.0-0.2 The [facility] Comment on above: Performed By: #### M RSA - MSSA PCR #### [address] Basophils/100 WBC (Bld) 0.2 % Normal . T he [facility] Comment on above: Performed By: #### M RSA - MSSA PCR #### [address] Eosinophils (Bld) [#/Vol] 0.0 10*3/uL Normal 0.0-0.45 The [facility] Comment on above: Performed By: #### M RSA - MSSA PCR #### [place] [address] [place] Eosinophils/100 WBC (Bld) 0.0 % Normal . The [facility] Comment on above: Performed By: #### M RSA - MSSA PCR #### [address] Erythrocyte distribution width (RBC) [Ratio] 19.6 % High 11.9-15.3 The [facility] Comment on above: Performed By: #### M RSA - MSSA PCR #### [address] Hematocrit (Bld) [Volume fraction] 27.2 % Low 34.0-46.4 The [facility] Comment on above: Performed By: #### M RSA - MSSA PCR #### [address] Hemoglobin (Bld) [Mass/Vol] 8.9 g/dL Low 11.8-15.4 The [facility] Comment on above: Performed By: #### M RSA - MSSA PCR #### [address] Lymphocytes (Bld) [#/Vol] 0.5 10*3/uL Low 1.00-4.8 The [facility] Comment on above: Performed By: #### M RSA - MSSA PCR #### [address] Lymphocytes/100 WBC (Bld) 3.2 % Normal . The [facility] Comment on above: Performed By: #### M RSA - MSSA PCR #### [address] MCH (RBC) [Entitic mass] 27.7 pg Normal 24.7-34.3 The [facility] Comment on above: Performed By: #### M RSA - MSSA PCR #### [address] MCV (RBC) [Entitic vol] 85.1 fL Normal 80-100 T he [facility] Comment on above: Performed By: #### M RSA - MSSA PCR #### [address] Mean Corpuscular HGB Conc 32.6 g/dL Normal 32.0-35.0 The [facility] Comment on above: Performed By: #### M RSA - MSSA PCR #### [facility] [address] [place] [address] [place] Monocytes (Bld) [#/Vol] 1.0 10*3/uL High 0.0-0.8 The [facility] Comment on above: Performed By: #### M RSA - MSSA PCR #### [facility] [address] [place] [address] [place] Monocytes/100 WBC (Bld) 6.6 % Normal . T he [facility] Comment on above: Performed By: #### M RSA - MSSA PCR #### [place] [address] [place] Neutrophils (Bld) [#/Vol] 14.1 10*3/uL High 1.8-7.7 The [facility] Comment on above: Performed By: #### M RSA - MSSA PCR #### [place] [address] [place] Neutrophils/100 WBC (Bld) 90.0 % Normal . [facility] Comment on above: Performed By: #### M RSA - MSSA PCR #### [place] [address] [place] NRBC% 0.1 /100{WBC} Normal 0-0.5 The [facility] Comment on above: Performed By: #### M RSA - MSSA PCR #### [place] [address] [place] Platelet Estimate Normal Normal Normal The [facility] Comment on above: Performed By: #### M RSA - MSSA PCR #### [place] [address] [place] Platelet mean volume (Bld) [Entitic vol] 8.5 fL Normal 6.3-10.7 The [facility] Comment on above: Performed By: #### M RSA - MSSA PCR #### [address] Platelet Morphology Normal Normal Normal The [facility] Comment on above: Result Comment: PERF ORMED BY: [place] [address] PATHOLOGIST [employer] SUPER[employer] REDDY GARNICA M.D. Performed By: #### M RSA - MSSA PCR #### [address] Platelets (Bld) [#/Vol] 196 10*3/uL Normal 150-450 [facility] Comment on above: Performed By: #### M RSA - MSSA PCR #### [address] RBC (Bld) [#/Vol] 3.20 10*6/uL Low 3.60-5.00 [facility] Comment on above: Performed By: #### M RSA - MSSA PCR #### [address] Rouleaux Slight Normal The [facility] Comment on above: Performed By: #### M RSA - MSSA PCR #### [address] Toxic Granulation Slight Normal The [facility] Comment on above: Performed By: #### M RSA - MSSA PCR #### [address] WBC (Bld) [#/Vol] 15.6 10*3/uL High 3.8-11.6 [facility] Comment on above: Performed By: #### M RSA - MSSA PCR #### [address] White Blood Count 15.6 [CFU]/mL High 3.8-11.6 [facility] Comment on above: Performed By: #### M RSA - MSSA PCR #### [address] Total Iron Binding Capacityo n 03-18-2025 Total Iron Binding Capacity 244 ug/dL Low 255-450 [facility] Comment on above: Performed By: #### T IBC, MG, CMP #### [address] Transferrin [Mass/Vol] 174 mg/dL Low 203-362 Th e [facility] Comment on above: Result Comment: PERF ORMED BY: [place] [address] PATHOLOGIST [employer] SUPER[employer] REDDY GARNICA M.D. Performed By: #### T IBC, MG, CMP #### [address] Clostridium Difficileon 08-0 Clostridium Difficile Negative Normal Negative [facility] Comment on above: Order Comment: > or = to 3 loose/watery stools in the last 24 HRS? Y Is patient on promotility agents or tube feeding? N Result Comment: Test ing performed by RT-PCR PERFORMED BY: [place] [address] PATHOLOGIST [employer] SUPER[employer] REDDY GARNICA M.D. Performed By: #### C MP, MG #### [address] Comprehensive Metabolic Pane vaughn 03-17-2025 Albumin [Mass/Vol] 2.9 g/dL Low 3.5-5.7 The [facility] Comment on above: Performed By: #### C MP, MG #### [address] Albumin/Globulin [Mass ratio] 1.1 {ratio} Normal [facility] Comment on above: Performed By: #### C MP, MG #### [address] ALP [Catalytic activity/Vol] 54 U/L Normal 34-104 [facility] Comment on above: Performed By: #### C MP, MG #### [address] ALT [Catalytic activity/Vol] 25 U/L Normal 7-52 [facility] Comment on above: Performed By: #### C MP, MG #### [address] Anion gap [Moles/Vol] 10.1 mmol/L Normal 6.0-15.0 [facility] Comment on above: Performed By: #### C MP, MG #### [address] AST [Catalytic activity/Vol] 30 U/L Normal 13-39 [facility] Comment on above: Performed By: #### C MP, MG #### [address] Bilirubin [Mass/Vol] 0.3 mg/dL Normal 0.3-1.0 The [facility] Comment on above: Performed By: #### C MP, MG #### [address] Calcium [Mass/Vol] 8.9 mg/dL Normal 8.6-10.3 The [facility] Comment on above: Performed By: #### C MP, MG #### [address] Chloride [Moles/Vol] 105 mmol/L Normal 98-107 [facility] Comment on above: Performed By: #### C MP, MG #### [address] CO2 [Moles/Vol] 23.5 mmol/L Normal 21.0-31.0 The [facility] Comment on above: Performed By: #### C MP, MG #### [address] Creatinine [Mass/Vol] 0.57 mg/dL Low 0.60-1.20 [facility] Comment on above: Performed By: #### C MP, MG #### [place] [address] [place] Creatinine Clr Calc Pharmacy 110.60 Normal The [facility] Comment on above: Performed By: #### C MP, MG #### [place] [address] [place] GFR/1.73 sq M.predicted MDRD (S/P/Bld) [Vol rate/Area] mL/min/{1.73_m2} Normal The [facility] Comment on above: Performed By: #### C MP, MG #### [address] Globulin (S) [Mass/Vol] 2.7 g/dL Normal T he [facility] Comment on above: Performed By: #### C MP, MG #### [address] Glucose [Mass/Vol] 90 mg/dL Normal 70-100 The [facility] Comment on above: Result Comment: [place] Glucose Reference Range is dependent on time and content of last meal. Glucose of more than 200 mg/dL in a nonstressed, ambulatory subject supports the diagnosis of Diabetes Mellitus. ADA recommended reference range Performed By: #### C MP, MG #### [address] Potassium [Moles/Vol] 3.6 mmol/L Normal 3.5-5.1 [facility] Comment on above: Performed By: #### C MP, MG #### [address] Protein [Mass/Vol] 5.6 g/dL Low 6.4-8.9 The [facility] Comment on above: Performed By: #### C MP, MG #### [address] Sodium [Moles/Vol] 135 mmol/L Low 136-145 The [facility] Comment on above: Performed By: #### C MP, MG #### [address] Urea nitrogen [Mass/Vol] 16 mg/dL Normal 7-25 [facility] Comment on above: Performed By: #### C MP, MG #### [place] [address] [place] Legionella Pneumophilia Ag, Uron 03-17-2025 Legionella Pneumophilia Ag, Ur Negative Normal Negative The [facility] Comment on above: Order Comment: SOURC E OF SPECIMEN: Indwelling Rain catheter Result Comment: Pres umptive negative for L. pneumophila serogroup 1 antigen in urine, suggesting no recent or current infection. Legionnaires' disease cannot be ruled out since other serogroups and species may also cause disease. Performed at: - [facility] [address] [id number] [place] Tutor: Saul Villanueva MD, Phone: [phone] PERFORMED BY: [place] [address] PATHOLOGIST [employer] SUPER[employer] REDDY GARNICA M.D. Performed By: #### U RLEGIONELLA #### [facility] , Magnesiumon 03-17-2025 Magnesium [Mass/Vol] 2.2 mg/dL Normal 1.9-2.7 [facility] Comment on above: Result Comment: PERF ORMED BY: [place] [address] PATHOLOGIST [employer] SUPER[employer] REDDY GARNICA M.D. Performed By: #### C MP, MG #### [place] [address] [place] Scan and CBCon 03-17-2025 Anisocytosis Ql (Bld) Marked Normal [facility] Comment on above: Performed By: #### A BG #### Point of Care testing , Basophils (Bld) [#/Vol] 0.0 10*3/uL Normal 0.0-0.2 [facility] Comment on above: Performed By: #### A BG #### Point of Care testing , Basophils/100 WBC (Bld) 0.1 % Normal . T he [facility] Comment on above: Performed By: #### A BG #### Point of Care testing , Dohle Bodies Slight Normal The [facility] Comment on above: Performed By: #### A BG #### Point of Care testing , Eosinophils (Bld) [#/Vol] 0.0 10*3/uL Normal 0.0-0.45 [facility] Comment on above: Performed By: #### A BG #### Point of Care testing , Eosinophils/100 WBC (Bld) 0.0 % Normal . [facility] Comment on above: Performed By: #### A BG #### Point of Care testing , Erythrocyte distribution width (RBC) [Ratio] 19.8 % High 11.9-15.3 The [facility] Comment on above: Performed By: #### A BG #### Point of Care testing , Hematocrit (Bld) [Volume fraction] 27.8 % Low 34.0-46.4 [facility] Comment on above: Performed By: #### A BG #### Point of Care testing , Hemoglobin (Bld) [Mass/Vol] 9.2 g/dL Low 11.8-15.4 The [facility] Comment on above: Performed By: #### A BG #### Point of Care testing , Hypochromasia Slight Normal [facility] Comment on above: Performed By: #### A BG #### Point of Care testing , Lymphocytes (Bld) [#/Vol] 0.1 10*3/uL Low 1.00-4.8 [facility] Comment on above: Performed By: #### A BG #### Point of Care testing , Lymphocytes/100 WBC (Bld) 1.1 % Normal . [facility] Comment on above: Performed By: #### A BG #### Point of Care testing , MCH (RBC) [Entitic mass] 27.8 pg Normal 24.7-34.3 [facility] Comment on above: Performed By: #### A BG #### Point of Care testing , MCV (RBC) [Entitic vol] 84.1 fL Normal 80-100 T [facility] Comment on above: Performed By: #### A BG #### Point of Care testing , Mean Corpuscular HGB Conc 33.0 g/dL Normal 32.0-35.0 [facility] Comment on above: Performed By: #### A BG #### Point of Care testing , Monocytes (Bld) [#/Vol] 0.5 10*3/uL Normal 0.0-0.8 [facility] Comment on above: Performed By: #### A BG #### Point of Care testing , Monocytes/100 WBC (Bld) 5.8 % Normal . T [facility] Comment on above: Performed By: #### A BG #### Point of Care testing , Neutrophils (Bld) [#/Vol] 8.7 10*3/uL High 1.8-7.7 [facility] Comment on above: Performed By: #### A BG #### Point of Care testing , Neutrophils/100 WBC (Bld) 93.0 % Normal . [facility] Comment on above: Performed By: #### A BG #### Point of Care testing , NRBC% 0.1 /100{WBC} Normal 0-0.5 [facility] Comment on above: Performed By: #### A BG #### Point of Care testing , Platelet Estimate Normal Normal Normal The [facility] Comment on above: Performed By: #### A BG #### Point of Care testing , Platelet mean volume (Bld) [Entitic vol] 8.4 fL Normal 6.3-10.7 [facility] Comment on above: Performed By: #### A BG #### Point of Care testing , Platelet Morphology Normal Normal Normal [facility] Comment on above: Result Comment: PERF ORMED BY: [facility] [address] [place] [address] PATHOLOGIST [employer] SUPER[employer] REDDY GARNICA M.D. Performed By: #### A BG #### Point of Care testing , Platelets (Bld) [#/Vol] 216 10*3/uL Normal 150-450 [facility] Comment on above: Performed By: #### A BG #### Point of Care testing , RBC (Bld) [#/Vol] 3.31 10*6/uL Low 3.60-5.00 [facility] Comment on above: Performed By: #### A BG #### Point of Care testing , WBC (Bld) [#/Vol] 9.3 10*3/uL Normal 3.8-11.6 The [facility] Comment on above: Performed By: #### A BG #### Point of Care testing , White Blood Count 9.3 [CFU]/mL Normal 3.8-11.6 [facility] Comment on above: Performed By: #### A BG #### Point of Care testing , Arterial Blood Gason 025 ABG Base Excess -4.7 mmol/L Low -3.0-3.0 The [facility] Comment on above: Performed By: #### A BG #### Point of Care testing , ABG Frac Inspired O2 100 % Normal [facility] Comment on above: Performed By: #### A BG #### Point of Care testing , ABG Liter Flow 40 Normal The [facility] Comment on above: Performed By: #### A BG #### Point of Care testing , ABG Oxygen Content 4.0 mmol/L Low 6.6-9.7 The [facility] Comment on above: Performed By: #### A BG #### Point of Care testing , ABG Oxygen Saturation 66.7 % Low 95.0-100.0 [facility] Comment on above: Performed By: #### A BG #### Point of Care testing , ABG PCO2 40.6 mm[Hg] Normal 35.0-45.0 [facility] Comment on above: Performed By: #### A BG #### Point of Care testing , ABG PH 7.33 Low 7.35-7.45 [facility] Comment on above: Performed By: #### A BG #### Point of Care testing , ABG PO2 37.7 mm[Hg] Off scale low 80.0-100.0 The [facility] Comment on above: Performed By: #### A BG #### Point of Care testing , CO2 [Moles/Vol] 22.1 mmol/L Low 23.0-27.0 The [facility] Comment on above: Performed By: #### A BG #### Point of Care testing , HCO3 (Bld) [Moles/Vol] 20.9 mmol/L Low 23.0-29.0 T [facility] Comment on above: Performed By: #### A BG #### Point of Care testing , Oxygen Device High Flow Normal [facility] Comment on above: Performed By: #### A BG #### Point of Care testing , Respiratory Critical Normal [facility] Comment on above: Result Comment: Crit ical Value called on: 03/16/2025 at 20:10 PERFORMED BY: [place] [address] PATHOLOGIST [employer] SUPER[employer] REDDY GARNICA M.D. Performed By: #### A BG #### Point of Care testing , VBG Draw Site Venous Normal [facility] Comment on above: Performed By: #### A BG #### Point of Care testing , Basic Metabolic Panelon 08 Anion gap [Moles/Vol] 14.2 mmol/L Normal 6.0-15.0 Th e [facility] Comment on above: Performed By: #### M RSA - MSSA PCR #### [place] [address] [place] Calcium [Mass/Vol] 8.1 mg/dL Low 8.6-10.3 The [facility] Comment on above: Performed By: #### M RSA - MSSA PCR #### [place] [address] [place] Chloride [Moles/Vol] 106 mmol/L Normal 98-107 The [facility] Comment on above: Performed By: #### M RSA - MSSA PCR #### [place] [address] [place] CO2 [Moles/Vol] 19.5 mmol/L Low 21.0-31.0 The [facility] Comment on above: Performed By: #### M RSA - MSSA PCR #### [place] [address] [place] Creatinine [Mass/Vol] 0.67 mg/dL Normal 0.60-1.20 The [facility] Comment on above: Performed By: #### M RSA - MSSA PCR #### [place] [address] [place] Creatinine Clr Calc Pharmacy 86.56 Normal The [facility] Comment on above: Performed By: #### M RSA - MSSA PCR #### [place] [address] [place] GFR/1.73 sq M.predicted MDRD (S/P/Bld) [Vol rate/Area] mL/min/{1.73_m2} Normal The [facility] Comment on above: Performed By: #### M RSA - MSSA PCR #### [address] Glucose [Mass/Vol] 95 mg/dL Normal 70-100 The [facility] Comment on above: Result Comment: [place] Glucose Reference Range is dependent on time and content of last meal. Glucose of more than 200 mg/dL in a nonstressed, ambulatory subject supports the diagnosis of Diabetes Mellitus. ADA recommended reference range Performed By: #### M RSA - MSSA PCR #### [address] Potassium [Moles/Vol] 3.7 mmol/L Normal 3.5-5.1 The [facility] Comment on above: Performed By: #### M RSA - MSSA PCR #### [address] Sodium [Moles/Vol] 136 mmol/L Normal 136-145 The [facility] Comment on above: Performed By: #### M RSA - MSSA PCR #### [address] Urea nitrogen [Mass/Vol] 18 mg/dL Normal 7-25 The [facility] Comment on above: Performed By: #### M RSA - MSSA PCR #### [place] [address] [place] Anion gap [Moles/Vol] 16.3 mmol/L High 6.0-15.0 Th e [facility] Comment on above: Performed By: #### M RSA - MSSA PCR #### [place] [address] [place] Calcium [Mass/Vol] 7.9 mg/dL Low 8.6-10.3 The [facility] Comment on above: Performed By: #### M RSA - MSSA PCR #### [place] [address] [place] Chloride [Moles/Vol] 104 mmol/L Normal 98-107 The [facility] Comment on above: Performed By: #### M RSA - MSSA PCR #### [place] [address] [place] CO2 [Moles/Vol] 17.2 mmol/L Low 21.0-31.0 The [facility] Comment on above: Performed By: #### M RSA - MSSA PCR #### [place] [address] [place] Creatinine [Mass/Vol] 0.72 mg/dL Normal 0.60-1.20 The [facility] Comment on above: Performed By: #### M RSA - MSSA PCR #### [place] [address] [place] Creatinine Clr Calc Pharmacy 80.55 Normal The [facility] Comment on above: Result Comment: PERF ORMED BY: [place] [address] PATHOLOGIST [employer] SUPERVISOR REDDY GARNICA M.D. Performed By: #### M RSA - MSSA PCR #### [place] [address] [place] GFR/1.73 sq M.predicted MDRD (S/P/Bld) [Vol rate/Area] mL/min/{1.73_m2} Normal The [facility] Comment on above: Performed By: #### M RSA - MSSA PCR #### [place] [address] [place] Glucose [Mass/Vol] 105 mg/dL High 70-100 The [facility] Comment on above: Result Comment: [place] Glucose Reference Range is dependent on time and content of last meal. Glucose of more than 200 mg/dL in a nonstressed, ambulatory subject supports the diagnosis of Diabetes Mellitus. ADA recommended reference range Performed By: #### M RSA - MSSA PCR #### [place] [address] [place] Potassium [Moles/Vol] 3.5 mmol/L Normal 3.5-5.1 The [facility] Comment on above: Performed By: #### M RSA - MSSA PCR #### [facility] [address] [place] [address] Sodium [Moles/Vol] 134 mmol/L Low 136-145 The [facility] Comment on above: Performed By: #### M RSA - MSSA PCR #### [facility] [address] [place] [address] Urea nitrogen [Mass/Vol] 20 mg/dL Normal 7-25 The [facility] Comment on above: Performed By: #### M RSA - MSSA PCR #### [facility] [address] [place] [address] CT abdomen pelvis w conon CT abdomen pelvis w con [facility] [place] [address] [place] [address] CT Scan Report Signed Patient: Macie Cloud MR#: [id number] : 1975 Acct:[id number] Age/Sex: 49 / F ADM Date: 03/15/25 Loc: Room: [address] [place] [address] Type: ADM IN Attending Dr: Patrica Pfeiffer MD Copies to: Patrica Pfeiffer MD Ordering Provider: Patrica Pfeiffer MD Date of Service: 03/16/25 CT/CT angio chest PE protocol: Ruling out PE ([id number]) CT/CT abdomen pelvis w con: Rectal bleeding CT angio chest PE protocol, CT abdomen pelvis w con 03/16/2025 2:55 PM SIGN AND SYMPTOMS: Shortness of breath, sepsis, productive cough, hypoxia CONTRAST: 90 mL of intravenous Isovue-370 TECHNIQUE: Multidetector CT axial slices of the chest, abdomen and pelvis were obtainedwith IV contrast. Multiplanar and 3-D reformats were performed and viewed on a separate workstation and reviewed to further define anatomy and possible pathology. CT was performed with one or more of the following dose reduction techniques: Automated exposure control, adjustment of the mA and/or kV according to patient size, or use of iterative reconstruction technique. COMPARISON: 08/04/2022. FINDINGS: Lower neck: Thyroid gland within normal limits, no supraclavicle adenopathy. Vessels: Atherosclerotic changes are noted in the thoracic aorta. There is no evidence of pulmonary embolism. Mediastinum and Alyce: Within normal limits. Heart: Normal size. No pericardial effusion. Airways: Within normal limits Lungs: Airspace opacities are noted bilaterally right greater than left. This is greatest in the right upper lobe and right middle lobe. Pleura: There is a small right-sided pleural effusion. Chest Wall: Within normal limits. Abdomen: Liver: within normal limits. Bile Ducts: Normal caliber. Gallbladder: No calcified gallstones. Normal caliber wall. Pancreas: within normal limits. Spleen: within normal limits. Adrenals: within normal limits. Kidneys: within normal limits. Pelvis: Reproductive Organs: No pelvic masses. Ureters: within normal limits. Bladder: There is a Rain catheter within the bladder. Bowel: Normal caliber. Uncomplicated colonic diverticula are present. Mesenteric Lymph Nodes: No enlarged mesenteric lymph nodes. Peritoneum: There is a small amount of intra-abdominal ascites. Vessels: Atherosclerotic changes are noted in the abdominal aorta and its branches.. Retroperitoneum: within normal limits. Abdominal Wall: within normal limits. Bones: There is a dextro convex curvature of the lumbar spine with posterior and intervertebral fusion from L2 through L4. Remote hardware tracks are noted at L5. Degenerative changes are noted in the sacroiliac joints. CT/CT angio chest PE protocol IMPRESSION: Airspace opacities are noted bilaterally right greater than left. This is greatest in the right upper lobe and right middle lobe. This is consistent with bilateral pneumonia. There is no evidence of pulmonary embolism. There is a small right-sided pleural effusion. There is a small amount of intra-abdominal ascites. No bowel obstruction or obstructive uropathy. Impression dictated by: Joy Magaña M.D. 03/16/2025 3:35 PM Dictation Location: [place] [address] Transcribed By: [facility] 03/16/25 1535 Dictated By: Joy Magaña II, MD 03/16/25 1525 Signed By: 03/16/25 1535 Normal [facility] Complete Blood Count Auto Di ffon 03-16-2025 Basophils (Bld) [#/Vol] 0.0 10*3/uL Normal 0.0-0.2 The [facility] Comment on above: Result Comment: PERF ORMED BY: [facility] [address] [place] [address] PATHOLOGIST [employer] SUPER[employer] REDDY GARNICA M.D. Performed By: #### M RSA - MSSA PCR #### [address] Basophils/100 WBC (Bld) 0.3 % Normal . T crystal [facility] Comment on above: Performed By: #### M RSA - MSSA PCR #### [address] Eosinophils (Bld) [#/Vol] 0.0 10*3/uL Normal 0.0-0.45 [facility] Comment on above: Performed By: #### M RSA - MSSA PCR #### [address] Eosinophils/100 WBC (Bld) 0.0 % Normal . [facility] Comment on above: Performed By: #### M RSA - MSSA PCR #### [address] Erythrocyte distribution width (RBC) [Ratio] 19.3 % High 11.9-15.3 [facility] Comment on above: Performed By: #### M RSA - MSSA PCR #### [address] Hematocrit (Bld) [Volume fraction] 29.8 % Low 34.0-46.4 [facility] Comment on above: Performed By: #### M RSA - MSSA PCR #### [address] Hemoglobin (Bld) [Mass/Vol] 9.6 g/dL Low 11.8-15.4 [facility] Comment on above: Performed By: #### M RSA - MSSA PCR #### [address] Lymphocytes (Bld) [#/Vol] 0.1 10*3/uL Low 1.00-4.8 [facility] Comment on above: Performed By: #### M RSA - MSSA PCR #### [address] Lymphocytes/100 WBC (Bld) 5.0 % Normal . [facility] Comment on above: Performed By: #### M RSA - MSSA PCR #### [address] MCH (RBC) [Entitic mass] 28.0 pg Normal 24.7-34.3 [facility] Comment on above: Performed By: #### M RSA - MSSA PCR #### [address] MCV (RBC) [Entitic vol] 87.1 fL Normal 80-100 T [facility] Comment on above: Performed By: #### M RSA - MSSA PCR #### [address] Mean Corpuscular HGB Conc 32.1 g/dL Normal 32.0-35.0 The [facility] Comment on above: Performed By: #### M RSA - MSSA PCR #### [address] Monocytes (Bld) [#/Vol] 0.1 10*3/uL Normal 0.0-0.8 The [facility] Comment on above: Performed By: #### M RSA - MSSA PCR #### [address] Monocytes/100 WBC (Bld) 3.3 % Normal . T [facility] Comment on above: Performed By: #### M RSA - MSSA PCR #### [address] Neutrophils (Bld) [#/Vol] 1.7 10*3/uL Low 1.8-7.7 [facility] Comment on above: Performed By: #### M RSA - MSSA PCR #### [address] Neutrophils/100 WBC (Bld) 91.4 % Normal . [facility] Comment on above: Performed By: #### M RSA - MSSA PCR #### [address] NRBC% 0.1 /100{WBC} Normal 0-0.5 The [facility] Comment on above: Performed By: #### M RSA - MSSA PCR #### [address] Platelet mean volume (Bld) [Entitic vol] 7.9 fL Normal 6.3-10.7 The [facility] Comment on above: Performed By: #### M RSA - MSSA PCR #### [address] Platelets (Bld) [#/Vol] 227 10*3/uL Normal 150-450 The [facility] Comment on above: Performed By: #### M RSA - MSSA PCR #### [address] RBC (Bld) [#/Vol] 3.42 10*6/uL Low 3.60-5.00 The [facility] Comment on above: Performed By: #### M RSA - MSSA PCR #### [address] WBC (Bld) [#/Vol] 1.8 10*3/uL Low 3.8-11.6 The [facility] Comment on above: Performed By: #### M RSA - MSSA PCR #### [address] White Blood Count 1.8 [CFU]/mL Low 3.8-11.6 The [facility] Comment on above: Performed By: #### M RSA - MSSA PCR #### [address] ECH echo transthoracicon ECH echo transthoracic [facility] [place] [address] [place] [address] Echocardiogram Signed Patient: Maice Cloud MR#: [id number] : 1975 Acct:[id number] Age/Sex: 49 / F ADM Date: 03/15/25 Loc: Room: [address] [place] [address] Type: ADM IN Attending Dr: Patrica Pfeiffer MD Ordering Provider: Lee Pichardo DO Date of Service: 03/15/2509/08/2357 ECH/ECH echo transthoracic: Chest Pain Copies to: Torin Jacobson MD Lee Espinal Marino AM Patient Location: : 1975 Gender: Female (MM/DD/YYYY) Age: 49 Years Ordering Physician: Lee Pichardo Height: 67 in Weight: 132.277 lb Performed By: PARTHA Crawford BSA: 1.70 m2 BP: 88 / 53 mmHg HR: 85 bpm Reason For Study: Chest Pain History: COPD, Smoker, marijuana use + ----+ Interpretation Summary Ejection Fraction = 50-55%. The left ventricular size and thickness are normal. A variety of Doppler measurements indicate normal left ventricular diastolic function. There is trace tricuspid regurgitation. There is no comparison study available. Procedure/Quality: A two-dimensional transthoracic echocardiogram with color flow, Doppler and injection of contrast agent Definity was performed. The study was technically suboptimal in quality due to poor acoustic windows . Left Ventricle: The left ventricular size and thickness are normal. Ejection Fraction = 50-55%. A variety of Doppler measurements indicate normal left ventricular diastolic function. Inadequate for wall motion assessment. Left Atrium: The left atrium appears normal in size. Right Atrium: The right atrium appears normal in size. Right Ventricle: The right ventricle is not well visualized. Borderline right ventricular enlargement. Aortic Valve: The aortic valve is normal in structure. No hemodynamically significant valvular aortic stenosis. No aortic regurgitation is present. Mitral Valve: The mitral valve is normal in structure. No significant mitral valve stenosis. There is no mitral regurgitation noted. Tricuspid Valve: The tricuspid valve is normal in structure. There is trace tricuspid regurgitation. Pulmonic Valve: The pulmonic valve is not well visualized. No significant pulmonic regurgitation. Arteries: The aortic root is normal size. Pericardium/Pleura: No pericardial effusion seen. IVC/Hepatic Veins: The IVC is dialted with an abnormal collapsibility index, this suggestive of increased right atrial pressure. MMode/2D Measurements Calculations IVSd (0.7-1.1 cm): 0.98 cm LVIDd (3.7-5.4 cm): 4.5 cm LVPWd (0.7-1.1 cm): 0.74 cm LVIDs (2.3-3.6 cm): 2.8 cm LA dimension (2.3-4.0 cm): 2.8 LVOT diam: 1.82 cm cm FS: 37.8 % LVOT area: 2.6 cm2 EDV(Teich): 92.1 ml Ao root area: 4.9 cm2 ESV(Teich): 29.4 ml Ao root diam (2.0-3.2 cm): 2.5 cm EF(Teich): 68.0 % LA A2 area: 13.0 cm2 LA A4 area: 13.9 cm2 LA length (vol): 4.6 cm LA vol: 33.3 ml LA vol index: 19.6 ml/m2 Doppler Measurements Calculations E/E' med: 8.6 Ao V2 max: 138.5 cm/sec E/E' lat: 7.6 Ao max P.7 mmHg MV E max lanny: 94.1 cm/sec Ao mean P.0 mmHg MV A max lanny: 99.4 cm/sec Ao V2 mean: 108.3 cm/sec MV E/A: 0.95 Ao V2 VTI: 29.1 cm DONA(I,D): 1.81 cm2 DONA(V,D): 1.63 cm2 MV V2 VTI: 23.8 cm MV mean P.58 mmHg MV V2 mean: 56.7 cm/sec MV dec time: 0.18 sec MV dec slope: 524.0 cm/sec?? LV V1 max: 86.8 cm/sec LV V1 max P.0 mmHg LV V1 mean: 56.4 cm/sec LV V1 mean P.51 mmHg LV V1 VTI: 20.2 cm + -+ + -+ + ---+ -+ : Electronically : : signed by: Torin : : : : Doron : : : : Indira : : : : on: 03/16/2025, : : 5:56 PM : + ---+ -+ Tech Comments No previous echo. TDS due to lung interference. Transcribed By: SCV Performed At: 03/16/25 0802 Signed By: Torin Jacobson MD 03/16/25 8622 Normal [facility] Ferritinon 03-16-2025 Ferritin [Mass/Vol] 113.3 ng/mL Normal 11.0-306.8 The [facility] Comment on above: Result Comment: PERF ORMED BY: [facility] [address] [place] [address] PATHOLOGIST [employer] SUPERVISOR REDDY GARNICA M.D. Performed By: #### C MG KIMBER #### [facility] [address] Ferritin [Mass/Vol] 108.7 ng/mL Normal 11.0-306.8 The [facility] Comment on above: Performed By: #### M RSA - MSSA PCR #### [place] [id number] [place] Ironon 03-16-2025 Iron [Mass/Vol] ug/dL Low 50-212 The [facility] Comment on above: Performed By: #### F ER, FE #### [address] Iron and TIBC Profileon 08-0 % Iron Saturation Not performed Normal 20-50 [facility] Comment on above: Performed By: #### M RSA - MSSA PCR #### [address] Iron [Mass/Vol] ug/dL Low 50-212 The [facility] Comment on above: Performed By: #### M RSA - MSSA PCR #### [address] Total Iron Binding Capacity 284 ug/dL Normal 255-450 [facility] Comment on above: Performed By: #### M RSA - MSSA PCR #### [address] Transferrin [Mass/Vol] 203 mg/dL Normal 203-362 Th e [facility] Comment on above: Performed By: #### M RSA - MSSA PCR #### [address] Lactic Acidon 03-16-2025 Lactate [Moles/Vol] 5.1 mmol/L Off scale high 0.5-1.9 T [facility] Comment on above: Result Comment: Crit ical Result : Called to and read back by: MANISH ROBERT at: 03/16/2025 15:00:03 by:LFM Lactic Acid reference range has been updated to 0.5 ? 1.9 mmol/L and the critical range of 2.0 or greater. PERFORMED BY: [place] [address] PATHOLOGIST [employer] SUPER[employer] REDDY GARNICA M.D. Performed By: #### C MP, MG #### [address] Lactic Acid Reflexon 025 Lactic Acid Reflex 2.7 mmol/L Off scale high 0.5-1.9 Th e [facility] Comment on above: Result Comment: Crit ical Result : Called to and read back by: MANISH ROBERT at: 03/16/2025 18:34:36 by:LFM Lactic Acid reference range has been updated to 0.5 ? 1.9 mmol/L and the critical range of 2.0 or greater. PERFORMED BY: [place] [address] PATHOLOGIST [employer] SUPER[employer] REDDY GARNICA M.D. Performed By: #### L ACTIC RFX #### [address] MRSA - MSSA Nasal PCRon MRSA - MSSA Nasal PCR MRSA Result MRSA Negative MSSA Result MSSA Positive Real-time PCR Test performed by real-time PCR Reference Range Reference Range for all targets = Neg / Not Detected Reference Note 20 ------ Reference Note 26 ------ PERFORMED BY: [place] [address] PATHOLOGIST [employer] SUPER[employer] REDDY GARNICA M.D. Normal [facility] Comment on above: Performed By: #### M RSA - MSSA PCR #### [address] Prealbuminon 03-16-2025 Prealbumin [Mass/Vol] 9.6 mg/dL Low 17.0-34.0 [facility] Comment on above: Performed By: #### M RSA - MSSA PCR #### [address] Vit. B12/Folate Profileon Cobalamin (Vitamin B12) [Mass/Vol] 695 pg/mL Normal 180-914 [facility] Comment on above: Performed By: #### M RSA - MSSA PCR #### [address] Folate 8.0 ng/mL Normal >5.9 [facility] Comment on above: Result Comment: Aggie te reference range: >5.9 ng/ml The WHO technical consultation on folate and vitamin b12 deficiencies has determined that folate concentrations less than 4 ng/ml are considered deficient. PERFORMED BY: [place] [address] PATHOLOGIST [employer] SUPER[employer] REDDY GARNICA M.D. Performed By: #### M RSA - MSSA PCR #### [address] XR pre/post mri xrayon 12-29 XR pre/post mri xray [facility] Main [place] [address] [place] [address] MRI Report Signed Patient: Macie Cloud MR#: [id number] : 1975 Acct:[id number] Age/Sex: 49 / F ADM Date: 12/29/24 Loc: Room: Type: [facility] Attending Dr: Lora Power MD Copies to: Lora Power MD Ordering Provider: Lora Power MD Date of Service: 12/29/24 MR/MR lumbar spine wo/w con: M54.16, M47.816 ([id number]) XR/XR pre/post mri xray: M47.816, M54.16 MRI [...] Dominguez M.D. 12/29/2024 12:35 PM Dictation Location: [place] [address] Transcribed By: [facility] 12/29/24 1235 Dictated By: Isaac Dominguez DO 12/29/24 1220 Signed By: 12/29/24 1235 Normal [facility] MR CERVICAL SPINE WO CONTRAS [...] as detailed. ELECTRONICALLY SIGNED BY: Lon Moura, DO Normal Not Available XR CHEST 2 VIEWSon [...] JOY LOVE MD at 17-Sep-2024 08:12:59 AM [facility] Normal Not Available XR RIBS 2 [...] Electronically Signed Joy Love M.D. 2024-05-22 10:14:26 [facility] [employer] Radiology Study observation (narrative) [facility] XR Ribs Views and Chest PAOr dered By: Joy Love on 05-22-2024 [facility] [employer] Work Phone: MR Lumbar spine WO contrasto n 05-09-2024 1. Status post multilevel laminectomies and posterior lumbar fusion from L2-L4. The left L3 transpedicular screw likely extends into the L2-[address] for further evaluation. 2. Resolution of spinal canal stenosis at L2-3. 3. Ugfe-dj-hjnsbcuz right neural foraminal narrowing at L5-S1, unchanged. [facility] RIS CONSOLIDATED EXAMINATION: MRI OF THE LUMBAR SPINE [...] foraminal narrowing. L5-S1: Facet arthropathy results in tyje-wz-rojhdbyu right neural foraminal narrowing, unchanged. No significant left neural foraminal narrowing. Alexis Kapoor MD - 05/09/2024 EXAMINATION: MRI OF THE [...] foraminal narrowing. L5-S1: Facet arthropathy results in fyzb-ay-ivvvpbzd right neural foraminal narrowing, unchanged. No significant left neural foraminal narrowing. IMPRESSION: 1. Status post multilevel laminectomies and posterior lumbar fusion from L2-L4. The left L3 transpedicular screw likely extends into the L2-[address] for further evaluation. 2. Resolution of spinal canal stenosis at L2-3. 3. Jwld-yd-pgcmqzea right neural foraminal narrowing at L5-S1, unchanged. [facility] MR Lumbar spine WO contrastO rdered By: Alexis Sanchez on 05-09-2024 [facility] Work Phone: MR Lumbar spine WO contrasto n 05-07-2024 Radiology Study observation (narrative) [facility] BUN + Creatinineon Creatinine [Mass/Vol] 0.4 mg/dL Low 0.5-0.9 [facility] Comment on above: Performed By: #### B UNCRT ####[facility] [id number] [facility], [place] [id number] lab Director: Zion Sweet MD GFR/1.73 sq M.predicted among non-blacks MDRD (S/P/Bld) [Vol rate/Area] mL/min/{1.73_m2} Normal >60 [facility] Comment on above: Result Comment: These [...] tubular secretion. Performed By: #### B UNCRT ####[facility] [id number] [facility].[place], [place] [id number] lab Director: Zion Sweet MD Urea nitrogen [Mass/Vol] 5 mg/dL Low 6-20 [facility] Comment on above: Performed By: #### B UNCRT ####[facility] Gks4742 [facility], [place] [id number] lab Director: Zion Sweet MD Basic Metab w/rfx MGon 09-28 Anion gap [Moles/Vol] 8 mmol/L Low 9-17 [facility] Comment on above: Performed By: #### B MPX, CDP ####[facility] Qbi0703 [facility] [place] [address] Lab Director: Zion Sweet MD BUN/CRE Ratio 14 Normal 9-20 [facility] Comment on above: Performed By: #### B MPX, CDP ####[facility] Gev5660 [facility] [place] [address] Lab Director: Zion Sweet MD Calcium [Mass/Vol] 8.8 mg/dL Normal 8.6-10.4 [facility] Comment on above: Performed By: #### B MPX, CDP ####[facility] Mpx4422 [facility] [place] [address] Lab Director: Zion Sweet MD Chloride [Moles/Vol] 99 mmol/L Normal 98-107 [facility] Comment on above: Performed By: #### B MPX, CDP ####[facility] Hxv4087 [facility] [place] [address] Lab Director: Zion Sweet MD CO2 [Moles/Vol] 29 mmol/L Normal 20-31 [facility] Comment on above: Performed By: #### B MPX, CDP ####[facility] Tkf1479 [facility] [place] [address] Lab Director: Zion Sweet MD Creatinine [Mass/Vol] 0.5 mg/dL Normal 0.5-0.9 [facility] Comment on above: Performed By: #### B MPX, CDP ####[facility] Trw1101 [facility] [place] [address] Lab Director: Zion Sweet MD GFR/1.73 sq M.predicted among non-blacks MDRD (S/P/Bld) [Vol rate/Area] mL/min/{1.73_m2} Normal >60 [facility] Comment on above: Result Comment: These results are not intended for use in patients <18 years of age. eGFR results are calculated without a race factor using the 1 CKD-EPI equation. Careful clinical correlation is recommended, particularly when comparing to results calculated using previous equations. The CKD-EPI equation is less accurate in patients with extremes of muscle mass, extra-renal metabolism of creatine, excessive creatine ingestion, or following therapy that affects renal tubular secretion. Performed By: #### B MPX, CDP ####[facility] [address], [place] [phone] Director: Zion Sweet MD Glucose [Mass/Vol] 100 mg/dL High 70-99 [facility] Comment on above: Performed By: #### B MPX, CDP ####[facility] Bdy9224 [facility] [place] [phone] Director: Zion Sweet MD Potassium [Moles/Vol] 4.0 mmol/L Normal 3.7-5.3 [facility] Comment on above: Performed By: #### B MPX, CDP ####[facility] Nbe37[address] [facility], [place] [phone] Director: Zion Sweet MD Sodium [Moles/Vol] 136 mmol/L Normal 135-144 [facility] Comment on above: Performed By: #### B MPX, CDP ####[facility] [address]ak[address] [facility] [place] [phone] Director: Zion Sweet MD Urea nitrogen [Mass/Vol] 7 mg/dL Normal 6-20 [facility] Comment on above: Performed By: #### B MPX, CDP ####[facility] Wzo[address] [place] [phone] Director: Zion Sweet MD CBC with Diffon 09-28-2023 Abs. Basophil <0.03 Normal 0.00-0.20 [facility] Comment on above: Performed By: #### B MPX, CDP ####[facility] Cjv[address] [facility] [place] [address] Lab Director: Zion Sweet MD Abs.Imm.Granulocyte 0.01 k/uL Normal 0.00-0.30 [facility] Comment on above: Performed By: #### B MPX, CDP ####[facility] Wry8466 [facility] [place] [address] Lab Director: Zion Sweet MD Abs.Neutrophil (Seg) 7.51 k/uL Normal 1.50-8.10 [facility] Comment on above: Performed By: #### B MPX, CDP ####[facility] [address] [place] [address].[place] [address] Lab Director: Zion Sweet MD Basophils/100 WBC (Bld) 0 % Normal 0-2 [facility] Comment on above: Performed By: #### B MPX, CDP ####[facility] [address] [place] [address].[place] [address] Lab Director: Zion Sweet MD Eosinophils (Bld) [#/Vol] 0.15 10*3/uL Normal 0.00-0.44 [facility] Comment on above: Performed By: #### B MPX, CDP ####[facility] [address] [place] [address].[place] [address] Lab Director: Zion Sweet MD Eosinophils/100 WBC (Bld) 2 % Normal 1-4 [facility] Comment on above: Performed By: #### B MPX, CDP ####[facility] [address] [place] [address].[place] [address] Lab Director: Zion Sweet MD Erythrocyte distribution width (RBC) [Ratio] 14.7 % High 11.8-14.4 [facility] Comment on above: Performed By: #### B MPX, CDP ####[facility] [address] [place] [address] Lab Director: Zion Sweet MD Hematocrit (Bld) [Volume fraction] 41.8 % Normal 36.3-47.1 [facility] Comment on above: Performed By: #### B MPX, CDP ####[facility] Zob[address] [facility] [place] [address] Lab Director: Zion Sweet MD Hemoglobin (Bld) [Mass/Vol] 12.9 g/dL Normal 11.9-15.1 [facility] Comment on above: Performed By: #### B MPX, CDP ####[facility] [address] [place], [place] [address]ia [facility] [place] [address] Lab Director: Zion Sweet MD Immature granulocytes/100 WBC (Bld) 0 % Normal 0 [facility] Comment on above: Performed By: #### B MPX, CDP ####[facility] [address] [place] [address].[place] [address] Lab Director: Zion Sweet MD Lymphocytes (Bld) [#/Vol] 1.89 10*3/uL Normal 1.10-3.70 [facility] Comment on above: Performed By: #### B MPX, CDP ####[facility] [address] [place] [address].[place] [address] Lab Director: Zion Sweet MD Lymphocytes/100 WBC (Bld) 19 % Low 24-43 [facility] Comment on above: Performed By: #### B MPX, CDP ####[facility] [address] [place] [address] Lab Director: Zion Sweet MD MCH (RBC) [Entitic mass] 30.5 pg Normal 25.2-33.5 [facility] Comment on above: Performed By: #### B MPX, CDP ####[facility] [address] [place] [address] Lab Director: Zion Sweet MD MCHC (RBC) [Mass/Vol] 30.9 g/dL Normal 28.4-34.8 [facility] Comment on above: Performed By: #### B MPX, CDP ####[facility] [address] [place] [address] Lab Director: Zion Sweet MD MCV (RBC) [Entitic vol] 98.8 fL Normal 82.6-102.9 [facility] Comment on above: Performed By: #### B MPX, CDP ####[facility] [address] [place] [address] Lab Director: Zion Sweet MD Monocytes (Bld) [#/Vol] 0.60 10*3/uL Normal 0.10-1.20 [facility] Comment on above: Performed By: #### B MPX, CDP ####[facility] [address] [place] [address] Lab Director: Zion Sweet MD Monocytes/100 WBC (Bld) 6 % Normal 3-12 [facility] Comment on above: Performed By: #### B MPX, CDP ####[facility] [address] [place] [address] Lab Director: Zion Sweet MD Neutrophil (Seg) 74 % High 36-65 [facility] Comment on above: Performed By: #### B MPX, CDP ####[facility] [address] [place] [address] Lab Director: Zion Sweet MD Platelet mean volume (Bld) [Entitic vol] 8.5 fL Normal 8.1-13.5 [facility] Comment on above: Performed By: #### B MPX, CDP ####[facility] [address] [place] [address] Lab Director: Zion Sweet MD Platelets (Bld) [#/Vol] 371 10*3/uL Normal 138-453 [facility] Comment on above: Performed By: #### B MPX, CDP ####[facility] Qya[address] [facility] [place] [address] Lab Director: Zion Sweet MD RBC (Bld) [#/Vol] 4.23 10*6/uL Normal 3.95-5.11 [facility] Comment on above: Performed By: #### B MPX, CDP ####[facility] Uyc3353 [facility] [place] [address] Lab Director: Zion Sweet MD RBC morphology finding Nom (Bld) ANISOCYTOSIS PRESENT Normal [facility] Comment on above: Performed By: #### B MPX, CDP ####[facility] Isk[address] [facility] [place] [address] Lab Director: Zion Sweet MD WBC (Bld) [#/Vol] 10.2 10*3/uL Normal 3.5-11.3 [facility] Comment on above: Performed By: #### B MPX, CDP ####[facility] Fta[address] [facility] [place] [address] Lab Director: Zion Sweet MD Lactic Acidon 09-28-2023 Lactate [Moles/Vol] 0.7 mmol/L Normal 0.5-2.2 [facility] Comment on above: Performed By: #### L ACTIC #### [facility] Lab [address] [place] [address] Ell Tutor: Zion Sweet MD MRI LUMBAR SPINE W WO CONTRA Rochelle 09-28-2023 MRI LUMBAR SPINE W WO CONTRAST [...] Divya Varner MD 09/28/23 Final result Normal [facility] Vancomycin,Randomon 09-28-19 Vancomycin 18.5 ug/mL Normal [facility] Comment on above: Result Comment: High er trough serum vancomycin concentrations of 15-20 ug/mL are recommended for complicated infections such as bacteremia, endocarditis, osteomyelitis, meningitis, and hospital acquired pneumonia. Performed By: #### V NCR ####[facility] Dxh3537 [facility] [place] [address] Lab Director: Zion Sweet MD C-Reactive Proteinon 024 CRP [Mass/Vol] 7.1 mg/L High 0.0-5.0 [facility] Comment on above: Performed By: #### C P, CRP, SED, CDP #### [facility] Lab [address] [facility] [place] [address] Ell Tutor: Zion Sweet MD CBC with Diffon 09-27-2023 Abs. Basophil <0.03 Normal 0.00-0.20 [facility] Comment on above: Performed By: #### C P, CRP, SED, CDP #### [facility] Lab [address] [place] [address] Ell Tutor: Zion Sweet MD Abs.Imm.Granulocyte 0.01 k/uL Normal 0.00-0.30 [facility] Comment on above: Performed By: #### C P, CRP, SED, CDP #### [facility] Lab [facility] [facility] [place] [address] Ell Tutor: Zion Sweet MD Abs.Neutrophil (Seg) 8.68 k/uL High 1.50-8.10 [facility] Comment on above: Performed By: #### C P, CRP, SED, CDP #### [facility] Lab [address] [place] [address]. [place] [address] Ell Tutor: Zion Sweet MD Basophils/100 WBC (Bld) 0 % Normal 0-2 M [facility] Comment on above: Performed By: #### C P, CRP, SED, CDP #### [facility] Lab [address] [place] [address]. [place] [address] Ell Tutor: Zion Sweet MD Eosinophils (Bld) [#/Vol] 0.12 10*3/uL Normal 0.00-0.44 [facility] Comment on above: Performed By: #### C P, CRP, SED, CDP #### [facility] Lab [address] [place] [address]. [place] [address] Ell Tutor: Zion Sweet MD Eosinophils/100 WBC (Bld) 1 % Normal 1-4 [facility] Comment on above: Performed By: #### C P, CRP, SED, CDP #### [facility] Lab [address] [place] [address]. [place] [address] Ell Tutor: Zion Sweet MD Erythrocyte distribution width (RBC) [Ratio] 14.7 % High 11.8-14.4 [facility] Comment on above: Performed By: #### C P, CRP, SED, CDP #### [facility] Lab [address] [place] [address]. [place] [address] Ell Tutor: Zion Sweet MD Hematocrit (Bld) [Volume fraction] 43.4 % Normal 36.3-47.1 [facility] Comment on above: Performed By: #### C P, CRP, SED, CDP #### [facility] Lab [facility] [place] [address] Ell Tutor: Zion Sweet MD Hemoglobin (Bld) [Mass/Vol] 13.7 g/dL Normal 11.9-15.1 [facility] Comment on above: Performed By: #### C P, CRP, SED, CDP #### [facility] Lab [address] [place] [address] Ell Tutor: Zion Sweet MD Immature granulocytes/100 WBC (Bld) 0 % Normal 0 [facility] Comment on above: Performed By: #### C P, CRP, SED, CDP #### [facility] Lab [address] [place] [address] Ell Tutor: Zion Sweet MD Lymphocytes (Bld) [#/Vol] 2.65 10*3/uL Normal 1.10-3.70 [facility] Comment on above: Performed By: #### C P, CRP, SED, CDP #### [facility] Lab [address] [place] [address] Ell Tutor: Zion Sweet MD Lymphocytes/100 WBC (Bld) 22 % Low 24-43 [facility] Comment on above: Performed By: #### C P, CRP, SED, CDP #### [facility] Lab [address] [place] [address] Ell Tutor: Zion Sweet MD MCH (RBC) [Entitic mass] 30.4 pg Normal 25.2-33.5 [facility] Comment on above: Performed By: #### C P, CRP, SED, CDP #### [facility] Lab [address] [facility] [place] [address] Ell Tutor: Zion Sweet MD MCHC (RBC) [Mass/Vol] 31.6 g/dL Normal 28.4-34.8 [facility] Comment on above: Performed By: #### C P, CRP, SED, CDP #### [facility] Lab [facility]4 [facility] [place] [address] Ell Tutor: Zion Sweet MD MCV (RBC) [Entitic vol] 96.2 fL Normal 82.6-102.9 [facility] Comment on above: Performed By: #### C P, CRP, SED, CDP #### [facility] Lab [facility]4 [facility] [place] [address] Ell Tutor: Zion Sweet MD Monocytes (Bld) [#/Vol] 0.62 10*3/uL Normal 0.10-1.20 [facility] Comment on above: Performed By: #### C P, CRP, SED, CDP #### [facility] Lab [address] [place] [address]. [place] [address] Ell Tutor: Zion Sweet MD Monocytes/100 WBC (Bld) 5 % Normal 3-12 [facility] Comment on above: Performed By: #### C P, CRP, SED, CDP #### [facility] Lab [address] [place] [address]. [place] [address] Ell Tutor: Zion Sweet MD Neutrophil (Seg) 72 % High 36-65 [facility] Comment on above: Performed By: #### C P, CRP, SED, CDP #### [facility] Lab [facility]4 [facility] [place] [address] Ell Tutor: Zion Sweet MD Platelet mean volume (Bld) [Entitic vol] 8.5 fL Normal 8.1-13.5 [facility] Comment on above: Performed By: #### C P, CRP, SED, CDP #### [facility] Lab [address] [place] [address] Ell Tutor: Zion Sweet MD Platelets (Bld) [#/Vol] 428 10*3/uL Normal 138-453 [facility] Comment on above: Performed By: #### C P, CRP, SED, CDP #### [facility] Lab [address] [place] [address] Ell Tutor: Zion Sweet MD RBC (Bld) [#/Vol] 4.51 10*6/uL Normal 3.95-5.11 [facility] Comment on above: Performed By: #### C P, CRP, SED, CDP #### [facility] Lab [address] [place], [place] [address]ia [facility] [place] [address] Ell Tutor: Zion Sweet MD RBC morphology finding Nom (Bld) ANISOCYTOSIS PRESENT Normal [facility] Comment on above: Performed By: #### C P, CRP, SED, CDP #### [facility] Lab [address] [place], [place] [address]ia [facility] [place] [address] Ell Tutor: Zion Sweet MD WBC (Bld) [#/Vol] 12.1 10*3/uL High 3.5-11.3 [facility] Comment on above: Performed By: #### C P, CRP, SED, CDP #### [facility] Lab [facility] [facility] [place] [address] Ell Tutor: Zion Sweet MD Comp Metabolic Profon 2023 Albumin [Mass/Vol] 4.0 g/dL Normal 3.5-5.2 [facility] Comment on above: Performed By: #### C P, CRP, SED, CDP #### [facility] Lab [address] [place] [address] Ell Tutor: Zion Sweet MD Alkaline Phos 119 U/L High 35-104 [facility] Comment on above: Performed By: #### C P, CRP, SED, CDP #### [facility] Lab [address] [place] [address] Ell Tutor: Zion Sweet MD ALT [Catalytic activity/Vol] 9 U/L Normal 5-33 [facility] Comment on above: Performed By: #### C P, CRP, SED, CDP #### [facility] Lab [facility] [facility] [place] [address] Ell Tutor: Zion Sweet MD Anion gap [Moles/Vol] 10 mmol/L Normal 9-17 [facility] Comment on above: Performed By: #### C P, CRP, SED, CDP #### [facility] Lab [facility] [facility] [place] [address] Ell Tutor: Zion Sweet MD AST [Catalytic activity/Vol] 12 U/L Normal <32 [facility] Comment on above: Performed By: #### C P, CRP, SED, CDP #### [facility] Lab [address] [place] [address]. [place] [address] Ell Tutor: Zion Sweet MD Bilirubin [Mass/Vol] 0.2 mg/dL Low 0.3-1.2 [facility] Comment on above: Performed By: #### C P, CRP, SED, CDP #### [facility] Lab [facility] [facility] [place] [address] Ell Tutor: Zion Sweet MD BUN/CRE Ratio Can not be calculated Normal 9-20 [facility] Comment on above: Performed By: #### C P, CRP, SED, CDP #### [facility] Lab [address] [place] [address] Ell Tutor: Zion Sweet MD Calcium [Mass/Vol] 9.3 mg/dL Normal 8.6-10.4 [facility] Comment on above: Performed By: #### C P, CRP, SED, CDP #### [facility] Lab [facility] [place] [address] Ell Tutor: Zion Sweet MD Chloride [Moles/Vol] 94 mmol/L Low 98-107 [facility] Comment on above: Performed By: #### C P, CRP, SED, CDP #### [facility] Lab [address] [place] [address]. [place] [address] Ell Tutor: Zion Sweet MD CO2 [Moles/Vol] 29 mmol/L Normal 20-31 [facility] Comment on above: Performed By: #### C P, CRP, SED, CDP #### [facility] Lab [address] [place] [address]. [place] [address] Ell Tutor: Zion Sweet MD Creatinine [Mass/Vol] mg/dL Low 0.5-0.9 [facility] Comment on above: Performed By: #### C P, CRP, SED, CDP #### [facility] Lab [address] [place] [address]. [place] [address] Ell Tutor: Zion Sweet MD eGFR Can not be calculated Normal >60 [facility] Comment on above: Result Comment: These results [...] #### C P, CRP, SED, CDP #### [facility] Lab [address] [place] [address] Ell Tutor: Zion Sweet MD Glucose [Mass/Vol] 111 mg/dL High 70-99 [facility] Comment on above: Performed By: #### C P, CRP, SED, CDP #### [facility] Lab [address] [place] [address] Ell Tutor: Zion Sweet MD Potassium [Moles/Vol] 3.5 mmol/L Low 3.7-5.3 [facility] Comment on above: Performed By: #### C P, CRP, SED, CDP #### [facility] Lab [address] [place] [address] Ell Tutor: Zion Sweet MD Protein [Mass/Vol] 6.9 g/dL Normal 6.4-8.3 [facility] Comment on above: Performed By: #### C P, CRP, SED, CDP #### [facility] Lab [address] [place] [address] Ell Tutor: Zion Sweet MD Sodium [Moles/Vol] 133 mmol/L Low 135-144 [facility] Comment on above: Performed By: #### C P, CRP, SED, CDP #### [facility] Lab [address] [place] [address] Ell Tutor: Zion Sweet MD Urea nitrogen [Mass/Vol] 7 mg/dL Normal 6-20 [facility] Comment on above: Performed By: #### C P, CRP, SED, CDP #### [facility] Lab [facility] [place] [address] Ell Tutor: Zion Sweet MD Lactic Acidon 09-27-2023 Lactate [Moles/Vol] 0.9 mmol/L Normal 0.5-2.2 [facility] Comment on above: Performed By: #### L ACTIC ####[facility] Gfe[address] [facility] [place] [address] Lab Director: Zion Sweet MD MRI HIP [...] by: Karen Montanez MD Signed by: Karen oMntanez MD 09/27/23 Final result Normal [facility] Sedimentation Rateon 024 Sedimentation Rate 15 mm/Hr Normal 0-30 [facility] Comment on above: Performed By: #### C P, CRP, SED, CDP #### [facility] Lab [address] [place] [address] Ell Tutor: Zion Sweet MD Automated epithelial cells c ount in urine sediment (number/area)Ordered By: Nabil Maya on 09-26-2023 Epithelial cells Auto (Urine sed) [#/Area] 5-9 [HPF] 0-2 [facility] Automated erythrocytes count in urine sediment (number/area)Ordered By: Nabil Maya on 09-26-2023 RBC Auto (Urine sed) [#/Area] 0-1 [HPF] 0-4 [facility] Automated leukocytes count i n urine sediment (number/area)Ordered By: Nabil Maya on 09-26-2023 WBC Auto (Urine sed) [#/Area] 10-19 [HPF] 0-4 [facility] Automated urine hyaline cast s count (number/volume)Ordered By: Nabil Maya on 09-26-2023 Hyaline casts Auto (U) [#/Vol] None seen [LPF] 0-1 [facility] Basophils Auto (Bld) [#/Vol] Ordered By: Nabil Maya on 09-26-2023 Basophils (Bld) [#/Vol] 0.1 10*3/uL 0.0-0.2 [facility] Basophils/100 WBC Auto (Bld) Ordered By: Nabil Maya on 09-26-2023 Basophils/100 WBC (Bld) 0.6 % . F [facility] Bilirubin Test strip Ql (U)O rdered By: Nabil Maya on 09-26-2023 Bilirubin Ql (U) Negative Negative [facility] Calcium [Mass/volume] in Ser um or PlasmaOrdered By: Nabil Maya on 09-26-2023 Calcium [Mass/Vol] 8.9 mg/dL 8.6-10.3 [facility] Carbon dioxide, total [Moles /volume] in Serum or PlasmaOrdered By: Nabil Maya on 09-26-2023 CO2 [Moles/Vol] 25.2 mmol/L 21.0-31.0 [facility] Chloride [Moles/volume] in S jayshree or PlasmaOrdered By: Nabil Maya on 09-26-2023 Chloride [Moles/Vol] 102 mmol/L 98-107 [facility] Color Auto (U)Ordered By: Lonnie Maya on 09-26-2023 Color (U) Yellow Yellow [facility] Creatinine [Mass/volume] in Serum or PlasmaOrdered By: Nabil Maya on 09-26-2023 Creatinine [Mass/Vol] 0.55 mg/dL 0.60-1.20 [facility] Eosinophils Auto (Bld) [#/Vo l]Ordered By: Nabil Maya on 09-26-2023 Eosinophils (Bld) [#/Vol] 0.1 10*3/uL 0.0-0.45 [facility] Eosinophils/100 WBC Auto (Bl d)Ordered By: Nabil Maya on 09-26-2023 Eosinophils/100 WBC (Bld) 1.0 % . [facility] System Erythrocyte distribution wid th Auto (RBC) [Ratio]Ordered By: Nabil Maya on 09-26-2023 Erythrocyte distribution width (RBC) [Ratio] 15.3 % 11.9-15.3 [facility] Glucose [Mass/volume] in Ser um or PlasmaOrdered By: Nabil Maya on 09-26-2023 Glucose [Mass/Vol] 112 mg/dL 70-100 [facility] Comment on above: ADA recommended refe rence rangeRandom Glucose Reference Range is dependent on time and content of last meal. Glucose of more than 200 mg/dL in a nonstressed, ambulatory subject supports the diagnosis of Diabetes Mellitus. Hematocrit Auto (Bld) [Volum e fraction]Ordered By: Nabil Maya on 09-26-2023 Hematocrit (Bld) [Volume fraction] 40.6 % 34.0-46.4 [facility] Hemoglobin [Mass/volume] in BloodOrdered By: Nabil Maya on 09-26-2023 Hemoglobin (Bld) [Mass/Vol] 13.7 g/dL 11.8-15.4 [facility] INR in Platelet poor plasma by Coagulation assayOrdered By: Nabil Maya on 09-26-2023 INR Coag (PPP) [Relative time] 0.9 {INR} [facility] Comment on above: INR Therapeutic Rang e [...] 09-26-2023 Ketones (U) [Mass/Vol] Negative Negative [facility] Lactate [Moles/volume] in Se rum or PlasmaOrdered By: Nabil Maya on 09-26-2023 Lactate [Moles/Vol] 0.8 mmol/L 0.5-2.2 [facility] Leukocytes [#/volume] correc rajani for nucleated erythrocytes in Blood by Automated counOrdered By: Nabil Maya on 09-26-2023 WBC corrected for nucl RBC Auto (Bld) [#/Vol] 11.5 10*3/uL 3.8-11.6 [facility] Lymphocytes Auto (Bld) [#/Vo l]Ordered By: Nabil Maya on 09-26-2023 Lymphocytes (Bld) [#/Vol] 3.3 10*3/uL 1.00-4.8 [facility] Lymphocytes/100 WBC Auto (Bl d)Ordered By: Nabil Maya on 09-26-2023 Lymphocytes/100 WBC (Bld) 28.2 % . [facility] MCH Auto (RBC) [Entitic mass ]Ordered By: Nabil Maya on 09-26-2023 MCH (RBC) [Entitic mass] 31.0 pg 24.7-34.3 [facility] MCHC Auto (RBC) [Mass/Vol]Or dered By: Nabil Maya on 09-26-2023 MCHC (RBC) [Mass/Vol] 33.7 g/dL 32.0-35.0 [facility] MCV Auto (RBC) [Entitic vol] Ordered By: Nabil Maya on 09-26-2023 MCV (RBC) [Entitic vol] 92.0 fL 80-100 [facility] Monocyte distribution width [Entitic volume] in Blood by AutomatedOrdered By: Nabil Maya on 09-26-2023 Monocyte distribution width Auto (Bld) [Entitic vol] 16.11 % 0.00-20.00 [facility] Monocytes Auto (Bld) [#/Vol] Ordered By: Nabil Maya on 09-26-2023 Monocytes (Bld) [#/Vol] 0.7 10*3/uL 0.0-0.8 [facility] Monocytes/100 WBC Auto (Bld) Ordered By: Nabil Maya on 09-26-2023 Monocytes/100 WBC (Bld) 5.6 % . F [facility] Neutrophils Auto (Bld) [#/Vo l]Ordered By: Nabil Maya on 09-26-2023 Neutrophils (Bld) [#/Vol] 7.4 10*3/uL 1.8-7.7 [facility] Neutrophils/100 WBC Auto (Bl d)Ordered By: Nabil Maya on 09-26-2023 Neutrophils/100 WBC (Bld) 64.6 % . [facility] Nitrite Test strip Ql (U)Ord ered By: Nabil Maya on 09-26-2023 Nitrite Ql (U) Positive Negative [facility] No Panel InformationOrdered By: Nabil Maya on 09-26-2023 Estimated GFR (CKD-EPI) > 60.0 mL/Min [facility] Creatinine Clearance (Chem 106.90 [facility] Nucleated erythrocytes [Pres ence] in Blood by Automated countOrdered By: Nabil Maya on 09-26-2023 Nucleated RBC Auto Ql (Bld) 0.1 /100{WBC} 0-0.5 [facility] Platelet mean volume Auto (B ld) [Entitic vol]Ordered By: Nabil Maya on 09-26-2023 Platelet mean volume (Bld) [Entitic vol] 6.9 fL 6.3-10.7 [facility] Platelets Auto (Bld) [#/Vol] Ordered By: Nabil Maya on 09-26-2023 Platelets (Bld) [#/Vol] 442 10*3/uL 150-450 [facility] Potassium [Moles/volume] in Serum or PlasmaOrdered By: Nabil Maya on 09-26-2023 Potassium [Moles/Vol] 3.5 mmol/L 3.5-5.1 [facility] Protein Auto test strip (U) [Mass/Vol]Ordered By: Nabil Maya on 09-26-2023 Protein (U) [Mass/Vol] Negative Negative [facility] Prothrombin time (PT)Ordered By: Nabil Maya on 09-26-2023 PT Coag (PPP) [Time] 10.3 s 9.0-12.9 [facility] Comment on above: A hematocrit value g reater than 55% may lead to inaccurate results in coagulation testing. Patients having hematocrit values >55% require a special collection tube for coagulation studies. Please contact the laboratory at [phone] for redraw instructions. RBC Auto (Bld) [#/Vol]Ordere d By: Nabil Maya on 09-26-2023 RBC (Bld) [#/Vol] 4.42 10*6/uL 3.60-5.00 [facility] Serum or plasma anion gap de terminationOrdered By: Nabil Maya on 09-26-2023 Anion gap [Moles/Vol] 11.3 mmol/L 6.0-15.0 [facility] Sodium [Moles/volume] in Ser um or PlasmaOrdered By: Nabil Maya on 09-26-2023 Sodium [Moles/Vol] 135 mmol/L 136-145 [facility] Specific gravity Auto test s trip (U) [Rel density]Ordered By: Nabil Maya on 09-26-2023 Specific gravity (U) [Rel density] 1.019 1.001-1.03 0 [facility] Urea nitrogen [Mass/volume] in Serum or PlasmaOrdered By: Nabil Maya on 09-26-2023 Urea nitrogen [Mass/Vol] 8 mg/dL 7-25 [facility] Urine bacteria detection by automated methodOrdered By: Nabil Maya on 09-26-2023 Bacteria Auto Ql (U) 4+ None Seen [facility] Urine clarity by refractomet ry automatedOrdered By: Nabil Maya on 09-26-2023 Clarity Refractometry automated (U) Slightly cloudy Clear [facility] Urine glucose measurement by automated test strip (mass/volume)Ordered By: Nabil Maya on 09-26-2023 Glucose Auto test strip (U) [Mass/Vol] Normal mg/dL Normal [facility] Urine hemoglobin detection b y automated test stripOrdered By: Nabil Maya on 09-26-2023 Hemoglobin Auto test strip Ql (U) Negative Negative [facility] Urine leukocyte esterase det ection by automated test stripOrdered By: Nabil Maya on 09-26-2023 Leukocyte esterase Auto test strip Ql (U) 3+ Negative [facility] Urobilinogen Auto test strip (U) [Mass/Vol]Ordered By: Nabil Maya on 09-26-2023 Urobilinogen (U) [Mass/Vol] Normal mg/dL Normal [facility] WBC Auto (Bld) [#/Vol]Ordere d By: Nabil Maya on 09-26-2023 WBC (Bld) [#/Vol] 11.5 10*3/uL 3.8-11.6 [facility] pH Auto test strip (U)Ordere d By: Nabil Maya on 09-26-2023 pH (U) 6.0 [pH] 5.0-9.0 [facility] FLUORO FOR SURGICAL PROCEDUR ESon 08-30-2023 FLUORO FOR SURGICAL PROCEDURES Radiology exam is complete. No Radiologist dictation. Please follow up with ordering provider. Final result Normal [facility] Basic Metabolic Profon 08-24 Anion gap [Moles/Vol] 10 mmol/L Normal - [facility] Comment on above: Performed By: #### B MP, CBC #### [facility] [address] [facility] [place] [address] Ell Tutor: Zion Sweet MD BUN/CRE Ratio 13 Normal - [facility] Comment on above: Performed By: #### B MP, CBC #### [facility] [address] [facility] [place] [address] Ell Tutor: Zion Sweet MD Calcium [Mass/Vol] 9.3 mg/dL Normal 8.6-10.4 [facility] Comment on above: Performed By: #### B MP, CBC #### [facility] [facility] [place] [address] Ell Tutor: Zion Sweet MD Chloride [Moles/Vol] 97 mmol/L Low 98-107 [facility] Comment on above: Performed By: #### B MP, CBC #### [facility] [address] [place] [address] Ell Tutor: Zion Sweet MD CO2 [Moles/Vol] 26 mmol/L Normal 20-31 [facility] Comment on above: Performed By: #### B MP, CBC #### [facility] [address] [facility] [place] [address] Ell Tutor: Zion Sweet MD Creatinine [Mass/Vol] 0.6 mg/dL Normal 0.5-0.9 [facility] Comment on above: Performed By: #### B KIMBER, CBC #### [facility] [address] [facility] [place] [address] Ell Tutor: Zion Sweet MD GFR/1.73 sq M.predicted among non-blacks MDRD (S/P/Bld) [Vol rate/Area] mL/min/{1.73_m2} Normal >60 [facility] Comment on above: Result Comment: These [...] Performed By: #### B MP, CBC #### [facility] [address] [facility] [place] [address] Ell Tutor: Zion Sweet MD Glucose [Mass/Vol] 99 mg/dL Normal 70-99 [facility] Comment on above: Performed By: #### B MP, CBC #### [facility] [address] [facility] [place] [address] Ell Tutor: Zion Sweet MD Potassium [Moles/Vol] 4.1 mmol/L Normal 3.7-5.3 [facility] Comment on above: Performed By: #### B MP, CBC #### [facility] [address] [facility] [place] [address] Ell Tutor: Zion Sweet MD Sodium [Moles/Vol] 133 mmol/L Low 135-144 [facility] Comment on above: Performed By: #### B MP, CBC #### [facility] [address] [place], [place] [address]ia [facility] [place] [address] Ell Tutor: Zion Sweet MD Urea nitrogen [Mass/Vol] 8 mg/dL Normal 6-20 [facility] Comment on above: Performed By: #### B MP, CBC #### [facility] [address] [place] [address]. [place] [address] Ell Tutor: Zion Sweet MD CBCon 08-24-2023 Erythrocyte distribution width (RBC) [Ratio] 15.0 % High 11.8-14.4 [facility] Comment on above: Performed By: #### B MP, CBC #### [facility] [address] [place] [address]. [place] [address] Ell Tutor: Zion Sweet MD Hematocrit (Bld) [Volume fraction] 41.4 % Normal 36.3-47.1 [facility] Comment on above: Performed By: #### B MP, CBC #### [facility] [facility] [place] [address] Ell Tutor: Zion Sweet MD Hemoglobin (Bld) [Mass/Vol] 13.7 g/dL Normal 11.9-15.1 [facility] Comment on above: Performed By: #### B MP, CBC #### [facility] [facility] [place] [address] Ell Tutor: Zion Sweet MD MCH (RBC) [Entitic mass] 30.8 pg Normal 25.2-33.5 [facility] Comment on above: Performed By: #### B MP, CBC #### [facility] [facility] [place] [address] Ell Tutor: Zion Sweet MD MCHC (RBC) [Mass/Vol] 33.1 g/dL Normal 28.4-34.8 [facility] Comment on above: Performed By: #### B MP, CBC #### [facility] [address] [place] [address] Ell Tutor: Zion Sweet MD MCV (RBC) [Entitic vol] 93.0 fL Normal 82.6-102.9 [facility] Comment on above: Performed By: #### B MP, CBC #### [facility] [address] [place] [address] Ell Tutor: Zion Sweet MD NRBC Automated 0.0 per 100 WBC Normal 0.0 [facility] Comment on above: Performed By: #### B MP, CBC #### [facility] [address] [place] [address] Ell Tutor: Zion Sweet MD Platelet mean volume (Bld) [Entitic vol] 8.9 fL Normal 8.1-13.5 [facility] Comment on above: Performed By: #### B MP, CBC #### [facility] [address] [place] [address] Ell Tutor: Zion Sweet MD Platelets (Bld) [#/Vol] 369 10*3/uL Normal 138-453 [facility] Comment on above: Performed By: #### B MP, CBC #### [facility] [address] [place] [address] Ell Tutor: Zion wSeet MD RBC (Bld) [#/Vol] 4.45 10*6/uL Normal 3.95-5.11 [facility] Comment on above: Performed By: #### B MP, CBC #### [facility] [address] [place], [place] [address] Ell Tutor: Zion Sweet MD WBC (Bld) [#/Vol] 6.2 10*3/uL Normal 3.5-11.3 [facility] Comment on above: Performed By: #### B MP, CBC #### [facility] [address] [facility] [place], [place] [address] Ell Tutor: Zion Sweet MD Outside Records Officeon Outside Records Office [id number]#1.00TIF F Normal [facility] Referrals Officeon 3 Referrals Office [id number]#1.00TIF F Normal [facility] Outside Records Officeon Outside Records Office [id number]#1.00CD :127 Normal [facility] Radiology Outside Office [employer] yon 04-13-2023 Radiology Outside Office Copy [id number]#1.00CD :127 Normal [facility] Referrals Officeon 3 Referrals Office [id number]#1.00C D:127 Normal [facility] Basophils Auto (Bld) [#/Vol] Ordered By: Eloy Mcdaniel on 04-12-2023 Basophils (Bld) [#/Vol] 0.0 10*3/uL 0.0-0.2 [facility] Basophils/100 WBC Auto (Bld) Ordered By: Eloy Mcdaniel on 04-12-2023 Basophils/100 WBC (Bld) 0.4 % . F [facility] Calcium [Mass/volume] in Ser um or PlasmaOrdered By: Eloy Mcdaniel on 04-12-2023 Calcium [Mass/Vol] 10.2 mg/dL 8.6-10.3 [facility] Carbon dioxide, total [Moles /volume] in Serum or PlasmaOrdered By: Eloy sharon on 04-12-2023 CO2 [Moles/Vol] 31.4 mmol/L 21.0-31.0 [facility] Chloride [Moles/volume] in S jayshree or PlasmaOrdered By: Eloy Mcdaniel on 04-12-2023 Chloride [Moles/Vol] 99 mmol/L 98-107 [facility] Consent for Treatmenton 03-16 Consent for Treatment [id number]#1.00CD :127 Normal [facility] Consultation Noteon 04-12-20 Consultation Note Patient: MACIE CLOUD Age: 47 years Sex: Female : 1975 Associated Diagnoses: None Author: Whit BONILLA, Star Perez Basic Information Accompanied by: No one. Source of history: Self. Referral source: CHELO BONILLA, SOBEIDA Hernández History limitation: None. Chief Complaint 04/12/2023 13:27 [...] list: All Problems Anxiety / SNOMED CT 63542065 / Confirmed Chronic neck pain with history of cervical spinal surgery / SNOMED CT 8911573227 / Confirmed COPD (chronic obstructive pulmonary disease) / SNOMED CT 43297237 / Confirmed Depression / SNOMED CT 06311049 / Confirmed Heartburn / SNOMED CT 78963950 / Confirmed Smoker / SNOMED CT 348154227 / Confirmed Added secondary to documentation in Social History. Thoracic outlet syndrome to both arms / SNOMED CT 656021901 / Confirmed Histories Past Medical History: No active or resolved past medical history items have been selected or recorded. Family History: Clot Mother () Procedure history: Fusion of lumbar spine (181285826) on 01/19/2021 at 45 Years. Cervical spinal fusion (710722092) on 10/30/2019 at 44 Years. Appendectomy (990732777). History of cervical spine surgery (9817937022). Comments: 07/31/2019 14:14 SISSY Cadet RN, Mary Kate Alfaro C4-6 fusion section (42264754). H/O: hysterectomy (788000252). Ankle (0077875). Comments: 07/31/2019 14:16 SISSY Cadet RNMary Kate Left ankle Fusion of lumbar spine (530637212). Comments: 07/31/2019 14:17 SISSY Cadet RNMary Kate L4-5 fusion and replacement H/O: tubal ligation (777918006). Social History Social & Psychosocial Habits Alcohol [...] 54.7 kg (APR 12:) BMI 18.93 (APR 12 13:) General: Tearful. Alert and oriented x3. Thin. [...] cord. Impre (more content not included)... Normal [facility] Comment on above: Result Comment: Elec tronically Signed By: Whit BONILLA, Star Gutierrez.esdras\Date and Time Signed: 04/12/23 14:34 EDT Creatinine [Mass/volume] in Serum or PlasmaOrdered By: Eloy Mcdaniel on 04-12-2023 Creatinine [Mass/Vol] 0.64 mg/dL 0.60-1.20 [facility] Eosinophils Auto (Bld) [#/Vo l]Ordered By: Eloy Mcdaniel on 04-12-2023 Eosinophils (Bld) [#/Vol] 0.0 10*3/uL 0.0-0.45 [facility] Eosinophils/100 WBC Auto (Bl d)Ordered By: Eloy Mcdaniel on 04-12-2023 Eosinophils/100 WBC (Bld) 0.1 % . [facility] Erythrocyte distribution wid th Auto (RBC) [Ratio]Ordered By: Eloy Mcdaniel on 04-12-2023 Erythrocyte distribution width (RBC) [Ratio] 16.8 % 11.9-15.3 [facility] Glucose [Mass/volume] in Ser um or PlasmaOrdered By: Eloy Mcdaniel on 04-12-2023 Glucose [Mass/Vol] 103 mg/dL 70-100 [facility] Comment on above: ADA recommended refe rence rangeRandom Glucose Reference Range is dependent on time and content of last meal. Glucose of more than 200 mg/dL in a nonstressed, ambulatory subject supports the diagnosis of Diabetes Mellitus. HIPAA Forms Officeon 023 HIPAA Forms Office [id number]#1.00C D:127 Normal [facility] Hematocrit Auto (Bld) [Volum e fraction]Ordered By: Eloy Mcdaniel on 04-12-2023 Hematocrit (Bld) [Volume fraction] 40.3 % 34.0-46.4 [facility] Hemoglobin [Mass/volume] in BloodOrdered By: Eloy Mcdaniel on 04-12-2023 Hemoglobin (Bld) [Mass/Vol] 13.3 g/dL 11.8-15.4 [facility] Legal Correspondence Officeo n 04-12-2023 Legal Correspondence Office [id number]#1.00C D:127 Normal [facility] Legal Correspondence Office [id number]#1.00C D:127 Normal [facility] Leukocytes [#/volume] correc rajani for nucleated erythrocytes in Blood by Automated counOrdered By: Eloy Mcdaniel on 04-12-2023 WBC corrected for nucl RBC Auto (Bld) [#/Vol] 10.3 10*3/uL 3.8-11.6 [facility] Lymphocytes Auto (Bld) [#/Vo l]Ordered By: Eloy Mcdaniel on 04-12-2023 Lymphocytes (Bld) [#/Vol] 3.1 10*3/uL 1.00-4.8 [facility] Lymphocytes/100 WBC Auto (Bl d)Ordered By: Eloy Mcdaniel on 04-12-2023 Lymphocytes/100 WBC (Bld) 30.1 % . [facility] MCH Auto (RBC) [Entitic mass ]Ordered By: Eloy Mcdaniel on 04-12-2023 MCH (RBC) [Entitic mass] 29.6 pg 24.7-34.3 [facility] MCHC Auto (RBC) [Mass/Vol]Or dered By: Eloy Mcdaniel on 04-12-2023 MCHC (RBC) [Mass/Vol] 32.9 g/dL 32.0-35.0 [facility] MCV Auto (RBC) [Entitic vol] Ordered By: Eloy Mcdaniel on 04-12-2023 MCV (RBC) [Entitic vol] 89.9 fL 80-100 [facility] Monocytes Auto (Bld) [#/Vol] Ordered By: Eloy Mcdaniel on 04-12-2023 Monocytes (Bld) [#/Vol] 0.8 10*3/uL 0.0-0.8 [facility] Monocytes/100 WBC Auto (Bld) Ordered By: Eloy Mcdaniel on 04-12-2023 Monocytes/100 WBC (Bld) 7.6 % . [facility] Neutrophils Auto (Bld) [#/Vo l]Ordered By: Eloy Mcdaniel on 04-12-2023 Neutrophils (Bld) [#/Vol] 6.4 10*3/uL 1.8-7.7 [facility] Neutrophils/100 WBC Auto (Bl d)Ordered By: Eloy Mcdaniel on 04-12-2023 Neutrophils/100 WBC (Bld) 61.8 % . [facility] No Panel InformationOrdered By: Eloy Mcdaniel on 04-12-2023 Estimated GFR (CKD-EPI) > 60.0 mL/Min [facility] Creatinine Clearance (Chem N/A [facility] Nucleated erythrocytes [Pres ence] in Blood by Automated countOrdered By: Eloy Mcdaniel on 04-12-2023 Nucleated RBC Auto Ql (Bld) 0.1 /100{WBC} 0-0.5 [facility] Office/Clinic Note-Physician on 04-12-2023 Office/Clinic Note-Physician [id number]#1.00C D:127 Normal [facility] Patient Correspondenceon Patient Correspondence [id number]#1.00C D:127 Normal [facility] Patient Correspondence [id number]#1.00C D:127 Normal [facility] Patient Correspondence [id number]#1.00C D:127 Normal [facility] Patient Correspondence [id number]#1.00C D:127 Normal [facility] Patient Correspondence [id number]#1.00C D:127 Normal [facility] Patient History Officeon Patient History Office [id number]#1.00C D:127 Normal [facility] Platelet mean volume Auto (B ld) [Entitic vol]Ordered By: Eloy Mcdaniel on 04-12-2023 Platelet mean volume (Bld) [Entitic vol] 8.2 fL 6.3-10.7 [facility] Platelets Auto (Bld) [#/Vol] Ordered By: Eloy Mcdaniel on 04-12-2023 Platelets (Bld) [#/Vol] 433 10*3/uL 150-450 [facility] Potassium [Moles/volume] in Serum or PlasmaOrdered By: Eloy Mcdaniel on 04-12-2023 Potassium [Moles/Vol] 3.7 mmol/L 3.5-5.1 [facility] RBC Auto (Bld) [#/Vol]Ordere d By: Eloy Mcdaniel on 04-12-2023 RBC (Bld) [#/Vol] 4.49 10*6/uL 3.60-5.00 [facility] Radiology Outside Office [employer] yon 04-12-2023 Radiology Outside Office Copy [id number]#1.00C D:127 Normal [facility] Radiology Outside Office Copy [id number]#1.00C D:127 Normal [facility] Radiology Outside Office Copy [id number]#1.00C D:127 Normal [facility] Radiology Outside Office Copy [id number]#1.00C D:127 Normal [facility] Radiology Outside Office Copy [id number]#1.00C D:127 Normal [facility] Radiology Outside Office Copy [id number]#1.00C D:127 Normal [facility] Serum or plasma anion gap de terminationOrdered By: Eloy Mcdaniel on 04-12-2023 Anion gap [Moles/Vol] 12.3 mmol/L 6.0-15.0 [facility] Sodium [Moles/volume] in Ser um or PlasmaOrdered By: Eloy Mcdaniel on 04-12-2023 Sodium [Moles/Vol] 139 mmol/L 136-145 [facility] Thyrotropin [Units/volume] i n Serum or PlasmaOrdered By: Eloy Mcdaniel on 04-12-2023 TSH Qn 1.21 m[IU]/L 0.45-5.33 [facility] Thyroxine (T4) free [Mass/vo lume] in Serum or PlasmaOrdered By: Eloy Mcdaniel on 04-12-2023 Free T4 [Mass/Vol] 0.79 ng/dL 0.61-1.12 [facility] Urea nitrogen [Mass/volume] in Serum or PlasmaOrdered By: Eloy Mcdaniel on 04-12-2023 Urea nitrogen [Mass/Vol] 7 mg/dL 7- [facility] WBC Auto (Bld) [#/Vol]Ordere d By: Eloy Mcdaniel on 04-12-2023 WBC (Bld) [#/Vol] 10.3 10*3/uL 3.8-11.6 [facility] Outside Records Officeon Outside Records Office [id number]#1.00CD :127 Normal [facility] Radiology Outside Office [employer] yon 03-22-2023 Radiology Outside Office Copy [id number]#1.00CD :127 Normal [facility] Referrals Officeon Referrals Office [id number]#1.00CD :127 Normal [facility] CNPNon 11-09-2022 CNPN Telephone (WIQ) -------- MACIE CLOUD ([id number]) 1975 F Date Time Provider Department 11/09/22 CATHI DIA During your visit today, we recorded the following information about you: Cathi WagnernsFormerly [facility] 11/09/2022 9:26 AM Signed Smoking Cessation Navigation Outcome of contact: Left Message Comments: A voicemail has been left for this patient regarding Tobacco Cessation support options. If this patient has any further questions they can email us at [email or web address] or call us at [phone]. [facility]/Smoking Cessation Navigator: Cathi Shayan aMrtínezFormerly [facility] [facility] Allergies As of Date: 11/09/2022 (No Known [...] Status:Closed by CATHI DIA on 11/09/22 Normal [facility] Alanine aminotransferase [En zymatic activity/volume] in Serum or PlasmaOrdered By: Hussain Cristobal on 10-28-2022 ALT [Catalytic activity/Vol] 21 U/L 7-52 [facility] Albumin [Mass/volume] in Ser um or Plasma by Bromocresol green (BCG) dye binding methoOrdered By: Hussain Cristobal on 10-28-2022 Albumin BCG dye [Mass/Vol] 4.5 g/dL 3.5-5.7 [facility] Alkaline phosphatase [Enzyma tic activity/volume] in Serum or PlasmaOrdered By: Hussain Cristobal on 10-28-2022 ALP [Catalytic activity/Vol] 91 U/L 34-104 [facility] Aspartate aminotransferase [ Enzymatic activity/volume] in Serum or PlasmaOrdered By: Hussain Cristobal on 10-28-2022 AST [Catalytic activity/Vol] 26 U/L 13-39 [facility] Basophils Auto (Bld) [#/Vol] Ordered By: Hussain Cristobal on 10-28-2022 Basophils (Bld) [#/Vol] 0.0 10*3/uL 0.0-0.2 [facility] Basophils/100 WBC Auto (Bld) Ordered By: Hussain Cristobal on 10-28-2022 Basophils/100 WBC (Bld) 0.2 % . [facility] Bilirubin.total [Mass/volume ] in Serum or PlasmaOrdered By: Hussain Cristobal 10-28-2022 Bilirubin [Mass/Vol] 0.3 mg/dL 0.3-1.0 [facility] Calcium [Mass/volume] in Ser um or PlasmaOrdered By: Hussain Cristobal 10-28-2022 Calcium [Mass/Vol] 9.8 mg/dL 8.6-10.3 [facility] Carbon dioxide, total [Moles /volume] in Serum or PlasmaOrdered By: Hussain Cristobal 10-28-2022 CO2 [Moles/Vol] 28.9 mmol/L 21.0-31.0 [facility] Chloride [Moles/volume] in S jayshree or PlasmaOrdered By: Hussain Cristboal 10-28-2022 Chloride [Moles/Vol] 97 mmol/L 98-107 [facility] Creatinine [Mass/volume] in Serum or PlasmaOrdered By: Hussain Cristobal on 10-28-2022 Creatinine [Mass/Vol] 0.62 mg/dL 0.60-1.20 [facility] Eosinophils Auto (Bld) [#/Vo l]Ordered By: Hussain Cristobal on 10-28-2022 Eosinophils (Bld) [#/Vol] 0.0 10*3/uL 0.0-0.45 [facility] Eosinophils/100 WBC Auto (Bl d)Ordered By: Hussain Cristobal on 10-28-2022 Eosinophils/100 WBC (Bld) 0.0 % . [facility] Erythrocyte distribution wid th Auto (RBC) [Ratio]Ordered By: Hussain Cristobal on 10-28-2022 Erythrocyte distribution width (RBC) [Ratio] 15.8 % 11.9-15.3 [facility] Globulin Calc (S) [Mass/Vol] Ordered By: Hussain Cristobal on 10-28-2022 Globulin (S) [Mass/Vol] 3.4 g/dL [facility] Glucose [Mass/volume] in Ser um or PlasmaOrdered By: Hussain Cristobal on 10-28-2022 Glucose [Mass/Vol] 123 mg/dL 74-109 [facility] Comment on above: ADA recommended refe rence rangeRandom Glucose Reference Range is dependent on time and content of last meal. Glucose of more than 200 mg/dL in a nonstressed, ambulatory subject supports the diagnosis of Diabetes Mellitus. Hematocrit Auto (Bld) [Volum e fraction]Ordered By: Hussain Cristobal on 10-28-2022 Hematocrit (Bld) [Volume fraction] 38.6 % 34.0-46.4 [facility] Hemoglobin [Mass/volume] in BloodOrdered By: Hussain Cristobal on 10-28-2022 Hemoglobin (Bld) [Mass/Vol] 12.9 g/dL 11.8-15.4 [facility] Laboratory - Chemistry and C hemistry - challengeOrdered By: Hussain Cristobal on 10-28-2022 GFR/1.73 sq M.predicted MDRD (S/P/Bld) [Vol rate/Area] mL/min/{1.73_m2} [facility] Leukocytes [#/volume] correc rajani for nucleated erythrocytes in Blood by Automated counOrdered By: Hussain Cristobal on 10-28-2022 WBC corrected for nucl RBC Auto (Bld) [#/Vol] 13.4 10*3/uL 3.8-11.6 [facility] Lymphocytes Auto (Bld) [#/Vo l]Ordered By: Hussain Cristobal on 10-28-2022 Lymphocytes (Bld) [#/Vol] 1.3 10*3/uL 1.00-4.8 [facility] Lymphocytes/100 WBC Auto (Bl d)Ordered By: Hussain Cristobal on 10-28-2022 Lymphocytes/100 WBC (Bld) 10.0 % . [facility] MCH Auto (RBC) [Entitic mass ]Ordered By: Hussain Cristobal on 10-28-2022 MCH (RBC) [Entitic mass] 29.6 pg 24.7-34.3 [facility] MCHC Auto (RBC) [Mass/Vol]Or dered By: Hussain Cristobal on 10-28-2022 MCHC (RBC) [Mass/Vol] 33.4 g/dL 32.0-35.0 [facility] MCV Auto (RBC) [Entitic vol] Ordered By: Hussain Cristobal on 10-28-2022 MCV (RBC) [Entitic vol] 88.7 fL 80-100 [facility] Monocyte distribution width [Entitic volume] in Blood by AutomatedOrdered By: Hussain Cristobal on 10-28-2022 Monocyte distribution width Auto (Bld) [Entitic vol] 13.39 % 0.00-20.00 [facility] Monocytes Auto (Bld) [#/Vol] Ordered By: Hussain Cristobal on 10-28-2022 Monocytes (Bld) [#/Vol] 0.2 10*3/uL 0.0-0.8 [facility] Monocytes/100 WBC Auto (Bld) Ordered By: Hussain Cristobal on 10-28-2022 Monocytes/100 WBC (Bld) 1.9 % . [facility] Neutrophils Auto (Bld) [#/Vo l]Ordered By: Hussain Cristobal on 10-28-2022 Neutrophils (Bld) [#/Vol] 11.8 10*3/uL 1.8-7.7 [facility] Neutrophils/100 WBC Auto (Bl d)Ordered By: Hussain Cristobal on 10-28-2022 Neutrophils/100 WBC (Bld) 87.9 % . [facility] No Panel InformationOrdered By: Hussain Cristobal on 10-28-2022 Pharmacy Creatinine Clearance (Chem 91.96 [facility] Nucleated erythrocytes [Pres ence] in Blood by Automated countOrdered By: Hussain Cristobal on 10-28-2022 Nucleated RBC Auto Ql (Bld) 0.0 /100{WBC} 0-0.5 [facility] Platelet mean volume Auto (B ld) [Entitic vol]Ordered By: Hussain Cristobal on 10-28-2022 Platelet mean volume (Bld) [Entitic vol] 6.9 fL 6.3-10.7 [facility] Platelets Auto (Bld) [#/Vol] Ordered By: Hussain Cristobal on 10-28-2022 Platelets (Bld) [#/Vol] 528 10*3/uL 150-450 [facility] Potassium [Moles/volume] in Serum or PlasmaOrdered By: Hussain Cristobal on 10-28-2022 Potassium [Moles/Vol] 4.1 mmol/L 3.5-5.1 [facility] Protein [Mass/volume] in Ser um or PlasmaOrdered By: Hussain Cristobal on 10-28-2022 Protein [Mass/Vol] 7.9 g/dL 6.4-8.9 [facility] RBC Auto (Bld) [#/Vol]Ordere d By: Hussain Cristobal on 10-28-2022 RBC (Bld) [#/Vol] 4.36 10*6/uL 3.60-5.00 [facility] Serum or plasma albumin/glob ulin mass ratioOrdered By: Hussain Cristobal on 10-28-2022 Albumin/Globulin [Mass ratio] 1.3 {ratio} [facility] Serum or plasma anion gap de terminationOrdered By: Hussain Cristobal on 10-28-2022 Anion gap [Moles/Vol] 13.2 mmol/L 6.0-15.0 [facility] Sodium [Moles/volume] in Ser um or PlasmaOrdered By: Hussain Cristobal on 10-28-2022 Sodium [Moles/Vol] 135 mmol/L 136-145 [facility] Urea nitrogen [Mass/volume] in Serum or PlasmaOrdered By: Hussain Cristobal on 10-28-2022 Urea nitrogen [Mass/Vol] 10 mg/dL 7-25 [facility] WBC Auto (Bld) [#/Vol]Ordere d By: Hussain Cristobal on 10-28-2022 WBC (Bld) [#/Vol] 13.4 10*3/uL 3.8-11.6 [facility] Coding Summaryon 10-13-2022 Coding Summary HTMLBase 64 OdsssoieEAk5iZx+PGhlYWQ+ IU8VXICaY00bqEQopF4TD6uR KL3HBDJGUOQHAV1WPS9pjFD6 UElhU1OqifCl PqntjJJlTP94DPe5VCW3uXjo FTicwJ0kaMAbP3t3DcVcQK25 qC67AFiiPMDiFuN8KcPlxkpy bWFy Q7wbZoMnnIQlQqu+PHRhYmxl IHdpZHRoPScxMDAlJyBzdHls RE8oAr5mRCAfLDDvxBdwrUMp OiBj w5jtJLVgSPwkWJ6jeLbuF6Ep hYZ1EPLkj4d5Dd97nJN+PHRk CIZ9lPjdLEkdi366JiAly2et IDM3 aSYgAZnaUCH7M52he0M9MEOj SDMoJYT6rQO7wR6jgCmdzzui Z7OsaBLiSaX9SAC6iBNamG5t bGln zkvcmJ1wXcf+S63MPS5VTOXM JR0TJqc8B2FpLrbwyMO+PC90 CKQwFN22gFDjaWCkj0egnYz0 JzEw HLJyBZP5vVeuZShli4JvAODr P50lvSMld6O4OQLbiOpimEWz TxMsxWX8bW5tINuqijewf7ye dzsn Fgpjm2ooaf10vK61M00zZAzi XQRhRKZ1VQEtFEXstZvcxf8o rJ8iOt5+GKkkb0qkb7vkxHu2 IjIw TQLfzoJlqWvwVTI4m2MwPf89 J9OhzEnox5IzLyh9ch43dHHg h3I6qQH5JIazKCFygS4rSYjx ZnQ6 HKIfCaYnwC17aRObLVbqWp1p hXmgoAkeCL4oVPLwoeeiGCAi nO5kRYWbcIYljCcmIP3pHNNr bjtm v994YtAuXBX6BTRfmQMsE1Oa eV4rGqWjHPZrBNFtM6OoeUBf WZhuM802JNudSmJ7BPZtljLe Y2Fs LBHaaJqoIsO7b3R7Ix9Eq3Jr ayrrYYZ9QDyuSYBaEcFmNiFh DtS9X0ReAvi3WRZcfXwtNS1z J3Bh DTUyjqyginmhzQR9AOAfMIJj tP05ePEzAMntGw5gy6M2p976 GCVfRFLaeT48Iu0vrWrfSZRd dCBU gN5lrbcck5eanfjeIkDuSBKc HPc3MCq2UGCsbBvhJfRzGPI3 QgU3INA8pRVxiR5ufFwcwtpi dG9w Oyc+O06rlS4tXYN9DIO9rwvs IROtsdFyQY30JW74T4AtYeii dGFibGU+NNPewnNfiVmkSB3d YmFj b0gtb1KjHBxnN9MlNCKxYBwg Bxr5UIShZRL4fWZ4pG9wWTPd IGjfo9T5uRT5A9KyaxWyal0y b2xs WVNuXVhpO46fkLOxz6I2QTMz xFN5OBPkgLpyIjCjxT39Jkn+ JEBpeKsaz5RaOjald3brw7vd dGg9 KnDlZCNwkmStcMrgWGE4d7Kp Nd34L88fNCjjJILoKPIkOYNc ASTtlDyfmb1oeD4fLn6+PGNv bCB3 dIM3eQ6pJTHfUoR3WZjdH691 ToZonYPdRzhoj6tmn0ucfOr1 XfTdFWFhlaHdqSmeMUE1v6Nx Lz48 E28uWRbyGXLcZDTcGJBbMQLs rUiico3nrP9pSl4+AN7bv1ko mn80nU12cTN+JRMaPNX1uYjz PSdw JTGypH5wVFzdIdG2EQWzDsLj tW79pIVrFYbaLz3doHqdjQfq MG2lDWRgmbxta127AfCqk3ex IDEw eQYlJOvzFOP4M98hr9Y4RASz YRWoZEM2wZX0mY9qyDzaejrh bGVmdDsgdmVydGljYWwtYWxp Z246 IHRvcDsnPlBhdGllbnQgTmFt VMu4R2QqWav7VVLwiNcyCK8j oGZzTAwuOp1huRfweQwzUM2k NTBp ybwuh788CrTka6wgLSWrtUAk YZwmBUJ7E09la1Q2NIVlWASs IVY0uAP3qX0jvQsfpfgrjRWi dDsg jdEkpAypFQooCCtzX653AQFe lVtmWlSjkxWjOYMpbJR2ZJ62 NB98jBYtj3B0jNU8F2DtDYWe bmct nxdxsOL8WUWgUTLgvP09Hj3m iAyrUc1sTPDeOFC4OHYadZNk A9HrwE8nRtFcTBTaJGXqC5Om eHQt QNcwH039GUesRrI4MYOcmaRn K1GyTCZkdPuhIsJ6a9V4Xt9M O3P5TL83UH95mXWsj2D2aLB9 J3Bh UBIcwbdyyvrqbSA0CFJmPLZc fV99Cb7inXnmNe2oICQhHQX9 FUGcwFQmC7TdjW1aZuTfFJMt MDAw E6PsoDVaKGkyI337GPxrQeX5 GDQwhaUkU6EkWCShaCrjElN3 f7G7Yv0ZBCo9BG26LS91jGHw c3R5 iFG6S3OqYJKxhjusxcbobMP9 WQUeIYKkgR40Pz4biNciKa5z VEHsFZT7LMKusFCsD8LehH3i OiAj PVOxVNRfR5RdjGPzJAarO030 TLqlHjE3ZCGlqaEyU4QnIIDu mBpwSwX0q6L4Db3XFRLcKN00 IFR5 vOC2WA13SW06Z0HcKhqrwKCe bGU+PHRhYmxlIHdpZHRoPScx ONCoMdSplRbvTT8gFv6jAOGe LWNv qYndcCIjHeXjf5siOLGaAXyf HV3ntPcqV5MyoMS7IRLqt5m6 Kf09E44lO3FzmCO+PGNvbCB3 aWR0 fN1wNmPgBhO0XSgaC677TvXv aWWgFfkgy5zwx0vpvCs8MsQ7 RXZdbfIytHpmODG1z0EtQo85 Y29s IHdpZHRoPSIxNSUiIHZhbGln ft7mlC9xZo1+RFEvsZD9lDM6 kB8kWlIhUaC3UZgiF414BsPa cCIv Itrtd0fnr6agmHo7VtSkPTKh ajGgtThqBSA3q8FtHl08E1Bd wAegm5FhEnj2ue17iLJvz6C3 bGU9 O3DeFUGmimxewFXqvScfMD5e GTGfdsuzDEBkhK9eRKGxN9h4 RyMrTmP4KJxaN0KlyoR6QPAs cHQg PHenFLY1Q65ux2A0TQCzWQHs NEV7hHB3eE9xiMazbwpusRIh eXwlpxJrnBmaZVfsCSrkG990 IHRv sIuoQDUyeA5iKOTybYIypOji CK3tVLFufeylSmIQHTvBIGWG XYSABFA9Z8CrSab7SNQdeVds ZT0n dJEkFJhfTq1kkAiufGlrMG1c FDNyioluEEChdB3oTLQguKYs xFujNN0vZDRbkfhvw749GqDn MHB0 TCXvoPVsR9PzqF3aKdSwDUYm HWVjH8AnfDKxDQkpA898ALuy HmU4HNOkvnQfI5YkSADqzJik OiB0 b8I3Ih0wPo2rLk5xBOuxFC68 TP80sJWex8W2aAP1D9LbVGKr iddivzrqxKU2GEYeUUYxdV94 cGFk XHudIy1zq2I0c833JMTqJEMr jR82Dn8vtQgdQVLmcZGJpW4l fbmlx6zbmaqjEwFuIMVxMPd2 ZXh0 QDZiyZurEyHrWSI7KuX9CTY8 yUFqmQ2mgDmpkqlxgI1gTai+ GPjlKYBxelV1L1VlAvt8XVGk dHls TA6smIKvWKqvAr7krRsavCkp TK7oFTMtpscdMRYvbG4bXGFh mCJssJysPY8cEEPtasxwq099 OiAx JBQ7ASBzvRHhB8XxzJ4mKhLx XRZfTOGvG5UtbGOgSDnsS697 EEpaFfF1OBFpvbVcH6CtINFl aWdu OjA5w3B7Qd6ANS7KITQ2S0Ib Hhh6XCXqcEihEF4jtUElLFvu Nr0xoEfgpOimKX0fYMAqbupo YWRk kC3zRWOwtHKqeVmnXS9jXVHp udyse162BrSqAAM7UPBsiFFc I0IfeV4cGuCmIJEwBRNbO6Mc eHQt GAxwH293BUgqOpH8UYBbrqNl D1WpQKVouOgoXeD7r6Z9Js6O UDwvdGQ+JI97qx15M9FbQufp Pjx0 LSFpRHX9dNR4gU9bQSBjXRqr k0M3rCP2V9WhhxZlhw0sg4ru CTMuPMnrT07dsCBoi5W1CSPx cHR5 KENlvIqqQyUgyH42Ngn+PGNv xQayz2EkFhtsn0pbg1onaFw2 AlXkTLDvndYmlCyqSQO4u6Xg Lz48 B63jRCpnICSwKLDyOJClHYUk hEuulo4tiN1qTq8+PGNvbCB3 aLH6oK8dNcDbOmO5VOreO338 InRv vHFjMcbmi2ede4xrvRd3EsNq SNHmovAbjTtoQEV4n6XeEx26 D1GvzFyml9WcVdt9jj71jUQl c3R5 lDR8R1VqLKStrqpgwUYftVlq GY9xSCZzypwnSBYxaD6jPGPs Z4x5TyHbUoI6NUbzF8WgrqZ4 IGJv oNArXHQenIKTzI1bzrsid4eu cgasZqGxQUIbUBp3EOx5WLEg jYukYaJfSCM8TvU3KLL5oNId bC1h zTrrcyduzW6eMav+MNj5x7fk kUXgXM3vgXI8WK03PO56iDJa a2D4mWQ1J3MqMHIzprfdlkco aHQ6 DAKlFALgcN82Bk9vxPiqSs1d TRLdRBQ6WTWamQTgN7YpbG3k XiVbQKCyRFDfZ6LwfBHfISun Z246 KVpbEdZ8NDGwrhTyT8OyNUZq oDqtDrF0b3H4Si4HLI39PQ21 HO80bBIic7T5iOU1M0WqUTQy bmct lpqbyJH4QNGmYKEjnA44Ef6f kGtnWe2nYINmYNZ0YFCzcFPc B2IswY7qVdJvBFQrUQUyH2Xj eHQt GYylB236HAenNjE3SQXsezJb Q4YhQXFroUpsRiB4m2D2Jv4M Yc64CX29FN38wJEtl4D8bCW3 J3Bh XLVybwonkyxidWB7BSHiZSNt jO85Fc8vgJqsJl6wRKKfWBS1 EZSrbQHkW9CnjN6xDbCxGUNt MDAw V5WazBUjJOeiD888YMnlMpO9 SEHpowTmQ6PfCEPxgIwdIfS4 s5Y7Br5PMZlydsc5K3HiZbgp dHI+ XU31DOHiMY62aJZpvTPuf6ip dEv1AgGpZCHmFZP5hQnbIDxh f8SgCXOaL85poQUad9F5TJLg bGxh cHN (more content not included)... [facility] Coding Summary HTMLBase 64 ItywyvxzHJa7mNz+PGhlYWQ+ ZY4KOXAmH33gjEQviQ4HH2kW PW9ANYLPZDKSUC5GBZ3rpGM5 JQruX2SxilVr MjikhDFgME35QBr4XRK4jHvr HBesnK6tfMIrP2j6JxTsNJ72 eO91PZvyTRPvNwL7ZqTrdzsd bWFy B6fcOoJgvXBhWvl+PHRhYmxl IHdpZHRoPScxMDAlJyBzdHls GY5jVr4bFAJnKDIrlUchzDPh OiBj y5xqZVKvGGrbDJ7hmRnpT0Xy pUO3FQYlz2f5Yt39sHN+PHRk MOA9mQjrTZurn834PxHky1ir IDM3 mCAnYKsiPIR2J43li3X1MWOt EUCuVIZ6vSL3nF0ynEzfoyzp G2TlePCnTxL9RKI7qGWmnM2x bGln jwgmzS3vZno+H11IKR7AECQP YJ1XQjw9A8KiVowktBJ+PC90 DMAfUU68oWNhnREcn6tstBu2 JzEw MBNqEDM2yOhoPHfqd9SwKTUo C66ogABoq9G4CLHgvKekmWFj RmXpxGQ5oS5tPXnhsqwtz5sg dzsn Xyvay8blwk94dD98Z06tUFtx SAAuTQA3THOpSCGirHfyny2k bL1pKu4+WKoxb2rwh2xwaHc7 IjIw LRVqbzVplPkmDJJ9g7NzJi00 X3QcgSobt3FsUww3ii36qVYc e7Z3cUS4JZfiOWXcnA6iJDzr ZnQ6 VYXzKaIkgU39bYMbBVnqMo7e wFhxqIvlPU3tDYDgnkdyJIFp dD4eMKVhnKJprIpnRD6xEOOe bjtm o589CvXdINZ2DKRrzTQeZ3Iq hT9lObQxMLNqINCeU0VjaMAe PSciU912DEdvCqZ2CZCbbaTh Y2Fs SHArwOjiKcP0o4Q5Fw9Hh1Od oynnHHM7OHrmMGSpEoAwPhFo UbL4A0JaZfe2DVTvwGowIP7p J3Bh AUGeofbfggmvqDM7SFFsPCRs fO52dGCnIWjtYd0tz4N7n354 GJIwPJJfuK02Cd2xsIkhNCLs dCBU nI3tzzgme4dbcfigNoYfPCLz HEu7FDr0KGRxzOuoYgBtIDS5 FoP5JOG8nHFxgB0yvEsezjhy dG9w Oyc+G11fqE5tIKZ4ERI7riep LATamcBqBW11PY58T7OgAerj dGFibGU+MBPckhJucLjzGM2l YmFj s1bkw4OnCEfaO1JjZOBjIDkz Xrz2EWKyZDM7zXM9sW1fFMBe OZadb5H2kPU6E2XennYmod8s b2xs EGXtAKssX08msJUya2G3JVNo uKO4HLTfbSwrJrLboW82Aec+ GJOofEvrx2HjYzyib8mof3xs dGg9 BbUxFBPsobUnfQvbSDL4d3Vm Ah94K12mDJfzZRLiKCSqEDCi AXQevTmjcb8ugB0mVi3+PGNv bCB3 tLO9cH4kGZOfWrE6LYzaV463 GhQltQHwWlegp7rqz9rkyBg8 XlCcSMNtquScwVdoSZX3d0Pg Lz48 M45eYBjhDQQsIGWzSAGaHOGs uOvytz5bxH9pUg6+IH9gi7tr iy67dW58uLK+SXAfQET8vUfw PSdw MQYgvD2pSNgwIbY7QKQhOhXp mX24aQGtEIbcJo6kwUcrjDpc OU1mSMVqxbxju916RlKjv2rb IDEw uDJjNNpnDAE2T72io2T5CFIw YQXbWUJ0zVJ1fP2lfTfvspkr bGVmdDsgdmVydGljYWwtYWxp Z246 IHRvcDsnPlBhdGllbnQgTmFt FRb9F1HjBbx5RHNteJrmNQ0n xZGtXVddWi1mdNhetAfzFU9p NTBp rrnhs038SzJby0elUDZvxAYh ADemAZX4V57cv8O0TFPwWURb EIL1eKP2rR0hmLrkdeyvbORa dDsg pyIhjJkmFTvsBKylF011CBLa yKuxUmCgnzDuQHAkvZQ4QJ80 FY39zLVqc8W0vNI3W8XtKVHy bmct bzyyyFZ0VIFwLSYboG66Zc5a qTpdHw3jXLIdPSV7NJMzmEOi E0VxlJ3aKvKcJAJlJWLrS3Zg eHQt HIbfA562PXtwFhA3JQUelfNo U1AhCAOmxJmoPrS8c7N5Bx8X N1M2PC79QC11uLUyf3S4yHL4 J3Bh IMAvdkilbsrlkCP3YDHcEVMc cC28Yj0gqZnjNt7lSAPtJDN4 LSWbpLTeI5QjlA7qZrKbZEPx MDAw L4MsgZOkTKqwA265FXqdQfT0 POOmoySpF8PmRPIkzTuuZjG5 o4K0Sk1KEOk2WF29BM34tSCw c3R5 vIY6D3KmRWXwvawdsiitbUY0 JJAiMDRxtA12Bg2qsPdgLv9y FDBoJQB5VDUenYWbH4MnxE2y OiAj TEZlHHSoY4FvvGVtMBgdG264 XKcdOvW9OJMjkzClQ2GuSVEy iAojAoR2j0S1Bl6CMOZzIA86 IFR5 bFM7ZM81FF20F9YzApldoZXw bGU+PHRhYmxlIHdpZHRoPScx THXmTaCsmKztFS5qMm0cARDr LWNv mTqdmHLdAfScr7sjTDXcAMwj RP8vlUvcW4CbdLO0MUAgz4x7 Pp52Z82cT0QofCC+PGNvbCB3 aWR0 pU6uFjWzXmN4HVooJ538CvUn pYCqMroda0msb1wfdBj0ToC4 SZPttpGvdYxzJIX4s9ExPv54 Y29s IHdpZHRoPSIxNSUiIHZhbGln id6fjJ0jSh9+GZFleYY9vDX7 rH6iMpMyRdY3TPevG337KqPc cCIv Dkbyz7okp5npoZf3ZxQwDCKp nvBktNoeNGQ3m7YaPw54U7Cf zYhmu6OzMdu1kp12lLZka5U5 bGU9 T6NkSSBotjuudXDjmEqbTX8q ZTAtgvgiOUAxyZ4gUVUtB0m6 QlYlEdG4QZjhL9IkcuE5ZTFr cHQg GTfnZXC6N53pk5N3AOBpDVGh QLY2xBM6zM3zbMsormdkxLWk bDhpomYoyLtoHDffCZmlB523 IHRv yHphIMVdxT2vQWLcvYDwfDno BD1iKGUzmgqkWfCNIHdNCICB XFQHFXE5T9NlPck5YNQxrLrs ZT0n jBFfDMxeFq1vdPtplUsgNN0f ZIZxyfpaVQTqjG5yFXIkcEGh wYjuHD4dAZBqeiedw138PiTv MHB0 HMPmdXGmW1VroV3iQhPyMAMp VIVuD0HxcXEcUEpqL397AXjm YgV2KQPlqgIyD3OoIMXibEba OiB0 t2Z2Yq5jNb6rTy6jCRgkKJ32 UR99gIZqr9B0sEW6X7MsYRPf gxilpatnpCI9VWYiEJBjlX97 cGFk ZPdgCf0pk1H3j821UWSxZJAb mX72La4baXtbAJYgwZGNhD6z lmdfw2fnudqmIoGnQMTwJUx6 ZXh0 HTUnqOczIaYmQSN5QqJ9GZA3 wTIekB6cnRnlkzrosG8mPiu+ CNtiXSIvlnA7D3ZuAay2DQOt dHls QU6faXCaJRquUk1agEiqmKjv VW0sZHVcrxrbJYCodU4tZXSf cJJqjLksGG5mCRZuhkxow939 OiAx YQE0LIScjVRlS2JumN8cEfUi XIWnGFWuP1EdsGSzZZeyK596 LSlyWfP5QTChwrKyK5OwMQXw aWdu VsQ3c2C3Fa3SHJ5JYYA6K9Bs Nri4SJNtxItzQM7wkOKxSZts Lc6byAhjlAzdCE3sAFMgoyuw YWRk xM8dAXRbcTEkdXlmVN4zRFBg bkzsg654UdGvRUG9PYToqUGm W1ArmW0tQzWrXTViTSKlS5Oh eHQt RUnwS648ZUoiBgJ5TOJqcoGp S1OjMFMvbCwlFgL6t6G6Ye3O fUFbT8BzI2u7L1BsJkztuLA+ PC90 VIFfJX56lTCuzEJma5wgfIr6 WwLuGZPmRPS6bSjzARkyw8Ph DHXuG04qsOGxm9G6LXFveOws cHNl WrDtuWD2jS6mXHhdjlwji6he rylvRssxt5rbez76hH58W92d IHdpZHRoPSIzMCUiIHZhbGln bj0i bM5mVf0+IBCgeOT6zLV5mM3z LcBbEdH7LMbuO040FaPztOYr Qmiby1rln2efaNy7LiRhXUBf dmFs eRvqZWS4o6GmMg91R79uHUmr PZEhGZLuNBUkSPCzaVurmw7i bZ1jOo2+HM1vr8mswn34lG17 dHI+ MFAhRBW8xKmzEYnaQFThnC8x KOhhAuK2OIPmItMnjW10hAYw PUfsFp0gkBvngIvrQK1aFWJx bjtm p980IgFix1pmPCAbuYClGLdx GCW5M54nk8L7WMBgRWOyDDF7 aLF8rI2zzJuwjogsdPQvuFzv dmVy xJymZDagISilU023XWJykIai QtWiaYExM4rdhnHMLK6zNfuo dGQ+ZOYxGCY0gWosKTdxMWZf aW5n FTVvN1u6AmEmIjL6UBdjJ7Qh lhK9IARwmBGeJSHkqPDYrQ5u pisep0bfztzwUzJgQKOmWYy7 ZXh0 GIYktPwrAfYbDAB2AkP3MYE5 zVNfgN1obJaevonjaE9nWlp+ RklOOjwvdGQ+SIRkQDJ1vRru PSdw XERgeB8nXFYwN1h3MjFrSxB3 VUuiE8SgorF6RPSudOZhXZYv oBTZbP4xklxhh1mnbgswVgKv MDAw IAe4HVe1WCJgpJeeUcNkCHT5 ExN7MXG3rGNrjT8dyEfronas zV8uVem+TVJOOjwvdGQ+PHRk IHN0 aJleUTvhPMEexE2gDDJpB5k9 OqFyCjB6YAzgZ5AqrqF0SACo sLJkCCGgdTHDmI5dyccbr0sd cjog UvLuVQBeUHt0QMe0KETkxIrl QcByHGH0IfI9WNY0yDIsjO0s nItdiyhfjK7uEjp+DFM4CQO5 PC90 EQ59K5QxLhxoeCDziIO+PHRh YmxlIHdpZHRoPScxMDAlJyBz vZcaFZ0uIf3kTIDrMVXhyZrv cHNl OiB (more content not included)... [facility] 10-07-2022 [facility] Telephone (EVIMN) -------- MACIE CLOUD ([id number]) 1975 F Date Time Provider Department 10/07/22 TOO HUGHES During your visit today, we recorded the following information about you: Karen Watkins RN 10/07/2022 9:11 AM Signed Neuro SPINE CARE COORDINATION SURGERY SCHEDULING Pt scheduled for 12/30/2022. This date is now an OR at [facility]. Due to this, pt will need to [...] Dr Hughes at 240pm [address] [place] ([place] Office Date): anytime Pre op Education: 02/08/2023 [...] Status:Closed by KAREN WATKINS on 10/07/22 [address] [facility] CT Spine Lumbar w/o Contrast on [...] DO 10/07/22 9:19 pm Technologist: Pauly ZEE [facility] ED Clinical Summaryon 2022 ED Clinical Summary [facility] - Emergency Department [address] [place] [id number] ED Clinical Summary PERSON INFORMATION Name: MACIE CLOUD Age: 47 Years Sex: FEMALE : 1975 MRN: Acct#: Visit Reason: Back pain; BACK PAIN Arrival: 10/07/2022 19:31:00 Discharge: 10/07/2022 21:28:00 LOS: 000 01:57 Check In: 10/07/2022 19:31:00 Checkout:10/07/2022 21:28:00 Address: [place] [address] PCP: CRISTIANO GRAHAM PROVIDER INFORMATION Provider Role Assigned Unassigned Rosi Alex PA-C ED PA 10/07/2022 19:33:11 Danelle Mar DATAPOWER DEVELOPER Nurse 10/07/2022 19:56:16 VITALS INFORMATION Vital Sign [...] Pain Follow-Up: With: Address: When: CRISTIANO GRAHAM [address] [place] [phone] Within 3 to 5 days DIAGNOSIS: 1:Chronic back pain greater than 3 months duration; Other chronic pain Patient Understands: Yes - Patient/family/caregiver verbalizes understanding of instructions given Comment: [facility] ED Note - Otheron 10-07-2022 ED Note - Other [id number]#[id number] TIFF [facility] ED Note-Nursingon 10-07-2022 ED Note-Nursing Pt walked out of eleni m and stated that she wanted to leave. Pt educated that she would have to leave AMA. Pt states ok. KT, PA filled out form and patient signed and exited the ER, walking independently with family out to private vehicle. [facility] ED Note-Nursing Pt requesting to sharonda ve and have results sent to her surgeon. [...] image to come back prior to dc. Normal [facility] ED Patient Summaryon 023 ED Patient Summary [facility] - Emergency Department [address] [place] [address] PATIENT DISCHARGE INSTRUCTIONS Patient Information Name: MACIE CLOUD Age: 47 Years Date of : 1975 Reason For Visit: Back pain; BACK PAIN Arrival Time: 10/07/2022 19:31:00 Primary Care Physician: CRISTIANO GRAHAM Attending Physician: Herbert Pacheco MD Comment: Visit Diagnosis: Diagnoses This Visit Back pain ([id number]) Chronic back pain greater than 3 months duration (M54.9) Other chronic pain (G89.29) The Pharmacy at [facility] is open Tuesday through Tuesday from 9A [...] alcohol and/or drug addiction problems; contact the [facility] 07/03 Crisis Hotline -Text 4YLUE zc [phone]. If you received any narcotics, sedation, or [...] legal documents With: Address: When: CRISTIANO GRAHAM [address] [place] [address] [phone] Within 3 to 5 days Medication Information: The exam and treatment you received today in the [facility] Emergency Department were for an urgent problem and are not intended as complete care. It is important for you to follow up with a doctor, nurse practitioner, or physician?s kindergarten teacher assistant for ongoing care. If your symptoms [...] so we can reach you if necessary. [facility] Emergency Department has provided you with a complete list of medications post discharge. Please inform your manager route/provider of your visit and for further instruction [...] provider may recommend (more content not included)... [facility] 09-17-2022 [facility] Telephone (SPNSMN) -------- MACIE CLOUD ([id number]) 1975 F Date Time Provider Department 09/17/22 TOO HUGHES NSMN During your visit today, we recorded the following information about you: Karen Watkins RN 09/17/2022 12:51 PM Signed Neuro SPINE CARE COORDINATION SURGERY SCHEDULING Per Dr Hughes OK to schedule pt for surgery. Patient accepts surgery date of 12/30/[address] Too Hughes at [facility]. Planned procedure: Revision L3-S1 and ext to L2 lumbar fusion. Length of Surgery:5 hrws Expected Length of Hospital Stay:3-4 Patient's Home Address: [address] [place], [place] [id number] Medications reviewed : Yes. Meds to be [...] , and nicotine. Education Sent Via Mail/ [facility] Questionnaire Completed: Yes Qualify TREK for Surgical Success?: Yes Patient placed on cancellation list: No Pre op appts: [place]: anytime PACC: [facility] 12/07/22 IC: 12/07/22 at 1140 am [...] non-home discharge disposition : Low [13.4] FATUMA Whittquelyn Jonnie 09/20/2022 2:44 PM Addendum Patient is calling wants to know when she has to stop smoking before surgery. Call back # [phone] Karen Watkins RN 09/21/2022 12:52 PM Signed [...] questions or problems arise. Karen Watkins RN Sheeting Puller Karen Watkins RN 09/21/2022 12:58 PM Signed [...] fusion [M96.0] Order(s):NICOTINE/COTINI NE [SQNICOT] Order #: [id number] FUTURE BLOOD MANAGEMENT REFERRAL [1210815] Order #: [id number]: 1 CBC + DIFF [SQCBCDIF] Order #: [id number] FUTURE FERRITIN BLD [SQFERR] Order #: [id number] FUTURE IRON + TIBC [SQIRON] Order #: [id number] FUTURE HGB A1C [EWNPL8U] Order #: [id number] FUTURE TREK FOR SURGICAL SUCCESS [[id number]] Order #: [id number]: 1 Prescriptions as of 09/21/2022 - Mesalamine [...] lisinopril-hydroCHLOROth iazi (more content not included)... Normal [facility] Albumin [Mass/volume] in Ser um or PlasmaOrdered By: Michel Venegas on 09-16-2022 Albumin [Mass/Vol] 3.8 g/dL 3.2-5.5 [facility] Alkaline phosphatase [Enzyma tic activity/volume] in Serum or PlasmaOrdered By: Michel Venegas on 09-16-2022 ALP [Catalytic activity/Vol] 88 U/L 32-92 [facility] Amphetamine Screen Ql (U)Ord ered By: Michel Venegas on 09-16-2022 Amphetamines Ql (U) Negative Negative [facility] Aspartate aminotransferase [ Enzymatic activity/volume] in Serum or PlasmaOrdered By: Michel Venegas on 09-16-2022 AST [Catalytic activity/Vol] 21 U/L 10-42 [facility] Barbiturates [Presence] in U rineOrdered By: Michel Venegas on 09-16-2022 Barbiturates Ql (U) Negative Negative [facility] Basophils Auto (Bld) [#/Vol] Ordered By: Michel Venegas on 09-16-2022 Basophils (Bld) [#/Vol] 0.1 10*3/uL 0.0-0.2 [facility] Basophils/100 WBC Auto (Bld) Ordered By: Michel Venegas on 09-16-2022 Basophils/100 WBC (Bld) 0.9 % . [facility] Benzodiazepines [Presence] i n UrineOrdered By: Michel Venegas on 09-16-2022 Benzodiazepines Ql (U) Positive Negative [facility] Bilirubin.total [Mass/volume ] in Serum or PlasmaOrdered By: Michel Venegas on 09-16-2022 Bilirubin [Mass/Vol] 0.6 mg/dL 0.3-1.2 [facility] C reactive protein [Mass/vol ume] in Serum or PlasmaOrdered By: Michel Venegas on 09-16-2022 CRP [Mass/Vol] 1.5 mg/dL 0.0-1.0 [facility] Calcium [Mass/volume] in Ser um or PlasmaOrdered By: Michel Venegas on 09-16-2022 Calcium [Mass/Vol] 8.6 mg/dL 8.2-10.2 [facility] Cannabinoids [Presence] in U rine by Screen methodOrdered By: Michel Venegas on 09-16-2022 Cannabinoids Screen Ql (U) Positive Negative [facility] Comment on above: These are unconfirme d results and should not be used for legal purposes. Drug Cut-Off Concentration: AMPH 1000 ng/mL FOREIGN 200 ng/mL ADELE 200 ng/mL COCM 300 ng/mL OP 300 ng/mL PCP 25 ng/mL THC 20 ng/mL Carbon dioxide, total [Moles /volume] in Serum or PlasmaOrdered By: Michel Venegas on 09-16-2022 CO2 [Moles/Vol] 26.1 mmol/L 22.0-30.0 [facility] Chloride [Moles/volume] in S jayshree or PlasmaOrdered By: Michel Venegas on 09-16-2022 Chloride [Moles/Vol] 102 mmol/L 95-114 [facility] Creatinine and Glomerular fi ltration rate.predicted panel (S/P/Bld)Ordered By: Michel Venegas on 09-16-2022 Creatinine [Mass/Vol] 0.53 mg/dL 0.44-1.03 [facility] Eosinophils Auto (Bld) [#/Vo l]Ordered By: Michel Venegas on 09-16-2022 Eosinophils (Bld) [#/Vol] 0.1 10*3/uL 0.0-0.45 [facility] Eosinophils/100 WBC Auto (Bl d)Ordered By: Michel Venegas on 09-16-2022 Eosinophils/100 WBC (Bld) 0.8 % . [facility] Erythrocyte distribution wid th Auto (RBC) [Ratio]Ordered By: Michel Venegas on 09-16-2022 Erythrocyte distribution width (RBC) [Ratio] 15.4 % 11.9-15.3 [facility] Erythrocyte sedimentation ra te by Photometric methodOrdered By: Michel Venegas on 09-16-2022 ESR Photometric method (Bld) [Velocity] 13 mm/hr 0-19 [facility] Estimated glomerular filtrat ion rate (GFR) non- AmericanOrdered By: Michel Venegas on 09-16-2022 GFR/1.73 sq M.predicted among non-blacks MDRD (S/P/Bld) [Vol rate/Area] > 60 mL/Min [facility] Gliadin peptide+tissue trans glutaminase IgA+IgG Ab [Presence] in Serum by ImmunoassayOrdered By: Michel Venegas on 09-16-2022 Gliadin peptide+tissue transglutaminase IgA+IgG IA Ql (S) Negative Negative [facility] Globulin Calc (S) [Mass/Vol] Ordered By: Michel Venegas on 09-16-2022 Globulin (S) [Mass/Vol] 2.5 g/dL [facility] Glucose [Mass/volume] in Ser um or PlasmaOrdered By: Michel Venegas on 09-16-2022 Glucose [Mass/Vol] 100 mg/dL 70-100 [facility] Comment on above: ADA recommended refe rence rangeRandom Glucose Reference Range is dependent on time and content of last meal. Glucose of more than 200 mg/dL in a nonstressed, ambulatory subject supports the diagnosis of Diabetes Mellitus. Hematocrit Auto (Bld) [Volum e fraction]Ordered By: Michel Venegas on 09-16-2022 Hematocrit (Bld) [Volume fraction] 40.4 % 34.0-46.4 [facility] Hemoglobin [Mass/volume] in BloodOrdered By: Michel Venegas on 09-16-2022 Hemoglobin (Bld) [Mass/Vol] 13.4 g/dL 11.8-15.4 [facility] Laboratory - Drug toxicology Ordered By: Michel Venegas on 09-16-2022 Opiates Ql (U) Negative Negative [facility] Leukocytes [#/volume] correc rajani for nucleated erythrocytes in Blood by Automated counOrdered By: Michel Venegas on 09-16-2022 WBC corrected for nucl RBC Auto (Bld) [#/Vol] 7.4 10*3/uL 3.8-11.6 [facility] Lymphocytes Auto (Bld) [#/Vo l]Ordered By: Michel Venegas on 09-16-2022 Lymphocytes (Bld) [#/Vol] 1.6 10*3/uL 1.00-4.8 [facility] Lymphocytes/100 WBC Auto (Bl d)Ordered By: Michel Venegas on 09-16-2022 Lymphocytes/100 WBC (Bld) 21.7 % . [facility] MCH Auto (RBC) [Entitic mass ]Ordered By: Michel Venegas on 09-16-2022 MCH (RBC) [Entitic mass] 30.0 pg 24.7-34.3 [facility] MCHC Auto (RBC) [Mass/Vol]Or dered By: Michel Venegas on 09-16-2022 MCHC (RBC) [Mass/Vol] 33.0 g/dL 32.0-35.0 [facility] MCV Auto (RBC) [Entitic vol] Ordered By: Michel Venegas on 09-16-2022 MCV (RBC) [Entitic vol] 90.8 fL 80-100 [facility] Monocytes Auto (Bld) [#/Vol] Ordered By: Michel Venegas on 09-16-2022 Monocytes (Bld) [#/Vol] 0.3 10*3/uL 0.0-0.8 [facility] Monocytes/100 WBC Auto (Bld) Ordered By: Michel Venegas on 09-16-2022 Monocytes/100 WBC (Bld) 3.6 % . [facility] Neutrophil cytoplasmic Ab.pe rinuclear.atypical [Presence] in Serum by ImmunofluoresceOrdered By: Michel Venegas on 09-16-2022 Neutrophil cytoplasmic Ab.perinuclear.atypical IF Ql (S) Negative Negative [facility] Neutrophils Auto (Bld) [#/Vo l]Ordered By: Michel Venegas on 09-16-2022 Neutrophils (Bld) [#/Vol] 5.4 10*3/uL 1.8-7.7 [facility] Neutrophils/100 WBC Auto (Bl d)Ordered By: Michel Venegas on 09-16-2022 Neutrophils/100 WBC (Bld) 73.0 % . [facility] No Panel InformationOrdered By: Michel Venegas on 09-16-2022 Estimated GFR () > 60 mL/Min [facility] Comment on above: GFR estimated refere nce range: According to KDOQI guidelines, <60 ml/min/1.73m2 is sufficient to diagnose a patient with chronic kidney disease. Inflammatory Bowel Disease Interp See comment . [facility] Comment on above: Suggestive of Crohn' s disease. Subsequent testing with theCrohn's Disease Prognostic Profile (155778) that includesantiglycan antibodies AMCA, ALCA, ACCA, and Marck may aidin the differentiation of clinical forms of CD andprognosis of disease progression.Performed at: [facility] [id number] Director: Saul Villanueva MD, Phone: [phone] Pharmacy Creatinine Clearance (Chem 110.33 [facility] Nucleated erythrocytes [Pres ence] in Blood by Automated countOrdered By: Michel Venegas on 09-16-2022 Nucleated RBC Auto Ql (Bld) 0.2 /100{WBC} 0-0.5 [facility] Phencyclidine Screen Ql (U)O rdered By: Michel Venegas on 09-16-2022 Phencyclidine Ql (U) Negative Negative [facility] Platelet mean volume Auto (B ld) [Entitic vol]Ordered By: Michel Venegas on 09-16-2022 Platelet mean volume (Bld) [Entitic vol] 7.1 fL 6.3-10.7 [facility] Platelets Auto (Bld) [#/Vol] Ordered By: Michel Venegas on 09-16-2022 Platelets (Bld) [#/Vol] 442 10*3/uL 150-450 [facility] Potassium [Moles/volume] in Serum or PlasmaOrdered By: Michel Venegas on 09-16-2022 Potassium [Moles/Vol] 3.9 mmol/L 3.5-5.1 [facility] Protein [Mass/volume] in Ser um or PlasmaOrdered By: Michel Venegas on 09-16-2022 Protein [Mass/Vol] 6.3 g/dL 6.1-7.9 [facility] RBC Auto (Bld) [#/Vol]Ordere d By: Michel Venegas on 09-16-2022 RBC (Bld) [#/Vol] 4.45 10*6/uL 3.60-5.00 [facility] Saccharomyces cerevisiae IgG serumOrdered By: Michle Venegas on 09-16-2022 Mauricio's yeast IgG Qn (S) 38.4 Units 0.0-24.9 [facility] Comment on above: Negative <20.0 Equiv ocal 20.1 - 24.9 Positive >or= 25.0 Serum or plasma alanine main otransferase measurement without P-5'-P (enzymatic activiOrdered By: Michel Venegas on 09-16-2022 ALT No additional P-5'-P [Catalytic activity/Vol] 16 U/L 10-60 [facility] Serum or plasma albumin/glob ulin mass ratioOrdered By: Michel Venegas on 09-16-2022 Albumin/Globulin [Mass ratio] 1.5 {ratio} [facility] Serum or plasma anion gap de terminationOrdered By: Michel Venegas on 09-16-2022 Anion gap [Moles/Vol] 9.8 mmol/L 6.0-15.0 [facility] Sodium [Moles/volume] in Ser um or PlasmaOrdered By: Michel Venegas on 09-16-2022 Sodium [Moles/Vol] 134 mmol/L 136-146 [facility] Urea nitrogen [Mass/volume] in Serum or PlasmaOrdered By: Michel Venegas on 09-16-2022 Urea nitrogen [Mass/Vol] 4 mg/dL 9-23 [facility] Urine cocaine detectionOrder ed By: Michel Venegas on 09-16-2022 Cocaine Ql (U) Negative Negative [facility] WBC Auto (Bld) [#/Vol]Ordere d By: Michel Venegas on 09-16-2022 WBC (Bld) [#/Vol] 7.4 10*3/uL 3.8-11.6 [facility] CNOVon 09-13-2022 CNOV Office Visit (SPNSMN ) -------- MACIE CLOUD ([id number]) 1975 F Date Time Provider Department 09/13/22 1:40 PM TOO HUGHES During your visit today, we recorded the following information about you: Pulse Respiration Blood pressure Weight 78/minute 16/minute 145/74 57.2 kg Height 1.702 m Too Hughes MD 09/13/2022 2:50 PM Signed SPINE SURGERY OUTPATIENT CONSULT This is an in-person visit. SERVICE DATE: 09/13/2022 PCP: Cristiano Graham Sr, MD REFERRING PROVIDER: Lei Martinez [id number] [facility] [id number] Consult requested for an opinion regarding the [...] PROBLEM LIST Copd (Chronic Obstructive Pulmonary Disease) ([facility]) Current Smoker Neck Pain S/P Cervical Spinal Fusion Anxiety and Depression Iron Deficiency Anemia B12 Deficiency PAST MEDICAL HISTORY Diagnosis Date Anemia 10/[address] Cristiano Graham Anxiety and depression COPD (chronic obstructive pulmonary disease) ([facility]) Current smoker Neck pain S/P cervical spinal [...] pain, permanently (more content not included)... Normal [facility] No Panel Informationon 09-13 [facility] XR SCOLIOSIS 2V PA STAND/LAT on [...] C6 as described. Mild dextroscoliosis lumbar spine. Edm Operator: PSCB Transcribe Date/Time: Sep 13 2022 3:18P Dictated by : JUAN ANTONIO MONTES MD This examination was interpreted and the report reviewed and electronically signed by: JUAN ANTONIO MONTES MD on Sep 13 2022 3:22PM EST [id number] Normal [facility] CBC AUTO DIFFon 08-04-2022 BASO # 0.0 103/ul Normal 0.0-0.1 [facility] Comment on above: Performed By: #### C BC #### [facility] [address] [place] [address] Dr. Kimmy Albert Basophils/100 WBC (Bld) 0.4 % Normal 0.2-2.0 [facility] Comment on above: Performed By: #### C BC #### [facility] [address] [place] [address] Dr. Kimmy Albert EO # 0.1 103/ul Normal 0.0-0.7 [facility] Comment on above: Performed By: #### C BC #### [facility] [address] [place] [address] Dr. Kimmy Albert Eosinophils/100 WBC (Bld) 1.3 % Normal 0.9-7.0 [facility] Comment on above: Performed By: #### C BC #### [facility] [address] [place] [address] Dr. Kimmy Albert Erythrocyte distribution width (RBC) [Ratio] 13.6 % Normal 11.0-15.0 [facility] Comment on above: Performed By: #### C BC #### [facility] [address] [place] [address] Dr. Kimmy Albert Hematocrit (Bld) [Volume fraction] 39.5 % Normal 36.0-48.0 [facility] Comment on above: Performed By: #### C BC #### [facility] [address] [place] [address] Dr. Kimmy Albert Hemoglobin (Bld) [Mass/Vol] 13.1 g/dL Normal 12.0-16.0 [facility] Comment on above: Performed By: #### C BC #### [facility] [address] [place] [address] Dr. Kimmy Albert IG # 0.01 10e3/ul Normal 0.00-0.03 [facility] Comment on above: Performed By: #### C BC #### [facility] [address] [place] [address] Dr. Kimmy Albert IG % 0.1 % Normal 0.0-0.5 [facility] Comment on above: Performed By: #### C BC #### [facility] [address] [place] [address] Dr. Kimmy Albert LYMPH # 3.1 103/ul Normal 1.2-3.8 [facility] Comment on above: Performed By: #### C BC #### [facility] [address] [place] [address] Dr. Kimmy Albert Lymphocytes/100 WBC (Bld) 43.7 % Normal 20.5-60.0 [facility] Comment on above: Performed By: #### C BC #### [facility] [address] [place] [address] Dr. Kimmy Albert MANUAL DIFF REQ NO Normal [facility] Comment on above: Performed By: #### C BC #### [facility] [address] [place] [address] Dr. Kimmy Albert MCH (RBC) [Entitic mass] 30.5 pg Normal 26.7-34.0 [facility] Comment on above: Performed By: #### C BC #### [facility] [address] [place] [address] Dr. Kimmy Albert MCHC (RBC) [Mass/Vol] 33.2 g/dL Normal 29.9-35.2 [facility] Comment on above: Performed By: #### C BC #### [facility] [address] [place] [address] Dr. Kimmy Albert MCV (RBC) [Entitic vol] 92.1 fL Normal 81.0-99.0 [facility] Comment on above: Performed By: #### C BC #### [facility] [address] [place] [address] Dr. Kimmy Albert MONO # 0.3 103/ul Normal 0.3-0.8 [facility] Comment on above: Performed By: #### C BC #### [facility] [address] [place] [address] Dr. Kimmy Albert Monocytes/100 WBC (Bld) 4.1 % Normal 1.7-12.0 [facility] Comment on above: Performed By: #### C BC #### [facility] [address] [place] [address] Dr. Kimmy Albert NEUT # 3.6 103/ul Normal 1.4-6.5 [facility] Comment on above: Performed By: #### C BC #### [facility] [address] [place] [address] Dr. Kimmy Albert Neutrophils/100 WBC (Bld) 50.4 % Normal 43.0-75.0 [facility] Comment on above: Performed By: #### C BC #### [facility] [address] [place] [address] Dr. Kimmy Albert Platelet mean volume (Bld) [Entitic vol] 10.0 fL Normal 9.5-13.5 [facility] Comment on above: Performed By: #### C BC #### [facility] [address] [place] [address] Dr. Kimmy Albert PLT 149 103/ul Critically low 150-450 [place] Comment on above: Performed By: #### C BC #### [facility] [address] [place] [address] Dr. Kimmy Albert RBC 4.29 106/ul Normal 4.20-5.40 [facility] Comment on above: Performed By: #### C BC #### [facility] [address] [place] [address] Dr. Kimmy Albert WBC 7.1 103/ul Normal 4.0-11.0 [facility] Comment on above: Performed By: #### C BC #### [facility] [address] [place] [address] Dr. Kim[facility] Mcneill [facility]20[facility] MACIE CLOUD ([id number]) 1975 F Date Time Provider Department 08/04/22 [...] Date Reviewed: 01/23/2021 Reviewed by: Renee Fishman APRN.[employer]USHER LOADER EQUIPMENT OPERATOR - Fully Assessed Reason for Visit: Patient [...] Status:Closed by CARLOS CARRERA on 08/12/22 Normal [facility] CRPon 08-04-2022 CRP [Mass/Vol] mg/L Normal <=1.0 [place] Comment on above: Performed By: #### B MP, CRP #### [facility] [address] CHEST WO CONon [...] by: ALOK COELHO Date: 2022-08-04 06:43 Normal [facility] CT CSPINE WO CONon 2 CT CSPINE [...] by: LEE MARTINEZ Date: 2022-08-04 06:40 Normal [facility] CT LSPINE WO CONon 2 CT [...] by: ALOK COELHO Date: 2022-08-04 06:47 Normal [facility] CT PELVIS WO CONon 2 CT [...] by: ERIC HE Date: 2022-08-04 07:19 Normal [facility] CT TSPINE WO CONon 2 CT TSPINE [...] by: ALOK COELHO Date: 2022-08-04 06:26 Normal [facility] PROF CHEM 8 (BAS METB)on Anion gap [Moles/Vol] 11.7 mmol/L Normal [facility] Comment on above: Performed By: #### B MP, CRP #### [facility] [address] [address] [address] Kimmy Albert Calcium [Mass/Vol] 8.9 mg/dL Normal 8.5-10.1 [facility] Comment on above: Performed By: #### B MP, CRP #### [facility] [address] [address] [address] Kimmy Albert Chloride [Moles/Vol] 99 mmol/L Normal 98-107 [facility] Comment on above: Performed By: #### B MP, CRP #### [facility] [address] [address] [address] Kimmy Albert CO2 [Moles/Vol] 28.9 mmol/L Normal 21.0-32.0 [facility] Comment on above: Performed By: #### B MP, CRP #### [facility] [address] [address] [address] Kimmy Albert Creatinine [Mass/Vol] 0.94 mg/dL Normal 0.55-1.02 [facility] Comment on above: Performed By: #### B MP, CRP #### [facility] [address] [address] [address] Kimmy Albert EGFR-AF MONTSERRATIAN >60 Normal >=60 [facility] Comment on above: Performed By: #### B MP, CRP #### [facility] [address] [address] [address] Kimmy Albert EGFR-NON AF MONTSERRATIAN >60 Normal >=60 [facility] Comment on above: Performed By: #### B MP, CRP #### [facility] [address] [address] [address] Kimmy Albert Glucose [Mass/Vol] 85 mg/dL Normal 74-106 [facility] Comment on above: Performed By: #### B MP, CRP #### [facility] [address] [address] [address] Kimmy Albert Potassium [Moles/Vol] 3.6 mmol/L Normal 3.5-5.1 [facility] Comment on above: Performed By: #### B MP, CRP #### [facility] [address] [address] [address] Kimmy Albert Sodium [Moles/Vol] 136 mmol/L Normal 136-145 [facility] Comment on above: Performed By: #### B MP, CRP #### [facility] [address] [address] [address] iKmmy Albert Urea nitrogen [Mass/Vol] 9.0 mg/dL Normal 7.0-18.0 [facility] Comment on above: Performed By: #### B MP, CRP #### [facility] [address] [address] [address] Kimmy Albert Urea nitrogen/Creatinine [Mass ratio] 9.6 mg/mg Normal [facility] Comment on above: Performed By: #### B MP, CRP #### [facility] [address] [address] [address] Kimmy Albert SED RATE [facility] 2021 SED RATE 14 mm/hr Normal <=20 [facility] Comment on above: Performed By: #### S EDR #### [facility] [address] [address] [address] Kimmy Mcneill 07-30-2022 CNPN Telephone (NIQ) -------- MACIE CLOUD ([id number]) 1975 F Date Time Provider Department 07/30/22 LEI MARTINEZ During your visit today, we recorded the following information about you: Nicolasa Mariella Temporary Receptionist 07/30/2022 11:12 AM Signed pt had 10:30 VV today with provider. Pt has trouble connecting. Pt requesting a phone call. Call back: [phone] Doris Turner 08/02/2022 9:57 AM Signed Patient is calling in about info below Allergies As of Date: 07/30/2022 (No Known Allergies) Date Reviewed: 01/23/2021 Reviewed by: Renee Fishman APRN.CRUSHER LOADER EQUIPMENT OPERATOR - Fully Assessed Reason for Visit: Appointment [...] Encounter Status:[facility] MACIE CLOUD ([id number]) 1975 F Date Time Provider Department 07/21/22 LEI MARTINEZ During your visit today, we recorded the following information about you: Doris Turner 07/21/2022 2:16 PM Signed Received the following record(s) via fax. -MRI L spine wo, Xray, MRI L spine wo/w(report and CD) Date 06/25/22 Record(s) scanned into pt's chart. Doris Johnny Menjivar RN 07/28/2022 9:13 AM Signed Neuro SPINE CARE COORDINATION QUICK NOTE Patient scheduled for virtual visit with CHIP Fine for 07/30/2022 at 10:30 am. Ashly Menjivar RN [employer], [facility] Allergies As of Date: 07/21/2022 (No Known Allergies) Date Reviewed: 01/23/2021 Reviewed by: Renee Fishman APRN.CRUSHER LOADER EQUIPMENT OPERATOR - Fully Assessed Reason for Visit: Results [...] Encounter Status:Closed by ASHLY MENJIVAR on 07/28/22 Normal [facility] CNPN Telephone (NIQ) -------- MACIE CLOUD ([id number]) 1975 F Date Time Provider Department 07/21/22 [...] Date Reviewed: 01/23/2021 Reviewed by: Renee Fishman APRN.[facility] - Fully Assessed Reason for Visit: Received Outside Medical Records [[id number]] Prescriptions as of 07/22/2022 - cyanocobalamin (VITAMIN [...] Encounter Status:Closed by ADOLPH BLANCO on 07/22/22 [facility] 07-20-2022 [facility] Telephone (NIQ) -------- MACIE CLOUD ([id number]) 1975 F Date Time Provider Department 07/20/22 LEI MARTINEZ [facility] During your visit today, we recorded the [...] Date Reviewed: 01/23/2021 Reviewed by: Renee Fishman APRN.CRUSHER LOADER EQUIPMENT OPERATOR - Fully Assessed Reason for Visit: Results [...] Status:Closed by ADOLPH BLANCO on 07/21/22 Normal [facility] Albumin [Mass/volume] in Ser um or PlasmaOrdered By: Cristiano Graham on 07-13-2022 Albumin [Mass/Vol] 3.8 g/dL 3.2-5.5 [facility] Basophils Auto (Bld) [#/Vol] Ordered By: Cristiano Graham on 07-13-2022 Basophils (Bld) [#/Vol] 0.0 10*3/uL 0.0-0.2 [facility] Basophils/100 WBC Auto (Bld) Ordered By: Cristiano Graham on 07-13-2022 Basophils/100 WBC (Bld) 0.4 % . [facility] Creatinine and Glomerular fi ltration rate.predicted panel (S/P/Bld)Ordered By: Cristiano Graham on 07-13-2022 Creatinine [Mass/Vol] 0.59 mg/dL 0.44-1.03 [facility] Eosinophils Auto (Bld) [#/Vo l]Ordered By: Cristiano Graham on 07-13-2022 Eosinophils (Bld) [#/Vol] 0.0 10*3/uL 0.0-0.45 [facility] Eosinophils/100 WBC Auto (Bl d)Ordered By: Cristiano Graham on 07-13-2022 Eosinophils/100 WBC (Bld) 0.5 % . [facility] Erythrocyte distribution wid th Auto (RBC) [Ratio]Ordered By: Cristiano Graham on 07-13-2022 Erythrocyte distribution width (RBC) [Ratio] 13.7 % 11.9-15.3 [facility] Estimated glomerular filtrat ion rate (GFR) non- AmericanOrdered By: Cristiano Graham on 07-13-2022 GFR/1.73 sq M.predicted among non-blacks MDRD (S/P/Bld) [Vol rate/Area] > 60 mL/Min [facility] Globulin Calc (S) [Mass/Vol] Ordered By: Cristiano Graham on 07-13-2022 Globulin (S) [Mass/Vol] 2.5 g/dL F [facility] Hematocrit Auto (Bld) [Volum e fraction]Ordered By: Cristiano Graham on 07-13-2022 Hematocrit (Bld) [Volume fraction] 37.3 % 34.0-46.4 [facility] Hemoglobin [Mass/volume] in BloodOrdered By: Cristiano Graham on 07-13-2022 Hemoglobin (Bld) [Mass/Vol] 12.4 g/dL 11.8-15.4 [facility] Leukocytes [#/volume] correc rajani for nucleated erythrocytes in Blood by Automated counOrdered By: Cristiano Graham on 07-13-2022 WBC corrected for nucl RBC Auto (Bld) [#/Vol] 9.3 10*3/uL 3.8-11.6 [facility] Lymphocytes Auto (Bld) [#/Vo l]Ordered By: Cristiano Graham on 07-13-2022 Lymphocytes (Bld) [#/Vol] 3.3 10*3/uL 1.00-4.8 [facility] Lymphocytes/100 WBC Auto (Bl d)Ordered By: Cristiano Graham on 07-13-2022 Lymphocytes/100 WBC (Bld) 35.7 % . [facility] MCH Auto (RBC) [Entitic mass ]Ordered By: Cristiano Graham on 07-13-2022 MCH (RBC) [Entitic mass] 30.9 pg 24.7-34.3 [facility] MCHC Auto (RBC) [Mass/Vol]Or dered By: Cristiano Graham on 07-13-2022 MCHC (RBC) [Mass/Vol] 33.2 g/dL 32.0-35.0 [facility] MCV Auto (RBC) [Entitic vol] Ordered By: Cristiano Graham on 07-13-2022 MCV (RBC) [Entitic vol] 92.9 fL 80-100 [facility] Monocytes Auto (Bld) [#/Vol] Ordered By: Cristiano Graham on 07-13-2022 Monocytes (Bld) [#/Vol] 0.6 10*3/uL 0.0-0.8 [facility] Monocytes/100 WBC Auto (Bld) Ordered By: Cristiano Graham on 07-13-2022 Monocytes/100 WBC (Bld) 6.3 % . F [facility] Neutrophils Auto (Bld) [#/Vo l]Ordered By: Cristiano Graham on 07-13-2022 Neutrophils (Bld) [#/Vol] 5.3 10*3/uL 1.8-7.7 [facility] Neutrophils/100 WBC Auto (Bl d)Ordered By: Cristiano Graham on 07-13-2022 Neutrophils/100 WBC (Bld) 57.1 % . [facility] No Panel InformationOrdered By: Cristiano Graham on 07-13-2022 Estimated GFR () > 60 mL/Min [facility] Comment on above: GFR estimated refere nce range: According to KDOQI guidelines, <60 ml/min/1.73m2 is sufficient to diagnose a patient with chronic kidney disease. Pharmacy Creatinine Clearance (Chem N/A [facility] Nucleated erythrocytes [Pres ence] in Blood by Automated countOrdered By: Cristiano Graham on 07-13-2022 Nucleated RBC Auto Ql (Bld) 0.0 /100{WBC} 0-0.5 [facility] Platelet mean volume Auto (B ld) [Entitic vol]Ordered By: Cristiano Graham on 07-13-2022 Platelet mean volume (Bld) [Entitic vol] 7.7 fL 6.3-10.7 [facility] Platelets Auto (Bld) [#/Vol] Ordered By: Cristiano Graham on 07-13-2022 Platelets (Bld) [#/Vol] 379 10*3/uL 150-450 [facility] Protein [Mass/volume] in Ser um or PlasmaOrdered By: Cristiano Graham on 07-13-2022 Protein [Mass/Vol] 6.3 g/dL 6.1-7.9 [facility] RBC Auto (Bld) [#/Vol]Ordere d By: Cristiano Graham on 07-13-2022 RBC (Bld) [#/Vol] 4.01 10*6/uL 3.60-5.00 [facility] Serum or plasma alanine main otransferase measurement without P-5'-P (enzymatic activiOrdered By: Cristiano Graham on 07-13-2022 ALT No additional P-5'-P [Catalytic activity/Vol] 19 U/L 10-60 [facility] Serum or plasma albumin/glob ulin mass ratioOrdered By: Cristiano Graham on 07-13-2022 Albumin/Globulin [Mass ratio] 1.5 {ratio} [facility] Serum or plasma alkaline tre sphatase measurement (enzymatic activity/volume)Ordered By: Cristiano Graham on 07-13-2022 ALP [Catalytic activity/Vol] 79 U/L 32-92 [facility] Serum or plasma anion gap de terminationOrdered By: Cristiano Graham on 07-13-2022 Anion gap [Moles/Vol] 14.3 mmol/L 6.0-15.0 [facility] Serum or plasma aspartate am inotransferase measurement (enzymatic activity/volume)Ordered By: Cristiano Graham on 07-13-2022 AST [Catalytic activity/Vol] 22 U/L 10-42 [facility] Serum or plasma calcium jaime urement (mass/volume)Ordered By: Cristiano Graham on 07-13-2022 Calcium [Mass/Vol] 9.0 mg/dL 8.2-10.2 [facility] Serum or plasma chloride miguel surement (moles/volume)Ordered By: Cristiano Graahm on 07-13-2022 Chloride [Moles/Vol] 99 mmol/L 95-114 [facility] Serum or plasma glucose jaime urement (mass/volume)Ordered By: Cristiano Graham on 07-13-2022 Glucose [Mass/Vol] 86 mg/dL 70-100 [facility] Comment on above: ADA recommended refe rence rangeRandom Glucose Reference Range is dependent on time and content of last meal. Glucose of more than 200 mg/dL in a nonstressed, ambulatory subject supports the diagnosis of Diabetes Mellitus. Serum or plasma potassium me asurement (moles/volume)Ordered By: Cristiano Graham on 07-13-2022 Potassium [Moles/Vol] 3.3 mmol/L 3.5-5.1 [facility] Serum or plasma sodium measu rement (moles/volume)Ordered By: Cristiano Graham on 07-13-2022 Sodium [Moles/Vol] 134 mmol/L 136-146 [facility] Serum or plasma total biliru bin measurement (mass/volume)Ordered By: Cristiano Graham on 07-13-2022 Bilirubin [Mass/Vol] 0.2 mg/dL 0.3-1.2 [facility] Serum or plasma total carbon dioxide measurement (moles/volume)Ordered By: Cristiano Graham on 07-13-2022 CO2 [Moles/Vol] 24.0 mmol/L 22.0-30.0 [facility] Serum or plasma urea nitroge n measurement (mass/volume)Ordered By: Cristiano Graham on 07-13-2022 Urea nitrogen [Mass/Vol] 7 mg/dL 05-07 [facility] WBC Auto (Bld) [#/Vol]Ordere d By: Cristiano Graham on 07-13-2022 WBC (Bld) [#/Vol] 9.3 10*3/uL 3.8-11.6 [facility] MRI LSPINE WO CONon 06-25-20 MRI LSPINE [...] by: ERIC HE Date: 2022-06-25 17:14 Normal [facility] XR Spine Lumbar 4+ Views*on 04-15-2022 XR [...] by Hakan Henriquez on 04/15/2022 1933 Normal [facility] [employer] Basophils Auto (Bld) [#/Vol] Ordered By: Jory Ulrich on 03-05-2022 Basophils (Bld) [#/Vol] 0.0 10*3/uL 0.0-0.2 [facility] Basophils/100 WBC Auto (Bld) Ordered By: Jory Ulrich on 03-05-2022 Basophils/100 WBC (Bld) 0.4 % . F [facility] Blood hemoglobin measurement (mass/volume)Ordered By: Jory Ulrich on 03-05-2022 Hemoglobin (Bld) [Mass/Vol] 14.2 g/dL 11.8-15.4 [facility] Blood leukocytes automated c ount (number/volume)Ordered By: Jory Ulrich on 03-05-2022 WBC (Bld) [#/Vol] 8.7 10*3/uL 4.5-11.0 [facility] Eosinophils Auto (Bld) [#/Vo l]Ordered By: Jory Ulrich on 03-05-2022 Eosinophils (Bld) [#/Vol] 0.1 10*3/uL 0.0-0.45 [facility] Eosinophils/100 WBC Auto (Bl d)Ordered By: Jory Ulrich on 03-05-2022 Eosinophils/100 WBC (Bld) 1.3 % . [facility] Erythrocyte distribution wid th Auto (RBC) [Ratio]Ordered By: Jory Ulrich on 03-05-2022 Erythrocyte distribution width (RBC) [Ratio] 14.7 % 11.9-15.3 [facility] Hematocrit Auto (Bld) [Volum e fraction]Ordered By: Jory Ulrich on 03-05-2022 Hematocrit (Bld) [Volume fraction] 41.4 % 34.0-46.4 [facility] Laboratory - Chemistry and C hemistry - challengeOrdered By: Jory Ulrich on 03-05-2022 Cobalamin (Vitamin B12) [Mass/Vol] 213 pg/mL 180-914 [facility] Laboratory - Hematology and Cell countsOrdered By: Jory Ulrich on 03-05-2022 Nucleated RBC/100 WBC (Bld) [Ratio] 0.1 % 0-0.5 [facility] Lymphocytes Auto (Bld) [#/Vo l]Ordered By: Jory Ulrich on 03-05-2022 Lymphocytes (Bld) [#/Vol] 3.2 10*3/uL 1.00-4.8 [facility] Lymphocytes/100 WBC Auto (Bl d)Ordered By: Jory Ulrich on 03-05-2022 Lymphocytes/100 WBC (Bld) 36.6 % . [facility] MCH Auto (RBC) [Entitic mass ]Ordered By: Jory Ulrich on 03-05-2022 MCH (RBC) [Entitic mass] 32.2 pg 24.7-34.3 [facility] MCHC Auto (RBC) [Mass/Vol]Or dered By: Jory Ulrich on 03-05-2022 MCHC (RBC) [Mass/Vol] 34.3 g/dL 32.0-35.0 [facility] MCV Auto (RBC) [Entitic vol] Ordered By: Jory Ulrich on 03-05-2022 MCV (RBC) [Entitic vol] 94.1 fL 80-100 [facility] Monocytes Auto (Bld) [#/Vol] Ordered By: Jory Mojgan on 03-05-2022 Monocytes (Bld) [#/Vol] 0.5 10*3/uL 0.0-0.8 [facility] Monocytes/100 WBC Auto (Bld) Ordered By: Jory Mojgan on 03-05-2022 Monocytes/100 WBC (Bld) 6.1 % . F [facility] Neutrophils Auto (Bld) [#/Vo l]Ordered By: Jory Mojgan on 03-05-2022 Neutrophils (Bld) [#/Vol] 4.8 10*3/uL 1.8-7.7 [facility] Neutrophils/100 WBC Auto (Bl d)Ordered By: Jory Mojgan on 03-05-2022 Neutrophils/100 WBC (Bld) 55.6 % . [facility] Platelet mean volume Auto (B ld) [Entitic vol]Ordered By: Jory Mojgan on 03-05-2022 Platelet mean volume (Bld) [Entitic vol] 8.0 fL 6.3-10.7 [facility] Platelets Auto (Bld) [#/Vol] Ordered By: Jory Mojgan on 03-05-2022 Platelets (Bld) [#/Vol] 444 10*3/uL 150-450 [facility] RBC Auto (Bld) [#/Vol]Ordere d By: Jory Mojgan on 03-05-2022 RBC (Bld) [#/Vol] 4.40 10*6/uL 3.60-5.00 [facility] Radiologyon 06-22-2021 XR Cervical spine 4 or 5 Views Normal [facility] Work Phone: MR Cervical spine WO contrast Normal [facility] Work Phone: Basic Metabolic Panel Reflex Mgon 12-31-2020 Anion gap [Moles/Vol] 8 mmol/L Low 9-15 [facility] Comment on above: Performed By: #### B MPX #### [facility] [address] [place] [address] Calcium [Mass/Vol] 8.2 mg/dL Low 8.5-9.9 [facility] Comment on above: Performed By: #### B MPX #### [facility] [address] [place] [address] Chloride [Moles/Vol] 104 mmol/L Normal 95-107 [facility] Comment on above: Performed By: #### B MPX #### [facility] [address] [place] [address] CO2 [Moles/Vol] 26 mmol/L Normal 20-31 [facility] Comment on above: Performed By: #### B MPX #### [facility] [address] [place] [address] Creatinine [Mass/Vol] 0.57 mg/dL Normal 0.50-0.90 [facility] Comment on above: Performed By: #### B MPX #### [facility] [address] [place] [address] GFR >60.0 Normal >60 [facility] Comment on above: Result Comment: >60 mL/min/1.73m2 EGFR, calc. for ages 18 and older using the MDRD formula (not corrected for weight), is valid for stable renal function. Performed By: #### B MPX #### [facility] [address] [place] [address] GFR/1.73 sq M.predicted among blacks MDRD (S/P/Bld) [Vol rate/Area] mL/min/{1.73_m2} Normal >60 [facility] Comment on above: Result Comment: >60 mL/min/1.73m2 EGFR, calc. for ages 18 and older using the MDRD formula (not corrected for weight), is valid for stable renal function. Performed By: #### B MPX #### [facility] [address] [place] [address] Glucose [Mass/Vol] 111 mg/dL Critically high 70-99 M [facility] Comment on above: Performed By: #### B MPX #### [facility] [address] [place] [address] Magnesium [Moles/Vol] 3.9 mmol/L Normal 3.4-4.9 [facility] Comment on above: Performed By: #### B MPX #### [facility] [address] [place] [address] Sodium [Moles/Vol] 138 mmol/L Normal 135-144 [facility] Comment on above: Performed By: #### B MPX #### [facility] [address] [place] [address] Urea nitrogen [Mass/Vol] 4 mg/dL Low 6-20 [facility] Comment on above: Performed By: #### B MPX #### [facility] [address] [place] [address] Basic Metabolic Panel w/ Ref christy to MGOrdered By: Bib Alvarez on 12-31-2020 Anion gap [Moles/Vol] 8 mmol/L Low [facility] [employer] Work Phone: Calcium [Mass/Vol] 8.2 mg/dL Low 8.5 - 9.9 mg/dL [facility] [employer] Phone: Chloride [Moles/Vol] 104 mmol/L [facility] [employer] Work Phone: CO2 [Moles/Vol] 26 mmol/L [facility] Work Phone: Creatinine [Mass/Vol] 0.57 mg/dL 0.50 - 0.90 mg/dL [facility] [employer] Work Phone: GFR >60.0 >60 [facility] [employer] Work Phone: Comment on above: >60 mL/min/1.73m2 EG FR, calc. for ages 18 and older using the MDRD formula (not corrected for weight), is valid for stable renal function. GFR Non- >60.0 >60 [email or web address]: Comment on above: >60 mL/min/1.73m2 EG FR, calc. for ages 18 and older using the MDRD formula (not corrected for weight), is valid for stable renal function. Glucose [Mass/Vol] 111 mg/dL High 70 - 99 mg/dL [email or web address] Phone: Interpretation and review of laboratory results Abnormal [email or web address]: Potassium reflex Magnesium 3.9 [email or web address]: Sodium [Moles/Vol] 138 mmol/L [email or web address] Phone: Urea nitrogen (BldV) [Mass/Vol] 4 mg/dL Low 6 - 20 mg/dL [email or web address] Phone: [email or web address] Phone: CBC With Platelet and Differ entialon 12-31-2020 Anisocytosis Ql (Bld) 3+ Normal [facility] Comment on above: Performed By: #### C BCWD #### [facility] [address] [place] [address] Hypochromia 1+ Normal [facility] Comment on above: Performed By: #### C BCWD #### [facility] [address] [place] [address] Platelet Slide Review Normal Normal [facility] Comment on above: Performed By: #### C BCWD #### [facility] [address] [place] [address] Basophils (Bld) [#/Vol] 0.0 10*3/uL Normal 0.0-0.2 [facility] Comment on above: Performed By: #### C BCWD #### [facility] [address] [place] [address] Basophils/100 WBC (Bld) 0.2 % Normal M [facility] Comment on above: Performed By: #### C BCWD #### [facility] [address] [place] [address] Eosinophils (Bld) [#/Vol] 0.0 10*3/uL Normal 0.0-0.7 [facility] Comment on above: Performed By: #### C BCWD #### [facility] [address] [place] [address] Eosinophils/100 WBC (Bld) 0.0 % Normal [facility] Comment on above: Performed By: #### C BCWD #### [facility] [address] [place] [address] Erythrocyte distribution width (RBC) [Ratio] 27.5 % Critically high 11.5-14.5 [facility] Comment on above: Performed By: #### C BCWD #### [facility] [address] [place] [address] Hematocrit (Bld) [Volume fraction] 30.9 % Low 37.0-47.0 [facility] Comment on above: Performed By: #### C BCWD #### [facility] [address] [place] [address] Hemoglobin (Bld) [Mass/Vol] 10.1 g/dL Low 12.0-16.0 [facility] Comment on above: Performed By: #### C BCWD #### [facility] [address] [place] [address] Lymphocytes (Bld) [#/Vol] 1.9 10*3/uL Normal 1.0-4.8 [facility] Comment on above: Performed By: #### C BCWD #### [facility] [address] [place] [address] Lymphocytes/100 WBC (Bld) 16.8 % Normal [facility] Comment on above: Performed By: #### C BCWD #### [facility] [address] [place] [address] MCH (RBC) [Entitic mass] 27.7 pg Normal 27.0-31.3 [facility] Comment on above: Performed By: #### C BCWD #### [facility] [address] [place] [address] MCHC 32.7 % Low 33.0-37.0 [facility] Comment on above: Performed By: #### C BCWD #### [facility] [address] [place] [address] MCV (RBC) [Entitic vol] 84.7 fL Normal 82.0-100.0 [facility] Comment on above: Performed By: #### C BCWD #### [facility] [address] [place] [address] Monocytes (Bld) [#/Vol] 0.9 10*3/uL Critically high 0.2-0. 8 [facility] Comment on above: Performed By: #### C BCWD #### [facility] [address] [place] [address] Monocytes/100 WBC (Bld) 7.8 % Normal [facility] Comment on above: Performed By: #### C BCWD #### [facility] [address] [place] [address] Neutrophils (Bld) [#/Vol] 8.6 10*3/uL Critically high 1.4-6.5 [facility] Comment on above: Performed By: #### C BCWD #### [facility] [address] [place] [address] Neutrophils/100 WBC (Bld) 75.2 % Normal [facility] Comment on above: Performed By: #### C BCWD #### [facility] [address] [place] [address] Platelets (Bld) [#/Vol] 307 10*3/uL Normal 130-400 [facility] Comment on above: Performed By: #### C BCWD #### [facility] [address] [place] [address] RBC (Bld) [#/Vol] 3.65 10*6/uL Low 4.20-5.40 [facility] Comment on above: Performed By: #### C BCWD #### [facility] [address] [place] [address] WBC (Bld) [#/Vol] 11.4 10*3/uL Critically high 4.8-10.8 [facility] Comment on above: Performed By: #### C BCWD #### [facility] [address] [place] [address] CBC auto differentialOrdered By: Bib Alvarez on 12-31-2020 Anisocytosis Ql (Bld) 3+ [facility] [employer] Work Phone: Basophils (Bld) [#/Vol] 0.0 10*3/uL 0.0 - 0.2 K/uL [employer] Phone: Basophils/100 WBC (Bld) 0.2 % [email or web address] Phone: Eosinophils (Bld) [#/Vol] 0.0 10*3/uL 0.0 - 0.7 K/uL [employer] Phone: Eosinophils/100 WBC (Bld) 0 % [email or web address] Phone: Hematocrit (Bld) [Volume fraction] 30.9 % Low 37.0 - 47.0 % [employer] Phone: Hemoglobin.gastrointest inal spec 1 Ql (Stl) 10.1 g/dL Low 12.0 - 16.0 g/dL [employer] Phone: Hypochromia 1+ [employer] Phone: Interpretation and review of laboratory results Abnormal [email or web address] Phone: Lymphocytes (Bld) [#/Vol] 1.9 10*3/uL 1.0 - 4.8 K/uL [email or web address] Phone: Lymphocytes/100 WBC (Bld) 16.8 % [employer] Phone: MCH (RBC) [Entitic mass] 27.7 pg 27.0 - 31.3 pg [employer] Phone: MCHC (RBC) [Mass/Vol] 32.7 % Low 33.0 - 37.0 % [employer] Phone: MCV (RBC) [Entitic vol] 84.7 fL 82.0 - 100.0 fL [employer] Phone: Monocytes (Bld) [#/Vol] 0.9 10*3/uL High 0.2 - 0.8 K/uL [employer] Phone: Monocytes/100 WBC (Bld) 7.8 % M [email or web address] Phone: Neutrophils Absolute 8.6 K/uL High 1.4 - 6 .5 K/uL [employer] Phone: Neutrophils/100 WBC (Bld) 75.2 % [employer] Phone: Platelet distribution width (Bld) [Ratio] 27.5 % High 11.5 - 14.5 % [employer] Phone: PLATELET SLIDE REVIEW Normal [facility] [employer] Phone: Platelets (Bld) [#/Vol] 307 10*3/uL 130 - 400 K/uL [employer] Phone: RBC (Bld) [#/Vol] 3.65 10*6/uL Low [employer] Phone: WBC (Bld) [#/Vol] 11.4 10*3/uL High 4.8 - 10.8 K/uL [employer] Phone: [employer] Phone: Surgical PathologyOrdered By : Bib Alvarez on 12-31-2020 [employer] [facility] [address] [place], [place] [id number] FINAL SURGICAL PATHOLOGY REPORT Patient Name: MACIE CLOUD Accession No: [id number] Age Sex: 1975 Location: [facility] [id number] Account No: [id number] Collected: 12/30/2020 [facility] Rec No: [id number] Received: 12/30/2020 Attend Phys: BIB ALVAREZ Completed: 12/31/2020 Perform Phys: BIB ALVAREZ FINAL DIAGNOSIS: L3-4 DISK- INTERVERTEBRAL DISC MATERIAL WITH REACTIVE CHANGES. ALIFA/ALIFOREST CLINICAL INFORMATION: Pseudarthrosis, disc herniation, radiculopathy, spondylosis. [...] cassettes after a brief decalcification. VEGA/CIRILO CPT: 38291 X1 81851 X1 RYAN ANTOINE M.D. 12/31/2020 Electronically signed out by Page 1 of 1 [employer] Phone: [employer] Phone: XR LUMBAR SPINE (2-3 VIEWS)O rdered By: Bib Alvarez on 12-31-2020 Postsurgical changes. [employer] Phone: [employer] Incoming Radiant Results From [employer] - 12/31/2020 1:45 PM EDT EXAMINATION: XR [...] subadjacent soft tissue emphysema. IMPRESSION: Postsurgical changes. [employer] Phone: [employer] Phone: Basic Metabolic Panel Reflex Mgon 12-30-2020 Anion gap [Moles/Vol] 6 mmol/L Low 9-15 [facility] Comment on above: Performed By: #### B MPX #### [facility] [address] [place] [address] Calcium [Mass/Vol] 8.6 mg/dL Normal 8.5-9.9 [facility] Comment on above: Performed By: #### B MPX #### [facility] [address] [place] [address] Chloride [Moles/Vol] 104 mmol/L Normal 95-107 [facility] Comment on above: Performed By: #### B MPX #### [facility] [address] [place] [address] CO2 [Moles/Vol] 28 mmol/L Normal 20-31 [facility] Comment on above: Performed By: #### B MPX #### [facility] [address] [place] [address] Creatinine [Mass/Vol] 0.44 mg/dL Low 0.50-0.90 [facility] Comment on above: Performed By: #### B MPX #### [facility] [address] [place] [address] GFR >60.0 Normal >60 [facility] Comment on above: Result Comment: >60 mL/min/1.73m2 EGFR, calc. for ages 18 and older using the MDRD formula (not corrected for weight), is valid for stable renal function. Performed By: #### B MPX #### [facility] [address] [place] [address] GFR/1.73 sq M.predicted among blacks MDRD (S/P/Bld) [Vol rate/Area] mL/min/{1.73_m2} Normal >60 [facility] Comment on above: Result Comment: >60 mL/min/1.73m2 EGFR, calc. for ages 18 and older using the MDRD formula (not corrected for weight), is valid for stable renal function. Performed By: #### B MPX #### [facility] [address] [place] [address] Glucose [Mass/Vol] 150 mg/dL Critically high 70-99 M [facility] Comment on above: Performed By: #### B MPX #### [facility] [address] [place] [address] Magnesium [Moles/Vol] 4.2 mmol/L Normal 3.4-4.9 [facility] Comment on above: Performed By: #### B MPX #### [facility] [address] [place] [address] Sodium [Moles/Vol] 138 mmol/L Normal 135-144 [facility] Comment on above: Performed By: #### B MPX #### [facility] [address] [place] [address] Urea nitrogen [Mass/Vol] 8 mg/dL Normal 6-20 [facility] Comment on above: Performed By: #### B MPX #### [facility] [address] [place] [address] Basic Metabolic Panel w/ Ref christy to MGOrdered By: Bib Alvarez on 12-30-2020 Anion gap [Moles/Vol] 6 mmol/L Low [facility] [employer] Work Phone: Calcium [Mass/Vol] 8.6 mg/dL 8.5 - 9.9 mg/dL [facility] [employer] Work Phone: Chloride [Moles/Vol] 104 mmol/L [facility] [employer] Work Phone: CO2 [Moles/Vol] 28 mmol/L [facility] Work Phone: Creatinine [Mass/Vol] 0.44 mg/dL Low 0.50 - 0.90 mg/dL [facility] [employer] Work Phone: GFR >60.0 >60 [facility] [employer] Work Phone: Comment on above: >60 mL/min/1.73m2 EG FR, calc. for ages 18 and older using the MDRD formula (not corrected for weight), is valid for stable renal function. GFR Non- >60.0 >60 [employer] Phone: Comment on above: >60 mL/min/1.73m2 EG FR, calc. for ages 18 and older using the MDRD formula (not corrected for weight), is valid for stable renal function. Glucose [Mass/Vol] 150 mg/dL High 70 - 99 mg/dL [employer] Phone: Interpretation and review of laboratory results Abnormal [employer] Phone: Potassium reflex Magnesium 4.2 [employer] Phone: Sodium [Moles/Vol] 138 mmol/L [employer] Phone: Urea nitrogen (BldV) [Mass/Vol] 8 mg/dL 6 - 20 mg/dL [employer] Phone: [employer] Phone: CBC With Platelet No Differe ntialon 12-30-2020 Erythrocyte distribution width (RBC) [Ratio] 27.2 % Critically high 11.5-14.5 [facility] Comment on above: Performed By: #### C BCND #### [facility] [address] [place] [address] Hematocrit (Bld) [Volume fraction] 32.0 % Low 37.0-47.0 [facility] Comment on above: Performed By: #### C BCND #### [facility] [address] [place] [address] Hemoglobin (Bld) [Mass/Vol] 10.2 g/dL Low 12.0-16.0 [facility] Comment on above: Performed By: #### C BCND #### [facility] [address] [place] [address] MCH (RBC) [Entitic mass] 27.1 pg Normal 27.0-31.3 [facility] Comment on above: Performed By: #### C BCND #### [facility] [address] [place] [address] MCHC 32.0 % Low 33.0-37.0 [facility] Comment on above: Performed By: #### C BCND #### [facility] [address] [place] [address] MCV (RBC) [Entitic vol] 84.5 fL Normal 82.0-100.0 M [facility] Comment on above: Performed By: #### C BCND #### [facility] [address] [place] [address] Platelets (Bld) [#/Vol] 302 10*3/uL Normal 130-400 [facility] Comment on above: Performed By: #### C BCND #### [facility] [address] [place] [address] RBC (Bld) [#/Vol] 3.79 10*6/uL Low 4.20-5.40 [facility] Comment on above: Performed By: #### C BCND #### [facility] [address] [place] [address] WBC (Bld) [#/Vol] 11.8 10*3/uL Critically high 4.8-10.8 [facility] Comment on above: Performed By: #### C BCND #### [facility] [address] [place] [address] CBC without DiffOrdered By: Bib Alvarez on 12-30-2020 Hematocrit (Bld) [Volume fraction] 32.0 % Low 37.0 - 47.0 % [facility] [employer] Phone: Hemoglobin.gastrointest inal spec 1 Ql (Stl) 10.2 g/dL Low 12.0 - 16.0 g/dL [email or web address] Phone: Interpretation and review of laboratory results Abnormal [employer] Phone: MCH (RBC) [Entitic mass] 27.1 pg 27.0 - 31.3 pg [employer] Phone: MCHC (RBC) [Mass/Vol] 32.0 % Low 33.0 - 37.0 % [employer] Phone: MCV (RBC) [Entitic vol] 84.5 fL 82.0 - 100.0 fL [employer] Phone: Platelet distribution width (Bld) [Ratio] 27.2 % High 11.5 - 14.5 % [employer] Phone: Platelets (Bld) [#/Vol] 302 10*3/uL 130 - 400 K/uL [employer] Phone: RBC (Bld) [#/Vol] 3.79 10*6/uL Low [employer] Phone: WBC (Bld) [#/Vol] 11.8 10*3/uL High 4.8 - 10.8 K/uL [employer] Phone: [employer] Phone: FLUORO FOR SURGICAL PROCEDUR ESOrdered By: Bib Alvarez on 12-30-2020 Migel, po Incoming Radiant Results From [employer] - 12/30/2020 1:23 PM EDT FLUORO FOR SURGICAL PROCEDURES : 12/30/2020 8:47 AM CLINICAL HISTORY: R52 Pain ICD10. Lumbar spine fusion. COMPARISON: None available. Intraoperative fluoroscopy was provided for Dr. Alvarez 's procedure. A total of 11.22 mGy of fluoroscopy was used, with 4 fluoroscopic stills saved. No diagnostic images were obtained. Please see Dr. Alvarez's surgical notes for complete details. [employer] Phone: [employer] Phone: Surgical Specimenon 12-31-19 21 Surgical Specimen [facility] [address] [place], [place] [id number] FINAL SURGICAL PATHOLOGY REPORT Patient Name: MACIE CLOUD No: [id number] Age Sex: 1975 Location: [facility] [id number] Account No: [id number] Collected: 12/30/2020 [facility] Rec No: [id number] Received: 12/30/2020 Attend Phys: BIB SEVILLAO Completed: 12/31/2020 Perform Phys: BIB KIM FINAL DIAGNOSIS: L3-4 DISK- INTERVERTEBRAL DISC MATERIAL [...] in two cassettes after a brief decalcification. ALIFOREST/CIRILO CPT: 90837 X1 03246 X1 RYAN ANTOINE M.D. 12/31/2020 Electronically signed out by Page 1 of 1 Invalid Interpretation Code [facility] Comment on above: Performed By: #### S UR #### [facility] [address] [place] [id number] COVID-19, NAAon 12-23-2020 SARS-CoV-2 (COVID-19) RNA GERONIMO+probe Ql (Unsp spec) Not detected Normal Not Detect [facility] Comment on above: Result Comment: This nucleic acid amplification test was developed and its performance characteristics determined by [employer]. Nucleic acid amplification tests include RT-PCR and [...] detected) result in this assay. Performed at: [address] [id number] Ell Tutor: Ángel Higgins PhD, Phone: [phone] Performed By: #### I RCOV #### [facility] [address] [place] [address] Basic Metabolic Panelon 05--2020 Anion gap [Moles/Vol] 15 mmol/L Normal 9-15 [facility] Comment on above: Performed By: #### B MP #### [facility] [address] [place] [address] Calcium [Mass/Vol] 10.2 mg/dL Critically high 8.5-9.9 [facility] Comment on above: Performed By: #### B MP #### [facility] [address] [place] [address] Chloride [Moles/Vol] 96 mmol/L Normal 95-107 [facility] Comment on above: Performed By: #### B MP #### [facility] [address] [place] [address] CO2 [Moles/Vol] 26 mmol/L Normal 20-31 [facility] Comment on above: Performed By: #### B MP #### [facility] [address] [place] [address] Creatinine [Mass/Vol] 0.65 mg/dL Normal 0.50-0.90 [facility] Comment on above: Performed By: #### B MP #### [facility] [address] [place] [address] GFR >60.0 Normal >60 [facility] Comment on above: Result Comment: >60 mL/min/1.73m2 EGFR, calc. for ages 18 and older using the MDRD formula (not corrected for weight), is valid for stable renal function. Performed By: #### B MP #### [facility] [address] [place] [address] GFR/1.73 sq M.predicted among blacks MDRD (S/P/Bld) [Vol rate/Area] mL/min/{1.73_m2} Normal >60 [facility] Comment on above: Result Comment: >60 mL/min/1.73m2 EGFR, calc. for ages 18 and older using the MDRD formula (not corrected for weight), is valid for stable renal function. Performed By: #### B MP #### [facility] [address] [place] [address] Glucose [Mass/Vol] 86 mg/dL Normal 70-99 [facility] Comment on above: Performed By: #### B MP #### [facility] [address] [place] [address] Potassium [Moles/Vol] 4.3 mmol/L Normal 3.4-4.9 [facility] Comment on above: Performed By: #### B MP #### [facility] [address] [place] [address] Sodium [Moles/Vol] 137 mmol/L Normal 135-144 [facility] Comment on above: Performed By: #### B MP #### [facility] [address] [place] [address] Urea nitrogen [Mass/Vol] 9 mg/dL Normal 6-20 [facility] Comment on above: Performed By: #### B MP #### [facility] [address] [place] [address] CBC With Platelet No Differe ntialon 12-22-2020 Erythrocyte distribution width (RBC) [Ratio] 29.1 % Critically high 11.5-14.5 [facility] Comment on above: Performed By: #### C BCND #### [facility] [address] [place] [address] Hematocrit (Bld) [Volume fraction] 41.5 % Normal 37.0-47.0 [facility] Comment on above: Performed By: #### C BCND #### [facility] [address] [place] [address] Hemoglobin (Bld) [Mass/Vol] 13.3 g/dL Normal 12.0-16.0 [facility] Comment on above: Performed By: #### C BCND #### [facility] [address] [place] [address] MCH (RBC) [Entitic mass] 26.7 pg Low 27.0-31.3 [facility] Comment on above: Performed By: #### C BCND #### [facility] [address] [place] [address] MCHC 32.0 % Low 33.0-37.0 [facility] Comment on above: Performed By: #### C BCND #### [facility] [address] [place] [address] MCV (RBC) [Entitic vol] 83.5 fL Normal 82.0-100.0 [facility] Comment on above: Performed By: #### C BCND #### [facility] [address] [place] [address] Platelets (Bld) [#/Vol] 483 10*3/uL Critically high 130-40 0 [facility] Comment on above: Performed By: #### C BCND #### [facility] [address] [place] [address] RBC (Bld) [#/Vol] 4.97 10*6/uL Normal 4.20-5.40 [facility] Comment on above: Performed By: #### C BCND #### [facility] [address] [place] [address] WBC (Bld) [#/Vol] 11.6 10*3/uL Critically high 4.8-10.8 [facility] Comment on above: Performed By: #### C BCND #### [facility] [address] [place] [address] COVID-19, NAAon 12-22-2020 Source Swab Anterior nares Normal [facility] Comment on above: Performed By: #### I RCOV #### [facility] [address] [place] [address] Partial Thromboplastin Timeo n 12-22-2020 aPTT Coag (Bld) [Time] 28.5 s Normal 24.4-36.8 [facility] Comment on above: Result Comment: Effe ctive 06/18/2020: Heparin Therapeutic Range: 64.0 ? 98.0 seconds. Performed By: #### P TT #### [facility] [address] [place] [address] Prothrombin Timeon INR Coag (PPP) [Relative time] 0.9 {INR} Normal [facility] Comment on above: Performed By: #### B MP #### [facility] [address] [place] [address] PT Coag (PPP) [Time] 12.7 s Normal 12.3-14.9 [facility] Comment on above: Performed By: #### B MP #### [facility] [address] [place] [address] Type and Screen Capture 3 sc rn cellon 12-22-2020 Type and Screen Capture 3 scrn cell PATIENT: MANUELA Thacker LOC: [facility] BILL# : [id number] : 1975 SEX: F ORDERED BY: CLAUDETTE Cespedes ORDERED : 12/22/2020 11:03 COLLECTED: 12/22/2020 11:04 ORDER : [id number] RECEIVED : 12/22/2020 15:08 ------ TEST NAME RESULT UNITS RANGES ABN FL ST ABORH Capture O POS F Antibody 3 Cell Scrn Captu NEG F ----- Normal [facility] Comment on above: Performed By: #### B MP #### [facility] [address] [place] [id number] COVID-19, NAAon 10-29-2020 SARS-CoV-2 (COVID-19) RNA GERONIMO+probe Ql (Unsp spec) Not detected Normal Not Detect [facility] Comment on above: Result Comment: This nucleic acid amplification test was developed and its performance characteristics determined by [employer]. Nucleic acid amplification tests include RT-PCR and [...] detected) result in this assay. Performed at: [facility] [address] [facility], [place] [id number] Ell Tutor: Mars Kinney MD, Phone: [phone] Performed By: #### I RCOV #### [facility] [address] [place] [address] Basic Metabolic Panelon 03-1 Anion gap [Moles/Vol] 13 mmol/L Normal 9-15 [facility] Comment on above: Performed By: #### B MP #### [facility] [address] [place] [address] Calcium [Mass/Vol] 9.2 mg/dL Normal 8.5-9.9 [facility] Comment on above: Performed By: #### B MP #### [facility] [address] [place] [address] Chloride [Moles/Vol] 100 mmol/L Normal 95-107 [facility] Comment on above: Performed By: #### B MP #### [facility] [address] [place] [address] CO2 [Moles/Vol] 25 mmol/L Normal 20-31 [facility] Comment on above: Performed By: #### B MP #### [facility] [address] [place] [address] Creatinine [Mass/Vol] 0.58 mg/dL Normal 0.50-0.90 [facility] Comment on above: Performed By: #### B MP #### [facility] [address] [place] [address] GFR >60.0 Normal >60 [facility] Comment on above: Result Comment: >60 mL/min/1.73m2 EGFR, calc. for ages 18 and older using the MDRD formula (not corrected for weight), is valid for stable renal function. Performed By: #### B MP #### [facility] [address] [place] [address] GFR/1.73 sq M.predicted among blacks MDRD (S/P/Bld) [Vol rate/Area] mL/min/{1.73_m2} Normal >60 [facility] Comment on above: Result Comment: >60 mL/min/1.73m2 EGFR, calc. for ages 18 and older using the MDRD formula (not corrected for weight), is valid for stable renal function. Performed By: #### B MP #### [facility] [address] [place] [address] Glucose [Mass/Vol] 100 mg/dL Critically high 70-99 [facility] Comment on above: Performed By: #### B MP #### [facility] [address] [place] [address] Potassium [Moles/Vol] 4.7 mmol/L Normal 3.4-4.9 [facility] Comment on above: Performed By: #### B MP #### [facility] [address] [place] [address] Sodium [Moles/Vol] 138 mmol/L Normal 135-144 [facility] Comment on above: Performed By: #### B MP #### [facility] [address] [place] [address] Urea nitrogen [Mass/Vol] 10 mg/dL Normal 6-20 [facility] Comment on above: Performed By: #### B MP #### [facility] [address] [place] [address] CBC With Platelet No Differe ntialon 10-27-2020 Erythrocyte distribution width (RBC) [Ratio] 21.3 % Critically high 11.5-14.5 [facility] Comment on above: Performed By: #### C BCND #### [facility] [address] [place] [address] Hematocrit (Bld) [Volume fraction] 31.1 % Low 37.0-47.0 [facility] Comment on above: Performed By: #### C BCND #### [facility] [address] [place] [address] Hemoglobin (Bld) [Mass/Vol] 9.7 g/dL Low 12.0-16.0 [facility] Comment on above: Performed By: #### C BCND #### [facility] [address] [place] [address] MCH (RBC) [Entitic mass] 23.0 pg Low 27.0-31.3 [facility] Comment on above: Performed By: #### C BCND #### [facility] [address] [place] [address] MCHC 31.2 % Low 33.0-37.0 [facility] Comment on above: Performed By: #### C BCND #### [facility] [address] [place] [address] MCV (RBC) [Entitic vol] 73.7 fL Low 82.0-100.0 [facility] Comment on above: Performed By: #### C BCND #### [facility] [address] [place] [address] Platelets (Bld) [#/Vol] 367 10*3/uL Normal 130-400 [facility] Comment on above: Performed By: #### C BCND #### [facility] [address] [place] [address] RBC (Bld) [#/Vol] 4.22 10*6/uL Normal 4.20-5.40 [facility] Comment on above: Performed By: #### C BCND #### [facility] [address] [place] [address] WBC (Bld) [#/Vol] 10.0 10*3/uL Normal 4.8-10.8 [facility] Comment on above: Performed By: #### C BCND #### [facility] [address] [place] [address] COVID-19, NAAon 10-27-2020 Source Swab Anterior nares Normal [facility] Comment on above: Performed By: #### I RCOV #### [facility] [address] [place] [address] Partial Thromboplastin Timeo n 10-27-2020 aPTT Coag (Bld) [Time] 27.9 s Normal 24.4-36.8 [facility] Comment on above: Result Comment: Effe ctive 06/18/2020: Heparin Therapeutic Range: 64.0 ? 98.0 seconds. Performed By: #### P TT #### [facility] [address] [place] [address] Prothrombin Timeon 1 INR Coag (PPP) [Relative time] 0.9 {INR} Normal [facility] Comment on above: Performed By: #### P T #### [facility] [address] [place] [address] PT Coag (PPP) [Time] 12.4 s Normal 12.3-14.9 [facility] Comment on above: Performed By: #### P T #### [facility] [address] [place] [address] Type and Screen Capture 3 sc rn cellon 10-27-2020 Type and Screen Capture 3 scrn cell PATIENT: MANUELA Thacker LOC: [facility],, BILL# : [id number] : 1975 SEX: F ORDERED BY: CLAUDETTE Cespedes ORDERED : 10/27/2020 10:58 COLLECTED: 10/27/2020 10:55 ORDER : [id number] RECEIVED : 10/27/2020 14:31 ------ TEST NAME RESULT UNITS RANGES ABN FL ST ABORH Capture O POS F Antibody 3 Cell Scrn Captu NEG F ----- Normal [facility] Comment on above: Performed By: #### T S3C #### [facility] [address] [place] [address] Vital Signs Date Time Vital Sign Value Performing Clinician Facility 04-25-2025 10:04-0400 Body height 171.5 cm Lora Power MD Work Phone: [facility] 04-25-2025 10:04-0400 Body mass index (BMI) [Ratio] 18.83 kg/m2 Lora Power MD Work Phone: [facility] 04-25-2025 10:04-0400 Body weight 55.34 kg Lora Power MD Work Phone: [facility] 04-25-2025 10:04-0400 Diastolic blood pressure 102 mm[Hg] Lora Power MD Work Phone: [facility] 04-25-2025 10:04-0400 Systolic blood pressure 178 mm[Hg] Lora Power MD Work Phone: [facility] 04-16-2025 13:01-0400 Body height 170.18 cm [facility] 04-16-2025 13:01-0400 Body mass index (BMI) [Ratio] 17.6 kg/m2 [facility] 04-16-2025 13:01-0400 Body weight 51.25 kg [facility] 04-16-2025 13:01-0400 Diastolic blood pressure 93 mm[Hg] [facility] 04-16-2025 13:01-0400 Heart rate 97 /min [facility] 04-16-2025 13:01-0400 Systolic blood pressure 161 mm[Hg] [facility] 03-20-2025 12:41-0400 Inhaled oxygen flow rate 2 L/min PHYSICIAN NO [facility] 03-20-2025 11:13-0400 Body temperature 98.3 [degF] PHYSICIAN NO [facility] 03-20-2025 11:13-0400 Diastolic blood pressure 64 mm[Hg] PHYSICIAN NO [facility] 03-20-2025 11:13-0400 Heart rate 95 /min PHYSICIAN NO [facility] 03-20-2025 11:13-0400 Respiratory rate 24 /min PHYSICIAN NO [facility] 03-20-2025 11:13-0400 SaO2% (BldA) [Mass fraction] 95 % PHYSICIAN NO [facility] 03-20-2025 11:13-0400 Systolic blood pressure 119 mm[Hg] PHYSICIAN NO [facility] 03-20-2025 05:48-0400 Body weight 56.2 kg PHYSICIAN NO [facility] 03-19-2025 15:55-0400 Body height 170.18 cm PHYSICIAN NO [facility] 03-19-2025 15:53-0400 Inhaled oxygen concentration 70 % PHYSICIAN NO [facility] 09-27-2024 15:38-0500 Body height 171.5 cm Lora Power MD Work Phone: [facility] 09-27-2024 15:38-0500 Body mass index (BMI) [Ratio] 18.83 kg/m2 Lora Power MD Work Phone: [facility] 09-27-2024 15:38-0500 Body weight 55.34 kg Lora Power MD Work Phone: [facility] 09-27-2024 15:38-0500 Diastolic blood pressure 104 mm[Hg] Lora Power MD Work Phone: [facility] 09-27-2024 15:38-0500 Systolic blood pressure 182 mm[Hg] Lora Power MD Work Phone: [facility] 09-13-2024 15:36-0500 Body height 170.18 cm PHYSICIAN NO [facility] 09-13-2024 15:36-0500 Body temperature 97.8 [degF] PHYSICIAN NO [facility] 09-13-2024 15:36-0500 Body weight 56 kg PHYSICIAN NO [facility] 09-13-2024 15:36-0500 Diastolic blood pressure 82 mm[Hg] PHYSICIAN NO [facility] 09-13-2024 15:36-0500 Heart rate 84 /min PHYSICIAN NO [facility] 09-13-2024 15:36-0500 Respiratory rate 18 /min PHYSICIAN NO [facility] 09-13-2024 15:36-0500 SaO2% (BldA) [Mass fraction] 96 % PHYSICIAN NO [facility] 09-13-2024 15:36-0500 Systolic blood pressure 194 mm[Hg] PHYSICIAN NO [facility] 05-22-2024 10:28-0400 Body mass index (BMI) [Ratio] 18.83 kg/m2 Rio Ramirez [employer] Work Phone: [facility] 05-22-2024 10:28-0400 Body temperature 96.6 [degF] Rio Ramirez [employer] Work Phone: [facility] 05-22-2024 10:28-0400 Body weight 55.34 kg Rio Ramirez [employer] Work Phone: [facility] 05-22-2024 10:28-0400 Diastolic blood pressure 76 mm[Hg] Rio Ramirez [employer] Work Phone: [facility] 05-22-2024 10:28-0400 Heart rate 79 /min Rio Ramirez [employer] Work Phone: [facility] 05-22-2024 10:28-0400 SaO2% (BldA) [Mass fraction] 96 % Rio Ramirez [employer] Work Phone: [facility] 05-22-2024 10:28-0400 Systolic blood pressure 122 mm[Hg] Rio Ramirez [employer] Work Phone: [facility] 10-12-2023 11:08-0500 Diastolic blood pressure 63 mm[Hg] Prem Ding MD Work Phone: [facility] 10-12-2023 11:08-0500 Heart rate 102 /min Prem Ding MD Work Phone: [facility] 10-12-2023 11:08-0500 Respiratory rate 16 /min Prem Ding MD Work Phone: [facility] 10-12-2023 11:08-0500 SaO2% (BldA) [Mass fraction] 96 % Prem Ding MD Work Phone: [facility] [employer] 10-12-2023 11:08-0500 Systolic blood pressure 114 mm[Hg] [facility] 10-12-2023 06:05-0500 Body temperature 97.3 [degF] Prem Ding [facility] 10-11-2023 09:41-0500 Body mass index (BMI) [Ratio] 18.56 kg/m2 Prem Ding MD [facility] Phone[facility] 10-11-2023 09:41-0500 Body weight 53.75 kg Prem Ding MD Work Phone: [facility] 10-11-2023 09:34-0500 Body height 170.2 cm Prem Ding MD Work Phone: [facility] 09-27-2023 09:10-0500 Diastolic blood pressure 95 mm[Hg] PHYSICIAN NO [facility] 09-27-2023 09:10-0500 Heart rate 85 /min PHYSICIAN NO [facility] 09-27-2023 09:10-0500 Respiratory rate 20 /min PHYSICIAN NO [facility] 09-27-2023 09:10-0500 SaO2% (BldA) [Mass fraction] 98 % PHYSICIAN NO [facility] 09-27-2023 09:10-0500 Systolic blood pressure 180 mm[Hg] PHYSICIAN NO [facility] 09-27-2023 08:30-0500 Inhaled oxygen flow rate 2 L/min PHYSICIAN [facility] 09-27-2023 04:28-0500 Body temperature 97.4 [degF] PHYSICIAN NO [facility] 09-26-2023 13:01-0500 Body height 170.18 cm PHYSICIAN NO [facility] 09-26-2023 13:01-0500 Body weight 55.33 kg PHYSICIAN NO FAMILY [facility] 06-17-2023 20:40-0400 Body height 170.18 cm DO Cristiano House Work Phone: [facility] 06-17-2023 20:40-0400 Body temperature 98 [degF] DO Cristiano House Work Phone: [facility] 06-17-2023 20:40-0400 Body weight 55.33 kg DO Cristiano House Work Phone: [facility] 06-17-2023 20:40-0400 Diastolic blood pressure 78 mm[Hg] DO Cristiano House Work Phone: [facility] 06-17-2023 20:40-0400 Heart rate 102 /min DO Cristiano House Work Phone: [facility] 06-17-2023 20:40-0400 Respiratory rate 18 /min DO Cristiano House Work Phone: [facility] 06-17-2023 20:40-0400 SaO2% (BldA) [Mass fraction] 96 % DO Cristiano House Work Phone: [facility] 06-17-2023 20:40-0400 Systolic blood pressure 108 mm[Hg] DO Cristiano House Work Phone: [facility] 04-12-2023 13:27-0400 Diastolic blood pressure 87 mm[Hg] [facility] 04-12-2023 13:27-0400 Heart rate 74 /min [facility] 04-12-2023 13:27-0400 Respiratory rate 14 /min [facility] 04-12-2023 13:27-0400 Systolic blood pressure 149 mm[Hg] [facility] 03-09-2023 13:00-0400 Body height 170.18 cm Sobeida Blades Other [employer] Other 03-09-2023 13:00-0400 Body mass index (BMI) [Ratio] 18.64 kg/m2 Sobeida Blades Other [employer] Other 03-09-2023 13:00-0400 Body weight 53.98 kg Sobeida Blades Other [employer] Other 03-09-2023 13:00-0400 Diastolic blood pressure 62 mm[Hg] Sobeida Blades Other [employer] Other 03-09-2023 13:00-0400 Systolic blood pressure 118 mm[Hg] Sobeida Blades Other [employer] Other 10-28-2022 18:20-0400 Diastolic blood pressure 96 mm[Hg] DO Cristiano House Work Phone: [facility] 10-28-2022 18:20-0400 Heart rate 91 /min DO Cristiano House Work Phone: [facility] 10-28-2022 18:20-0400 Respiratory rate 18 /min DO Cristiano House Work Phone: [facility] 10-28-2022 18:20-0400 SaO2% (BldA) [Mass fraction] 95 % DO Cristiano House Work Phone: [facility] 10-28-2022 18:20-0400 Systolic blood pressure 167 mm[Hg] DO Cristiano House Work Phone: [facility] 10-28-2022 14:36-0400 Body temperature 98.1 [degF] DO Cristiano House Work Phone: [facility] 10-28-2022 14:35-0400 Body height 170.18 cm DO Cristiano House Work Phone: [facility] 10-28-2022 14:35-0400 Body weight 53.07 kg DO Cristiano House Work Phone: [facility] 09-16-2022 11:49-0500 Diastolic blood pressure 94 mm[Hg] DO Cristiano House Work Phone: [facility] 09-16-2022 11:49-0500 Heart rate 68 /min DO Cristiano House Work Phone: [facility] 09-16-2022 11:49-0500 Respiratory rate 16 /min DO Cristiano House Work Phone: [facility] 09-16-2022 11:49-0500 SaO2% (BldA) [Mass fraction] 99 % DO Cristiano House Work Phone: [facility] 09-16-2022 11:49-0500 Systolic blood pressure 168 mm[Hg] DO Cristiano House Work Phone: [facility] 09-16-2022 09:24-0500 Body height 170.18 cm DO Cristiano House Work Phone: [facility] 09-16-2022 09:24-0500 Body temperature 97.7 [degF] DO Cristiano House Work Phone: [facility] 09-16-2022 09:24-0500 Body weight 54.43 kg DO Cristiano House Work Phone: [facility] 09-13-2022 13:18-0500 Body height 170.2 cm Too Hughes MD Work Phone: [facility] 09-13-2022 13:18-0500 Body weight 57.15 kg Too Hughes MD Work Phone: [facility] 09-13-2022 13:18-0500 Diastolic blood pressure 74 mm[Hg] Too Hughes MD Work Phone: [facility] 01-30-2023 13:18-0500 Heart rate 78 /min Too Hughes MD Work Phone: [facility] 09-13-2022 13:18-0500 Respiratory rate 16 /min Too Hughes MD Work Phone: [facility] 09-13-2022 13:18-0500 SaO2% (BldA) [Mass fraction] 99 % Too Hughes MD Work Phone: [facility] 09-13-2022 13:18-0500 Systolic blood pressure 145 mm[Hg] Too Hughes MD Work Phone: [facility] 11-18-2021 13:45-0400 Body height 170.18 cm Jak Steele Other [employer] Other 11-18-2021 13:45-0400 Body mass index (BMI) [Ratio] 20.36 kg/m2 Jak Steele Other [employer] Other 11-18-2021 13:45-0400 Body temperature 96.6 [degF] Jak Steele Other [employer] Other 11-18-2021 13:45-0400 Body weight 58.97 kg Jak Steele Other [employer] Other 11-18-2021 13:45-0400 Diastolic blood pressure 62 mm[Hg] Jak Steele Other [employer] Other 11-18-2021 13:45-0400 SaO2% (BldA) [Mass fraction] 99 % Jak Steele Other [employer] Other 11-18-2021 13:45-0400 Systolic blood pressure 102 mm[Hg] Jak Steele Other [employer] Other 01-01-2021 08:03-0400 Body temperature 98.4 [degF] Bib Alvarez MD Work Phone: [employer] Work Phone: 01-01-2021 08:03-0400 Diastolic blood pressure 56 mm[Hg] Bib Alvarez MD Work Phone: [employer] Work Phone: 01-01-2021 08:03-0400 Heart rate 106 /min Bib Alvarez MD Work Phone: [employer] Work Phone: 01-01-2021 08:03-0400 Respiratory rate 20 /min Bib Alvarez MD Work Phone: [employer] Work Phone: 01-01-2021 08:03-0400 SaO2% (BldA) [Mass fraction] 95 % Bib Alvarez MD Work Phone: [employer] Work Phone: 01-01-2021 08:03-0400 Systolic blood pressure 110 mm[Hg] Bib Alvarez MD Work Phone: [employer] Work Phone: 12-30-2020 07:33-0400 Body height 170.2 cm Bib Alvarez MD Work Phone: [employer] Work Phone: 12-30-2020 07:33-0400 Body mass index (BMI) [Ratio] 20.36 kg/m2 Bib Alvarez MD Work Phone: [employer] Work Phone: 12-30-2020 07:33-0400 Body weight 58.97 kg Bib Alvarez MD Work Phone: [employer] Work Phone: Encounters Encounter Date Encounter Type Care Provider Facility Start: 05-22-2025 ambulatory [facility] Start: 05-06-2025 End: 05-06-2025 ambulatory CHUKA ONYENEKE Not Available Start: 04-25-2025 End: 04-25-2025 Lore Power MD Work Phone: [facility] Start: 04-25-2025 End: 04-25-2025 Lore Power MD Work Phone: [facility] Start: 04-25-2025 End: 04-25-2025 ambulatory LORA POWER Not Available Comment on above: Other nerve root and plexus disorders (Primary Dx); Status post lumbar spinal fusion; Myalgia Start: 04-16-2025 End: 04-16-2025 ambulatory NON STAFF [facility] Work Phone: Start: 04-16-2025 End: 04-16-2025 Patient encounter procedure Yodit [facility] Work Phone: Start: 04-08-2025 End: 04-08-2025 ambulatory CHUKA ONYENEKE Not Available Start: 03-27-2025 End: 03-27-2025 ambulatory CHUKA ONYENEKE Not Available Start: 03-15-2025 Non-patient / Non-visit [facility] Work Phone: Start: 03-15-2025 End: 03-20-2025 Evaluation and management of inpatient Mohamad Kentrell Facility:[facility] Start: 12-29-2024 End: 12-29-2024 Patient encounter procedure Lora Power MD -MRI [facility] [place] Work Phone: Start: 12-29-2024 End: 12-29-2024 ambulatory Lora Power Facility:[facility] Start: 12-25-2024 End: 12-25-2024 Telephone encounter Shana Jacob Other Phone: [facility] Start: 12-12-2024 End: 12-12-2024 Viridiana Jarrett PACKAGER AND STRAPPER Work Phone: [facility] Comment on above: Claustrophobia (CMS/ HCC) Start: 11-26-2024 End: 11-26-2024 ambulatory LORA POWER Not Available Start: 10-24-2024 End: 10-24-2024 ambulatory CHUKA ONYENEKE Not Available Start: 10-17-2024 End: 10-17-2024 ambulatory CHUKA ONYENEKE Not Available Start: 09-27-2024 End: 09-27-2024 Office outpatient new 45 minutes Lora Power MD Work Phone: [facility] NEUR Comment on above: Lumbar radiculopathy (Primary Dx); PHN (postherpetic neuralgia) (CMS/HCC); Status post lumbar spinal fusion; Cervical myelopathy (CMS/HCC) Start: 09-27-2024 End: 09-27-2024 ambulatory LORA POWER Not Available Start: 09-14-2024 End: 09-14-2024 ambulatory CHUKA ONYENEKE Not Available Start: 09-13-2024 End: 09-13-2024 Emergency department patient visit PHYSICIAN [facility]-Emergency Room Work Phone: Start: 05-22-2024 End: 05-22-2024 ambulatory RIO RAMIREZ Not Available Start: 05-22-2024 End: 05-22-2024 Office outpatient visit 25 minutes Rio Ramirez PACKAGER AND STRAPPER Work Phone: [facility] UC Comment on above: Chronic cough (Prima ry Dx); Rib pain on left side; Inspiratory pain; Closed fracture of multiple ribs of left side, initial encounter Start: 05-07-2024 End: 05-09-2024 Subsequent hospital visit by physician Mady Clay PA Work Phone: [facility] MRI Comment on above: Lumbar radiculopathy Start: 04-02-2024 End: 04-02-2024 Clinical Support Ciera Egan PTA [facility] PT Comment on above: Lumbar radiculopathy (Primary Dx); Status post lumbar spinal fusion Start: 04-02-2024 End: 04-02-2024 Bamboo flowsheet Ciera Egan FIELD MANAGER [facility] Start: 04-02-2024 End: 04-02-2024 Bamboo flowsheet Ciera Egan FIELD MANAGER [facility] Start: 10-11-2023 End: 10-12-2023 Subsequent hospital visit by physician Prem Ding MD Work Phone: [facility] Start: 09-27-2023 End: 09-29-2023 Evaluation and management of inpatient CRISTIANO P HOU[facility] Start: 09-26-2023 End: 09-27-2023 Emergency department patient visit PHYSICIAN ABDIRASHID RIVAS [facility]-Emergency [facility] Work Phone: Start: 08-30-2023 End: 08-31-2023 ambulatory [facility] Start: 08-24-2023 End: 08-29-2023 ambulatory [facility] Start: 06-23-2023 End: 06-23-2023 ambulatory DO Cristiano Graham Work Phone: [facility] Work Phone: Start: 06-23-2023 End: 06-23-2023 Patient encounter procedure DO Cristiano Graham Work Phone: [facility]-MRI [address] Work Phone: Start: 06-20-2023 End: 06-20-2023 ambulatory Sobeida Blades Other [employer] Other Start: 06-20-2023 Telephone encounter Sobeida Benítezs F PG Help Desk Support Specialist Start: 06-17-2023 End: 06-17-2023 Emergency department patient visit DO Cristiano Graham Work Phone: [facility]-Emergency Room Work Phone: Start: 05-18-2023 End: 05-18-2023 ambulatory Sobeida Blades Other [employer] Other Start: 05-18-2023 Telephone encounter Sobeida Blades F PG [facility] Neurosurgery Start: 05-17-2023 End: 05-17-2023 ambulatory Sobeida Blades Other [employer] Other Start: 05-17-2023 Telephone encounter Sobeida Blades F PG [facility] Neurosurgery Start: 04-12-2023 End: 04-13-2023 ambulatory SOBEIDA A BLADES Facility:[facility] Start: 04-12-2023 End: 04-12-2023 Pain Management [facility] Start: 04-12-2023 End: 04-12-2023 ambulatory DO Cristiano House Work Phone: [facility] Work Phone: Start: 04-12-2023 End: 04-12-2023 Patient encounter procedure DO Cristiano House Work Phone: [facility] [place] Work Phone: Start: 03-09-2023 End: 03-09-2023 ambulatory Sobeida Blades Other [employer] Other Start: 03-09-2023 Office outpatient vi sit 15 minutes Sobeida Blades [facility] Neurosurgery Start: 02-10-2023 ambulatory Darlyn Kaufman RN Interna l Medicine [facility] Comment on above: Blood Management Start: 12-17-2022 ambulatory Too lagos MD Work Phone: [facility] Comment on above: Nicotine Testing Start: 12-17-2022 E-mail encounter fro m caregiver Too Hughes MD Work Phone: [facility] Start: 11-20-2022 End: 11-20-2022 ambulatory TOO HUGHES Facility:[facility] Start: 11-20-2022 End: 11-20-2022 ambulatory Too Hughes MD Work Phone: [facility] Comment on above: Cervical myelopathy (HCC) (Primary Dx); Cervical radiculopathy Start: 11-20-2022 End: 11-20-2022 Telemedicine consultation with patient Too Hughes MD Work Phone: [facility] Start: 11-07-2022 ambulatory Too lagos MD Work Phone: [facility] Comment on above: My back and neck Start: 10-28-2022 End: 10-28-2022 Emergency department patient visit DO Cristiano Graham Work Phone: [facility]-Emergency Room Work Phone: Start: 10-07-2022 End: 10-08-2022 ambulatory CRISTIANO Barnes [place] Facility:[facility] Start: 10-07-2022 End: 10-07-2022 Emergency department patient visit KIKA Alex Facility:[facility] Start: 10-07-2022 Telephone encounter Too Hughes MD Work Phone: [facility] Comment on above: Surgery recsheduling ; Care Coordination Start: 09-28-2022 ambulatory Too lagos MD Work Phone: [facility] Comment on above: Pain Start: 09-27-2022 End: 09-27-[address] DARCIE CADET Facility:[facility] Start: 09-17-2022 Telephone encounter Too Hughes MD Work Phone: [facility] Comment on above: Schedule Surgery; Ca re Coordination Start: 09-16-2022 End: 09-16-2022 Admission to same day surgery center DO Cristiano Graham Work Phone: [facility]Digestive [facility] Work Phone: Start: 09-16-2022 End: 09-16-2022 ambulatory DO Cristiano Graham Work Phone: [facility] Work Phone: Start: 09-13-2022 End: 09-13-2022 ambulatory [facility]RISTIANO D[facility] Facility:[facility] Start: 09-13-2022 End: 09-14-2022 ambulatory TOO HUGHES Facility:[facility] Start: 09-13-2022 End: 09-13-2022 Subsequent hospital visit by physician [facility] Comment on above: Spinal stenosis of c ervical region [M48.02] Start: 09-13-2022 End: 09-13-2022 Patient encounter procedure Too Hughes MD Work Phone: [facility] Comment on above: Spinal stenosis of c ervical region (Primary Dx); Pseudarthrosis following spinal fusion; Lumbar radiculopathy; 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 Start: 08-04-2022 End: 08-04-2022 ambulatory Lei ANAND-C Work Phone: [facility] Comment on above: My virtual visit Start: 08-04-2022 Telephone encounter Lei ANAND-C Work Phone: [facility] Comment on above: Patient Update Start: 07-30-2022 Telephone encounter Joanie loera APRN.CNP Work Phone: Neurology Comment on above: Opened In Error Appointment Start: 07-21-2022 ambulatory Lei blakely PA-C Work Phone: [facility] Comment on above: My test results Start: 07-21-2022 Telephone encounter Lei ANAND-C Work Phone: Neurology Comment on above: Received Outside Med ical Records Results Start: 07-13-2022 End: 07-13-2022 ambulatory DO Cristiano House Work Phone: [facility] Work Phone: Start: 07-13-2022 End: 07-13-2022 Patient encounter procedure DO Cristiano Graham Work Phone: [facility] [place] Start: 06-25-2022 End: 06-26-[address] ERIC HE Facility: Start: 06-21-2022 End: 06-21-2022 ambulatory Michel Venegas Other [employer] Other Start: 06-21-2022 Telephone encounter Michel Perrykedar serrano [employer] Help Desk Support Specialist Start: 06-16-2022 End: 06-16-2022 ambulatory Michel Venegas Other [employer] Other Start: 06-16-2022 Telephone encounter Michel Arias zach [employer] Help Desk Support Specialist Start: 05-10-2022 End: 05-10-2022 ambulatory DO Cristiano House Work Phone: [facility] Work Phone: Start: 05-10-2022 End: 05-10-2022 Discharged Recurring DO Cristiano House Work Phone: [facility]-Physical Therapy [facility] Start: 03-05-2022 End: 03-05-2022 Patient encounter procedure DO Cristiano House Work Phone: [facility] [place] Start: 01-01-2022 End: 01-01-2022 ambulatory Lei Martinez PA-C Work Phone: [facility] Comment on above: Neck pain, chronic ( Primary Dx); Chronic bilateral low back pain with right-sided sciatica Start: 01-01-2022 End: 01-01-2022 Telemedicine consultation with patient Lei Martinez PA-C Work Phone: [facility] Start: 11-26-2021 End: 11-26-2021 ambulatory Vick Maxwell Other [employer] Other Start: 11-26-2021 Office outpatient vi sit 25 minutes Vick Maxwell [facility] [place] Start: 11-18-2021 End: 11-18-2021 ambulatory Jak Steele Other [employer] Other Start: 11-18-2021 Office outpatient vi sit 10 minutes Jak Steele [facility] Start: 06-25-2021 Chart Update Maia rios PA-C Work Phone: [facility] Work Phone: Start: 06-25-2021 Chart Update Maia rios PA-C Work Phone: [facility] Work Phone: Start: 12-30-2020 End: 01-01-2021 Evaluation and management of inpatient SR [facility] Start: 12-30-2020 End: 01-02-2021 ambulatory SR CRISTIANO [facility] Start: 12-30-2020 End: 01-01-2021 Evaluation and management of inpatient Bib Alvarez MD Work Phone: [facility] Comment on above: Post-op pain (Primar y Dx) Start: 12-30-2020 End: 01-01-2021 Subsequent hospital visit by physician Bib Alvarez MD Work Phone: [facility] Radiology Comment on above: Pain Start: 10-27-2020 End: 10-30-[address] [facility] Start: 10-27-2020 End: 10-29-2020 Subsequent hospital visit by physician Rasheed Xray Room 6 [facility] Radiology Comment on above: Pre-op examination Procedures Date Procedure Procedure Detail Performing Clinician Start: 12-29-2024 MRI of lumbar spine with contrast PHYSICIAN NO FAMILY Start: 12-29-2024 XR pre/post mri xray PH YSICIAN NO FAMILY Start: 05-07-2024 Mri spinal canal lum bar w/o contrast material Mady ANAND Work Phone: Start: 10-11-2023 End: 10-11-2023 Removal posterior segmental instrumentation Prem Ding MD Work Phone: Start: 09-26-2023 Computerized axial tomography of lumbar spine with contrast PHYSICIAN NO FAMILY Start: 06-23-2023 MR lumbar spine wo con DO [facility] Work Phone: Start: 06-23-2023 MRI of cervical spin e without contrast DO [facility] Work Phone: Start: 10-28-2022 XR pre/post mri xray DO [facility] Work Phone: Start: 10-28-2022 MRI of cervical spin e without contrast DO [employer] Work Phone: Start: 10-28-2022 MRI of cervical spin e with contrast DO [facility] Work Phone: Start: 09-16-2022 Colonoscopy DO [facility] Work Phone: Start: 09-13-2022 Radex entir thrc [...] Work Phone: Start: 10-30-2019 Cervical arthrodesis Bria Sherman Ankle region structu re (body structure) [...] DTaP/Tdap/Td vaccine (2 - Td or Tdap) [facility] Start: 06-20-2025 End: 06-20-2025 Clinical Support 06/20/2025 1:00 PM EST Clinical Support [facility] [address] [address] [place] [id number] Lora Power MD [address] [facility] [address] [place] [address] [facility] Start: 04-25-2025 End: 04-25-2025 Clinical Support 04/25/2025 10:00 AM EDT Clinical Support [facility] [address] [facility] [address] [place] [id number] Lora Power MD [address] [facility] [address] [place] [address] Arrived [facility] Comment on above: Arrived Start: 03-20-2025 [facility] Start: 03-19-2025 Administration of prophylactic treatment [facility] Start: 03-18-2025 [facility] Start: 03-18-2025 Referral to infectious diseases physician [facility] Start: 03-18-2025 Referral to palliative care physician [facility] Start: 03-16-2025 Referral to belt measurer [facility] Start: 03-16-2025 Referral to ophthalmic aide [facility] Start: 03-15-2025 Hospital admission [facility] Start: 11-21-2024 End: 11-21-2024 Patient encounter procedure 11/21/2024 2:20 PM EDT Office Visit [facility] [address] [place] [address] Lora Power MD [address] [facility] [address] [address] [facility] Start: 11-01-2024 End: 11-01-2024 Patient encounter procedure 11/01/2024 2:00 PM EDT Procedure Visit [facility] [address] [place] [address] [facility] Start: 10-17-2024 End: 10-17-2024 Patient encounter procedure 10/17/2024 2:00 PM EST Procedure Visit [facility] [address] [facility] [address] [place] [address] [facility] Start: 09-28-2024 End: 09-27-2025 EMG 2 Extremities [facility] Work Phone: Comment on above: Expected: 09/28/2024 (Approximate), Expi res: 09/27/2025 Start: 09-28-2024 End: 09-27-2025 MR Cervical spine WO and W contrast IV MR cervical spine w and wo contrast Imaging Routine Cervical myelopathy (CMS/HCC) Expected: 09/28/2024 (Approximate), Expires: 09/27/2025 [facility] Comment on above: Expected: 09/28/2024 (Approximate), Expi res: 09/27/2025 Start: 09-28-2024 End: 09-27-2025 MR Lumbar spine WO and W contrast IV MR lumbar spine w and wo contrast Imaging Routine Lumbar radiculopathy Status post lumbar spinal fusion Expected: 09/28/2024 (Approximate), Expires: 09/27/2025 [facility] Comment on above: Expected: 09/28/2024 (Approximate), Expi res: 09/27/2025 Start: 09-13-2024 [facility] Start: 05-30-2024 End: 05-30-2024 Patient encounter procedure 05/30/2024 11:10 AM EDT Office Visit [facility] Neurosurgery [address], [address] [place], [place] [id number] Prem Ding MD [address] [place] [address] Lumbar F/U, review MRI Lumbar at [facility] Neurosurgery Comment on above: Lumbar F/U, review MRI Lumbar at [facility] Start: 04-23-2024 End: 04-23-2024 Clinical Support 04/23/2024 3:30 PM EDT Clinical Support [facility] PT [address] [place] [address] Ciera Egan PTA [facility] PT Start: 04-15-2024 COVID-19 Vaccine ( season) COVID-19 Vaccine () [facility] Start: 04-10-2024 End: 04-10-2024 Clinical Support 04/10/2024 3:00 PM EDT Clinical Support [facility] PT [address] [place] [address] Ciera Egan PTA [facility] PT Start: 04-09-2024 End: 04-09-2024 Clinical Support 04/09/2024 3:00 PM EDT Clinical Support [facility] PT [address] [place] [address] Ciera Egan PTA [facility] PT Start: 04-04-2024 End: 04-04-2024 Clinical Support 04/04/2024 3:00 PM EDT Clinical Support [facility] [address] [place] [address] Ciera Egan PTA [facility] Start: 04-02-2024 End: 04-02-2024 Clinical Support 04/02/2024 3:00 PM EDT Clinical Support [facility] [address] [place] [address] Ciera Egan PTA Arrived [facility] PT Comment on above: Arrived Start: 03-15-2024 Influenza vaccination Flu vaccine (#1) [facility] Start: 12-03-2023 DIABETES SCREEN DIABETES SCREEN [facility] Start: 11-07-2023 End: 11-07-2023 Patient encounter procedure 11/07/2023 11:40 AM EDT Office Visit [facility] Neurosurgery [address] [place] [address], [address] [place] [address] Prem Ding MD [address] [place] [address] [address] [place] [address] 4 week 1st post op-Removal of Previous Hardware w/Redo Lami and Extension of Fusion to L2-3 [facility] Neurosurgery Comment on above: 4 week 1st post op-Removal of Previous H ardware w/Redo Lami and Extension of Fusion to L2-3 Start: 09-26-2023 Bacteria identified in Blood by Culture [facility] Start: 09-26-2023 Urine culture Urine Culture [facility] Start: 2023 Screening for malignant neoplasm of breast Breast cancer screen [facility] Start: 2023 Shingles vaccine (1 of 2) Shingles vaccine (1 of 2) [facility] Start: 04-15-2023 Influenza vaccination INFLUENZA (Season Ended) [facility] Start: 03-15-2023 Influenza vaccination Flu vaccine (#1) [facility] Start: 10-15-2022 End: 09-17-2023 Hemoglobin A1c in Blood HGB A1C Lab Routine Personal history of other endocrine, nutritional and metabolic disease Expected: 10/15/2022 (Approximate), Expires: 09/17/2023 [facility] Work Phone: Comment on above: Expected: 10/15/2022 (Approximate), Expi res: 09/17/2023 Start: 10-15-2022 End: 09-17-2023 NICOTINE/COTININE NICOTINE/COTININE Lab Routine Current smoker Expected: 10/15/2022 (Approximate), Expires: 09/17/2023 [facility] Work Phone: Comment on above: Expected: 10/15/2022 (Approximate), Expi res: 09/17/2023 Start: 09-18-2022 End: 09-17-2023 CBC W Auto Differential panel - Blood CBC + DIFF Lab Routine Anemia, unspecified type Expected: 09/18/2022 (Approximate), Expires: 09/17/2023 [facility] Work Phone: Comment on above: Expected: 09/18/2022 (Approximate), Expi res: 09/17/2023 Start: 09-18-2022 End: 09-17-2023 Ferritin [Mass/volume] in Serum or Plasma FERRITIN BLD Lab Routine Anemia, unspecified type Expected: 09/18/2022 (Approximate), Expires: 09/17/2023 [facility] Work Phone: Comment on above: Expected: 09/18/2022 (Approximate), Expi res: 09/17/2023 Start: 09-18-2022 End: 09-17-2023 Iron and Iron binding capacity panel - Serum or Plasma IRON + TIBC Lab Routine Anemia, unspecified type Expected: 09/18/2022 (Approximate), Expires: 09/17/2023 [facility] Work Phone: Comment on above: Expected: 09/18/2022 (Approximate), Expi res: 09/17/2023 Start: 09-16-2022 End: 09-16-2022 [facility] Start: 09-01-2022 Influenza vaccination [facility] Start: 12-31-2021 Creatinine measurement Creatinine monitoring [employer] Phone: Start: 12-31-2021 Potassium monitoring Potassium monitoring [employer] Phone: Start: 11-13-2021 COLORECTAL CANCER SCREENING COLORECTAL CANCER SCREENING [facility] Start: 11-13-2021 FECAL OCCULT BLOOD FECAL OCCULT BLOOD [facility] Start: 10-27-2021 Creatinine measurement Creatinine monitoring [employer] Phone: Start: 10-27-2021 Potassium monitoring Potassium monitoring [employer] Phone: Start: 04-15-2021 Influenza vaccination Flu vaccine (Season Ended) [employer] Phone: Start: 01-16-2021 End: 01-16-2021 Patient encounter procedure 01/16/2021 Office Visit Neurosurgery Bib Alvarez MD [address] [facility] [address] [place], [place] [id number] [employer] [facility] Neurosurgery Start: 11-14-2020 End: 11-14-2020 Office Visit 11/14/2020 Office Visit Neurosurgery Bib Alvarez MD [address], [address] [place], [place] [id number] [employer] Start: 04-15-2020 Influenza vaccination Flu vaccine (#1) [employer] Phone: Start: 2018 COLOGUARD (FIT-DNA) COLOGUARD (FIT-DNA) [facility] Start: 2018 Colonoscopy COLONOSCOPY [facility] Start: [address] COLONOGRAPHY [facility] Start: 2018 LIPID SCREEN LIPID SCREEN [facility] Start: 2018 [facility] Start: 2018 SIGMOIDOSCOPY SIGMOIDOSCOPY [facility] Start: 2013 [facility] Start: 2013 Mammography MAMMOGRAM [facility] Start: 2013 Screening for malignant neoplasm of breast Breast cancer screen [employer] Start: 2003 HPV TESTING HPV TESTING [facility] Start: 2003 Zoledronic acid therapy ALPHA-1 ANTITRYPSIN DEFICIENCY SCREENING [facility] Start: 1994 PAP TESTING PAP TESTING [facility] Start: 1992 DTaP/Tdap/Td vaccine (1 - Tdap) DTaP/Tdap/Td vaccine (1 - Tdap) [employer] Phone: Start: 1992 Hepatitis B vaccine (1 of 3 - 19+ 3-dose series) Hepatitis B vaccine (1 of 3 - 19+ 3-dose series) [employer] Start: 1992 Urine microalbumin profile DTAP,TDAP,TD (1 - Tdap) [facility] Start: 1991 ANNUAL PCP TEAM CHRONIC DISEASE VISIT ANNUAL PCP TEAM CHRONIC DISEASE VISIT [facility] Start: 1991 HEPATITIS C SCREENING HEPATITIS C SCREENING [facility] Start: 1991 Hepatitis C screening Hepatitis C screen [facility] [employer] Start: 1991 HIV SCREENING HIV SCREENING [facility] Start: 1991 SPIROMETRY SPIROMETRY [facility] Start: 1988 HIV screening HIV screen [employer] Start: 1985 COVID-19 Vaccine (1) COVID-19 Vaccine (1) [employer] Phone: Start: 1985 Depression Monitoring Depression Monitoring [employer] Start: 1979 PNEUMOCOCCAL (1 - PCV) PNEUMOCOCCAL (1 - PCV) [facility] Start: 1979 Pneumococcal 0-64 years Vaccine (1 - PCV) Pneumococcal 0-64 years Vaccine (1 - PCV) [employer] Start: 1979 Pneumococcal 0-64 years Vaccine (1 of 1 - PPSV23) Pneumococcal 0-64 years Vaccine (1 of 1 - PPSV23) [employer] Phone: Start: 1979 Pneumococcal 0-64 years Vaccine (1 of 2 - PCV) Pneumococcal 0-64 years Vaccine (1 of 2 - PCV) [employer] Start: 1979 Pneumococcal 0-64 years Vaccine (1 of 2 - PPSV23) Pneumococcal 0-64 years Vaccine (1 of 2 - PPSV23) [email or web address] [employer] Phone: Start: 1978 COVID-19 VACCINE (#1) COVID-19 VACCINE (#1) [facility] Start: 01-24-1974 COVID-19 VACCINE (#1) COVID-19 VACCINE (#1) [facility] Start: 1973 HEPATITIS B (1 of 3 - 3-dose series) HEPATITIS B (1 of 3 - 3-dose series) [facility] Start: 1973 Hepatitis B vaccine (1 of 3 - 3-dose series) Hepatitis B vaccine (1 of 3 - 3-dose series) [facility] [employer] [facility] Start: 1973 Hepatitis C screening Hepatitis C screen [facility] [employer] Phone: Alanine aminotransfe rase [Enzymatic activity/volume] in Serum or Plasma by No addition of P-5'-P [facility] Albumin [Mass/volume ] in Serum or Plasma [facility] Albumin/Globulin ratio [facility] Albumin/Globulin ratio [facility] Alkaline phosphatase [Enzymatic activity/volume] in Serum or Plasma [facility] Anion gap measurement [facility] Anion gap measurement [facility] Aspartate aminotrans ferase [Enzymatic activity/volume] in Serum or Plasma [facility] Basophils [#/volume] in Blood by Automated count [facility] Basophils/100 leukoc ytes in Blood by Automated count [facility] Bilirubin.total [Mass/volume] in Serum or Plasma [facility] End: 10-11-2023 Blood glucose - POCT Blood glucose - POCT Point of Care Testing Routine One Time for 1 Occurrences starting 10/11/2023 until 10/11/2023 [facility] [employer] Phone: Comment on above: One Time for 1 Occurrences starting 09/16 until 10/11/2023 C reactive protein [Mass/volume] in Serum or Plasma [facility] Calcium [Mass/volume ] in Serum or Plasma [facility] Carbon dioxide, tota l [Moles/volume] in Serum or Plasma [facility] Chloride [Moles/volu me] in Serum or Plasma [facility] Continuous pulse oximetry Pulse oximetry, continuous Respiratory Care Routine Every 4hr until discontinued starting 12/30/2020 [employer] Phone: Comment on above: Every 4hr until discontinued starting Creatinine and Glome rular filtration rate.predicted panel - Serum, Plasma or Blood [facility] Eosinophils/100 leuk ocytes in Blood by Automated count [facility] Erythrocyte distribu tion width [Ratio] by Automated count [facility] Erythrocyte sediment ation rate by Photometric method [facility] Erythrocytes [#/volu me] in Blood [facility] Gliadin peptide+tiss ue transglutaminase IgA+IgG Ab [Presence] in Serum by Immunoassay [facility] Globulin [Mass/volum e] in Serum [facility] Globulin [Mass/volum e] in Serum [facility] Glucose [Mass/volume ] in Serum or Plasma [facility] End: 10-11-2023 Guidance-- during surgery [employer] Phone: Comment on above: Once for 1 Occurrences starting 10/11/19 24 until 10/11/2023 Hematocrit [Volume Fraction] of Blood [facility] Hemoglobin [Mass/vol ume] in Blood [facility] Initiate RT Inhaler-Nebulizer Bronchodilator Protocol Initiate RT Inhaler-Nebulizer Bronchodilator Protocol Respiratory Care Routine Daily until discontinued starting 10/11/2023 [employer] Comment on above: Daily until discontinued starting 2023 Leukocytes [#/volume ] corrected for nucleated erythrocytes in Blood by Automated coun [facility] Leukocytes [#/volume ] in Blood [facility] Lymphocytes [#/volum e] in Blood by Automated count [facility] Lymphocytes/100 leuk ocytes in Blood by Automated count [facility] MCH [Entitic mass] b y Automated count [facility] MCHC [Mass/volume] b y Automated count [facility] MCV [Entitic volume] by Automated count [facility] MDI treatment MDI treatment Respiratory Care Routine 4x Daily PRN until discontinued starting 10/11/2023 [facility] [employer] [facility] Comment on above: 4x Daily PRN until discontinued starting 10/11/2023 Measurement of renal function [facility] Monocytes [#/volume] in Blood by Automated count [facility] Monocytes/100 leukoc ytes in Blood by Automated count [facility] End: 10-13-2023 Mri spinal canal cervical w/o contrast matrl MRI CERVICAL SPINE WO IVCON Radiology Routine Spinal stenosis of cervical region 1 Occurrences starting 09/13/2022 until 10/13/2023 [facility] Work Phone: Comment on above: 1 Occurrences starting 09/13/2022 until 10/13/2023 Neutrophils [#/volum e] in Blood by Automated count [facility] Neutrophils/100 leuk ocytes in Blood by Automated count [facility] Nucleated erythrocyt es [Presence] in Blood by Automated count [facility] Oxygen therapy [Mini mum Data Set] Initiate Oxygen Therapy Protocol Respiratory Care Routine Daily until discontinued starting 12/30/2020 [employer] Work Phone: Comment on above: Daily until discontinued starting 2020 Oxygen therapy [Mini mum Data Set] Initiate Oxygen Therapy Protocol Respiratory Care Routine As Needed until discontinued starting 10/11/2023 [facility] Comment on above: As Needed until discontinued starting Patient Education [facility] Work Phone: Patient referral [facility] Work Phone: Platelet mean volume [Entitic volume] in Blood by Automated count [facility] Platelets [#/volume] in Blood [facility] Potassium [Moles/vol ume] in Serum or Plasma [facility] End: 10-11-2023 , urine POCT , urine POCT Point of Care Testing Routine One Time for 1 Occurrences starting 10/11/2023 until 10/11/2023 [facility] Comment on above: One Time for 1 Occurrences starting 09/16 until 10/11/2023 Protein [Mass/volume ] in Serum or Plasma [facility] Sodium [Moles/volume ] in Serum or Plasma [facility] Spirometry panel Incentive alyce metry Respiratory Care Routine Every 2hr while awake until discontinued starting 12/30/2020 [employer] Phone: Comment on above: Every 2hr while awake until discontinued starting 12/30/2020 Spirometry panel Incent[employer] alyce metry Respiratory Care Routine Every 2hr while awake until discontinued starting 10/11/2023 [facility] [employer] Comment on above: Every 2hr while awake until discontinued starting 10/11/2023 Surgical Pathology Surgical Path ology Lab Routine Release Upon Ordering for 1 Occurrences starting 12/30/2020 [employer] Phone: Comment on above: Release Upon Ordering for 1 Occurrences starting 12/30/2020 Urea nitrogen [Mass/ volume] in Serum or Plasma [facility] End: 10-27-2020 XR SPINE ENTIRE (2-3 VWS) XR SPINE ENTIRE (2-3 VWS) Imaging Routine Pre-op examination 1 Occurrences starting 10/27/2020 until 10/27/2020 [employer] Phone: Comment on above: 1 Occurrences starting 10/27/2020 until 10/27/2020 XR SPINE ENTIRE (2-3 VWS) XR SPI NE ENTIRE (2-3 VWS) Imaging Routine Pre-op examination 10/27/2020 11:32 AM EDT [employer] Phone: [facility] Payers Date Payer Category Payer Self-pay [id number] 2016 Medicaid [employer] [id number] 2016-Present [phone] [address] [place] [address] Medicaid [id number] 2016 Medicaid [id number] 2016 Private Health Insurance [facility] MEDICAID [id number] 1973 Unknown [id number] 2.16.840.1.508062.3.579.2. 182 1973 Unknown [id number] 2.16.840.1.967780.3.579.2. 182 1973 Unknown [id number] 2.16.840.1.060075.3.579.2. 182 1973 Unknown [id number] 2.16.840.1.941946.3.579.2. 593 1973 Unknown [id number] 2.16.840.1.597654.3.579.2. 593 1973 Unknown [id number] 2.16.840.1.150889.3.579.2. 593 1973 Unknown [id number] 2.16.840.1.764800.3.579.2. 718 1973 Unknown [id number] 2.16.840.1.717319.3.579.2. 718 1973 Unknown [id number] 2.16.840.1.632928.3.579.2. 727 1973 Unknown [id number] 2.16.840.1.869517.3.579.2. 177 1973 Unknown [id number] 2.16.840.1.489869.3.579.2. 177 1973 Unknown [id number] 2.16.840.1.012905.3.579.2. 177 1973 Unknown [id number] 2.16.840.1.790973.3.579.2. 1259 1973 Unknown [id number] 2.16.840.1.014528.3.579.2. 1258 1973 Unknown [id number] 2.16.840.1.195128.3.579.2. 1258 1973 Unknown [id number] 2.16.840.1.198903.3.579.2. 1258 1973 Unknown [id number] 2.16.840.1.390554.3.579.2. 1258 1973 Unknown [id number] 2.16.840.1.687848.3.579.2. 1258 1973 Unknown [id number] 2.16.840.1.794648.3.579.2. 1258 1973 Unknown [id number] 2.16.840.1.670513.3.579.2. 1258 1973 Unknown [id number] 2.16.840.1.097859.3.579.2. 9 1973 Unknown [id number] 2.16.840.1.718629.3.579.2. 1258 1973 Unknown [id number] 2.16.840.1.702193.3.579.2. 1258 1973 Unknown [id number] 2.16.840.1.254883.3.579.2. 175 1959 Medicaid [id number] 1959 Unknown [id number] 1.2.840.859705.1.13.239.2. 7.3.520074.315 Unknown [id number] 2.16.840.1.933329.3.579.2. 531 Unknown [id number] 2.16.840.1.868889.3.579.2. 531 Unknown [id number] 2.16.840.1.481598.3.579.2. 531 Social History Date Type Detail Facility Start: 10-27-2020 End: 05-22-2024 Tobacco smoking status NVIS Current every day smoker [facility] Start: 10-27-2020 End: 08-24-2023 Tobacco use and exposure Current user [employer] Phone: Start: 10-27-2020 End: 04-25-2025 Alcohol intake Current drinker of alcohol (finding) [employer] Phone: Start: 10-27-2020 History SDOH Financial 5 [employer] Phone: Start: 10-27-2020 History SDOH Food Worry 1 [employer] Phone: Start: 10-27-2020 History SDOH Transport Med 2 [employer] Phone: Start: 1975 Sex Assigned At Not on file M [place] [employer] Phone: Exposure to SARS-CoV-2 (event) Not sure [employer] Phone: History of tobacco use Cigarette Smoker [facility] Start: 06-30-2017 End: 04-25-2025 Cigarettes smoked current (pack per day) - Reported 2 [facility] [employer] Start: 06-30-2017 End: 05-22-2024 Tobacco use and exposure Smokeless tobacco non-user [facility] Start: 06-30-2017 History SDOH Alcohol Comment social [facility] Start: 10-11-2023 End: 04-25-2025 Sex Assigned At [facility] Start: 1975 Sex Assigned At Female F [facility] Start: 09-16-2022 End: 09-13-2024 Tobacco smoking status NVIS Smoker (finding) [facility] Tobacco Cigarettes, 2 per day. [facility] Tobacco smoking status No Smoking Status Entered [facility] Has the electric, gas, oil, or water company threatened to shut off services in your home in past 12Mo No [employer] How often to you hav e a drink containing alcohol? 2-4 times a month [employer] How many standard drinks containing alcohol do you have on a typical day? 1 or 2 [employer] How often do you hav e 6 or more drinks on 1 occasion? Never [employer] How hard is it for you to pay for the very basics like food, housing, medical care, and heating Not hard at all [employer] (I/We) worried whether (my/our) food would run out before (I/we) got money to buy more. Never true [employer] Start: 07-18-2023 Alcohol Comment occas [facility] Tobacco smoking status NHIS Tobacco smoking consumption unknown [facility] Start: 09-13-2024 Sex Female (finding) [facility] NEGATED: Highlighted row [facility] Medical Equipment Procedure Code Equipment Code Equipment Origin al Text Equipment Identifier Dates Graft Bne Sub 15 ml 1.7-10mm Canc Chip Morselized Frz Dry - [id number] Start: 12-30-2020 Graft Bne Sub 15 ml 1.7-10mm Canc Chip Mors[employer]ized Frz Dry - [id number] Start: 12-30-2020 Kit Bne Grft Sm Rhbmp-2 4.2mg Inj 5ml Contain Ndl 20ga [id number] Start: 12-30-2020 Spacer Spnl [id number] 4deg L Peek Post Lum Intbdy Fus [id number] Start: 12-30-2020 Connector Spnl C rss Lo Prof Adj Reline-O 5.5 X 45-65 Mm [id number] Start: 12-30-2020 Screw Spnl L55mm Od6mm 2s Polyax Reline O [id number] Start: 12-30-2020 Screw Spnl Dia5. 5mm Opn Tulip Deborah Reline [id number] Start: 12-30-2020 Jennifer Spnl Lordtc 5.5x80 Mm Ti Reline-O [id number] Start: 12-30-2020 CERVICAL FUSION POSTERIOR Nic BONILLA, Yamil Thacker 10/30/19 Unknown Neck FDA Start: 10-30-2019 CERVICAL FUSION POSTERIOR Nic BONILLA, Yamil Kedar 10/30/19 Unknown Neck FDA Start: 10-30-2019 CERVICAL FUSION POSTERIOR Nic BONILLA, Yamil Kedar 10/30/19 Unknown Neck FDA Start: 10-30-2019 CERVICAL FUSION POSTERIOR Nic BONILLA, Yamil Kedar 10/30/19 Unknown Neck FDA Start: 10-30-2019 CERVICAL FUSION POSTERIOR Nic BONILLA, Yamil Kedar 10/30/19 Unknown Neck FDA Start: 10-30-2019 CERVICAL FUSION POSTERIOR Nic BONILLA, Yamil Kedar 10/30/19 Unknown Neck FDA Start: 10-30-2019 CERVICAL FUSION POSTERIOR Nic BONILLA, Yamil Thacker 10/30/19 Unknown Neck FDA Start: 10-30-2019 Top Clsr Dia55 6 mm Std For Thorlum Sacroiliac Fix Sys - [id number] Start: 10-11-2023 Jennifer Spnl Crv 5.5 x75 Mm Prebent Ti Vitality - [id number] Start: 10-11-2023 Jennifer Spnl Crv 5.5 x85 Mm Prebent Ti Vitality - [id number] Start: 10-11-2023 Screw Spnl L55mm Dia6.5mm Polyax Thorlum Sacroiliac Vitality - [id number] Start: 10-11-2023 Graft Bne Sub 15 gm Grn Ca Compnd Ptty And Silicate Base Inj - [id number] Start: 10-11-2023 Goals Date Patient Goal Desired Activity /State Functional Status Date Assessment Result Facility 04-12-2023 Functional Status N/A [facility] Clinical Notes 12-30-2020 to 04-25-2025 Lora Power MD - 04/25/2025 10:00 AM EDT Note Date & Type Note Facility 04-25-2025 History of Presen t illness Narrative Images from the original note were not included. CHIEF COMPLAINT REASON FOR VISIT : Patient states she needs injections today. Consent form signed. She is having bilateral neck pain and bilateral back pain that is a 10/10. She states is having pain in her bilateral hands that is a 10/10. But some of the hand swelling has come down. Subjective Macie Cloud is a 49 y.o. female who presents for Injections of her lower back and bursas History of Present Illness The patient presents for evaluation of back pain. She reports experiencing significant pain in her back, which has severely impacted her mobility, preventing her from walking during her daughter's recent wedding. She has an upcoming appointment with a supervisor paint department on 06/03/2025 to discuss potential treatments for her back pain. She mentions that her spinal cord is open and is considering options such as a stimulator or pain pump. She was hospitalized for 6 days due to pneumonia, which affected her entire right lung and began to spread to the left. She was septic and spent 5 days in intensive care. An x-ray on 04/27/2025 and a follow-up x-ray 2 weeks later both showed pneumonia in the right lung. She is awaiting another x-ray but has not received a call in 2 days. She contacted her doctor this morning regarding the persistent pneumonia in her right lung. Additionally, she has an appointment with a belt measurer for a scope on 05/07/2025. SOCIAL HISTORY: Hobbies: Gardening Review of Systems Const: Denies appetite change, fever, chills. Allergy: Denies medication reaction. Ocular: Denies visual acuity change. ENT: Denies hearing change. Endoc: Denies weight loss. Resp: Denies dyspnoea, wheezing. Cardiac: Denies angina, palpitations. GI: Denies nausea, vomiting. Haem: Denies bleeding. : Denies incontinence. MSK: Denies arthralgias, joint oedema. Derm: Denies rash, hair loss. Neuro: Denies ataxia, tremor. Also see HPI for elements of ROS documented therein and for details of positive findings, which shall supersede the foregoing. Objective Blood pressure (!) 178/102, height 5' 7.5 , weight 122 lb. Physical Exam GENERAL EXAMINATION Appearance: in no acute distress, well developed, well nourished. Head: normocephalic, atraumatic. Eyes: pupils equal, round, reactive to light and accommodation. Ears: normal. Mouth: mucosa moist. Throat: clear. Neck: neck supple, full range of motion, no cervical lymphadenopathy. Skin: no suspicious lesions, warm and dry. Heart: no murmurs, regular rate and rhythm, S1, S2 normal. Lungs: clear to auscultation bilaterally. Abdomen: normal, bowel sounds present, soft, nontender, nondistended. Extremities: no clubbing, cyanosis, or edema. NEUROLOGICAL EXAMINATION Mental Status: The patient is alert and oriented to person, place, and time. Except as noted, thought content, form, and comprehension was normal. Phonation, articulation, resonance, and prosody are normal. Cranial Nerves: Pupils were 4.0 millimeters, equal, round, and reactive to light and accommodation, both directly and consensually. Visual jones were full by confrontation. There was no ptosis; extra-ocular movements were full; and there was no nystagmus. Funduscopic exam is normal. Masseters are of normal strength. Facial movement is normal. Hearing is grossly intact. There is no dysarthria. The gag reflex is equal bilaterally. Sternocleidomastoids and trapezii are of normal strength. The tongue protrudes in the midline. Motor: Muscle testing was performed in all four extremities, including at least support director, finger abductors, biceps, triceps, deltoid, toe flexors and extensors, tibialis anterior, triceps surae, quadriceps femoris, biceps femoris, and iliopsoases. Tone is normal. Muscle bulk is normal. Fasciculations are not seen . Pronator drift was not evident. Sensory: Sensation to touch, temperature, and vibration was normal in the arms, legs and face. Romberg is negative. Reflexes: Biceps, triceps, brachioradialis are 2/4 bilaterally. Patellar and Achilles reflexes are 2/4 bilaterally. Plantar responses were flexor bilaterally. Coordination: Dysmetria and dysdiadochokinesia are absent. Tremor is absent; dystonia is absent; chorea is absent. Gait And Station: Station and gait are normal. Apraxia and spasticity are not evident. Arm swing is normal. Toe, heel, and tandem walking are performed without difficulty. Musculoskeletal: Trigger-point tenderness was absent. There is no spasm of the trapezii or paraspinals. Results Imaging - X-ray of the right lung: Pneumonia in the right lung Trigger Injection After explaining the risks, complications, and benefits of the procedure, the patient leaned over exam table with arms to support self. Allergies were reviewed, the consent was signed. After palpating at the most tender part, then marking that area for injections a sterile technique and surface anesthetic were used. A 25 gauge 1 1/2 spinal needle was inserted. The patient received the trigger point injection in the lumbar paraspinal muscles at levels L5/S1 with a total of 3 cc Bupivacaine 0.5% and 1 cc Dexamethasone 4mg. A Band-Aid dressing was applied on the injection site. The patient tolerated the procedure well. The Procedure was done by Dr. Lora Power. Brachial Plexus injection After explaining the risks, complications, and benefits of the procedure, the patient was seated in the chair. Allergies were reviewed, the consent was signed. The bilateral region posterior to the clavicle is identified and the most tender area is marked for injection then cleaned using sterile technique, and surface anesthetic; a 30 gauge 1/2 spinal needle was advanced and the patient received 1 cc of Bupivacaine 0.5% and 1 cc Dexamethasone 4mg. The needle was removed. The patient tolerated the procedure well and without complications. A Band-Aid dressing was applied on the injection site. Assessment & Plan 1. Back pain; DDD Lumbar getting injections She reports significant pain in her back, which has been affecting her mobility. Injections were administered into the neck and low back, targeting the brachial and bursas. A prescription was sent to [facility]. She has an appointment with a supervisor paint department on 06/03/2025 to discuss further options, including a spinal cord stimulator or pain pump. This clinical note was created utilizing [employer] documentation system. All information has been thoroughly reviewed, corrected as necessary, and authenticated by the provider to ensure accuracy and completeness. On occasion, [employer] documentation system erroneously drops words or replaces a spoken word with a similar sounding word. Please notify with any questions or concerns regarding this clinical note. documented in this encounter [facility] 03-16-2025 Evaluation note Diagnosis Onset Date Resolution Bacteremia acute March 15 10:51pm Diarrhea acute March 15 10:51pm Leukopenia acute March 15 10:51pm Metabolic acidosis, NAG, bicarbonate losses acute March 152024 10:51pm Opioid use disorder acute 2024 10:51pm Pneumonia acute March 15 10:51pm Rectal bleeding acute March 10:51pm Sepsis acute March 15 10:51pm [facility] Work Phone: 1(985) 390-554208-02-2025 Evaluation note* Diagnosis Onset Date Resolution Status Admit Date Bacteremia acute March 15 10:51pm Diarrhea acute March 15 10:51pm Opioid use disorder acute 2024 10:51pm Pneumonia acute March 15 10:51pm Leukopenia resolved March 15 10:51pm Metabolic acidosis, NAG, bicarbonate losses resolved March 15 10:51pm Rectal bleeding resolved March 10:51pm Sepsis resolved March 15 10:51pm Abdominal pain acute April 16, 2025 12:55pm Black stools acute April 12:55pm Blood in stool acute April 16, 2025 12:55pm Diarrhea acute April 16, 2025 12:55pm Nausea acute April 16, 2025 12:55pm Weight loss acute April 12:55pm [facility] Work Phone: 1(604) 626-830805-13-2025 Telephone encounter Note* Telephone Encounter - Kylie Mar - 12/25/2024 3:01 PM EDT Pt has MRI on Tuesday and needs something called in so she can lay through it. [facility] Work Phone: 1(323) 421-440205-13-2025 Miscellaneous Notes* Telephone Encounter - Kylie Mar - 12/25/2024 3:01 PM EDT Pt has MRI on Tuesday and needs something called in so she can lay through it. documented in this encounterCaitlin Ville [id number] History of Present illness Narrative* Lora Power MD - 09/27/2024 3:40 PM EST Images from the original note were not included. CHIEF COMPLAINT REASON FOR VISIT: New patient consultation. HPI: Macie Cloud is a 49 y.o. female who presents for A new patient consultation self referred and previous HA patient. She states she has pain in her back. She states standing for 5 minutes or less shehas to sit down due to the pain. Patient states did have back surgery and she did good for a while.But then she had a lot of swelling and pain. She states.She states went to the ER and then was sentto [facility] then states it was not an infection [...] file. Depression: At risk (11/20/2022) Received from [facility] PHQ-2 PHQ-2 score: 4 REVIEW OF SYMPTOMS: [...] Oriented to person, place and time. Recent andremote memory are intact. Speech is normal. Language [...] reflexes: Sandro's absent. Ankle clonus absent. Coordination Gticjs-az-caoq, rapid alternating movements and fijc-ck-qwyb normal bilaterally without dysmetria. Gait Normal casual, [...] the distal lower extremities manifested predominantly as numbnessand paresthesia in her bilateral feet which have been progressive over the past 8 months, Possible etiologies would include a generalized process affecting large fibers such as peripheral neuropathy,lumbar radiculopathy, or lumbosacral plexopathy. I cannot exclude a small fiber neuropathy contributing to predominantly sensory symptoms in the lower extremities, I cannot exclude it medical condition or metabolic process contributing to peripheral nerve dysfunction including polyneuropathy. Diagnoses and all orders for this visit: Lumbar radiculopathy Status post lumbar spinal fusion EMG 2 Ouoazspoovd-WNO-N will order an electromyograph evaluation of the lower extremities to assessfor nerve damage such as lumbar radiculopathy, lumbar plexopathy, or peripheral neuropathy I will obtain an MRI of the lumbar spine to assess for a structural lesion including degenerative lumbar spine disease which may be contributing to the patient's symptoms. MR lumbar spine w and wo contrast; [facility] [place]herpetic neural[place] ([facility]/HCC) Start lidocaine (Lidoderm) 5 % patch; Apply 2 patches over 12 hours topically Daily Remove & discard patch within 12 hours or as directed by MD. Cervical myelopathy (CMS/HCC) EMG 2 Rhaxjexdjdy-HED-P will order an electromyograph evaluation of the upper extremities to assessfor nerve damage such as cervical radiculopathy, brachial plexopathy, or entrapment mononeuropathy I will order MR cervical spine w and wo contrast; [facility] Total time 30 minutes spent reviewing records, [...] by Lora Power MD documented in this encounterMissouri Delta Medical [id number] History of Present illness Narrative* Rio Ramirez NP - 05/22/2024 10:25 AM EDT HPI: Historian of HPI: patient Macie Cloud [...] infection and when to report to ER. Aleena in 24 hours. Call office if symptoms [...] rib x ray with chest. Possible non-displaced 5-6thrib fractures likely. Dx and tx discussed with [...] CT scanning is available. documented in this [facility]02-28-2024 History of Present illness Narrative* Mady Clay PA - 10/12/2023 7:09 AM EST 10/12/2023 7:09 AM Macie Cloud [id number] SUBJECTIVE: Uneventful PM per nursing, pt doing [...] F/U with Dr. Ding in 2 week. * Donya Varner RN - 10/11/2023 6:43 PM EST The patient arrived to the room from PACU; awake and alert and oriented to the bed mechanics, call light, safety and orders. * Joy Kaur - 10/11/2023 5:14 PM EST CLINICAL PHARMACY NOTE: MEDS TO BEDS Total # of Prescriptions Filled: 1 The following medications were delivered to the patient: Tizanidine 2mg Additional Documentation: Percocet to home pharm 10/10/2023 documented in [facility] Discharge instructions* Discharge Instructions* Mady Clay PA - 10/11/2023 10:04 AM EST No driving for two weeks after surgery. No lifting greater than 10 pounds for the first month. Keep dressing dry and in place until shower on Tuesday Remove dressing after shower on Tuesday Keep it Clean - Post-Operative Home instructions These instructions are to help you have the best possible recovery after your surgical procedure. [facility] is here to support you. If you have questions, call [phone] Tuesday through Tuesday from 7:30AM to 8:30PM to speak to a nurse. If you need to speak to someone outside of these hours, call your physician. Incision Do s and Don ts Do wash hands before and after dressing changes or when you have had any contact with your incision. Use hand operations analyst or antibacterial soap. Do keep your incision [...] your healthcare provider. These are needed to checkhow well you re healing. Your drain, stitches, [...] to your discharge paperwork for further instructions * Attachments The following attachments cannot be sent through Care Everywhere. * Lumbar Laminectomy: Post-op (Northern [place]) * Constipation (Northern [place]) * DVT (Deep Vein Thrombosis): General Info ([place]) * COPD: Exacerbation ([place]) * Smoking Cessation: Health Benefits: General Info (Northern Irish) * acetaminophen and oxycodone ([place]) * tizanidine (Northern Irish) documented in this [facility] Evaluation + Plan noteExtracted from: Title:NPV Author:Whit BONILLA, Star Perez Date [...] depression as well as having quit smoking. [facility]2023 Evaluation note* Encounter Date Diagnosis Assessment Notes Treatment Notes Treatment Clinical Notes Feb, Post laminectomy syndrome (ICD-10 - M96.1) [employer] Other 06-29-2023 NoteHNO ID: [id number] Author: Darlyn Kaufman RN Service: ? Author Type: Registered Nurse Type: Progress Notes Filed: 02/10/2023 9:31 AM Note Text: Patient referred to Blood Management for anemia evaluation/pre-surgical optimization. Current and complete lab data unavailable. Unable to complete evaluation.[facility]06-29-2023 History of Present illness Narrative* Darlyn Kaufman RN - 02/10/2023 9:31 AM EDT Patient referred to Blood Management for anemia evaluation/pre-surgical optimization. Current and complete lab data unavailable. Unable to complete evaluation. documented in this encounterC[facility]23 NoteHNO ID: [id number] Author: Too Hughes MD Service: ? Author [...] visit. Either the patient or their legal student services representative has been informed of the risks and benefits of -- and alternatives to -- treatment through a remote evaluation and consents to proceed with the evaluation remotely.[facility]04-08-2023 History of Present illness Narrative* Too [...] visit. Either the patient or their legal student services representative has been informed of the risks and benefits of -- and alternatives to -- treatment through a remote evaluation andconsents to proceed with the evaluation remotely. documented in this encounterC[facility]02-23-2023 NoteEducation Materials Orthopedics Chronic Back Pain [...] them backward. ? Do not sit or compress engineer one place for long periods of time. [...] prescription pain medicine, or muscle relaxants. Take ezbz-xni-ytfpeah and prescription medicines only as told by your health care provider. ? Ask your health care provider if the medicine prescribed to you: ? Requires you to avoid driving or using machinery. ? Can cause constipation. You may need to take these actions to prevent or treat constipation: ? Drink enough fluid to keep your urine pale yellow. ? Take jacd-owv-cpyatvy or prescription medicines. ? Eat foods that [...] to replace advice given (more content not included)...[facility] [id number] Miscellaneous Notes* Telephone Encounter - Karen Watkins RN - 10/07/2022 8:48 AM EST Neuro SPINE CARE COORDINATION SURGERY SCHEDULING Pt scheduled for 12/30/2022. This date is now an OR at [facility]. Due to this, pt will [...] Dr Hughes at 240pm [address] [place] ([place] Office Date): anytime Pre op Education: 02/08/2023 inperson at 3pm with Nigel Watkins RN Post op appts: 2 Week VV Post-op with Caroline Malone NP 6-8 week post op appointment with Saul on 04/19/23 at 1120pm. Please schedule XRAY prior to visit. Case message sent to surgery schedulers. Karen Watkins RN documented in this encounterCincinnati [facility]02-03-2023 Miscellaneous Notes* Telephone Encounter - Karen Watkins RN - 09/17/2022 12:35 PM EST Neuro SPINE CARE COORDINATION SURGERY SCHEDULING Per Dr Hughes OK to schedule pt for surgery. Patient accepts surgery date of 12/30/[address] Too Hughes at [facility]. Planned procedure: Revision L3-S1 and ext to L2 lumbar fusion. Length of Surgery:5 hrws Expected Length of Hospital Stay:3-4 Patient's Home Address: [address] [place], [place] [id number] Medications reviewed : Yes. Meds to be [...] , and nicotine. Education Sent Via Mail/ [employer]: [employer] PACC Questionnaire Completed: Yes Qualify TREK for Surgical Success?: Yes Patient placed on cancellation list: No Pre op appts: [place]: anytime PACC: [facility] 12/07/22 IC: 12/07/22 at 1140 am [...] [13.4] Karen Watkins RN documented in this encounterCincinnati [facility]rin[facility]02-02-2023 Procedure [facility]01-30-2023 NoteHNO ID: [id number] Author: RT Vicente(R) Service: Radiology Author Type: [...] BY: RT Vicente(R) September 13, 2022 3:36 [facility]01-30-2023 History of Present illness Narrative* RT Viecnte(R) - 09/13/2022 4:00 PM EST Radiology Service [...] 13, 2022 3:36 PM documented in this encounterCincinnati Shrin[facility]01-30-2023 NoteHNO ID: [id number] Author: Too Hughes MD Service: ? Author Type: Physician Type: Progress Notes Filed: 09/13/2022 2:50 PM Note Text: SPINE SURGERY OUTPATIENT CONSULT This is an in-person visit. SERVICE DATE: 09/13/2022 PCP: Cristiano Graham Sr, MD REFERRING PROVIDER: Lei Martinez [id number] [facility] [id number] Consult requested for an opinion regarding the [...] PROBLEM LIST Copd (Chronic Obstructive Pulmonary Disease) ([facility]) Current Smoker Neck Pain S/P Cervical Spinal Fusion Anxiety and Depression Iron Deficiency Anemia B12 Deficiency PAST MEDICAL HISTORY Diagnosis Date Anemia 10/[address] Cristiano Graham Anxiety and depression COPD (chronic obstructive pulmonary disease) ([facility]) Current smoker Neck pain S/P cervical spinal [...] Modified ROBERT Score 11 (more content not included)...[facility]01-30-2023 History of Present illness Narrative* Too Hughes MD - 09/13/2022 1:21 PM EST Images from the original note were not included. SPINE SURGERY OUTPATIENT CONSULT This is an in-person visit. SERVICE DATE: 09/13/2022 PCP: Cristiano Graham Sr, MD REFERRING PROVIDER: Lei Martinez [id number] [facility] [id number] Consult requested for an opinion regarding the [...] PROBLEM LIST Copd (Chronic Obstructive Pulmonary Disease) ([facility]) Current Smoker Neck Pain S/P Cervical Spinal Fusion Anxiety and Depression Iron Deficiency Anemia B12 Deficiency PAST MEDICAL HISTORY Diagnosis Date Anemia 10/[address] Cristiano Graham Anxiety and depression COPD (chronic obstructive pulmonary disease) ([facility]) Current smoker Neck pain S/P cervical spinal [...] with more than 50% of the total kbep-ly-ucfl time of the visit in counseling / coordination of care. SIGNATURE: Too Hughes MD PATIENT NAME: Macie Cloud DATE: September 13, 2022 TIME: 1:22 PM PAGER: documented in this encounterCincinnati [facility]rin[facility]12-21-2022 Miscellaneous Notes* Telephone Encounter - Lei [...] Martinez PA-C Spine Surgery documented in this encounterCincinnati [facility]rin[facility]12-19-2022 Miscellaneous Notes* Telephone Encounter - Doirs Turner - 08/02/2022 9:57 AM EST Patient is calling in about info below * Telephone Encounter - Nicolasa Wolff Temporary Receptionist - 07/30/2022 11:11 AM EST pt had 10:30 VV today with provider. Pt has trouble connecting. Pt requesting a phone call. Call back: [phone] documented in this encounterCincinnati [facility]riners Hospital12-14-2022 Miscellaneous Notes* Telephone Encounter - Ashly Menjivar RN - 07/28/2022 9:13 AM EST Neuro SPINE CARE COORDINATION QUICK NOTE Patient scheduled for virtual visit with CHIP Fine for 07/30/2022 at 10:30 am. Ashly Menjivar RN Sheeting Puller, Spine Health * Telephone Encounter - Doris Turner - 07/21/2022 2:06 PM EST Received the following record(s) via fax. -MRI L spine wo, Xray, MRI L spine wo/w(report and CD) Date 06/25/22 Record(s) scanned into pt's chart. Doris Turner documented in this encounterCincinnati [facility]rin[facility] Hospital12-08-2022 Miscellaneous Notes* Telephone Encounter - Adolph Blanco RN - 07/22/2022 11:12 AM EST Noted. Forwarded to HARRY via other Encounter. Adolph Blanco, FATUMA * Telephone Encounter - Doris Turner - 07/21/2022 9:32 AM EST Received the following record(s) via fax. -Electromyographic report Date 08/26/21 Record(s) scanned into pt's chart. Doris Turner documented in this encounterCincinnati [facility]rin[facility]05-20-2022 History of Present illness Narrative* Lei [...] Martinez PA-C Spine Surgery documented in this encounterCincinnati Shriners Hospital04-14-2022 Evaluation note* Encounter Date Diagnosis Assessment [...] note writ ten by Yuri Prince MA, Fish Agent. Edited and approved by Dr. Vick Maxwell [...] negative findings were considered in medical decision-making. [employer] Other 04-06-2022 Evaluation note* Encounter Date Diagnosis [...] This further complicates the differential diagnostic picture. [employer] Other 05-19-2021 NoteEXAMINATION: XR LUMBAR SPINE (2-3 [...] the back as is subadjacent soft tissue emphysema.[employer] Work Phone: 1(186) 632-759705-19-2021 NoteEXAMINATION: XR LUMBAR SPINE (2-3 VIEWS) CLINICAL [...] Signed by: Lon Moura DO 12/31/20 Final resultGrand River Health05-19-2021 History of Present illness Narrative* Xi Negrete, PT - 12/31/2020 11:21 AM EDT Physical Therapy Med Surg Initial Assessment Facility/Department: [address] NEURO Room: N227/N227-01 NAME: Macie Cloud [...] Headache 04/29/2020 Low back pain 04/29/2020 Other director long term care (current) drug therapy 04/29/2020 Other chronic pain 04/29/2020 Chest pain, unspecified 04/29/2020 Essential hypertension 04/25/2020 Current smoker 06/30/2017 COPD (chronic obstructive pulmonary disease) ([facility]) 06/30/2017 Past Medical History: Diagnosis Date Anemia Anxiety Chronic back pain Chronic headaches COPD (chronic obstructive pulmonary disease) ([facility]) Depression Emphysema (subcutaneous) (surgical) resulting from a procedure Emphysema of lung ([facility]) Endometriosis Hypertension Restless leg syndrome Substance abuse ([facility]) Past Surgical History: Procedure Laterality Date ANKLE SURGERY Left APPENDECTOMY CERVICAL SPINE SURGERY 2019 SECTION ENDOMETRIAL ABLATION HYSTERECTOMY, VAGINAL LUMBAR FUSION N/A 12/30/2020 REMOVAL HARDWARE L4-5, L3-4 P.L.I.F (POSTERIOR LUMBAR INTERBODY FUSION), L3-4-5 PEDICLE SCREW POSTEROLATERAL FUSION performed by Bib Alvarez MD at [facility] OR SPINE SURGERY Chart Reviewed: Yes Patient [...] Independent (no AD) Transfer Assistance: Independent Active Home Builder: Yes OBJECTIVE: Vision: Impaired Vision Exceptions: Wears [...] place Goals: Patient goals : go home 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 intermodal 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 regional intermodal 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 senior living (current) drug therapy 04/29/2020 Other chronic pain 04/29/2020 Chest pain, unspecified 04/29/2020 Essential hypertension 04/25/2020 Current smoker 06/30/2017 COPD (chronic obstructive pulmonary disease) (HCC) 06/30/2017 Past Medical History: Diagnosis Date Anemia Anxiety Chronic back pain Chronic headaches COPD (chronic obstructive pulmonary disease) ([facility]) Depression Emphysema (subcutaneous) (surgical) resulting from a procedure Emphysema of lung ([facility]) Endometriosis Hypertension Restless leg syndrome Substance abuse ([facility]) Past Surgical History: Procedure Laterality Date ANKLE SURGERY Left APPENDECTOMY CERVICAL SPINE SURGERY 2019 SECTION ENDOMETRIAL ABLATION HYSTERECTOMY, VAGINAL LUMBAR FUSION N/A 12/30/2020 REMOVAL HARDWARE L4-5, L3-4 P.L.I.F (POSTERIOR LUMBAR INTERBODY FUSION), L3-4-5 PEDICLE SCREW POSTEROLATERAL FUSION performed by Bib Alvarez MD at [facility] OR SPINE SURGERY Restrictions Restrictions/Precautions: Fall Risk [...] Independent (no AD) Transfer Assistance: Independent Active Home Builder: Yes OBJECTIVE: Orientation Status: Orientation Overall Orientation [...] WFL Sensation Status: Sensation Overall Sensation Status: [facility] Vision and Hearing Status: Vision Vision: Impaired [...] home with family support who presents to [facility] with the above deficits which impact her [...] 17 Eval: 17 minutes Electronically signed by: Anita Corona OTR/Angelina, OTR/L 12/31/2020, 10:50 AM documented in this encounterAvita Health SystemUpkeep Charlie Phone: 1(107) 647-586305-18-2021 NoteFLUORO FOR SURGICAL PROCEDURES : 12/30/2020 8:47 AM CLINICAL HISTORY: R52 Pain ICD10. Lumbar spine fusion. COMPARISON: None available. Intraoperative fluoroscopy was provided for Dr. Alvarez 's procedure.A total of 11.22 mGy of fluoroscopy was used, with 4 fluoroscopic stills saved. No diagnostic images were obtained. Please see Dr. Alvarez's surgical notes for complete details.[employer] Phone: 1(749) 215-925505-18-2021 NoteFLUORO FOR SURGICAL PROCEDURES : 12/30/2020 8:47 [...] Signed by: Lon Moura DO 12/30/20 Final resultGrand River HealthEvaluation note* Diagnosis Post-op pain- Primary Other acute postoperative pain Lumbar spondylosis Lumbosacral spondylosis without myelopathy documented in this encounter [employer] Work Phone: evaluation note* Diagnosis Pain Generalized pain documented in this encounter [employer] Phone: evalumldta note* Diagnosis Neck pain, chronic- Primary Cervicalgia Chronic bilateral low back pain with right-sided sciatica documented in this encounter [facility] noteNo assessment information availableMarietta Osteopathic Clinic Work Phone: Evaluation noteNo InformationNortShriners Hospitals for [facility] - [facility] [employer] Other Evaluation note* Diagnosis Spinal stenosis of cervical region- Primary Spinal stenosis in cervical region Pseudarthrosis following spinal fusion Arthrodesis status Lumbar radiculopathy Thoracic or lumbosacral neuritis or radiculitis, unspecified 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 documented in this encounter [facility] note* Diagnosis Spinal stenosis of cervical region Spinal stenosis in cervical region documented in this encounter [facility] note* Diagnosis Onset Date Resolution Status Diarrhea acute Dyspepsia acute Rectal bleeding acute [facility] Work Phone: Evaluation note* Diagnosis Current smoker- Primary Tobacco use disorder Anemia, unspecified type Personal history of other endocrine, nutritional and metabolic disease 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 Chronic pain syndrome Pseudarthrosis following spinal fusion Arthrodesis status documented in this encounter [facility] note* Diagnosis Current smoker- Primary Tobacco use disorder Lumbar radiculopathy Thoracic or lumbosacral neuritis or radiculitis, unspecified 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 Arthrodesis status documented in this encounter [facility] note* Diagnosis Cervical myelopathy (HCC)- Primary Cervical spondylosis with myelopathy Cervical radiculopathy Brachial neuritis or radiculitis nos Lumbar radiculopathy Thoracic or lumbosacral neuritis or radiculitis, unspecified 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 Arthrodesis status documented in this encounter [facility] note* Diagnosis Lumbar disc herniation- Primary Displacement of lumbar intervertebral disc without myelopathy documented in this encounter [facility] MCGINNISPEACEHEALTH SOUTHWEST MEDICAL CENTERInCights [employer] [facility] note* Diagnosis Lumbar radiculopathy Thoracic or lumbosacral neuritis or radiculitis, unspecified documented in this encounter [facility]* Diagnosis Chronic cough- Primary Cough Rib pain on left side Inspiratory pain Closed fracture of multiple ribs of left side, initial encounter Chronic cough Cough Rib pain on left side Inspiratory pain documented in this encounter [facility] HealthcareEvaluation note* Diagnosis Lumbar radiculopathy- Primary Thoracic or lumbosacral neuritis or radiculitis, unspecified Status post lumbar spinal fusion Arthrodesis status documented in this encounter [facility] HealthcareEvaluation note* Diagnosis Lumbar radiculopathy- Primary Thoracic or lumbosacral neuritis or radiculitis, unspecified PHN (postherpetic neuralgia) ([facility]) Herpes zoster with other nervous system complications Status post lumbar spinal fusion Arthrodesis status Cervical myelopathy ([facility]/HCC) Cervical spondylosis with myelopathy documented in this encounter [facility] HealthcareEvaluation note* Diagnosis Claustrophobia (CMS/HCC) Other isolated or specific phobias documented in this encounter [facility] HealthcareEvaluation note* Diagnosis Claustrophobia (CMS/HCC)- Primary Other isolated or specific phobias documented in this encounter [facility] HealthcareEvaluation note* Diagnosis Other nerve root and plexus disorders- Primary Status post lumbar spinal fusion Arthrodesis status Myalgia Unspecified myalgia and myositis documented in this encounter [facility] HealthcareHistory general Narrative - Reported* Type Description [...] Procedure:tubal ligation;Diseas e: Surgical History Cervical disc 2016 Surgical History Procedure:open reduction nasal bone fracture;Disease: 2001 Surgical History Procedure:septoplasty;Disease: 2001 Hospitalization History see above [employer] Other History general Narrative - Reported* Type [...] Procedure:tubal ligation;Diseas e: Surgical History Cervical disc 2016 Surgical History Procedure:open reduction nasal bone fracture;Disease: 2001 Surgical History Procedure:septoplasty;Disease: 2001 Hospitalization History see above [employer] Other Hospital course Narrative No data available for this section [facility] Discharge instructions* Instructions* Luma Siuaubrie GailALMA calero - 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 The 24- hour phone is [phone]) If you are unable to contact [...] through Care Everywhere. * Spine: Anatomy Sketch (Northern Irish) * Lumbar Spinal Fusion: Post-op (Northern Irish) * oxycodone (Northern Irish) * fentanyl transdermal (device) (Northern Irish) * docusate and senna (Northern Irish) * cephalexin (Northern Irish) documented in this [facility] [employer] Work Phone: Hospital Discharge instructions Additional Instructions [...] if you have any problems. -Office number [phone] Work Phone: Hospital Discharge instructions No data available for this section [facility] instructions[facility]ulatory Orders* DME Home Medical Equipment Time Frame: 1 Day, Location: Determined By Patient Additional Instructions Please see your PCP in 3-5days Please consider stopping smoking as this is affecting your lungs and general health Take your antibiotics for 2 weeks I know that you are working with your PCP to schedule an appointment with the GI doctor in [place]. I advise you to do that as soon as possible. Wear supplemental oxygen at 2L with rest & 2L with exertionMarietta Osteopathic Clinic Work Phone: Progress note No data available for this section [facility] (narrative)* Diagnostic Procedure Only (Routine) - Closed Specialty Diagnoses / Procedures Referred By Contac t Referred To Contact XR IMAGING Diagnoses Spinal stenosis of cervical region Procedures XR SCOLIOSIS PA STAND/LAT 2V RADEX ENTIR THRC LMBR CRV SAC SPI W/SKULL 2/3 VW Too Hughes MD [address] [place] [address] Xr Imaging Referral ID Status Reason Start Date Expiration Date V isits Requested Visits Authorized [id number] Closed Auto-Generate d Referral 09/13/2022 10/13/2023 1 1 [facility] for [facility] Referral [facility] [employer] Other Assessments Diagnosis Pre-op examination Preoperative examination, unspecified Summary Purpose Family History Relationship Condition Age at Onset Recorded Date/T [...] Unknown mother Unknown Osteoarthritis Unknown Advance Directives Latest Code Status on File Code Status [...] Fluoro For Surgical Procedures Bib Alvarez MD [address] [address] Reason lumbar pain radiatin g into right leg, cervical pain radiating into left arm hx of multiple cervical and lumbar surgeries Diagnosis 1 Other spondylosis wi th radiculopathy, lumbar region (M47.26) Diagnosis 2 Cervical spondylosis with radiculopathy (M47.22) Referral Organization [facility] Ortho pedics Referring Provider First Name Vick Referring Provider Last Name Alissa Referring Provider Specialty Pain Medici ne Referred Organization [facility] Referred Address [address] [place] [place], [place],[address] Referred Provider Specialty Neurosurgery Referral Priority Routine General Notes PrinceYuri 11/13 04:00:02 PM > please refer the patient to spine center for further treatment Specialty Diagnoses / Procedures Referred By Contac t Referred To Contact MR IMAGING Diagnoses Spinal stenosis of cervical region Procedures MRI CERVICAL SPINE WO IVCON MRI SPINAL CANAL CERVICAL W/O CONTRAST MATRL Too Hughes MD [address] [place] [address] Mr Imaging Referral ID Status Reason Start Date Expiration Date Visits Requested Visits Authorized [id number] Pending Review Auto-Generat ed Referral 09/13/2022 10/13/2023 1 1 Specialty Diagnoses / Procedures Referred By Contac t Referred To Contact XR IMAGING Diagnoses Spinal stenosis of cervical region Procedures XR SCOLIOSIS PA STAND/LAT 2V RADEX ENTIR THRC LMBR CRV SAC SPI W/SKULL 2/3 VW Too Hughes MD [address] [place] [address] Xr Imaging Referral ID Status Reason Start Date Expiration Date V isits Requested Visits Authorized [id number] Closed Auto-Generate d Referral 09/13/2022 10/13/2023 1 1 Reason evaluate and treat f or consideration of Dorsal Column Stimulator Diagnosis 1 Spondylolisthesis of lumbar region (M43.16) Referral Organization [facility] urosurgery Referring Provider First Name Sobeida Referring Provider Last Name Chelo Referring Provider Specialty Neurologica l Surgery Referred Organization [facility] Referred Provider Luan Garcia Referred Address [address] [place], [place],[address] Referred Provider Specialty Pain Medicin e Referral Priority Routine Specialty Diagnoses / Procedures Referred By Jorgito valle Referred To Contact Radiology Diagnoses Lumbar radiculopathy Procedures MRI LUMBAR SPINE WO CONTRAST Mady Clay, [place] [address] [place] [address] Referral ID Status Reason Start Date Expiration Date Visits Re quested Visits Authorized [id number] Closed 05/04/2024 07/03/2024 1 1 Chief Complaint [...] urgent care September 13, 2024 3 :16pm Chief Complaint Admit Date M54.16 M47.816 M48.062 December 29, 2024 10 :39am Pneumonia, sepsis, resp failure March 152024 10:51pm Reason for Visit Admit Date Bacteremia March 15, 2025 10: 51pm Diarrhea March 15, 2025 10: 51pm Leukopenia March 15, 2025 10: 51pm Metabolic acidosis, NAG, bicarbonate los ses March 15, 2025 10:51pm Opioid use disorder March 15, 2025 10: 51pm Pneumonia March 15, 2025 10: 51pm Rectal bleeding March 15, 2025 10: 51pm Sepsis March 15, 2025 10: 51pm Chief Complaint Admit Date Pneumonia, sepsis, resp failure March 152024 10:51pm blood in stool/wgt loss April 16 12:55pm Reason for Visit Admit Date Bacteremia March 15, 2025 10: 51pm Diarrhea March 15, 2025 10: 51pm Opioid use disorder March 15, 2025 10: 51pm Pneumonia March 15, 2025 10: 51pm Leukopenia March 15, 2025 10: 51pm Metabolic acidosis, NAG, bicarbonate los ses March 15, 2025 10:51pm Rectal bleeding March 15, 2025 10: 51pm Sepsis March 15, 2025 10: 51pm Abdominal pain April 16, 2025 12:55pm Black stools April 16, 2025 12:55pm Blood in stool April 16, 2025 12:55pm Diarrhea April 16, 2025 12:55pm Nausea April 16, 2025 12:55pm Weight loss April 16, 2025 12:55pm Additional Source Comments INFORMATION SOURCE (unrecogn ized section and content) DATE CREATED AUTHOR 12/23/2020 [facility] DATE CREATED AUTHOR AUTHOR'S ORGANIZ ATION 06/16/2021 [facility] DATE CREATED AUTHOR AUTHOR'S ORGANIZ ATION 04/16/2022 [facility] dical Specialist DATE CREATED AUTHOR AUTHOR'S ORGANIZ ATION 10/02/2022 [facility] DATE CREATED AUTHOR AUTHOR'S ORGANIZ ATION 10/15/2022 [facility] DATE CREATED AUTHOR AUTHOR'S ORGANIZ ATION 02/11/2023 [facility] DATE CREATED AUTHOR AUTHOR'S ORGANIZ ATION 06/07/2023 [facility] DATE CREATED AUTHOR AUTHOR'S ORGANIZ ATION 09/30/2023 [facility] DATE CREATED AUTHOR AUTHOR'S ORGANIZ ATION 04/25/2025 [facility] DATE CREATED AUTHOR AUTHOR'S ORGANIZ ATION 05/17/2025 [facility] EPIC DATE CREATED AUTHOR AUTHOR'S ORGANIZ ATION 05/17/2025 [facility] Reason for Visit (unrecogniz ed section and content) Status Reason Specialty Diagnoses / Procedures Re ferred By Contact Referred To Contact Diagnoses Lumbar disc herniation PSEUDOARTHROSIS DISC HERNIATION, RADICULOPATHY, SPONDYLOSIS Procedures UT LUMB SP FUSN,POST INTERBDY,EA ADDNL UT ARTHDSIS POST/POSTEROLATRL/POSTINT ERBODY LUMBAR POSTERIOR SEGMENTAL INSTRUMENTATION 3-6 VRT SEG UT INSJ BIOMCHN DEV INTERVERTEBRAL DSC SPC W/ARTHRD AUTOGRAFT SPINE SURGERY LOCAL FROM SAME INCISION UT ALLOGRAFT FOR SPINE SURGERY ONLY STRUCTURAL L3-4 P.L.I.F (POSTERIOR LUMBAR INTERBODY FUSION) L4-5 PEDICLE SCREW/ POSTEROLATERAL FUSION/ 2.5 HRS/ 1 C-ARM/ NERIS TABLE/ S.S.E.P/ CELL SAVERS/ NUVASIVE, PAT AT [facility], 1ST CASE Bib Alvarez MD [address] [place] [address] [facility] Reason Comments New Patient cervical and lumbar [...] SPI W/SKULL 2/3 VW Too Hughes MD [address] [place] [address] Xr Imaging Referral ID Status Reason Start Date Expiration Date V isits Requested Visits Authorized [id number] Closed Auto-Generate d Referral 09/13/2022 10/13/2023 1 1 Reason Comments Schedule Surgery Care Coordination Reason Comments Surgery recsheduling Care Coordination Reason Comments Established Patient Reason Comments Blood Management Specialty Diagnoses / Procedures Referred By Contac t Referred To Contact Diagnoses Spinal stenosis of lumbar region, unspecified whether neurogenic claudication present Spinal stenosis of lumbar region, unspecified whether neurogenic claudication present [M48.061] Procedures UT REMOVAL POSTERIOR SEGMENTAL INSTRUMENTATION UT ARTHRODESIS COMBINED TQ 1NTRSPC LUMBAR UT POSTERIOR NON-SEGMENTAL INSTRUMENTATION UT AUTOGRAFT SPINE SURGERY LOCAL FROM SAME INCISION UT ALLOGRAFT FOR SPINE SURGERY ONLY MORSELIZED UT GIBBONS FACETEC/FORAMOT DRG ARTHRD LUMBAR 1 VRT SGM REMOVAL OF HARDWARE WITH RE-DO L2-3 LAMINECTOMY AND EXTENSTION OF FUSION Prem Ding MD [address] [place] [address] [facility] [address] [place] [address] Referral ID Status Reason Start Date Expiration Date Visits Re quested Visits Authorized [id number] 1 1 Specialty Diagnoses / Procedures Referred By Contac t Referred To Contact Radiology Diagnoses Lumbar radiculopathy Procedures MRI LUMBAR SPINE WO CONTRAST Mady Clay, [place] [address] [place] [address] Referral ID Status Reason Start Date Expiration Date Visits Re quested Visits Authorized [id number] Closed 05/04/2024 07/03/2024 1 1 Specialty Diagnoses / Procedures Referred By Contac t Referred To Contact Physical Therapy Diagnoses Spinal stenosis, lumbar region with neurogenic claudication Procedures UT PHYSICAL THERAPY EVALUATION LOW COMPLEX 20 MINS Prem Ding MD [address] [place] [address] Zoraida Bianchi, PT [address] [facility] [address] [place] [address] Referral ID Status Reason Start Date Expiration Date Visits Requested Visits Authorized [id number] Authorized Consult and Treat 03/20/2024 04/20/2024 12 12 Reason Onset Date Comments Med Refill 12/12/2024 Reason Comments Injections Ordered Prescriptions (unrec ognized section and content) [...] Sig Dispensed Refills Start Date End Da tiZANidine (ZANAFLEX) 2 MG tablet Take 1 [...] Ale Sutton RN - Reason: Patient/family refused) 816 [...] Ale Sutton RN - Reason: Patient/family refused) 08 (Given - Provider: Fabiola Nayak RN)2099 (Due) cariprazine hcl (VRAYLAR) capsule 4.5 mg 4.5 mg, Oral, DAILY, First dose on Tue12/31/20 at 0900, Do not crush or break. 0853 (Given - Provider: Ale Sutton RN) 0816 (Given - Provider: Fabiola Nayak, FATUMA) ceFAZolin (ANCEF) 2000 mg in dextrose 3 % 50 mL IVPB (duplex) (COMPLETED) 2,000 mg, Intravenous, GENERAL ASSEMBLER TO O.R., 1 dose, On Tue12/30/20 at 0800, Pre-op (day of surgery) 0845 (Given - Provider: Sonia Chisholm APRN - EDUCATIONAL ADMINISTRATOR - Comment: IVPB slow) ceFAZolin (ANCEF) 2000 [...] Ángel Moeller RN)0231 (Stopped - Provider: Miguel Ánegl Moelelr RN)0853 (New Bag - Provider: Ale Sutton [...] Sierra LPN)1151 (Given - Provider: Fabiola Nayak, FATUMA)1900 (Due - Provider: Usama May [facility]) cyanocobalamin injection 1,000 mcg 1,000 mcg, Intramuscular, [...] RN) 0853 (Given - Provider: Ale Sutton RN)2046 (Given - Provider: Ale Sutton RN) 0816 (Given - Provider: Fabiola Nayak RN)2099 (Due) gentamicin (GARAMYCIN) IVPB 80 mg (COMPLETED) 80 mg, Intravenous, GENERAL ASSEMBLER TO O.R., 1 dose, On Tue12/30/20 at [...] Reason: Other - Comment: Patient received PRN flush)2106 (Given - Provider: Ale Sutton RN) 0817 [...] Sutton RN) 1115 (Stopped - Provider: Fabiola Nayak RN) PRN Medication Order 12/30/2020 12/31/2020 01/01/2021 0.9 [...] hour of each other unless specifically ordered. 180 (Given - Provider: Ale Sutton RN)2153 (Given [...] Fabiola Nayak RN)1242 (Given - Provider: Fabiola Nayak, FATUMA) rOPINIRole (REQUIP) tablet 1 mg 1 [...] override 0810 (New Bag - Provider: Kiana Canas RN) Linked Groups Order Group 1: amLODIPine [...] 2147 (Given - Provider: Lizzy Kwok RN) 2100 (Due) ceFAZolin (ANCEF) 2000 mg in 0.9% [...] Surgical Prophylaxis, STAT 1120 (Given - Provider: ALMA Valadez CRNA)1506 (Given - Provider: ALMA Valadez CRNA) famotidine (PEPCID) 20 mg in sodium chloride [...] RN) 0555 (New Bag - Provider: Lizzy Kwok, FATUMA)0846 (Stopped - Provider: Eve Solis, FATUMA) lactated ringers IV soln infusion (CANCELED) IntraVENous, at 125 mL/hr, CONTINUOUS, Starting on Tue10/11/23 at 1000, Pre-op (day of surgery) 0959 (New Bag - Provider: Kamla Manley RN)1115 (NoRateChange - Provider: ALMA Valadez EDUCATIONAL ADMINISTRATOR)1509 (Anesthesia Volume Adjustment - Provider: ALMA Valadez CRNA)2100 (Stopped - Provider: Lizzy Kwok RN) PRN [...] - Provider: Serina Schmidt RN) lidocaine-EPINEPHrine 1 %-1:102247 injection (CANCELED) PRN, Starting on Tue10/11/23 at 1148, Until Tue10/11/23 at 1539, Intra-op 1148 (Given - Provider: Prem Ding MD) morphine (PF) injection 2 mg(Linked Group 1) 2 mg, IntraVENous, EVERY 2 HOURS PRN, Starting on Tue10/11/23 at 181, Until Discontinued, Pain Moderate (4-6), If oral and IV narcotics ordered, use oral first and only use IV if oral is ineffective or cannot take oral. Do Not give oral and IV within 1 hour of each other unless specifically ordered., Post-op 2108 (Given - Provider: Lizzy Kwok RN) 031 (See Alternative - Provider: Lizzy Kwok RN)0846 (See Alternative - Provider: Eve Solis RN) morphine sulfate (PF) injection 4 mg(Linked Group 1) 4 mg, IntraVENous, EVERY 2 HOURS PRN, Starting on Tue10/11/23 at 1816, Until Discontinued, Pain Severe (7-10), If oral and IV narcotics ordered, use oral first and only use IV if oral is ineffective or cannot take oral. Do Not give oral and IV within 1 hour of each other unless specifically ordered., Post-op 2108 (See Alternative - Provider: Lizzy Kwok RN) 312 (Given - Provider: Lizzy Kwok RN)0846 (Given - Provider: Eve Solis RN) ondansetron (ZOFRAN) injection 4 mg(Linked Group 2) 4 mg, IntraVENous, EVERY 6 HOURS PRN, Starting on Tue10/11/23 at 181, Until Discontinued, Nausea, Vomiting, Administer if oral route cannot be used., Post-op ondansetron (ZOFRAN-ODT) disintegrating tablet 4 mg(Linked Group 2) 4 mg, Oral, EVERY 8 HOURS PRN, Starting on Tue10/11/23 at 181, Until Discontinued, Nausea, Vomiting, Post-op oxyCODONE-acetaminophen (PERCOCET) 5-325 MG per tablet 1 tablet 1 tablet, Oral, EVERY 4 HOURS PRN, Starting on Tue10/11/23 at 1816, Until Discontinued, Pain Moderate (4-6), Maximum dose [...] from all sources in 24 hours., Post-op 1918 (Given - Provider: Lizzy Kwok, FATUMA) 0013 (Given - Provider: Lizzy Kwok, RN)1108 (Given - Provider: Eve Solis RN) rOPINIRole (REQUIP) tablet 1 mg 1 [...] Tue10/11/23 at 1817, Until Discontinued, Muscle spasms 2223 (Given - Provider: Lizzy Kwok RN) Linked Groups Order Group 1: morphine (PF) injection 2 mgJump to med 2 mg, IntraVENous, EVERY 2 HOURS PRN, Starting on Tue10/11/23 at 1816, Until Discontinued, Pain Moderate (4-6)
If oral and IV narcotics ordered, use oral first and only use IV if oral is ineffective or cannot take oral. Do Not give oral and IV within 1 hour of each other unless specifically ordered.
Post-op Or morphine sulfate (PF) injection 4 mgJump to med 4 mg, IntraVENous, EVERY 2 HOURS PRN, Starting on Tue10/11/23 at 1816, Until Discontinued, Pain Severe (7-10)
If oral and IV narcotics ordered, use oral first and only use IV if oral is ineffective or cannot take oral. Do Not give oral and IV within 1 hour of each other unless specifically ordered.
Post-op Group 2: ondansetron (ZOFRAN-ODT) disintegrating tablet 4 mgJump to med 4 mg, Oral, EVERY 8 HOURS PRN, Starting on Tue10/11/23 at 1816, Until Discontinued, Nausea, Vomiting, Post-op Or ondansetron (ZOFRAN) injection 4 mgJump to med 4 mg, IntraVENous, EVERY 6 HOURS PRN, Starting on Tue10/11/23 at 1816, Until Discontinued, Nausea, Vomiting
Administer if oral route cannot be used.
Post-op Source Comments (unrecognize d section and content) In the event this informatio n is protected by the Federal Confidentiality of Alcohol and Drug Abuse Patient Records regulations: The Federal rules restrict any use of the information to criminally investigate or prosecute any alcohol or drug abuse patient.[facility] the event this information is protected by the Federal Confidentiality of Alcohol and Drug Abuse Patient Records regulations: The Federal rules restrict any use of the information to criminally investigate or prosecute any alcohol or drug abuse patient.[facility] Hospital[facility] the event this information is protected by the Federal Confidentiality of Alcohol and Drug Abuse Patient Records regulations: The Federal rules restrict any use of the information to criminally investigate or prosecute any alcohol or drug abuse patient.[facility] HospitalIn the event this information is protected by the Federal Confidentiality of Alcohol and Drug Abuse Patient Records regulations: The Federal rules restrict any use of the information to criminally investigate or prosecute any alcohol or drug abuse patient.[facility] HospitalIn the event this information is protected by the Federal Confidentiality of Alcohol and Drug Abuse Patient Records regulations: The Federal rules restrict any use of the information to criminally investigate or prosecute any alcohol or drug abuse patient.[facility] HospitalIn the event this information is protected by the Federal Confidentiality of Alcohol and Drug Abuse Patient Records regulations: The Federal rules restrict any use of the information to criminally investigate or prosecute any alcohol or drug abuse patient.[facility] HospitalIn the event this information is protected by the Federal Confidentiality of Alcohol and Drug Abuse Patient Records regulations: The Federal rules restrict any use of the information to criminally investigate or prosecute any alcohol or drug abuse patient.[facility] HospitalIn the event this information is protected by the Federal Confidentiality of Alcohol and Drug Abuse Patient Records regulations: The Federal rules restrict any use of the information to criminally investigate or prosecute any alcohol or drug abuse patient.[facility] Hospital[facility] the event this information is protected by the Federal Confidentiality of Alcohol and Drug Abuse Patient Records regulations: The Federal rules restrict any use of the information to criminally investigate or prosecute any alcohol or drug abuse patient.[facility] Hospital[facility] the event this information is protected by the Federal Confidentiality of Alcohol and Drug Abuse Patient Records regulations: The Federal rules restrict any use of the information to criminally investigate or prosecute any alcohol or drug abuse patient.[facility] Hospital[facility] the event this information is protected by the Federal Confidentiality of Alcohol and Drug Abuse Patient Records regulations: The Federal rules restrict any use of the information to criminally investigate or prosecute any alcohol or drug abuse patient.[facility] HospitalIn the event this information is protected by the Federal Confidentiality of Alcohol and Drug Abuse Patient Records regulations: The Federal rules restrict any use of the information to criminally investigate or prosecute any alcohol or drug abuse patient.[facility] HospitalIn the event this information is protected by the Federal Confidentiality of Alcohol and Drug Abuse Patient Records regulations: The Federal rules restrict any use of the information to criminally investigate or prosecute any alcohol or drug abuse patient.[facility] HospitalIn the event this information is protected by the Federal Confidentiality of Alcohol and Drug Abuse Patient Records regulations: The Federal rules restrict any use of the information to criminally investigate or prosecute any alcohol or drug abuse patient.[facility] HospitalIn the event this information is protected by the Federal Confidentiality of Alcohol and Drug Abuse Patient Records regulations: The Federal rules restrict any use of the information to criminally investigate or prosecute any alcohol or drug abuse patient.[facility] HospitalIn the event this information is protected by the Federal Confidentiality of Alcohol and Drug Abuse Patient Records regulations: The Federal rules restrict any use of the information to criminally investigate or prosecute any alcohol or drug abuse patient.[facility] HospitalIn the event this information is protected by the Federal Confidentiality of Alcohol and Drug Abuse Patient Records regulations: The Federal rules restrict any use of the information to criminally investigate or prosecute any alcohol or drug abuse patient.[facility] Care Teams (unrecognized sec tion and content) Team Status: Active Member Role Status Dates NON STAFF Primary Care Provider Active Team Status: Active Member Role Status Dates NON STAFF Primary Care Provider Active Start: March 15, 2025 Lee Pichardo , DO Admit Provider Active Start: March 15, 2025 Patrica Pfeiffer MD Other Provider Active Start: A ugust 2024 Jomar Suárez MD Other Provider Active Start: Mar Yamil Bryant II, DO Other Provider Active Start: March 15, 2025 Lee Ignacio MD Other Provider Active Start: March 15, 2025 Rei Maya DO Attending Provider Active St art: March 15, 2025 Rei Maya DO Other Provider Active Start: March 15, 2025 Rosi Pena , SILK SCREEN REPAIRER Other Provider Active Start: March 15, 2025 Doris Pope , Other Provider Active Sta rt: March 15, 2025 Davion Hair DO FELLOW Other Provider Active Start: March 15, 2025 Robert Rodriguez DO FELLOW Other Provider Active S tart: March 15, 2025 Jamel Loaiza MD Other Provider Active Start: March 15, 2025 Team Status: Inactive Member Role Status Dates Yodit Riley DO Attending Provider Active St art: April 16, 2025 End: April 16, 2025 NON STAFF Primary Care Provider Active Start: April 16, 2025 End: April 16, 2025 Residential Sales Executive Relationship Specialty Start Date End Date Cristiano Graham . [address] [facility] [place] [address] PCP - General Family Practice 12/02/21 Vick Maxwell MD [address] [place] [place] [address] Referring Pain Management 12/02/21 Team Status: Inactive Member Role Status Dates Cristiano Graham DO Primary Care Provider Active Jory Ulrich PA-C Attending Provider Active Team Status: Active Member Role Status Dates Cristiano Graham DO Primary Care Provider Active Team Status: Inactive Member Role Status Dates Cristiano Graham DO Primary Care Provider, Attending Pr rohini Active Residential Sales Executive Relationship Specialty Start Date End Date Cristiano Graham Sr. [address] [place] [address] PCP - General Family Medicine 12/02/21 Vick Maxwell MD [address] [place] [address] Referring Pain Management 12/02/21 Residential Sales Executive Relationship Specialty Start Date End Date Cristiano Graham Sr. [address] [place] [address] PCP - General Family Medicine 12/02/21 Vick Maxwell MD [address] [place] [address] Referring Pain Management 12/02/21 Residential Sales Executive Relationship Specialty Start Date End Date Cristiano Graham Sr. [address] [place] [address] PCP - General Family Medicine 12/02/21 Vick Maxwell MD [address] [place] [address] Referring Pain Management 12/02/21 Residential Sales Executive Relationship Specialty Start Date End Date Cristiano Graham Sr [address] [place] [address] PCP - General Family Medicine 12/02/21 Vick Maxwell MD [address] [place] [address] Referring Pain Management 12/02/21 Residential Sales Executive Relationship Specialty Start Date End Date Cristiano Graham Sr. [address] [place] [address] PCP - General Family Medicine 12/02/21 Vick Maxwell MD [address] [place] [address] Referring Pain Management 12/02/21 Residential Sales Executive Relationship Specialty Start Date End Date Cristiano Graham Sr. [address] [place] [address] PCP - General Family Medicine 12/02/21 Vick Maxwell MD [address] [place] [address] Referring Pain Management 12/02/21 Team Status: Inactive Member Role Status Dates Cristiano Santos DO Primary Care Provider Active Michel Venegas MD Attending Provider Active Residential Sales Executive Relationship Specialty Start Date End Date Cristiano Graham Sr. [address] [place] [address] PCP - General Family Medicine 12/02/21 Vick Maxwell MD [address] [place] [address] Referring Pain Management 12/02/21 Residential Sales Executive Relationship Specialty Start Date End Date Cristiano Graham Sr. [address] [place] [address] PCP - General Family Medicine 12/02/21 Vick Maxwell MD [address] [place] [address] Referring Pain Management 12/02/21 Residential Sales Executive Relationship Specialty Start Date End Date Cristiano Graham Sr. [address] [place] [address] PCP - General Family Medicine 12/02/21 Vick Maxwell MD [address] [place] [address] Referring Pain Management 12/02/21 Team Status: Inactive Member Role Status Dates Cristiano Santos , Primary Care Provider Active Hussain Cristobal , DO Emergency Provider Active Residential Sales Executive Relationship Specialty Start Date End Date Cristiano Graham . [address] [place] [address] PCP - General Family Medicine 12/02/21 Vick Maxwell MD [address] [place] [address] Referring Pain Management 12/02/21 Residential Sales Executive Relationship Specialty Start Date End Date Cristiano Graham . [address] [place] [address] PCP - General Family Medicine 12/02/21 Vick Maxwell MD [address] [place] [address] Referring Pain Management 12/02/21 Residential Sales Executive Relationship Specialty Start Date End Date Cristiano Graham . [address] [place] [address] PCP - General Family Medicine 12/02/21 Vick Maxwell MD [address] [place] [address] Referring Pain Management 12/02/21 Team Status: Inactive [...] Inactive Member Role Status Dates Gail Garcia APRN-[employer]-C Attending Provider Active PHYSICIAN NO FAMILY Primary Care Provider Active Team Status: Inactive Member Role Status Dates PHYSICIAN NO FAMILY Primary Care Provider Active Start: September 26, 2023 End: September 27, 2023 Nabil Maya DO Emergency Provider Active Sta rt: September 26, 2023 End: September 27, 2023 Residential Sales Executive Relationship Specialty Start Date End Date Santos Cristiano Molly Sr., DO [address] [place] [address] PCP - [facility] 07/20/23 Residential Sales Executive Relationship Specialty Start Date End Date Cristiano Graham Molly Sr., DO [address] [place] [address] PCP - [facility] 07/20/23 Team Status: Inactive Member Role Status Dates PHYSICIAN NO FAMILY Primary Care Provider Active Start: September 13, 2024 End: September 13, 2024 Hussain Cristobal DO Emergency Provider Active St art: September 13, 2024 End: September 13, 2024 Team Status: Inactive Member Role Status Dates PHYSICIAN NO FAMILY Primary Care Provider Active Start: December 29, 2024 End: December 29, 2024 Lora Power MD Attending Provider Active Start: December 29, 2024 End: December 29, 2024 Goals (unrecognized section and content) Goals [...] BE BASED ON THE PRIMARY CLINICAL RECORDS. [employer] [facility]. provides no warranty or guarantee of the accuracy or completeness of information in this document.
--- NOTE | 2025-05-20 10:53 | ED.GENADUL1 ---
HPI HPI - General Adult General Chief complaint: Upper Respiratory Infection Stated complaint: HYPERTENSION, URTI COMPLAINTS Time Seen by Provider: 05/20/25 10:11 Source: patient Mode of arrival: walk-in Limitations: no limitations History of Present Illness HPI narrative: cc - sinus symptoms Pt has recurrent sinus pressure, nasal congestion, sinus headache for the last 4 weeks. She has long hstory of recurent sinusitis and had septum perforation following sinus surgery with Dr Og, who she no longer sees. Patient also had pneumonia with hospitalization last month. Her PCP prescribed amoxicillin for sinus symptoms but it gave her GI symptoms so she stopped around 05/03/25. She went to urgent care yesterday and was started on doxycycline, but it has also caused GI symptoms. She told me that she has long history of GI problems and had an upper scope scheduled last month but canceled because of the pneumonia. She is also out of her albuterol inhaler Long history of tobacco use Related Data Home Medications ?Medication ?Instructions ?Recorded ?Confirmed cyanocobalamin (vitamin B-12) 1,000 mcg IM .monthly 09/22/23 05/20/25 1,000 mcg/mL injection solution cyclobenzaprine 10 mg tablet 10 mg PO DAILY 09/22/23 05/20/25 omeprazole 20 mg capsule,delayed 20 mg PO DAILY 09/22/23 05/20/25 release gabapentin 800 mg tablet 800 mg PO TID 05/20/25 05/20/25 ropinirole 1 mg tablet 1 mg PO BEDTIME PRN restless leg(s) 05/20/25 05/20/25 trazodone 150 mg tablet 150 mg PO BEDTIME 05/20/25 05/20/25 Previous Rx's ?Medication ?Instructions ?Recorded tizanidine 4 mg tablet (Zanaflex) 4 mg PO TID PRN muscle spasticity 05/23/23 5 days #15 tabs albuterol sulfate 90 mcg/actuation 2 inh inhalation Q6H PRN shortness 05/20/25 aerosol inhaler of breath or wheezing #8.5 grams fluticasone propionate 50 1 spray intranasal DAILY PRN sinus 05/20/25 mcg/actuation nasal congestion #16 grams spray,suspension (Flonase Allergy Relief) nabumetone 750 mg tablet 750 mg PO BID PRN pain #14 tabs 05/20/25 ondansetron 4 mg disintegrating 4 mg PO Q6H PRN nausea and 05/20/25 tablet vomiting #20 tabs Allergies Allergy/AdvReac Type Severity Reaction Status Date / Time No Known Drug Allergies Allergy Verified 05/23/23 12:59 Opioid HPI Opioid Management Most Recent Opioid Data: Last Pain Scale 8 Today, 10:30 PFSH PFS Social History Smoking status: Current every day smoker Little interest or pleasure in doing things: not at all Feeling down, depressed, or hopeless: not at all Exam Narrative Exam Narrative: Nurses notes and vital signs reviewed and patient is not hypoxic. afebrile General: Well-appearing and in no apparent distress. Skin: Warm, dry, no pallor noted. No rash. Head: Normocephalic, atraumatic. Neck: Supple, non-tender. No meningismus. No cervical lymphadenopathy. Eye: Pupils are equal, round and EOMI. No scleral icterus. Ears, Nose, Mouth, and Throat: TM are clear, no posterior oropharynx erythema, uvula is mid-line. Oral mucosa is moist. Moderate nasal mucosal hypertrophy with some rhinorrhea Cardiovascular: Regular Rate and Rhythm without murmur, gallop or rub. Respiratory: No accessory muscle use or respiratory distress. Lungs with scattered end expiratory wheezes, no rales or rhonchi Musculoskeletal: normal ROM GI: Abdomen is soft, non-distended. Normal bowel sounds. No tenderness to palpation. No rebound, guarding, or rigidity noted. Neurological: A&O x4. No cranial nerve dysfunction observed. No truncal ataxia. Moves all extremities. Sensation intact. Psychiatric: Cooperative and interactive. Normal mood and affect. Constitutional Vital Signs, click to edit/add: Last Vital Signs Temp 97.6 F 05/20/25 10:08 Pulse 90 05/20/25 10:08 Resp 18 05/20/25 10:08 BP 142/92 H 05/20/25 10:08 Pulse Ox 100 05/20/25 10:28 O2 Del Method Room Air 05/20/25 10:28 Course Vital Signs Vital signs: Vital Signs Temperature 97.6 F 05/20/25 10:08 Pulse Rate 90 05/20/25 10:08 Respiratory Rate 18 05/20/25 10:08 Blood Pressure 142/92 H 05/20/25 10:08 Pulse Oximetry 90 L 05/20/25 10:08 Oxygen Delivery Method Room Air 05/20/25 10:08 Temperature 97.6 F 05/20/25 10:08 Pulse Rate 90 05/20/25 10:08 Respiratory Rate 18 05/20/25 10:08 Blood Pressure 142/92 H 05/20/25 10:08 Pulse Oximetry 100 05/20/25 10:28 Oxygen Delivery Method Room Air 05/20/25 10:28 Medical Decision Making MDM Narrative Medical decision making narrative: Patient has acute on chronic sinusitis. She is already on doxycycline, started yesterday. She is out of her albuterol inhaler so I prescribed a refill. I also prescribed Flonase and instructed her to stop her brfc-[id number] nasal spray = Terence-Synephrine. Furthermore I gave her dose of Zofran here in the ED and prescribe Zofran for her to take at home so that she can continue to take the doxycycline as I think will be the best and most well-tolerated medication for her based on her previous intolerances with a variety of antibiotics. She asked for something to help with her sinus pain and headache so I gave her a shot of Toradol before discharge. She was also prescribed nabumetone to take at home for any continued pain. She was given referral information for Dr. Heaton, as she had taken her son to see him previously and asked if she can get referral information. Discharge Plan Discharge Chief Complaint: Upper Respiratory Infection Clinical Impression: Sinusitis Patient Disposition: Home, Self-Care Time of Disposition Decision: 10:51 Prescriptions / Home Meds: New nabumetone 750 mg tablet 750 mg PO BID PRN (Reason: pain) Qty: 14 0RF albuterol sulfate 90 mcg/actuation HFA aerosol inhaler 2 inh inhalation Q6H PRN (Reason: shortness of breath or wheezing) Qty: 8.5 0RF ondansetron 4 mg tablet,disintegrating 4 mg PO Q6H PRN (Reason: nausea and vomiting) Qty: 20 0RF fluticasone propionate [Flonase Allergy Relief] 50 mcg/actuation spray,suspension 1 spray intranasal DAILY PRN (Reason: sinus congestion) Qty: 16 0RF Rx Instructions: administer into each nostril No Action tizanidine [Zanaflex] 4 mg tablet 4 mg PO TID PRN (Reason: muscle spasticity) 5 Days Qty: 15 0RF cyclobenzaprine 10 mg tablet 10 mg PO DAILY cyanocobalamin (vitamin B-12) 1,000 mcg/mL solution 1,000 mcg IM .monthly omeprazole 20 mg capsule,delayed release(DR/EC) 20 mg PO DAILY gabapentin 800 mg tablet 800 mg PO TID trazodone 150 mg tablet 150 mg PO BEDTIME ropinirole 1 mg tablet 1 mg PO BEDTIME PRN (Reason: restless leg(s)) Print Language: Albanian Instructions: Sinusitis (ED) Referrals: Zara Pacheco MD [Physician, Ear, Nose, Throat] - As soon as possible
[2025-05-20] MEDS: ONDANSETRON 4 MG RAPDIS TABLET SL (11:11)
[2025-05-20] MEDS: KETOROLAC TROMETHAMINE 60 MG/2 ML VIAL IM (11:11)
== END 2025-05-20 11:16 | disposition home or self-care (01) ==
PROVIDERS: Emergency Provider Emergency Medicine
DX: J01.90 Acute sinusitis, unspecified (principal); Z87.01 Personal history of pneumonia (recurrent); F17.200 Nicotine dependence, unspecified, uncomplicated
CPT/HCPCS: 96372; 99284; J1885; Q0162

== ENCOUNTER 2025-05-26 18:51 | Emergency (ER) | payer OTHER, SELFPAY ==
--- OUTSIDE RECORDS SUMMARY | 2024-01-17 05:00 | XMS_ITS ---
Author Organization [facility] Address [address] [place] [address] Care Team Providers Care Alcohol Law Enforcement Agent Name Role Phone Dr. Davion Edmondson Primary Care Provider REASON FOR VISIT EXT Encounters Encounter Location Date Provider Diagnosis [facility] [address] [place] [address] 01/17/2024 Davion Edmondson Plan Of Treatment No Information Progress Notes * GREGG ROY ADOB:1975 (49 yo F)Acc No.[id number]:01/17/2024 Patient: GREGG CHAN Provider: Pauly Edmondson DDS :1975 A ge:48 Y S ex:Female Date:01/17/2024 Address[facility] [facility] Subjective: * Chief Complaints: * E XT * Electronic signature of Dr. Davion Edmondson , [facility], [id number] on 05/26/2025 at 06:58 PM EDT Sign off status: Pending * Provider: Pauly Edmondson DDS Date: 0 01/17/2024 Generated for Printi ng/Faxing/eTransmitting on: 1 06:58 PM EDT
--- OUTSIDE RECORDS SUMMARY | 2025-05-19 12:45 | XMS_ITS | Encounter Summary ---
Author Organization [facility] Address [address] [place] [address] Care Team Providers Care Quality Control Assistant Name Role Phone Unavailable Primary Care Provider Unavailabl e Encounter Details Date Type Department Care Team (Late st Contact Info) Description 05/19/2025 12:45 PM EDT Office Visit [facility] [address] [facility] [address] [address] [address] [address] [place] [id number] Lalito Crum, [address] [place] [id number] Acute recurrent maxillary sinusitis (Primary Dx); Acute bronchitis, unspecified organism Social History Tobacco Use Types Packs/Day Years [...] on file documented as of this encounter Last Filed Vital Signs Vital Sign Reading Time Taken Comments Blood Pressure 132/86 05/19/2025 12:52 PM EDT Pulse 96 05/19/2025 12:52 PM EDT Temperature 36.6 C (97.8 F) 05/19/2025 12:52 PM EDT Respiratory Rate - - Oxygen Saturation 98% 05/19/2025 12:52 PM EDT Inhaled Oxygen Concentration - - Weight 50.8 kg (112 lb) 05/19/2025 12:52 PM EDT Height - - Body Mass Index 17.28 04/25/2025 10:04 AM EDT documented in this encounter Progress Notes * Lalito Crum, - 05/19/2025 12:45 PM EDT Images from the original note were not included. [address] [facility], [address] P: [phone] F: [phone] HPI Historian of HPI: patient Macie Cloud is a 49 y.o. female who presents today to the Urgent Care with the following complaints and denials which have been present for 2 week(s) C/O Denies Symptom Comments [x] [] Runny Nose Yellow [] [x] Difficulty Swallowing [] [x] Sore Throat [x] [] Cough [x] [] Ear Pain Lower ear by jaw [] [x] Fever [] [x] Chills [x] [] Nasal Congestion [x] [] Myalgia Teeth pain [x] [] Sinus Pain Headache [x] [] Sinus Pressure Additional Comments: pt has taken sinus severe motrin tylenol benadryl OTC medication without relief Pt is present with sinus symptoms. PT admits to teeth pain, eye pain, and SALGADO. Pt mentions left nostril feels like a possible abscess present. Pt been having high blood pressure due to pain. PT was taken amoxicillin but is not helping. Pt did have pneumonia March 15 to March 20 was admitted in the ICU. Pt last scan was April 08 pneumonia in the right lung was still present. No testing at this time symptoms over 2 weeks. ROS A complete system ROS was performed and negative aside from the pertinent positives noted in the HPI and PE. PHYSICAL EXAM Physical Exam Constitutional: Appearance: Normal appearance. HENT: Right Ear: Tympanic membrane normal. Left Ear: Tympanic membrane normal. Nose: Congestion and rhinorrhea present. Comments: Tender at the maxillary sinuses. Cardiovascular: Rate and Rhythm: Normal rate. Pulmonary: Breath sounds: No rales. Comments: Cough paroxysms are noted as well as coarse air entry. Neurological: Mental Status: She is alert. Psychiatric: Mood and Affect: Mood normal. TREATMENT PLAN Diagnoses and all orders for this visit: Acute recurrent maxillary sinusitis (Primary) - doxycycline (Vibramycin) 100 MG capsule; Take 1 capsule (100 mg) by mouth in the morning and 1 capsule (100 mg) before bedtime. Do all this for 10 days. Take with at least 8 ounces (large glass) ofwater, do not lie down for 30 minutes after. Acute bronchitis, unspecified organism - doxycycline (Vibramycin) 100 MG capsule; Take 1 capsule (100 mg) by mouth in the morning and 1 capsule (100 mg) before bedtime. Do all this for 10 days. Take with at least 8 ounces (large glass) ofwater, do not lie down for 30 minutes after. Take medications as prescribed. Use a humidifier when possible. May use acetaminophen or ibuprofen for pain or fever. RTO if worsening. documented in this encounter Plan of Treatment Upcoming Encounters Date Type Department Care Team (Late st Contact Info) Description 06/20/2025 1:00 PM EST Clinical Support [facility] [address] [place] [address] Jeison Power MD [address] [place] [address] documented as of this encounter Visit Diagnoses Diagnosis Acute recurrent maxillary sinusitis- Primary Acute bronchitis, unspecified organism documented in this encounter
--- OUTSIDE RECORDS SUMMARY | 2025-05-22 12:34 | XMS_ITS | Encounter Summary ---
Author Organization [facility] Address [address], [address] [place] [address] Care Team Providers Care Crusher Setter Name Role Phone Unavailable Primary Care Provider Unavailabl e Reason for Visit * Imaging (Routine) - Closed Specialty Diagnoses / Procedures Referred By Jorgito valle Referred To Contact Radiology Diagnoses Cubital tunnel syndrome of both upper extremities Cervical radiculopathy Cervical spinal stenosis Procedures IR MYELOGRAM CERVICAL FL MYELOGRAM CERVICAL S&I Prem Fontanez MD [address] [address] Phone: tel: fax: Referral ID Status Reason Start Date Expiration Date Visits Re quested Visits Authorized [id number] Closed 05/07/2025 05/07/2026 1 1 Encounter Details Date Type Department Care Team (Late st Contact Info) Description 05/22/2025 12:34 PM EDT - 05/24/2025 11:59 PM EDT Hospital Encounter [facility] Special Procedures [address] [place] [address] Radiologist, Stv Interventional Cubital tunnel syndrome of both upper extremities; Cervical radiculopathy; Cervical spinal stenosis Discharge Disposition: Home or Self Care Social History Tobacco Use Types Packs/Day Years Used Date Smoking Tobacco: Every Day Cigarettes 1.5 39.8 Started: 08/15/1985 Smokeless Tobacco: Current Alcohol Use Standard Drinks/Week Comments Yes 5 (1 standard drink = 0.6 oz pur e alcohol) occas [facility] Utilities Answer Date Recorded In the [...] place to sleep or slept in a correction (including now)? No 10/11/2023 Interpersonal Safety ([facility] HRSN) Answer Date Recorded How often [...] Sign Reading Time Taken Comments Blood Pressure 202/102 05/22/2025 3:00 PM EDT Pulse 65 05/22/2025 3:00 PM EDT Temperature 37 C (98.6 F) 05/22/2025 3:00 PM EDT Respiratory Rate 16 05/22/2025 3:00 PM EDT Oxygen Saturation 100% 05/22/2025 3:00 PM EDT Inhaled Oxygen Concentration - - Weight - - Height - - Body Mass Index - - documented in this encounter Discharge Instructions * Discharge Instructions* Terra Medrano RN - 05/22/2025 3:00 PM EDT You may have a normal diet but should eat lightly day of surgery. Drink plenty of fluids. Urinate within 8 hours after surgery, if unable to urinate call your doctor. * Attachments The following attachments cannot be sent through Care Everywhere. * Myelogram (Cambodian) documented in this encounter Medications at Time of Discharge QUEtiapine (SEROQUEL) 200 MG tablet Take 1 tablet by mouth 2 times daily 04/20/2024 buprenorphine-nal oxone (SUBOXONE) 8-[address] film [address] 2.5 Film under the tongue daily. cyanocobalamin 1000 MCG/ML injection Inject 1 mL into the muscle every 7 days 01/04/2024 tiZANidine (ZANAFLEX) 4 MG tablet Take 1 tablet by mouth every 8 hours as needed 12/25/2023 amitriptyline (ELAVIL) 100 MG tablet Take 0.5 tablets by mouth nightly albuterol sulfate HFA (PROVENTIL;VENTOL IN;PROAIR) 108 (90 Base) MCG/ACT inhaler Inhale 2 puffs into the lungs every 6 hours as needed for Wheezing lisinopril-hydroC HLOROthiazide (PRINZIDE;ZESTORE TIC) 20-12.5 MG per tablet Take 1 tablet by mouth daily 09/20/2022 gabapentin (NEURONTIN) 800 MG tablet Take 1 tablet by mouth 3 times daily. rOPINIRole (REQUIP) 1 MG tablet Take 1 tablet by mouth nightly as needed omeprazole (PRILOSEC) 20 MG delayed release capsule 2 capsules Daily 09/14/2020 documented as of this encounter Progress Notes * Jesi Patrick RN - 05/22/2025 2:00 PM EDT Pt arrives to room for cervical myelogram PA to bedside Dr Yanes to room CM RT to bedside Placed prone on table Site prepped and draped Access obtained and 10mls of isovue m 300 contrast injected Access removed and site covered with band aid Additional imaging obtained To CT * Terra Medrano RN - 05/22/2025 2:00 PM EDT Per Valeri in IR, pt ok for d/c ( re: BP). Pt BP baseline high on arrival. documented in this encounter Plan of Treatment Upcoming Encounters Date Type Department Care Team (Latest Contact Info) Description 06/03/2025 3:15 PM EDT Initial consult [facility] Pain Management [address] [place] [address] Felix Camarena, DO [address] [place] [address] M54.16 (ICD-10-CM) - Radiculopathy, lumbar region 06/19/2025 11:50 AM EST Office Visit [facility] Neurosurgery [address] [place] [address], [address] [place] [address] Prem Fontanez MD [address] [place] [address] [address] [place] [address] f/u after CT Cervical Myelogram documented as of this encounter Procedures Procedure Name Priority Date/Time Associated Diagnosis Comments IR MYELOGRAM CERVICAL Routine 05/22/2025 2:28 PM EDT Cubital tunnel syndrome of both upper extremities Cervical radiculopathy Cervical spinal stenosis APTT STAT 05/22/2025 1:49 PM EDT PROTIME-INR STAT 05/22/2025 1:49 PM EDT PLATELET COUNT STAT 05/22/2025 1:49 PM EDT documented in this encounter Results * IR MYELOGRAM CERVICAL (05/22/2025 2:28 PM EDT) Anatomical Region Laterality Modality C-spine, T-spine, Neck X-Ray Ang iography 05/22/2025 4:12 PM EDT Impressions 05/22/2025 5:27 PM EDT Successful fluoroscopic cervical myelogram. Narrative 05/22/2025 5:27 PM EDT EXAMINATION: FLUOROSCOPIC CERVICAL MYELOGRAM 05/22/2025: HISTORY: ORDERING SYSTEM PROVIDED HISTORY: Cubital tunnel syndrome of both upper extremities TECHNOLOGIST PROVIDED HISTORY: Is the patient ?->No FLUOROSCOPY DOSE AND TYPE: Fluoro time 1.1 minutes DAP 0.76 Gy cm 2 Views: 6 PROCEDURE: SOFTWARE EDUCATOR: James Phillips This procedure was performed by James Phillips PA-C under direct supervision of Dr. Yanes. Informed consent was obtained after a detailed explanation of the procedure including the risks, benefits, and alternatives. The patient was placed prone on the fluoroscopic table. The lower back was prepped and draped in usual sterile fashion. All elements of maximal sterile barrier technique, including cap, mask, sterile gown, sterile gloves, a large sterile sheet, hand hygiene and 2% chlorhexidine for cutaneous antisepsis were followed. 1% lidocaine was used as local anesthetic. Under fluoroscopic guidance a 20-gauge spinal needle was advanced into the thecal sac at the L2 level. Upon establishing CSF fluid return, approximately 10 mL of Isovue-M 300 was intrathecally administered. The stylet was reinserted and needle was then removed. A sterile dressing was applied. Estimated blood loss was less than 1 mL. Previous fusion in the lumbar spine. The patient was tilted to allow contrast to flow to the cervical spine. Extensive anterior and posterior cervical spinal hardware fusion. The patient tolerated the procedure well and left the department in stable condition. . Procedure Note Pravin Yanes MD - 05/22/2025 EXAMINATION: FLUOROSCOPIC CERVICAL MYELOGRAM 05/22/2025: HISTORY: ORDERING SYSTEM PROVIDED HISTORY: Cubital tunnel syndrome of both upper extremities TECHNOLOGIST PROVIDED HISTORY: Is the patient ?->No FLUOROSCOPY DOSE AND TYPE: Fluoro time 1.1 minutes DAP 0.76 Gy cm 2 Views: 6 PROCEDURE: SOFTWARE EDUCATOR: James Phillips This procedure was performed by James Phillips PA-C under directsupervision of Dr. Yanes. Informed consent was obtained after a detailed explanationof the procedure including the risks, benefits, and alternatives. Thepatient was placed prone on the fluoroscopic table. The lower back was preppedand draped in usual sterile fashion. All elements of maximal sterile barrier technique, including cap, mask, sterile gown, sterile gloves, a largesterile sheet, hand hygiene and 2% chlorhexidine for cutaneous antisepsis were followed. 1% lidocaine was used as local anesthetic. Under fluoroscopic guidance a 20-gauge spinal needle was advanced into the thecal sac at theL2 level. Upon establishing CSF fluid return, approximately 10 mL of Isovue-M 300was intrathecally administered. The stylet was reinserted and needle wasthen removed. A sterile dressing was applied. Estimated blood loss was lessthan 1 mL. Previous fusion in the lumbar spine. The patient was tilted toallow contrast to flow to the cervical spine. Extensive anterior andposterior cervical spinal hardware fusion. The patient tolerated the procedure well and left the department instable condition. . IMPRESSION: Successful fluoroscopic cervical myelogram. Prem Fontanez MD IMG IR ORDERABLES Final Resu lt * APTT (05/22/2025 1:49 PM EDT) APTT 26.5 23.0 - 36.5 sec 05/22/2025 1:49 PM EDT [facility] Comment: IV Heparin Therapy Range: 66.0-92.0 sec 05/22/2025 1:49 PM EDT 05/22/2025 1:49 PM EDT James ANAND HEMATOLOGY ORDERABLES Final Resu lt [facility] [address] [place] [address] * Protime-INR (05/22/2025 1:49 PM EDT) Protime 12.2 11.7 - 14.9 sec 05/22/2025 1:49 PM EDT [facility] INR 0.9 05/22/2025 1:49 PM EDT [facility]box Comment: Therapeutic Range: Moderate Anticoagulant Intensity: INR = 2.0-3.0 High Anticoagulant Intensity: INR = 2.5-3.5 05/22/2025 1:49 PM EDT 05/22/2025 1:49 PM EDT James Picaboo PA HEMATOLOGY ORDERABLES Final Resu lt Performing Organization Address [facility]/ZIP Co de Phone Number [facility] [address] [place] [address], [facility] [phone] * (ABNORMAL) Platelet count (05/22/2025 1:49 PM EDT) Platelets 468(H) 138 - 453 k/uL 05/22/2025 1:49 PM EDT [facility] 05/22/2025 1:49 PM EDT 05/22/2025 1:49 PM EDT James ANAND HEMATOLOGY ORDERABLES Final Resu lt Performing Organization Address [facility] Co de Phone Number [facility] [address] [place] [address], [facility] [phone] documented in this encounter Visit Diagnoses Diagnosis Cubital tunnel syndrome of both upper extremities Cervical radiculopathy Brachial neuritis or radiculitis nos Cervical spinal stenosis Spinal stenosis in cervical region documented in this encounter Administered Medications Inactive Administered Medications - up to 3 most recent administrations Medication Order MAR Action Action Date Dose Rate Site iopamidol (ISOVUE-M 300) 61 % injection 15 mL 15 mL, Intrathecal, IMG ONCE PRN, 1 dose, Starting on Tue05/22/25 at 1429, Until Tue05/22/25 at 1430, Other Given 05/22/2025 2:30 PM EDT 10 mLs documented in this encounter
--- OUTSIDE RECORDS SUMMARY | 2025-05-22 12:35 | XMS_ITS | Encounter Summary ---
Author Organization [facility] Address [address], [address] [place] [address] Care Team Providers Care Pigskin Trimmer Name Role Phone Unavailable Primary Care Provider Unavailabl e Reason for Referral * Imaging (Routine) - Closed Specialty Diagnoses / Procedures Referred By Jorgito valle Referred To Contact Radiology Diagnoses Cubital tunnel syndrome of both upper extremities Cervical radiculopathy Cervical spinal stenosis Procedures CT CERVICAL SPINE W CONTRAST Prem Fontanez MD [address] [place] [address] Phone: tel: fax: Referral ID Status Reason Start Date Expiration Date Visits Re quested Visits Authorized [id number] Closed 05/12/2025 05/07/2026 1 1 Reason for Visit * Imaging (Routine) - Closed Specialty Diagnoses / Procedures Referred By Contac t Referred To Contact Radiology Diagnoses Cubital tunnel syndrome of both upper extremities Cervical radiculopathy Cervical spinal stenosis Procedures CT CERVICAL SPINE W CONTRAST Prem Fontanez MD [address] [address] Phone: tel: fax: Referral ID Status Reason Start Date Expiration Date Visits Re quested Visits Authorized [id number] Closed 05/12/2025 05/07/2026 1 1 Encounter Details Date Type Department Care Team (Latest Contact Info) Description 05/22/2025 12:35 PM EDT - 05/24/2025 11:59 PM EDT Hospital Encounter [facility] CT Scan [address] [place] [address] Cubital tunnel syndrome of both upper extremities; Cervical radiculopathy; Cervical spinal stenosis Discharge Disposition: Home or Self Care Social History Tobacco Use Types Packs/Day Years Used Date Smoking Tobacco: Every Day Cigarettes 1.5 39.8 Started: 08/15/1985 Smokeless Tobacco: Current Alcohol Use Standard Drinks/Week Comments Yes 5 (1 standard drink = 0.6 oz pur e alcohol) occas [facility] Utilities Answer Date Recorded In the [...] place to sleep or slept in a longterm (including now)? No 10/11/2023 Interpersonal Safety ([facility] HRSN) Answer Date Recorded How often [...] on file documented as of this encounter Medications at Time of Discharge [...] Daily 09/14/2020 documented as of this encounter Plan of Treatment Upcoming Encounters Date Type Department Care Team (Latest Contact Info) Description 06/03/2025 3:15 PM EDT Initial consult [facility] Pain Management [address] [place] [address] Felix Camarena, [address] [place] [address] M54.16 (ICD-10-CM) - Radiculopathy, lumbar region 06/19/2025 11:50 AM EST Office [facility] [place] [address], [address] [place] [address] Prem Fontanez MD [address] [place], [place] [id number] f/u after CT Cervical Myelogram documented as of this encounter Procedures Procedure Name Priority Date/Time Associated Diagnosis Comments CT CERVICAL SPINE W CONTRAST Routine 05/22/2025 2:32 PM EDT Cubital tunnel syndrome of both upper extremities Cervical radiculopathy Cervical spinal stenosis documented in this encounter Results * CT CERVICAL SPINE W CONTRAST (05/22/2025 2:32 PM EDT) Anatomical Region Laterality Modality C-spine, T-spine, Neck Computed Tomography 05/22/2025 5:11 PM EDT Impressions 05/23/2025 8:32 PM EDT Degenerative and extensive postoperative changes of the cervical spine. Moderate spinal stenosis and moderate to severe bilateral neural foraminal stenoses C6-C7 and C7-T1. Narrative 05/23/2025 8:32 PM EDT EXAMINATION: CT OF THE CERVICAL SPINE WITH INTRATHECAL CONTRAST, 05/22/2025 2:23 pm TECHNIQUE: CT of the cervical spine was performed after the administration of intrathecal contrast with multiplanar reconstructed images provided for interpretation. Dose modulation, iterative reconstruction, and/or weight based adjustment of the mA/kV was utilized to reduce the radiation dose to as low as reasonably achievable. COMPARISON: 07/18/2023, myelogram images 05/22/2025 HISTORY: ORDERING SYSTEM PROVIDED HISTORY: Cubital tunnel syndrome of both upper extremities TECHNOLOGIST PROVIDED HISTORY: STAT Creatinine as needed:->Yes Cubital tunnel syndrome of both upper extremities - G56.23 Reason for Exam: post myelogram ct cervical FINDINGS: BONES/ALIGNMENT: There is similar alignment of the spine. Minimal anterolisthesis C6-C7. The vertebral body heights are maintained. No destructive osseous lesion is seen. Previous anterior discectomy and fusion C4-C6 with anterior plate and screws and metallic implants at the disc space levels. Previous posterior decompression C3-C4 with posterior osseous and metallic hardware fusion C2-C5. Evidence of DISH again noted. Metallic hardware causes mild regional artifact. SOFT TISSUES: There is no prevertebral soft tissue swelling. Visualized lung apices show emphysematous changes. Shotty cervical lymph nodes. C2-C3: There is no significant disc protrusion, spinal canal stenosis or neural foraminal narrowing. C3-C4: There is no significant disc protrusion, spinal canal stenosis or neural foraminal narrowing. Previous posterior decompression. C4-C5: No significant spinal stenosis. There may be mild right neural foraminal narrowing. Previous posterior decompression. Previous anterior fusion. C5-C6: There is no significant disc protrusion, spinal canal stenosis or neural foraminal narrowing. There is slight flattening of the ventral aspect of the thecal sac. Previous anterior and posterior fusion hardware. C6-C7: Advanced facet arthropathy, greater on the left. Slight anterolisthesis results in uncovering of disc material. Mild ligamentum flavum thickening. Combination results in moderate spinal stenosis. Moderate to severe bilateral neural foraminal stenosis. C7-T1: Advanced disc degenerative changes. Moderate spinal stenosis. Moderate to severe bilateral neural foraminal stenosis, worse on the left. Procedure Note Pravin Yanes MD - 05/23/2025 EXAMINATION: CT OF THE CERVICAL SPINE WITH INTRATHECAL CONTRAST, 05/22/2025 2:23 pm TECHNIQUE: CT of the cervical spine was performed after the administration of intrathecal contrast with multiplanar reconstructed images provided for interpretation. Dose modulation, iterative reconstruction, and/or weight based adjustment of the mA/kV was utilized to reduce the radiation dose toas low as reasonably achievable. COMPARISON: 07/18/2023, myelogram images 05/22/2025 HISTORY: ORDERING SYSTEM PROVIDED HISTORY: Cubital tunnel syndrome of both upper extremities TECHNOLOGIST PROVIDED HISTORY: STAT Creatinine as needed:->Yes Cubital tunnel syndrome of both upper extremities - G56.23 Reason for Exam: post myelogram ct cervical FINDINGS: BONES/ALIGNMENT: There is similar alignment of the spine. Minimal anterolisthesis C6-C7. The vertebral body heights are maintained. No destructive osseous lesion is seen. Previous anterior discectomy andfusion C4-C6 with anterior plate and screws and metallic implants at the discspace levels. Previous posterior decompression C3-C4 with posterior osseousand metallic hardware fusion C2-C5. Evidence of DISH again noted. Metallic hardware causes mild regional artifact. SOFT TISSUES: There is no prevertebral soft tissue swelling. Visualizedlung apices show emphysematous changes. Shotty cervical lymph nodes. C2-C3: There is no significant disc protrusion, spinal canal stenosis or neural foraminal narrowing. C3-C4: There is no significant disc protrusion, spinal canal stenosis or neural foraminal narrowing. Previous posterior decompression. C4-C5: No significant spinal stenosis. There may be mild right neural foraminal narrowing. Previous posterior decompression. Previousanterior fusion. C5-C6: There is no significant disc protrusion, spinal canal stenosis or neural foraminal narrowing. There is slight flattening of the ventralaspect of the thecal sac. Previous anterior and posterior fusion hardware. C6-C7: Advanced facet arthropathy, greater on the left. Slight anterolisthesis results in uncovering of disc material. Mild ligamentum flavum thickening. Combination results in moderate spinal stenosis. Moderate to severe bilateral neural foraminal stenosis. C7-T1: Advanced disc degenerative changes. Moderate spinal stenosis. Moderate to severe bilateral neural foraminal stenosis, worse on theleft. IMPRESSION: Degenerative and extensive postoperative changes of the cervical spine. Moderate spinal stenosis and moderate to severe bilateral neuralforaminal stenoses C6-C7 and C7-T1. us Prem Fontanez MD IMG CT ORDERABLES Final Resu lt documented in this encounter Visit Diagnoses Diagnosis Cubital tunnel syndrome of both upper extremities Cervical radiculopathy Brachial neuritis or radiculitis nos Cervical spinal stenosis Spinal stenosis in cervical region documented in this encounter
[2025-05-26] VITALS (14 sets, daily range): BP systolic 110–132; BP diastolic 72–106; PULSE 71–126; TEMP 36.6; O2SAT 98; BMI 17.5
--- OUTSIDE RECORDS SUMMARY | 2025-05-26 18:58 | XMS_ITS | Encounter Summary ---
Author Organization [facility] Address [address] [place] [address] Care Team Providers Care Commodity Buyer Name Role Phone Vick Maxwell MD Unavailable [phone] Cristiano CARBONE Primary Care Provider + Source Comments In the event this information is protected by the Federal Confidentiality of Alcohol and Drug AbusePatient Records regulations: The Federal rules restrict any use of the information to criminally investigate or prosecute any alcohol or drug abuse patient.[facility] Encounter Details Date Type Department Care Team (Late st Contact Info) Description 01/22/2022 Get Medical Advice [facility] [address] [phone] Lei Romero PA-C [address] [place] [address] Imagine Social History Tobacco Use [...] N ot on file 01/01/2022 Data from: https://www.neighborhoodatlas.medicine.[facility]/. Last address used for calculation [address] [...] Entry Date Author No 06/30/2017 1:40 PM ISSSY Lucero Do n K documented in this encounter Plan of Treatment Not on file documented as of this encounter Visit Diagnoses Not on filedocumented in this encounter Care Teams Commodity Buyer Relationship Specialty Start Date End Date Cristiano De Leon Sr., [address] [place] [address] PCP - General Family Medicine 12/02/21 Vick Maxwell MD [address] [place] [address] Referring Pain Management 12/02/21 documented as of this encounter
--- OUTSIDE RECORDS SUMMARY | 2025-05-26 18:58 | XMS_ITS | Encounter Summary ---
Author Organization [facility] Address [address] [place] [address] Care Team Providers Care Photo Editor Name Role Phone Unavailable Primary Care Provider Unavailabl e Encounter Details Date Type Department Care Team (Late Contact Info) Description 10/18/2024 Orders Only [facility] [address] [facility] [address] [place] [address] Shana Kelsey R. EEG. T. [...] 06/20/2025 1:00 PM EST Clinical Support [facility] [address] [facility] [address] [place] [address] Jeison Power MD [address] [place] [phone] Pending Results Name Type Priority Associated Diagnoses [...]
--- OUTSIDE RECORDS SUMMARY | 2025-05-26 18:58 | XMS_ITS | Patient Health Record ---
Author Organization [facility] Address [address] [place] [address] Care Team Providers Care Motor Power Connector Name Role Phone Dr. Davion Edmondson Primary Care Provider Reason For Referral No Information Social History Tobacco Use: Social History Observation Description Date Details (start date - stop date) Current Smoker NA - NA Social History General Social Info Question Answer Notes Transition of Care: ER/UC/hospital since last office visit? Yes, report on file [facility] for HTN Depression Screening (PHQ-9): Little interest or pleasure in doing things Several days Feeling down, depressed, or hopeless Several [...] Total Score 15 Intepretation Moderately severe depression Substance abuse/mental health issues of patient/family Patient - Caffeine Use,Alcohol,Stress/Anxiety,Depr ession Ability to understand healthcare/treatment Patient: Fair Tobacco Screen: Are you a: current smoker How often do you smoke cigarettes? every day How many cigarettes a day do you smoke? 31 or more How soon after you wake up do you smoke your first cigarette? within 5 min Are you interested in quitting? Not ready to quit Social/Support Concerns: Patient: No Alcohol Screening: Did you have a drink containing alcohol in the past year? Yes How often did you have a drink containing alcohol in the past year? Monthly or less (1 point) How many drinks did you have on a typical day when you were drinking in the past year? 3 or 4 (1 point) Points 2 Interpretation Negative Behaviors affecting health Poor/Risky Behaviors: Nutrition-,Oral Health-,Second Hand Smoke- Communication Barrier: Language Barrier?: No Problems Problem Type SNOMED Code ICD Code Onset Dates Problem Status W/U Status Risk Notes Problem Essential hypertension ([id number]) Essential hypertension (I10) Active confirmed Plan Of Treatment No Information Insurance Providers Payer Name Payer Address Payer Phone Subscriber Number Group Number Insured Name Patient Relationship to Insured Coverage Start Date Coverage End Date zDENTAL DQ CARESOURC E-termed [address] [place] [address] [id number] GREGG ROY Self - patient is the insured 2 3 Dental CareSourc e DQ [place] [address] [place] [address] [id number] GREGG ROY Self - patient is the insured 3 zDental Medicaid ABD after [employer] E-termed [address] [place] [address] [id number] GREGG ROY Self - patient is the insured 2 3 Dental Wrap ABD CareSourc e [address] [place] [address] [id number] GREGG ROY Self - patient is the insured 3 Medical (General) History Surgical History Surgery Date(Month/Year) BACK, NECK AND LEFT FOOT SURGERY ENDOMETRIOSIS, Ex Lap x2 APPY Hysterectomy Hospitalization History Reason Date(Month/Year) SEE ABOVE
--- OUTSIDE RECORDS SUMMARY | 2025-05-26 18:58 | XMS_ITS | Encounter Summary ---
Author Organization [facility] Address [address] [place] [address] Care Team Providers Care Metal Box Maker Name Role Phone House Sr., Cristiano CARBONE Primary Care Provider + Encounter Details Date Type Department Care Team (Late st Contact Info) Description 04/23/2024 Orders Only [facility], [facility]surgery [address] [place] [phone] Provider, MD Chandni Social History Tobacco Use Types Packs/Day Years Used Date Smoking Tobacco: Every Day Cigarettes Smokeless Tobacco: Current Alcohol Use Standard Drinks/Week Comments Yes 0 (1 standard drink = 0.6 oz pur e alcohol) occas [facility] Utilities Answer Date Recorded In the past 12 months has [employer] electric, gas, oil, or water company threatened [...] place to sleep or slept in a residential (including now)? No 10/11/2023 Interpersonal Safety ([facility] HRSN) Answer Date Recorded How often does [...] Description 06/03/2025 3:15 PM EDT Initial consult [facility] [address] [place] [address] Felix Camarena DO [address] [place] [address] M54.16 (ICD-10-CM) - Radiculopathy, lumbar region 06/19/2025 11:50 AM EST Office Visit [facility] [place], [facility] [address] [place] [address], [address] [place] [address] Prem Fontanez MD [address] [place] [address] [address] [place] [address] f/u after CT Cervical Myelogram documented as [...] on filedocumented in this encounter Care Teams Metal Box Maker Relationship Specialty Start Date End Date Cristiano De Leon Sr., DO [address] [place] [address] PCP - General Family Medicine 07/20/23 05/21/25 documented as of this encounter
--- OUTSIDE RECORDS SUMMARY | 2025-05-26 18:58 | XMS_ITS | Clinical Summary ---
Author Organization Outline App tem Address [facility] [place] [place]-[id number] [address] [place] [address] Care Team Providers Care Lathe Turner Name Role Phone Cristiano De Leon DO Primary Care Provider [phone] Social History Tobacco Use Types Packs/Day Years [...] Medical Devices Not on file Care Teams Lathe Turner Relationship Specialty Start Date End Date Cristiano De Leon DO PCP - General 03/22/13
--- OUTSIDE RECORDS SUMMARY | 2025-05-26 18:58 | XMS_ITS | Encounter Summary ---
Author Organization [facility] Address [address] [place] [address] Care Team Providers Care President Finance Company Name Role Phone Vick Maxwell MD Unavailable [phone] Cristiano CARBONE Primary Care Provider + Source Comments In the event this information is protected by the Federal Confidentiality of Alcohol and Drug AbusePatient Records regulations: The Federal rules restrict any use of the information to criminally investigate or prosecute any alcohol or drug abuse patient.[facility] Encounter Details Date Type Department Care Team (Late st Contact Info) Description 09/17/2022 Patient Msg [facility] [place] [address] [phone] Provider, [facility] Surgical Education: PLEASE READ Social [...] N ot on file 08/28/2022 Data from: https://www.neighborhoodatlas.[facility]/. Last address used for calculation Angelina [...] PM SISSY Lucero Do n K * Are you blind or do you have serious difficulty seeing, even when wearing glasses? Answer Date of Assessment Author No 06/30/2017 1:40 PM SISSY Lucero Do n K * Do you have serious difficulty walking or climbing stairs? Answer Date of Assessment Author No 06/30/2017 1:40 PM SISSY Lucero Do n K * Do you have difficulty dressing or bathing? Answer Date of Assessment Author No 06/30/2017 1:40 PM [place] on K * Because of a physical, mental, [...] on filedocumented in this encounter Care Teams President Finance Company Relationship Specialty Start Date End Date Cristiano De Leon Sr., DO [address] [place] [address] PCP - General Family Medicine 12/02/21 Vick Maxwell MD [address] [place] [address] Referring Pain Management 12/02/21 documented as of this encounter
--- OUTSIDE RECORDS SUMMARY | 2025-05-26 18:58 | XMS_ITS | Encounter Summary ---
Author Organization [facility] Address [address] [place] [address] Care Team Providers Care Communication Clerk Name Role Phone Unavailable Primary Care Provider Unavailabl e Encounter Details Date Type Department Care Team (Late Contact Info) Description 12/31/2024 Results Follow-Up [facility] [address] [place] [phone] Jeison Power MD [address] [place] [address] [phone] MR lumbar spine wo contrast Social History [...] Clinical Support [facility] [address] [facility] [address] [place] [address] Jeison Power MD [address] [place] [phone] documented as of this encounter Visit Diagnoses Not on filedocumented in this encounter
--- OUTSIDE RECORDS SUMMARY | 2025-05-26 18:58 | XMS_ITS | Encounter Summary ---
Author Organization [facility] Address [address] [place] [address] Care Team Providers Care Marble Coper Name Role Phone Vick Maxwell MD Unavailable [phone] [place] [address] Sr., Cristiano CARBONE Primary Care Provider + Source Comments In the event this information is protected by the Federal Confidentiality of Alcohol and Drug AbusePatient Records regulations: The Federal rules restrict any use of the information to criminally investigate or prosecute any alcohol or drug abuse patient.[facility] Encounter Details Date Type Department Care Team (Late st Contact Info) Description 01/05/2022 Patient Msg Neurology [address] [phone] Provider, [facility] Imaging Order Social History Tobacco [...] N ot on file 01/01/2022 Data from: https://www.neighborhoodatlas.[facility]/. Last address used for calculation Angelina [...] on filedocumented in this encounter Care Teams Marble Coper Relationship Specialty Start Date End Date Cristiano De Leon Sr., DO [address] [place] [address] PCP - General Family Medicine 12/02/21 Vick Maxwell MD [address] [place] [address] Referring Pain Management 12/02/21 documented as of this encounter
--- OUTSIDE RECORDS SUMMARY | 2025-05-26 18:58 | XMS_ITS | Clinical Summary ---
Author Organization [facility] Address [address], [address] [place] [address] Care Team Providers Care Motion Picture Camera Lens Technician Name Role Phone Unavailable Primary Care Provider Unavailabl e Allergies No known active allergies Medications omeprazole [...] 04/29/2020 Other senior living (current) drug therapy 0 Pain syndrome, chronic 04/29/2020 Chest pain, unspecified 04/29/2020 Essential hypertension 04/25/2020 Smoker 06/30/2017 Overview (10/27/2020): Added secondary to documentation in Social History. COPD (chronic obstructive pulmonary disease) Encounters Date Type Department Care Team Description 05/22/2025 12:35 PM EDT - 05/24/2025 11:59 PM EDT Hospital Encounter [facility] CT Scan [address] [place] [address] Cubital tunnel syndrome of both upper extremities; Cervical radiculopathy; Cervical spinal stenosis Discharge Disposition: Home or Self Care 05/22/2025 12:34 PM EDT - 05/24/2025 11:59 PM EDT Hospital Encounter [facility] Special Procedures [address] [place] [address] Radiologist, Stv Interventional Cubital tunnel syndrome of both upper extremities; Cervical radiculopathy; Cervical spinal stenosis Discharge Disposition: Home or Self Care 05/07/2025 Telephone [facility] Neurosurgery [address] [place] [address], [address] [place] [address] Prem Fontanez MD Orders (Cervical myelogram CT order wanted) 04/17/2025 Telephone [facility], [facility] Neurosurgery [address] [place] [address], [address] [place] [address] Mady Clay PA Patient update [...] = 0.6 oz pur e alcohol) occas [facility] Utilities Answer Date Recorded In the past 12 months has th e [employer], gas, oil, or water [employer] threatened to shut off services in your [...] detention (including now)? No 10/11/2023 Interpersonal Safety ([facility] HRSN) Answer Date Recorded How often [...] EDT Inhaled Oxygen Concentration - - Weight 55.3 kg (122 lb) 01/14/2025 2:59 PM EDT Height 170.2 cm (5' 7 ) 01/14/2025 2:59 PM EDT Body Mass Index 19.11 01/14/2025 2:59 PM EDT Plan of Treatment Upcoming Encounters Date Type Department Care Team (Latest Contact Info) Description 06/03/2025 3:15 PM EDT Initial consult [facility] Pain Management [address] [place] [address] Felix Camarena, [address] [place] [address] M54.16 (ICD-10-CM) - Radiculopathy, lumbar region 06/19/2025 11:50 AM EST Office Visit [facility] Neuroscience [place], [facility] Neurosurgery [address] [place] [address], [address] [place] [address] Prem Fontanez MD [address] [facility] [address] [place] [id number] f/u after CT Cervical Myelogram Health Maintenance Due Date Last Done Comments Depression Monitoring 1985 HIV screen 1988 Hepatitis C screen 1991 Hepatitis B vaccine (1 of 3 - 19+ 3-dose series) 1992 Pneumococcal 50+ years Vacci ne (1 of 2 - PCV) 1992 Breast cancer screen 2013 Lipids 2013 Colonoscopy 2018 Colorectal Cancer Screen 2018 FIT/FOBT: Average risk 2018 Fecal-DNA (Cologuard): [place] ge risk 2018 Sigmoidoscopy/CT colonography 2018 Shingles [...] this topic Medical Devices Implanted Type Area Lining Inserter Device Identifier Shelf Expiration Date Model / Serial / Lot Graft Bne Sub 15ml 1.7-10mm Canc Chip Morselized Frz Dry - [id number] Implanted:Qty: 1 on 12/30/2020 by Bib Vincent MD at [facility] N/A: Spine Lumbar [employer]- 07/01/2023 [id number] / [id number] / Graft Bne Sub 15ml 1.7-10mm Canc Chip Morselized Frz Dry - [id number] Implanted:Qty: 1 on 12/30/2020 by Bib Vincent MD at [facility] N/A: Spine Lumbar [employer]- 07/01/2023 [id number] / [id number] / Kit Bne Grft Sm Rhbmp-2 4.2mg Inj 5ml Contain Ndl 20ga Implanted:Qty: 1 on 12/30/2020 by Bib Vincent MD at [facility] N/A: Spine Lumbar [employer]- 05/15/2021 [id number] / / [id number] Spacer Spnl [id number] 4deg L Peek Post Lum Intbdy Fus Implanted:Qty: 2 on 12/30/2020 by Bib Vincent MD at [facility] N/A: Spine Lumbar [employer]WD [id number] / / Connector Spnl Crss Lo Prof Adj Reline-O 5.5 X 45-65 Mm Implanted:Qty: 1 on 12/30/2020 by Bbi Vincent MD at [facility] N/A: Spine Lumbar [employer] [id number] / / Screw Spnl L55mm Od6mm 2s Polyax Reline O Implanted:Qty: 6 on 12/30/2020 by Bib Vincent MD at [facility] N/A: Spine Lumbar [employer] [id number] / / Screw Spnl Dia5.5mm Opn Tulip Deborah Reline Implanted:Qty: 6 on 12/30/2020 by Bib Vincent MD at [facility] N/A: Spine Lumbar [employer] [id number] / / Seven Spnl Lordtc 5.5x80 Mm Ti Reline-O Implanted:Qty: 2 on 12/30/2020 by Bib Vincent MD at [facility] N/A: Spine Lumbar [employer] [id number] / / Top Clsr Dia55 6mm Std For Thorlum Sacroiliac Fix Sys - [id number] Implanted:Qty: 6 on 10/11/2023 by Prem Fontanez MD at [facility] N/A: Spine Lumbar [employer] [id number] / / Seven Spnl Crv 5.5x75 Mm Prebent Ti Vitality - [id number] Implanted:Qty: 1 on 10/11/2023 by Prem Fontanez MD at [facility] N/A: Spine Lumbar [employer] [id number] / / Seven Spnl Crv 5.5x85 Mm Prebent Ti Vitality - [id number] Implanted:Qty: 1 on 10/11/2023 by Prem Fontanez MD at [facility] N/A: Spine Lumbar [employer] [id number] / / Screw Spnl L55mm Dia6.5mm Polyax Thorlum Sacroiliac Vitality - [id number] Implanted:Qty: 6 on 10/11/2023 by Prem Fontanez MD at [facility] N/A: Spine Lumbar [employer] [id number] / / Graft Bne Sub 15gm Grn Ca Compnd Ptty And Silicate Base Inj - [id number] Implanted:Qty: 1 on 10/11/2023 by Prem Fontanez MD at [facility] N/A: Spine Lumbar [employer]-WD 02/21/2026 [id number] / / [id number] Procedures Procedure Name Priority Date/Time Associated Diagnosis Comments CT CERVICAL SPINE W CONTRAST Routine 05/22/2025 2:32 PM EDT Cubital tunnel syndrome of both upper extremities Cervical radiculopathy Cervical spinal stenosis IR MYELOGRAM CERVICAL Routine 05/22/2025 2:28 PM EDT Cubital tunnel syndrome of both upper extremities Cervical radiculopathy Cervical spinal stenosis APTT STAT 05/22/2025 1:49 PM EDT PROTIME-INR STAT 05/22/2025 1:49 PM EDT PLATELET COUNT STAT 05/22/2025 1:[address] CHEST WO CONTRAST Routine 08/04/2022 from Last 3 Months or Most Recently Relevant to Health Maintenance Results * CT CERVICAL SPINE W CONTRAST [...] MD IMG CT ORDERABLES Final Resu lt * IR MYELOGRAM CERVICAL (05/22/2025 2:28 PM [...] 0.76 Gy cm 2 Views: 6 PROCEDURE: STONE FINISHER: James Phillips This procedure was performed by [...] 0.76 Gy cm 2 Views: 6 PROCEDURE: STONE FINISHER: James Phillips This procedure was performed by [...] Successful fluoroscopic cervical myelogram. Prem Fontanez MD [facility] IR ORDERABLES Final Resu lt * APTT (05/22/2025 1:49 PM EDT) APTT 26.5 23.0 - 36.5 sec 05/22/2025 1:49 PM EDT [employer] Comment: IV Heparin Therapy Range: 66.0-92.0 sec 05/22/2025 1:49 PM EDT 05/22/2025 1:49 PM EDT James ANAND HEMATOLOGY ORDERABLES Final Resu lt [facility] [place] [address], [facility] [phone] * Protime-INR (05/22/2025 1:49 PM EDT) Protime 12.2 11.7 - 14.9 sec 05/22/2025 1:49 PM EDT [facility] INR 0.9 05/22/2025 1:49 PM EDT [facility] Comment: Therapeutic Range: Moderate Anticoagulant Intensity: INR = 2.0-3.0 High Anticoagulant Intensity: INR = 2.5-3.5 05/22/2025 1:49 PM EDT 05/22/2025 1:49 PM EDT James Phillips PA HEMATOLOGY ORDERABLES Final Resu lt Performing Organization Address [facility]/ZIP Co de Phone Number [facility] [address] [place] [address], [facility] [phone] * (ABNORMAL) Platelet count (05/22/2025 1:49 PM EDT) Platelets 468(H) 138 - 453 k/uL 05/22/2025 1:49 PM EDT [facility] 05/22/2025 1:49 PM EDT 05/22/2025 1:49 PM EDT James Phillips PA HEMATOLOGY ORDERABLES Final Resu lt Performing Organization Address [facility] de Phone Number [facility] [address] [place] [address], [facility] [phone] * CT CHEST WO CONTRAST (08/04/2022) Anatomical Region Laterality Modality Chest Computed Tomogra phy [facility] Historical Provider IMG CT ORDERABLES Final Result from Last 3 Months or Most Recently Relevant to Health Maintenance Insurance [facility] Member Subscriber Plan / Payer ( fective 2016-Present) Name:Pedro LuisMacie thomas Sandy Relation to Subscriber:Self Name:Macie Cloud Payer ID:[id number] (NAIC) Group ID:[id number] Type:Not on file Address: [place] [id number] Member Subscriber Plan / Payer ( fective 2016-Present) Name:Pedro LuisMacie thomas Sandy Relation to Subscriber:Self Name:Macie Cloud Payer ID:[id number] (NAIC) Group ID:[id number] Type:Not on file Address: [place] [id number] Advance Directives * Full Code (Latest Code [...]
--- OUTSIDE RECORDS SUMMARY | 2025-05-26 18:58 | XMS_ITS | Encounter Summary ---
Author Organization [facility] Address [address] [place] [address] Care Team Providers Care Hand Outside Cutter Name Role Phone Vick Maxwell MD Unavailable [phone] Cristiano CARBONE Primary Care Provider + Source Comments In the event this information is protected by the Federal Confidentiality of Alcohol and Drug AbusePatient Records regulations: The Federal rules restrict any use of the information to criminally investigate or prosecute any alcohol or drug abuse patient.[facility] Encounter Details Date Type Department Care Team (Late st Contact Info) Description 09/17/2022 Patient Msg Spine [place] [address] [place] [phone] Provider, Ccf Information for Your Spine Surgery [...] on file 08/28/2022 Data from: https://www.neighborhoodatlas.[facility]/. Last address used for calculation Angelina OLMSTEAD [...] on filedocumented in this encounter Care Teams Hand Outside Cutter Relationship Specialty Start Date End Date Cristiano De Leon Sr., DO [address] [place] [address] PCP - General Family Medicine 12/02/21 Vick Maxwell MD [address] [place] [address] Referring Pain Management 12/02/21 documented as of this encounter
--- OUTSIDE RECORDS SUMMARY | 2025-05-26 18:58 | XMS_ITS | Clinical Summary ---
Author Organization [facility] Address [address] [place] [address] Care Team Providers Care Sewer Bricklayer Name Role Phone Vick Maxwell MD Unavailable [phone] [facility]., Cristiano CARBONE Primary Care Provider + [...] ot on file 08/28/2022 Data from: https://www.neighborhoodatlas.medicine.[facility]/. Last address used for calculation [address] 08/28/2022 Comments No Sex and Gender [...] METABOLIC PANEL (12/02/2020 2:05 PM EDT) Pathologist [facility] Protein, Total 6.7 6.3 - 8.0 g/dL 12/02/2020 2:32 PM EDT [facility] Albumin 4.4 3.9 - 4.9 g/dL 12/02/2020 2:32 PM EDT [facility] Calcium 9.3 8.5 - 10.2 mg/dL 12/02/2020 2:32 PM EDT [facility] Bilirubin, Total <0.2(L) 0.2 - 1.3 mg/dL 12/02/2020 2:32 PM EDT [facility] Alkaline Phosphatase 94 34 - 123 U/L 12/02/2020 2:32 PM EDT [facility] AST 18 13 - 35 U/L 12/02/2020 2:32 PM EDT [facility] Glucose 123(H) 74 - 99 mg/dL 12/02/2020 2:32 PM EDT [facility] Comment: The [place] Diabetes Association (ADA) provides guidance for cutoff [...] Standards of Medical Care in Diabetes 2016, [place] Diabetes Association. Diabetes Care. 2016.39(Suppl 1). BUN 7 7 - 21 mg/dL 12/02/2020 2:32 PM EDT [facility] Creatinine 0.67 0.58 - 0.96 mg/dL 12/02/2020 2:32 PM EDT [facility] Sodium 135(L) 136 - 144 mmol/L 12/02/2020 2:32 PM EDT [facility] Potassium 4.2 3.7 - 5.1 mmol/L 12/02/2020 2:32 PM EDT [facility] Chloride 100 97 - 105 mmol/L 12/02/2020 2:32 PM EDT [facility] CO2 27 22 - 30 mmol/L 12/02/2020 2:32 PM EDT [facility] Anion Gap 8(L) 9 - 18 mmol/L 12/02/2020 2:32 PM EDT [facility] ALT 13 7 - 38 U/L 12/02/2020 2:32 PM EDT [facility] eGFR- >60 12/02/2020 2:32 PM EDT [facility] eGFR-All Other Races >60 . 12/02/2020 2:32 PM [facility] Comment: eGFR (Estimated GFR) Units of measure: [...] LABORATORY Final Re sult Performing Organization Address [facility] Co de Phone Number [address] [address] [facility] Cancer [address] * FECAL OCCULT BLOOD TEST (11/13/2020 8:01 AM EDT) Occult Blood, Stool Negative Negative 11/18/2020 12:55 PM EDT [facility] Comment: This test was developed and its performance characteristics determined by [facility]'s [facility] Pathology and Laboratory Medicine [place] ([facility]). It has not been cleared or approved by the FDA. [facility] is regulated under CLIA as qualified to perform high complexity testing. This test is used for clinical purposes. It should not be regarded as investigational or for research. Stool Random STOOL SPECIMEN / Unknown 11/13/2020 8:01 AM EDT 11/18/2020 8:01 AM EDT Prem Cerna MD LABORATORY Final Re sult Performing Organization Address City/[facility]/ZIP Co de Phone Number [facility] [address] [facility] [place] [address] [facility] [address] [place] [address] from Last 3 Months or Most Recently Relevant to Health Maintenance Insurance [employer] Member Subscriber Plan / Payer (Ef fective 2016-Present) Name:Macie Cloud Relation to Subscriber:Self Name:Macie Cloud Payer ID:[id number] (NAIC) Group ID:[id number] Type:Medicaid Address: [place] [id number] Care Teams Sewer Bricklayer Relationship Specialty Start Date End Date Cristiano De Leon Sr., [address] [place] [address] PCP - General Family Medicine 12/02/21 Vick Maxwell MD [address] [place] [address] Referring Pain Management 12/02/21
--- OUTSIDE RECORDS SUMMARY | 2025-05-26 18:58 | XMS_ITS | Encounter Summary ---
Author Organization [facility] Address [address] [facility] [address] [place] [address] Care Team Providers Care Gas Distribution And Emergency Clerk Name Role Phone Unavailable Primary Care [...] 06/20/2025 1:00 PM EST Clinical Support [facility] [address] [facility] [address] [place] [address] Jeison Power MD [address] [place] [address] documented as of this encounter Visit Diagnoses Not on filedocumented in this encounter
--- OUTSIDE RECORDS SUMMARY | 2025-05-26 18:58 | XMS_ITS | Encounter Summary ---
Author Organization [facility] Address [address], [address] [place] [address] Care Team Providers Care Fashion Design Professor Name Role Phone House Sr., Cristiano CARBONE Primary Care Provider + Encounter Details Date Type Department Care Team (Late st Contact Info) Description 01/14/2025 Orders Only [facility], [facility] Neurosurgery [address] [facility], [address] [place] [id number] Provider, MD Chandni Social History Tobacco Use Types Packs/Day Years Used Date Smoking Tobacco: Every Day Cigarettes 1.5 39.8 Started: 08/15/1985 Smokeless Tobacco: Current Alcohol Use Standard Drinks/Week Comments Yes 5 (1 standard drink = 0.6 oz pur e alcohol) occas [facility] Utilities Answer Date Recorded In the past 12 months has [employer], gas, oil, or water [employer] threatened to shut off services in your [...] place to sleep or slept in a chcf (including now)? No 10/11/2023 Interpersonal Safety ([facility] HRSN) Answer Date Recorded How often [...] Description 06/03/2025 3:15 PM EDT Initial consult [facility] Pain Management [address] [place] [address] Felix Camarena DO [address] [place] [address] M54.16 (ICD-10-CM) - Radiculopathy, lumbar region 06/19/2025 11:50 AM EST Office Visit [facility] Neuroscience [place], [facility] [address] [place] [address], [address] [place] [address] Prem Fontanez MD [address] [place] [address] f/u after CT Cervical Myelogram documented as [...] on filedocumented in this encounter Care Teams Fashion Design Professor Relationship Specialty Start Date End Date Cristiano De Leon Sr., DO [address] [place] [address] PCP - General Family Medicine 07/20/23 05/21/25 documented as of this encounter
--- OUTSIDE RECORDS SUMMARY | 2025-05-26 18:58 | XMS_ITS | Encounter Summary ---
Author Organization [facility] Address [address] [place] [address] Care Team Providers Care Heat Curer Name Role Phone Vick Maxwell MD Unavailable [phone] Cristiano CARBONE Primary Care Provider + Source Comments In the event this information is protected by the Federal Confidentiality of Alcohol and Drug AbusePatient Records regulations: The Federal rules restrict any use of the information to criminally investigate or prosecute any alcohol or drug abuse patient.[facility] Encounter Details Date Type Department Care Team (Late st Contact Info) Description 09/17/2022 Patient Msg Spine [place] [address] [place] [phone] Provider, Selina JACKSON for Surgical Success: Please [...] ot on file 08/28/2022 Data from: https://www.neighborhoodatlas.[facility]/. Last address used for calculation Angelina [...] on filedocumented in this encounter Care Teams Heat Curer Relationship Specialty Start Date End Date Cristiano De Leon Sr., DO [address] [place] [address] PCP - General Family Medicine 12/02/21 Vick Maxwell MD [address] [place] [address] Referring Pain Management 12/02/21 documented as of this encounter
--- OUTSIDE RECORDS SUMMARY | 2025-05-26 18:58 | XMS_ITS | Encounter Summary ---
Author Organization [facility] Address [address] [place] [address] Care Team Providers Care Saw Maker Name Role Phone Vick Maxwell MD Unavailable [phone] Cristiano CARBONE Primary Care Provider + Source Comments In the event this information is protected by the Federal Confidentiality of Alcohol and Drug AbusePatient Records regulations: The Federal rules restrict any use of the information to criminally investigate or prosecute any alcohol or drug abuse patient.[facility] Encounter Details Date Type Department Care Team (Late st Contact Info) Description 09/14/2022 Get Medical Advice [facility] [address] [place] [address] Too Hughes MD [address] [place] [address] Surgery Social History Tobacco Use [...] N ot on file 08/28/2022 Data from: https://www.neighborhoodatlas.medicine.[facility]/. Last address used for calculation Angelina [...] on filedocumented in this encounter Care Teams Saw Maker Relationship Specialty Start Date End Date Cristiano De Leon Sr., [address] [place] [address] PCP - General Family Medicine 12/02/21 Vick Maxwell MD [address] [place] [address] Referring Pain Management 12/02/21 documented as of this encounter
--- OUTSIDE RECORDS SUMMARY | 2025-05-26 18:58 | XMS_ITS | Clinical Summary ---
Author Organization [facility] Address [address] [place] [address] Care Team Providers Care Plastic Tile Setter Name Role Phone Unavailable Primary Care [...] evening and 800 mg before bedtime. Active lisinopril-hydroC HLOROthiazide 20-12.5 MG tablet 07/22/20 23 Active metroNIDAZOLE [...] BEDTIME NEEDED Active albuterol HFA 90 mcg/act inhalerIndication s:Inspiratory pain,Closed fracture of multiple ribs of left side, initial encounter Inhale 2 puffs every 4 (four) hours if needed for wheezing or shortness of breath 18 g 05/22/20 24 Active atomoxetine (Strattera) 60 MG capsuleIndication s:ADD (attention deficit disorder) without hyperactivity Take 1 capsule (60 mg) by mouth Daily Swallow capsule whole; do not open. If opened accidentally, do not touch eyes; wash hands immediately (product is an eye irritant). 90 capsule 3 10/20/19 25 026 Active diazePAM (Valium) 5 MG tabletIndications :Claustrophobia Take 1 tablet (5 mg) by mouth 1 (one) time if needed for anxiety (1 po 30 minutes prior to MRI and may repeat x 1) for up to 2 doses 2 tablet 11/21/19 25 Active LORazepam (Ativan) 0.5 MG tabletIndications :Claustrophobia Take 1 tablet (0.5 mg) by mouth every 12 (twelve) hours if needed for anxiety for up to 1 day 2 tablet 12/26/19 25 Active cyclobenzaprine (Flexeril) 10 MG tabletIndications :Status post lumbar spinal fusion Take 1 tablet (10 mg) by mouth in the morning and 1 tablet (10 mg) in the evening and 1 tablet (10 mg) before bedtime. 90 tablet 2 04/25/20 25 025 Active doxycycline (Vibramycin) 100 MG capsuleIndication s:Acute recurrent maxillary sinusitis,Acute bronchitis, unspecified organism Take 1 capsule (100 mg) by mouth in the morning and 1 capsule (100 mg) before bedtime. Do all this for 10 days. Take with at least 8 ounces (large glass) of water, do not lie down for 30 minutes after. 20 capsule 05/19/20 25 025 Active Active Problems Problem Noted Date Diagnosed [...] director long term care (current) drug therapy 0 Essential hypertension 04/25/2020 COPD (chronic obstructive pulmonary disease) Current smoker 06/30/2017 Overview (10/24/2024): Added secondary to documentation in Social History. Encounters Date Type Department Care Team Description 05/23/2025 Telephone [facility] [address] [place] [address] Lalito Og DO 05/19/2025 12:45 PM EDT Office Visit [facility] [address] [place] [address] Lalito Crum DO Acute recurrent maxillary sinusitis (Primary Dx); Acute bronchitis, unspecified organism 05/19/2025 Travel 05/09/2025 Telephone [facility] [address] [place] [address] Maryjane Duong RT. R 05/06/2025 3:00 PM EDT Ancillary Procedure [facility] [address] [place] [address] Shortness of breath 05/06/2025 Travel 04/30/2025 Telephone [facility] [address] [place] [address] Shana Kelsey R. EEG. T. 04/25/2025 10:00 AM EDT Clinical Support [facility] [address] [place] [address] Jeison Power MD Other nerve root and plexus disorders (Primary Dx); Status post lumbar spinal fusion; Myalgia 04/25/2025 Bamboo flowsheet [facility] [address] [place] [address] Jeison Power MD 04/25/2025 Travel 04/08/2025 2:30 PM EDT Ancillary Procedure [facility] [address] [place] [address] Chest pain, unspecified 04/08/2025 Travel 03/27/2025 2:15 PM EDT Ancillary Procedure [facility] [address] [place] [address] Shortness of breath 03/27/2025 Travel from Last [...] Neurology [address] [place] [address] Jeison Power MD [address] [facility] [address] [place], [place] [address] Procedures Procedure Name Priority Date/Time Associated Diagnosis [...]
--- OUTSIDE RECORDS SUMMARY | 2025-05-26 18:58 | XMS_ITS | Encounter Summary ---
Author Organization [facility] Address [address] [place] [address] Care Team Providers Care Receipt And Report Clerk Name Role Phone Vick Maxwell MD Unavailable [phone] Cristiano CARBONE Primary Care Provider + Source Comments In the event this information is protected by the Federal Confidentiality of Alcohol and Drug AbusePatient Records regulations: The Federal rules restrict any use of the information to criminally investigate or prosecute any alcohol or drug abuse patient.[facility] Encounter Details Date Type Department Care Team (Late st Contact Info) Description 09/17/2022 Patient Msg Spine [place] [address] [phone] Provider, [facility] Advance Directives Social History Tobacco [...] N ot on file 08/28/2022 Data from: [email or web address] Last address used for calculation [...] on filedocumented in this encounter Care Teams Receipt And Report Clerk Relationship Specialty Start Date End Date Cristiano De Leon Sr., DO [address] [place] [address] PCP - General Family Medicine 12/02/21 Vick Maxwell MD [address] [place] [address] Referring Pain Management 12/02/21 documented as of this encounter
--- OUTSIDE RECORDS SUMMARY | 2025-05-26 18:58 | XMS_ITS | Encounter Summary ---
Author Organization [facility] Address [address] [place] [address] Care Team Providers Care Freight Solicitor Name Role Phone [address] Sr., Cristiano CARBONE Primary Care Provider + Vick Maxwell MD Unavailable [phone] Cristiano CARBONE Primary Care Provider + Source Comments In the event this information is protected by the Federal Confidentiality of Alcohol and Drug AbusePatient Records regulations: The Federal rules restrict any use of the information to criminally investigate or prosecute any alcohol or drug abuse patient.[facility] Encounter Details Date Type Department [...] on filedocumented in this encounter Care Teams Freight Solicitor Relationship Specialty Start Date End Date Cristiano De Leon Sr., DO PCP - General 08/19/06 12/01/21 Cristiano De Leon Sr., DO [address] [place] [address] PCP - General Family Medicine 12/02/21 Vick Maxwell MD [address] [place] [address] Referring Pain Management 12/02/21 documented as of this encounter
--- OUTSIDE RECORDS SUMMARY | 2025-05-26 18:58 | XMS_ITS | Encounter Summary ---
Author Organization [facility] Address [address] [place] [address] Care Team Providers Care Developer Relations Manager Name Role Phone Unavailable Primary Care Provider Unavailabl e Encounter Details Date Type Department Care Team (Late st Contact Info) Description 05/23/2025 Telephone [facility] [place] [facility] [address] [place] [address] Lalito Og DO [address] [place] [address] Social History Tobacco Use Types Packs/Day Years [...] encounter Miscellaneous Notes * Telephone Encounter - Laura Varner - 05/23/2025 1:28 PM EDT Email MELISA [email or web address] Private once we have that back we will schedule her appt documented in this encounter Plan of Treatment Upcoming Encounters Date Type Department Care Team (Late st Contact Info) Description 06/20/2025 1:00 PM EST Clinical Support [facility] [address] [facility] [address] [place] [address] Jeison Power MD [address] [facility] [address] [place] [address] [phone] documented as of this encounter Visit Diagnoses Not on filedocumented in this encounter
--- OUTSIDE RECORDS SUMMARY | 2025-05-26 18:58 | XMS_ITS | Encounter Summary ---
Author Organization [facility] Address [address] [place] [address] Care Team Providers Care Glove Finisher Name Role Phone Unavailable Primary Care Provider Unavailabl e Encounter Details Date Type Department Care Team (Late Contact Info) Description 12/29/2024 External Result Encounter [facility] External Department Unsolicited Jeison Power MD [address] [place] [address] [phone] Social History Tobacco Use Types Packs/Day Years [...] 06/20/2025 1:00 PM EST Clinical Support [facility] [address] [place] [address] Jeison Power MD [address], [place] [phone] documented as of this encounter Procedures Procedure [...] Dominguez M.D. 12/29/2024 12:35 PM Dictation Location: [facility] Transcribed By: [facility] 12/29/24 1235 Dictated By: Isaac Dominguez DO 12/29/24 1220 Signed By: <Electronically signed by Isaac Dominguez DO in [place]> 12/29/24 1235 Narrative 12/29/2024 12:38 PM EDT [facility] Main [place] [address] [place] [address] MRI Report Signed Patient: Macie Cloud MR#: [id number] : 1975 Acct:[id number] Age/Sex: 49 / F ADM Date: 12/29/24 Loc: Room: Type: [facility] Attending Dr: Jeison Power MD Copies to: Jeison Power MD Ordering Provider: Jeison Power MD Date of Service: 12/29/24 MR/MR lumbar spine wo/w con: M54.16, M47.816 ([id number]) XR/XR pre/post mri xray: M47.816, M54.16 MRI [...] con Procedure Note Radiology, Radiologist, - 12/29/2024 [facility] Main [place] [address] [place] [address] MRI Report Signed Patient: Macie Cloud [facility]#: [id number] : 1975Acct:[id number] Age/Sex: 49 / FADM Date: 12/29/24 Loc: Room:Type: [facility] Attending Dr: Jeison Power MD Copies to: Jeison Power MD Ordering Provider: Jeison Power MD Date of Service: 12/29/24 MR/MR lumbar spine wo/w con: M54.16, M47.816 ([id number]) XR/XR pre/post mri xray: M47.816, M54.16 MRI [...] Dominguez M.D. 12/29/2024 12:35 PM Dictation Location: [facility] Transcribed By: [facility] 12/29/24 1235 Dictated By: Isaac Dominguez DO 12/29/24 1220 Signed By: <Electronically signed by Isaac Dominguez DO in [place]> 12/29/24 1235 Jeison Power MD IMG MRI PROCEDURES Final Resu lt documented in this encounter Visit Diagnoses Not on filedocumented in this encounter
--- OUTSIDE RECORDS SUMMARY | 2025-05-26 18:58 | XMS_ITS | CCD ---
Author Organization [facility] Care Team Providers Care Senior Net Developer Name Role Phone House, Sr Cristiano Barnes Primary Care Provider [place], SR CRISTIANO Barnes Primary Care Unavailable KIM, BIB H. Admitting Unavailable KIM, BIB H. Attending Unavailable [place], CRISTIANO Barnes Primary Care Unavailable LUKE WILKINS Referring Unavailab le [place], CRISTIANO Barnes Primary Care Unavailable KIM, BIB H. Attending Unavailable KIM, BIB H. Referring Unavailable Vick Maxwell MD Unavailable [place] Sr., Cristiano Dockery Primary Care Provider Jak Steele Unavailable [phone] Vick Maxwell Unavailable DO Cristiano Graham Primary Care Provider ZANDER Ulrich Attending Provider [phone] Michel Venegas Unavailable [phone] DO Cristiano Graham Primary Care Provider ZANDER Ulrich Attending Provider DO Cristiano Graham Attending Provider Vick Maxwell MD Unavailable [phone] [place] Sr., Cristiano Dockery Primary Care Provider DO Cristiano Graham Primary Care Provider MD Michel Venegas Attending Provider DAVID COLON Attending Unavailable DAVID COLON Admitting Unavailable DR ERIC HE Consulting Unavailable SANTOS, DR QUINONEZ Primary Care Unavailable DAVID COLON Consulting Unavailable LEE MARTINEZ Consulting Unavailable ALOK COELHO Consulting Unavailable DR ERIC HE Consulting Unavailable HOUSE, DR QUINONEZ Primary Care Unavailable JAMEL HALL Admitting Unavailable ISABEL, JAMEL Attending Unavailable JAMEL HALL Consulting Unavailable HELIO, DR SPRAGUE Admitting Unavailable HOUSE, DR QUINONEZ Primary Care Unavailable HELIO, DR SPRAGUE Consulting Unavailable HAY, DR SPRAGUE Attending Unavailable CRISTIANO GRAHAM Primary Care Unavailable KIKA Alex Attending Unavailable Isai, KIKA Aranda Admitting Unavailable Isai, KIKA Aranda Attending Unavailable Isai, KIKA Aranda Admitting Unavailable CRISTIANO GRAHAM Primary Care Unavailable Santos, DO Quinonez Primary Care Provider [phone] MD Michel Venegas Attending Provider DO Hussain Cristobla Emergency Provider [phone] TOO HUGHES Attending Unavailable HOUSE SR, CRISTIANO [facility] Unajovita GRAHAM SR, CRISTIANO [facility] TOO Walker Referring Unavailable TOO HUGHES Attending Unavailable LEI MARTINEZ Referring Unavailable [place] SR, CRISTIANO [facility] UnaSobeida Wallace Unavailable DO Cristiano Graham Primary Care Provider Eloy Mcdaniel Attending Provider [phone] Cristiano Graham Primary Care Physician [phone] SOBEIDA WHITNEY Referring Unavailable Star Sherman Attending Unavailable Star Sherman Admitting Unavailable NO FAMILY, PHYSICIAN Primary Care Provider Unava ZANDER Bey Emergency Provider DO Cristiano Graham Primary Care Provider Eloy Mcdaniel Attending Provider [phone] NO FAMILY, PHYSICIAN Primary Care Provider Unava ZANDER Bey Emergency Provider [phone] ROXANA Garcia Attending Provider NO FAMILY, PHYSICIAN Primary Care Provider Unava DO Nabil Vega Emergency Provider PREM DING Attending Unavailable HOUSE SR, CRISTIANO Barnes Primary Care Unavailable PREM DING Admitting Unavailable HOUSE SR, CRISTIANO Barnes Primary Care Unavailable LOUKA, PETER Admitting Unavailable LOUKA, PETER Attending Unavailable RIGO IRENE Consulting Unavailable PREM DING Consulting Unavailable HAKAN MOE Consulting Unavailable JORDYN GTZ Consulting Unavaila PREM [place] Referring Unavailable HOUSE SR, CRISTIANO P Primary Care Unavailable [place] Sr., Cristiano Primary Care Provider Unavailable Primary Care Provider Unavailabl e NO FAMILY, PHYSICIAN Primary Care Provider Unava ilable Hussain Cristobal DO Emergency Provider NO FAMILY, PHYSICIAN Primary Care Provider Unava ilable Tono BONILLA, Lora Castellanos Attending Provider NON STAFF Primary Care Provider Unavailloni e Lee Pichardo DO Admit Provider [phone] Patrica Pfeiffer MD Other Provider Jomar Suárez MD Other Provider Yamil Bryant DO Other Provider Lee Ignacio MD Other Provider Rei Maya DO Attending Provider Rei Maya DO Other Provider [phone] Rosi Pena APRN Other Provider Doris Pope DO Other Provider [phone] Davion Hair DO Other Provider Robert Rodriguez DO Other Provider Jamel Loaiza MD Other Provider Yodit Riley DO Attending Provider Lora Power Admitting Unavailable Lora Power Attending Unavailable NO FAMILY, PHYSICIAN Primary Care Unavailable Hussain Cristobal Admitting Unavailable Hussain Cristobal Attending Unavailable NO FAMILY, PHYSICIAN Primary Care Unavailable Patrica Pfeiffer Attending Unavailable NON STAFF Primary Care Unavailable Lee Pichardo Admitting Unavailable Kamini Imavinash Consulting Unavailable Yamil Bryant II Consulting Unavaila Lee Gordon Consulting Unavailable Rei Maya Consulting Unavailable Rosi Pena Consulting Unavailable Doris Pope Consulting Unavailable Davion Hair Consulting Unavailable Robert Rodriguez Consulting Unavailable ONMARQUEZ, CHUKA Referring Unavailable LORA POWER Attending Unavailable LORA POWER Referring Unavailable ONYENEKE, CHUKA Referring Unavailable RIO RAMIREZ Attending Unavailable RIO RAMIREZ Referring Unavailable ONYENEKE, CHUKA Referring Unavailable LORA POWER Attending Unavailable ONITZKIMBERLY, CHUKA Referring Unavailable KATIA LAGOS Attending Unavailable PREM DING Referring Unavailable CRISTIANO GRAHAM SR Primary Care Unavailable PREM DING Referring Unavailable Unavailable Primary Care Provider Unavailabl e Allergies Allergy Classification Reported Allergen(s) Allergy Type Date of Onset Reaction(s) Facility (1 source) No Known Medication Allergies; Translations: [No Known Medication Allergies] Propensity to adverse reactions (disorder) [facility] Repository Medications Current Medications Medication Drug Class(es) Dates Sig (Normalized) Sig (Original) [id number] 200 actuat albuterol 0.09 mg/actuat metered dose inhaler (15 sources) beta2-Adrenergic Agonist Start: 03-17-2025 take 1 [...] under the tongue daily. 0 10/26/2019 Active buprenorphine-na loxone (SUBOXONE) 8-2 [address] film [address] 2.5 Film under the tongue daily. Active Buprenorphine HC l-Naloxone HCl (Suboxone) 8-2 MG SL film DISSOLVE 2.5 films SUBCUTANEOUSLY (UNDER THE SKIN) ONCE DAILY Active take 1 tablet by shruthi th [...] oral tablet (16 sources) Anticholinergic Start: 10-14-19 23 take 1 tablet by mouth every six hours Start: 2020 End: 09-16-2022 take 1 tablet by mouth three times daily as needed for pain Dicyclomine 20 mg tablet Discontinued 20 MG PO Three times daily as needed for pain 2020 1:00am September 16, 2022 10:27am docusate sodium 50 mg / sennosides, group home 8.6 mg oral tablet (3 sources) Start: [...] (postherpetic neuralgia) ([facility]) Apply 2 patches over 12 hours topically [...] Start: 02-24-2021 take [address] [facility] once daily omeprazole 20 mg Cap-DR 20 mg = 1 cap(s), Oral, Daily, # 30 cap(s), Refills(s) 0 Start Date: 02/24/21 Status: Ordered Start: 09-14-2020 omeprazole (NV ILOSEC) 20 MG delayed release capsule 2 capsules Daily 09/14/2020 Active Comment on above: 40 mg. ondansetron (ZOFRAN-ODT) disintegrating tablet 4 mg (1 source) Start: 10-11-19 ondansetron (ZOFRAN-ODT) disintegrating tablet 4 mg QUEtiapine 200 mg oral tablet (11 sources) Atypical Antipsychotic Start: 04-20-20 take 1 tablet by mouth twice daily QUEtiapine (SEROQUEL) 200 MG tablet Take 1 tablet by mouth 2 times daily 04/20/2024 Active rOPINIRole 1 mg oral tablet (20 sources) Nonergot Dopamine Agonist Start: 04-12-20 Start: 12-31-2020 take 1 mg by mouth [...] Start: 09-16-2022 take 1 capsule by mo [facility] three times daily as needed Start: 09-16-2022 take 1 capsule by mo [facility] once daily at bedtime as needed Tizanidine [...] tablet (1 source) Serotonin Reuptake Inhibitor Start: 09-02-20 25 take 1 mg by mouth once daily at bedtime as needed vitamin b12 1 mg/ml injectable solution (20 sources) Vitamin B12 Start: 01-04-20 cyanocobalamin 1000 MCG/ML injection Inject 1 mL into the muscle every 7 days 01/04/2024 Active Start: 01-04-2024 cyanocobalamin 1000 MCG/ML injection Inject [...] at Discharge) take 2 tablets by mo uth every six hours as needed for pain [...] 0, Sleep Start Date: 07/31/19 Status: Ordered take 0.5 tablet by m outh once daily amitriptyline (ELAVIL) 100 MG tablet Take 0.5 tablets by mouth nightly Active amitriptyline (E lavil) 100 MG tablet Take 50 mg by mouth at bedtime Active amitriptyline (E LAVIL) 75 mg tablet [...] on above: take 3 tablets by mo ut daily for 3 days then 2 for [...] 12:00am September 16, 2022 10:28am estrogens, conjugated (group home) 0.625 mg oral tablet (12 sources) Estrogen Start: 05-10-20 End: 06-17-20 take 1 tablet by mouth once daily Conjugated Estrogens (Premarin) 0.625 mg Tablet Discontinued 0.625 MG PO Daily May 10, 2019 12:00am June 17, 2023 8:39pm famotidine (PEPCID) 20 mg in sodium chloride (PF) 0.9 % 10 mL injection (1 source) Start: 10-11-19 24 End: 10-11-19 24 famotidine (PEPCID) 20 mg in sodium chloride [...] syringe (3 sources) Opioid Agonist Start: 10-11-19 End: 10-11-19 HYDROmorphone HCl PF (DILAUDID) injection 0.5 mg [...] hour of each other unless specifically ordered. iopamidol (ISOVUE-M 300) 61 % injection 15 mL (1 source) Start: 05-22-2025 End: 05-22-2025 15 mL, Intrathecal, IMG ONCE PRN, 1 dose, Starting on Tue05/22/25 at 1429, Until Tue05/22/25 at 1430, Other 2 ml ketorolac tromethamine 30 mg/ml cartridge [...] STEPS INIT] Onset: 08-10-2022 Episodic Essential hypertension (11 sources) Essential hypertension; Translations: [Essential (primary) hypertension] [...] rectum] Onset: 03-15-2025 09-16-2022 Episodic Mood disorders (5 sources) Depressive disorder; Translations: [Depression] Onset: 10-27-2020 [...] skilled nursing (current) drug therapy; Translations: [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 THERAPY] Onset: 09-29-2022 Episodic Other connective tissue disease (14 sources) [...] Resolved: 11-26-2021 Chronic Other nervous system disorders (5 sources) Chronic pain syndrome; Translations: [Chronic pain [...] 05-09-2025 05-09-2025 Chronic Other nervous system disorders (1 source) Lesion of ulnar nerve, bilateral upper limbs; Translations: [Lesion of ulnar nerve, bilateral upper limbs] Onset: 05-22-2025 Chronic Other nervous system disorders (3 sources) 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; Translations: [Lesion of ulnar nerve, bilateral upper limbs] 05-23-2025 Chronic Other nervous system disorders (1 source) 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 Chronic Other nervous system disorders (5 sources) [...] current use of drug therapy; Translations: [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] Onset: 04-29-2020 10-27-2020 Unclassified [...] Onset: 11-11-2020 12-22-2020 Episodic Headache; including migraine (11 sources) Headache; Translations: [Headache] Onset: 04-29-2020 10-27-2020 Episodic Malaise and fatigue (11 sources) Asthenia; Translations: [Weakness] Onset: 09-03-2020 10-27-2020 Episodic Nonspecific chest pain (11 sources) Chest pain; Translations: [Chest pain, unspecified] Onset: 04-29-2020 10-27-2020 Episodic Nutritional deficiencies (20 sources) Cobalamin deficiency; Translations: [Deficiency of other specified B group vitamins] Onset: 11-11-2020 12-22-2020 Episodic Other aftercare (10 sources) Long-term current use of drug therapy; Translations: [Other skilled nursing (current) drug therapy] Onset: 04-29-2020 10-27-2020 Episodic Other connective tissue disease (20 sources) History of cervical spine fusion; Translations: [Arthrodesis status] Onset: 10-27-2020 10-27-2020 Episodic Other connective tissue disease (12 sources) Iliopsoas abscess; 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 muscle abscess] Onset: 09-29-2023 09-26-2023 Episodic Other gastrointestinal disorders (5 sources) Heartburn; Translations: [Heartburn] Onset: 10-24-2024 10-26-2019 Episodic Other nervous system disorders (11 sources) Paresthesia; Translations: [Paresthesia of skin] Onset: 09-03-2020 10-27-2020 Episodic Unclassified (1 source) LOW BACK PAIN, UNSPECIFIED; Translations: [LOW BACK PAIN, UNSPECIFIED] Onset: 09-27-2022 Unclassified (2 sources) History of lumbar fusion 09-29-2024 Viral infection (8 sources) Postherpetic neuralgia; Translations: [Other postherpetic nervous system involvement] Onset: 09-27-2024 09-27-2024 Episodic Results Test Name Value Interpretation Reference Range Facility CT CERVICAL SPINE W CONTRAST on 05-23-2025 CT CERVICAL SPINE W CONTRAST EXAMINATION: CT [...] neural foraminal stenosis, worse on the left. IMPRESSION: Degenerative and extensive postoperative changes of the cervical spine. Moderate spinal stenosis and moderate to severe bilateral neural foraminal stenoses C6-C7 and C7-T1. Interpreted by: Pravin Yanes MD Signed by: Pravin Yanes MD 05/23/25 Final result Normal [facility] CT Cervical spine W contrast Zaira 05-23-2025 Degenerative and extensive postoperative changes of the cervical spine. Moderate spinal stenosis and moderate to severe bilateral neural foraminal stenoses C6-C7 and C7-T1. [facility] RIS CONSOLIDATED EXAMINATION: CT OF THE CERVICAL SPINE WITH [...] neural foraminal stenosis, worse on the left. [facility] RIS CONSOLIDATED Pravin Yanes MD - 05/23/2025 EXAMINATION: CT [...] neural foraminal stenosis, worse on the left. IMPRESSION: Degenerative and extensive postoperative changes of the cervical spine. Moderate spinal stenosis and moderate to severe bilateral neural foraminal stenoses C6-C7 and C7-T1[facility] IVOrdered By: Pravin Yanes on 05-23-2025 [facility] Work Phone: APTTon 05-22-2025 aPTT Coag (Bld) [Time] 26.5 s [facility] [employer] Comment on above: IV Heparin Therapy Range: 66.0-92.0 sec aPTT Coag (Bld) [Time] 26.5 s Normal 23.0-36.5 [facility] Comment on above: Result Comment: IV Heparin Therapy Range: 66.0-92.0 sec Performed By: #### P LT, PT, PTT #### [employer] [address] [place] [address] Transaction Manager: Panchito Bishop MD CT Cervical spine W contrast Zaira 05-22-2025 Radiology Study [facility]narrative) [facility] CERVICALon IR MYELOGRAM CERVICAL EXAMINATION: FLUOROSCOPIC CERVICAL MYELOGRAM 05/22/2025: HISTORY: ORDERING SYSTEM PROVIDED HISTORY: Cubital tunnel syndrome of both upper extremities TECHNOLOGIST PROVIDED HISTORY: Is the patient ?->No FLUOROSCOPY DOSE AND TYPE: Fluoro time 1.1 minutes DAP 0.76 Gy cm 2 Views: 6 PROCEDURE: TROUBLE DISPATCHER: James Parekh This procedure was performed by James Parekh PA-C under direct supervision of Dr. Yanes. [...] left the department in stable condition. . IMPRESSION: Successful fluoroscopic cervical myelogram. Interpreted by: Pravin Yanes MD [employer], Jacob, PA Signed by: Pravin Yanes MD 05/22/25 Final result Normal [facility] Successful fluorosco pic cervical myelogram. [facility] RIS CONSOLIDATED EXAMINATION: FLUOROSCOPIC CERVICAL MYELOGRAM 05/22/2025: HISTORY: ORDERING SYSTEM PROVIDED HISTORY: Cubital tunnel syndrome of both upper extremities TECHNOLOGIST PROVIDED HISTORY: Is the patient ?->No FLUOROSCOPY DOSE AND TYPE: Fluoro time 1.1 minutes DAP 0.76 Gy cm 2 Views: 6 PROCEDURE: TROUBLE DISPATCHER: James Parekh This procedure was performed by James Parekh PA-C under direct supervision of Dr. Yanes. [...] left the department in stable condition. . [facility] Pravin Haji MD - 05/22/2025 EXAMINATION: FLUOROSCOPIC CERVICAL MYELOGRAM 05/22/2025: HISTORY: ORDERING SYSTEM PROVIDED HISTORY: Cubital tunnel syndrome of both upper extremities TECHNOLOGIST PROVIDED HISTORY: Is the patient ?->No FLUOROSCOPY DOSE AND TYPE: Fluoro time 1.1 minutes DAP 0.76 Gy cm 2 Views: 6 PROCEDURE: TROUBLE DISPATCHER: James Parekh This procedure was performed by James Parekh PA-C under direct supervision of Dr. Yanes. [...] left the department in stable condition. . IMPRESSION: Successful fluoroscopic cervical myelogram. [facility] Radiology Study observation (narrative) [facility] IR MYELOGRAM CERVICALOrdered By: Pravin Yanes on 05-22-2025 [facility] Work Phone: No Panel Informationon 05-22 [employer] PTon 05-22-2025 INR Coag (PPP) [Relative time] 0.9 {INR} Normal [facility] Comment on above: Result Comment: Therapeutic Range: Moderate Anticoagulant Intensity: INR = 2.0-3.0 High Anticoagulant Intensity: INR = 2.5-3.5 Performed By: #### P LT, PT, PTT #### [facility] [employer] [address] [place] [id number] Transaction Manager: Panchito Bishop MD PT Coag (PPP) [Time] 12.2 s Normal 11.7-14.9 [facility] Comment on above: Performed By: #### P LT, PT, PTT #### [facility] [employer] [address] [place] [id number] Transaction Manager: Panchito Bishop MD Platelet Counton 05-22-2025 Platelets (Bld) [#/Vol] 468 10*3/uL High 138-453 [facility] Comment on above: Performed By: #### P LT, PT, PTT #### [address] [address] Transaction Manager: Panchito Bishop MD Platelet counton 05-22-2025 Interpretation and review of laboratory results Abnormal [facility] [employer] Platelets (Bld) [#/Vol] 468 10*3/uL High [facility] [employer] Protime-INRon 05-22-2025 INR Coag (PPP) [Relative time] 0.9 {INR} [facility] [employer] Comment on above: Therapeutic Range: Moderate Anticoagulant Intensity: INR = 2.0-3.0 High Anticoagulant Intensity: INR = 2.5-3.5 PT Coag (PPP) [Time] 12.2 s [facility] [employer] XR CHEST 2 VIEWSon XR CHEST 2 [...] recommended. ELECTRONICALLY SIGNED BY: Lon Moura DO Normal Not Available XR CHEST 2 [...] MD Normal Not Available Comprehensive Metabolic Pane [facility] 03-20-2025 Albumin [Mass/Vol] 2.9 g/dL Low 3.5-5.7 [facility] Comment on above: Performed By: #### M RSA - MSSA PCR #### [facility] [address] Albumin/Globulin [Mass ratio] 1.0 {ratio} Normal [facility] Comment on above: Performed By: #### M RSA - MSSA PCR #### [facility] [address] ALP [Catalytic activity/Vol] 76 U/L Normal 34-104 [facility] Comment on above: Performed By: #### M RSA - MSSA PCR #### [address] ALT [Catalytic activity/Vol] 18 U/L Normal 7-52 [facility] Comment on above: Performed By: #### M RSA - MSSA PCR #### [address] Anion gap [Moles/Vol] 12.5 mmol/L Normal 6.0-15.0 [facility] Comment on above: Performed By: #### M RSA - MSSA PCR #### [address] AST [Catalytic activity/Vol] 16 U/L Normal 13-39 [facility] Comment on above: Performed By: #### M RSA - MSSA PCR #### [address] Bilirubin [Mass/Vol] 0.2 mg/dL Low 0.3-1.0 [facility] Comment on above: Performed By: #### M RSA - MSSA PCR #### [address] Calcium [Mass/Vol] 8.6 mg/dL Normal 8.6-10.3 [facility] Comment on above: Performed By: #### M RSA - MSSA PCR #### [address] Chloride [Moles/Vol] 98 mmol/L Normal 98-107 [facility] Comment on above: Result Comment: Arturo romel is present at a level that could interfere with the result. Hemolysis is present at a level that could interfere with the result. Performed By: #### M RSA - MSSA PCR #### [address] CO2 [Moles/Vol] 29.1 mmol/L Normal 21.0-31.0 [facility] Comment on above: Performed By: #### M RSA - MSSA PCR #### [address] Creatinine [Mass/Vol] 0.43 mg/dL Low 0.60-1.20 [facility] Comment on above: Performed By: #### M RSA - MSSA PCR #### [place] [address] [place] Creatinine Clr Calc Pharmacy 137.32 Normal [facility] Comment on above: Performed By: #### M RSA - MSSA PCR #### [place] [address] [place] GFR/1.73 sq M.predicted MDRD (S/P/Bld) [Vol rate/Area] mL/min/{1.73_m2} Normal [facility] Comment on above: Performed By: #### M RSA - MSSA PCR #### [address] Globulin (S) [Mass/Vol] 3.0 g/dL Normal T [facility] Comment on above: Performed By: #### M RSA - MSSA PCR #### [address] Glucose [Mass/Vol] 143 mg/dL High 70-100 [facility] Comment on above: Result Comment: [facility] Glucose Reference Range is dependent on time and content of last meal. Glucose of more than 200 mg/dL in a nonstressed, ambulatory subject supports the diagnosis of Diabetes Mellitus. ADA recommended reference range Performed By: #### M RSA - MSSA PCR #### [address] Potassium [Moles/Vol] 3.6 mmol/L Normal 3.5-5.1 [facility] Comment on above: Result Comment: Arturo romel is present at a level that could interfere with the result. Hemolysis is present at a level that could interfere with the result. Performed By: #### M RSA - MSSA PCR #### [address] Protein [Mass/Vol] 5.9 g/dL Low 6.4-8.9 [facility] Comment on above: Performed By: #### M RSA - MSSA PCR #### [address] Sodium [Moles/Vol] 136 mmol/L Normal 136-145 [facility] Comment on above: Result Comment: Arturo romel is present at a level that could interfere with the result. Hemolysis is present at a level that could interfere with the result. Performed By: #### M RSA - MSSA PCR #### [address] Urea nitrogen [Mass/Vol] 4 mg/dL Low 7-25 [facility] Comment on above: Performed By: #### M RSA - MSSA PCR #### [address] Magnesiumon 03-20-2025 Magnesium [Mass/Vol] 1.8 mg/dL Low 1.9-2.7 [facility] Comment on above: Result Comment: PERF ORMED BY: [place] [address] PATHOLOGIST MEAL ROOM HAND REDDY GARNICA M.D. Performed By: #### A BG #### Point of Care testing , Scan and CBCon 03-20-2025 Anisocytosis Ql (Bld) Slight Normal [facility] Comment on above: Performed By: #### C MP, MG #### [address] Basophils (Bld) [#/Vol] 0.0 10*3/uL Normal 0.0-0.2 [facility] Comment on above: Performed By: #### C MP, MG #### [place] [address] [place] Basophils/100 WBC (Bld) 0.1 % Normal . [facility] Comment on above: Performed By: #### C MP, MG #### [address] Eosinophils (Bld) [#/Vol] 0.1 10*3/uL Normal 0.0-0.45 [facility] Comment on above: Performed By: #### C MP, MG #### [address] Eosinophils/100 WBC (Bld) 2.2 % Normal . [facility] Comment on above: Performed By: #### C MP, MG #### [address] Erythrocyte distribution width (RBC) [Ratio] 20.0 % High 11.9-15.3 [facility] Comment on above: Performed By: #### C MP, MG #### [address] Hematocrit (Bld) [Volume fraction] 29.3 % Low 34.0-46.4 [facility] Comment on above: Performed By: #### C MP, MG #### [address] Hemoglobin (Bld) [Mass/Vol] 9.6 g/dL Low 11.8-15.4 [facility] Comment on above: Performed By: #### C MP, MG #### [address] Hypochromasia Moderate Normal [facility] Comment on above: Performed By: #### C MP, MG #### [address] Large Platelets Slight Normal [facility] Comment on above: Result Comment: PERF ORMED BY: [place] [address] PATHOLOGIST MEAL ROOM HAND REDDY GARNICA M.D. Performed By: #### C MP, MG #### [address] Lymphocytes (Bld) [#/Vol] 1.3 10*3/uL Normal 1.00-4.8 [facility] [facility] Comment on above: Performed By: #### C MP, MG #### [address] Lymphocytes/100 WBC (Bld) 21.0 % Normal . [facility] Comment on above: Performed By: #### C MP, MG #### [address] MCH (RBC) [Entitic mass] 27.5 pg Normal 24.7-34.3 [facility] Comment on above: Performed By: #### C MP, MG #### [address] MCV (RBC) [Entitic vol] 83.6 fL Normal 80-100 T [facility] Comment on above: Performed By: #### C MP, MG #### [address] Mean Corpuscular HGB Conc 32.9 g/dL Normal 32.0-35.0 [facility] Comment on above: Performed By: #### C MP, MG #### [address] Monocytes (Bld) [#/Vol] 0.5 10*3/uL Normal 0.0-0.8 [facility] Comment on above: Performed By: #### C MP, MG #### [address] Monocytes/100 WBC (Bld) 8.4 % Normal . [facility] Comment on above: Performed By: #### C MP, MG #### [address] Neutrophils (Bld) [#/Vol] 4.2 10*3/uL Normal 1.8-7.7 [facility] Comment on above: Performed By: #### C MP, MG #### [address] Neutrophils/100 WBC (Bld) 68.3 % Normal . [facility] Comment on above: Performed By: #### C MP, MG #### [address] NRBC% 0.2 /100{WBC} Normal 0-0.5 [facility] Comment on above: Performed By: #### C MP, MG #### [address] Platelet Estimate Normal Normal Normal [facility] Comment on above: Performed By: #### C MP, MG #### [address] Platelet mean volume (Bld) [Entitic vol] 8.0 fL Normal 6.3-10.7 The [facility] Comment on above: Performed By: #### C MP, MG #### [address] Platelets (Bld) [#/Vol] 223 10*3/uL Normal 150-450 [facility] Comment on above: Performed By: #### C MP, MG #### [address] Poikilocytosis Slight Normal The [facility] Comment on above: Performed By: #### C MP, MG #### [address] Polychromasia Slight Normal The [facility] Comment on above: Performed By: #### C MP, MG #### [address] RBC (Bld) [#/Vol] 3.50 10*6/uL Low 3.60-5.00 The [facility] Comment on above: Performed By: #### C MP, MG #### [address] Stomatocytes Slight Normal [facility] Comment on above: Performed By: #### C MP, MG #### [address] Target Cells Slight Normal [facility] Comment on above: Performed By: #### C MP, MG #### [address] Tear Drop Cells Slight Normal [facility] Comment on above: Performed By: #### C MP, MG #### [address] WBC (Bld) [#/Vol] 6.2 10*3/uL Normal 3.8-11.6 [facility] Comment on above: Performed By: #### C MP, MG #### [address] White Blood Count 6.2 [CFU]/mL Normal 3.8-11.6 The [facility] Comment on above: Performed By: #### C MP, MG #### [address] Comprehensive Metabolic Pane vaughn 03-19-2025 Albumin [Mass/Vol] 2.5 g/dL Low 3.5-5.7 [facility] Comment on above: Performed By: #### C MP, MG #### [address] Albumin/Globulin [Mass ratio] 1.1 {ratio} Normal [facility] Comment on above: Performed By: #### C MP, MG #### [address] ALP [Catalytic activity/Vol] 69 U/L Normal 34-104 [facility] Comment on above: Performed By: #### C MP, MG #### [address] ALT [Catalytic activity/Vol] 18 U/L Normal 7-52 [facility] Comment on above: Performed By: #### C MP, MG #### [address] Anion gap [Moles/Vol] 10.7 mmol/L Normal 6.0-15.0 e [facility] Comment on above: Performed By: #### C MP, MG #### [address] AST [Catalytic activity/Vol] 24 U/L Normal 13-39 [facility] Comment on above: Performed By: #### C MP, MG #### [place] [address] [place] Bilirubin [Mass/Vol] 0.3 mg/dL Normal 0.3-1.0 [facility] Comment on above: Performed By: #### C MP, MG #### [address] Calcium [Mass/Vol] 7.8 mg/dL Low 8.6-10.3 [facility] Comment on above: Performed By: #### C MP, MG #### [address] Chloride [Moles/Vol] 100 mmol/L Normal 98-107 [facility] Comment on above: Performed By: #### C MP, MG #### [address] CO2 [Moles/Vol] 32.5 mmol/L High 21.0-31.0 The [facility] Comment on above: Performed By: #### C MP, MG #### [address] Creatinine [Mass/Vol] 0.39 mg/dL Low 0.60-1.20 [facility] Comment on above: Performed By: #### C MP, MG #### [address] Creatinine Clr Calc Pharmacy 155.99 Normal [facility] Comment on above: Performed By: #### C MP, MG #### [address] GFR/1.73 sq M.predicted MDRD (S/P/Bld) [Vol rate/Area] mL/min/{1.73_m2} Normal [facility] Comment on above: Performed By: #### C MP, MG #### [address] Globulin (S) [Mass/Vol] 2.2 g/dL Normal T [facility] Comment on above: Performed By: #### C MP, MG #### [address] Glucose [Mass/Vol] 94 mg/dL Normal 70-100 [facility] Comment on above: Result Comment: [facility] Glucose Reference Range is dependent on time and content of last meal. Glucose of more than 200 mg/dL in a nonstressed, ambulatory subject supports the diagnosis of Diabetes Mellitus. ADA recommended reference range Performed By: #### C MP, MG #### [address] Potassium [Moles/Vol] 3.2 mmol/L Low 3.5-5.1 [facility] Comment on above: Performed By: #### C MP, MG #### [address] Protein [Mass/Vol] 4.7 g/dL Low 6.4-8.9 [facility] Comment on above: Performed By: #### C MP, MG #### [address] Sodium [Moles/Vol] 140 mmol/L Normal 136-145 [facility] Comment on above: Performed By: #### C MP, MG #### [address] Urea nitrogen [Mass/Vol] 5 mg/dL Low 7-25 [facility] Comment on above: Performed By: #### C MP, MG #### [address] Magnesiumon 03-19-2025 Magnesium [Mass/Vol] 1.7 mg/dL Low 1.9-2.7 [facility] Comment on above: Result Comment: PERF ORMED BY: [place] [address] PATHOLOGIST MEAL ROOM HAND REDDY GARNICA M.D. Performed By: #### C MP, MG #### [address] Scan and CBCon 03-19-2025 Anisocytosis Ql (Bld) Slight Normal [facility] Comment on above: Performed By: #### A BG #### Point of Care testing , Basophils (Bld) [#/Vol] 0.0 10*3/uL Normal 0.0-0.2 [facility] Comment on above: Performed By: #### A BG #### Point of Care testing , Basophils/100 WBC (Bld) 0.2 % Normal . T [facility] Comment on above: Performed By: #### A BG #### Point of Care testing , Eosinophils (Bld) [#/Vol] 0.1 10*3/uL Normal 0.0-0.45 [facility] Comment on above: Performed By: #### A BG #### Point of Care testing , Eosinophils/100 WBC (Bld) 0.9 % Normal . [facility] Comment on above: Performed By: #### A BG #### Point of Care testing , Erythrocyte distribution width (RBC) [Ratio] 19.7 % High 11.9-15.3 [facility] Comment on above: Performed By: #### A BG #### Point of Care testing , Hematocrit (Bld) [Volume fraction] 29.0 % Low 34.0-46.4 [facility] Comment on above: Performed By: #### A BG #### Point of Care testing , Hemoglobin (Bld) [Mass/Vol] 9.5 g/dL Low 11.8-15.4 [facility] Comment on above: Performed By: #### A BG #### Point of Care testing , Hypochromasia Moderate Normal The [facility] Comment on above: Performed By: #### A BG #### Point of Care testing , Large Platelets Slight Normal [facility] Comment on above: Result Comment: PERF ORMED BY: [facility] [address] [place] [address] PATHOLOGIST MEAL ROOM HAND REDDY GARNICA M.D. Performed By: #### A BG #### Point of Care testing , Lymphocytes (Bld) [#/Vol] 1.3 10*3/uL Normal 1.00-4.8 [facility] Comment on above: Performed By: #### A BG #### Point of Care testing , Lymphocytes/100 WBC (Bld) 18.1 % Normal . [facility] Comment on above: Performed By: #### A BG #### Point of Care testing , Macrocytosis Slight Normal The [facility] Comment on above: Performed By: #### A BG #### Point of Care testing , MCH (RBC) [Entitic mass] 27.6 pg Normal 24.7-34.3 [facility] Comment on above: Performed By: #### A BG #### Point of Care testing , MCV (RBC) [Entitic vol] 83.9 fL Normal 80-100 T [facility] Comment on above: Performed By: #### A BG #### Point of Care testing , Mean Corpuscular HGB Conc 32.9 g/dL Normal 32.0-35.0 [facility] Comment on above: Performed By: #### A BG #### Point of Care testing , Monocytes (Bld) [#/Vol] 0.3 10*3/uL Normal 0.0-0.8 [facility] Comment on above: Performed By: #### A BG #### Point of Care testing , Monocytes/100 WBC (Bld) 4.9 % Normal . [facility] Comment on above: Performed By: #### A BG #### Point of Care testing , Neutrophils (Bld) [#/Vol] 5.4 10*3/uL Normal 1.8-7.7 [facility] Comment on above: Performed By: #### A BG #### Point of Care testing , Neutrophils/100 WBC (Bld) 75.9 % Normal . [facility] Comment on above: Performed By: #### A BG #### Point of Care testing , NRBC% 0.1 /100{WBC} Normal 0-0.5 The [facility] Comment on above: Performed By: #### A BG #### Point of Care testing , Platelet Estimate Normal Normal Normal The [facility] Comment on above: Performed By: #### A BG #### Point of Care testing , Platelet mean volume (Bld) [Entitic vol] 8.2 fL Normal 6.3-10.7 The [facility] Comment on above: Performed By: #### A BG #### Point of Care testing , Platelets (Bld) [#/Vol] 212 10*3/uL Normal 150-450 [facility] Comment on above: Performed By: #### A BG #### Point of Care testing , Polychromasia Slight Normal The [facility] Comment on above: Performed By: #### A BG #### Point of Care testing , RBC (Bld) [#/Vol] 3.45 10*6/uL Low 3.60-5.00 The [facility] Comment on above: Performed By: #### A BG #### Point of Care testing , WBC (Bld) [#/Vol] 7.1 10*3/uL Normal 3.8-11.6 [facility] Comment on above: Performed By: #### A BG #### Point of Care testing , White Blood Count 7.1 [CFU]/mL Normal 3.8-11.6 The [facility] Comment on above: Performed By: #### A BG #### Point of Care testing , Blood Cultureon 03-18-2025 Bacteria identified Cx Nom (Bld) NO GROWTH 5 DAYS PERFORMED BY: [place] [address] PATHOLOGIST MEAL ROOM HAND REDDY GARNICA M.D. Normal [facility] Comment on above: Performed By: #### C MP, MG #### [address] Bacteria identified Cx Nom (Bld) NO GROWTH 5 DAYS PERFORMED BY: [place] [address] PATHOLOGIST MEAL ROOM HAND REDDY GARNICA M.D. Normal [facility] Comment on above: Performed By: #### C MP, MG #### [address] Comprehensive Metabolic Pane vaughn 03-18-2025 Albumin [Mass/Vol] 2.6 g/dL Low 3.5-5.7 [facility] Comment on above: Performed By: #### T IBC, MG, CMP #### [facility] [address] [place] [address] [place] Albumin/Globulin [Mass ratio] 1.1 {ratio} Normal [facility] Comment on above: Performed By: #### T IBC, MG, CMP #### [facility] [address] ALP [Catalytic activity/Vol] 139 U/L High 34-104 [facility] Comment on above: Performed By: #### T IBC, MG, CMP #### [facility] [address] ALT [Catalytic activity/Vol] 18 U/L Normal 7-52 [facility] Comment on above: Performed By: #### T IBC, MG, CMP #### [address] Anion gap [Moles/Vol] 9.2 mmol/L Normal 6.0-15.0 [facility] Comment on above: Performed By: #### T IBC, MG, CMP #### [place] [address] [place] AST [Catalytic activity/Vol] 23 U/L Normal 13-39 [facility] Comment on above: Performed By: #### T IBC, MG, CMP #### [place] [address] [place] Bilirubin [Mass/Vol] 0.2 mg/dL Low 0.3-1.0 [facility] Comment on above: Performed By: #### T IBC, MG, CMP #### [facility] [address] [place] [address] [place] Calcium [Mass/Vol] 8.6 mg/dL Normal 8.6-10.3 [facility] Comment on above: Performed By: #### T IBC, MG, CMP #### [facility] [address] [place] [address] [place] Chloride [Moles/Vol] 104 mmol/L Normal 98-107 [facility] Comment on above: Performed By: #### T IBC, MG, CMP #### [facility] [address] CO2 [Moles/Vol] 27.4 mmol/L Normal 21.0-31.0 [facility] Comment on above: Performed By: #### T IBC, MG, CMP #### [facility] [address] Creatinine [Mass/Vol] 0.50 mg/dL Low 0.60-1.20 [facility] Comment on above: Performed By: #### T IBC, MG, CMP #### [facility] [address] [place] [address] [place] Creatinine Clr Calc Pharmacy 129.45 Normal [facility] Comment on above: Performed By: #### T IBC, MG, CMP #### [facility] [address] GFR/1.73 sq M.predicted MDRD (S/P/Bld) [Vol rate/Area] mL/min/{1.73_m2} Normal [facility] Comment on above: Performed By: #### T IBC, MG, CMP #### [facility] [address] Globulin (S) [Mass/Vol] 2.4 g/dL Normal T [facility] Comment on above: Performed By: #### T IBC, MG, CMP #### [address] Glucose [Mass/Vol] 113 mg/dL High 70-100 [facility] Comment on above: Result Comment: [facility] Glucose Reference Range is dependent on time and content of last meal. Glucose of more than 200 mg/dL in a nonstressed, ambulatory subject supports the diagnosis of Diabetes Mellitus. ADA recommended reference range Performed By: #### T IBC, MG, CMP #### [facility] [address] Potassium [Moles/Vol] 3.6 mmol/L Normal 3.5-5.1 [facility] Comment on above: Performed By: #### T IBC, MG, CMP #### [facility] [address] [place] [address] Protein [Mass/Vol] 5.0 g/dL Low 6.4-8.9 [facility] Comment on above: Performed By: #### T IBC, MG, CMP #### [address] Sodium [Moles/Vol] 137 mmol/L Normal 136-145 [facility] Comment on above: Performed By: #### T IBC, MG, CMP #### [address] Urea nitrogen [Mass/Vol] 12 mg/dL Normal 7-25 [facility] Comment on above: Performed By: #### T IBC, MG, CMP #### [address] Magnesiumon 03-18-2025 Magnesium [Mass/Vol] 1.7 mg/dL Low 1.9-2.7 [facility] Comment on above: Performed By: #### T IBC, MG, CMP #### [address] Scan and CBCon 03-18-2025 Anisocytosis Ql (Bld) Marked Normal [facility] Comment on above: Performed By: #### M RSA - MSSA PCR #### [place] [address] [place] Basophils (Bld) [#/Vol] 0.0 10*3/uL Normal 0.0-0.2 [facility] Comment on above: Performed By: #### M RSA - MSSA PCR #### [place] [address] [place] Basophils/100 WBC (Bld) 0.2 % Normal . T crystal [facility] Comment on above: Performed By: #### M RSA - MSSA PCR #### [address] Eosinophils (Bld) [#/Vol] 0.0 10*3/uL Normal 0.0-0.45 [facility] Comment on above: Performed By: #### M RSA - MSSA PCR #### [place] [address] [place] Eosinophils/100 WBC (Bld) 0.0 % Normal . [facility] Comment on above: Performed By: #### M RSA - MSSA PCR #### [address] Erythrocyte distribution width (RBC) [Ratio] 19.6 % High 11.9-15.3 [facility] Comment on above: Performed By: #### M RSA - MSSA PCR #### [address] Hematocrit (Bld) [Volume fraction] 27.2 % Low 34.0-46.4 [facility] Comment on above: Performed By: #### M RSA - MSSA PCR #### [address] Hemoglobin (Bld) [Mass/Vol] 8.9 g/dL Low 11.8-15.4 [facility] Comment on above: Performed By: #### M RSA - MSSA PCR #### [address] Lymphocytes (Bld) [#/Vol] 0.5 10*3/uL Low 1.00-4.8 [facility] Comment on above: Performed By: #### M RSA - MSSA PCR #### [place] [address] [place] Lymphocytes/100 WBC (Bld) 3.2 % Normal . [facility] Comment on above: Performed By: #### M RSA - MSSA PCR #### [address] MCH (RBC) [Entitic mass] 27.7 pg Normal 24.7-34.3 [facility] Comment on above: Performed By: #### M RSA - MSSA PCR #### [address] MCV (RBC) [Entitic vol] 85.1 fL Normal 80-100 T he [facility] Comment on above: Performed By: #### M RSA - MSSA PCR #### [address] Mean Corpuscular HGB Conc 32.6 g/dL Normal 32.0-35.0 [facility] Comment on above: Performed By: #### M RSA - MSSA PCR #### [address] Monocytes (Bld) [#/Vol] 1.0 10*3/uL High 0.0-0.8 [facility] Comment on above: Performed By: #### M RSA - MSSA PCR #### [address] Monocytes/100 WBC (Bld) 6.6 % Normal . [facility] Comment on above: Performed By: #### M RSA - MSSA PCR #### [place] [address] [place] Neutrophils (Bld) [#/Vol] 14.1 10*3/uL High 1.8-7.7 [facility] Comment on above: Performed By: #### M RSA - MSSA PCR #### [address] Neutrophils/100 WBC (Bld) 90.0 % Normal . [facility] Comment on above: Performed By: #### M RSA - MSSA PCR #### [place] [address] [place] NRBC% 0.1 /100{WBC} Normal 0-0.5 The [facility] Comment on above: Performed By: #### M RSA - MSSA PCR #### [place] [address] [place] Platelet Estimate Normal Normal Normal The [facility] Comment on above: Performed By: #### M RSA - MSSA PCR #### [address] Platelet mean volume (Bld) [Entitic vol] 8.5 fL Normal 6.3-10.7 The [facility] Comment on above: Performed By: #### M RSA - MSSA PCR #### [address] Platelet Morphology Normal Normal Normal The [facility] Comment on above: Result Comment: PERF ORMED BY: [place] [address] PATHOLOGIST MEAL ROOM HAND REDDY GARNICA M.D. Performed By: #### M RSA - MSSA PCR #### [address] Platelets (Bld) [#/Vol] 196 10*3/uL Normal 150-450 [facility] Comment on above: Performed By: #### M RSA - MSSA PCR #### [address] RBC (Bld) [#/Vol] 3.20 10*6/uL Low 3.60-5.00 The [facility] Comment on above: Performed By: #### M RSA - MSSA PCR #### [address] Rouleaux Slight Normal [facility] Comment on above: Performed By: #### M RSA - MSSA PCR #### [address] Toxic Granulation Slight Normal The [facility] Comment on above: Performed By: #### M RSA - MSSA PCR #### [address] WBC (Bld) [#/Vol] 15.6 10*3/uL High 3.8-11.6 The [facility] Comment on above: Performed By: #### M RSA - MSSA PCR #### [address] White Blood Count 15.6 [CFU]/mL High 3.8-11.6 [facility] Comment on above: Performed By: #### M RSA - MSSA PCR #### [address] Total Iron Binding Capacityo n 03-18-2025 Total Iron Binding Capacity 244 ug/dL Low 255-450 [facility] Comment on above: Performed By: #### T IBC, MG, CMP #### [address] Transferrin [Mass/Vol] 174 mg/dL Low 203-362 Th e [facility] Comment on above: Result Comment: PERF ORMED BY: [place] [address] PATHOLOGIST MEAL ROOM HAND REDDY GARNICA M.D. Performed By: #### T IBC, MG, CMP #### [address] Clostridium Difficileon Clostridium Difficile Negative Normal Negative [facility] Comment on above: Order Comment: > or = to 3 loose/watery stools in the last 24 HRS? Y Is patient on promotility agents or tube feeding? N Result Comment: Test ing performed by RT-PCR PERFORMED BY: [place] [address] PATHOLOGIST MEAL ROOM HAND REDDY GARNICA M.D. Performed By: #### C MP, MG #### [address] Comprehensive Metabolic Pane vaughn 03-17-2025 Albumin [Mass/Vol] 2.9 g/dL Low 3.5-5.7 [facility] Comment on above: Performed By: #### C MP, MG #### [address] Albumin/Globulin [Mass ratio] 1.1 {ratio} Normal [facility] Comment on above: Performed By: #### C MP, MG #### [place] [address] [place] ALP [Catalytic activity/Vol] 54 U/L Normal 34-104 [facility] Comment on above: Performed By: #### C MP, MG #### [place] [address] [place] ALT [Catalytic activity/Vol] 25 U/L Normal 7-52 [facility] Comment on above: Performed By: #### C MP, MG #### [facility] [address] Anion gap [Moles/Vol] 10.1 mmol/L Normal 6.0-15.0 Th e [facility] Comment on above: Performed By: #### C MP, MG #### [facility] [address] AST [Catalytic activity/Vol] 30 U/L Normal 13-39 [facility] Comment on above: Performed By: #### C MP, MG #### [facility] [address] Bilirubin [Mass/Vol] 0.3 mg/dL Normal 0.3-1.0 [facility] Comment on above: Performed By: #### C MP, MG #### [address] Calcium [Mass/Vol] 8.9 mg/dL Normal 8.6-10.3 [facility] Comment on above: Performed By: #### C MP, MG #### [place] [address] [place] Chloride [Moles/Vol] 105 mmol/L Normal 98-107 [facility] Comment on above: Performed By: #### C MP, MG #### [facility] [address] [place] [address] [place] CO2 [Moles/Vol] 23.5 mmol/L Normal 21.0-31.0 [facility] Comment on above: Performed By: #### C MP, MG #### [facility] [address] [place] [address] [place] Creatinine [Mass/Vol] 0.57 mg/dL Low 0.60-1.20 [facility] Comment on above: Performed By: #### C MP, MG #### [facility] [address] [place] [address] [place] Creatinine Clr Calc Pharmacy 110.60 Normal [facility] Comment on above: Performed By: #### C MP, MG #### [address] GFR/1.73 sq M.predicted MDRD (S/P/Bld) [Vol rate/Area] mL/min/{1.73_m2} Normal [facility] Comment on above: Performed By: #### C MP, MG #### [address] Globulin (S) [Mass/Vol] 2.7 g/dL Normal T he [facility] Comment on above: Performed By: #### C MP, MG #### [address] Glucose [Mass/Vol] 90 mg/dL Normal 70-100 [facility] Comment on above: Result Comment: [facility] [place] Glucose Reference Range is dependent on time and content of last meal. Glucose of more than 200 mg/dL in a nonstressed, ambulatory subject supports the diagnosis of Diabetes Mellitus. ADA recommended reference range Performed By: #### C MP, MG #### [address] Potassium [Moles/Vol] 3.6 mmol/L Normal 3.5-5.1 [facility] Comment on above: Performed By: #### C MP, MG #### [address] Protein [Mass/Vol] 5.6 g/dL Low 6.4-8.9 [facility] Comment on above: Performed By: #### C MP, MG #### [address] Sodium [Moles/Vol] 135 mmol/L Low 136-145 [facility] Comment on above: Performed By: #### C MP, MG #### [address] Urea nitrogen [Mass/Vol] 16 mg/dL Normal 7-25 [facility] Comment on above: Performed By: #### C MP, MG #### [address] Legionella Pneumophilia Ag, Uron 03-17-2025 Legionella Pneumophilia Ag, Ur Negative Normal Negative [facility] Comment on above: Order Comment: SOURC E OF SPECIMEN: Indwelling Rain catheter Result Comment: Pres umptive negative for L. pneumophila serogroup 1 antigen in urine, suggesting no recent or current infection. Legionnaires' disease cannot be ruled out since other serogroups and species may also cause disease. Performed at: - [facility] [id number] Transaction Manager: Saul Villanueva MD, Phone: [phone] PERFORMED BY: [place] [address] PATHOLOGIST MEAL ROOM HAND REDDY GARNICA M.D. Performed By: #### U RLEGIONELLA #### [facility] , Magnesiumon 03-17-2025 Magnesium [Mass/Vol] 2.2 mg/dL Normal 1.9-2.7 [facility] Comment on above: Result Comment: PERF ORMED BY: [place] [phone] PATHOLOGIST MEAL ROOM HAND REDDY GARNICA M.D. Performed By: #### C MP, MG #### [place] [address] [place] Scan and CBCon 03-17-2025 Anisocytosis Ql (Bld) Marked Normal [facility] Comment on above: Performed By: #### A BG #### Point of Care testing , Basophils (Bld) [#/Vol] 0.0 10*3/uL Normal 0.0-0.2 [facility] Comment on above: Performed By: #### A BG #### Point of Care testing , Basophils/100 WBC (Bld) 0.1 % Normal . T he [facility] Comment on above: Performed By: #### A BG #### Point of Care testing , Dohle Bodies Slight Normal [facility] Comment on above: Performed By: #### A BG #### Point of Care testing , Eosinophils (Bld) [#/Vol] 0.0 10*3/uL Normal 0.0-0.45 [facility] Comment on above: Performed By: #### A BG #### Point of Care testing , Eosinophils/100 WBC (Bld) 0.0 % Normal . [facility] Comment on above: Performed By: #### A BG #### Point of Care testing , Erythrocyte distribution width (RBC) [Ratio] 19.8 % High 11.9-15.3 [facility] Comment on above: Performed By: #### A BG #### Point of Care testing , Hematocrit (Bld) [Volume fraction] 27.8 % Low 34.0-46.4 [facility] Comment on above: Performed By: #### A BG #### Point of Care testing , Hemoglobin (Bld) [Mass/Vol] 9.2 g/dL Low 11.8-15.4 [facility] Comment on above: Performed By: #### A BG #### Point of Care testing , Hypochromasia Slight Normal [facility] Comment on above: Performed By: #### A BG #### Point of Care testing , Lymphocytes (Bld) [#/Vol] 0.1 10*3/uL Low 1.00-4.8 [facility] Comment on above: Performed By: #### A BG #### Point of Care testing , Lymphocytes/100 WBC (Bld) 1.1 % Normal . [facility] Comment on above: Performed By: #### A BG #### Point of Care testing , MCH (RBC) [Entitic mass] 27.8 pg Normal 24.7-34.3 [facility] Comment on above: Performed By: #### A BG #### Point of Care testing , MCV (RBC) [Entitic vol] 84.1 fL Normal 80-100 T he [facility] Comment on above: Performed By: #### A BG #### Point of Care testing , Mean Corpuscular HGB Conc 33.0 g/dL Normal 32.0-35.0 [facility] Comment on above: Performed By: #### A BG #### Point of Care testing , Monocytes (Bld) [#/Vol] 0.5 10*3/uL Normal 0.0-0.8 [facility] Comment on above: Performed By: #### A BG #### Point of Care testing , Monocytes/100 WBC (Bld) 5.8 % Normal . T [facility] Comment on above: Performed By: #### A BG #### Point of Care testing , Neutrophils (Bld) [#/Vol] 8.7 10*3/uL High 1.8-7.7 [facility] Comment on above: Performed By: #### A BG #### Point of Care testing , Neutrophils/100 WBC (Bld) 93.0 % Normal . [facility] Comment on above: Performed By: #### A BG #### Point of Care testing , NRBC% 0.1 /100{WBC} Normal 0-0.5 [facility] Comment on above: Performed By: #### A BG #### Point of Care testing , Platelet Estimate Normal Normal Normal [facility] Comment on above: Performed By: #### A BG #### Point of Care testing , Platelet mean volume (Bld) [Entitic vol] 8.4 fL Normal 6.3-10.7 [facility] Comment on above: Performed By: #### A BG #### Point of Care testing , Platelet Morphology Normal Normal Normal The [facility] Comment on above: Result Comment: PERF ORMED BY: [place] [address] [place] [address] PATHOLOGIST MEAL ROOM HAND REDDY GARNICA M.D. Performed By: #### A BG #### Point of Care testing , Platelets (Bld) [#/Vol] 216 10*3/uL Normal 150-450 [facility] Comment on above: Performed By: #### A BG #### Point of Care testing , RBC (Bld) [#/Vol] 3.31 10*6/uL Low 3.60-5.00 The [facility] Comment on above: Performed By: #### A BG #### Point of Care testing , WBC (Bld) [#/Vol] 9.3 10*3/uL Normal 3.8-11.6 [facility] Comment on above: Performed By: #### A BG #### Point of Care testing , White Blood Count 9.3 [CFU]/mL Normal 3.8-11.6 The [facility] Comment on above: Performed By: #### A BG #### Point of Care testing , Arterial Blood Gason 025 ABG Base Excess -4.7 mmol/L Low -3.0-3.0 [facility] Comment on above: Performed By: #### A BG #### Point of Care testing , ABG Frac Inspired O2 100 % Normal [facility] Comment on above: Performed By: #### A BG #### Point of Care testing , ABG Liter Flow 40 Normal The [facility] Comment on above: Performed By: #### A BG #### Point of Care testing , ABG Oxygen Content 4.0 mmol/L Low 6.6-9.7 [facility] Comment on above: Performed By: #### A BG #### Point of Care testing , ABG Oxygen Saturation 66.7 % Low 95.0-100.0 [facility] Comment on above: Performed By: #### A BG #### Point of Care testing , ABG PCO2 40.6 mm[Hg] Normal 35.0-45.0 [facility] Comment on above: Performed By: #### A BG #### Point of Care testing , ABG PH 7.33 Low 7.35-7.45 [facility] Comment on above: Performed By: #### A BG #### Point of Care testing , ABG PO2 37.7 mm[Hg] Off scale low 80.0-100.0 [facility] Comment on above: Performed By: #### A BG #### Point of Care testing , CO2 [Moles/Vol] 22.1 mmol/L Low 23.0-27.0 [facility] Comment on above: Performed By: #### A BG #### Point of Care testing , HCO3 (Bld) [Moles/Vol] 20.9 mmol/L Low 23.0-29.0 T he [facility] Comment on above: Performed By: #### A BG #### Point of Care testing , Oxygen Device High Flow Normal [facility] Comment on above: Performed By: #### A BG #### Point of Care testing , Respiratory Critical Normal [facility] Comment on above: Result Comment: Crit ical Value called on: 03/16/2025 at 20:10 PERFORMED BY: [place] [address] PATHOLOGIST MEAL ROOM HAND REDDY GARNICA M.D. Performed By: #### A BG #### Point of Care testing , VBG Draw Site Venous Normal [facility] Comment on above: Performed By: #### A BG #### Point of Care testing , Basic Metabolic Panelon Anion gap [Moles/Vol] 14.2 mmol/L Normal 6.0-15.0 [facility] Comment on above: Performed By: #### M RSA - MSSA PCR #### [place] [address] [place] Calcium [Mass/Vol] 8.1 mg/dL Low 8.6-10.3 [facility] Comment on above: Performed By: #### M RSA - MSSA PCR #### [place] [address] [place] Chloride [Moles/Vol] 106 mmol/L Normal 98-107 [facility] Comment on above: Performed By: #### M RSA - MSSA PCR #### [place] [address] [place] CO2 [Moles/Vol] 19.5 mmol/L Low 21.0-31.0 [facility] Comment on above: Performed By: #### M RSA - MSSA PCR #### [place] [address] [place] Creatinine [Mass/Vol] 0.67 mg/dL Normal 0.60-1.20 [facility] Comment on above: Performed By: #### M RSA - MSSA PCR #### [place] [address] [place] Creatinine Clr Calc Pharmacy 86.56 Normal [facility] Comment on above: Performed By: #### M RSA - MSSA PCR #### [place] [address] [place] GFR/1.73 sq M.predicted MDRD (S/P/Bld) [Vol rate/Area] mL/min/{1.73_m2} Normal [facility] Comment on above: Performed By: #### M RSA - MSSA PCR #### [address] Glucose [Mass/Vol] 95 mg/dL Normal 70-100 [facility] Comment on above: Result Comment: [facility] Glucose Reference Range is dependent on time and content of last meal. Glucose of more than 200 mg/dL in a nonstressed, ambulatory subject supports the diagnosis of Diabetes Mellitus. ADA recommended reference range Performed By: #### M RSA - MSSA PCR #### [place] [address] [place] Potassium [Moles/Vol] 3.7 mmol/L Normal 3.5-5.1 [facility] Comment on above: Performed By: #### M RSA - MSSA PCR #### [place] [address] [place] Sodium [Moles/Vol] 136 mmol/L Normal 136-145 [facility] Comment on above: Performed By: #### M RSA - MSSA PCR #### [place] [address] [place] Urea nitrogen [Mass/Vol] 18 mg/dL Normal 7-25 [facility] Comment on above: Performed By: #### M RSA - MSSA PCR #### [place] [address] [place] Anion gap [Moles/Vol] 16.3 mmol/L High 6.0-15.0 Th e [facility] Comment on above: Performed By: #### M RSA - MSSA PCR #### [place] [id number] [place] Calcium [Mass/Vol] 7.9 mg/dL Low 8.6-10.3 [facility] Comment on above: Performed By: #### M RSA - MSSA PCR #### [address] Chloride [Moles/Vol] 104 mmol/L Normal 98-107 [facility] Comment on above: Performed By: #### M RSA - MSSA PCR #### [address] CO2 [Moles/Vol] 17.2 mmol/L Low 21.0-31.0 [facility] Comment on above: Performed By: #### M RSA - MSSA PCR #### [address] Creatinine [Mass/Vol] 0.72 mg/dL Normal 0.60-1.20 [facility] Comment on above: Performed By: #### M RSA - MSSA PCR #### [place] [address] [place] Creatinine Clr Calc Pharmacy 80.55 Normal [facility] Comment on above: Result Comment: PERF ORMED BY: [place] [address] PATHOLOGIST MEAL ROOM HAND REDDY GARNICA M.D. Performed By: #### M RSA - MSSA PCR #### [address] GFR/1.73 sq M.predicted MDRD (S/P/Bld) [Vol rate/Area] mL/min/{1.73_m2} Normal [facility] Comment on above: Performed By: #### M RSA - MSSA PCR #### [address] Glucose [Mass/Vol] 105 mg/dL High 70-100 [facility] Comment on above: Result Comment: [facility] Glucose Reference Range is dependent on time and content of last meal. Glucose of more than 200 mg/dL in a nonstressed, ambulatory subject supports the diagnosis of Diabetes Mellitus. ADA recommended reference range Performed By: #### M RSA - MSSA PCR #### [facility] [address] Potassium [Moles/Vol] 3.5 mmol/L Normal 3.5-5.1 [facility] Comment on above: Performed By: #### M RSA - MSSA PCR #### [facility] [address] Sodium [Moles/Vol] 134 mmol/L Low 136-145 [facility] Comment on above: Performed By: #### M RSA - MSSA PCR #### [facility] [address] [place] [address] Urea nitrogen [Mass/Vol] 20 mg/dL Normal 7-25 [facility] Comment on above: Performed By: #### M RSA - MSSA PCR #### [facility] [address] [place] [address] CT abdomen pelvis w conon CT abdomen pelvis w con [facility] Main [place] [address] [place] [address] CT Scan Report Signed Patient: Macie Cloud MR#: [id number] : 1975 Acct:[id number] Age/Sex: 49 / F ADM Date: 03/15/25 Loc: Room: [address] [place] [address] Type: ADM IN Attending Dr: Patrica Pfeiffer MD Copies to: Patrica Pfeiffer MD Ordering Provider: Patrica Pfeiffer MD Date of Service: 03/16/25 CT/CT angio chest PE protocol: Ruling out PE ([id number]) CT/CT abdomen pelvis w con: Rectal bleeding [...] Magaña M.D. 03/16/2025 3:35 PM Dictation Location: [place] [address] Transcribed By: [facility] 03/16/25 1535 Dictated By: Joy Magaña II, MD 03/16/25 1525 Signed By: 03/16/25 1535 [facility] Complete Blood Count Auto Di ffon 03-16-2025 Basophils (Bld) [#/Vol] 0.0 10*3/uL Normal 0.0-0.2 [facility] Comment on above: Result Comment: PERF ORMED BY: [place] [address] PATHOLOGIST MEAL ROOM HAND REDDY GARNICA M.D. Performed By: #### M RSA - MSSA PCR #### [address] Basophils/100 WBC (Bld) 0.3 % Normal . T crystal [facility] Comment on above: Performed By: #### M RSA - MSSA PCR #### [address] Eosinophils (Bld) [#/Vol] 0.0 10*3/uL Normal 0.0-0.45 [facility] Comment on above: Performed By: #### M RSA - MSSA PCR #### [place] [address] [place] Eosinophils/100 WBC (Bld) 0.0 % Normal . [facility] Comment on above: Performed By: #### M RSA - MSSA PCR #### [address] Erythrocyte distribution width (RBC) [Ratio] 19.3 % High 11.9-15.3 [facility] Comment on above: Performed By: #### M RSA - MSSA PCR #### [address] Hematocrit (Bld) [Volume fraction] 29.8 % Low 34.0-46.4 [facility] Comment on above: Performed By: #### M RSA - MSSA PCR #### [address] Hemoglobin (Bld) [Mass/Vol] 9.6 g/dL Low 11.8-15.4 [facility] Comment on above: Performed By: #### M RSA - MSSA PCR #### [place] [address] [place] Lymphocytes (Bld) [#/Vol] 0.1 10*3/uL Low 1.00-4.8 [facility] Comment on above: Performed By: #### M RSA - MSSA PCR #### [place] [address] [place] Lymphocytes/100 WBC (Bld) 5.0 % Normal . [facility] Comment on above: Performed By: #### M RSA - MSSA PCR #### [place] [address] [place] MCH (RBC) [Entitic mass] 28.0 pg Normal 24.7-34.3 [facility] Comment on above: Performed By: #### M RSA - MSSA PCR #### [address] MCV (RBC) [Entitic vol] 87.1 fL Normal 80-100 [facility] Comment on above: Performed By: #### M RSA - MSSA PCR #### [address] Mean Corpuscular HGB Conc 32.1 g/dL Normal 32.0-35.0 [facility] Comment on above: Performed By: #### M RSA - MSSA PCR #### [place] [address] [place] Monocytes (Bld) [#/Vol] 0.1 10*3/uL Normal 0.0-0.8 [facility] Comment on above: Performed By: #### M RSA - MSSA PCR #### [place] [address] [place] Monocytes/100 WBC (Bld) 3.3 % Normal . T he [facility] Comment on above: Performed By: #### M RSA - MSSA PCR #### [place] [address] [place] Neutrophils (Bld) [#/Vol] 1.7 10*3/uL Low 1.8-7.7 [facility] Comment on above: Performed By: #### M RSA - MSSA PCR #### [address] Neutrophils/100 WBC (Bld) 91.4 % Normal . [facility] Comment on above: Performed By: #### M RSA - MSSA PCR #### [address] NRBC% 0.1 /100{WBC} Normal 0-0.5 [facility] Comment on above: Performed By: #### M RSA - MSSA PCR #### [address] Platelet mean volume (Bld) [Entitic vol] 7.9 fL Normal 6.3-10.7 [facility] Comment on above: Performed By: #### M RSA - MSSA PCR #### [address] Platelets (Bld) [#/Vol] 227 10*3/uL Normal 150-450 [facility] Comment on above: Performed By: #### M RSA - MSSA PCR #### [place] [address] [place] RBC (Bld) [#/Vol] 3.42 10*6/uL Low 3.60-5.00 The [facility] Comment on above: Performed By: #### M RSA - MSSA PCR #### [place] [address] [place] WBC (Bld) [#/Vol] 1.8 10*3/uL Low 3.8-11.6 [facility] Comment on above: Performed By: #### M RSA - MSSA PCR #### [place] [address] [place] White Blood Count 1.8 [CFU]/mL Low 3.8-11.6 The [facility] Comment on above: Performed By: #### M RSA - MSSA PCR #### [address] ECH echo transthoracicon ECH echo transthoracic [facility] Main [place] [id number] Echocardiogram Signed Patient: Macie Cloud MR#: [id number] : 1975 Acct:[id number] Age/Sex: 49 / F ADM Date: 03/15/25 Loc: Room: 3H6598-0 Type: ADM IN Attending Dr: Patrica Pfeiffer MD Ordering Provider: Lee Pichardo DO Date of Service: 03/15/2509/08/2357 ECH/ECH echo transthoracic: Chest Pain Copies to: MD [place], AM Patient Location: : 1975 Gender: Female [...] 0802 Signed By: Torin Jacobson MD 03/16/25 3182 Normal [facility] Ferritinon 03-16-2025 Ferritin [Mass/Vol] 113.3 ng/mL Normal 11.0-306.8 [facility] Comment on above: Result Comment: PERF ORMED BY: [facility] [address] PATHOLOGIST MEAL ROOM HAND REDDY GARNICA M.D. Performed By: #### C MP, MG #### [facility] [address] Ferritin [Mass/Vol] 108.7 ng/mL Normal 11.0-306.8 [facility] Comment on above: Performed By: #### M RSA - MSSA PCR #### [facility] [address] [place] [address] [place] Ironon 03-16-2025 Iron [Mass/Vol] ug/dL Low 50-212 The [facility] Comment on above: Performed By: #### F ER, FE #### [facility] [address] Iron and TIBC Profileon % Iron Saturation Not performed Normal 20-50 [facility] Comment on above: Performed By: #### M RSA - MSSA PCR #### [place] [id number] [facility] Iron [Mass/Vol] ug/dL Low 50-212 The [facility] Comment on above: Performed By: #### M RSA - MSSA PCR #### [address] Total Iron Binding Capacity 284 ug/dL Normal 255-450 [facility] Comment on above: Performed By: #### M RSA - MSSA PCR #### [place] [id number] [facility] Transferrin [Mass/Vol] 203 mg/dL Normal 203-362 Th e [facility] Comment on above: Performed By: #### M RSA - MSSA PCR #### [address] Lactic Acidon 03-16-2025 Lactate [Moles/Vol] 5.1 mmol/L Off scale high 0.5-1.9 T he [facility] Comment on above: Result Comment: Crit ical Result : Called to and read back by: MANISH ROBERT at: 03/16/2025 15:00:03 by:LFM Lactic Acid reference range has been updated to 0.5 ? 1.9 mmol/L and the critical range of 2.0 or greater. PERFORMED BY: [place] [address] PATHOLOGIST MEAL ROOM HAND REDDY GARNICA M.D. Performed By: #### C MG KIMBER #### [address] Lactic Acid Reflexon 025 Lactic Acid Reflex 2.7 mmol/L Off scale high 0.5-1.9 Th e [facility] Comment on above: Result Comment: Crit ical Result : Called to and read back by: MANISH ROBERT at: 03/16/2025 18:34:36 by:LFM Lactic Acid reference range has been updated to 0.5 ? 1.9 mmol/L and the critical range of 2.0 or greater. PERFORMED BY: [place] [address] PATHOLOGIST MEAL ROOM HAND REDDY GARNICA M.D. Performed By: #### L ACTIC RFX #### [place] [id number] [facility] MRSA - MSSA Nasal PCRon MRSA - MSSA Nasal PCR MRSA Result MRSA Negative MSSA Result MSSA Positive Real-time PCR Test performed by real-time PCR Reference Range Reference Range for all targets = Neg / Not Detected Reference Note 20 ------ Reference Note 26 ------ PERFORMED BY: [place] [address] PATHOLOGIST MEAL ROOM HAND REDDY GARNICA M.D. Normal [facility] Comment on above: Performed By: #### M RSA - MSSA PCR #### [address] [address] [place] Prealbuminon 03-16-2025 Prealbumin [Mass/Vol] 9.6 mg/dL Low 17.0-34.0 [facility] Comment on above: Performed By: #### M RSA - MSSA PCR #### [address] Vit. B12/Folate Profileon Cobalamin (Vitamin B12) [Mass/Vol] 695 pg/mL Normal 180-914 [facility] Comment on above: Performed By: #### M RSA - MSSA PCR #### [address] Folate 8.0 ng/mL Normal >5.9 [facility] Comment on above: Result Comment: Aggie te reference range: >5.9 ng/ml The WHO technical consultation on folate and vitamin b12 deficiencies has determined that folate concentrations less than 4 ng/ml are considered deficient. PERFORMED BY: [place] [address] PATHOLOGIST MEAL ROOM HAND REDDY GARNICA M.D. Performed By: #### M RSA - MSSA PCR #### [address] XR pre/post mri xrayon 12-29 XR pre/post mri xray [facility] Main [place] [address] [place] [address] MRI Report Signed Patient: Macie Cloud MR#: [id number] : 1975 Acct:[id number] Age/Sex: 49 / F ADM Date: 12/29/24 Loc: Room: Type: [facility] Attending Dr: Lora Power MD Copies to: Lora Power MD Ordering Provider: Lora Power MD Date of Service: 12/29/24 MR/MR lumbar spine wo/w con: M54.16, M47.816 ([id number]) XR/XR pre/post mri xray: M47.816, M54.16 MRI [...] Dominguez M.D. 12/29/2024 12:35 PM Dictation Location: [facility] Transcribed By: [facility] 12/29/24 1235 Dictated By: Isaac Dominguez DO 12/29/24 1220 Signed By: 12/29/24 1235 Normal [facility] MR CERVICAL SPINE WO [...] JOY LOVE MD at 17-Sep-2024 08:12:59 AM [employer] Devices[facility]iology Normal Not Available XR RIBS 2 VIEWS [...] Electronically Signed Joy Love M.D. 2024-05-22 10:14:26 [facility] Radiology Study observation (narrative) [facility] XR Ribs Views and Chest PAOr dered By: Joy Love on 05-22-2024 [facility] Work Phone: MR Lumbar spine WO contrasto n 05-09-2024 1. Status post multilevel laminectomies and posterior lumbar fusion from L2-L4. The left L3 transpedicular screw likely extends into the L2-[address] for further evaluation. 2. Resolution of spinal canal stenosis at L2-3. 3. Ogzb-sb-tjqeipla right neural foraminal narrowing at L5-S1, unchanged. [facility] RIS CONSOLIDATED EXAMINATION: MRI OF THE LUMBAR [...] foraminal narrowing. L5-S1: Facet arthropathy results in zeim-yc-fwbinzhw right neural foraminal narrowing, unchanged. No significant left neural foraminal narrowing. [facility] Alexis Coto MD - 05/09/2024 EXAMINATION: MRI OF THE [...] foraminal narrowing. L5-S1: Facet arthropathy results in bnwc-wi-qwzoqbka right neural foraminal narrowing, unchanged. No significant left neural foraminal narrowing. IMPRESSION: 1. Status post multilevel laminectomies and posterior lumbar fusion from L2-L4. The left L3 transpedicular screw likely extends into the L2-[address] for further evaluation. 2. Resolution of spinal canal stenosis at L2-3. 3. Ipjh-qd-lbxwobuq right neural foraminal narrowing at L5-S1, unchanged. [facility] MR Lumbar spine WO contrastO rdered By: Alexis Sanchez on 05-09-2024 [facility] Work Phone: MR Lumbar spine WO contrasto n 05-07-2024 Radiology Study observation (narrative) [facility] BUN + Creatinineon 4 Creatinine [Mass/Vol] 0.4 mg/dL Low 0.5-0.9 [facility] Comment on above: Performed By: #### B UNCRT ####[facility] [id number] [facility] [place] [address] lab Director: Zion Sweet MD GFR/1.73 sq M.predicted among non-blacks MDRD (S/P/Bld) [Vol rate/Area] mL/min/{1.73_m2} Normal >60 [facility] Comment on above: Result Comment: These results [...] tubular secretion. Performed By: #### B UNCRT ####[facility] [id number] [facility], [place] [id number] lab Director: Zion Sweet MD Urea nitrogen [Mass/Vol] 5 mg/dL Low 6-20 [facility] Comment on above: Performed By: #### B UNCRT ####[facility] [address], [place] [phone] Director: Zion Sweet MD Basic Metab w/rfx MGon 09-28 Anion gap [Moles/Vol] 8 mmol/L Low 9-[address] [facility] Comment on above: Performed By: #### B MPX, CDP ####[facility] [address] [place] [address] Lab Director: Zion Sweet MD BUN/CRE Ratio 14 Normal 9-20 [facility] Comment on above: Performed By: #### B MPX, CDP ####[facility] [address], [place] [phone] Director: Zion Sweet MD Calcium [Mass/Vol] 8.8 mg/dL Normal 8.6-10.4 [facility] Comment on above: Performed By: #### B MPX, CDP ####[facility] [address] [facility] [place] [address] Lab Director: Zion Sweet MD Chloride [Moles/Vol] 99 mmol/L Normal 98-107 [facility] Comment on above: Performed By: #### B MPX, CDP ####[facility] [address] [place] [address] Lab Director: Zion Sweet MD CO2 [Moles/Vol] 29 mmol/L Normal 20-31 [facility] Comment on above: Performed By: #### B MPX, CDP ####[facility] [address] [place] [address] Lab Director: Zion Sweet MD Creatinine [Mass/Vol] 0.5 mg/dL Normal 0.5-0.9 [facility] Comment on above: Performed By: #### B MPX, CDP ####[facility] [id number] [facility] [place] [address] Lab Director: Zion Sweet MD GFR/1.73 sq M.predicted among non-blacks MDRD (S/P/Bld) [Vol rate/Area] mL/min/{1.73_m2} Normal >60 [facility] Comment on above: Result Comment: These results [...] secretion. Performed By: #### B MPX, CDP ####[facility] [address] [place] [address].[place] [address] Lab Director: Zion Sweet MD Glucose [Mass/Vol] 100 mg/dL High 70-99 [facility] Comment on above: Performed By: #### B MPX, CDP ####[facility] [address] [place] [address].[place] [address] Lab Director: Zion Sweet MD Potassium [Moles/Vol] 4.0 mmol/L Normal 3.7-5.3 [facility] Comment on above: Performed By: #### B MPX, CDP ####[facility] [address] [facility] [place] [address] Lab Director: Zion Sweet MD Sodium [Moles/Vol] 136 mmol/L Normal 135-144 [facility] Comment on above: Performed By: #### B MPX, CDP ####[facility] [address] [facility] [place] [address] Lab Director: Zion Sweet MD Urea nitrogen [Mass/Vol] 7 mg/dL Normal 6-20 [facility] Comment on above: Performed By: #### B MPX, CDP ####[facility] [address] [place] [address].[place] [address] Lab Director: Zion Sweet MD CBC with Diffon 09-28-2023 Abs. Basophil <0.03 Normal 0.00-0.20 [facility] Comment on above: Performed By: #### B MPX, CDP ####[facility] [address] [place] [address].[place] [address] Lab Director: Zion Sweet MD Abs.Imm.Granulocyte 0.01 k/uL Normal 0.00-0.30 [facility] Comment on above: Performed By: #### B MPX, CDP ####[facility] [address] [place] [address] Lab Director: Zion Sweet MD Abs.Neutrophil (Seg) 7.51 k/uL Normal 1.50-8.10 [facility] Comment on above: Performed By: #### B MPX, CDP ####[facility] [address] [place] [address] Lab Director: Zion Sweet MD Basophils/100 WBC (Bld) 0 % Normal 0-[address] [facility] Comment on above: Performed By: #### B MPX, CDP ####[facility] [address] [place] [address].[place] [address] Lab Director: Zion Sweet MD Eosinophils (Bld) [#/Vol] 0.15 10*3/uL Normal 0.00-0.44 [facility] Comment on above: Performed By: #### B MPX, CDP ####[facility] [address] [place] [address] Lab Director: Zion Sweet MD Eosinophils/100 WBC (Bld) 2 % Normal 1-4 [facility] Comment on above: Performed By: #### B MPX, CDP ####[facility] [address] [facility] [place] [address] Lab Director: Zion Sweet MD Erythrocyte distribution width (RBC) [Ratio] 14.7 % High 11.8-14.4 [facility] Comment on above: Performed By: #### B MPX, CDP ####[facility] [id number] [facility] [place] [address] Lab Director: Zion Sweet MD Hematocrit (Bld) [Volume fraction] 41.8 % Normal 36.3-47.1 [facility] Comment on above: Performed By: #### B MPX, CDP ####[facility] [address] [place] [address].[place] [address] Lab Director: Zion Sweet MD Hemoglobin (Bld) [Mass/Vol] 12.9 g/dL Normal 11.9-15.1 [facility] Comment on above: Performed By: #### B MPX, CDP ####[facility] [address] [place] [address].[place] [address] Lab Director: Zion Sweet MD Immature granulocytes/100 WBC (Bld) 0 % Normal 0 [facility] Comment on above: Performed By: #### B MPX, CDP ####[facility] [address] [facility] [place] [address] Lab Director: Zion Sweet MD Lymphocytes (Bld) [#/Vol] 1.89 10*3/uL Normal 1.10-3.70 [facility] Comment on above: Performed By: #### B MPX, CDP ####[facility] [address] [place] [address] Lab Director: Zion Sweet MD Lymphocytes/100 WBC (Bld) 19 % Low 24-43 [facility] Comment on above: Performed By: #### B MPX, CDP ####[facility] [address] [place] [address].[place] [address] Lab Director: Zion Sweet MD MCH (RBC) [Entitic mass] 30.5 pg Normal 25.2-33.5 [facility] Comment on above: Performed By: #### B MPX, CDP ####[facility] [address] [place] [address] Lab Director: Zion Sweet MD MCHC (RBC) [Mass/Vol] 30.9 g/dL Normal 28.4-34.8 [facility] Comment on above: Performed By: #### B MPX, CDP ####[facility] [address] [place] [address] Lab Director: Zion Sweet MD MCV (RBC) [Entitic vol] 98.8 fL Normal 82.6-102.9 [facility] Comment on above: Performed By: #### B MPX, CDP ####[facility] [address] [place] [address] Lab Director: Zoin Sweet MD Monocytes (Bld) [#/Vol] 0.60 10*3/uL Normal 0.10-1.20 [facility] Comment on above: Performed By: #### B MPX, CDP ####[facility] [address] [place] [address] Lab Director: Zion Sweet MD Monocytes/100 WBC (Bld) 6 % Normal 3-[address] [facility] Comment on above: Performed By: #### B MPX, CDP ####[facility] [address] [place] [address] Lab Director: Zion Sweet MD Neutrophil (Seg) 74 % High 36-65 [facility] Comment on above: Performed By: #### B MPX, CDP ####[facility] [address] [facility] [place] [address] Lab Director: Zion Sweet MD Platelet mean volume (Bld) [Entitic vol] 8.5 fL Normal 8.1-13.5 [facility] Comment on above: Performed By: #### B MPX, CDP ####[facility] [address] [facility] [place] [address] Lab Director: Zion Sweet MD Platelets (Bld) [#/Vol] 371 10*3/uL Normal 138-453 [facility] Comment on above: Performed By: #### B MPX, CDP ####[facility] [address] [facility] [place] [address] Lab Director: Zion Sweet MD RBC (Bld) [#/Vol] 4.23 10*6/uL Normal 3.95-5.11 [facility] Comment on above: Performed By: #### B MPX, CDP ####[facility] [address] [facility] [place] [address] Lab Director: Zion Sweet MD RBC morphology finding Nom (Bld) ANISOCYTOSIS PRESENT Normal [facility] Comment on above: Performed By: #### B MPX, CDP ####[facility] [id number] [facility] [place] [address] Lab Director: Zion Sweet MD WBC (Bld) [#/Vol] 10.2 10*3/uL Normal 3.5-11.3 [facility] Comment on above: Performed By: #### B MPX, CDP ####[facility] [address], [place] [id number] Lab Director: Zion Sweet MD Lactic Acidon 09-28-2023 Lactate [Moles/Vol] 0.7 mmol/L Normal 0.5-2.2 [facility] Comment on above: Performed By: #### L ACTIC #### [facility] [address] [place] [address] Transaction Manager: Zion Sweet MD MRI LUMBAR SPINE W [...] Divya Varner MD 09/28/23 Final result Normal [facility] Vancomycin,Randomon 09-28-19 Vancomycin 18.5 ug/mL Normal [facility] Comment on above: Result Comment: High er trough serum vancomycin concentrations of 15-20 ug/mL are recommended for complicated infections such as bacteremia, endocarditis, osteomyelitis, meningitis, and hospital acquired pneumonia. Performed By: #### V NCR ####[facility] [address] [facility] [place] [address] Lab Director: Zion Sweet MD C-Reactive Proteinon 024 CRP [Mass/Vol] 7.1 mg/L High 0.0-5.0 [facility] Comment on above: Performed By: #### C P, CRP, SED, CDP #### [facility] [address] [facility] [place], [place] [phone] Transaction Manager: Zion Sweet MD CBC with Diffon 09-27-2023 Abs. Basophil <0.03 Normal 0.00-0.20 [facility] Comment on above: Performed By: #### C P, CRP, SED, CDP #### [facility] [address] [place] [address] Transaction Manager: Zion Sweet MD Abs.Imm.Granulocyte 0.01 k/uL Normal 0.00-0.30 [facility] Comment on above: Performed By: #### C P, CRP, SED, CDP #### [facility] [address] [place], [place] [address]ia [facility] [place] [address] Transaction Manager: Zion Sweet MD Abs.Neutrophil (Seg) 8.68 k/uL High 1.50-8.10 [facility] Comment on above: Performed By: #### C P, CRP, SED, CDP #### [facility] [address] [place] [address]. [place] [address] Transaction Manager: Zion Sweet MD Basophils/100 WBC (Bld) 0 % Normal 0-2 [facility] Comment on above: Performed By: #### C P, CRP, SED, CDP #### [facility] [address] [place] [address]. [place] [address] Transaction Manager: Zion Sweet MD Eosinophils (Bld) [#/Vol] 0.12 10*3/uL Normal 0.00-0.44 [facility] Comment on above: Performed By: #### C P, CRP, SED, CDP #### [facility] [address] [place], [place] [address]ia [facility] [place] [address] Transaction Manager: Zion Sweet MD Eosinophils/100 WBC (Bld) 1 % Normal 1-4 [facility] Comment on above: Performed By: #### C P, CRP, SED, CDP #### [facility] [address] [place], [place] [address]ia [facility] [place] [address] Transaction Manager: Zion Sweet MD Erythrocyte distribution width (RBC) [Ratio] 14.7 % High 11.8-14.4 [facility] Comment on above: Performed By: #### C P, CRP, SED, CDP #### [facility] [address] [place] [address] Transaction Manager: Zion Sweet MD Hematocrit (Bld) [Volume fraction] 43.4 % Normal 36.3-47.1 [facility] Comment on above: Performed By: #### C P, CRP, SED, CDP #### [facility] [address] [place] [address] Transaction Manager: Zion Sweet MD Hemoglobin (Bld) [Mass/Vol] 13.7 g/dL Normal 11.9-15.1 [facility] Comment on above: Performed By: #### C P, CRP, SED, CDP #### [facility] [address] [place] [address] Transaction Manager: Zion Sweet MD Immature granulocytes/100 WBC (Bld) 0 % Normal 0 [facility] Comment on above: Performed By: #### C P, CRP, SED, CDP #### [facility] [address] [place] [address] Transaction Manager: Zion Sweet MD Lymphocytes (Bld) [#/Vol] 2.65 10*3/uL Normal 1.10-3.70 [facility] Comment on above: Performed By: #### C P, CRP, SED, CDP #### [facility] [address] [place] [address] Transaction Manager: Zion Sweet MD Lymphocytes/100 WBC (Bld) 22 % Low 24-43 [facility] Comment on above: Performed By: #### C P, CRP, SED, CDP #### [facility] [address] [place] [address] [place] [address] Transaction Manager: Zion Sweet MD MCH (RBC) [Entitic mass] 30.4 pg Normal 25.2-33.5 [facility] Comment on above: Performed By: #### C P, CRP, SED, CDP #### [facility] [address] [facility] [place] [address] Transaction Manager: Zion Sweet MD MCHC (RBC) [Mass/Vol] 31.6 g/dL Normal 28.4-34.8 [facility] Comment on above: Performed By: #### C P, CRP, SED, CDP #### [facility] [address] [place] [address] Transaction Manager: Zion Sweet MD MCV (RBC) [Entitic vol] 96.2 fL Normal 82.6-102.9 [facility] Comment on above: Performed By: #### C P, CRP, SED, CDP #### [facility] [address] [place] [address] Transaction Manager: Zion Sweet MD Monocytes (Bld) [#/Vol] 0.62 10*3/uL Normal 0.10-1.20 [facility] Comment on above: Performed By: #### C P, CRP, SED, CDP #### [facility] [address] [place] [address]. [place] [address] Transaction Manager: Zion Sweet MD Monocytes/100 WBC (Bld) 5 % Normal 3-[address] [facility] Comment on above: Performed By: #### C P, CRP, SED, CDP #### [facility] [address] [place] [address]. [place] [address] Transaction Manager: Zion Sweet MD Neutrophil (Seg) 72 % High 36-65 [facility] Comment on above: Performed By: #### C P, CRP, SED, CDP #### [facility] [address] [place] [address] Transaction Manager: Zion Sweet MD Platelet mean volume (Bld) [Entitic vol] 8.5 fL Normal 8.1-13.5 [facility] Comment on above: Performed By: #### C P, CRP, SED, CDP #### [facility] [address] [place] [address] Transaction Manager: Zion Sweet MD Platelets (Bld) [#/Vol] 428 10*3/uL Normal 138-453 [facility] Comment on above: Performed By: #### C P, CRP, SED, CDP #### [facility] [facility] [place] [address] Transaction Manager: Zion Sweet MD RBC (Bld) [#/Vol] 4.51 10*6/uL Normal 3.95-5.11 [facility] Comment on above: Performed By: #### C P, CRP, SED, CDP #### [facility] [address] [facility] [place] [address] Transaction Manager: Zion Sweet MD RBC morphology finding Nom (Bld) ANISOCYTOSIS PRESENT Normal [facility] Comment on above: Performed By: #### C P, CRP, SED, CDP #### [facility] [address] [facility] [place] [address] Transaction Manager: Zion Sweet MD WBC (Bld) [#/Vol] 12.1 10*3/uL High 3.5-11.3 [facility] Comment on above: Performed By: #### C P, CRP, SED, CDP #### [facility] [address] [place] [address] Transaction Manager: Zion Sweet MD Comp Metabolic Profon 2023 Albumin [Mass/Vol] 4.0 g/dL Normal 3.5-5.2 [facility] Comment on above: Performed By: #### C P, CRP, SED, CDP #### [facility] [address] [facility] [place] [address] Transaction Manager: Zion Sweet MD Alkaline Phos 119 U/L High 35-104 [facility] Comment on above: Performed By: #### C P, CRP, SED, CDP #### [facility] [address] [facility] [place] [address] Transaction Manager: Zion Sweet MD ALT [Catalytic activity/Vol] 9 U/L Normal 5-33 [facility] Comment on above: Performed By: #### C P, CRP, SED, CDP #### [facility] [place] [address] Transaction Manager: Zion Sweet MD Anion gap [Moles/Vol] 10 mmol/L Normal 9-17 [facility] Comment on above: Performed By: #### C P, CRP, SED, CDP #### [facility] [address] [place] [address]. [place] [address] Transaction Manager: Zion Sweet MD AST [Catalytic activity/Vol] 12 U/L Normal <32 [facility] Comment on above: Performed By: #### C P, CRP, SED, CDP #### [facility] [place] [address] Transaction Manager: Zion Sweet MD Bilirubin [Mass/Vol] 0.2 mg/dL Low 0.3-1.2 [facility] Comment on above: Performed By: #### C P, CRP, SED, CDP #### [facility] [address] [place] [address]. [place] [address] Transaction Manager: Zion Sweet MD BUN/CRE Ratio Can not be calculated Normal 9-20 [facility] Comment on above: Performed By: #### C P, CRP, SED, CDP #### [facility] [address] [place] [address] Transaction Manager: Zion Sweet MD Calcium [Mass/Vol] 9.3 mg/dL Normal 8.6-10.4 [facility] Comment on above: Performed By: #### C P, CRP, SED, CDP #### [facility] [facility] [place] [address] Transaction Manager: Zion Sweet MD Chloride [Moles/Vol] 94 mmol/L Low 98-107 [facility] Comment on above: Performed By: #### C P, CRP, SED, CDP #### [facility] [facility] [place] [address] Transaction Manager: Zion Sweet MD CO2 [Moles/Vol] 29 mmol/L Normal 20-31 [facility] Comment on above: Performed By: #### C P, CRP, SED, CDP #### [facility] [address] [place] [address]. [place] [address] Transaction Manager: Zion Sweet MD Creatinine [Mass/Vol] mg/dL Low 0.5-0.[address] [facility] Comment on above: Performed By: #### C P, CRP, SED, CDP #### [facility] [address] [place] [address]. [place] [address] Transaction Manager: Zion Sweet MD eGFR Can not be calculated Normal >[address] [facility] Comment on above: Result Comment: These results are not intended for use in patients <18 years of age. eGFR results are calculated without a race factor using the 2021 CKD-EPI equation. Careful clinical correlation is recommended, particularly when comparing to results calculated using previous equations. The CKD-EPI equation is less accurate in patients with extremes of muscle mass, extra-renal metabolism of creatine, excessive creatine ingestion, or following therapy that affects renal tubular secretion. Performed By: #### C P, CRP, SED, CDP #### [facility] [address] [facility] [place] [address] Transaction Manager: Zion Sweet MD Glucose [Mass/Vol] 111 mg/dL High 70-99 [facility] Comment on above: Performed By: #### C P, CRP, SED, CDP #### [facility] [place] [address] Transaction Manager: Zion Sweet MD Potassium [Moles/Vol] 3.5 mmol/L Low 3.7-5.3 [facility] Comment on above: Performed By: #### C P, CRP, SED, CDP #### [facility] [place] [address] Transaction Manager: Zion Sweet MD Protein [Mass/Vol] 6.9 g/dL Normal 6.4-8.3 [facility] Comment on above: Performed By: #### C P, CRP, SED, CDP #### [facility] [address] [place] [address]. [place] [address] Transaction Manager: Zion Sweet MD Sodium [Moles/Vol] 133 mmol/L Low 135-144 [facility] Comment on above: Performed By: #### C P, CRP, SED, CDP #### [facility] [address] [place] [address]. [place] [address] Transaction Manager: Zion Sweet MD Urea nitrogen [Mass/Vol] 7 mg/dL Normal 6-20 [facility] Comment on above: Performed By: #### C P, CRP, SED, CDP #### [facility] [address] [place], [place] [phone] Transaction Manager: Zion Sweet MD Lactic Acidon 09-27-2023 Lactate [Moles/Vol] 0.9 mmol/L Normal 0.5-2.2 [facility] Comment on above: Performed By: #### L ACTIC ####[facility] [address] [facility] [place] [address] Lab Director: Zion Sweet MD MRI HIP [...] Karen Montanez MD 09/27/23 Final result Normal [facility] Sedimentation Rateon 024 Sedimentation Rate 15 mm/Hr Normal 0-30 [facility] Comment on above: Performed By: #### C P, CRP, SED, CDP #### [facility] [address] [place] [address] Transaction Manager: Zion Sweet MD Automated epithelial cells c ount in urine sediment (number/area)Ordered By: Nabil Maya on 09-26-2023 Epithelial cells Auto (Urine sed) [#/Area] 5-9 [HPF] 0-2 [facility] Automated erythrocytes count in urine sediment (number/area)Ordered By: Nabil Maya on 09-26-2023 RBC Auto (Urine sed) [#/Area] 0-1 [HPF] 0-4 [facility] Automated leukocytes count i n urine sediment (number/area)Ordered By: Nabil Maya on 09-26-2023 WBC Auto (Urine sed) [#/Area] 10-19 [HPF] 0-4 [facility] Automated urine hyaline cast s count (number/volume)Ordered By: Nabil Maya on 09-26-2023 Hyaline casts Auto (U) [#/Vol] None seen [LPF] 0-1 [facility] Basophils Auto (Bld) [#/Vol] Ordered By: Nabil Maya on 09-26-2023 Basophils (Bld) [#/Vol] 0.1 10*3/uL 0.0-0.2 [facility] Basophils/100 WBC Auto (Bld) Ordered By: Nabil Maya on 09-26-2023 Basophils/100 WBC (Bld) 0.6 % . F [facility] [facility] Test strip Ql (U)O rdered By: Nabil Maya on 09-26-2023 Bilirubin Ql (U) Negative Negative [facility] Calcium [Mass/volume] in Ser um or PlasmaOrdered By: Nabil Maya on 09-26-2023 Calcium [Mass/Vol] 8.9 mg/dL 8.6-10.3 [facility] Carbon dioxide, total [Moles /volume] in Serum or PlasmaOrdered By: Nabil Maya on 09-26-2023 CO2 [Moles/Vol] 25.2 mmol/L 21.0-31.0 [facility] Chloride [Moles/volume] in S jayshree or PlasmaOrdered By: Nabil Maya on 09-26-2023 Chloride [Moles/Vol] 102 mmol/L 98-107 [facility] Color Auto (U)Ordered By: Lonnie Maya on 09-26-2023 Color (U) Yellow Yellow [facility] Creatinine [Mass/volume] in Serum or PlasmaOrdered By: Nabil Maya on 09-26-2023 Creatinine [Mass/Vol] 0.55 mg/dL 0.60-1.20 [facility] Eosinophils Auto (Bld) [#/Vo l]Ordered By: Nabil Maya on 09-26-2023 Eosinophils (Bld) [#/Vol] 0.1 10*3/uL 0.0-0.45 [facility] Eosinophils/100 WBC Auto (Bl d)Ordered By: Nabil Maya on 09-26-2023 Eosinophils/100 WBC (Bld) 1.0 % . [facility] Erythrocyte distribution wid th Auto (RBC) [Ratio]Ordered By: Nabil Maya on 09-26-2023 Erythrocyte distribution width (RBC) [Ratio] 15.3 % 11.9-15.3 [facility] Glucose [Mass/volume] in Ser um or PlasmaOrdered By: Nabil Maya on 09-26-2023 Glucose [Mass/Vol] 112 mg/dL 70-100 [facility] Comment on above: ADA recommended refe rence rangeRandom Glucose Reference Range is dependent on time and content of last meal. Glucose of more than 200 mg/dL in a nonstressed, ambulatory subject supports the diagnosis of Diabetes Mellitus. Hematocrit Auto (Bld) [Volum e fraction]Ordered By: Nabil Maya on 09-26-2023 Hematocrit (Bld) [Volume fraction] 40.6 % 34.0-46.4 [facility] Hemoglobin [Mass/volume] in BloodOrdered By: Nabil Maya on 09-26-2023 Hemoglobin (Bld) [Mass/Vol] 13.7 g/dL 11.8-15.4 [facility] INR in Platelet poor plasma by Coagulation assayOrdered By: Nabil Maya on 09-26-2023 INR Coag (PPP) [Relative time] 0.9 {INR} [facility] Comment on above: INR Therapeutic Rang e [...] 09-26-2023 Ketones (U) [Mass/Vol] Negative Negative [facility] Lactate [Moles/volume] in Se rum or PlasmaOrdered By: Nabil Maya on 09-26-2023 Lactate [Moles/Vol] 0.8 mmol/L 0.5-2.2 [facility] Leukocytes [#/volume] correc rajani for nucleated erythrocytes in Blood by Automated counOrdered By: Nabil Maya on 09-26-2023 WBC corrected for nucl RBC Auto (Bld) [#/Vol] 11.5 10*3/uL 3.8-11.6 [facility] Lymphocytes Auto (Bld) [#/Vo l]Ordered By: Nabil Maya on 09-26-2023 Lymphocytes (Bld) [#/Vol] 3.3 10*3/uL 1.00-4.8 [facility] Lymphocytes/100 WBC Auto (Bl d)Ordered By: Nabil Maya on 09-26-2023 Lymphocytes/100 WBC (Bld) 28.2 % . [facility] MCH Auto (RBC) [Entitic mass ]Ordered By: Nabil Maya on 09-26-2023 MCH (RBC) [Entitic mass] 31.0 pg 24.7-34.3 [facility] MCHC Auto (RBC) [Mass/Vol]Or dered By: Nabil Maya on 09-26-2023 MCHC (RBC) [Mass/Vol] 33.7 g/dL 32.0-35.0 [facility] MCV Auto (RBC) [Entitic vol] Ordered By: Nabil Maya on 09-26-2023 MCV (RBC) [Entitic vol] 92.0 fL 80-100 [facility] Monocyte distribution width [Entitic volume] in Blood by AutomatedOrdered By: Nabil Maya on 09-26-2023 Monocyte distribution width Auto (Bld) [Entitic vol] 16.11 % 0.00-20.00 [facility] Monocytes Auto (Bld) [#/Vol] Ordered By: Nabil Maya on 09-26-2023 Monocytes (Bld) [#/Vol] 0.7 10*3/uL 0.0-0.8 [facility] Monocytes/100 WBC Auto (Bld) Ordered By: Nabil Maya on 09-26-2023 Monocytes/100 WBC (Bld) 5.6 % . [facility] Neutrophils Auto (Bld) [#/Vo l]Ordered By: Nabil Maya on 09-26-2023 Neutrophils (Bld) [#/Vol] 7.4 10*3/uL 1.8-7.7 [facility] Neutrophils/100 WBC Auto (Bl d)Ordered By: Nabil Maya on 09-26-2023 Neutrophils/100 WBC (Bld) 64.6 % . [facility] Nitrite Test strip Ql (U)Ord ered By: Nabil Maya on 09-26-2023 Nitrite Ql (U) Positive Negative [facility] No Panel InformationOrdered By: Nabil Maya on 09-26-2023 Estimated GFR (CKD-EPI) > 60.0 mL/Min [facility] Creatinine Clearance (Chem 106.90 [facility] Nucleated erythrocytes [Pres ence] in Blood by Automated countOrdered By: Nabil Maya on 09-26-2023 Nucleated RBC Auto Ql (Bld) 0.1 /100{WBC} 0-0.5 [facility] Platelet mean volume Auto (B ld) [Entitic vol]Ordered By: Nabil Maya on 09-26-2023 Platelet mean volume (Bld) [Entitic vol] 6.9 fL 6.3-10.7 [facility] Platelets Auto (Bld) [#/Vol] Ordered By: Nabil Maya on 09-26-2023 Platelets (Bld) [#/Vol] 442 10*3/uL 150-450 [facility] Potassium [Moles/volume] in Serum or PlasmaOrdered By: Nabil Maya on 09-26-2023 Potassium [Moles/Vol] 3.5 mmol/L 3.5-5.1 [facility] Protein Auto test strip (U) [Mass/Vol]Ordered By: Nabil Maya on 09-26-2023 Protein (U) [Mass/Vol] Negative Negative [facility] Prothrombin time (PT)Ordered By: Nabil Maya on 09-26-2023 PT Coag (PPP) [Time] 10.3 s 9.0-12.9 [facility] Comment on above: A hematocrit value g reater than 55% may lead to inaccurate results in coagulation testing. Patients having hematocrit values >55% require a special collection tube for coagulation studies. Please contact the laboratory at [phone] for redraw instructions. RBC Auto (Bld) [#/Vol]Ordere d By: Nabil Maya on 09-26-2023 RBC (Bld) [#/Vol] 4.42 10*6/uL 3.60-5.00 [facility] Serum or plasma anion gap de terminationOrdered By: Nabil Maya on 09-26-2023 Anion gap [Moles/Vol] 11.3 mmol/L 6.0-15.0 [facility] Sodium [Moles/volume] in Ser um or PlasmaOrdered By: Nabil Maya on 09-26-2023 Sodium [Moles/Vol] 135 mmol/L 136-145 [facility] Specific gravity Auto test s trip (U) [Rel density]Ordered By: Nabil Maya on 09-26-2023 Specific gravity (U) [Rel density] 1.019 1.001-1.03 0 [facility] Urea nitrogen [Mass/volume] in Serum or PlasmaOrdered By: Nabil Maya on 09-26-2023 Urea nitrogen [Mass/Vol] 8 mg/dL 7-25 [facility] Urine bacteria detection by automated methodOrdered By: Nabil Maya on 09-26-2023 Bacteria Auto Ql (U) 4+ None Seen [facility] Urine clarity by refractomet ry automatedOrdered By: Nabil Maya on 09-26-2023 Clarity Refractometry automated (U) Slightly cloudy Clear [facility] Urine glucose measurement by automated test strip (mass/volume)Ordered By: Nabil Maya on 09-26-2023 Glucose Auto test strip (U) [Mass/Vol] Normal mg/dL Normal [facility] Urine hemoglobin detection b y automated test stripOrdered By: Nabil Maya on 09-26-2023 Hemoglobin Auto test strip Ql (U) Negative Negative [facility] Urine leukocyte esterase det ection by automated test stripOrdered By: Nabil Maya on 09-26-2023 Leukocyte esterase Auto test strip Ql (U) 3+ Negative [facility] Urobilinogen Auto test strip (U) [Mass/Vol]Ordered By: Nabil Maya on 09-26-2023 Urobilinogen (U) [Mass/Vol] Normal mg/dL Normal [facility] WBC Auto (Bld) [#/Vol]Ordere d By: Nabil Maya on 09-26-2023 WBC (Bld) [#/Vol] 11.5 10*3/uL 3.8-11.6 [facility] pH Auto test strip (U)Ordere d By: Nabil Maya on 09-26-2023 pH (U) 6.0 [pH] 5.0-9.0 [facility] FLUORO FOR SURGICAL PROCEDUR ESon 08-30-2023 FLUORO FOR SURGICAL PROCEDURES Radiology exam is complete. No Radiologist dictation. Please follow up with ordering provider. Final result Normal [facility] Basic Metabolic Profon 08-24 Anion gap [Moles/Vol] 10 mmol/L Normal 9-17 [facility] Comment on above: Performed By: #### B MP, CBC #### [facility] [address] [place], [place] [id number] Transaction Manager: Zion Sweet MD BUN/CRE Ratio 13 Normal 9-20 [facility] Comment on above: Performed By: #### B MP, CBC #### [facility] [address] [place], [place] [id number] Transaction Manager: Zion Sweet MD Calcium [Mass/Vol] 9.3 mg/dL Normal 8.6-10.4 [facility] Comment on above: Performed By: #### B MP, CBC #### [facility] [address] [place] [address] Transaction Manager: Zion Sweet MD Chloride [Moles/Vol] 97 mmol/L Low 98-107 [facility] Comment on above: Performed By: #### B MP, CBC #### [facility] [address] [place] [address] Transaction Manager: Zion Sweet MD CO2 [Moles/Vol] 26 mmol/L Normal 20-31 [facility] Comment on above: Performed By: #### B MP, CBC #### [facility] [place] [address] Transaction Manager: Zion Sweet MD Creatinine [Mass/Vol] 0.6 mg/dL Normal 0.5-0.9 [facility] Comment on above: Performed By: #### B MP, CBC #### [facility] [place] [address] Transaction Manager: Zion Sweet MD GFR/1.73 sq M.predicted among non-blacks MDRD (S/P/Bld) [Vol rate/Area] mL/min/{1.73_m2} Normal >60 [facility] Comment on above: Result Comment: These results [...] Performed By: #### B MP, CBC #### [facility] [address] [place] [address] Transaction Manager: Zion Sweet MD Glucose [Mass/Vol] 99 mg/dL Normal 70-99 [facility] Comment on above: Performed By: #### B MP, CBC #### [facility] [address] [place] [address] Transaction Manager: Zion Sweet MD Potassium [Moles/Vol] 4.1 mmol/L Normal 3.7-5.3 [facility] Comment on above: Performed By: #### B MP, CBC #### [facility] [address] [place] [address] Transaction Manager: Zion Sweet MD Sodium [Moles/Vol] 133 mmol/L Low 135-144 [facility] Comment on above: Performed By: #### B MP, CBC #### [facility] [address] [place] [address] Transaction Manager: Zion Sweet MD Urea nitrogen [Mass/Vol] 8 mg/dL Normal 6-20 [facility] Comment on above: Performed By: #### B MP, CBC #### [facility] [facility] [place] [address] Transaction Manager: Zion Sweet MD CBCon 08-24-2023 Erythrocyte distribution width (RBC) [Ratio] 15.0 % High 11.8-14.4 [facility] Comment on above: Performed By: #### B MP, CBC #### [facility] [facility] [place] [address] Transaction Manager: Zion Sweet MD Hematocrit (Bld) [Volume fraction] 41.4 % Normal 36.3-47.1 [facility] Comment on above: Performed By: #### B MP, CBC #### [facility] [place] [address] Transaction Manager: Zion Sweet MD Hemoglobin (Bld) [Mass/Vol] 13.7 g/dL Normal 11.9-15.1 [facility] Comment on above: Performed By: #### B MP, CBC #### [facility] [place] [address] Transaction Manager: Zion Sweet MD MCH (RBC) [Entitic mass] 30.8 pg Normal 25.2-33.5 [facility] Comment on above: Performed By: #### B MP, CBC #### [facility] [address] [place] [address] Transaction Manager: Zion Sweet MD MCHC (RBC) [Mass/Vol] 33.1 g/dL Normal 28.4-34.8 [facility] Comment on above: Performed By: #### B MP, CBC #### [facility] [address] [place] [address] Transaction Manager: Zion Sweet MD MCV (RBC) [Entitic vol] 93.0 fL Normal 82.6-102.[address] [facility] Comment on above: Performed By: #### B MP, CBC #### [facility] [address] [place] [address] Transaction Manager: Zion Sweet MD NRBC Automated 0.0 per 100 WBC Normal 0.0 [facility] Comment on above: Performed By: #### B MP, CBC #### [facility] [address] [place] [address] Transaction Manager: Zion Sweet MD Platelet mean volume (Bld) [Entitic vol] 8.9 fL Normal 8.1-13.5 [facility] Comment on above: Performed By: #### B MP, CBC #### [facility] [address] [place] [address]. [place] [address] Transaction Manager: Zion Sweet MD Platelets (Bld) [#/Vol] 369 10*3/uL Normal 138-453 [facility] Comment on above: Performed By: #### B MP, CBC #### [facility] [address] [place] [address] Transaction Manager: Zion Sweet MD RBC (Bld) [#/Vol] 4.45 10*6/uL Normal 3.95-5.11 [facility] Comment on above: Performed By: #### B MP, CBC #### [facility] [address] [place] [address] Transaction Manager: Zino Sweet MD WBC (Bld) [#/Vol] 6.2 10*3/uL Normal 3.5-11.3 [facility] Comment on above: Performed By: #### B MP, CBC #### [facility] [address] [place] [address] Transaction Manager: Zion Sweet MD Outside Records Officeon Outside Records Office [id number]#1.00TIF F [facility] Referrals Officeon 3 Referrals Office [id number]#1.00TIF F [facility] Outside Records Officeon Outside Records Office [id number]#1.00CD :127 Normal [facility] Radiology Outside Office Cloth Examiner Machine yon 04-13-2023 Radiology Outside Office Copy [id number]#1.00CD :127 [facility] Referrals Officeon 3 Referrals Office [id number]#1.00C D:127 Normal [facility] Basophils Auto (Bld) [#/Vol] Ordered By: Eloy Mcdaniel on 04-12-2023 Basophils (Bld) [#/Vol] 0.0 10*3/uL 0.0-0.2 [facility] Basophils/100 WBC Auto (Bld) Ordered By: Eloy Mcdaniel on 04-12-2023 Basophils/100 WBC (Bld) 0.4 % . [facility] Calcium [Mass/volume] in Ser um or PlasmaOrdered By: Eloy Mcdainel on 04-12-2023 Calcium [Mass/Vol] 10.2 mg/dL 8.6-10.3 [facility] Carbon dioxide, total [Moles /volume] in Serum or PlasmaOrdered By: Eloy Mcdaniel on 04-12-2023 CO2 [Moles/Vol] 31.4 mmol/L 21.0-31.0 [facility] Chloride [Moles/volume] in S jayshree or PlasmaOrdered By: Eloy Mcdaniel on 04-12-2023 Chloride [Moles/Vol] 99 mmol/L 98-107 [facility] Consent for Treatmenton 03-16 Consent for Treatment [id number]#1.00CD :127 Normal [facility] Consultation Noteon 04-12-20 Consultation Note Patient: MACIE [...] list: All Problems Anxiety / SNOMED CT 40113965 / Confirmed Chronic neck pain with history of cervical spinal surgery / SNOMED CT 0873037909 / Confirmed COPD (chronic obstructive pulmonary disease) / SNOMED CT 08604610 / Confirmed Depression / SNOMED CT 96505149 / Confirmed Heartburn / SNOMED CT 48227178 / Confirmed Smoker / SNOMED CT 658466768 / Confirmed Added secondary to documentation in Social History. Thoracic outlet syndrome to both arms / SNOMED CT 846107009 / Confirmed Histories Past Medical History: No active or resolved past medical history items have been selected or recorded. Family History: Clot Mother () Procedure history: Fusion of lumbar spine (236592229) on 01/19/2021 at 45 Years. Cervical spinal fusion (840303718) on 10/30/2019 at 44 Years. Appendectomy (117152515). History of cervical spine surgery (9447335864). Comments: 07/31/2019 14:14 SISSY Cadet RNMary Kate C4-6 fusion section (35890245). H/O: hysterectomy (847284539). Ankle (9594013). Comments: 07/31/2019 14:16 SISSY Cadet RNMary Kate Left ankle Fusion of lumbar spine (645087659). Comments: 07/31/2019 14:17 SISSY Cadet RNMary Kate L4-5 fusion and replacement H/O: tubal ligation (633150990). Social History Social & Psychosocial Habits Alcohol [...] cord. Impre (more content not included)... Normal [facility] Comment on above: Result Comment: Elec tronically Signed By: Whit BONILLA, Star Perez\.br\Date and Time Signed: 04/12/23 14:34 EDT Creatinine [Mass/volume] in Serum or PlasmaOrdered By: Eloy Mcdaniel on 04-12-2023 Creatinine [Mass/Vol] 0.64 mg/dL 0.60-1.20 [facility] Eosinophils Auto (Bld) [#/Vo l]Ordered By: Eloy Mcdaniel on 04-12-2023 Eosinophils (Bld) [#/Vol] 0.0 10*3/uL 0.0-0.45 [facility] Eosinophils/100 WBC Auto (Bl d)Ordered By: Eloy Mcdaniel on 04-12-2023 Eosinophils/100 WBC (Bld) 0.1 % . [facility] Erythrocyte distribution wid th Auto (RBC) [Ratio]Ordered By: Eloy Mcdaniel on 04-12-2023 Erythrocyte distribution width (RBC) [Ratio] 16.8 % 11.9-15.3 [facility] Glucose [Mass/volume] in Ser um or PlasmaOrdered By: Eloy Mcdaniel on 04-12-2023 Glucose [Mass/Vol] 103 mg/dL 70-100 [facility] Comment on above: ADA recommended refe rence rangeRandom Glucose Reference Range is dependent on time and content of last meal. Glucose of more than 200 mg/dL in a nonstressed, ambulatory subject supports the diagnosis of Diabetes Mellitus. HIPAA Forms Officeon 023 HIPAA Forms Office [id number]#1.00C D:127 Normal [facility] Hematocrit Auto (Bld) [Volum e fraction]Ordered By: Eloy Mcdaniel on 04-12-2023 Hematocrit (Bld) [Volume fraction] 40.3 % 34.0-46.4 [facility] Hemoglobin [Mass/volume] in BloodOrdered By: Eloy Mcdaniel on 04-12-2023 Hemoglobin (Bld) [Mass/Vol] 13.3 g/dL 11.8-15.4 [facility] Legal Correspondence Officeo n 04-12-2023 Legal Correspondence Office [id number]#1.00C D:127 Normal [facility] Legal Correspondence Office [id number]#1.00C D:127 Normal [facility] Leukocytes [#/volume] correc rajani for nucleated erythrocytes in Blood by Automated counOrdered By: Eloy Mcdaniel on 04-12-2023 WBC corrected for nucl RBC Auto (Bld) [#/Vol] 10.3 10*3/uL 3.8-11.6 [facility] Lymphocytes Auto (Bld) [#/Vo l]Ordered By: Eloy Mcdaniel on 04-12-2023 Lymphocytes (Bld) [#/Vol] 3.1 10*3/uL 1.00-4.8 [facility] Lymphocytes/100 WBC Auto (Bl d)Ordered By: Eloy Mcdaniel on 04-12-2023 Lymphocytes/100 WBC (Bld) 30.1 % . [facility] MCH Auto (RBC) [Entitic mass ]Ordered By: Eloy Mcdaniel on 04-12-2023 MCH (RBC) [Entitic mass] 29.6 pg 24.7-34.3 [facility] MCHC Auto (RBC) [Mass/Vol]Or dered By: Eloy Mcdaniel on 04-12-2023 MCHC (RBC) [Mass/Vol] 32.9 g/dL 32.0-35.0 [facility] MCV Auto (RBC) [Entitic vol] Ordered By: Eloy Mcdaniel on 04-12-2023 MCV (RBC) [Entitic vol] 89.9 fL 80-100 [facility] Monocytes Auto (Bld) [#/Vol] Ordered By: Eloy Mcdaniel on 04-12-2023 Monocytes (Bld) [#/Vol] 0.8 10*3/uL 0.0-0.8 [facility] Monocytes/100 WBC Auto (Bld) Ordered By: Eloy Mcdaniel on 04-12-2023 Monocytes/100 WBC (Bld) 7.6 % . [facility] Neutrophils Auto (Bld) [#/Vo l]Ordered By: Eloy Mcdaniel on 04-12-2023 Neutrophils (Bld) [#/Vol] 6.4 10*3/uL 1.8-7.7 [facility] Neutrophils/100 WBC Auto (Bl d)Ordered By: Eloy Mcdaniel on 04-12-2023 Neutrophils/100 WBC (Bld) 61.8 % . [facility] No Panel InformationOrdered By: Eloy Mcdaniel on 04-12-2023 Estimated GFR (CKD-EPI) > 60.0 mL/Min [facility] Creatinine Clearance (Chem N/A [facility] Nucleated erythrocytes [Pres ence] in Blood by Automated countOrdered By: Eloy Mcdaniel on 04-12-2023 Nucleated RBC Auto Ql (Bld) 0.1 /100{WBC} 0-0.5 [facility] Office/Clinic Note-Physician on 04-12-2023 Office/Clinic Note-Physician [id number]#1.00C D:127 Normal [facility] Patient Correspondenceon Patient Correspondence [id number]#1.00C D:127 Normal [facility] Patient Correspondence [id number]#1.00C D:127 Normal [facility] Patient Correspondence [id number]#1.00C D:127 [facility] Patient Correspondence [id number]#1.00C D:127 Normal [facility] Patient Correspondence [id number]#1.00C D:127 Normal [facility] Patient History Officeon Patient History Office [id number]#1.00C D:127 Normal [facility] Platelet mean volume Auto (B ld) [Entitic vol]Ordered By: Eloy Mcdaniel on 04-12-2023 Platelet mean volume (Bld) [Entitic vol] 8.2 fL 6.3-10.7 [facility] Platelets Auto (Bld) [#/Vol] Ordered By: Eloy Mcdaniel on 04-12-2023 Platelets (Bld) [#/Vol] 433 10*3/uL 150-450 [facility] Potassium [Moles/volume] in Serum or PlasmaOrdered By: Eloy Mcdaniel on 04-12-2023 Potassium [Moles/Vol] 3.7 mmol/L 3.5-5.1 [facility] RBC Auto (Bld) [#/Vol]Ordere d By: Eloy Mcdaniel on 04-12-2023 RBC (Bld) [#/Vol] 4.49 10*6/uL 3.60-5.00 [facility] Radiology Outside Office Cloth Examiner Machine yon 04-12-2023 Radiology Outside Office Copy [id number]#1.00C D:127 Normal [facility] Radiology Outside Office Copy [id number]#1.00C D:127 Normal [facility] Radiology Outside Office Copy [id number]#1.00C D:127 Normal [facility] Radiology Outside Office Copy [id number]#1.00C D:127 Normal [facility] Radiology Outside Office Copy [id number]#1.00C D:127 Normal [facility] Radiology Outside Office Copy [id number]#1.00C D:127 Normal [facility] Serum or plasma anion gap de terminationOrdered By: Eloy Mcdaniel on 08-29-2023 Anion gap [Moles/Vol] 12.3 mmol/L 6.0-15.0 [facility] Sodium [Moles/volume] in Ser um or PlasmaOrdered By: Eloy Mcdaniel on 04-12-2023 Sodium [Moles/Vol] 139 mmol/L 136-145 [facility] Thyrotropin [Units/volume] i n Serum or PlasmaOrdered By: Eloy Mcdaniel on 04-12-2023 TSH Qn 1.21 m[IU]/L 0.45-5.33 [facility] Thyroxine (T4) free [Mass/vo lume] in Serum or PlasmaOrdered By: Eloy Mcdaniel on 04-12-2023 Free T4 [Mass/Vol] 0.79 ng/dL 0.61-1.12 [facility] Urea nitrogen [Mass/volume] in Serum or PlasmaOrdered By: Eloy Mcdaniel on 04-12-2023 Urea nitrogen [Mass/Vol] 7 mg/dL 7-25 [facility] WBC Auto (Bld) [#/Vol]Ordere d By: Eloy Mcdaniel on 04-12-2023 WBC (Bld) [#/Vol] 10.3 10*3/uL 3.8-11.6 [facility] Outside Records Officeon Outside Records Office [id number]#1.00CD :127 Normal [facility] Radiology Outside Office Cloth Examiner Machine yon 03-22-2023 Radiology Outside Office Copy [id number]#1.00CD :127 Normal [facility] Referrals Officeon 3 Referrals Office [id number] :[id number] Normal [facility] CNPNon 11-09-2022 CNPN Telephone ([employer]) -------- MACIE CLOUD ([id number]) 1975 F Date Time Provider Department 11/09/22 CATHI DIA KASSANDRA During your visit today, we recorded the following information about you: [facility]09/2022 9:26 AM Signed Smoking Cessation Navigation Outcome of contact: Left Message Comments: A voicemail has been left for this patient regarding Tobacco Cessation support options. If this patient has any further questions they can email us at or call us at [phone]. [employer] Worker/Smoking Cessation Navigator: Cathi [facility]UNC [facility] Allergies As of Date: 11/09/2022 (No Known [...] Status:Closed by CATHI DIA on 11/09/22 Normal [facility] Alanine aminotransferase [En zymatic activity/volume] in Serum or PlasmaOrdered By: Hussain Cristobal on 10-28-2022 ALT [Catalytic activity/Vol] 21 U/L 7-52 [facility] Albumin [Mass/volume] in Ser um or Plasma by Bromocresol green (BCG) dye binding methoOrdered By: Hussain Cristobal on 10-28-2022 Albumin BCG dye [Mass/Vol] 4.5 g/dL 3.5-5.7 [facility] Alkaline phosphatase [Enzyma tic activity/volume] in Serum or PlasmaOrdered By: Hussain Cristobal on 10-28-2022 ALP [Catalytic activity/Vol] 91 U/L 34-104 [facility] Aspartate aminotransferase [ Enzymatic activity/volume] in Serum or PlasmaOrdered By: Hussain Cristobal on 10-28-2022 AST [Catalytic activity/Vol] 26 U/L 13-39 [facility] Basophils Auto (Bld) [#/Vol] Ordered By: Hussain Cristobal on 10-28-2022 Basophils (Bld) [#/Vol] 0.0 10*3/uL 0.0-0.2 [facility] Basophils/100 WBC Auto (Bld) Ordered By: Hussain Cristobal on 10-28-2022 Basophils/100 WBC (Bld) 0.2 % . [facility] Bilirubin.total [Mass/volume ] in Serum or PlasmaOrdered By: Hussain Cristobal on 10-28-2022 Bilirubin [Mass/Vol] 0.3 mg/dL 0.3-1.0 [facility] Calcium [Mass/volume] in Ser um or PlasmaOrdered By: Hussain Cristobal on 10-28-2022 Calcium [Mass/Vol] 9.8 mg/dL 8.6-10.3 [facility] Carbon dioxide, total [Moles /volume] in Serum or PlasmaOrdered By: Hussain Cristobal on 03-16-2023 CO2 [Moles/Vol] 28.9 mmol/L 21.0-31.0 [facility] Chloride [Moles/volume] in S jayshree or PlasmaOrdered By: Hussain Cristobal on 10-28-2022 Chloride [Moles/Vol] 97 mmol/L 98-107 [facility] Creatinine [Mass/volume] in Serum or PlasmaOrdered By: Hussain Cristobal on 10-28-2022 Creatinine [Mass/Vol] 0.62 mg/dL 0.60-1.20 [facility] Eosinophils Auto (Bld) [#/Vo l]Ordered By: Hussain Cristobal on 10-28-2022 Eosinophils (Bld) [#/Vol] 0.0 10*3/uL 0.0-0.45 [facility] Eosinophils/100 WBC Auto (Bl d)Ordered By: Hussain Cristobal on 10-28-2022 Eosinophils/100 WBC (Bld) 0.0 % . [facility] Erythrocyte distribution wid th Auto (RBC) [Ratio]Ordered By: Hussain Cristobal on 10-28-2022 Erythrocyte distribution width (RBC) [Ratio] 15.8 % 11.9-15.3 [facility] Globulin Calc (S) [Mass/Vol] Ordered By: Hussain Cristobal 10-28-2022 Globulin (S) [Mass/Vol] 3.4 g/dL [facility] Glucose [Mass/volume] in Ser um or PlasmaOrdered By: Hussain Cristobal on 10-28-2022 Glucose [Mass/Vol] 123 mg/dL 74-109 [facility] Comment on above: ADA recommended refe rence rangeRandom Glucose Reference Range is dependent on time and content of last meal. Glucose of more than 200 mg/dL in a nonstressed, ambulatory subject supports the diagnosis of Diabetes Mellitus. Hematocrit Auto (Bld) [Volum e fraction]Ordered By: Hussain Cristobal on 10-28-2022 Hematocrit (Bld) [Volume fraction] 38.6 % 34.0-46.4 [facility] Hemoglobin [Mass/volume] in BloodOrdered By: Hussain Critsobal on 10-28-2022 Hemoglobin (Bld) [Mass/Vol] 12.9 g/dL 11.8-15.4 [facility] Laboratory - Chemistry and C hemistry - challengeOrdered By: Hussain Cristobal on 10-28-2022 GFR/1.73 sq M.predicted MDRD (S/P/Bld) [Vol rate/Area] mL/min/{1.73_m2} [facility] Leukocytes [#/volume] correc rajani for nucleated erythrocytes in Blood by Automated counOrdered By: Hussain Cristobal on 10-28-2022 WBC corrected for nucl RBC Auto (Bld) [#/Vol] 13.4 10*3/uL 3.8-11.6 [facility] Lymphocytes Auto (Bld) [#/Vo l]Ordered By: Hussain Cristobal on 10-28-2022 Lymphocytes (Bld) [#/Vol] 1.3 10*3/uL 1.00-4.8 [facility] Lymphocytes/100 WBC Auto (Bl d)Ordered By: Hussain Cristobal on 10-28-2022 Lymphocytes/100 WBC (Bld) 10.0 % . [facility] MCH Auto (RBC) [Entitic mass ]Ordered By: Hussain Cristobal on 10-28-2022 MCH (RBC) [Entitic mass] 29.6 pg 24.7-34.3 [facility] MCHC Auto (RBC) [Mass/Vol]Or dered By: Hussain Cristobal on 10-28-2022 MCHC (RBC) [Mass/Vol] 33.4 g/dL 32.0-35.0 [facility] MCV Auto (RBC) [Entitic vol] Ordered By: Hussain Cristobal on 10-28-2022 MCV (RBC) [Entitic vol] 88.7 fL 80-100 [facility] Monocyte distribution width [Entitic volume] in Blood by AutomatedOrdered By: Hussain Cristobal on 10-28-2022 Monocyte distribution width Auto (Bld) [Entitic vol] 13.39 % 0.00-20.00 [facility] Monocytes Auto (Bld) [#/Vol] Ordered By: Hussain Cristobal on 10-28-2022 Monocytes (Bld) [#/Vol] 0.2 10*3/uL 0.0-0.8 [facility] Monocytes/100 WBC Auto (Bld) Ordered By: Hussain Cristobal on 10-28-2022 Monocytes/100 WBC (Bld) 1.9 % . [facility] Neutrophils Auto (Bld) [#/Vo l]Ordered By: Hussain Cristobal on 10-28-2022 Neutrophils (Bld) [#/Vol] 11.8 10*3/uL 1.8-7.7 [facility] Neutrophils/100 WBC Auto (Bl d)Ordered By: Hussain Cristobal on 10-28-2022 Neutrophils/100 WBC (Bld) 87.9 % . [facility] No Panel InformationOrdered By: Hussain Cristobal on 10-28-2022 Pharmacy Creatinine Clearance (Chem 91.96 [facility] Nucleated erythrocytes [Pres ence] in Blood by Automated countOrdered By: Hussain Cristobal on 10-28-2022 Nucleated RBC Auto Ql (Bld) 0.0 /100{WBC} 0-0.5 [facility] Platelet mean volume Auto (B ld) [Entitic vol]Ordered By: Hussain Cristobal on 10-28-2022 Platelet mean volume (Bld) [Entitic vol] 6.9 fL 6.3-10.7 [facility] Platelets Auto (Bld) [#/Vol] Ordered By: Hussain Cristobal on 10-28-2022 Platelets (Bld) [#/Vol] 528 10*3/uL 150-450 [facility] Potassium [Moles/volume] in Serum or PlasmaOrdered By: Hussain Cristobal on 10-28-2022 Potassium [Moles/Vol] 4.1 mmol/L 3.5-5.1 [facility] Protein [Mass/volume] in Ser um or PlasmaOrdered By: Hussain Cristoabl on 10-28-2022 Protein [Mass/Vol] 7.9 g/dL 6.4-8.9 [facility] RBC Auto (Bld) [#/Vol]Ordere d By: Hussain Cristobal on 10-28-2022 RBC (Bld) [#/Vol] 4.36 10*6/uL 3.60-5.00 [facility] Serum or plasma albumin/glob ulin mass ratioOrdered By: Hussain Cristobal on 10-28-2022 Albumin/Globulin [Mass ratio] 1.3 {ratio} [facility] Serum or plasma anion gap de terminationOrdered By: Hussian Cristobal on 10-28-2022 Anion gap [Moles/Vol] 13.2 mmol/L 6.0-15.0 [facility] Sodium [Moles/volume] in Ser um or PlasmaOrdered By: Hussain Cristobal on 10-28-2022 Sodium [Moles/Vol] 135 mmol/L 136-145 [facility] Urea nitrogen [Mass/volume] in Serum or PlasmaOrdered By: Hussain Cristobal on 10-28-2022 Urea nitrogen [Mass/Vol] 10 mg/dL 7-25 [facility] WBC Auto (Bld) [#/Vol]Ordere d By: Hussain Cristobal on 10-28-2022 WBC (Bld) [#/Vol] 13.4 10*3/uL 3.8-11.6 [facility] Coding Summaryon 10-13-2022 Coding Summary HTMLBase 64 GaswtvbyWFp9lTm+PGhlYWQ+ VS5NNXDaZ89ahOUnzP9GY7pI SC3OOCTWGMIAUV5MPQ3suCC4 LEvtZ1UieaHo CsnbhPGjKO64LNx0HYD3pLuw XFstzA3qjUNzT7r9AcTzSO25 nB73YBwpIORuKeL0GpGbctja bWFy O7jcIdXpcGShAke+PHRhYmxl IHdpZHRoPScxMDAlJyBzdHls LQ7mAj1gPKTcHEHneQhgcNYl OiBj l0ndDJAqNOhwDU8zoMpeF3Gz cPA4BHLka6k0Hi78lQV+PHRk QVQ7kGajIOfqk802DvDag8xj IDM3 hKJjQTgzYCQ6J08jr5G4TNXd ORLtJMF5bZT8tS0ykDwxqnvt H3NcnOReWeG5MRW6nNDqxW7q bGln eceoxV8lWdo+L30ANC6AKQKQ LB7MBlr9D7BiXlyyfBN+PC90 XWXoLE11fXOdsZFqv5fwuMw4 JzEw SNXrBTU9hTgePPhpq1CsBQZv V38hkBFlh6W3CYFmxApbmVKt WqMkmBY0zE8gRBpdzkcvs1dh dzsn Ofuzy7qgwz67nI85V08dPPig QOXaQES2KPAgSETwaRavxy3g yK9zIy4+PDozo7usk8zowWf9 IjIw NWNbzmSrnFjdKKJ6v4EoBf77 Y6GrmNsux6HdIqh0dy20kZPd z1Q4oHN0XElsHEOsdY6jXHic ZnQ6 LUElFuWzeF91cNBiJXbiUm0b zFpvcBmlGL0vXBWhuleaPWQb jS6cGARrpJRfwVnbDU1gYMTz bjtm p268SgQuLBL4QWVtiDSnS7Og hD7hIfGqTXWxHBPbG1AbhLSc SRqxP093TPbaCgJ1GFSqclQr Y2Fs FHVjrTkyAwG0f7M0Zo0Me0Pq cigiEZG7OWfuWKYyQbInEnYe GuT6I1GgCdm1SNIaaHjpBV1a J3Bh INFdoqvpeqruyZW0LZOiFAKs qQ66pYWtEIefCd3uc4Y7f693 KURdMLNdjR25Hm4czWwbNXIu dCBU sH8omjarn9vnmpguSpBxXSWv CHw4RBh6GXSuhLeuKyJzVZI5 EwJ7LQT6yILbzW3mhKzlfgug dG9w Oyc+N54qhO6hTIR3QVF1gkue BIXssvQqWH28YM62W3CjTaxs dGFibGU+ASPmqqZzqKzfIR0e YmFj b2gwa6EkDBdcV3UlALGnROmk Gow2MHRoAPF3oUS2oA2uWNHc RRoyr7P5iRA7S3DbhrVngo1d b2xs FETbYQcsC75gbLXsp0W8IQUz yKP7VSIjaUoeTpBggM82Ppe+ JRFapIjeq7BqUleax7nmz0jw dGg9 NyBdRMRtdqZzoBaiFNV7k4Fl Gz12S84pXPxsQBIqEPFtKPYv HTXsnAojft4hjA7oGr5+PGNv bCB3 dOA6uG7vEGQvVbL9ECbvY626 KyDynCMyDyitw8fih2vmgKf1 GrBdYRCkrhRssDzwBLC1e6Lp Lz48 Z64oBJgjKNXhGIVxNXYtUMAi vKjupm5muN5fDb6+KL3xf7mk mo51sB97gEY+MZJrMIO2eGmf PSdw EPUgdB3aWLteKlD7FGZeNfKq sY08hTCkVTkfFy9xjSejmEyu GN9kDFFfgsxdz221RdAtn2cg IDEw tWElJFcvDCE0D23er2O8VZTa CNIyZIZ5rEZ0eS1lxQqunucc bGVmdDsgdmVydGljYWwtYWxp Z246 IHRvcDsnPlBhdGllbnQgTmFt RLb1F5AlQzt4PXQqaRrkUH9q uAQyHIyuCk5wkOozsFpdST5n NTBp bzfaq646PgYif9psSDQpdLVe RGmxFOG8T49ul4T8EACmNFKh QIL2kUP3kH6soIcrtrkrqAZc dDsg kxWemJavZHveZWpdY795EDKd gAhcDwTlieTxUYRxzIN7CB86 SE17hWZye4K8rWB5T2UjSFIo bmct vvjmwUX8ITNmAOGpvX86Dj1h eDmuBh0yTARwYHI9WGGqyWIp S9RcuN5fEhWjHREeCYXhC7Vy eHQt KGvyS634KJauJtP5ABOeohGo P4QtYVTklTkcFqE0j6Z3Pc4P Y9I6RN08DO83pUAhe5J3kCL5 J3Bh UMEaiutcsswgoVP1CIPpACDv vQ70Yy5irZehOw9dNDNlSGQ0 NOSsvFLlP3KfiE9cWpFhPWBt MDAw L9XjdAJxIOizY074BUnkWiQ5 PZRgwpWrP7PcZJLtwWrfUaY9 c5Z9Xp4YQVv8NN41WJ92eTBo c3R5 yLK7Q1WvOHSorzocpmbzuMO6 FMOzHVNgyM96Vi4xgXoqKf3w FXIrFOX8FDVdhVKbQ5XpkA1o OiAj FCIdDSDkV6HypTXyXPizK969 EArjDlD0EJBuhuVqU5DiRJHl gAonQvZ7h1H8Wz7QLHCoRC23 IFR5 iHM7XO71HH04K6UxIzdpuZRw bGU+PHRhYmxlIHdpZHRoPScx GJCsZbZlkQbvMM2hEp7iOSJv LWNv dWtzbANcCjAgc1riAWGgVExf UQ8gzRxbL8CfxDL2RXSgn7n4 Da40H16xH8HryXP+PGNvbCB3 aWR0 hA4vVnIzPxD5FBsnU447UkQo fJXpFmxdt8vca1iljTn5RoZ5 KZBvjpPagJzuYLC0j0XjFx58 Y29s IHdpZHRoPSIxNSUiIHZhbGln ou3lvM2kTd2+ROHrhJN4fKB6 eD4iWsEgRoC8QYmqZ884IwOy cCIv Pxuqd0jhi2zwxRz0HaNjJQEr etHkmXggNEE9k2XxKy05S9Os vSgok3TqXze4ux08kYHkr6J8 bGU9 L1YgEYPazjzcuYQszHfdZK7n RCCxoeknTEQbpC7aXZSrU6n5 AgWcRfP6IYnmU6BvbaL3HJZt cHQg DGlqOJU8U86zi8Z9NSGsSLIw AHU7fWS4vH1agSgmuacbuRSx nYlxquNarAqtJZrrMPtmU051 IHRv oJsySZOplZ1cQRCsaOEvhXzz XT7dYRAttesqGaAAXSeXPDVU GZRRBDI3E8ZjTmr1NHCjdRsq ZT0n hYYkILifMw6qvMzsaOseFN4m FRYxylhgQNNvhU1fUADrmDWn gAghAA1qKFTrgshuj445FeTv MHB0 GGNiyBHeM2QssT2nRlOdOKCh XJYmX4UfhWZjTBiuK770TScu PnN7FBWawaRfE5PwIXJjeBfs OiB0 e8A2Rh9uSx5rAy4wXKonWD77 YX19aUHuz3L1rRH5B1YuVKVo kjqwenyapVK9IMYdUYGuaX65 cGFk MZzgSm3ln4G5n977NQGiPQSf aB11Gh8biQwiYZHcqYPXiG3q ypkso4wunoyyZkXyQJIxPSs6 ZXh0 WQRsdLpnAqIzLXP1KuG3VBH9 vPBxcY9lgWeeixplpP3cErf+ VJuhTEMzgcA8H2JgEpp6YGGp dHls OM4krILmITsdVx5brSadoFqu IL5zITTzzxewPQDvuN3eJDBh rXPumPnwEW3iMMLsqajvj144 OiAx VUF3BCEhhSVdW5GldL2fNyMh ONEzEWLbJ1UfgKEqQGeiX151 TZyzZgR2TIUbtvHjY9RdGXNv aWdu ExR5h7R7Wf7ZKY3ACWL9J2Cb Iir7LEAunFvxME3lgHYbQLns Pd4ywFqqtLxaDB6yZMFrvubw YWRk pY6mHNRmiSDohVgsRU0aDDJh vltbb271GgPzEKC0BLUjsYCe D1RsdX9aTsAvFLEzBNRmS3Hh eHQt GYuyS623PJkvKeZ6VCZvqrRq C8EbISNstYngVpF8x5Y7Ay5S UDwvdGQ+ZD26sk19C7YoPvuw Pjx0 EIMrPZF2dPJ9oQ2qPNLkVVqr p6O5hTV9Q4BdwmYziu3gv8dl HXUnVZndT45cyEDzi7I9HIFc cHR5 ECYnoWysNgJhoY42Dzp+PGNv oMlua9XnPmccn5gvg9dxpEw9 LpAyAZJbqqZvsUakBMJ2m9Oj Lz48 P91lMMfqRMAyQHGzVTJrTQQi mUwduu2npN5jOg7+PGNvbCB3 fWV3nT6qZzUqXbY1DGzwK389 InRv eGFuUykge8win5lzxPa0RpEa WQWprsTltCicOGK5c4DiDv68 G8SwyVhpx8TsFqs7hj98vMKe c3R5 vVU8E3UhEIRxcqlykVAhyHqn HG9yCHZmzjiqSNUaqT9sWYIh Y2p7FgQrFlZ0OLhiX6WvdcF1 IGJv qMLuPKMoaOOEeN1sjwwzk3ak elmrRsEvTQNdAWh0KQq9MEZz zSqsGuFjREP0OtC5XJM7rGNc bC1h rAkhoquoaN1hOox+SLm2b7dp rGYqIK2ahKC5MB80HP89vRSj m4L0hJE2R5JdPGQkzhuhmfwu aHQ6 IVTrDOUbuL26Ol8rnGctCx9m IQGzFEC6FVTwdRGaM9BqxX6v LgNvTZLqRAPoQ1GucVElAXxb Z246 QOtaZgY6TELweyZgC1PbWAPx xMsxGyW5z3Z3Eb6OWG76ZV76 FH40hBAyv8E5vQX6J1IhAMSc bmct ifptxJE7XBWqWEOqtR19Ia1o aDbnQp8oBJBaWWT9CTNzyHUo I3UmaN9tFhJyDAUcDSOfV8Zs eHQt WQxiC185ZDarWrZ8KDHexvSh I3KuFKAqoJftNwH8t6X6Mg5Y Rd11EJ98YU93zSUwi3B4pQB9 J3Bh TRCgwtqrkwdzpPB2OGTvXGDb kR84Uf7qyMzfXd8xRDDmYVB2 XDBuqTAvM1AnfL5lJbAyETPd MDAw V6SnaYDeKMkzX405LSzfMgK2 KNWulkVdW8HfHRMvyRuoNrY4 q6H3Fj3CKTyfgdq5O7JjZmcx dHI+ WV82PLYjIJ66yNXkzXJxm0bj uTd0DuPcIECmQTA8bEqgSKxv p2YsCPOoZ79mxJVqc0X4KZGb bGxh cHN (more content not included)... [facility] Coding Summary HTMLBase 64 BbdjiywbUOx8sBe+PGhlYWQ+ FE8ZDROaH55whHSfuN6XE0sI CF6PBALEMOOULY7RJU5frFI6 AKfcG4XstnRk HuduuFRmFA32FOz3ALY2cSld UUnmqV0xpXXrH5d6MxTmNG54 sY17DYjzCKTvHwJ7YfEjjjgy bWFy O8pgBeNyeKVbHec+PHRhYmxl IHdpZHRoPScxMDAlJyBzdHls YV8qLc2dNDUtXZQmrGizwCUf OiBj s3ucDBYpGYjgVW4fgHmmE2Gc gLW2WYSfg7m4Xp20fEG+PHRk EFJ5qHykZLvfe922DxUeo2zb IDM3 tGGpKLicIIL2M74ak1D8YOXq JVVjXQO4cVD7sY8npKjuloya I1VjaVMlDdR1BEQ5pZDisC0y bGln jlecqB6wXtv+Y32FMH3FVXEX IO0LJst4C0CrEwkrmOW+PC90 ROIlJF43qCIjkCFni3fajUq3 JzEw PGXcQHV5gKxePNszh9YvQCZd O60eaAAdl3N1LMFivYumxGHi WoYckOX0jZ1pHYkhvwrex3gs dzsn Tpzxd1cndg04qW90Z57oXGle FUAhWIY4SKDtCJGocYvwwy0i gK7tTx8+QXmvs3oir7egxSy2 IjIw CSZqijUufLsmEAV3f0IaKj39 H6DeeEcjp1LfOgt1ai07eEMa v7L1sDG5MJjnDCHboP1wCPnk ZnQ6 WOBaOdUhvB35cIAfXNfpZw1f bMkoyBrnBD0jMARetbndYYUq zU0kXKJynNKtrRtaST4mMGAr bjtm g829HdKyKMB8BWXlmTBrR9Ai rH8dZtMaBNMzBHHiT4IstSKo RPvgI312VYovEbE6GMFexpKe Y2Fs PQVonIkxXwS0w5B9Cb6Sg1Am pqxlNWT5GDezJGTxPbOoRkBu YxY9I0CwJyc8QQVieXkoUW6g J3Bh ZOYbosequbycbMY2HCPcZYJb sR69sVXwRQtgHs9ve0V8o648 GDJoYZXjyK82Hw9cbCbxNDKe dCBU iM8mkckcm7jpmnmnXhHtYDGv SWl2DRc3FQPrvDwyKjPoFTA7 NpN6CXL1oRArwV3rbVhwauev dG9w Oyc+T90umU0lADM5EVQ2ljcx WRCcahOoDD74PI98Z9RkZbbq dGFibGU+UDYvhzLdxKgxEJ0m YmFj p9iwy9MpUBkkD0QxYCVeTBkr Qwi9VQQtUYG0kRT5iS0oXJFu DXnxr0W2dQS7S3HoznIrvg9d b2xs QILqLTffK91spTIfv3D4JSTz bEI5ZCOaqBloIoCeoI90Nyk+ YWZjtBocm4GsGocxr6vyy8ym dGg9 FqWhFGWcuaUgfClyWDS8c3Qi Kx74K31sYCjoAFTxOUNdZDKb CJWanTrqyf6teK6dLz0+PGNv bCB3 jOT6vF9qZRPjRgC8YZeoA018 AuRwjTYkLospa2kxd6hisRf4 MqWkILPktnMxiBwxYQV5n9Ep Lz48 L88iQTnkFKJsPMWmSNDjAQBq uTblwn0naA9pJt5+KG3vg1qq us62pN18sVY+RPKfEAA9nTya PSdw FGVcyG4xWXcnKxS6FGKiRqBu qF99nAEbAKluZy9shOydbKre CV4lHFFresxzq331VlAsj5at IDEw zYYpVEosFUS2O86oc2M9KKQw BQNcNUG0wJW2pZ2drEerbrko bGVmdDsgdmVydGljYWwtYWxp Z246 IHRvcDsnPlBhdGllbnQgTmFt MAa9X6IqAaf2XYNmmYrdJM5t nHTaMRbvNs4oeAhojWahCC3e NTBp dfxkr229DwHbh7nzLBFwsYYf EWmlZVI6P80cd1R8EHLwVGKb HNB5eQP3cU4hpTrwfjaowGQd dDsg qtOedYivNOhyBWxjI265XTRi oRhfEaWreaEoCDQthTL1YL59 GX23nLQir3I3sYM5H4DhCDJp bmct taooeLG7TTRzRJZukL85Vo9e aZszQa9pTLAtPMT5CQCvlJGl I5ArqC6fTfSyYNIxLLGeL2Un eHQt BVmdP298WRquCsZ9NXUcclUd V1FuVUDkdGsiHtK1u9Q2Ui9W U3W5VE39OU74dYLxe3X7sML0 J3Bh EMWybvwxkdiepCR0CRPsZJLm lC33Cj9ubSgfDu1dWVOdLOC3 FUQhkDDqX4GxeK9aEeEnDXHy MDAw U7VkpQBaJUftI775ZKrxApW9 HZYmpcMdP3EtCEVjlLvxQvH2 d1N0Ou9QABf2DX02GF97jWLu c3R5 hCN2U0SoPTQalxecoxaekWZ4 OYYaUXCyfJ74Rl5xsAwcPr1i JNYjFCP8UCDqbFJfD7OnrX3h OiAj AXSsGPZdI4HbjMJaEVlhS912 XUwyMcB2BIYkgoIzZ6MwEYXm tHedNoT5w2G2Ne6XCEBqNO97 IFR5 vOZ8GV52ID24B2KlKxplrPTk bGU+PHRhYmxlIHdpZHRoPScx CEOiAyAdxThpUH7yMz0bZRZg LWNv xIwfhZVnHpPja8ymQFNxJBof SN6ltLpmW4WghSI0QTUdz8y7 An61S27eJ9PqyOY+PGNvbCB3 aWR0 cX7xEeRwYcX4KXipV678CaEq bQUzSonlr5cry4vziVe6RfU6 NMShelYsqSvnSQA6e6TgSd21 Y29s IHdpZHRoPSIxNSUiIHZhbGln uw8ygQ5lZh6+MXYyrMH3kNA0 bE6yTzPpWdZ6WPruH324BqCj cCIv Wkety5mzz7hjcMh5PyGzTDCd ulHkwSdwFUY0d1FaGz00T0Uq jFzmi7LlPpr0vs48cHXib4V1 bGU9 U1LyVUTenafemZRchZdgNO9l JUYztorjGHSjsH5zWRBoD6a9 FeXrZwG2UWplV0JbmcV3FJJv cHQg LOnxRDF6V13gh4N0ANTsOQUo XSW0oZT6vW7ekGtfhczibFFi sTrqluMpjTylWFajRSuwE371 IHRv dVqxMSQrgH2yDHVsaWWhdQne CR1jREBstjwfIyKXYCtSFTZP TZPPION3D2ZiOfk4BYGpyMcy ZT0n yGFcNHhnQw9wqCoqfNzdLL1l DTCmiemiWPVuzM8xDAMneEYu iHawFO0aNQTqaliiy709MkZn MHB0 FFYeiGWzT6IcdS1bUeKuOMXy RYNuZ8EdnWBlMBlxY166GXpu NvJ7NKNywcEtT4FzNDSjhQzd OiB0 e3S7Jq3oDn1lQo4mRTokMG56 TQ56uTEqk1I4oYS7Z2BhWXAw iesfqvnucTN4LKByWNGgrZ66 cGFk IQnzFo7rl4K8s746YPPdJQMe nD52Vq9xqVajPRGlaGASlH5h hiqzd6iyrlstNlOlNHNbWFa8 ZXh0 AFRvhOriKjAeNJZ6LfO6JZG3 nFPlfD9jxBxzbytbcA0aWla+ KAtnJWMsonN0M1EmWzl2PHRc dHls OD5fwOAsWGpmRo9juLavlQxc FP5vIXIoinkuUZZmsV3yAGQz cJGgiYipHA5uLNGlfzdtr865 OiAx AAE0IZRzsJKnT9FikV3tXvBi ZOFfCONeU0JhaCTlXPriB209 HGgzGnK4HNFipwPoD4FvAQIv aWdu HvZ1e0Y2On2JMV3UIWP3L0Oh Ezn7EVLdeMkwOY3kwHSiSHvs Jq0vlGbgnVpaDW4pRIXeheta YWRk aP3fNDDgwJZlwCwkRF3mEQMe acyzs523ReOuYQY8NVIjpDAr P3VjaX9tAzMuDRLvRYQrF0Fr eHQt UAveD054YKzmVmD5OOHaeoSv C3KpYAGbtBptVoV9b7O2Sg6G bIClV4MqS4q6C0BsVxnkcQH+ PC90 OEHlKK20fFQtaXIkb9isaDa1 GpCnUGOlHFV1nIukTXqym1Fj JFYtO08upRWlm8W4EQEjuSao cHNl NdWekCN8rA3jKPxawosda9ax nukdTjrpy9ffle40uL26L93l IHdpZHRoPSIzMCUiIHZhbGln bj0i rU3bDc3+BVYnnHD7hUL3dY7d MlDjDqU3NXpdJ856BrBdfOJp Vjtqg5skl1sgbXe0SzYkGOAz dmFs eOzxRCQ6m2KuTm40S22eBXru EMHyEEAfBHAnWYIhwQqlca9l zZ7lTk6+XB3wv2uhte22yM76 dHI+ ETYdAXW1yOpgTQreGHJgoE2o PBvbZaF1CFJqPvLubC02qJBy FRzaQj5yrKhhkZojRB4iBOLd bjtm a177NaXae1eqDFLgrJFuHRjn LSS6A84vy0Z3ZAPsQNOwLYX1 mYL1qA2shWzcjuyqsIGjhXse dmVy nVwfIOhjEBbmP081UHOlsXcr EhNxqUQyB2jrwqOPGS4mIqad dGQ+XACaUHI0yXrjDDgcCIZo aW5n GFHvK2w6FvGfQnC6ULyjR0Zu nlN0OPKhhAMdOJJjoUXSiS7z plvhw3aoovlxQzHpTJQlZBh1 ZXh0 HKRfwJefKsAjIRR6YiU4LBH2 sTMfyM3iqXmtespswD6nRmb+ RklOOjwvdGQ+MFLmZWT1kJfv PSdw MRDjoO6kZTPuW3u8UiHhAmZ9 IXjeN1FvooF6CAEzmGOmVPWs cNTEsS7umiqpr4pidaodUsKd MDAw ODn7QXu8DCUgtDduVaUdNGZ5 FnH1PSF0nRKanG8dzSrnixyr jA0uFmo+TVJOOjwvdGQ+PHRk IHN0 wFyfLVbnGDJstU3lKOApC8u9 KwRlKsX1TZvmW6QiazM6APLh eBOdLIEeoMNUpS8irjuju3ia cjog XlDcRXHyPYn1YCm4DITmdZwt IpRlZQI8YcZ8XSY1aERcjG6v aZghexxciB2nIqr+YDP3KNZ2 PC90 KS04M9KjVtqjfDMscOZ+PHRh YmxlIHdpZHRoPScxMDAlJyBz pXxwPC3vQt1rVNQfFFNwlQui cHNl OiB (more content not included)... [facility] (SPNSKAMRYN) -------- MACIE CLOUD ([id number]) 1975 F Date Time Provider Department 10/07/22 TOO HUGHES During your visit today, we recorded the following information about you: Karen Watkins RN 10/07/2022 9:11 AM Signed Neuro SPINE CARE COORDINATION SURGERY SCHEDULING Pt scheduled for 12/30/2022. This date is now an OR at [facility], not [facility]. Due to this, pt will [...] Hughes. Pre op appts: [facility]: 02/08/2023 at [facility] IC: 02/08/[address] Hughes at 240pm [address] [place] ([facility] Date): anytime Pre op Education: 02/08/2023 [...] Status:Closed by KAREN WATKINS on 10/07/[address] [facility] CT Spine Lumbar w/o Contrast on 10-07-2022 [...] DO 10/07/22 9:19 pm Technologist: Pauly ZEE [facility] ED Clinical Summaryon 2022 ED Clinical Summary [facility] - Emergency Department [address] [place] [address] ED Clinical Summary PERSON INFORMATION Name: MACIE CLOUD Age: 47 Years Sex: FEMALE : 1975 MRN: Acct#: Visit Reason: Back pain; BACK PAIN Arrival: 10/07/2022 19:31:00 Discharge: 10/07/2022 21:28:00 LOS: 000 01:57 Check In: 10/07/2022 19:31:00 Checkout:10/07/2022 21:28:00 Address: [address] [place] [id number] PCP: CRISTIANO GRAHAM PROVIDER INFORMATION Provider Role [...] Pain Follow-Up: With: Address: When: CRISTIANO GRAHAM [address] [place] [id number] Within 3 to 5 days DIAGNOSIS: 1:Chronic back pain greater than 3 months duration; Other chronic pain Patient Understands: Yes - Patient/family/caregiver verbalizes understanding of instructions given Comment: [facility] ED Note - Otheron 10-07-2022 ED Note - Other [id number] TIFF [facility] ED Note-Nursingon 10-07-2022 ED Note-Nursing Pt walked out of eleni m and stated that she wanted to leave. Pt educated that she would have to leave AMA. Pt states ok. KT, PA filled out form and patient signed and exited the ER, walking independently with family out to private vehicle. [facility] ED Note-Nursing Pt requesting to sharonda ve [...] to come back prior to dc. Normal [facility] ED Patient Summaryon 023 ED Patient Summary [facility] - Emergency Department [address] [id number] PATIENT DISCHARGE INSTRUCTIONS Patient Information Name: MACIE CLOUD Age: 47 Years Date of : 1975 Reason For Visit: Back pain; BACK PAIN Arrival Time: 10/07/2022 19:31:00 Primary Care Physician: CRISTIANO GRAHAM Attending Physician: Herbert Pacheco MD Comment: Visit Diagnosis: Diagnoses This Visit Back pain ([id number]) Chronic back pain greater than 3 months duration (M54.9) Other chronic pain (G89.29) The Pharmacy at [facility] is open Tuesday through Tuesday from [...] alcohol and/or drug addiction problems; contact the [facility] 07/03 Crisis Hotline -Text 4HQPD up [phone]. If you received any narcotics, sedation, or [...] any legal documents With: Address: [facility] [place] [place] [id number] Within 3 to 5 days Medication Information: The exam and treatment you received today in the [facility] Emergency Department were for an urgent problem and are not intended as complete care. It is important for you to follow up with a doctor, nurse practitioner, or physician?s assistant teacher for ongoing care. If your symptoms become [...] so we can reach you if necessary. [facility] Emergency Department has provided you with a complete list of medications post discharge. Please inform your manager business banking/provider of your visit and for further instruction [...] provider may recommend (more content not included)... [facility] 09-17-2022 [facility] Telephone (SPNSMN) -------- MACIE CLOUD ([id number]) 1975 F Date Time Provider Department 09/17/22 TOO HUGHES [facility] During your visit today, we recorded the following information about you: Karen Watkins RN 09/17/2022 12:51 PM Signed Neuro SPINE CARE COORDINATION SURGERY SCHEDULING Per Dr Hughes [place] to schedule pt for surgery. Patient accepts surgery date of 12/30/[address] Too Hughes at [facility]. Planned procedure: Revision L3-S1 and ext to L2 lumbar fusion. Length of Surgery:5 hrws Expected Length of Hospital Stay:3-4 Patient's Home Address: [address] [place], [place] [id number] Medications reviewed : Yes. Meds to be [...] , and nicotine. Education Sent Via Mail/ MiniTimet: [facility] Questionnaire Completed: Yes Qualify TREK for Surgical Success?: Yes Patient placed on cancellation list: No Pre op appts: Bhupinder Goat: anytime PACC: [facility] 12/07/22 IC: 12/07/22 at 1140 am [...] stop smoking before surgery. Call back # [phone] Karen Watkins RN 09/21/2022 12:52 PM Signed Neuro SPINE CARE COORDINATION QUICK NOTE Pt should be nicotine free for at least 1-2 months prior to surgery to allow amble time for pre surgery nicotine lab test. Recommend pt have all optimization labs including nicotine by the week of Laura 10. All questions answered, verbalized understanding and instructed to call our office if any questions or problems arise. Karen Watkins RN Instrument Sterilizer Karen Watkins RN 09/21/2022 12:58 PM Signed [...] fusion [M96.0] Order(s):NICOTINE/COTINI NE [SQNICOT] Order #: [id number] FUTURE BLOOD MANAGEMENT REFERRAL [[id number]] Order #: [id number]: 1 CBC + DIFF [SQCBCDIF] Order #: [id number] FUTURE FERRITIN BLD [SQFERR] Order #: [id number] FUTURE IRON + TIBC [SQIRON] Order #: [id number] FUTURE HGB A1C [[id number]] Order #: [id number] FUTURE TREK FOR SURGICAL SUCCESS [[id number]] Order #: [id number]: 1 Prescriptions as of 09/21/2022 - Mesalamine [...] lisinopril-hydroCHLOROth iazi (more content not included)... Normal [facility] Albumin [Mass/volume] in Ser um or PlasmaOrdered By: Michel Venegas on 09-16-2022 Albumin [Mass/Vol] 3.8 g/dL 3.2-5.5 [facility] Alkaline phosphatase [Enzyma tic activity/volume] in Serum or PlasmaOrdered By: Michel Venegas on 09-16-2022 ALP [Catalytic activity/Vol] 88 U/L 32-92 [facility] Amphetamine Screen Ql (U)Ord ered By: Michel Venegas on 09-16-2022 Amphetamines Ql (U) Negative Negative [facility] Aspartate aminotransferase [ Enzymatic activity/volume] in Serum or PlasmaOrdered By: Michel Venegas on 09-16-2022 AST [Catalytic activity/Vol] 21 U/L 10-42 [facility] Barbiturates [Presence] in U rineOrdered By: Michel Venegas on 09-16-2022 Barbiturates Ql (U) Negative Negative [facility] Basophils Auto (Bld) [#/Vol] Ordered By: Michel Venegas on 09-16-2022 Basophils (Bld) [#/Vol] 0.1 10*3/uL 0.0-0.2 [facility] Basophils/100 WBC Auto (Bld) Ordered By: Michel Venegas on 09-16-2022 Basophils/100 WBC (Bld) 0.9 % . [facility] Benzodiazepines [Presence] i n UrineOrdered By: Michel Venegas on 09-16-2022 Benzodiazepines Ql (U) Positive Negative [facility] Bilirubin.total [Mass/volume ] in Serum or PlasmaOrdered By: Michel Venegas on 09-16-2022 Bilirubin [Mass/Vol] 0.6 mg/dL 0.3-1.2 [facility] C reactive protein [Mass/vol ume] in Serum or PlasmaOrdered By: Michel Venegas on 09-16-2022 CRP [Mass/Vol] 1.5 mg/dL 0.0-1.0 [facility] Calcium [Mass/volume] in Ser um or PlasmaOrdered By: Michel Venegas on 09-16-2022 Calcium [Mass/Vol] 8.6 mg/dL 8.2-10.2 [facility] Cannabinoids [Presence] in U rine by Screen methodOrdered By: Michel Venegas on 09-16-2022 Cannabinoids Screen Ql (U) Positive Negative [facility] Comment on above: These are unconfirme d results and should not be used for legal purposes. Drug Cut-Off Concentration: AMPH 1000 ng/mL FOREIGN 200 ng/mL ADELE 200 ng/mL COCM 300 ng/mL OP 300 ng/mL PCP 25 ng/mL THC 20 ng/mL Carbon dioxide, total [Moles /volume] in Serum or PlasmaOrdered By: Michel Venegas on 09-16-2022 CO2 [Moles/Vol] 26.1 mmol/L 22.0-30.0 [facility] Chloride [Moles/volume] in S jayshree or PlasmaOrdered By: Michel Venegas on 09-16-2022 Chloride [Moles/Vol] 102 mmol/L 95-114 [facility] Creatinine and Glomerular fi ltration rate.predicted panel (S/P/Bld)Ordered By: Michel Venegas on 09-16-2022 Creatinine [Mass/Vol] 0.53 mg/dL 0.44-1.03 [facility] Eosinophils Auto (Bld) [#/Vo l]Ordered By: Michel Venegas on 09-16-2022 Eosinophils (Bld) [#/Vol] 0.1 10*3/uL 0.0-0.45 [facility] Eosinophils/100 WBC Auto (Bl d)Ordered By: Michel Venegas on 09-16-2022 Eosinophils/100 WBC (Bld) 0.8 % . [facility] Erythrocyte distribution wid th Auto (RBC) [Ratio]Ordered By: Michel Venegas on 09-16-2022 Erythrocyte distribution width (RBC) [Ratio] 15.4 % 11.9-15.3 [facility] Erythrocyte sedimentation ra te by Photometric methodOrdered By: Michel Venegas on 09-16-2022 ESR Photometric method (Bld) [Velocity] 13 mm/hr 0-19 [facility] Estimated glomerular filtrat ion rate (GFR) non- AmericanOrdered By: Michel Venegas on 09-16-2022 GFR/1.73 sq M.predicted among non-blacks MDRD (S/P/Bld) [Vol rate/Area] > 60 mL/Min [facility] Gliadin peptide+tissue trans glutaminase IgA+IgG Ab [Presence] in Serum by ImmunoassayOrdered By: Michel Venegas on 09-16-2022 Gliadin peptide+tissue transglutaminase IgA+IgG IA Ql (S) Negative Negative [facility] Globulin Calc (S) [Mass/Vol] Ordered By: Michel Venegas on 09-16-2022 Globulin (S) [Mass/Vol] 2.5 g/dL [facility] Glucose [Mass/volume] in Ser um or PlasmaOrdered By: Michel Venegas on 09-16-2022 Glucose [Mass/Vol] 100 mg/dL 70-100 [facility] Comment on above: ADA recommended refe rence rangeRandom Glucose Reference Range is dependent on time and content of last meal. Glucose of more than 200 mg/dL in a nonstressed, ambulatory subject supports the diagnosis of Diabetes Mellitus. Hematocrit Auto (Bld) [Volum e fraction]Ordered By: Michel Venegas on 09-16-2022 Hematocrit (Bld) [Volume fraction] 40.4 % 34.0-46.4 [facility] Hemoglobin [Mass/volume] in BloodOrdered By: Michel Venegas on 09-16-2022 Hemoglobin (Bld) [Mass/Vol] 13.4 g/dL 11.8-15.4 [facility] Laboratory - Drug toxicology Ordered By: Michel Venegas on 09-16-2022 Opiates Ql (U) Negative Negative [facility] Leukocytes [#/volume] correc rajani for nucleated erythrocytes in Blood by Automated counOrdered By: Michel Venegas on 09-16-2022 WBC corrected for nucl RBC Auto (Bld) [#/Vol] 7.4 10*3/uL 3.8-11.6 [facility] Lymphocytes Auto (Bld) [#/Vo l]Ordered By: Michel Venegas on 09-16-2022 Lymphocytes (Bld) [#/Vol] 1.6 10*3/uL 1.00-4.8 [facility] Lymphocytes/100 WBC Auto (Bl d)Ordered By: Michel Venegas on 09-16-2022 Lymphocytes/100 WBC (Bld) 21.7 % . [facility] MCH Auto (RBC) [Entitic mass ]Ordered By: Michel Venegas on 09-16-2022 MCH (RBC) [Entitic mass] 30.0 pg 24.7-34.3 [facility] MCHC Auto (RBC) [Mass/Vol]Or dered By: Michel Venegas on 09-16-2022 MCHC (RBC) [Mass/Vol] 33.0 g/dL 32.0-35.0 [facility] MCV Auto (RBC) [Entitic vol] Ordered By: Michel Venegas on 09-16-2022 MCV (RBC) [Entitic vol] 90.8 fL 80-100 [facility] Monocytes Auto (Bld) [#/Vol] Ordered By: Michel Venegas on 09-16-2022 Monocytes (Bld) [#/Vol] 0.3 10*3/uL 0.0-0.8 [facility] Monocytes/100 WBC Auto (Bld) Ordered By: Michel Venegas on 09-16-2022 Monocytes/100 WBC (Bld) 3.6 % . [facility] Neutrophil cytoplasmic Ab.pe rinuclear.atypical [Presence] in Serum by ImmunofluoresceOrdered By: Michel Venegas on 09-16-2022 Neutrophil cytoplasmic Ab.perinuclear.atypical IF Ql (S) Negative Negative [facility] Neutrophils Auto (Bld) [#/Vo l]Ordered By: Michel Venegas on 09-16-2022 Neutrophils (Bld) [#/Vol] 5.4 10*3/uL 1.8-7.7 [facility] Neutrophils/100 WBC Auto (Bl d)Ordered By: Michel Venegas on 09-16-2022 Neutrophils/100 WBC (Bld) 73.0 % . [facility] No Panel InformationOrdered By: Michel Venegas on 09-16-2022 Estimated GFR () > 60 mL/Min [facility] Comment on above: GFR estimated refere nce range: According to KDOQI guidelines, <60 ml/min/1.73m2 is sufficient to diagnose a patient with chronic kidney disease. Inflammatory Bowel Disease Interp See comment . [facility] Comment on above: Suggestive of Crohn' s disease. Subsequent testing with theCrmin's Disease Prognostic Profile (904575) that includesantiglycan antibodies AMCA, ALCA, ACCA, and Marck may aidin the differentiation of clinical forms of CD andprognosis of disease progression.Performed at: [facility] [id number] Director: Saul Villanueva MD, Phone: [phone] Pharmacy Creatinine Clearance (Chem 110.33 [facility] Nucleated erythrocytes [Pres ence] in Blood by Automated countOrdered By: Michel Venegas on 09-16-2022 Nucleated RBC Auto Ql (Bld) 0.2 /100{WBC} 0-0.5 [facility] Phencyclidine Screen Ql (U)O rdered By: Michel Venegas on 09-16-2022 Phencyclidine Ql (U) Negative Negative [facility] Platelet mean volume Auto (B ld) [Entitic vol]Ordered By: Michel Venegas on 09-16-2022 Platelet mean volume (Bld) [Entitic vol] 7.1 fL 6.3-10.7 [facility] Platelets Auto (Bld) [#/Vol] Ordered By: Michel Venegas on 09-16-2022 Platelets (Bld) [#/Vol] 442 10*3/uL 150-450 [facility] Potassium [Moles/volume] in Serum or PlasmaOrdered By: Michel Venegas on 09-16-2022 Potassium [Moles/Vol] 3.9 mmol/L 3.5-5.1 [facility] Protein [Mass/volume] in Ser um or PlasmaOrdered By: Michel Venegas on 09-16-2022 Protein [Mass/Vol] 6.3 g/dL 6.1-7.9 [facility] RBC Auto (Bld) [#/Vol]Ordere d By: Michel Venegas on 09-16-2022 RBC (Bld) [#/Vol] 4.45 10*6/uL 3.60-5.00 [facility] Saccharomyces cerevisiae IgG serumOrdered By: Michel Venegas on 09-16-2022 Mauricio's yeast IgG Qn (S) 38.4 Units 0.0-24.9 [facility] Comment on above: Negative <20.0 Equiv ocal 20.1 - 24.9 Positive >or= 25.0 Serum or plasma alanine main otransferase measurement without P-5'-P (enzymatic activiOrdered By: Michel Venegas on 09-16-2022 ALT No additional P-5'-P [Catalytic activity/Vol] 16 U/L 10-60 [facility] Serum or plasma albumin/glob ulin mass ratioOrdered By: Michel Venegas on 09-16-2022 Albumin/Globulin [Mass ratio] 1.5 {ratio} [facility] Serum or plasma anion gap de terminationOrdered By: Michel Venegas on 09-16-2022 Anion gap [Moles/Vol] 9.8 mmol/L 6.0-15.0 [facility] Sodium [Moles/volume] in Ser um or PlasmaOrdered By: Michel Venegas on 09-16-2022 Sodium [Moles/Vol] 134 mmol/L 136-146 [facility] Urea nitrogen [Mass/volume] in Serum or PlasmaOrdered By: Michel Venegas on 09-16-2022 Urea nitrogen [Mass/Vol] 4 mg/dL 9-23 [facility] Urine cocaine detectionOrder ed By: Michel Venegas on 09-16-2022 Cocaine Ql (U) Negative Negative [facility] WBC Auto (Bld) [#/Vol]Ordere d By: Michel Venegas on 09-16-2022 WBC (Bld) [#/Vol] 7.4 10*3/uL 3.8-11.6 [facility] CNOVon 09-13-2022 CNOV Office Visit (SPNSMN ) -------- MACIE CLOUD ([id number]) 1975 F Date Time Provider Department 09/13/22 [...] Sr, MD REFERRING PROVIDER: Lei Martinez [address] [facility] [address] Consult requested for an opinion regarding the [...] PROBLEM LIST Copd (Chronic Obstructive Pulmonary Disease) ([facility]) Current Smoker Neck Pain S/P Cervical Spinal Fusion Anxiety and Depression Iron Deficiency Anemia B12 Deficiency PAST MEDICAL HISTORY Diagnosis Date Anemia 10/[address] Cristiano Graham Anxiety and depression COPD (chronic obstructive pulmonary disease) ([facility]) Current smoker Neck pain S/P cervical spinal [...] pain, permanently (more content not included)... Normal [facility] No Panel Informationon 09-13 [facility] XR SCOLIOSIS 2V PA STAND/LAT on [...] C6 as described. Mild dextroscoliosis lumbar spine. Auto Electrician: MARTIN Transcribe Date/Time: Sep 13 2022 3:18P Dictated by : JUAN ANTONIO MONTES MD This examination was interpreted and the report reviewed and electronically signed by: JUAN ANTONIO MONTES MD on Sep 13 2022 3:22PM EST [id number] Normal [facility] CBC AUTO DIFFon 08-04-2022 BASO # 0.0 103/ul Normal 0.0-0.1 [facility] Comment on above: Performed By: #### C BC #### Laboratory [address] [place] [address] Dr. Kimmy Albert Basophils/100 WBC (Bld) 0.4 % Normal 0.2-2.0 [facility] Comment on above: Performed By: #### C BC #### Laboratory [address] [place] [address] Dr. Kimmy Albert EO # 0.1 103/ul Normal 0.0-0.7 [facility] Comment on above: Performed By: #### C BC #### Laboratory [address] [place] [address] Dr. Kimmy Albert Eosinophils/100 WBC (Bld) 1.3 % Normal 0.9-7.0 [facility] Comment on above: Performed By: #### C BC #### Laboratory [address] [place] [address] Dr. Kimmy Albert Erythrocyte distribution width (RBC) [Ratio] 13.6 % Normal 11.0-15.0 [facility] Comment on above: Performed By: #### C BC #### Laboratory [address] [place] [address] Dr. Kimmy Albert Hematocrit (Bld) [Volume fraction] 39.5 % Normal 36.0-48.0 [facility] Comment on above: Performed By: #### C BC #### Laboratory [address] [place] [address] Dr. Kimmy Albert Hemoglobin (Bld) [Mass/Vol] 13.1 g/dL Normal 12.0-16.0 [facility] Comment on above: Performed By: #### C BC #### Laboratory [address] [place] [address] Dr. Kimmy Albert IG # 0.01 10e3/ul Normal 0.00-0.03 [facility] Comment on above: Performed By: #### C BC #### Laboratory [address] [place] [address] Dr. Kimmy Albert IG % 0.1 % Normal 0.0-0.5 [facility] Comment on above: Performed By: #### C BC #### Laboratory [address] [place] [address] Dr. Kimmy Albert LYMPH # 3.1 103/ul Normal 1.2-3.8 [facility] Comment on above: Performed By: #### C BC #### Laboratory [address] [place] [address] Dr. Kimmy Albert Lymphocytes/100 WBC (Bld) 43.7 % Normal 20.5-60.0 [facility] Comment on above: Performed By: #### C BC #### Laboratory [address] [place] [address] Dr. Kimmy Albert MANUAL DIFF REQ NO Normal [facility] Comment on above: Performed By: #### C BC #### Laboratory [address] [place] [address] Dr. Kimmy Albert MCH (RBC) [Entitic mass] 30.5 pg Normal 26.7-34.0 [facility] Comment on above: Performed By: #### C BC #### Laboratory [address] [place] [address] Dr. Kimmy Albert MCHC (RBC) [Mass/Vol] 33.2 g/dL Normal 29.9-35.2 [facility] Comment on above: Performed By: #### C BC #### Laboratory [address] [place] [address] Dr. Kimmy Albert MCV (RBC) [Entitic vol] 92.1 fL Normal 81.0-99.0 [facility] Comment on above: Performed By: #### C BC #### Laboratory [address] [place] [address] Dr. Kimmy Albert MONO # 0.3 103/ul Normal 0.3-0.8 [facility] Comment on above: Performed By: #### C BC #### Laboratory [address] [place] [address] Dr. Kimmy Albert Monocytes/100 WBC (Bld) 4.1 % Normal 1.7-12.0 [facility] Comment on above: Performed By: #### C BC #### Laboratory [address] [place] [address] Dr. Kimmy Albert NEUT # 3.6 103/ul Normal 1.4-6.5 [facility] Comment on above: Performed By: #### C BC #### Laboratory [address] [place] [address] Dr. Kimmy Albert Neutrophils/100 WBC (Bld) 50.4 % Normal 43.0-75.0 [facility] Comment on above: Performed By: #### C BC #### Laboratory [address] [place] [address] Dr. Kimmy Albert Platelet mean volume (Bld) [Entitic vol] 10.0 fL Normal 9.5-13.5 [facility] Comment on above: Performed By: #### C BC #### Laboratory [address] [place] [address] Dr. Kimmy Albert PLT 149 103/ul Critically low 150-450 [facility] Comment on above: Performed By: #### C BC #### Laboratory [address] [place] [address] Dr. Kimmy Albert RBC 4.29 106/ul Normal 4.20-5.40 [facility] Comment on above: Performed By: #### C BC #### Laboratory [address] [place] [address] Dr. Kimmy Albert WBC 7.1 103/ul Normal 4.0-11.0 [facility] Comment on above: Performed By: #### C BC #### Laboratory [address] [place] [address] Dr. Kimmy Mcneill 08-04-2022 GERMAINE Telephone (SPNSMN) -------- MACIE CLOUD ([id number]) 1975 F Date Time Provider Department 08/04/22 [...] Date Reviewed: 01/23/2021 Reviewed by: Renee Fishman APRN.REGISTERED PRIVATE DUTY NURSE - Fully Assessed Reason for Visit: Patient [...] Status:Closed by CARLOS CARRERA on 08/12/22 Normal [facility] CRPon 08-04-2022 CRP [Mass/Vol] mg/L Normal <=1.0 [facility] Comment on above: Performed By: #### B MP, CRP #### Laboratory [address] CHEST WO CONon [...] ALOK COELHO Date: 2022-08-04 06:[address] CSPINE WO CONon 2 CT CSPINE [...] LEE MARTINEZ Date: 2022-08-04 06:40 Normal [facility] CT LSPINE WO CONon 2 [...] ALOK COELHO Date: 2022-08-04 06:[address] PELVIS WO CONon 2 CT PELVIS [...] ERIC HE Date: 2022-08-04 07:19 Normal [facility] CT TSPINE WO CONon [address] CT [facility] WO CON EXAM: CT TSPINE WO C [...] ALOK COELHO Date: 2022-08-04 06:26 Normal [facility] PROF CHEM 8 (BAS METB)on Anion gap [Moles/Vol] 11.7 mmol/L Normal [facility] Comment on above: Performed By: #### B MP, CRP #### Laboratory [address] [address] [address] Kimmy Albert Calcium [Mass/Vol] 8.9 mg/dL Normal 8.5-10.1 [facility] Comment on above: Performed By: #### B MP, CRP #### Laboratory [address] [place], [place] [address] Dr. Kimmy Albert Chloride [Moles/Vol] 99 mmol/L Normal 98-107 [facility] Comment on above: Performed By: #### B MP, CRP #### Laboratory [address] [place] [address] Dr. Kimmy Albert CO2 [Moles/Vol] 28.9 mmol/L Normal 21.0-32.0 [facility] Comment on above: Performed By: #### B MP, CRP #### Laboratory [address] [address] [address] Kimmy Albetr Creatinine [Mass/Vol] 0.94 mg/dL Normal 0.55-1.02 The Comment on above: Performed By: #### B MP, CRP #### Laboratory [address] [place] [address] Dr. Kimmy Albert EGFR-AF MONEGASQUE >60 Normal >=60 [facility] Comment on above: Performed By: #### B MP, CRP #### Laboratory [address] [place] [address] Dr. Kimmy Albert EGFR-NON AF MONEGASQUE >60 Normal >=60 [facility] Comment on above: Performed By: #### B MP, CRP #### Laboratory [address] [place] [address] Dr. Kimmy Albert Glucose [Mass/Vol] 85 mg/dL Normal 74-106 [facility] Comment on above: Performed By: #### B MP, CRP #### Laboratory [address] [place] [address] Dr. Kimmy Albert Potassium [Moles/Vol] 3.6 mmol/L Normal 3.5-5.1 The Comment on above: Performed By: #### B MP, CRP #### Laboratory [address] [place] [address] Dr. Kimmy Albert Sodium [Moles/Vol] 136 mmol/L Normal 136-145 [facility] Comment on above: Performed By: #### B MP, CRP #### Laboratory [address] [place] [address] Dr. Kimmy Albert Urea nitrogen [Mass/Vol] 9.0 mg/dL Normal 7.0-18.0 [facility] Comment on above: Performed By: #### B MP, CRP #### Laboratory [address] [place], [place] [address] Dr. Kimmy Albert Urea nitrogen/Creatinine [Mass ratio] 9.6 mg/mg Normal [facility] Comment on above: Performed By: #### B MP, CRP #### Laboratory [address] [place], [place] [address] Dr. Kimmy Albert SED RATE [facility] 2021 SED RATE 14 mm/hr Normal <=20 [facility] Comment on above: Performed By: #### S EDR #### Laboratory [address] [place], [place] [address] Dr. Kimmy Mcneill 07-30-2022 SHANICEN Telephone (NIQ) -------- MACIE CLOUD ([id number]) 1975 F Date Time Provider Department 07/30/22 LEI MARTINEZ During your visit today, we recorded the following information about you: Nicolasa Wolff Electrical Repairer 07/30/2022 11:12 AM Signed pt had 10:30 VV today with provider. Pt has trouble connecting. Pt requesting a phone call. Call back: [phone] Doris Turner 08/02/2022 9:57 AM Signed Patient is calling in about info below Allergies As of Date: 07/30/2022 (No Known Allergies) Date Reviewed: 01/23/2021 Reviewed by: Renee Fishman APRN.REGISTERED PRIVATE DUTY NURSE - Fully Assessed Reason for Visit: Appointment [...] Encounter Status:Closed by CARLOS CARRERA on 08/12/22 [facility] 07-21-2022 GERMAINE Telephone (NIQ) -------- MACIE CLOUD ([id number]) 1975 F Date Time Provider Department 07/21/22 [...] 07/30/2022 at 10:30 am. Ashly Menjivar RN Instrument Sterilizer, [facility] Allergies As of Date: 07/21/2022 (No Known Allergies) Date Reviewed: 01/23/2021 Reviewed by: Renee Fishman APRN.REGISTERED PRIVATE DUTY NURSE - Fully Assessed Reason for Visit: Results [...] Encounter Status:Closed [facility] MACIE CL[facility] ([id number]) 1975 F Date Time Provider Department 07/21/22 [...] Reviewed: 01/23/2021 Reviewed by: Renee Fishman APRN.[facility] - Fully Assessed Reason for Visit: Received Outside Medical Records [[id number]] Prescriptions as of 07/22/2022 - cyanocobalamin (VITAMIN [...] Encounter Status:Closed by ADOLPH BL[facility]CO [facility] Telephone (GRADY) -------- MACIE CLOUD ([id number]) 1975 F Date Time Provider Department 07/20/22 LEI MARTINEZ During your visit today, we recorded the following information about you: Doris Turner 07/20/2022 2:54 PM Signed Received the following record(s) via fax. -MRI L spine wo(report) Date 06/25/22 Record(s) scanned into pt's chart. Doris Turner Images requested Adolph lBanco RN 07/21/2022 2:23 PM Signed Noted. See other Encounter 07/21/22 with CD. Adolph Blanco RN Allergies As of Date: 07/20/2022 (No Known Allergies) Date Reviewed: 01/23/2021 Reviewed by: Renee Fishman APRN.REGISTERED PRIVATE DUTY NURSE - Fully Assessed Reason for Visit: Results [...] Status:Closed by ADOLPH BLANCO on 07/21/22 Normal [facility] Albumin [Mass/volume] in Ser um or PlasmaOrdered By: Cristiano Graham on 07-13-2022 Albumin [Mass/Vol] 3.8 g/dL 3.2-5.5 [facility] Basophils Auto (Bld) [#/Vol] Ordered By: Cristiano Graham on 07-13-2022 Basophils (Bld) [#/Vol] 0.0 10*3/uL 0.0-0.2 [facility] Basophils/100 WBC Auto (Bld) Ordered By: Cristiano Graham on 07-13-2022 Basophils/100 WBC (Bld) 0.4 % . [facility] Creatinine and Glomerular fi ltration rate.predicted panel (S/P/Bld)Ordered By: Cristiano Graham on 07-13-2022 Creatinine [Mass/Vol] 0.59 mg/dL 0.44-1.03 [facility] Eosinophils Auto (Bld) [#/Vo l]Ordered By: Cristiano Graham on 07-13-2022 Eosinophils (Bld) [#/Vol] 0.0 10*3/uL 0.0-0.45 [facility] Eosinophils/100 WBC Auto (Bl d)Ordered By: Cristiano Graham on 07-13-2022 Eosinophils/100 WBC (Bld) 0.5 % . [facility] Erythrocyte distribution wid th Auto (RBC) [Ratio]Ordered By: Cristiano Graham on 07-13-2022 Erythrocyte distribution width (RBC) [Ratio] 13.7 % 11.9-15.3 [facility] Estimated glomerular filtrat ion rate (GFR) non- AmericanOrdered By: Cristiano Graham on 07-13-2022 GFR/1.73 sq M.predicted among non-blacks MDRD (S/P/Bld) [Vol rate/Area] > 60 mL/Min [facility] Globulin Calc (S) [Mass/Vol] Ordered By: Cristiano Graham on 07-13-2022 Globulin (S) [Mass/Vol] 2.5 g/dL [facility] Hematocrit Auto (Bld) [Volum e fraction]Ordered By: Cristiano Graham on 07-13-2022 Hematocrit (Bld) [Volume fraction] 37.3 % 34.0-46.4 [facility] Hemoglobin [Mass/volume] in BloodOrdered By: Cristiano Graham on 07-13-2022 Hemoglobin (Bld) [Mass/Vol] 12.4 g/dL 11.8-15.4 [facility] Leukocytes [#/volume] correc rajani for nucleated erythrocytes in Blood by Automated counOrdered By: Cristiano Graham on 07-13-2022 WBC corrected for nucl RBC Auto (Bld) [#/Vol] 9.3 10*3/uL 3.8-11.6 [facility] Lymphocytes Auto (Bld) [#/Vo l]Ordered By: Cristiano Graham on 07-13-2022 Lymphocytes (Bld) [#/Vol] 3.3 10*3/uL 1.00-4.8 [facility] Lymphocytes/100 WBC Auto (Bl d)Ordered By: Cristiano Graham on 07-13-2022 Lymphocytes/100 WBC (Bld) 35.7 % . [facility] [facility] MCH Auto (RBC) [Entitic mass ]Ordered By: Cristiano Graham on 07-13-2022 MCH (RBC) [Entitic mass] 30.9 pg 24.7-34.3 [facility] MCHC Auto (RBC) [Mass/Vol]Or dered By: Cristiano Graham on 07-13-2022 MCHC (RBC) [Mass/Vol] 33.2 g/dL 32.0-35.0 [facility] MCV Auto (RBC) [Entitic vol] Ordered By: Cristiano Graham on 07-13-2022 MCV (RBC) [Entitic vol] 92.9 fL 80-100 [facility] Monocytes Auto (Bld) [#/Vol] Ordered By: Cristiano Graham on 07-13-2022 Monocytes (Bld) [#/Vol] 0.6 10*3/uL 0.0-0.8 [facility] Monocytes/100 WBC Auto (Bld) Ordered By: Cristiano Graham on 07-13-2022 Monocytes/100 WBC (Bld) 6.3 % . [facility] Neutrophils Auto (Bld) [#/Vo l]Ordered By: Cristiano Graham on 07-13-2022 Neutrophils (Bld) [#/Vol] 5.3 10*3/uL 1.8-7.7 [facility] Neutrophils/100 WBC Auto (Bl d)Ordered By: Cristiano Graham on 07-13-2022 Neutrophils/100 WBC (Bld) 57.1 % . [facility] No Panel InformationOrdered By: Cristiano Graham on 07-13-2022 Estimated GFR () > 60 mL/Min [facility] Comment on above: GFR estimated refere nce range: According to KDOQI guidelines, <60 ml/min/1.73m2 is sufficient to diagnose a patient with chronic kidney disease. Pharmacy Creatinine Clearance (Chem N/A [facility] Nucleated erythrocytes [Pres ence] in Blood by Automated countOrdered By: Cristiano Graham on 07-13-2022 Nucleated RBC Auto Ql (Bld) 0.0 /100{WBC} 0-0.5 [facility] Platelet mean volume Auto (B ld) [Entitic vol]Ordered By: Cristiano Graham on 07-13-2022 Platelet mean volume (Bld) [Entitic vol] 7.7 fL 6.3-10.7 [facility] Platelets Auto (Bld) [#/Vol] Ordered By: Cristiano Graham on 07-13-2022 Platelets (Bld) [#/Vol] 379 10*3/uL 150-450 [facility] Protein [Mass/volume] in Ser um or PlasmaOrdered By: Cristiano Graham on 07-13-2022 Protein [Mass/Vol] 6.3 g/dL 6.1-7.9 [facility] RBC Auto (Bld) [#/Vol]Ordere d By: Cristiano Graham on 07-13-2022 RBC (Bld) [#/Vol] 4.01 10*6/uL 3.60-5.00 [facility] Serum or plasma alanine main otransferase measurement without P-5'-P (enzymatic activiOrdered By: Cristiano Graham on 07-13-2022 ALT No additional P-5'-P [Catalytic activity/Vol] 19 U/L 10-60 [facility] Serum or plasma albumin/glob ulin mass ratioOrdered By: Cristiano Graham on 07-13-2022 Albumin/Globulin [Mass ratio] 1.5 {ratio} [facility] Serum or plasma alkaline tre sphatase measurement (enzymatic activity/volume)Ordered By: Cristiano Graham on 07-13-2022 ALP [Catalytic activity/Vol] 79 U/L 32-92 [facility] Serum or plasma anion gap de terminationOrdered By: Cristiano Graham on 07-13-2022 Anion gap [Moles/Vol] 14.3 mmol/L 6.0-15.0 [facility] Serum or plasma aspartate am inotransferase measurement (enzymatic activity/volume)Ordered By: Cristiano Graham on 07-13-2022 AST [Catalytic activity/Vol] 22 U/L 10-42 [facility] Serum or plasma calcium jaime urement (mass/volume)Ordered By: Cristiano Graham on 07-13-2022 Calcium [Mass/Vol] 9.0 mg/dL 8.2-10.2 [facility] Serum or plasma chloride miguel surement (moles/volume)Ordered By: Cristiano Graham on 07-13-2022 Chloride [Moles/Vol] 99 mmol/L 95-114 [facility] Serum or plasma glucose jaime urement (mass/volume)Ordered By: Cristiano Graham on 07-13-2022 Glucose [Mass/Vol] 86 mg/dL 70-100 [facility] Comment on above: ADA recommended refe rence rangeRandom Glucose Reference Range is dependent on time and content of last meal. Glucose of more than 200 mg/dL in a nonstressed, ambulatory subject supports the diagnosis of Diabetes Mellitus. Serum or plasma potassium me asurement (moles/volume)Ordered By: Cristiano Graham on 07-13-2022 Potassium [Moles/Vol] 3.3 mmol/L 3.5-5.1 [facility] Serum or plasma sodium measu rement (moles/volume)Ordered By: Cristiano Graham on 07-13-2022 Sodium [Moles/Vol] 134 mmol/L 136-146 [facility] Serum or plasma total biliru bin measurement (mass/volume)Ordered By: Cristiano Graham on 07-13-2022 Bilirubin [Mass/Vol] 0.2 mg/dL 0.3-1.2 [facility] Serum or plasma total carbon dioxide measurement (moles/volume)Ordered By: Cristiano Graham on 07-13-2022 CO2 [Moles/Vol] 24.0 mmol/L 22.0-30.0 [facility] Serum or plasma urea nitroge n measurement (mass/volume)Ordered By: Cristiano Graham on 07-13-2022 Urea nitrogen [Mass/Vol] 7 mg/dL 05-07 [facility] WBC Auto (Bld) [#/Vol]Ordere d By: Cristiano Graham on 07-13-2022 WBC (Bld) [#/Vol] 9.3 10*3/uL 3.8-11.6 [facility] MRI LSPINE WO CONon 06-25-20 MRI [...] ERIC HE Date: 2022-06-25 17:14 Normal The XR Spine Lumbar 4+ Views*on 04-15-2022 XR [...] by Hakan Henriquez on 04/15/2022 1933 Normal [facility] Basophils Auto (Bld) [#/Vol] Ordered By: Jory Ulrich on 03-05-2022 Basophils (Bld) [#/Vol] 0.0 10*3/uL 0.0-0.2 [facility] Basophils/100 WBC Auto (Bld) Ordered By: Jory Ulrich on 03-05-2022 Basophils/100 WBC (Bld) 0.4 % . [facility] Blood hemoglobin measurement (mass/volume)Ordered By: Jory Ulrich on 03-05-2022 Hemoglobin (Bld) [Mass/Vol] 14.2 g/dL 11.8-15.4 [facility] Blood leukocytes automated c ount (number/volume)Ordered By: Jory Ulrich on 03-05-2022 WBC (Bld) [#/Vol] 8.7 10*3/uL 4.5-11.0 [facility] Eosinophils Auto (Bld) [#/Vo l]Ordered By: Jory Ulrich on 03-05-2022 Eosinophils (Bld) [#/Vol] 0.1 10*3/uL 0.0-0.45 [facility] Eosinophils/100 WBC Auto (Bl d)Ordered By: Jory Ulrich on 03-05-2022 Eosinophils/100 WBC (Bld) 1.3 % . [facility] Erythrocyte distribution wid th Auto (RBC) [Ratio]Ordered By: Jory Ulrich on 03-05-2022 Erythrocyte distribution width (RBC) [Ratio] 14.7 % 11.9-15.3 [facility] Hematocrit Auto (Bld) [Volum e fraction]Ordered By: Jory Ulrich on 03-05-2022 Hematocrit (Bld) [Volume fraction] 41.4 % 34.0-46.4 [facility] Laboratory - Chemistry and C hemistry - challengeOrdered By: Jory Ulrich on 03-05-2022 Cobalamin (Vitamin B12) [Mass/Vol] 213 pg/mL 180-914 [facility] Laboratory - Hematology and Cell countsOrdered By: Jory Ulrich on 03-05-2022 Nucleated RBC/100 WBC (Bld) [Ratio] 0.1 % 0-0.5 [facility] Lymphocytes Auto (Bld) [#/Vo l]Ordered By: Jory Ulrich on 03-05-2022 Lymphocytes (Bld) [#/Vol] 3.2 10*3/uL 1.00-4.8 [facility] Lymphocytes/100 WBC Auto (Bl d)Ordered By: Jory Ulrich on 03-05-2022 Lymphocytes/100 WBC (Bld) 36.6 % . [facility] MCH Auto (RBC) [Entitic mass ]Ordered By: Jory Ulrich on 03-05-2022 MCH (RBC) [Entitic mass] 32.2 pg 24.7-34.3 [facility] MCHC Auto (RBC) [Mass/Vol]Or dered By: Jory Ulrich on 03-05-2022 MCHC (RBC) [Mass/Vol] 34.3 g/dL 32.0-35.0 [facility] MCV Auto (RBC) [Entitic vol] Ordered By: Jory Ulrich on 03-05-2022 MCV (RBC) [Entitic vol] 94.1 fL 80-100 [facility] Monocytes Auto (Bld) [#/Vol] Ordered By: Jory Ulrich on 03-05-2022 Monocytes (Bld) [#/Vol] 0.5 10*3/uL 0.0-0.8 [facility] Monocytes/100 WBC Auto (Bld) Ordered By: Jory Ulrich on 03-05-2022 Monocytes/100 WBC (Bld) 6.1 % . [facility] Neutrophils Auto (Bld) [#/Vo l]Ordered By: Jory Ulrich on 03-05-2022 Neutrophils (Bld) [#/Vol] 4.8 10*3/uL 1.8-7.7 [facility] Neutrophils/100 WBC Auto (Bl d)Ordered By: Jory Ulrich on 03-05-2022 Neutrophils/100 WBC (Bld) 55.6 % . [facility] Platelet mean volume Auto (B ld) [Entitic vol]Ordered By: Jory Ulrich on 03-05-2022 Platelet mean volume (Bld) [Entitic vol] 8.0 fL 6.3-10.7 [facility] Platelets Auto (Bld) [#/Vol] Ordered By: Jory Ulrich on 03-05-2022 Platelets (Bld) [#/Vol] 444 10*3/uL 150-450 [facility] RBC Auto (Bld) [#/Vol]Ordere d By: Jory Ulrich on 03-05-2022 RBC (Bld) [#/Vol] 4.40 10*6/uL 3.60-5.00 [facility] Radiologyon 06-22-2021 XR Cervical spine 4 or 5 Views Normal [facility] Work Phone: MR Cervical spine WO contrast Normal [facility] Work Phone: Basic Metabolic Panel Reflex Mgon 12-31-2020 Anion gap [Moles/Vol] 8 mmol/L Low 9-15 [facility] Comment on above: Performed By: #### B MPX #### [facility] [address] [place] [address] Calcium [Mass/Vol] 8.2 mg/dL Low 8.5-9.9 [facility] Comment on above: Performed By: #### B MPX #### [facility] [address] [place] [address] Chloride [Moles/Vol] 104 mmol/L Normal 95-107 [facility] Comment on above: Performed By: #### B MPX #### [facility] [address] [place] [address] CO2 [Moles/Vol] 26 mmol/L Normal 20-31 [facility] Comment on above: Performed By: #### B MPX #### [facility] [address] [place] [address] Creatinine [Mass/Vol] 0.57 mg/dL Normal 0.50-0.90 [facility] Comment on above: Performed By: #### B MPX #### [facility] [address] [place] [address] GFR >60.0 Normal >60 [facility] Comment on above: Result Comment: >60 mL/min/1.73m2 EGFR, calc. for ages 18 and older using the MDRD formula (not corrected for weight), is valid for stable renal function. Performed By: #### B MPX #### [facility] [address] [place] [address] GFR/1.73 sq M.predicted among blacks MDRD (S/P/Bld) [Vol rate/Area] mL/min/{1.73_m2} Normal >60 [facility] Comment on above: Result Comment: >60 mL/min/1.73m2 EGFR, calc. for ages 18 and older using the MDRD formula (not corrected for weight), is valid for stable renal function. Performed By: #### B MPX #### [facility] [address] [place] [address] Glucose [Mass/Vol] 111 mg/dL Critically high 70-[address] [facility] Comment on above: Performed By: #### B MPX #### [facility] [address] [place] [address] Magnesium [Moles/Vol] 3.9 mmol/L Normal 3.4-4.9 [facility] Comment on above: Performed By: #### B MPX #### [facility] [address] [place] [address] Sodium [Moles/Vol] 138 mmol/L Normal 135-144 [facility] Comment on above: Performed By: #### B MPX #### [facility] [address] [place] [address] Urea nitrogen [Mass/Vol] 4 mg/dL Low 6-20 [facility] Comment on above: Performed By: #### B MPX #### [facility] [address] [place] [address] Basic Metabolic Panel w/ Ref christy to MGOrdered By: Bib Alvarez on 12-31-2020 Anion gap [Moles/Vol] 8 mmol/L Low [facility] [employer] Work Phone: Calcium [Mass/Vol] 8.2 mg/dL Low 8.5 - 9.9 mg/dL [facility] [employer] Work Phone: Chloride [Moles/Vol] 104 mmol/L [facility] [employer] Work Phone: CO2 [Moles/Vol] 26 mmol/L [facility] Work Phone: Creatinine [Mass/Vol] 0.57 mg/dL 0.50 - 0.90 mg/dL [facility] [employer] Work Phone: GFR >60.0 >60 [facility] [employer] Work Phone: Comment on above: >60 mL/min/1.73m2 EG FR, calc. for ages 18 and older using the MDRD formula (not corrected for weight), is valid for stable renal function. GFR Non- >60.0 >60 [employer] Phone: Comment on above: >60 mL/min/1.73m2 EG FR, calc. for ages 18 and older using the MDRD formula (not corrected for weight), is valid for stable renal function. Glucose [Mass/Vol] 111 mg/dL High 70 - 99 mg/dL [employer] Phone: Interpretation and review of laboratory results Abnormal [employer] Phone: Potassium reflex Magnesium 3.9 [employer] Phone: Sodium [Moles/Vol] 138 mmol/L [employer] Phone: Urea nitrogen (BldV) [Mass/Vol] 4 mg/dL Low 6 - 20 mg/dL [employer] Phone: [employer] Phone: CBC With Platelet and Differ entialon 12-31-2020 Anisocytosis Ql (Bld) 3+ Normal [facility] Comment on above: Performed By: #### C BCWD #### [facility] [address] [place] [address] Hypochromia 1+ Normal [facility] Comment on above: Performed By: #### C BCWD #### [facility] [address] [place] [address] Platelet Slide Review Normal Normal [facility] Comment on above: Performed By: #### C BCWD #### [facility] [address] [place] [address] Basophils (Bld) [#/Vol] 0.0 10*3/uL Normal 0.0-0.2 [facility] Comment on above: Performed By: #### C BCWD #### [facility] [address] [place] [address] Basophils/100 WBC (Bld) 0.2 % Normal [facility] Comment on above: Performed By: #### C BCWD #### [facility] [address] [place] [address] Eosinophils (Bld) [#/Vol] 0.0 10*3/uL Normal 0.0-0.7 [facility] Comment on above: Performed By: #### C BCWD #### [facility] [address] [place] [address] Eosinophils/100 WBC (Bld) 0.0 % Normal [facility] Comment on above: Performed By: #### C BCWD #### [facility] [address] [place] [address] Erythrocyte distribution width (RBC) [Ratio] 27.5 % Critically high 11.5-14.5 [facility] Comment on above: Performed By: #### C BCWD #### [facility] [address] [place] [address] Hematocrit (Bld) [Volume fraction] 30.9 % Low 37.0-47.0 [facility] Comment on above: Performed By: #### C BCWD #### [facility] [address] [place] [address] Hemoglobin (Bld) [Mass/Vol] 10.1 g/dL Low 12.0-16.0 [facility] Comment on above: Performed By: #### C BCWD #### [facility] [address] [place] [address] Lymphocytes (Bld) [#/Vol] 1.9 10*3/uL Normal 1.0-4.8 [facility] Comment on above: Performed By: #### C BCWD #### [facility] [address] [place] [address] Lymphocytes/100 WBC (Bld) 16.8 % Normal [facility] Comment on above: Performed By: #### C BCWD #### [facility] [address] [place] [address] MCH (RBC) [Entitic mass] 27.7 pg Normal 27.0-31.3 [facility] Comment on above: Performed By: #### C BCWD #### [facility] [address] [place] [address] MCHC 32.7 % Low 33.0-37.0 [facility] Comment on above: Performed By: #### C BCWD #### [facility] [address] [place] [address] MCV (RBC) [Entitic vol] 84.7 fL Normal 82.0-100.0 [facility] Comment on above: Performed By: #### C BCWD #### [facility] [address] [place] [address] Monocytes (Bld) [#/Vol] 0.9 10*3/uL Critically high 0.2-0. 8 [facility] Comment on above: Performed By: #### C BCWD #### [facility] [address] [place] [address] Monocytes/100 WBC (Bld) 7.8 % Normal [facility] Comment on above: Performed By: #### C BCWD #### [facility] [address] [place] [address] Neutrophils (Bld) [#/Vol] 8.6 10*3/uL Critically high 1.4-6.5 [facility] Comment on above: Performed By: #### C BCWD #### [facility] [address] [place] [address] Neutrophils/100 WBC (Bld) 75.2 % Normal [facility] Comment on above: Performed By: #### C BCWD #### [facility] [address] [place] [address] Platelets (Bld) [#/Vol] 307 10*3/uL Normal 130-400 [facility] Comment on above: Performed By: #### C BCWD #### [facility] [address] [place] [address] RBC (Bld) [#/Vol] 3.65 10*6/uL Low 4.20-5.40 [facility] Comment on above: Performed By: #### C BCWD #### [facility] [address] [place] [address] WBC (Bld) [#/Vol] 11.4 10*3/uL Critically high 4.8-10.8 [facility] Comment on above: Performed By: #### C BCWD #### [facility] [address] [place] [address] CBC auto differentialOrdered By: Bib Alvarez on 12-31-2020 Anisocytosis Ql (Bld) 3+ [facility] [employer] Work Phone: Basophils (Bld) [#/Vol] 0.0 10*3/uL 0.0 - 0.2 K/uL [employer] Phone: Basophils/100 WBC (Bld) 0.2 % [facility]: Eosinophils (Bld) [#/Vol] 0.0 10*3/uL 0.0 - 0.7 K/uL [employer] Phone: Eosinophils/100 WBC (Bld) 0 % [employer] Phone: Hematocrit (Bld) [Volume fraction] 30.9 % Low 37.0 - 47.0 % [employer] Phone: Hemoglobin.gastrointest inal spec 1 Ql (Stl) 10.1 g/dL Low 12.0 - 16.0 g/dL [employer] Phone: Hypochromia 1+ [employer] Phone: Interpretation and review of laboratory results Abnormal [employer] Phone: Lymphocytes (Bld) [#/Vol] 1.9 10*3/uL 1.0 - 4.8 K/uL [employer] Phone: Lymphocytes/100 WBC (Bld) 16.8 % [employer] Phone: MCH (RBC) [Entitic mass] 27.7 pg 27.0 - 31.3 pg [employer] Phone: MCHC (RBC) [Mass/Vol] 32.7 % Low 33.0 - 37.0 % [employer] Phone: MCV (RBC) [Entitic vol] 84.7 fL 82.0 - 100.0 fL [employer] Phone: Monocytes (Bld) [#/Vol] 0.9 10*3/uL High 0.2 - 0.8 K/uL [facility]: Monocytes/100 WBC (Bld) 7.8 % [facility] Phone: Neutrophils Absolute 8.6 K/uL High 1.4 - 6 .5 K/uL [facility] Phone: Neutrophils/100 WBC (Bld) 75.2 % [employer] Phone: Platelet distribution width (Bld) [Ratio] 27.5 % High 11.5 - 14.5 % [employer] Phone: PLATELET SLIDE REVIEW Normal [facility] [employer] Phone: Platelets (Bld) [#/Vol] 307 10*3/uL 130 - 400 K/uL [facility] Phone: RBC (Bld) [#/Vol] 3.65 10*6/uL Low [facility] Phone: WBC (Bld) [#/Vol] 11.4 10*3/uL High 4.8 - 10.8 K/uL [employer] Phone: [employer] Phone: Surgical PathologyOrdered By : Bib Alvarez on 12-31-2020 [facility] [address] [place] [address] FINAL SURGICAL PATHOLOGY REPORT Patient Name: MACIE CLOUD Accession No: [id number] Age Sex: 1975 Location: [facility] [id number] Account No: [id number] Collected: 12/30/2020 [facility] Rec No: [id number] Received: 12/30/2020 Attend Phys: BIB ALVAREZ Completed: [...] cassettes after a brief decalcification. ALIFA/SCDAN CPT: 73481 X1 [id number] X1 RYAN ANTOINE M.D. 12/31/2020 Electronically signed out by Page 1 of 1 [employer] Phone: [employer] Phone: XR LUMBAR SPINE (2-3 VIEWS)O rdered By: Bib Alvarez on 12-31-2020 Postsurgical changes. [facility] [employer] Phone: Migel, Chpo Incoming Radiant Results From [employer]/Practice Management [employer] - 12/31/2020 1:45 PM EDT EXAMINATION: XR [...] subadjacent soft tissue emphysema. IMPRESSION: Postsurgical changes. [facility] [employer] Work Phone: [facility] [employer] Work Phone: Basic Metabolic Panel Reflex Mgon 12-30-2020 Anion gap [Moles/Vol] 6 mmol/L Low 9-15 [facility] Comment on above: Performed By: #### B MPX #### [facility] [address] [place] [address] Calcium [Mass/Vol] 8.6 mg/dL Normal 8.5-9.9 [facility] Comment on above: Performed By: #### B MPX #### [facility] [address] [place] [address] Chloride [Moles/Vol] 104 mmol/L Normal 95-107 [facility] Comment on above: Performed By: #### B MPX #### [facility] [address] [place] [address] CO2 [Moles/Vol] 28 mmol/L Normal 20-31 [facility] Comment on above: Performed By: #### B MPX #### [facility] [address] [place] [address] Creatinine [Mass/Vol] 0.44 mg/dL Low 0.50-0.90 [facility] Comment on above: Performed By: #### B MPX #### [facility] [address] [place] [address] GFR >60.0 Normal >60 [facility] Comment on above: Result Comment: >60 mL/min/1.73m2 EGFR, calc. for ages 18 and older using the MDRD formula (not corrected for weight), is valid for stable renal function. Performed By: #### B MPX #### [facility] [address] [place] [address] GFR/1.73 sq M.predicted among blacks MDRD (S/P/Bld) [Vol rate/Area] mL/min/{1.73_m2} Normal >60 [facility] Comment on above: Result Comment: >60 mL/min/1.73m2 EGFR, calc. for ages 18 and older using the MDRD formula (not corrected for weight), is valid for stable renal function. Performed By: #### B MPX #### [facility] [address] [place] [address] Glucose [Mass/Vol] 150 mg/dL Critically high 70-99 [facility] Comment on above: Performed By: #### B MPX #### [facility] [address] [place] [address] Magnesium [Moles/Vol] 4.2 mmol/L Normal 3.4-4.9 [facility] Comment on above: Performed By: #### B MPX #### [facility] [address] [place] [address] Sodium [Moles/Vol] 138 mmol/L Normal 135-144 [facility] Comment on above: Performed By: #### B MPX #### [facility] [address] [place] [address] Urea nitrogen [Mass/Vol] 8 mg/dL Normal 6-20 [facility] Comment on above: Performed By: #### B MPX #### [facility] [address] [place] [address] Basic Metabolic Panel w/ Ref christy to MGOrdered By: Bib Alvarez on 12-30-2020 Anion gap [Moles/Vol] 6 mmol/L Low [facility] [employer] Work Phone: Calcium [Mass/Vol] 8.6 mg/dL 8.5 - 9.9 mg/dL [facility] [employer] Work Phone: Chloride [Moles/Vol] 104 mmol/L [facility] [employer] Work Phone: CO2 [Moles/Vol] 28 mmol/L [facility] Work Phone: Creatinine [Mass/Vol] 0.44 mg/dL Low 0.50 - 0.90 mg/dL [employer] Phone: GFR >60.0 >60 [employer] Phone: Comment on above: >60 mL/min/1.73m2 EG FR, calc. for ages 18 and older using the MDRD formula (not corrected for weight), is valid for stable renal function. GFR Non- >60.0 >60 [employer] Phone: Comment on above: >60 mL/min/1.73m2 EG FR, calc. for ages 18 and older using the MDRD formula (not corrected for weight), is valid for stable renal function. Glucose [Mass/Vol] 150 mg/dL High 70 - 99 mg/dL [employer] Phone: Interpretation and review of laboratory results Abnormal [employer] Phone: Potassium reflex Magnesium 4.2 [employer] Phone: Sodium [Moles/Vol] 138 mmol/L [employer] Phone: Urea nitrogen (BldV) [Mass/Vol] 8 mg/dL 6 - 20 mg/dL [employer] Phone: [employer] Phone: CBC With Platelet No Differe ntialon 12-30-2020 Erythrocyte distribution width (RBC) [Ratio] 27.2 % Critically high 11.5-14.5 [facility] Comment on above: Performed By: #### C BCND #### [facility] [address] [place] [address] Hematocrit (Bld) [Volume fraction] 32.0 % Low 37.0-47.0 [facility] Comment on above: Performed By: #### C BCND #### [facility] [address] [place] [address] Hemoglobin (Bld) [Mass/Vol] 10.2 g/dL Low 12.0-16.0 [facility] Comment on above: Performed By: #### C BCND #### [facility] [address] [place] [address] MCH (RBC) [Entitic mass] 27.1 pg Normal 27.0-31.3 [facility] Comment on above: Performed By: #### C BCND #### [facility] [address] [place] [address] MCHC 32.0 % Low 33.0-37.0 [facility] [facility] Comment on above: Performed By: #### C BCND #### [facility] [address] [place] [address] MCV (RBC) [Entitic vol] 84.5 fL Normal 82.0-100.[address] [facility] Comment on above: Performed By: #### C BCND #### [facility] [address] [place] [address] Platelets (Bld) [#/Vol] 302 10*3/uL Normal 130-400 [facility] Comment on above: Performed By: #### C BCND #### [facility] [address] [place] [address] RBC (Bld) [#/Vol] 3.79 10*6/uL Low 4.20-5.40 [facility] Comment on above: Performed By: #### C BCND #### [facility] [address] [place] [address] WBC (Bld) [#/Vol] 11.8 10*3/uL Critically high 4.8-10.8 [facility] Comment on above: Performed By: #### C BCND #### [facility] [address] [place] [address] CBC without DiffOrdered By: Bib Alvarez on 12-30-2020 Hematocrit (Bld) [Volume fraction] 32.0 % Low 37.0 - 47.0 % [facility] [employer] Work Phone: Hemoglobin.gastrointest inal spec 1 Ql (Stl) 10.2 g/dL Low 12.0 - 16.0 g/dL [employer] Phone: Interpretation and review of laboratory results Abnormal [employer] Phone: MCH (RBC) [Entitic mass] 27.1 pg 27.0 - 31.3 pg [employer] Phone: MCHC (RBC) [Mass/Vol] 32.0 % Low 33.0 - 37.0 % [employer] Phone: MCV (RBC) [Entitic vol] 84.5 fL 82.0 - 100.0 fL [employer] Phone: Platelet distribution width (Bld) [Ratio] 27.2 % High 11.5 - 14.5 % [employer] Phone: Platelets (Bld) [#/Vol] 302 10*3/uL 130 - 400 K/uL [employer] Phone: RBC (Bld) [#/Vol] 3.79 10*6/uL Low [employer] Phone: WBC (Bld) [#/Vol] 11.8 10*3/uL High 4.8 - 10.8 K/uL [employer] Phone: [employer] Phone: FLUORO FOR SURGICAL PROCEDUR ESOrdered By: Bib Alvarez on 12-30-2020 Migel, po Incoming Radiant Results From [employer]/Practice Management e-Toolss - 12/30/2020 1:23 PM EDT FLUORO FOR SURGICAL PROCEDURES : 12/30/2020 8:47 AM CLINICAL HISTORY: R52 Pain ICD10. Lumbar spine fusion. COMPARISON: None available. Intraoperative fluoroscopy was provided for Dr. Alvarez 's procedure. A total of 11.22 mGy of fluoroscopy was used, with 4 fluoroscopic stills saved. No diagnostic images were obtained. Please see Dr. Alvarez's surgical notes for complete details. [employer] Phone: [facility] Work Phone: Surgical Specimenon 12-31-19 21 Surgical Specimen [facility] [address] [place], [place] [id number] FINAL SURGICAL PATHOLOGY REPORT Patient Name: MACIE CLOUD Accession No: [id number] Age Sex: 1975 Location: [facility] [id number] Account No: [id number] Collected: 12/30/2020 [facility] Rec No: [id number] Received: 12/30/2020 Attend Phys: BIB KIM Completed: 12/31/2020 Perform Phys: BIB KIM FINAL [...] cassettes after a brief decalcification. ALIFA/SCDAN CPT: 17447 X1 00492 X1 RYAN ANTOINE M.D. 12/31/2020 Electronically signed out by Page 1 of 1 Invalid Interpretation Code [facility] Comment on above: Performed By: #### S UR #### [address] [id number] COVID-19, NAAon 12-23-2020 SARS-CoV-2 (COVID-19) RNA GERONIMO+probe Ql (Unsp spec) Not detected Normal Not Detect [facility] Comment on above: Result Comment: This nucleic acid amplification test was developed and its performance characteristics determined by [employer]. Nucleic acid amplification tests include RT-PCR and [...] detected) result in this assay. Performed at: [facility] [id number] Transaction Manager: Ángel Higgins PhD, Phone: [phone] Performed By: #### I RCOV #### [facility] [address] [place] [address] Basic Metabolic Panelon 05-1 Anion gap [Moles/Vol] 15 mmol/L Normal 9-15 [facility] Comment on above: Performed By: #### B MP #### [facility] [address] [place] [address] Calcium [Mass/Vol] 10.2 mg/dL Critically high 8.5-9.[address] [facility] Comment on above: Performed By: #### B MP #### [facility] [address] [place] [address] Chloride [Moles/Vol] 96 mmol/L Normal 95-107 [facility] Comment on above: Performed By: #### B MP #### [facility] [address] [place] [address] CO2 [Moles/Vol] 26 mmol/L Normal 20-31 [facility] Comment on above: Performed By: #### B MP #### [facility] [address] [place] [address] Creatinine [Mass/Vol] 0.65 mg/dL Normal 0.50-0.90 [facility] Comment on above: Performed By: #### B MP #### [facility] [address] [place] [address] GFR >60.0 Normal >60 [facility] Comment on above: Result Comment: >60 mL/min/1.73m2 EGFR, calc. for ages 18 and older using the MDRD formula (not corrected for weight), is valid for stable renal function. Performed By: #### B MP #### [facility] [address] [place] [address] GFR/1.73 sq M.predicted among blacks MDRD (S/P/Bld) [Vol rate/Area] mL/min/{1.73_m2} Normal >60 [facility] Comment on above: Result Comment: >60 mL/min/1.73m2 EGFR, calc. for ages 18 and older using the MDRD formula (not corrected for weight), is valid for stable renal function. Performed By: #### B MP #### [facility] [address] [place] [address] Glucose [Mass/Vol] 86 mg/dL Normal 70-99 [facility] Comment on above: Performed By: #### B MP #### [facility] [address] [place] [address] Potassium [Moles/Vol] 4.3 mmol/L Normal 3.4-4.9 [facility] Comment on above: Performed By: #### B MP #### [facility] [address] [place] [address] Sodium [Moles/Vol] 137 mmol/L Normal 135-144 [facility] Comment on above: Performed By: #### B MP #### [facility] [address] [place] [address] Urea nitrogen [Mass/Vol] 9 mg/dL Normal 6-20 [facility] Comment on above: Performed By: #### B MP #### [facility] [address] [place] [address] CBC With Platelet No Differe ntialon 12-22-2020 Erythrocyte distribution width (RBC) [Ratio] 29.1 % Critically high 11.5-14.5 [facility] Comment on above: Performed By: #### C BCND #### [facility] [address] [place] [address] Hematocrit (Bld) [Volume fraction] 41.5 % Normal 37.0-47.0 [facility] Comment on above: Performed By: #### C BCND #### [facility] [address] [place] [address] Hemoglobin (Bld) [Mass/Vol] 13.3 g/dL Normal 12.0-16.0 [facility] Comment on above: Performed By: #### C BCND #### [facility] [address] [place] [address] MCH (RBC) [Entitic mass] 26.7 pg Low 27.0-31.3 [facility] Comment on above: Performed By: #### C BCND #### [facility] [address] [place] [address] MCHC 32.0 % Low 33.0-37.0 [facility] Comment on above: Performed By: #### C BCND #### [facility] [address] [place] [address] MCV (RBC) [Entitic vol] 83.5 fL Normal 82.0-100.[address] [facility] Comment on above: Performed By: #### C BCND #### [facility] [address] [place] [address] Platelets (Bld) [#/Vol] 483 10*3/uL Critically high 130-40 0 [facility] Comment on above: Performed By: #### C BCND #### [facility] [address] [place] [address] RBC (Bld) [#/Vol] 4.97 10*6/uL Normal 4.20-5.40 [facility] Comment on above: Performed By: #### C BCND #### [facility] [address] [place] [address] WBC (Bld) [#/Vol] 11.6 10*3/uL Critically high 4.8-10.8 [facility] Comment on above: Performed By: #### C BCND #### [facility] [address] [place] [address] COVID-19, NAAon 12-22-2020 Source Swab Anterior nares Normal [facility] Comment on above: Performed By: #### I RCOV #### [facility] [address] [place] [address] Partial Thromboplastin Timeo n 12-22-2020 aPTT Coag (Bld) [Time] 28.5 s Normal 24.4-36.8 [facility] Comment on above: Result Comment: Effe ctive 06/18/2020: Heparin Therapeutic Range: 64.0 ? 98.0 seconds. Performed By: #### P TT #### [facility] [address] [place] [address] Prothrombin Timeon INR Coag (PPP) [Relative time] 0.9 {INR} Normal [facility] Comment on above: Performed By: #### B MP #### [facility] [address] [place] [address] PT Coag (PPP) [Time] 12.7 s Normal 12.3-14.9 [facility] Comment on above: Performed By: #### B MP #### [facility] [address] [place] [address] Type and Screen Capture 3 sc rn cellon 12-22-2020 Type and Screen Capture 3 scrn cell PATIENT: PEDRO LUIS Thacker LOC: [facility] BILL# : [id number] : 1975 SEX: F ORDERED BY: CLAUDETTE Cespedes ORDERED : 12/22/2020 11:03 COLLECTED: 12/22/2020 11:04 ORDER : [id number] RECEIVED : 12/22/2020 15:08 ------ TEST NAME RESULT UNITS RANGES ABN FL [facility] Capture O POS F Antibody 3 Cell Scrn Captu NEG F ----- Normal [facility] Comment on above: Performed By: #### B MP #### [facility] [address] [place] [id number] COVID-19, NAAon 10-29-2020 SARS-CoV-2 (COVID-19) RNA GERONIMO+probe Ql (Unsp spec) Not detected Normal Not Detect [facility] Comment on above: Result Comment: This nucleic acid amplification test was developed and its performance characteristics determined by [employer]. Nucleic acid amplification tests include RT-PCR and [...] detected) result in this assay. Performed at: [employer] [facility] [address] [facility], [place], [place] [id number] Transaction Manager: Mars Kinney MD, Phone: [phone] Performed By: #### I RCOV #### [facility] [address] [place] [address] Basic Metabolic Panelon 10-13 Anion gap [Moles/Vol] 13 mmol/L Normal 9-15 [facility] Comment on above: Performed By: #### B MP #### [facility] [address] [place] [address] Calcium [Mass/Vol] 9.2 mg/dL Normal 8.5-9.9 [facility] Comment on above: Performed By: #### B MP #### [facility] [address] [place] [address] Chloride [Moles/Vol] 100 mmol/L Normal 95-107 [facility] Comment on above: Performed By: #### B MP #### [facility] [address] [place] [address] CO2 [Moles/Vol] 25 mmol/L Normal 20-31 [facility] Comment on above: Performed By: #### B MP #### [facility] [address] [place] [address] Creatinine [Mass/Vol] 0.58 mg/dL Normal 0.50-0.90 [facility] Comment on above: Performed By: #### B MP #### [facility] [address] [place] [address] GFR >60.0 Normal >60 [facility] Comment on above: Result Comment: >60 mL/min/1.73m2 EGFR, calc. for ages 18 and older using the MDRD formula (not corrected for weight), is valid for stable renal function. Performed By: #### B MP #### [facility] [address] [place] [address] GFR/1.73 sq M.predicted among blacks MDRD (S/P/Bld) [Vol rate/Area] mL/min/{1.73_m2} Normal >60 [facility] Comment on above: Result Comment: >60 mL/min/1.73m2 EGFR, calc. for ages 18 and older using the MDRD formula (not corrected for weight), is valid for stable renal function. Performed By: #### B MP #### [facility] [address] [place] [address] Glucose [Mass/Vol] 100 mg/dL Critically high 70-[address] [facility] Comment on above: Performed By: #### B MP #### [facility] [address] [place] [address] Potassium [Moles/Vol] 4.7 mmol/L Normal 3.4-4.9 [facility] Comment on above: Performed By: #### B MP #### [facility] [address] [place] [address] Sodium [Moles/Vol] 138 mmol/L Normal 135-144 [facility] Comment on above: Performed By: #### B MP #### [facility] [address] [place] [address] Urea nitrogen [Mass/Vol] 10 mg/dL Normal 6-20 [facility] Comment on above: Performed By: #### B MP #### [facility] [address] [place] [address] CBC With Platelet No Differe ntialon 10-27-2020 Erythrocyte distribution width (RBC) [Ratio] 21.3 % Critically high 11.5-14.5 [facility] Comment on above: Performed By: #### C BCND #### [facility] [address] [place] [address] Hematocrit (Bld) [Volume fraction] 31.1 % Low 37.0-47.0 [facility] Comment on above: Performed By: #### C BCND #### [facility] [address] [place] [address] Hemoglobin (Bld) [Mass/Vol] 9.7 g/dL Low 12.0-16.0 [facility] Comment on above: Performed By: #### C BCND #### [facility] [address] [place] [address] MCH (RBC) [Entitic mass] 23.0 pg Low 27.0-31.3 [facility] Comment on above: Performed By: #### C BCND #### [facility] [address] [place] [address] MCHC 31.2 % Low 33.0-37.0 [facility] Comment on above: Performed By: #### C BCND #### [facility] [address] [place] [address] MCV (RBC) [Entitic vol] 73.7 fL Low 82.0-100.[address] [facility] Comment on above: Performed By: #### C BCND #### [facility] [address] [place] [address] Platelets (Bld) [#/Vol] 367 10*3/uL Normal 130-400 [facility] Comment on above: Performed By: #### C BCND #### [facility] [address] [place] [address] RBC (Bld) [#/Vol] 4.22 10*6/uL Normal 4.20-5.40 [facility] Comment on above: Performed By: #### C BCND #### [facility] [address] [place] [address] WBC (Bld) [#/Vol] 10.0 10*3/uL Normal 4.8-10.8 [facility] Comment on above: Performed By: #### C BCND #### [facility] [address] [place] [address] COVID-19, NAAon 10-27-2020 Source Swab Anterior nares Normal [facility] Comment on above: Performed By: #### I RCOV #### [facility] [address] [facility] [address] Partial Thromboplastin Timeo n 10-27-2020 aPTT Coag (Bld) [Time] 27.9 s Normal 24.4-36.[address] [facility] Comment on above: Result Comment: Effe ctive 06/18/2020: Heparin Therapeutic Range: 64.0 ? 98.0 seconds. Performed By: #### P TT #### [facility] [address] [facility] [address] Prothrombin Timeon INR Coag (PPP) [Relative time] 0.9 {INR} Normal [facility] Comment on above: Performed By: #### P T #### [facility] [address] [facility] [address] PT Coag (PPP) [Time] 12.4 s Normal 12.3-14.9 [facility] Comment on above: Performed By: #### P T #### [facility] [address] [facility] [address] Type and Screen Capture 3 sc rn cellon 10-27-2020 Type and Screen Capture 3 scrn cell PATIENT: [facility]ED[facility]acker [facility]# : [id number] : 1975 SEX: F ORDERED BY: CLAUDETTE Cespedes ORDERED : 10/27/2020 10:58 COLLECTED: 10/27/2020 10:55 ORDER : [id number] RECEIVED : 10/27/2020 14:31 ------ TEST NAME RESULT UNITS RANGES ABN FL [facility] Capture O POS F Antibody 3 Cell Scrn Captu NEG F ----- Normal [facility] Comment on above: Performed By: #### T S3C #### [facility] [address] [place] [address] Vital Signs Date Time Vital Sign Value Performing Clinician Facility 05-22-2025 15:00-0400 Body temperature 98.6 [degF] Stv 1 [facility] 05-22-2025 15:00-0400 Diastolic blood pressure 102 mm[Hg] Stv 1 [facility] 05-22-2025 15:00-0400 Heart rate 65 /min Stv 1 [facility] 05-22-2025 15:00-0400 Respiratory rate 16 /min Stv 1 [facility] 05-22-2025 15:00-0400 SaO2% (BldA) [Mass fraction] 100 % Stv 1 [facility] 05-22-2025 15:00-0400 Systolic blood pressure 202 mm[Hg] Stv 1 [facility] 04-25-2025 10:04-0400 Body height 171.5 cm Lora Power MD Work Phone: [facility] 04-25-2025 10:04-0400 Body mass index (BMI) [Ratio] 18.83 kg/m2 Lora Power MD Work Phone: [facility] 04-25-2025 10:04-0400 Body weight 55.34 kg Lora Power MD Work Phone: [facility] 04-25-2025 10:04-0400 Diastolic blood pressure 102 mm[Hg] Lora Power MD Work Phone: [facility] 04-25-2025 10:04-0400 Systolic blood pressure 178 mm[Hg] Lora Power MD Work Phone: [facility] 04-16-2025 13:01-0400 Body height 170.18 cm [facility] 04-16-2025 13:01-0400 Body mass index (BMI) [Ratio] 17.6 kg/m2 [facility] 04-16-2025 13:01-0400 Body weight 51.25 kg [facility] 04-16-2025 13:01-0400 Diastolic blood pressure 93 mm[Hg] [facility] 04-16-2025 13:01-0400 Heart rate 97 /min [facility] 04-16-2025 13:01-0400 Systolic blood pressure 161 mm[Hg] [facility] 03-20-2025 12:41-0400 Inhaled oxygen flow rate 2 L/min PHYSICIAN NO [facility] 03-20-2025 11:13-0400 Body temperature 98.3 [degF] PHYSICIAN NO [facility] 03-20-2025 11:13-0400 Diastolic blood pressure 64 mm[Hg] PHYSICIAN NO [facility] 03-20-2025 11:13-0400 Heart rate 95 /min PHYSICIAN NO [facility] 03-20-2025 11:13-0400 Respiratory rate 24 /min PHYSICIAN NO [facility] 03-20-2025 11:13-0400 SaO2% (BldA) [Mass fraction] 95 % PHYSICIAN NO [facility] 03-20-2025 11:13-0400 Systolic blood pressure 119 mm[Hg] PHYSICIAN NO [facility] 03-20-2025 05:48-0400 Body weight 56.2 kg PHYSICIAN NO [facility] 03-19-2025 15:55-0400 Body height 170.18 cm PHYSICIAN NO [facility] 03-19-2025 15:53-0400 Inhaled oxygen concentration 70 % PHYSICIAN NO [facility] 09-27-2024 15:38-0500 Body height 171.5 cm Lora Power MD Work Phone: [facility] 09-27-2024 15:38-0500 Body mass index (BMI) [Ratio] 18.83 kg/m2 Lora Power MD Work Phone: [facility] 09-27-2024 15:38-0500 Body weight 55.34 kg Lora Power MD Work Phone: [facility] 09-27-2024 15:38-0500 Diastolic blood pressure 104 mm[Hg] Lora Power MD Work Phone: [facility] 09-27-2024 15:38-0500 Systolic blood pressure 182 mm[Hg] Lora Power MD Work Phone: [facility] 09-13-2024 15:36-0500 Body height 170.18 cm PHYSICIAN [facility] 09-13-2024 15:36-0500 Body temperature 97.8 [degF] PHYSICIAN NO [facility] 09-13-2024 15:36-0500 Body weight 56 kg PHYSICIAN [facility] 09-13-2024 15:36-0500 Diastolic blood pressure 82 mm[Hg] PHYSICIAN NO [facility] 09-13-2024 15:36-0500 Heart rate 84 /min PHYSICIAN NO [facility] 09-13-2024 15:36-0500 Respiratory rate 18 /min PHYSICIAN [facility] 09-13-2024 15:36-0500 SaO2% (BldA) [Mass fraction] 96 % PHYSICIAN NO [facility] 09-13-2024 15:36-0500 Systolic blood pressure 194 mm[Hg] PHYSICIAN [facility] 05-22-2024 10:28-0400 Body mass index (BMI) [Ratio] 18.83 kg/m2 Rio Ramirez SOAKER Work Phone: [facility] 05-22-2024 10:28-0400 Body temperature 96.6 [degF] Rio Ramirez SOAKER Work Phone: [facility] 05-22-2024 10:28-0400 Body weight 55.34 kg Rio Ramirez SOAKER Work Phone: [facility] 05-22-2024 10:28-0400 Diastolic blood pressure 76 mm[Hg] Rio Ramirez SOAKER Work Phone: [facility] 05-22-2024 10:28-0400 Heart rate 79 /min Rio Ramirez SOAKER Work Phone: [facility] 05-22-2024 10:28-0400 SaO2% (BldA) [Mass fraction] 96 % Rio Ramirez SOAKER Work Phone: [facility] 05-22-2024 10:28-0400 Systolic blood pressure 122 mm[Hg] Rio Ramirez SOAKER Work Phone: [facility] 10-12-2023 11:08-0500 Diastolic blood pressure 63 mm[Hg] Prem Ding MD Work Phone: [facility] [employer] 10-12-2023 11:08-0500 Heart rate 102 /min Prem Ding MD Work Phone: [facility] [employer] 10-12-2023 11:08-0500 Respiratory rate 16 /min Prem Ding MD Work Phone: [facility] [employer] 10-12-2023 11:08-0500 SaO2% (BldA) [Mass fraction] 96 % Prem Ding MD Work Phone: [facility] [employer] 10-12-2023 11:08-0500 Systolic blood pressure 114 mm[Hg] Prem Ding MD Work Phone: [facility] [employer] 10-12-2023 06:05-0500 Body temperature 97.3 [degF] Prem Ding MD Work Phone: [facility] [employer] 10-11-2023 09:41-0500 Body mass index (BMI) [Ratio] 18.56 kg/m2 Prem Ding MD Work Phone: [facility] [employer] 10-11-2023 09:41-0500 Body weight 53.75 kg Prem Ding MD Work Phone: [facility] [employer] 10-11-2023 09:34-0500 Body height 170.2 cm Prem Ding MD Work Phone: [facility] 09-27-2023 09:10-0500 Diastolic blood pressure 95 mm[Hg] PHYSICIAN NO [facility] 09-27-2023 09:10-0500 Heart rate 85 /min PHYSICIAN NO [facility] 09-27-2023 09:10-0500 Respiratory rate 20 /min PHYSICIAN NO [facility] 09-27-2023 09:10-0500 SaO2% (BldA) [Mass fraction] 98 % PHYSICIAN NO [facility] 09-27-2023 09:10-0500 Systolic blood pressure 180 mm[Hg] PHYSICIAN NO [facility] 09-27-2023 08:30-0500 Inhaled oxygen flow rate 2 L/min PHYSICIAN NO [facility] 09-27-2023 04:28-0500 Body temperature 97.4 [degF] PHYSICIAN NO [facility] 09-26-2023 13:01-0500 Body height 170.18 cm PHYSICIAN NO [facility] 09-26-2023 13:01-0500 Body weight 55.33 kg PHYSICIAN NO [facility] 06-17-2023 20:40-0400 Body height 170.18 cm DO Cristiano House Work Phone: [facility] 06-17-2023 20:40-0400 Body temperature 98 [degF] DO Cristiano House Work Phone: [facility] 06-17-2023 20:40-0400 Body weight 55.33 kg DO Cristiano House Work Phone: [facility] 06-17-2023 20:40-0400 Diastolic blood pressure 78 mm[Hg] DO Cristiano House Work Phone: [facility] 06-17-2023 20:40-0400 Heart rate 102 /min DO Cristiano House Work Phone: [facility] 06-17-2023 20:40-0400 Respiratory rate 18 /min DO Cristiano House Work Phone: [facility] 06-17-2023 20:40-0400 SaO2% (BldA) [Mass fraction] 96 % DO Cristiano House Work Phone: [facility] 06-17-2023 20:40-0400 Systolic blood pressure 108 mm[Hg] DO Cristiano House Work Phone: [facility] 04-12-2023 13:27-0400 Diastolic blood pressure 87 mm[Hg] [facility] 04-12-2023 13:27-0400 Heart rate 74 /min [facility] 04-12-2023 13:27-0400 Respiratory rate 14 /min [facility] 04-12-2023 13:27-0400 Systolic blood pressure 149 mm[Hg] [facility] 03-09-2023 13:00-0400 Body height 170.18 cm Sobeida Blades Other [employer] [facility] [employer] Other 03-09-2023 13:00-0400 Body mass index (BMI) [Ratio] 18.64 kg/m2 Sobeida Blades Other [employer] Other 03-09-2023 13:00-0400 Body weight 53.98 kg Sobeida Blades Other [employer] Other 03-09-2023 13:00-0400 Diastolic blood pressure 62 mm[Hg] Sobeida Blades Other [employer] Other 03-09-2023 13:00-0400 Systolic blood pressure 118 mm[Hg] Sobeida Blades Other [employer] Other 10-28-2022 18:20-0400 Diastolic blood pressure 96 mm[Hg] DO Cristiano House Work Phone: [facility] 10-28-2022 18:20-0400 Heart rate 91 /min DO Cristiano House Work Phone: [facility] 10-28-2022 18:20-0400 Respiratory rate 18 /min DO Cristiano House Work Phone: [facility] 10-28-2022 18:20-0400 SaO2% (BldA) [Mass fraction] 95 % DO Cristiano House Work Phone: [facility] 10-28-2022 18:20-0400 Systolic blood pressure 167 mm[Hg] DO Cristiano House Work Phone: [facility] 10-28-2022 14:36-0400 Body temperature 98.1 [degF] DO Cristiano House Work Phone: [facility] 10-28-2022 14:35-0400 Body height 170.18 cm DO Cristiano House Work Phone: [facility] 10-28-2022 14:35-0400 Body weight 53.07 kg DO Cristiano House Work Phone: [facility] 09-16-2022 11:49-0500 Diastolic blood pressure 94 mm[Hg] DO Cristiano House Work Phone: [facility] 09-16-2022 11:49-0500 Heart rate 68 /min DO Cristiano House Work Phone: [facility] 09-16-2022 11:49-0500 Respiratory rate 16 /min DO Cristiano House Work Phone: [facility] 09-16-2022 11:49-0500 SaO2% (BldA) [Mass fraction] 99 % DO Cristiano House Work Phone: [facility] 09-16-2022 11:49-0500 Systolic blood pressure 168 mm[Hg] DO Cristiano House Work Phone: [facility] 09-16-2022 09:24-0500 Body height 170.18 cm DO Cristiano Graham Work Phone: [facility] 09-16-2022 09:24-0500 Body temperature 97.7 [degF] DO Cristiano Graham Work Phone: [facility] 09-16-2022 09:24-0500 Body weight 54.43 kg DO Cristiano Graham Work Phone: [facility] 09-13-2022 13:18-0500 Body height 170.2 cm Too Hughes MD Work Phone: [facility] 09-13-2022 13:18-0500 Body weight 57.15 kg Too Hughes MD Work Phone: [facility] 09-13-2022 13:18-0500 Diastolic blood pressure 74 mm[Hg] Too Hughes MD Work Phone: [facility] 09-13-2022 13:18-0500 Heart rate 78 /min Too Hughes MD Work Phone: [facility] 09-13-2022 13:18-0500 Respiratory rate 16 /min Too Hughes MD Work Phone: [facility] 09-13-2022 13:18-0500 SaO2% (BldA) [Mass fraction] 99 % Too Hughes MD Work Phone: [facility] 09-13-2022 13:18-0500 Systolic blood pressure 145 mm[Hg] Too Hughes MD Work Phone: [facility] 11-18-2021 13:45-0400 Body height 170.18 cm Jak Steele Other [employer] Other 11-18-2021 13:45-0400 Body mass index (BMI) [Ratio] 20.36 kg/m2 Jak Steele Other [employer] Other 11-18-2021 13:45-0400 Body temperature 96.6 [degF] Jak Ivette Other [employer] Other 11-18-2021 13:45-0400 Body weight 58.97 kg Jak Leyvanicole Other [employer] Other 11-18-2021 13:45-0400 Diastolic blood pressure 62 mm[Hg] Jak Ivette Other [employer] Other 11-18-2021 13:45-0400 SaO2% (BldA) [Mass fraction] 99 % Jak Ivette Other [employer] Other 11-18-2021 13:45-0400 Systolic blood pressure 102 mm[Hg] Jak Ivette Other [employer] Other 01-01-2021 08:03-0400 Body temperature 98.4 [degF] Bib Alvarez MD Work Phone: [employer] Work Phone: 01-01-2021 08:03-0400 Diastolic blood pressure 56 mm[Hg] Bib Alvarez MD Work Phone: [employer] Work Phone: 01-01-2021 08:03-0400 Heart rate 106 /min Bib Alvarez MD Work Phone: [employer] Work Phone: 01-01-2021 08:03-0400 Respiratory rate 20 /min Bib Alvarez MD Work Phone: [employer] Work Phone: 01-01-2021 08:03-0400 SaO2% (BldA) [Mass fraction] 95 % Bib Alvarez MD Work Phone: [employer] Work Phone: 01-01-2021 08:03-0400 Systolic blood pressure 110 mm[Hg] Bib Alvarez MD Work Phone: [employer] Work Phone: 12-30-2020 07:33-0400 Body height 170.2 cm Bib Alvarez MD Work Phone: [employer] Work Phone: 12-30-2020 07:33-0400 Body mass index (BMI) [Ratio] 20.36 kg/m2 Bib Alvarez MD Work Phone: [employer] Work Phone: 12-30-2020 07:33-0400 Body weight 58.97 kg Bib Alvarez MD Work Phone: [employer] Work Phone: Encounters Encounter Date Encounter Type Care Provider Facility Start: 05-22-2025 ambulatory CRISTIANO Barnes SANTOS [facility] Start: 05-22-2025 End: 05-24-2025 Subsequent hospital visit by physician [facility] Room 2 [facility] CT Scan Comment on above: 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; Cervical radiculopathy; Cervical spinal stenosis Start: 05-19-2025 End: 05-19-2025 ambulatory KATIA LAGOS Not Available Start: 05-06-2025 End: 05-06-2025 ambulatory ELOY MCDANIEL Not Available Start: 04-25-2025 End: 04-25-2025 Bamboo flowsheet Lora Power MD Work Phone: [facility] Start: 04-25-2025 End: 04-25-2025 Lore flowsheet Lora Power MD Work Phone: [facility] Start: 04-25-2025 End: 04-25-2025 Clinical Support Lora Power MD Work Phone: [facility] Comment on above: Other nerve root and plexus disorders (Primary Dx); Status post lumbar spinal fusion; Myalgia Start: 04-16-2025 End: 04-16-2025 ambulatory NON STAFF [facility] Work Phone: Start: 04-16-2025 End: 04-16-2025 Patient encounter procedure Yodit Angelina Rosemary [facility] Work Phone: Start: 04-08-2025 End: 04-08-2025 ambulatory CHUKA ONYENEKE Not Available Start: 03-27-2025 End: 03-27-2025 ambulatory CHUKA ONYENEKE Not Available Start: 03-15-2025 Non-patient / Non-visit Rei Maya Jr [facility] Work Phone: Start: 03-15-2025 End: 03-20-2025 Evaluation and management of inpatient Mohamad Kentrell Facility:[facility] Start: 12-29-2024 End: 12-29-2024 Patient encounter procedure Lora Power MD -MRI [facility] Work Phone: Start: 12-29-2024 End: 12-29-2024 ambulatory Lora Power Facility:[facility] Start: 12-25-2024 End: 12-25-2024 Telephone encounter Shana Jacob Other Phone: [facility] Start: 12-12-2024 End: 12-12-2024 Viridiana Jarrett NP Work Phone: [facility] Comment on above: Claustrophobia (CMS/ HCC) Start: 11-26-2024 End: 11-26-2024 ambulatory LORA POWER Not Available Start: 10-24-2024 End: 10-24-2024 ambulatory CHUKA ONYENEKE Not Available Start: 10-17-2024 End: 10-17-2024 ambulatory CHUKA ONYENEKE Not Available Start: 09-27-2024 End: 09-27-2024 Office outpatient new 45 minutes Lora Power MD Work Phone: [facility] Comment on above: Lumbar radiculopathy (Primary Dx); PHN (postherpetic neuralgia) (CMS/HCC); Status post lumbar spinal fusion; Cervical myelopathy (CMS/HCC) Start: 09-27-2024 End: 09-27-2024 ambulatory LORA POWER Not Available Start: 09-14-2024 End: 09-14-2024 ambulatory ELOY MCDANIEL Not Available Start: 09-13-2024 End: 09-13-2024 Emergency department patient visit PHYSICIAN ABDIRASHID [facility] Work Phone: Start: 05-22-2024 End: 05-22-2024 ambulatory RIO RAMIREZ Not Available Start: 05-22-2024 End: 05-22-2024 Office outpatient visit 25 minutes Rio Ramirez SOAKER Work Phone: [facility] Comment on above: Chronic cough (Prima ry Dx); Rib pain on left side; Inspiratory pain; Closed fracture of multiple ribs of left side, initial encounter Start: 05-07-2024 End: 05-09-2024 Subsequent hospital visit by physician Mady ANAND Work Phone: [facility] Comment on above: Lumbar radiculopathy Start: 04-02-2024 End: 04-02-2024 Clinical Support Ciera Egan PTA [facility] PT Comment on above: Lumbar radiculopathy (Primary Dx); Status post lumbar spinal fusion Start: 04-02-2024 End: 04-02-2024 Bamboo flowsheet Ciera Egan CHEMICAL LAB SUPERVISOR [facility] PT Start: 04-02-2024 End: 04-02-2024 Bamboo flowsheet Ciera Egan CHEMICAL LAB SUPERVISOR [facility] PT Start: 10-11-2023 End: 10-12-2023 Subsequent hospital visit by physician Prem Ding MD Work Phone: [facility] Med Surg Start: 09-27-2023 End: 09-29-2023 Evaluation and management of inpatient CRISTIANO Barnes [facility] Start: 09-26-2023 End: 09-27-2023 Emergency department patient visit PHYSICIAN ABDIRASHID RIVAS [facility] Work Phone: Start: 08-30-2023 End: 08-31-2023 ambulatory [facility] Start: 08-24-2023 End: 08-29-2023 ambulatory [facility] Start: 06-23-2023 End: 06-23-2023 ambulatory DO Cristiano House Work Phone: [facility] Work Phone: Start: 06-23-2023 End: 06-23-2023 Patient encounter procedure DO Cristiano House Work Phone: [facility] [address] Work Phone: Start: 06-20-2023 End: 06-20-2023 ambulatory Sobeida Blades Other [employer] Other Start: 06-20-2023 Telephone encounter Sobeida Blades [facility] [employer] Start: 06-17-2023 End: 06-17-2023 Emergency department patient visit DO Cristiano Graham Work Phone: [facility] Work Phone: Start: 05-18-2023 End: 05-18-2023 ambulatory Sobeida Blades Other [employer] Other Start: 05-18-2023 Telephone encounter Sobeida Blades F PG [facility] Start: 05-17-2023 End: 05-17-2023 ambulatory Sobeida Blades Other [employer] Other Start: 05-17-2023 Telephone encounter Sobeida Blades F PG [facility] Start: 04-12-2023 End: 04-13-2023 ambulatory SOBEIDA A BLADES Facility:[facility] Start: 04-12-2023 End: 04-12-2023 Pain Management Star Sherman [facility] Start: 04-12-2023 End: 04-12-2023 ambulatory DO Cristiano Graham Work Phone: [facility] Work Phone: Start: 04-12-2023 End: 04-12-2023 Patient encounter procedure DO Cristiano Graham Work Phone: [facility] [place] Work Phone: Start: 03-09-2023 End: 03-09-2023 ambulatory Sobeida Jeysons Other [facility] [employer] Other Start: 03-09-2023 Office outpatient vi sit 15 minutes Sobeida Whitney [facility] Start: 02-10-2023 ambulatory Darlyn Kaufman RN [facility] Comment on above: Blood Management Start: 12-17-2022 ambulatory Too lagos MD Work Phone: [facility] [place] Comment on above: Nicotine Testing Start: 12-17-2022 E-mail encounter fro m caregiver Too Hughes MD Work Phone: [facility] Start: 11-20-2022 End: 11-20-2022 ambulatory TOO HUGHES Facility:[facility] Start: 11-20-2022 End: 11-20-2022 ambulatory Too Hughes MD Work Phone: [facility] [place] Comment on above: Cervical myelopathy (HCC) (Primary Dx); Cervical radiculopathy Start: 11-20-2022 End: 11-20-2022 Telemedicine consultation with patient Too Hughes MD Work Phone: [facility] Start: 11-07-2022 ambulatory Too lagos MD Work Phone: [facility] Comment on above: My back and neck Start: 10-28-2022 End: 10-28-2022 Emergency department patient visit DO Cristiano Graham Work Phone: [facility] Work Phone: Start: 10-07-2022 End: 10-08-2022 ambulatory CRISTIANO GRAHAM Facility:[facility] Start: 10-07-2022 End: 10-07-2022 Emergency department patient visit KIKA Rosi Isai Facility:[facility] Start: 10-07-2022 Telephone encounter Too Hughes MD Work Phone: [facility] [place] Comment on above: Surgery recsheduling ; Care Coordination Start: 09-28-2022 ambulatory Too lagos MD Work Phone: [facility] Comment on above: Pain Start: 09-27-2022 End: 09-27-[address] DARCIE CADET Facility:[facility] Start: 09-17-2022 Telephone encounter Too Hughes MD Work Phone: [facility] [place] Comment on above: Schedule Surgery; Ca re Coordination Start: 09-16-2022 End: 09-16-2022 Admission to same day surgery center DO Cristiano Graham Work Phone: [facility] Work Phone: Start: 09-16-2022 End: 09-16-2022 ambulatory DO Cristiano Graham Work Phone: [facility] Work Phone: Start: 09-13-2022 End: 09-13-2022 ambulatory CRISTIANO DOCKERY [place] Facility:[facility] Start: 09-13-2022 End: 09-14-2022 ambulatory TOO HUGHES Facility:[facility] Start: 09-13-2022 End: 09-13-2022 Subsequent hospital visit by physician [facility] Comment on above: Spinal stenosis of c ervical region [M48.02] Start: 09-13-2022 End: 09-13-2022 Patient encounter procedure Too Hughes MD Work Phone: [facility] [place] Comment on above: Spinal stenosis of c ervical region (Primary Dx); Pseudarthrosis following spinal fusion; Lumbar radiculopathy; 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 Start: 08-04-2022 End: 08-04-2022 ambulatory Lei Coats Nick PA-C Work Phone: [facility] Comment on above: My virtual visit Start: 08-04-2022 Telephone encounter Lei Cespedes anel PA-C Work Phone: [facility] Comment on above: Patient Update Start: 07-30-2022 Telephone encounter Joanie Bhavik loera 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 Work Phone: Neurology Comment on above: Opened In Error Appointment Start: 07-21-2022 ambulatory Lei Rojasdelaney blakely PA-C Work Phone: [facility] Comment on above: My test results Start: 07-21-2022 Telephone encounter Lei Coats Rubina ANAND-C Work Phone: Neurology Comment on above: Received Outside Med ical Records Results Start: 07-13-2022 End: 07-13-2022 ambulatory DO Cristiano Graham Work Phone: [facility] Work Phone: Start: 07-13-2022 End: 07-13-2022 Patient encounter procedure DO Cristiano Graham Work Phone: [facility] [place] Start: 06-25-2022 End: 06-26-[address] ERIC HE Facility: Start: 06-21-2022 End: 06-21-2022 ambulatory Michel Venegas Other [employer] Other Start: 06-21-2022 Telephone encounter Michel serrano [facility] [facility] Start: 06-16-2022 End: 06-16-2022 ambulatory Michel Venegas Other [employer] Other Start: 06-16-2022 Telephone encounter Michel serrano [facility] [facility] Start: 05-10-2022 End: 05-10-2022 ambulatory DO Cristiano Graham Work Phone: [facility] Work Phone: Start: 05-10-2022 End: 05-10-2022 Discharged Recurring DO Cristiano Graham Work Phone: [facility] Start: 03-05-2022 End: 03-05-2022 Patient encounter procedure DO Cristiano Graham Work Phone: [facility] [place] Start: 01-01-2022 End: 01-01-2022 ambulatory Lei Pauly Martinez PA-C Work Phone: [facility] Comment on above: Neck pain, chronic ( Primary Dx); Chronic bilateral low back pain with right-sided sciatica Start: 01-01-2022 End: 01-01-2022 Telemedicine consultation with patient Lei Pauly Martinez PA-C Work Phone: [facility] Start: 11-26-2021 End: 11-26-2021 ambulatory Vick Maxwell Other [employer] Other Start: 11-26-2021 Office outpatient vi sit 25 minutes Vick Maxwell [facility] [place] Start: 11-18-2021 End: 11-18-2021 ambulatory Jak Steele Other [employer] Other Start: 11-18-2021 Office outpatient vi sit 10 minutes Jak Steele [facility] Start: 06-25-2021 Chart Update Maia SAUNDERSC Work Phone: [facility] Work Phone: Start: 06-25-2021 Chart Update Maia ANAND-C Work Phone: [facility] Work Phone: Start: 12-30-2020 End: 01-01-2021 Evaluation and management of inpatient SR CRISTIANO [facility] Start: 12-30-2020 End: 01-02-2021 ambulatory SR CRISTIANO [facility] Start: 12-30-2020 End: 01-01-2021 Evaluation and management of inpatient Bib Alvarez MD Work Phone: [facility] Comment on above: Post-op pain (Primar y Dx) Start: 12-30-2020 End: 01-01-2021 Subsequent hospital visit by physician Bib Alvarez MD Work Phone: [facility] Comment on above: Pain Start: 10-27-2020 End: 10-30-[address] [facility] Start: 10-27-2020 End: 10-29-2020 Subsequent hospital visit by physician [facility] Room 6 [facility] Comment on above: Pre-op examination Procedures Date Procedure Procedure Detail Performing Clinician Start: 05-22-2025 Ct cervical spine w/ contrast material Prem Ding MD Work Phone: Start: 05-22-2025 Myelography via lumb ar injection rs&i cervical Prem Ding MD Work Phone: Start: 05-22-2025 Blood count platelet automated James Redfox KIKA Work Phone: Start: 12-29-2024 MRI of lumbar spine with [...] 06-23-2023 MR lumbar spine wo con DO [employer] Work Phone: Start: 06-23-2023 MRI of cervical spin e without contrast DO [employer] Work Phone: Start: 10-28-2022 XR pre/post mri xray DO [employer] Work Phone: Start: 10-28-2022 MRI of cervical spin e without contrast DO [employer] Work Phone: Start: 10-28-2022 MRI of cervical spin e with contrast DO Cristiano Graham Work Phone: Start: 09-16-2022 Colonoscopy DO Cristiano Graham Work Phone: Start: 09-13-2022 Radex entir thrc lmb r crv sac spi w/skull 2/3 vw Too Hughes MD Work Phone: Start: 01-19-2021 Lumbar spinal fusion Bria Sherman Start: 12-31-2020 Radex spine lumbosac ral 2/3 views Bib Alvarez MD Work Phone: Start: 12-31-2020 BASIC METABOLIC PANE L W/ REFLEX TO MG FOR LOW K Bib H. Kim BONILLA Work Phone: Start: 12-31-2020 Blood count complete auto&auto difrntl wbc Bib Alvarez MD Work Phone: Start: 12-30-2020 BASIC METABOLIC PANE L W/ REFLEX TO MG FOR LOW K Bib H. Kim BONILLA Work Phone: Start: 12-30-2020 Blood count complete [...] DTaP/Tdap/Td vaccine (2 - Td or Tdap) [facility] Start: 06-20-2025 End: 06-20-2025 Clinical Support 06/20/2025 1:00 PM EST Clinical Support [facility] [address] [address] Lora Power MD 7[address] [facility] [address] [id number] [facility] Start: 06-19-2025 End: 06-19-2025 Patient encounter procedure 06/19/2025 11:50 AM EST Office Visit [facility] Neurosurgery [address] [place] [address], [address] [place] [address] Prem Ding MD [address] [place] [id number] f/u after CT Cervical Myelogram [facility] Comment on above: f/u after CT Cervical Myelogram Start: 06-03-2025 End: 06-03-2025 Patient encounter procedure 06/03/2025 3:15 PM EDT Initial consult [facility] [address] [place] [id number] Felix Camarena, DO [address] [place] [address] M54.16 (ICD-10-CM) - Radiculopathy, lumbar region [facility] Comment on above: M54.16 (ICD-10-CM) - Radiculopathy, lumb ar region Start: 04-25-2025 End: 04-25-2025 Clinical Support 04/25/2025 10:00 AM EDT Clinical Support [facility] [address] [place] [address] Lora Power MD [address] Maria Díaz [address] [place] [address] [phone] Arrived [facility] Comment on above: Arrived Start: 04-15-2025 COVID-19 Vaccine ( season) COVID-19 Vaccine ( season) [facility] Start: 03-20-2025 [facility] Start: 03-19-2025 Administration of prophylactic treatment [facility] Start: 03-18-2025 [facility] Start: 03-18-2025 Referral to infectious diseases physician [facility] Start: 03-18-2025 Referral to palliative care physician [facility] Start: 03-16-2025 Referral to nurse charge rn [facility] Start: 03-16-2025 Referral to soap press feeder [facility] Start: 03-15-2025 Hospital admission [facility] Start: 03-15-2025 Influenza vaccination Flu vaccine (#1) [facility] Start: 11-21-2024 End: 11-21-2024 Patient encounter procedure 11/21/2024 2:20 PM EDT Office Visit [facility] [address] [place] [address] Lora Power MD [address]az [address] [place] [address] [phone] [facility] Start: 11-01-2024 End: 11-01-2024 Patient encounter procedure 11/01/2024 2:00 PM EDT Procedure Visit [facility] [address] [place] [address] [facility] Start: 10-17-2024 End: 10-17-2024 Patient encounter procedure 10/17/2024 2:00 PM EST Procedure Visit [facility] [address] [place] [address] [facility] Start: 09-28-2024 End: 09-27-2025 EMG 2 Extremities [facility] Work Phone: Comment on above: Expected: 09/28/2024 (Approximate), Expi res: 09/27/2025 Start: 09-28-2024 End: 09-27-2025 MR Cervical spine WO and W contrast IV MR cervical spine w and wo contrast Imaging Routine Cervical myelopathy ([facility]) Expected: 09/28/2024 (Approximate), Expires: 09/27/2025 [facility] Comment on above: Expected: 09/28/2024 (Approximate), Expi res: 09/27/2025 Start: 09-28-2024 End: 09-27-2025 MR Lumbar spine WO and W contrast IV MR lumbar spine w and wo contrast Imaging Routine Lumbar radiculopathy Status post lumbar spinal fusion Expected: 09/28/2024 (Approximate), Expires: 09/27/2025 [facility] Comment on above: Expected: 09/28/2024 (Approximate), Expi res: 09/27/2025 Start: 09-13-2024 [facility] Start: 05-30-2024 End: 05-30-2024 Patient encounter procedure 05/30/2024 11:10 AM EDT Office Visit [facility] [place] [address], [address] [place] [address] Prem Ding MD [address] [place] [address] (Jxfw) Lumbar F/U, review MRI Lumbar at [facility] [place], [facility] Comment on above: Lumbar F/U, review MRI Lumbar at [facility] Start: 04-23-2024 End: 04-23-2024 Clinical Support 04/23/2024 3:30 PM EDT Clinical Support [facility] PT [address] [place] [address] Ciera Egan PTA [facility] PT Start: 04-15-2024 COVID-19 Vaccine ( season) COVID-19 Vaccine () [facility] Start: 04-10-2024 End: 04-10-2024 Clinical Support 04/10/2024 3:00 PM EDT Clinical Support [facility] PT [address] [place] [address] Ciera Egan PTA [facility] PT Start: 04-09-2024 End: 04-09-2024 Clinical Support 04/09/2024 3:00 PM EDT Clinical Support [facility] PT [address] [place] [address] Ciera Egan PTA [facility] PT Start: 04-04-2024 End: 04-04-2024 Clinical Support 04/04/2024 3:00 PM EDT Clinical Support [facility] PT [address] [place] [address] Ciera Egan PTA [facility] PT Start: 04-02-2024 End: 04-02-2024 Clinical Support 04/02/2024 3:00 PM EDT Clinical Support [facility] PT [address] [place] [address] Ciera Egan PTA Arrived [facility] PT Comment on above: Arrived Start: 03-15-2024 Influenza vaccination Flu vaccine (#1) [facility] Start: 12-03-2023 DIABETES SCREEN DIABETES SCREEN [facility] [facility] Start: 11-07-2023 End: 11-07-2023 Patient encounter procedure 11/07/2023 11:40 AM EDT Office Visit [facility], [facility] Neurosurgery [address], [address] [place] [address] Prem Ding MD [address] [place] [address] 4 week 1st post op-Removal of Previous Hardware w/Redo Lami and Extension of Fusion to L2-3 [facility], [facility] Neurosurgery Comment on above: 4 week 1st post op-Removal of Previous H ardware w/Redo Lami and Extension of Fusion to L2-3 Start: 09-26-2023 Bacteria identified in Blood by Culture [facility] Start: 09-26-2023 Urine culture Urine Culture [facility] Start: 08-04-2023 Screening for malignant neoplasm of lung Lung Cancer Screening &/or Counseling [facility] Start: 2023 Screening for malignant neoplasm of breast Breast cancer screen [facility] Start: 2023 Shingles vaccine (1 of 2) Shingles vaccine (1 of 2) [facility] Start: 04-15-2023 Influenza vaccination INFLUENZA (Season Ended) [facility] Start: 03-15-2023 Influenza vaccination Flu vaccine (#1) [facility] Start: 10-15-2022 End: 09-17-2023 Hemoglobin A1c in Blood HGB A1C Lab Routine Personal history of other endocrine, nutritional and metabolic disease Expected: 10/15/2022 (Approximate), Expires: 09/17/2023 [facility] Work Phone: Comment on above: Expected: 10/15/2022 (Approximate), Expi res: 09/17/2023 Start: 10-15-2022 End: 09-17-2023 NICOTINE/COTININE NICOTINE/COTININE Lab Routine Current smoker Expected: 10/15/2022 (Approximate), Expires: 09/17/2023 [facility] Work Phone: Comment on above: Expected: 10/15/2022 (Approximate), Expi res: 09/17/2023 Start: 09-18-2022 End: 09-17-2023 CBC W Auto Differential panel - Blood CBC + DIFF Lab Routine Anemia, unspecified type Expected: 09/18/2022 (Approximate), Expires: 09/17/2023 [facility] Work Phone: Comment on above: Expected: 09/18/2022 (Approximate), Expi res: 09/17/2023 Start: 09-18-2022 End: 09-17-2023 Ferritin [Mass/volume] in Serum or Plasma FERRITIN BLD Lab Routine Anemia, unspecified type Expected: 09/18/2022 (Approximate), Expires: 09/17/2023 [facility] Work Phone: Comment on above: Expected: 09/18/2022 (Approximate), Expi res: 09/17/2023 Start: 09-18-2022 End: 09-17-2023 Iron and Iron binding capacity panel - Serum or Plasma IRON + TIBC Lab Routine Anemia, unspecified type Expected: 09/18/2022 (Approximate), Expires: 09/17/2023 [facility] Work Phone: Comment on above: Expected: 09/18/2022 (Approximate), Expi res: 09/17/2023 Start: 09-16-2022 End: 09-16-2022 [facility] Start: 04-15-2022 Influenza vaccination [facility] Start: 12-31-2021 Creatinine measurement Creatinine monitoring [employer] Phone: Start: 12-31-2021 Potassium monitoring Potassium monitoring [employer] Phone: Start: 11-13-2021 COLORECTAL CANCER SCREENING COLORECTAL CANCER SCREENING [facility] Start: 11-13-2021 FECAL OCCULT BLOOD FECAL OCCULT BLOOD [facility] Start: 10-27-2021 Creatinine measurement Creatinine monitoring [employer] Phone: Start: 10-27-2021 Potassium monitoring Potassium monitoring [employer] Phone: Start: 04-15-2021 Influenza vaccination Flu vaccine (Season Ended) [employer] Phone: Start: 01-16-2021 End: 01-16-2021 Patient encounter procedure 01/16/2021 Office Visit Neurosurgery Bib Alvarez MD [address] [place] [address] [employer] [facility]surgery Start: 11-14-2020 End: 11-14-2020 Office Visit 11/14/2020 Office Visit Neurosurgery Bib Alvarez MD [address], [address] [place] [address] [employer] Start: 04-15-2020 Influenza vaccination Flu vaccine (#1) [employer] Phone: Start: 2018 COLOGUARD (FIT-DNA) COLOGUARD (FIT-DNA) [facility] Start: 2018 Colonoscopy COLONOSCOPY [facility] Start: [address] COLONOGRAPHY [facility] Start: 2018 LIPID SCREEN LIPID SCREEN [facility] Start: 2018 Screening for malignant neoplasm of colon [facility] [employer] Start: 2018 SIGMOIDOSCOPY SIGMOIDOSCOPY [facility] Start: 2013 Lipid panel [facility] [employer] Start: 2013 Mammography MAMMOGRAM [facility] Start: 2013 Screening for malignant neoplasm of breast Breast cancer screen [facility] [employer] Start: 2003 HPV TESTING HPV TESTING [facility] Start: 2003 Zoledronic acid therapy ALPHA-1 ANTITRYPSIN DEFICIENCY SCREENING [facility] Start: 1994 PAP TESTING PAP TESTING [facility] Start: 1992 DTaP/Tdap/Td vaccine (1 - Tdap) DTaP/Tdap/Td vaccine (1 - Tdap) [employer] Phone: Start: 1992 Hepatitis B vaccine (1 of 3 - 19+ 3-dose series) Hepatitis B vaccine (1 of 3 - 19+ 3-dose series) [facility] Start: 1992 Pneumococcal 50+ years Vaccine (1 of 2 - PCV) Pneumococcal 50+ years Vaccine (1 of 2 - PCV) [facility] Start: 1992 Urine microalbumin profile DTAP,TDAP,TD (1 - Tdap) [facility] Start: 1991 ANNUAL PCP TEAM CHRONIC DISEASE VISIT ANNUAL PCP TEAM CHRONIC DISEASE VISIT [facility] Start: 1991 HEPATITIS C SCREENING HEPATITIS C SCREENING [facility] Start: 1991 Hepatitis C screening Hepatitis C screen [facility] Start: 1991 HIV SCREENING HIV SCREENING [facility] Start: 1991 SPIROMETRY SPIROMETRY [facility] Start: 1988 HIV screening HIV screen [facility] Start: 1985 COVID-19 Vaccine (1) COVID-19 Vaccine (1) [facility] [employer] Phone: Start: 1985 Depression Monitoring Depression Monitoring [facility] Start: 1979 PNEUMOCOCCAL (1 - PCV) PNEUMOCOCCAL (1 - PCV) [facility] Start: 1979 Pneumococcal 0-64 years Vaccine (1 - PCV) Pneumococcal 0-64 years Vaccine (1 - PCV) [facility] Start: 1979 Pneumococcal 0-64 years Vaccine (1 of 1 - PPSV23) Pneumococcal 0-64 years Vaccine (1 of 1 - PPSV23) [employer] Phone: Start: 1979 Pneumococcal 0-64 years Vaccine (1 of 2 - PCV) Pneumococcal 0-64 years Vaccine (1 of 2 - PCV) [facility] Start: 1979 Pneumococcal 0-64 years Vaccine (1 of 2 - PPSV23) Pneumococcal 0-64 years Vaccine (1 of 2 - PPSV23) [employer] Phone: Start: 1978 COVID-19 VACCINE (#1) COVID-19 VACCINE (#1) [facility] Start: 01-24-1974 COVID-19 VACCINE (#1) COVID-19 VACCINE (#1) [facility] Start: 1973 HEPATITIS B (1 of 3 - 3-dose series) HEPATITIS B (1 of 3 - 3-dose series) [facility] Start: 1973 Hepatitis B vaccine (1 of 3 - 3-dose series) Hepatitis B vaccine (1 of 3 - 3-dose series) [employer] Start: 1973 Hepatitis C screening Hepatitis C screen [employer] Phone: Alanine aminotransfe rase [Enzymatic activity/volume] in Serum or Plasma by No addition of P-5'-P [facility] Albumin [Mass/volume ] in Serum or Plasma [facility] Albumin/Globulin ratio [facility] Albumin/Globulin ratio [facility] Alkaline phosphatase [Enzymatic activity/volume] in Serum or Plasma [facility] Anion gap measurement [facility] Anion gap measurement [facility] Aspartate aminotrans ferase [Enzymatic activity/volume] in Serum or Plasma [facility] Basophils [#/volume] in Blood by Automated count [facility] Basophils/100 leukoc ytes in Blood by Automated count [facility] Bilirubin.total [Mass/volume] in Serum or Plasma [facility] End: 10-11-2023 Blood glucose - POCT Blood glucose - POCT Point of Care Testing Routine One Time for 1 Occurrences starting 10/11/2023 until 10/11/2023 [facility] [employer] Phone: Comment on above: One Time for 1 Occurrences starting 09/16 until 10/11/2023 C reactive protein [Mass/volume] in Serum or Plasma [facility] Calcium [Mass/volume ] in Serum or Plasma [facility] Carbon dioxide, tota l [Moles/volume] in Serum or Plasma [facility] Chloride [Moles/volu me] in Serum or Plasma [facility] Continuous pulse oximetry Pulse oximetry, continuous Respiratory Care Routine Every 4hr until discontinued starting 12/30/2020 [employer] Phone: Comment on above: Every 4hr until discontinued starting Creatinine and Glome rular filtration rate.predicted panel - Serum, Plasma or Blood [facility] Eosinophils/100 leuk ocytes in Blood by Automated count [facility] Erythrocyte distribu tion width [Ratio] by Automated count [facility] Erythrocyte sediment ation rate by Photometric method [facility] Erythrocytes [#/volu me] in Blood [facility] Gliadin peptide+tiss ue transglutaminase IgA+IgG Ab [Presence] in Serum by Immunoassay [facility] Globulin [Mass/volum e] in Serum [facility] Globulin [Mass/volum e] in Serum [facility] Glucose [Mass/volume ] in Serum or Plasma [facility] End: 10-11-2023 Guidance-- during surgery [employer] [employer] Work Phone: Comment on above: Once for 1 Occurrences starting 10/11/19 until 10/11/2023 Hematocrit [Volume Fraction] of Blood [facility] Hemoglobin [Mass/vol ume] in Blood [facility] Initiate RT Inhaler-Nebulizer Bronchodilator Protocol Initiate RT Inhaler-Nebulizer Bronchodilator Protocol Respiratory Care Routine Daily until discontinued starting 10/11/2023 [employer] Comment on above: Daily until discontinued starting 2023 Leukocytes [#/volume ] corrected for nucleated erythrocytes in Blood by Automated coun [facility] Leukocytes [#/volume ] in Blood [facility] Lymphocytes [#/volum e] in Blood by Automated count [facility] Lymphocytes/100 leuk ocytes in Blood by Automated count [facility] MCH [Entitic mass] b y Automated count [facility] MCHC [Mass/volume] b y Automated count [facility] MCV [Entitic volume] by Automated count [facility] MDI treatment MDI treatment Respiratory Care Routine 4x Daily PRN until discontinued starting 10/11/2023 [employer] Comment on above: 4x Daily PRN until discontinued starting 10/11/2023 Measurement of renal function [facility] Monocytes [#/volume] in Blood by Automated count [facility] Monocytes/100 leukoc ytes in Blood by Automated count [facility] End: 10-13-2023 Mri spinal canal cervical w/o contrast matrl MRI CERVICAL SPINE WO IVCON Radiology Routine Spinal stenosis of cervical region 1 Occurrences starting 09/13/2022 until 10/13/2023 [facility] Work Phone: Comment on above: 1 Occurrences starting 09/13/2022 until 10/13/2023 Neutrophils [#/volum e] in Blood by Automated count [facility] Neutrophils/100 leuk ocytes in Blood by Automated count [facility] Nucleated erythrocyt es [Presence] in Blood by Automated count [facility] Oxygen therapy [Mini mum Data Set] Initiate Oxygen Therapy Protocol Respiratory Care Routine Daily until discontinued starting 12/30/2020 [employer] Work Phone: Comment on above: Daily until discontinued starting 2020 Oxygen therapy [Mini mum Data Set] Initiate Oxygen Therapy Protocol Respiratory Care Routine As Needed until discontinued starting 10/11/2023 [employer] Comment on above: As Needed until discontinued starting Patient Education [facility] Work Phone: Patient referral [facility] Work Phone: Platelet mean volume [Entitic volume] in Blood by Automated count [facility] Platelets [#/volume] in Blood [facility] Potassium [Moles/vol ume] in Serum or Plasma [facility] End: 10-11-2023 , urine POCT , urine POCT Point of Care Testing Routine One Time for 1 Occurrences starting 10/11/2023 until 10/11/2023 [employer] Comment on above: One Time for 1 Occurrences starting 09/16 until 10/11/2023 Protein [Mass/volume ] in Serum or Plasma [facility] Sodium [Moles/volume ] in Serum or Plasma [facility] Spirometry panel Incentive alyce metry Respiratory Care Routine Every 2hr while awake until discontinued starting 12/30/2020 [employer] Work Phone: Comment on above: Every 2hr while awake until discontinued starting 12/30/2020 Spirometry panel Incentive alyce metry Respiratory Care Routine Every 2hr while awake until discontinued starting 10/11/2023 [employer] Comment on above: Every 2hr while awake until discontinued starting 10/11/2023 Surgical Pathology Surgical Path ology Lab Routine Release Upon Ordering for 1 Occurrences starting 12/30/2020 [employer] Phone: Comment on above: Release Upon Ordering for 1 Occurrences starting 12/30/2020 Urea nitrogen [Mass/ volume] in Serum or Plasma [facility] End: 10-27-2020 XR SPINE ENTIRE (2-3 VWS) XR SPINE ENTIRE (2-3 VWS) Imaging Routine Pre-op examination 1 Occurrences starting 10/27/2020 until 10/27/2020 [employer] Phone: Comment on above: 1 Occurrences starting 10/27/2020 until 10/27/2020 XR SPINE ENTIRE (2-3 VWS) XR SPI NE ENTIRE (2-3 VWS) Imaging Routine Pre-op examination 10/27/2020 11:32 AM EDT [employer] Phone: [facility] Payers Date Payer Category Payer Self-pay [id number] 2016 Medicaid [facility] [id number] 2016-Present [phone] [address] [place] [address] Medicaid [id number] 2016 Medicaid [id number] 2016 Private Health Insurance [facility] MEDICAID [id number] 1973 Unknown [id number] 2.16.840.1.371772.3.579.2. 182 1973 Unknown [id number] 2.16.840.1.290633.3.579.2. 182 1973 Unknown [id number] 2.16.840.1.629360.3.579.2. 182 1973 Unknown [id number] 2.16.840.1.673664.3.579.2. 593 1973 Unknown [id number] 2.16.840.1.499494.3.579.2. 593 1973 Unknown [id number] 2.16.840.1.131806.3.579.2. 593 1973 Unknown [id number] 2.16.840.1.071718.3.579.2. 718 1973 Unknown [id number] 2.16.840.1.468005.3.579.2. 718 1973 Unknown [id number] 2.16.840.1.675195.3.579.2. 727 1973 Unknown [id number] 2.16.840.1.707679.3.579.2. 177 1973 Unknown [id number] 2.16.840.1.115600.3.579.2. 177 1973 Unknown [id number] 2.16.840.1.267361.3.579.2. 177 1973 Unknown [id number] 2.16.840.1.025966.3.579.2. 1259 1973 Unknown [id number] 2.16.840.1.876908.3.579.2. 1259 1973 Unknown [id number] 2.16.840.1.137353.3.579.2. 9 1973 Unknown [id number] 2.16.840.1.120794.3.579.2. 1258 1973 Unknown [id number] 2.16.840.1.652704.3.579.2. 1258 1973 Unknown [id number] 2.16.840.1.560501.3.579.2. 1258 1973 Unknown [id number] 2.16.840.1.185895.3.579.2. 1258 1973 Unknown [id number] 2.16.840.1.178615.3.579.2. 1258 1973 Unknown [id number] 2.16.840.1.373778.3.579.2. 1258 1973 Unknown [id number] 2.16840.1.069563.3.579.2. 1258 1973 Unknown [id number] 2.16.840.1.460621.3.579.2. 1258 1973 Unknown [id number] 2.16.840.1.050378.3.579.2. 1258 1973 Unknown [id number] 2.16.840.1.582921.3.579.2. 175 1973 Unknown [id number] 2.16840.1.429812.3.579.2. 175 1959 Medicaid [id number] 1959 Unknown [id number] 1.2.840.900382.1.13.239.2. 7.3.545014.315 Unknown [id number] 2.16.840.1.793904.3.579.2. 531 Unknown [id number] 2.16.840.1.170259.3.579.2. 531 Unknown [id number] 2.16.840.1.663268.3.579.2. 531 Social History Date Type Detail Facility Start: 08-15-1985 End: 01-14-2025 Tobacco smoking status NHIS Current every day smoker [facility] Start: 10-27-2020 End: 01-14-2025 Tobacco use and exposure Current user [employer] Phone: Start: 10-27-2020 End: 01-14-2025 Alcohol intake Current drinker of alcohol (finding) [employer] Phone: Start: 10-27-2020 History SDOH Financial 5 [employer] Phone: Start: 10-27-2020 History SDOH Food Worry 1 [employer] Phone: Start: 10-27-2020 History SDOH Transport Med 2 [employer] Phone: Start: 1975 Sex Assigned At Not on file [employer] Phone: Exposure to SARS-CoV-2 (event) Not sure [employer] Phone: Start: 08-15-1985 History of tobacco use Cigarette Smoker [facility] Start: 06-30-2017 End: 10-11-2023 Cigarettes smoked current (pack per day) - Reported 2 [employer] Start: 06-30-2017 End: 05-22-2024 Tobacco use and exposure Smokeless tobacco non-user [facility] Start: 06-30-2017 History SDOH Alcohol Comment social [facility] Start: 10-27-2020 End: 10-11-2023 Sex Assigned At [facility] Start: 1975 Sex Assigned At Female F [facility] Start: 09-16-2022 End: 09-13-2024 Tobacco smoking status MNIS Smoker (finding) [facility] Tobacco Cigarettes, 2 per day. [facility] Tobacco smoking status No Smoking Status Entered [facility] Has the electric, gas, oil, or water company threatened to shut off services in your home in past 12Mo No BON [employer] How often to you hav e a drink containing alcohol? 2-4 times a month [employer] How many standard drinks containing alcohol do you have on a typical day? 1 or 2 [employer] How often do you hav e 6 or more drinks on 1 occasion? Never [employer] How hard is it for you to pay for the very basics like food, housing, medical care, and heating Not hard at all [employer] (I/We) worried whether (my/our) food would run out before (I/we) got money to buy more. Never true [employer] Start: 07-18-2023 Alcohol Comment occas [employer] Tobacco smoking status NHIS Tobacco smoking consumption unknown [facility] Start: 09-24-2012 End: 09-13-2024 Sex Female (finding) [facility] NEGATED: Highlighted row [facility] Medical Equipment Procedure Code Equipment Code Equipment Origin al Text Equipment Identifier Dates Graft Bne Sub 15 ml 1.7-10mm Canc Chip Morselized Frz Dry - [id number] Start: 12-30-2020 Graft Bne Sub 15 ml 1.7-10mm Canc Chip Morselized Frz Dry - [id number] Start: 12-30-2020 Kit Bne Grft Sm Rhbmp-2 4.2mg Inj 5ml Contain Ndl [id number] Start: 12-30-2020 Spacer Spnl [id number] 4deg L Peek Post Lum Intbdy Fus [...] Std For Thorlum Sacroiliac Fix Sys - [id number] Start: 10-11-2023 Jennifer Spnl Crv 5.5 x75 Mm Prebent Ti Vitality - [id number] Start: 10-11-2023 Jennifer Spnl Crv 5.5 x85 Mm Prebent Ti Vitality - [id number] Start: 10-11-2023 Screw Spnl L55mm Dia6.5mm Polyax Thorlum Sacroiliac Vitality - [id number] Start: 10-11-2023 Graft Bne Sub 15 gm Grn Ca Compnd Ptty And Silicate Base Inj - [id number] Start: 10-11-2023 Goals Date Patient Goal Desired Activity /State Functional Status Date Assessment Result Facility 04-12-2023 Functional Status N/A [facility] Clinical Notes 12-30-2020 to 05-22-2025 Discharge InstructionsAttachmentsMuJesi snow RN - 05/22/2025 2:00 PM EDTerra Plata RN - 05/22/2025 2:00 PM EDTBandrew Power MD - 04/25/2025 10:00 AM EDT Note Date & Type Note Facility 05-22-2025 Hospital Discharge instructions Terra Medrano RN - 05/22/2025 3:00 PM EDT You may have a normal diet but should eat lightly day of surgery. Drink plenty of fluids. Urinate within 8 hours after surgery, if unable to urinate call your doctor. The following attachments cannot be sent through Care Everywhere.Myelogram (Ivorian)documented in this encounter [facility] 05-22-2025 History of Present illness Narrative Pt arrives to room for cervical myelogram PA to bedside Dr Yanes to room CM RT to bedside Placed prone on table Site prepped and draped Access obtained and 10mls of isovue m 300 contrast injected Access removed and site covered with band aid Additional imaging obtained To CT Per Valeri in IR, pt ok for d/c ( re: BP). Pt BP baseline high on arrival. documented in this encounter [facility] 04-25-2025 History of Present illness Narrative Images from [...] She has an upcoming appointment with a finish painter on 06/03/2025 to discuss potential treatments for [...] Additionally, she has an appointment with a nurse charge rn for a scope on 05/07/2025. 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 A prescription was sent to [facility]. She has an appointment with a finish painter on 06/03/2025 to discuss further options, including a spinal cord stimulator or pain pump. This clinical note was created utilizing [employer] documentation system. All information has been thoroughly reviewed, corrected as necessary, and authenticated by the provider to ensure accuracy and completeness. On occasion, [employer] documentation system erroneously drops words or replaces a spoken word with a similar sounding word. Please notify with any questions or concerns regarding this clinical note. documented in this encounter [facility] 03-16-2025 Evaluation note Diagnosis Onset Date Resolution Bacteremia acute March 15 10:51pm Diarrhea acute March 15 10:51pm Leukopenia acute March 15 10:51pm Metabolic acidosis, NAG, bicarbonate losses acute March 152024 10:51pm Opioid use disorder acute 2024 10:51pm Pneumonia acute March 15 10:51pm Rectal bleeding acute March 10:51pm Sepsis acute March 15 10:51pm [facility] Work Phone: 1(635) 683-675008-02-2025 Evaluation note* Diagnosis Onset Date Resolution Status Admit Date Bacteremia acute March 15 10:51pm Diarrhea acute March 15 10:51pm Opioid use disorder acute 2024 10:51pm Pneumonia acute March 15 10:51pm Leukopenia resolved March 15 10:51pm Metabolic acidosis, NAG, bicarbonate losses resolved March 15 025 10:51pm Rectal bleeding resolved March 10:51pm Sepsis resolved March 15 10:51pm Abdominal pain acute April 16, 2025 12:55pm Black stools acute April 12:55pm Blood in stool acute April 16, 2025 12:55pm Diarrhea acute April 16, 2025 12:55pm Nausea acute April 16, 2025 12:55pm Weight loss acute April 12:55pm [facility] Work Phone: 1(702) 995-255005-13-2025 Telephone encounter Note* Telephone Encounter - Kylie Mar EEGGregg Jacob - 12/25/2024 3:01 PM EDT Pt has MRI on Tuesday and needs something called in so she can lay through it. [facility] Work Phone: 1(434) 963-485805-13-2025 Miscellaneous Notes* Telephone Encounter - Kylie Mar - 12/25/2024 3:01 PM EDT Pt has MRI on Tuesday and needs something called in so she can lay through it. documented in this encounterWilliam Ville [id number] History of Present illness Narrative* Lora Power [...] to the ER and then was [facility] then states it was not [...] Received from [facility] PHQ-2 PHQ-2 score: 4 REVIEW OF [...] reflexes: Sandro's absent. Ankle clonus absent. Coordination Zacfza-ea-osge, rapid alternating movements and aczl-qp-cegc normal bilaterally without dysmetria. Gait Normal casual, [...] Status post lumbar spinal fusion EMG 2 Qzhfddggxvp-ZHA-U will order an electromyograph evaluation of the lower extremities to assessfor nerve damage such as lumbar radiculopathy, lumbar plexopathy, or peripheral neuropathy I will obtain an MRI of the lumbar spine to assess for a structural lesion including degenerative lumbar spine disease which may be contributing to the patient's symptoms. MR lumbar spine w and wo contrast; [facility] PHN (postherpetic neuralgia) ([facility]) Start lidocaine (Lidoderm) 5 % patch; Apply 2 patches over 12 hours topically Daily Remove & discard patch within 12 hours or as directed by . Cervical myelopathy ([facility]) EMG 2 Yobgomdnhfr-GZF-E will order an electromyograph evaluation of the upper extremities to assessfor nerve damage such as cervical radiculopathy, brachial plexopathy, or entrapment mononeuropathy I will order MR cervical spine w and wo contrast; [facility] Total time 30 [...] by Lora Power MD documented in this encounterHannibal Regional [id number] History of Present illness Narrative* Rio Ramirez [...] left side, initial encounter Consulted with Dr. Paet and he did review the rib x [...] CT scanning is available. documented in this encounterHannibal Regional HospitalIqiznakxia96-08-1167 History of Present illness Narrative* Mady Clay PA - 10/12/2023 7:09 AM EST 10/12/2023 7:09 AM Macie Thacker Pedro Luis 1975 [id number] SUBJECTIVE: Uneventful PM per nursing, pt doing [...] home pharm 10/10/[address] Discharge instructions* Discharge Instructions* Mady [...] support you. If you have questions, call [phone] Tuesday through Tuesday from 7:30AM to 8:30PM to speak to a nurse. If you need to speak to someone outside of these hours, call your physician. Incision Do s and Don ts Do wash hands before and after dressing changes or when you have had any contact with your incision. Use hand welding machine operator gas metal arc or antibacterial soap. Do keep your incision [...] through Care Everywhere. * Lumbar Laminectomy: Post-op (Ivorian) * Constipation (Ivorian) * DVT (Deep Vein Thrombosis): General Info (Ivorian) * COPD: Exacerbation (Ivorian) * Smoking Cessation: Health Benefits: General Info (Ivorian) * acetaminophen and oxycodone (Ivorian) * tizanidine (Ivorian) documented in this encounterB[facility] Evaluation + Plan noteExtracted from: Title:NPV Author:Star Sherman MD Date :04/12/23 [...] depression as well as having quit smoking. [facility]2023 Evaluation note* Encounter Date Diagnosis Assessment Notes Treatment Notes Treatment Clinical Notes Feb, Post laminectomy syndrome (ICD-10 - M96.1) [facility] Other 06-29-2023 NoteHNO ID: [id number] Author: Darlyn Kaufman RN Service: ? Author Type: Registered Nurse Type: Progress Notes Filed: 02/10/2023 9:31 AM Note Text: Patient referred to Blood Management for anemia evaluation/pre-surgical optimization. Current and complete lab data unavailable. Unable to complete evaluation.[facility]06-29-2023 History of Present illness Narrative* Darlyn Kaufman RN - 02/10/2023 9:31 AM EDT Patient referred to Blood Management for anemia evaluation/pre-surgical optimization. Current and complete lab data unavailable. Unable to complete evaluation. documented in this [facility]Prem[facility]-2023 NoteHNO ID: [id number] Author: Too Hughes MD Service: ? Author [...] visit. Either the patient or their legal public health representative has been informed of the risks and benefits of -- and alternatives to -- treatment through a remote evaluation and consents to proceed with the evaluation remotely.[facility]04-08-2023 History of Present illness Narrative* Too Hughes [...] visit. Either the patient or their legal public health representative has been informed of the risks and benefits of -- and alternatives to -- treatment through a remote evaluation andconsents to proceed with the evaluation remotely. documented in this encounterPrem[facility]02-23-2023 NoteEducation Materials Orthopedics Chronic Back Pain [...] them backward. ? Do not sit or retail link analyst one place for long periods of time. [...] prescription pain medicine, or muscle relaxants. Take ycnj-xwj-uynqxjh and prescription medicines only as told by your health care provider. ? Ask your health care provider if the medicine prescribed to you: ? Requires you to avoid driving or using machinery. ? Can cause constipation. You may need to take these actions to prevent or treat constipation: ? Drink enough fluid to keep your urine pale yellow. ? Take qozf-avq-hbstais or prescription medicines. ? Eat foods that [...] to replace advice given (more content not included)...[facility] [id number] Miscellaneous Notes* Telephone Encounter - Karen Watkins RN - 10/07/2022 8:48 AM EST Neuro SPINE CARE COORDINATION SURGERY SCHEDULING Pt scheduled for 12/30/2022. This date is now an OR at [facility], not [facility]. Due to this, pt will [...] Dr Hughes at 240pm S70 [place] (Andrews's Office Date): anytime Pre op Education: 02/08/2023 inperson at 3pm with Nigel Watkins RN Post op appts: 2 Week VV Post-op with Caroline Malone NP 6-8 week post op appointment with Saul on 04/19/23 at 1120pm. Please schedule XRAY prior to visit. Case message sent to surgery schedulers. Karen Watkins RN documented in this encounterPrem[facility] Health [facility]02-03-2023 Miscellaneous Notes* Telephone Encounter - Karen Watkins RN - 09/17/2022 12:35 PM EST Neuro SPINE CARE COORDINATION SURGERY SCHEDULING Per Dr Hughes OK to schedule pt for surgery. Patient accepts surgery date of 12/30/[address] Too Hughes at [facility]. Planned procedure: Revision L3-S1 and ext to L2 lumbar fusion. Length of Surgery:5 hrws Expected Length of Hospital Stay:3-4 Patient's Home Address: [address] [place] [id number] Medications reviewed : Yes. Meds to be [...] , and nicotine. Education Sent Via Mail/ MiniTimet: Ling[employer] PACC Questionnaire Completed: Yes Qualify TREK for Surgical Success?: Yes Patient placed on cancellation list: No Pre op appts: Green [place]: anytime PACC: [facility] 12/07/22 IC: 12/07/22 at 1140 am [...] documented in this encounterPremier Health [facility]02-02-2023 Procedure [facility]01-30-2023 NoteHNO ID: [id number] Author: RT Vicente(Franck) Service: Radiology Author Type: Technologist Type: Progress [...] IV DATA: Not applicable SIGNED BY: RT Vicetne(R) September 13, 2022 3:36 [facility]01-30-2023 History of Present illness Narrative* RT [...] documented in this encounterPremier Health Miami [facility] Hospital01-30-2023 NoteHNO ID: [id number] Author: Too Hughes MD Service: ? Author Type: Physician Type: Progress Notes Filed: 09/13/2022 2:50 PM Note Text: SPINE SURGERY OUTPATIENT CONSULT This is an in-person visit. SERVICE DATE: 09/13/2022 PCP: Cristiano Graham Sr, MD REFERRING PROVIDER: Lei Martinez [address] [facility] [address] Consult requested for an opinion regarding the [...] PROBLEM LIST Copd (Chronic Obstructive Pulmonary Disease) ([facility]) Current Smoker Neck Pain S/P Cervical Spinal Fusion Anxiety and Depression Iron Deficiency Anemia B12 Deficiency PAST MEDICAL HISTORY Diagnosis Date Anemia 10/[address] Cristiano Graham Anxiety and depression COPD (chronic obstructive pulmonary disease) ([facility]) Current smoker Neck pain S/P cervical spinal [...] Modified ROBERT Score 11 (more content not included)...[facility]01-30-2023 History of Present illness Narrative* Too Hughes MD - 09/13/2022 1:21 PM EST Images from the original note were not included. SPINE SURGERY OUTPATIENT CONSULT This is an in-person visit. SERVICE DATE: 09/13/2022 PCP: Cristiano Graham Sr, MD REFERRING PROVIDER: Lei Martinez [address] [facility] [address] Consult requested for an opinion regarding the [...] PROBLEM LIST Copd (Chronic Obstructive Pulmonary Disease) ([facility]) Current Smoker Neck Pain S/P Cervical Spinal Fusion Anxiety and Depression Iron Deficiency Anemia B12 Deficiency PAST MEDICAL HISTORY Diagnosis Date Anemia 10/[address] Cristiano Graham Anxiety and depression COPD (chronic obstructive pulmonary disease) ([facility]) Current smoker Neck pain S/P cervical spinal [...] with more than 50% of the total idat-yh-rfdx time of the visit in counseling / coordination of care. SIGNATURE: Too Hughes MD PATIENT NAME: Macie Cloud DATE: September 13, 2022 TIME: 1:22 PM PAGER: documented in this encounterPremier Health Miami Valley Hospital12-21-2022 Miscellaneous Notes* Telephone Encounter - Lei [...] documented in this encounterPremier Health Miami Valley Hospital12-19-2022 Miscellaneous Notes* Telephone Encounter - Doris Turner - 08/02/2022 9:57 AM EST Patient is calling in about info below * Telephone Encounter - Nicolasa Wolff Electrical Repairer - 07/30/2022 11:11 AM EST pt had 10:30 VV today with provider. Pt has trouble connecting. Pt requesting a phone call. Call back: [phone] documented in this encounterPremier Health Miami Valley Hospital12-14-2022 Miscellaneous Notes* Telephone Encounter - Ashly Menjivar RN - 07/28/2022 9:13 AM EST Neuro SPINE CARE COORDINATION QUICK NOTE Patient scheduled for virtual visit with CHIP Fine for 07/30/2022 at 10:30 am. Ashly Menjivar RN Instrument Sterilizer, Spine Health * Telephone Encounter - Doris Turner - 07/21/2022 2:06 PM EST Received the following record(s) via fax. -MRI L spine wo, Xray, MRI L spine wo/w(report and CD) Date 06/25/22 Record(s) scanned into pt's chart. Doris Turner documented in this encounterPremier Health [facility] Hospital12-08-2022 Miscellaneous Notes* Telephone Encounter - Adolph Blanco RN - 07/22/2022 11:12 AM EST Noted. Forwarded to HARRY via other Encounter. Adolph Blanco RN * Telephone Encounter - Doris Turner - 07/21/2022 9:32 AM EST Received the following record(s) via fax. -Electromyographic report Date 08/26/21 Record(s) scanned into pt's chart. Doris Turner documented in this encounterPremier Health [facility]05-20-2022 History of Present illness Narrative* Lei [...] documented in this encounterPremier Health [facility] Hospital04-14-2022 Evaluation note* Encounter Date Diagnosis Assessment [...] note writ ten by Yuri Prince MA, Carton Stenciler. Edited and approved by Dr. Vick Maxwell [...] negative findings were considered in medical decision-making. [facility] Other 04-06-2022 Evaluation note* Encounter Date Diagnosis [...] This further complicates the differential diagnostic picture. 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 04/29/2020 Other chronic pain 04/29/2020 Chest pain, unspecified 04/29/2020 Essential hypertension 04/25/2020 Current smoker 06/30/2017 COPD (chronic obstructive pulmonary disease) (HCC) 06/30/2017 Past Medical History: Diagnosis Date Anemia Anxiety Chronic back pain Chronic headaches COPD (chronic obstructive pulmonary disease) (HCC) Depression Emphysema (subcutaneous) (surgical) resulting from a procedure Emphysema of lung (HCC) Endometriosis Hypertension Restless leg syndrome Substance abuse ([facility]) Past Surgical History: Procedure Laterality Date ANKLE SURGERY Left APPENDECTOMY CERVICAL SPINE SURGERY 2019 SECTION ENDOMETRIAL ABLATION HYSTERECTOMY, VAGINAL LUMBAR FUSION N/A 12/30/2020 REMOVAL HARDWARE L4-5, L3-4 P.L.I.F (POSTERIOR LUMBAR INTERBODY FUSION), L3-4-5 PEDICLE SCREW POSTEROLATERAL FUSION performed by Bib Alvarez MD at [facility] [place] Chart Reviewed: Yes Patient [...] Independent (no AD) Transfer Assistance: Independent Active Machine Stapler: Yes OBJECTIVE: Vision: Impaired Vision Exceptions: Wears [...] place Goals: Patient goals : go home meterman goals senior care goal 1: Bed mobility with indep senior care goal 2: Functional transfers with indep senior care goal 3: Amb 75ft with 2ww and indep senior care goal 4: 2 steps with handrail and supervision [facility] (6 CLICK) BASIC MOBILITY AM-PAC Inpatient Mobility Raw Score : 18 Therapy [...] physical assistance to accomplish the task * Cj Anita M, OTR/L - 12/31/2020 10:50 AM EDT KYLE RASHEED OCCUPATIONAL THERAPY EVALUATION - ACUTE NAME: Macie Cloud : 1975 (45 y.o.) CODE STATUS: Full Code Room: [place] [address] Date of Service: 12/31/2020 Patient Diagnosis(es): Lumbar [...] smoker 06/30/2017 COPD (chronic obstructive pulmonary disease) ([facility]) 06/30/2017 Past Medical History: Diagnosis Date Anemia Anxiety Chronic back pain Chronic headaches COPD (chronic obstructive pulmonary disease) ([facility]) Depression Emphysema (subcutaneous) (surgical) resulting from a procedure Emphysema of lung ([facility]) Endometriosis Hypertension Restless leg syndrome Substance abuse ([facility]) Past Surgical History: Procedure Laterality Date ANKLE SURGERY Left APPENDECTOMY CERVICAL SPINE SURGERY 2019 SECTION ENDOMETRIAL ABLATION HYSTERECTOMY, VAGINAL LUMBAR FUSION N/A 12/30/2020 REMOVAL HARDWARE L4-5, L3-4 P.L.I.F (POSTERIOR LUMBAR INTERBODY FUSION), L3-4-5 PEDICLE SCREW POSTEROLATERAL FUSION performed by Bib Alvarez MD at [facility] [place] Restrictions Restrictions/Precautions: Fall Risk [...] Independent (no AD) Transfer Assistance: Independent Active Machine Stapler: Yes OBJECTIVE: Orientation Status: Orientation Overall Orientation [...] WFL Sensation Status: Sensation Overall Sensation Status: WF Vision and Hearing Status: Vision Vision: Impaired [...] pt reports higher toilet at home Therapy [place] for assistance levels Independent = Pt. is [...] with family support who [facility] with the above deficits which impact [...] How much help for eating meals?: None [facility] Inpatient Daily Activity Raw Score: 19 [facility] Inpatient ADL T-Scale Score : 40.22 ADL [...] Time In: 916 Time Out: 933 Minutes: Eval: 17 minutes Electronically signed by: Anita Corona, OTR/L, OTR/L 12/31/2020, 10:50 AM documented in this encounterMagruder Hospital Phone: 1(124) 641-722705-18-2021 NoteFLUORO FOR SURGICAL PROCEDURES : 12/30/2020 8:47 AM CLINICAL HISTORY: R52 Pain ICD10. Lumbar spine fusion. COMPARISON: None available. Intraoperative fluoroscopy was provided for Dr. Alvarez 's procedure.A total of 11.22 mGy of fluoroscopy was used, with 4 fluoroscopic stills saved. No diagnostic images were obtained. Please see Dr. Alvarez's surgical notes for complete details.[facility] Phone: 1(752) 455-237905-18-2021 NoteFLUORO FOR SURGICAL PROCEDURES : 12/30/2020 8:47 [...] spondylosis without myelopathy documented in this encounter [facility] Phone: evaluation note* Diagnosis Pain Generalized pain documented in this encounter [facility] Phone: evaluation note* Diagnosis Neck pain, chronic- Primary Cervicalgia Chronic bilateral low back pain with right-sided sciatica documented in this encounter [facility] HospitalEvalusaint francis healthcare noteNo assessment information availableSelect [facility] Work Phone: Evaluation noteNo InformationNort [facility] Other Evaluation note* Diagnosis Spinal stenosis of cervical region- Primary Spinal stenosis in cervical region Pseudarthrosis following spinal fusion Arthrodesis status Lumbar radiculopathy Thoracic or lumbosacral neuritis or radiculitis, unspecified 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 documented in this encounter [facility] HospitalEvalusaint francis healthcare note* Diagnosis Spinal stenosis of cervical region Spinal stenosis in cervical region documented in this encounter [facility]* Diagnosis Onset Date Resolution Status Diarrhea acute Dyspepsia acute Rectal bleeding acute [facility] Work Phone: Evaluation note* Diagnosis Current smoker- Primary Tobacco use disorder Anemia, unspecified type Personal history of other endocrine, nutritional and metabolic disease 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 Chronic pain syndrome Pseudarthrosis following spinal fusion Arthrodesis status documented in this encounter [facility] note* Diagnosis Current smoker- Primary Tobacco use disorder Lumbar radiculopathy Thoracic or lumbosacral neuritis or radiculitis, unspecified 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 Arthrodesis status documented in this encounter [facility] HospitalEvalusaint francis healthcare note* Diagnosis Cervical myelopathy (HCC)- Primary Cervical spondylosis with myelopathy Cervical radiculopathy Brachial neuritis or radiculitis nos Lumbar radiculopathy Thoracic or lumbosacral neuritis or radiculitis, unspecified 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Evalus[facility] note* Diagnosis Lumbar radiculopathy Thoracic or lumbosacral neuritis or radiculitis, unspecified documented in this encounter [facility]* Diagnosis Chronic cough- Primary Cough Rib pain on left side Inspiratory pain Closed fracture of multiple ribs of left side, initial encounter Chronic cough Cough Rib pain on left side Inspiratory pain documented in this encounter [facility] HealthcareEvaluation note* Diagnosis Lumbar radiculopathy- Primary Thoracic or lumbosacral neuritis or radiculitis, unspecified Status post lumbar spinal fusion Arthrodesis status documented in this encounter [facility] HealthcareEvaluation note* Diagnosis Lumbar radiculopathy- Primary Thoracic or lumbosacral neuritis or radiculitis, unspecified PHN (postherpetic neuralgia) ([facility]) Herpes zoster with other nervous system complications Status post lumbar spinal fusion Arthrodesis status Cervical myelopathy (CMS/HCC) Cervical spondylosis with myelopathy documented in this encounter [facility] HealthcareEvaluation note* Diagnosis Claustrophobia (CMS/HCC) Other isolated or specific phobias documented in this encounter [facility] HealthcareEvaluation note* Diagnosis Claustrophobia (CMS/HCC)- Primary Other isolated or specific phobias documented in this encounter [facility] HealthcareEvaluation note* Diagnosis Other nerve root and plexus disorders- Primary Status post lumbar spinal fusion Arthrodesis status Myalgia Unspecified myalgia and myositis documented in this encounter [facility] HealthcareEvaluation note* Diagnosis Cubital tunnel syndrome of both upper extremities Cervical radiculopathy Brachial neuritis or radiculitis nos Cervical spinal stenosis Spinal stenosis in cervical region documented in this encounter [facility]* Diagnosis Cubital tunnel syndrome of both upper extremities Cervical radiculopathy Brachial neuritis or radiculitis nos Cervical spinal stenosis Spinal stenosis in cervical region documented in this encounter [facility] general Narrative - Reported* Type Description Date [...] Surgical History Procedure:open reduction nasal bone fracture;Disease: 2002 Surgical History Procedure:septoplasty;Disease: 2002 Hospitalization History see above [facility] Other [facility] general Narrative - Reported* Type Description Date [...] History Procedure:septoplasty;Disease: 2001 Hospitalization History see above [facility] Other Hospital course Narrative No data available for this section [facility]* Instructions* Robin SiuALMA - REGISTERED PRIVATE DUTY NURSE - 01/01/2021 dication given may have significant [...] your physician 11) Call your doctor at [phone] for an appointment (or follow up as [...] call OFFICE. The 24- hour phone is [phone] 13) If you are unable to contact [...] through Care Everywhere. * Spine: Anatomy Sketch (Ivorian) * Lumbar Spinal Fusion: Post-op (Ivorian) * oxycodone (Ivorian) * fentanyl transdermal (device) (Ivorian) * docusate and senna (Ivorian) * cephalexin (Ivorian) documented in this [facility] Phone: Hospital Discharge instructions Additional Instructions DISCHARGE [...] if you have any problems. -Office number [phone] [facility] Work Phone: Hospital Discharge instructions No data available for this section [facility] CenterHospital Discharge instructionsAmbulatory Orders* DME Home Medical Equipment Time Frame: 1 Day, Location: Determined By Patient Additional Instructions Please see your PCP in 3-5days Please consider stopping smoking as this is affecting your lungs and general health Take your antibiotics for 2 weeks I know that you are working with your PCP to schedule an appointment with the GI doctor in [place]. I advise you to do that as soon as possible. Wear supplemental oxygen at 2L with rest & 2L with exertionSelect Medical [facility] Work Phone: Progress note No data available for this section [facility] CenterReason for referral (narrative)* Diagnostic Procedure Only (Routine) - Closed Specialty Diagnoses / Procedures Referred By Contac t Referred To Contact XR IMAGING Diagnoses Spinal stenosis of cervical region Procedures XR SCOLIOSIS PA STAND/LAT 2V RADEX ENTIR THRC LMBR CRV SAC SPI W/SKULL 2/3 Too Soto MD [address] [place] [address] Xr Imaging Referral ID Status Reason Start Date Expiration Date V isits Requested Visits Authorized [id number] Closed Auto-Generate d Referral 09/13/2022 10/13/2023 1 1 [facility] for visit NarrativePain Medicine Referral [facility] Other reason for visit Narrative* Imaging (Routine) - Closed Specialty Diagnoses / Procedures Referred By Jorgito t Referred To Contact Radiology Diagnoses Cubital tunnel syndrome of both upper extremities Cervical radiculopathy Cervical spinal stenosis Procedures CT CERVICAL SPINE W CONTRAST Prem Ding MD [address] [address] Phone: tel: fax: Referral ID Status Reason Start Date Expiration Date Visits Re quested Visits Authorized [id number] Closed 05/12/2025 05/07/2026 1 1 [facility] for visit Narrative* Imaging (Routine) - Closed Specialty Diagnoses / Procedures Referred By Jorgito valle Referred To Contact Radiology Diagnoses Cubital tunnel syndrome of both upper extremities Cervical radiculopathy Cervical spinal stenosis Procedures IR MYELOGRAM CERVICAL FL MYELOGRAM CERVICAL S&I Prem Ding MD [address] [address] Phone: tel: fax: Referral ID Status Reason Start Date Expiration Date Visits Re quested Visits Authorized [id number] Closed 05/07/2025 05/07/2026 1 1 [facility] Assessments Diagnosis Pre-op examination Preoperative examination, unspecified [...] For Surgical Procedures Bib Alvarez MD [address] [address] Reason lumbar pain radiatin g into right leg, cervical pain radiating into left arm hx of multiple cervical and lumbar surgeries Diagnosis 1 Other spondylosis wi th radiculopathy, lumbar region (M47.26) Diagnosis 2 Cervical spondylosis with radiculopathy (M47.22) Referral Organization [facility] Referring Provider First Name Vick Referring Provider Last Name Alissa Referring Provider Specialty Pain Medici ne Referred Organization [facility] Referred Address [address] [place], [place],[address] Referred Provider Specialty Neurosurgery Referral Priority Routine General Notes Yuri Prince 11/13 04:00:02 PM > please refer the patient to spine center for further treatment Specialty Diagnoses / Procedures Referred By Contac t Referred To Contact MR IMAGING Diagnoses Spinal stenosis of cervical region Procedures MRI CERVICAL SPINE WO IVCON MRI SPINAL CANAL CERVICAL W/O CONTRAST MATRL Too Hughes MD [address] [place] [address] Mr Imaging Referral ID Status Reason Start Date Expiration Date Visits Requested Visits Authorized [id number] Pending Review Auto-Generat ed Referral 09/13/2022 10/13/2023 1 1 Specialty Diagnoses / Procedures Referred By Alonac t Referred To Contact XR IMAGING Diagnoses Spinal stenosis of cervical region Procedures XR SCOLIOSIS PA STAND/LAT 2V RADEX ENTIR THRC LMBR CRV SAC SPI W/SKULL 2/3 VW Too Hughes MD [address] [place] [address] Xr Imaging Referral ID Status Reason Start Date Expiration Date V isits Requested Visits Authorized [id number] Closed Auto-Generate d Referral 09/13/2022 10/13/2023 1 1 Reason evaluate and treat f or consideration of Dorsal Column Stimulator Diagnosis 1 Spondylolisthesis of lumbar region (M43.16) Referral Organization [facility] Ne urosurgery Referring Provider First Name Sobeida Referring Provider Last Name Blades Referring Provider Specialty Neurologica l Surgery Referred Organization [facility] Referred Provider Luan Garcia Referred Address [address] [place] [phone] Referred Provider Specialty Pain Medicin e Referral Priority Routine Specialty Diagnoses / Procedures Referred By Jorgito t Referred To Contact Radiology Diagnoses Lumbar radiculopathy Procedures MRI LUMBAR SPINE WO CONTRAST Mady Clay PA [address] [place] [address] Referral ID Status Reason Start Date Expiration Date Visits Re quested Visits Authorized [id number] Closed 05/04/2024 07/03/2024 1 1 Chief Complaint [...] section and content) DATE CREATED AUTHOR 12/23/2020 [facility] DATE CREATED AUTHOR AUTHOR'S ORGANIZ ATION 06/16/2021 [facility] DATE CREATED AUTHOR AUTHOR'S ORGANIZ ATION 04/16/2022 [facility] dical Specialist DATE CREATED AUTHOR AUTHOR'S ORGANIZ ATION 10/02/2022 [facility] DATE CREATED AUTHOR AUTHOR'S ORGANIZ ATION 10/15/2022 [facility] DATE CREATED AUTHOR AUTHOR'S ORGANIZ ATION 02/11/2023 [facility] DATE CREATED AUTHOR AUTHOR'S ORGANIZ ATION 06/07/2023 [facility] DATE CREATED AUTHOR AUTHOR'S ORGANIZ ATION 09/30/2023 [facility] DATE CREATED AUTHOR AUTHOR'S ORGANIZ ATION 04/25/2025 [facility] DATE CREATED AUTHOR AUTHOR'S ORGANIZ ATION 05/22/2025 [facility]ists EPIC DATE CREATED AUTHOR AUTHOR'S ORGANIZ ATION 05/25/2025 [facility] Reason for Visit (unrecogniz ed section and content) Status Reason Specialty Diagnoses / Procedures Re ferred By Contact Referred To Contact Diagnoses Lumbar disc herniation PSEUDOARTHROSIS DISC HERNIATION, RADICULOPATHY, SPONDYLOSIS Procedures NV LUMB SP FUSN,POST INTERBDY,EA ADDNL NV ARTHDSIS POST/POSTEROLATRL/POSTINT ERBODY LUMBAR POSTERIOR SEGMENTAL INSTRUMENTATION 3-6 VRT SEG NV INSJ BIOMCHN DEV INTERVERTEBRAL DSC SPC W/ARTHRD AUTOGRAFT SPINE SURGERY LOCAL FROM SAME INCISION NV ALLOGRAFT FOR SPINE SURGERY ONLY STRUCTURAL L3-4 P.L.I.F (POSTERIOR LUMBAR INTERBODY FUSION) L4-5 PEDICLE SCREW/ POSTEROLATERAL FUSION/ 2.5 HRS/ 1 C-ARM/ NERIS TABLE/ S.S.E.P/ CELL SAVERS/ NUVASIVE, PAT AT [place], 1ST CASE Bib Alvarez MD [address] [address] [facility] Reason Comments New Patient cervical and [...] SAC SPI W/SKULL 2/3 Too Hughes MD [address] [place] [address] Xr Imaging Referral ID Status Reason Start Date Expiration Date V isits Requested Visits Authorized [id number] Closed Auto-Generate d Referral 09/13/2022 10/13/2023 1 1 Reason Comments Schedule Surgery Care Coordination Reason Comments Surgery recsheduling Care Coordination Reason Comments Established Patient Reason Comments Blood Management Specialty Diagnoses / Procedures Referred By Contac t Referred To Contact Diagnoses Spinal stenosis of lumbar region, unspecified whether neurogenic claudication present Spinal stenosis of lumbar region, unspecified whether neurogenic claudication present [M48.061] Procedures NV REMOVAL POSTERIOR SEGMENTAL INSTRUMENTATION NV ARTHRODESIS COMBINED TQ 1NTRSPC LUMBAR NV POSTERIOR NON-SEGMENTAL INSTRUMENTATION NV AUTOGRAFT SPINE SURGERY LOCAL FROM SAME INCISION NV ALLOGRAFT FOR SPINE SURGERY ONLY MORSELIZED NV GIBBONS FACETEC/FORAMOT DRG ARTHRD LUMBAR 1 VRT SGM REMOVAL OF HARDWARE WITH RE-DO L2-3 LAMINECTOMY AND EXTENSTION OF FUSION Prem Ding MD [address] [place] [address] [facility] [address] [place] [address] Referral ID Status Reason Start Date Expiration Date Visits Re quested Visits Authorized [id number] 1 1 Specialty Diagnoses / Procedures Referred By Contac t Referred To Contact Radiology Diagnoses Lumbar radiculopathy Procedures MRI LUMBAR SPINE WO CONTRAST Mady Clay PA [address] [place] [address] Referral ID Status Reason Start Date Expiration Date Visits Re quested Visits Authorized [id number] Closed 05/04/2024 07/03/2024 1 1 Specialty Diagnoses / Procedures Referred By Contac t Referred To Contact Physical Therapy Diagnoses Spinal stenosis, lumbar region with neurogenic claudication Procedures NV PHYSICAL THERAPY EVALUATION LOW COMPLEX 20 MINS Prem Ding MD [address] [place] [address] Zoraida Bianchi, PT [address] [facility] [address] [place] [address] Referral ID Status Reason Start Date Expiration Date Visits Requested Visits Authorized [id number] Authorized Consult and Treat 03/20/2024 04/20/2024 12 [...] NIGHTLY, First dose on Tue12/30/20 at 2100 2052 (Given - Provider: Ale Sutton RN - Comment: Per Patient request) 204 (Given - Provider: Ale Sutton RN - [...] refused) 08 (Given - Provider: Fabiola Nayak RN)2100 (Due) cariprazine hcl (VRAYLAR) capsule 4.5 mg 4.5 mg, Oral, DAILY, First dose on Tue12/31/20 at 0900, Do not crush or break. 0853 (Given - Provider: Ale Sutton RN) 0816 (Given - Provider: Fabiola Nayak RN) ceFAZolin (ANCEF) 2000 mg in dextrose 3 % 50 mL IVPB (duplex) (COMPLETED) 2,000 mg, Intravenous, PIPELINE SUPERINTENDENT TO O.R., 1 dose, On Tue12/30/20 at 0800, Pre-op (day of surgery) 0845 (Given - Provider: Sonia Chisholm APRN - TELECOMMUNICATIONS LINESWORKER - Comment: IVPB slow) ceFAZolin (ANCEF) 2000 [...] Nayak RN)1900 (Due - Provider: Usama May, [facility]) cyanocobalamin injection 1,000 mcg 1,000 mcg, Intramuscular, [...] IVPB 80 mg (COMPLETED) 80 mg, Intravenous, PIPELINE SUPERINTENDENT TO O.R., 1 dose, On Tue12/30/20 at [...] First dose on Tue12/30/20 at 2100, Post-op 2052 (Given - Provider: Ale Sutton RN) 0854 [...] Ale Sutton RN)1426 (Given - Provider: Ale Sutton, FATUMA)1845 (Given - Provider: Ale Sutton RN)2253 (Given - Provider: Ale Sutton RN) 0302 (Given - Provider: Izabela Sierra LPN)0816 (Given - Provider: Fabiola Nayak, FATUMA)1242 (Given - Provider: Fabiola Nayak RN) rOPINIRole [...] (Given - Provider: Jamila Walls APRN - TELECOMMUNICATIONS LINESWORKER)1506 (Given - Provider: ALMA Valadez CRNA) famotidine [...] Until Discontinued, Formulary interchange for Lisinopri/HCTZ 20/12.5mg. 1918 (Given - Provider: Lizzy Kwok RN) 0900 [...] crush or break. Substituted for Omeprazole (PRILOSEC). 06 (Given - Provid er: Lizzy Kwok RN) [...] or Central Line = 20 mL/lumen, Post-op 2107 (Not Given - Provider: Lizzy Kwok RN [...] 0555 (New Bag - Provider: Lizzy Kwok, RN)0846 (Stopped - Provider: Eve Solis, FATUMA) lactated ringers IV soln infusion (CANCELED) IntraVENous, at 125 mL/hr, CONTINUOUS, Starting on Tue10/11/23 at 1000, Pre-op (day of surgery) 0959 (New Bag - Provider: Kamla Manley RN)1115 (NoRateChange - Provider: Jamila Walls APRN - TELECOMMUNICATIONS LINESWORKER)1509 (Anesthesia Volume Adjustment - Provider: ALMA Valadez TELECOMMUNICATIONS LINESWORKER)2100 (Stopped - Provider: Lizzy Kwok RN) PRN [...] PACU only 1631 (Given - Provider: Serina Schmidt, RN)1659 (Given - Provider: Serina Schmidt RN) lidocaine-EPINEPHrine 1 %-1:531219 injection (CANCELED) PRN, Starting on Tue10/11/23 at [...] 2108 (Given - Provider: Lizzy Kwok RN) 0313 [...] from all sources in 24 hours., Post-op 4 (Given - Provid er: Lizzy Kwok RN) oxyCODONE-acetaminophen (PERCOCET) 5-325 MG per tablet 2 tablet 2 tablet, Oral, EVERY 4 HOURS PRN, Starting on Tue10/11/23 at 181, Until Discontinued, Pain Severe (7-10), Maximum dose of acetaminophen is 4000 mg from all sources in 24 hours., Post-op 1918 (Given - Provider: Lizzy Kwok RN) 0013 (Given - Provider: Lizzy Kwok RN)1108 (Given - Provider: Eve Solis RN) rOPINIRole (REQUIP) tablet 1 mg 1 mg, Oral, NIGHTLY PRN, Starting on Tue10/11/23 at 181, Until Discontinued, see chart sod chloride IRR [...] Tue10/11/23 at 1817, Until Discontinued, Muscle spasms 222 (Given - Provider: Lizzy Kwok RN) Linked [...] at 181, Until Discontinued, Nausea, Vomiting, Post-op Or ondansetron (ZOFRAN) injection 4 mgJump to med 4 mg, IntraVENous, EVERY 6 HOURS PRN, Starting on Tue10/11/23 at 181, Until Discontinued, Nausea, Vomiting
Administer if oral route cannot be used.
Post-op Source Comments (unrecognize d section and content) In the event this informatio n is protected by the Federal Confidentiality of Alcohol and Drug Abuse Patient Records regulations: The Federal rules restrict any use of the information to criminally investigate or prosecute any alcohol or drug abuse patient.[facility] the event this information is protected by the Federal Confidentiality of Alcohol and Drug Abuse Patient Records regulations: The Federal rules restrict any use of the information to criminally investigate or prosecute any alcohol or drug abuse patient.[facility] the event this information is protected by the Federal Confidentiality of Alcohol and Drug Abuse Patient Records regulations: The Federal rules restrict any use of the information to criminally investigate or prosecute any alcohol or drug abuse patient.[facility] the event this information is protected by the Federal Confidentiality of Alcohol and Drug Abuse Patient Records regulations: The Federal rules restrict any use of the information to criminally investigate or prosecute any alcohol or drug abuse patient.[facility] the event this information is protected by the Federal Confidentiality of Alcohol and Drug Abuse Patient Records regulations: The Federal rules restrict any use of the information to criminally investigate or prosecute any alcohol or drug abuse patient.[facility] the event this information is protected by the Federal Confidentiality of Alcohol and Drug Abuse Patient Records regulations: The Federal rules restrict any use of the information to criminally investigate or prosecute any alcohol or drug abuse patient.[facility] Hospital[facility] the event this information is protected by the Federal Confidentiality of Alcohol and Drug Abuse Patient Records regulations: The Federal rules restrict any use of the information to criminally investigate or prosecute any alcohol or drug abuse patient.[facility] the event this information is protected by the Federal Confidentiality of Alcohol and Drug Abuse Patient Records regulations: The Federal rules restrict any use of the information to criminally investigate or prosecute any alcohol or drug abuse patient.[facility] the event this information is protected by the Federal Confidentiality of Alcohol and Drug Abuse Patient Records regulations: The Federal rules restrict any use of the information to criminally investigate or prosecute any alcohol or drug abuse patient.[facility] the event this information is protected by the Federal Confidentiality of Alcohol and Drug Abuse Patient Records regulations: The Federal rules restrict any use of the information to criminally investigate or prosecute any alcohol or drug abuse patient.[facility] the event this information is protected by the Federal Confidentiality of Alcohol and Drug Abuse Patient Records regulations: The Federal rules restrict any use of the information to criminally investigate or prosecute any alcohol or drug abuse patient.[facility] the event this information is protected by the Federal Confidentiality of Alcohol and Drug Abuse Patient Records regulations: The Federal rules restrict any use of the information to criminally investigate or prosecute any alcohol or drug abuse patient.[facility] the event this information is protected by the Federal Confidentiality of Alcohol and Drug Abuse Patient Records regulations: The Federal rules restrict any use of the information to criminally investigate or prosecute any alcohol or drug abuse patient.[facility] the event this information is protected by the Federal Confidentiality of Alcohol and Drug Abuse Patient Records regulations: The Federal rules restrict any use of the information to criminally investigate or prosecute any alcohol or drug abuse patient.[facility] the event this information is protected by the Federal Confidentiality of Alcohol and Drug Abuse Patient Records regulations: The Federal rules restrict any use of the information to criminally investigate or prosecute any alcohol or drug abuse patient.[facility] the event this information is protected by the Federal Confidentiality of Alcohol and Drug Abuse Patient Records regulations: The Federal rules restrict any use of the information to criminally investigate or prosecute any alcohol or drug abuse patient.[facility] the event this information is protected by the Federal Confidentiality of Alcohol and Drug Abuse Patient Records regulations: The Federal rules restrict any use of the information to criminally investigate or prosecute any alcohol or drug abuse patient.[facility] Care Teams (unrecognized sec tion and content) Team Status: Active Member Role Status Dates NON STAFF Primary Care Provider Active Team Status: Active Member Role Status Dates NON STAFF Primary Care Provider Active Start: March 15, 2025 Lee Pichardo DO Admit Provider Active Start: March 15, 2025 Patrica Pfeiffer MD Other Provider Active Start: A ugust 2024 Jomar Suárez MD Other Provider Active Start: Mar us2024 Yamil Bryant II, DO Other Provider Active Start: March 15, 2025 Lee Ignacio MD Other Provider Active Start: March 15, 2025 Rei Maya DO Attending Provider Active St art: March 15, 2025 Rei Maya DO Other Provider Active Start: March 15, 2025 Rosi Pena , BLANKING PRESS OPERATOR Other Provider Active Start: March 15, 2025 Doris Niko , DO Other Provider Active Sta rt: March 15, 2025 Davion Hair , DO FELLOW Other Provider Active Start: March 15, 2025 Robert Rodriguez , DO FELLOW Other Provider Active S tart: March 15, 2025 Jamel Loaiza MD Other Provider Active Start: March 15, 2025 Team Status: Inactive Member Role Status Dates Yodit Angelina Riley , Attending Provider Active St art: April 16, 2025 End: April 16, 2025 NON STAFF Primary Care Provider Active Start: April 16, 2025 End: April 16, 2025 Senior Net Developer Relationship Specialty Start Date End Date Cristiano Graham Sr. [address] [facility] [place] [address] PCP - General Family Practice 12/02/21 Vick Maxwell MD [address] [place] [address] Referring Pain Management 12/02/21 Team Status: Inactive Member Role Status Dates Cristiano Graham DO Primary Care Provider Active Jory Ulrich PA-C Attending Provider Active Team Status: Active Member Role Status Dates Cristiano Graham DO Primary Care Provider Active Team Status: Inactive Member Role Status Dates Cristiano Graham DO Primary Care Provider, Attending Nila nova Active Senior Net Developer Relationship Specialty Start Date End Date Cristiano Graham Sr. [address] [facility] [place] [address] PCP - General Family Medicine 12/02/21 Vick Maxwell MD [address] [place] [address] Referring Pain Management 12/02/21 Senior Net Developer Relationship Specialty Start Date End Date Cristiano Graham Sr. [address] [facility] [place] [address] PCP - General Family Medicine 12/02/21 Vick Maxwell MD [address] [place], [place] [id number] Referring Pain Management 12/02/21 Senior Net Developer Relationship Specialty Start Date End Date Cristiano Graham Sr. [address] [place] [address] PCP - General Family Medicine 12/02/21 Vick Maxwell MD [address] [place] [address] Referring Pain Management 12/02/21 Senior Net Developer Relationship Specialty Start Date End Date Cristiano Graham Sr. [address] [place] [address] PCP - General Family Medicine 12/02/21 Vick Maxwell MD [address] [place] [address] Referring Pain Management 12/02/21 Senior Net Developer Relationship Specialty Start Date End Date Cristiano Graham Sr. [address] [facility] [place] [address] PCP - General Family Medicine 12/02/21 Vick Maxwell MD [address] [place] [address] Referring Pain Management 12/02/21 Senior Net Developer Relationship Specialty Start Date End Date Cristiano Graham Sr. [address] [place] [address] PCP - General Family Medicine 12/02/21 Vick Maxwell MD [address] [place] [address] Referring Pain Management 12/02/21 Team Status: Inactive Member Role Status Dates Cristiano Graham DO Primary Care Provider Active Michel Venegas MD Attending Provider Active Senior Net Developer Relationship Specialty Start Date End Date Cristiano Graham Sr. [address] [facility] [place] [address] PCP - General Family Medicine 12/02/21 Vick Maxwell MD [address] [place] [address] Referring Pain Management 12/02/21 Senior Net Developer Relationship Specialty Start Date End Date Cristiano Graham . [address] [facility] [place] [address] PCP - General Family Medicine 12/02/21 Vick Maxwell MD [address] [place] [address] Referring Pain Management 12/02/21 Senior Net Developer Relationship Specialty Start Date End Date Cristiano Graham Sr. [address] [facility] [place] [address] PCP - General Family Medicine 12/02/21 Vick Maxwell MD [address] [place] [address] Referring Pain Management 12/02/21 Team Status: Inactive Member Role Status Dates Cristiano Graham , DO Primary Care Provider Active Hussain Cristobal , DO Emergency Provider Active Senior Net Developer Relationship Specialty Start Date End Date Cristiano Graham . [address] [facility] [place] [address] PCP - General Family Medicine 12/02/21 Vick Maxwell MD [address] [place] [address] Referring Pain Management 12/02/21 Senior Net Developer Relationship Specialty Start Date End Date Cristiano Graham [facility] [address] [facility] [place] [address] PCP - General Family Medicine 12/02/21 Vick Maxwell MD [address] [place] [address] Referring Pain Management 12/02/21 Senior Net Developer Relationship Specialty Start Date End Date Cristiano Graham Sr. [address] [place] [address] PCP - General Family Medicine 12/02/21 Vick Maxwell MD [address] [place] [address] Referring Pain Management 12/02/21 Team Status: Inactive [...] Inactive Member Role Status Dates Gail Garcia APRN-TWISTER HAND-C Attending Provider Active PHYSICIAN NO FAMILY Primary Care Provider Active Team Status: Inactive Member Role Status Dates PHYSICIAN NO FAMILY Primary Care Provider Active Start: September 26, 2023 End: September 27, 2023 Nabil Maya DO Emergency Provider Active Sta rt: September 26, 2023 End: September 27, 2023 Senior Net Developer Relationship Specialty Start Date End Date Cristiano Graham Sr., DO [address] [place] [address] PCP - General Family Medicine 07/20/23 Senior Net Developer Relationship Specialty Start Date End Date Cristiano Graham Sr., DO [address] [place] [address] PCP - General Family Medicine 07/20/23 Team Status: Inactive Member Role [...] BE BASED ON THE PRIMARY CLINICAL RECORDS. [employer] provides no warranty or guarantee of the accuracy or completeness of information in this document.
--- OUTSIDE RECORDS SUMMARY | 2025-05-26 18:58 | XMS_ITS | Encounter Summary ---
Author Organization [facility] Address [address] [place] [address] Care Team Providers Care Disability Insurance Claim Examiner Name Role Phone Vick Maxwell MD Unavailable [phone] [place] [address] Sr., Cristiano CARBONE Primary Care Provider + Source Comments In the event this information is protected by the Federal Confidentiality of Alcohol and Drug AbusePatient Records regulations: The Federal rules restrict any use of the information to criminally investigate or prosecute any alcohol or drug abuse patient.[facility] Encounter Details Date Type Department Care Team (Late st Contact Info) Description 12/10/2021 Abstract Neurology [address] [phone] (Historical), Unknown Social History Tobacco Use Types [...] N ot on file 11/11/2020 Data from: [email or web address] Last address used for calculation Not on [...] on filedocumented in this encounter Care Teams Disability Insurance Claim Examiner Relationship Specialty Start Date End Date Cristiano De Leon Sr., DO [address] [place] [address] PCP - General Family Medicine 12/02/21 Vick Maxwell MD [address] [place] [address] Referring Pain Management 12/02/21 documented as of this encounter
--- OUTSIDE RECORDS SUMMARY | 2025-05-26 18:59 | XMS_ITS ---
Author Organization [facility] Address [address] [place], [place] [id number] Care Team Providers Care Class 1 Owner Operator Name Role Phone Vick Maxwell MD Unavailable [phone] [place] [address] Sr., Cristiano CARBONE Primary Care Provider + Transplant Episode Kidney Potential Donor [facility] ([place], [place]) - [facility] Referred on 04/13/2017 Marked as Ineligible on 04/13/2017 Reason: Not a Candidate Kidney CoordinatorConversion Laundry Agent Phone: N/A Fax: N/A Email: N/A Care Team Name Role Phone Fax Email Conversion Laundry Agent Kidney Coordinator N/A N/A N/A Events Pre-Donation Referred: 04/13/2017
--- OUTSIDE RECORDS SUMMARY | 2025-05-26 18:59 | XMS_ITS | Patient Health Record ---
Author Organization [facility] [place] Address [address] [place] [address] Care Team Providers Care Veneer Production Machine Operator Name Role Phone Cristiano De Leon DO Primary Care Provider Unavaila ble Reason For Referral No Information Plan Of Treatment No Information
--- NOTE | 2025-05-26 19:06 | ECG_ITS ---
The [facility] Test Date: 2025-05-26 Pat Name: GREGG ROY Department: Room: - Gender: Female [employer]: : 1975 Requested By: [id number] Order Number: [id number] Reading MD: CARMELA GAVIRIA M.D. Measurements Intervals [employer] Rate: 88 P: 70 RI: 122 QRS: 79 QRSD: 90 T: 70 QT: 370 QTc: 415 Interpretive Statements 1100 Sinus rhythm [address] depression 9150 abnormal ECG Compared to ECG 03/15/2025 18:32:26 ST (T wave) deviation now present Electronically Signed On 05-26-2025 19:38:20 EDT by CARMELA GAVIRIA M.D.
--- NOTE | 2025-05-26 19:08 | ED.URI1 ---
HPI - URI/Sore Throat General Chief Complaint: Upper Respiratory Infection Stated Complaint: Upper Respiratory Infection Time Seen by Provider: 05/26/25 18:59 Source: patient Limitations: no limitations History of Present Illness HPI Narrative: This 49-year-old female with a history of tobacco use who is seen in this emergency department on May 20 for sinus symptoms after being seen on May 19 at urgent care for sinus symptoms presents for evaluation of ongoing headache. The patient states that she has sinus pressure that is now going into her teeth. She has a dry cough but occasionally coughs up mucus. She states the drainage when she blows her nose is yellow. She has been using Zofran and doxycycline. She states she has a hard time taking the antibiotics because of the GI side effects. She denies any chest pain. She has back pain but this is not new for her. She has no abdominal pain but does have ongoing nausea. She has no lower extremity pain or swelling. She denies any fever. She request something for the pain in her sinuses and face. She states that she was seen here in March and transferred to the [facility]'s ICU for pneumonia. I did review her OARRS report and she takes Suboxone and clonazepam on a monthly basis. Related Data Home Medications ?Medication ?Instructions ?Recorded ?Confirmed cyanocobalamin (vitamin B-12) 1,000 mcg IM .monthly 09/22/23 05/20/25 1,000 mcg/mL injection solution cyclobenzaprine 10 mg tablet 10 mg PO DAILY 09/22/23 05/20/25 omeprazole 20 mg capsule,delayed 20 mg PO DAILY 09/22/23 05/20/25 release gabapentin 800 mg tablet 800 mg PO TID 05/20/25 05/20/25 ropinirole 1 mg tablet 1 mg PO BEDTIME PRN restless leg(s) 05/20/25 05/20/25 trazodone 150 mg tablet 150 mg PO BEDTIME 05/20/25 05/20/25 Previous Rx's ?Medication ?Instructions ?Recorded tizanidine 4 mg tablet (Zanaflex) 4 mg PO TID PRN muscle spasticity 05/23/23 5 days #15 tabs albuterol sulfate 90 mcg/actuation 2 inh inhalation Q6H PRN shortness 05/20/25 aerosol inhaler of breath or wheezing #8.5 grams fluticasone propionate 50 1 spray intranasal DAILY PRN sinus 05/20/25 mcg/actuation nasal congestion #16 grams spray,suspension (Flonase Allergy Relief) nabumetone 750 mg tablet 750 mg PO BID PRN pain #14 tabs 05/20/25 ondansetron 4 mg disintegrating 4 mg PO Q6H PRN nausea and 05/20/25 tablet vomiting #20 tabs Allergies Allergy/AdvReac Type Severity Reaction Status Date / Time No Known Drug Allergies Allergy Verified 05/23/23 12:59 Review of Systems ROS Status of ROS 10 or more systems reviewed and unremarkable except as noted in history and below [facility] Social History Smoking status: Current every day smoker Little interest or pleasure in doing things: not at all Feeling down, depressed, or hopeless: not at all Exam Narrative Exam Narrative: Vital signs and Nursing Notes reviewed: Patient is afebrile, tachycardic with a pulse of 126, blood pressure is elevated at 132/106, she is not hypoxic with pulse ox of 98% on room air General: Thin female, she is awake, alert, oriented, no acute distress, lying comfortably on the stretcher HEENT: Normocephalic atraumatic, mucous membranes are moist and pink, eyes are clear, normal conjunctiva, vision is grossly intact, posterior pharynx is normal in appearance. Tympanic membranes are normal bilaterally Neck: Supple, no meningeal signs, no anterior or posterior cervical lymphadenopathy Chest: Lungs are diminished but clear to auscultation with good air entry, there is no wheezing rhonchi or rales appreciated no accessory muscle use, patient is speaking in complete sentences-no chest wall tenderness to palpation CVS: Regular rate and rhythm S1-S2, tachycardic at triage with a pulse of 126, no murmurs rubs or gallops, pulses are brisk and equal bilaterally ABD: Soft, nondistended, nontender, no rebound guarding or rigidity, bowel sounds are normal, no pulsatile masses appreciated Extremities: Moving all extremities, no lower extremity tenderness or swelling noted, negative Homans' sign, pulses are brisk and equal bilaterally Skin: Normal in appearance without rash,pallor, petechiae or purpura Neuro: No focal deficits Constitutional Vital Signs, click to edit/add: Last Vital Signs Temp 97.8 F 05/26/25 18:55 Pulse 76 05/26/25 20:32 Resp 19 05/26/25 20:32 BP 125/73 05/26/25 20:37 Pulse Ox 98 05/26/25 18:55 O2 Del Method Room Air 05/26/25 18:55 Course Vital Signs Vital signs: Vital Signs Temperature 97.8 F 05/26/25 18:55 Pulse Rate 126 H 05/26/25 18:55 Respiratory Rate 18 05/26/25 18:55 Blood Pressure 132/106 H 05/26/25 18:55 Pulse Oximetry 98 05/26/25 18:55 Oxygen Delivery Method Room Air 05/26/25 18:55 Temperature 97.8 F 05/26/25 18:55 Pulse Rate 76 05/26/25 20:32 Respiratory Rate 19 05/26/25 20:32 Blood Pressure 125/73 05/26/25 20:37 Pulse Oximetry 98 05/26/25 18:55 Oxygen Delivery Method Room Air 05/26/25 18:55 MDM - URI/Sore Throat MDM Narrative Medical decision making narrative: This 49-year-old female, smoker who is seen here on May 20 for sinus pain and pressure and prescribed doxycycline and Zofran and was admitted to [facility] in March for pneumonia presents for evaluation of ongoing sinus pressure. She has pain in the frontal sinuses, behind her eyes and going into her teeth. She was noted to be tachycardic upon arrival with a pulse of 126 at triage. She denies any chest pain but does have an ongoing cough. She is not having any abdominal pain. She has no lower extremity pain or swelling. She has not had any fever. I did review her OARRS report and she is on Suboxone and Klonopin. EKG done upon arrival as a sinus rhythm at [address] changes. An IV was placed and she was medicated with IV fluids, Zofran for nausea and Toradol. Routine labs are reviewed. She has normal white count and hemoglobin. Electrolytes are normal with a mildly low sodium at 132 and potassium of 3.2.. Troponin and D-dimer are both normal. Two-view chest x-ray was ordered due to the history of tobacco use and cough. There is some scar tissue/atelectasis in the right middle lobe otherwise the chest x-ray is clear. I did compare this chest x-ray with a chest x-ray from March when she had pneumonia and her pneumonia appears to have resolved. She is feeling better after the Tylenol and fluids. I explained to her in light of her being on Suboxone I cannot prescribe her narcotic pain medication. She verbalizes understanding of this. She does have Flonase that she is using at home which may help her sinus pressure somewhat. I prescribed her ibuprofen and Mucinex D for her ongoing sinus pressure and suggested warm compresses can also be used to relieve some of her discomfort. Medical Records Attestation: I reviewed the patient's medical records. Lab Data Attestation: I reviewed the patient's lab results. Labs: Lab Results 05/26/25 Range/Units 19:20 WBC 10.8 (4.0-11.0) 10^3/uL RBC 4.37 (4.20-5.40) 10^6/uL Hgb 12.9 (12.0-16.0) g/dL Hct 37.8 (36.0-48.0) % MCV 86.5 (81.0-99.0) fL MCH 29.5 (26.7-34.0) pg MCHC 34.1 (29.9-35.2) g/dL RDW 16.2 H (11.0-15.0) % Plt Count 438 (150-450) 10^3/uL MPV 8.6 L (9.5-13.5) fL Neut % (Auto) 84.8 H (43.0-75.0) % Lymph % (Auto) 11.6 L (20.5-60.0) % [place] % (Auto) 3.1 (1.7-12.0) % Eos % (Auto) 0.1 L (0.9-7.0) % Baso % (Auto) 0.2 (0.2-2.0) % Neut # (Auto) 9.2 H (1.4-6.5) 10^3/uL Lymph # (Auto) 1.3 (1.2-3.8) 10^3/uL [place] # (Auto) 0.3 (0.3-0.8) 10^3/uL Eos # (Auto) 0.0 (0.0-0.7) 10^3/uL Baso # (Auto) 0.0 (0.0-0.1) 10^3/uL Abs Immat Gran (auto) 0.02 (0.00-0.03) 10^3/uL Imm/Tot Granulo (auto) 0.2 (0.0-0.5) % D-Dimer 0.28 (<=0.59) mg/L FEU Sodium 132 L (136-145) mmol/L Potassium 3.2 L (3.5-5.1) mmol/L Chloride 97 L (98-107) mmol/L Carbon Dioxide 21.7 (21.0-32.0) mmol/L Anion Gap 16.5 BUN 11.0 (7.0-18.0) mg/dL Creatinine 0.71 (0.55-1.02) mg/dL Est GFR ( Amer) >60 (>=60 mL/min/1.73m^2) Est GFR (Non-Af Amer) >60 (>=60 mL/min/1.73m^2) BUN/Creatinine Ratio 15.5 Glucose 123 H (74-106) mg/dL Calcium 8.8 (8.5-10.1) mg/dL Total Bilirubin 0.2 (0.2-1.0) mg/dL AST 14 L (15-37) U/L ALT 20 (14-59) U/L Alkaline Phosphatase 113 (46-116) U/L Troponin I High Sens <4.0 L (4.0-51.3) pg/mL Total Protein 7.2 (6.4-8.2) g/dL Albumin 3.5 (3.4-5.0) g/dL Globulin 3.7 g/dL Albumin/Globulin Ratio 0.9 ECG Data Attestation: I personally reviewed and interpreted this ECG as follows: (Sinus rhythm [address] depression in leads II, aVF, V4 and V5, normal axis, no acute ST segment elevation) Discharge Plan Discharge Chief Complaint: Upper Respiratory Infection Clinical Impression: Frontal sinus pain Patient Disposition: Home, Self-Care Time of Disposition Decision: 20:29 Condition: Good Prescriptions / Home Meds: No Action tizanidine [Zanaflex] 4 mg tablet 4 mg PO TID PRN (Reason: muscle spasticity) 5 Days Qty: 15 0RF cyclobenzaprine 10 mg tablet 10 mg PO DAILY cyanocobalamin (vitamin B-12) 1,000 mcg/mL solution 1,000 mcg IM .monthly omeprazole 20 mg capsule,delayed release(DR/EC) 20 mg PO DAILY gabapentin 800 mg tablet 800 mg PO TID trazodone 150 mg tablet 150 mg PO BEDTIME ropinirole 1 mg tablet 1 mg PO BEDTIME PRN (Reason: restless leg(s)) nabumetone 750 mg tablet 750 mg PO BID PRN (Reason: pain) Qty: 14 0RF albuterol sulfate 90 mcg/actuation HFA aerosol inhaler 2 inh inhalation Q6H PRN (Reason: shortness of breath or wheezing) Qty: 8.5 0RF ondansetron 4 mg tablet,disintegrating 4 mg PO Q6H PRN (Reason: nausea and vomiting) Qty: 20 0RF fluticasone propionate [Flonase Allergy Relief] 50 mcg/actuation spray,suspension 1 spray intranasal DAILY PRN (Reason: sinus congestion) Qty: 16 0RF Rx Instructions: administer into each nostril Print Language: Lao Instructions: Nasal Endoscopy (DC) Additional Instructions: Continue current antibiotics and Flonase. Follow-up with ENT as soon as possible. Use ibuprofen and warm compresses for pain. Referrals: Physician,Non-Staff, MD [Primary Care Provider] - 1 week Discharge Date/Time: 05/26/25 20:41
[2025-05-26] MEDS: 0.9 % SODIUM CHLORIDE 1,000 ML 1000 ML IV (19:23)
[2025-05-26] MEDS: KETOROLAC TROMETHAMINE 30 MG/ML VIAL IVP (19:23)
[2025-05-26 19:37] LABS: Hematocrit 37.8 % (36.0-48.0); Hemoglobin 12.9 g/dL (12.0-16.0); Immature Granulocytes Abs Auto 0.02 10^3/uL (0.00-0.03); Immature Granulocytes Pct Auto 0.2 % (0.0-0.5); Lymphocytes Absolute Auto 1.3 10^3/uL (1.2-3.8); Mean Corpuscular HGB Conc 34.1 g/dL (29.9-35.2); Mean Corpuscular Hemoglobin 29.5 pg (26.7-34.0); Mean Corpuscular Volume 86.5 fL (81.0-99.0); Platelet Count 438 10^3/uL (150-450); Red Blood Count 4.37 10^6/uL (4.20-5.40); White Blood Count 10.8 10^3/uL (4.0-11.0)
[2025-05-26 19:55] LABS: Alanine Aminotransferase 20 U/L (14-59); Albumin Globulin Ratio 0.9; Albumin Level 3.5 g/dL (3.4-5.0); Alkaline Phosphatase 113 U/L (46-116); Anion Gap 16.5; Aspartate Amino Transferase 14 U/L (15-37); Blood Urea Nitrogen 11.0 mg/dL (7.0-18.0); Calcium 8.8 mg/dL (8.5-10.1); Carbon Dioxide 21.7 mmol/L (21.0-32.0); Chloride 97 mmol/L (98-107); Estimated GFR (African America >60 (>=60 mL/min/1.73m^2); Estimated GFR (Non-African Ame >60 (>=60 mL/min/1.73m^2); Globulin 3.7 g/dL; Glucose 123 mg/dL (74-106); Potassium 3.2 mmol/L (3.5-5.1); Sodium 132 mmol/L (136-145); Total Protein 7.2 g/dL (6.4-8.2)
--- NOTE | 2025-05-26 20:00 | XR_ITS ---
The [address] [address] Patient Name: GREGG ROY MRN: [id number] date: 1975 Sex: F Assigned Patient Location: ER Current Patient Location: ED.MAIN Accession/Order Number: [id number] Exam Date: 05/26/2025 20:05 Report Date: 05/27/2025 08:20 At the request of: ROMULO WASHINGTON MD Procedure: XR chest 2V Chest 2 views CLINICAL HISTORY: cough, congestion COMPARISON: Chest 03/15/2025 FINDINGS: Heart appears normal in size. Improved aeration of the right lung compared to the prior study with residual scarring. No new consolidation pneumothorax pleural effusion or free air. XR/XR chest 2V IMPRESSION: IMPROVED AERATION OF THE RIGHT LUNG COMPARED TO THE PRIOR STUDY SUGGESTIVE OF RESPONSE TO TREATMENT. THERE IS RESIDUAL SCARRING. Impression dictated by: Davion Copeland Jr., D.OGregg 05/27/2025 8:20 AM Dictation Location: [employer] Electronically authenticated by: [id number] Y Date: 05/27/2025 08:20
== END 2025-05-26 20:41 | disposition home or self-care (01) ==
PROVIDERS: Emergency Provider Emergency Medicine
DX: J32.9 Chronic sinusitis, unspecified (principal); Z87.01 Personal history of pneumonia (recurrent); Z79.899 Other long term (current) drug therapy; F17.200 Nicotine dependence, unspecified, uncomplicated
CPT/HCPCS: 36415; 71046; 80053; 84484; 85025; 85378; 93005; 96374; 96375; 99285; J1885; J2405